=== PATIENT | female | born 1960 | race Caucasian/White ===

== ENCOUNTER → 2016-08-17 | Outpatient (REF) | payer OTHER ==
[~2016-08-17] MED LIST: ALBU17IN INH; ALDA25TA2 PO; ASPI81TA85 PO; BYDU1INJ SC; COZA50TA PO; DRIS50002 PO; FIBE625T PO; FLON1SPR; FLUO10CA8 PO; K-TA1TAB PO; MIRA33504 PO; PRAV40TA2 PO; PRIL20CA9 PO; PROZ10CA7 PO; PROZ20CA11 PO; TRIC145T PO
[2016-08-17 12:21] LABS: ALBUMIN 3.4 GM/DL (3.2-5.2); ALBUMIN/GLOBULIN RATIO 0.89 (1.00-1.93); BILIRUBIN,TOTAL 0.3 MG/DL (0.2-1.0); CALCIUM LEVEL 11.6 MG/DL (8.5-10.1); CREATININE FOR GFR 1.53 MG/DL (0.55-1.02); GLOMERULAR FILTRATION RATE 37.5 (>51); POTASSIUM SERUM 4.6 MEQ/L (3.5-5.1); TOTAL PROTEIN 7.2 GM/DL (6.4-8.2)
== END ==
LOC: M SFHCPLAZ 08:08
PROVIDERS: ATTEND Nurse Practitioner Family
DX: N18.3 Chronic kidney disease, stage 3 (moderate) (principal); E11.21 Type 2 diabetes mellitus with diabetic nephropathy

== ENCOUNTER → 2016-08-20 | Outpatient (REF) | payer OTHER ==
[2016-08-20 14:18] LABS: ALBUMIN 3.4 GM/DL (3.2-5.2); CREATININE FOR GFR 1.55 MG/DL (0.55-1.02); PHOSPHORUS LEVEL 2.9 MG/DL (2.5-4.9); POTASSIUM SERUM 4.6 MEQ/L (3.5-5.1)
== END ==
LOC: M SFHCPLAZ 08:28
PROVIDERS: ATTEND Nurse Practitioner Family
DX: E83.52 Hypercalcemia (principal)

== ENCOUNTER → 2016-09-21 | Outpatient (REF) | payer OTHER ==
[2016-09-21 12:53] LABS: CALCIUM LEVEL 10.3 MG/DL (8.5-10.1); CREATININE FOR GFR 1.48 MG/DL (0.55-1.02); POTASSIUM SERUM 4.4 MEQ/L (3.5-5.1)
== END ==
LOC: M SFHCPLAZ 08:31
PROVIDERS: ATTEND Nurse Practitioner Family
DX: E11.21 Type 2 diabetes mellitus with diabetic nephropathy (principal); E83.52 Hypercalcemia

== ENCOUNTER → 2016-10-24 | Outpatient (REF) | payer OTHER | LOC: M SFHCPLAZ 08:39 | PROVIDERS: ATTEND Nurse Practitioner Family | DX: I65.9 Occlusion and stenosis of unspecified precerebral artery (principal); E11.21 Type 2 diabetes mellitus with diabetic nephropathy ==

== ENCOUNTER → 2017-01-24 | Outpatient (REF) | payer OTHER ==
[~2017-01-24] MED LIST changes: -TRIC145T PO; +TRIC145T22 PO
[2017-01-24 12:51] LABS: ALBUMIN 3.6 GM/DL (3.2-5.2); ALBUMIN/GLOBULIN RATIO 0.86 (1.00-1.93); BILIRUBIN,TOTAL 0.4 MG/DL (0.2-1.0); CALCIUM LEVEL 12.1 MG/DL (8.5-10.1); CREATININE FOR GFR 1.81 MG/DL (0.55-1.02); GLOMERULAR FILTRATION RATE 30.9 (>51); POTASSIUM SERUM 4.6 MEQ/L (3.5-5.1); TOTAL PROTEIN 7.8 GM/DL (6.4-8.2)
== END ==
LOC: M SFHCPLAZ 08:20
PROVIDERS: ATTEND Nurse Practitioner Family
DX: N18.3 Chronic kidney disease, stage 3 (moderate) (principal); E78.2 Mixed hyperlipidemia; E11.65 Type 2 diabetes mellitus with hyperglycemia

== ENCOUNTER → 2017-01-25 | Outpatient (REF) | payer OTHER | LOC: M SFHCPLAZ 12:52 | PROVIDERS: ATTEND Family Medicine | DX: E83.52 Hypercalcemia (principal); Z53.9 Procedure and treatment not carried out, unspecified reason ==

== ENCOUNTER → 2017-01-29 | Outpatient (REF) | payer OTHER ==
[2017-01-29 15:24] LABS: TOTAL PROTEIN 7.6 GM/DL (6.4-8.2)
[2017-01-31 10:40] LABS: ALBUMIN 4.02 GM/DL (3.29-5.55); ALBUMIN % 52.9 % (55.8-66.1)
[2017-01-31 10:41] LABS: GAMMA GLOBULIN % 17.8 % (11.1-18.8)
[2017-01-31 14:13] LABS: FREE KAPPA LIGHT CHAINS SERUM 77.2 mg/L (3.3-19.4); FREE LAMBDA LIGHT CHAINS SERUM 40.3 mg/L (5.7-26.3); KAPPA/LAMBDA RATIO SERUM 1.92 (0.26-1.65)
== END ==
LOC: M LAB REF 13:23
PROVIDERS: ATTEND Internal Medicine Nephrology
DX: R80.9 Proteinuria, unspecified (principal); E83.52 Hypercalcemia

== ENCOUNTER → 2017-01-31 | Outpatient (REF) | payer OTHER | LOC: M LABDRAWP 14:31 | PROVIDERS: ATTEND Family Medicine | DX: E83.52 Hypercalcemia (principal); E78.2 Mixed hyperlipidemia; N18.3 Chronic kidney disease, stage 3 (moderate); E11.65 Type 2 diabetes mellitus with hyperglycemia; R94.6 Abnormal results of thyroid function studies ==

== ENCOUNTER → 2017-01-31 | Outpatient (REF) | payer OTHER ==
[2017-01-31 15:13] LABS: ALBUMIN 3.6 GM/DL (3.2-5.2); ALBUMIN/GLOBULIN RATIO 0.92 (1.00-1.93); ALKALINE PHOSPHATASE 78 U/L (45-117); ALT/SGPT 41 U/L (12-78); ANION GAP 9 MEQ/L (8-16); AST/SGOT 26 U/L (15-37); BILIRUBIN,TOTAL 0.3 MG/DL (0.2-1.0); BLOOD UREA NITROGEN 27 MG/DL (7-18); CALCIUM LEVEL 11.1 MG/DL (8.5-10.1); CARBON DIOXIDE LEVEL 23 MEQ/L (21-32); CHLORIDE LEVEL 106 MEQ/L (98-107); CREATININE FOR GFR 1.44 MG/DL (0.55-1.02); FREE T4 1.12 NG/DL (0.76-1.46); GLOMERULAR FILTRATION RATE 40.2 (>51); GLUCOSE, FASTING 241 MG/DL (70-105); POTASSIUM SERUM 4.6 MEQ/L (3.5-5.1); SODIUM LEVEL 138 MEQ/L (136-145); TOTAL PROTEIN 7.5 GM/DL (6.4-8.2)
[2017-02-01 10:10] LABS: THYROID PEROXIDASE ANTIBODY < 28.0 U/ML (<60.0)
== END ==
LOC: M LAB REF 14:35
PROVIDERS: ATTEND Nurse Practitioner Family
DX: E11.65 Type 2 diabetes mellitus with hyperglycemia (principal); E78.2 Mixed hyperlipidemia; N18.3 Chronic kidney disease, stage 3 (moderate); R94.6 Abnormal results of thyroid function studies

== ENCOUNTER → 2017-03-26 | Outpatient (CLI) | payer OTHER ==
--- NOTE | 2017-03-27 16:07 | REP ---
Thyroid uptake and scan: History: Hyperthyroidism. Technique: 378.5 microcuries of I 123 sodium iodide is ingested and 24 uptake value and functional thyroid images are acquired. Findings: The 24 uptake value is low at 12.08% (25-35%). Functional images show asymmetric thyroid lobes, right larger than left. No cold or warm lesion is identified. Impression: Asymmetric size thyroid lobes, right larger than left. Low thyroid uptake. 12%. No cold or warm lesion seen. Signed by Izaiah Dyer MD 03/27/2017 05:04 P
== END ==
LOC: M RAD 08:09
PROVIDERS: ATTEND Internal Medicine Endocrinology, Diabetes & Metabolism
DX: E05.90 Thyrotoxicosis, unspecified without thyrotoxic crisis or storm (principal)

== ENCOUNTER → 2017-04-04 | Outpatient (REF) | payer OTHER ==
[2017-04-04 10:17] LABS: CALCIUM, URINE 8.4 MG/DL
== END ==
LOC: M LAB REF 09:21
PROVIDERS: ATTEND Internal Medicine Endocrinology, Diabetes & Metabolism
DX: E21.3 Hyperparathyroidism, unspecified (principal)

== ENCOUNTER → 2017-04-05 | Outpatient (CLI) | payer OTHER ==
--- NOTE | 2017-04-08 11:09 | DEXA ---
AP SPINE L1 - L4 1.435 1.9 2.8 LT FEMUR TOTAL 1.192 1.5 2.2 RT FEMUR TOTAL 1.189 1.4 2.1 TOTAL BODY TOTAL OTHER LEFT WRIST 0.927 0.6 1.1 DUAL FEMUR FRAX* ASSESSMENT Risk factors: 10 year probability of fracture Major osteoporotic fracture Hip fracture COMMENTS: Normal bone densitometry of the spine and hips. The density of the spine has decreased 0.5% since 07/2007. The density of the left hip has decreased 11.2% since 07/2007. The density of the right hip has decreased 12.4% since 07/2007. The decreased density of the spine does not represent a significant change. The decreased density of the left hip does represent a significant change. The decreased density of the right hip does represent a significant change. FOLLOW-UP: Recommendation for the next bone density exam: 5 years. SANDY
== END ==
LOC: M WHC 08:13
PROVIDERS: ATTEND Internal Medicine Endocrinology, Diabetes & Metabolism
DX: M81.0 Age-related osteoporosis without current pathological fracture (principal)

== ENCOUNTER → 2017-05-06 | Outpatient (REF) | payer OTHER | LOC: M LAB REF 17:07 | PROVIDERS: ATTEND Internal Medicine Nephrology | DX: N18.3 Chronic kidney disease, stage 3 (moderate) (principal); R80.9 Proteinuria, unspecified ==

== ENCOUNTER → 2017-06-05 | Outpatient (CLI) | payer OTHER | LOC: M PAIN 09:00 | DX: M48.061 Spinal stenosis, lumbar region without neurogenic claudication (principal); M79.1 Myalgia; I12.9 Hypertensive chronic kidney disease with stage 1 through stage 4 chronic kidney disease, or unspecified chronic kidney disease; N18.3 Chronic kidney disease, stage 3 (moderate); E11.22 Type 2 diabetes mellitus with diabetic chronic kidney disease; F32.9 Major depressive disorder, single episode, unspecified; E11.21 Type 2 diabetes mellitus with diabetic nephropathy; E78.00 Pure hypercholesterolemia, unspecified; J45.909 Unspecified asthma, uncomplicated; E21.3 Hyperparathyroidism, unspecified; Z88.5 Allergy status to narcotic agent; Z88.6 Allergy status to analgesic agent; Z88.8 Allergy status to other drugs, medicaments and biological substances; Z79.4 Long term (current) use of insulin; Z79.82 Long term (current) use of aspirin; Z79.899 Other long term (current) drug therapy; Z87.891 Personal history of nicotine dependence | CPT/HCPCS: G0463 ==

== ENCOUNTER → 2017-06-18 | Outpatient (REF) | payer OTHER, MEDICAID ==
[2017-06-18 14:10] LABS: ALBUMIN 3.6 GM/DL (3.2-5.2); ALBUMIN/GLOBULIN RATIO 0.92 (1.00-1.93); ALKALINE PHOSPHATASE 97 U/L (45-117); ALT/SGPT 49 U/L (12-78); ANION GAP 6 MEQ/L (8-16); AST/SGOT 30 U/L (7-37); BILIRUBIN,TOTAL 0.4 MG/DL (0.2-1.0); BLOOD UREA NITROGEN 29 MG/DL (7-18); CALCIUM LEVEL 10.5 MG/DL (8.5-10.1); CARBON DIOXIDE LEVEL 26 MEQ/L (21-32); CHLORIDE LEVEL 101 MEQ/L (98-107); CHOLESTEROL LEVEL 220 MG/DL (<200); CHOLESTEROL RISK RATIO 5.945 (<5); CREATININE FOR GFR 1.53 MG/DL (0.55-1.02); GLOMERULAR FILTRATION RATE 37.4 (>51); GLUCOSE, FASTING 227 MG/DL (70-105); HDL CHOLESTEROL 37 MG/DL (>40); LDL CHOLESTEROL 123.6 MG/DL (<100); NON-HDL-C 183 MG/DL; POTASSIUM SERUM 5.1 MEQ/L (3.5-5.1); SODIUM LEVEL 133 MEQ/L (136-145); TOTAL PROTEIN 7.5 GM/DL (6.4-8.2); TRIGLYCERIDES LEVEL 297 MG/DL (<150)
[2017-06-18 14:21] LABS: ESTIMATED AVERAGE GLUCOSE 237 MG/DL (60-110); HEMOGLOBIN A1c 9.9 %
== END ==
LOC: M SFHCPLAZ 13:09
DX: I10 Essential (primary) hypertension (principal); E11.21 Type 2 diabetes mellitus with diabetic nephropathy; E78.2 Mixed hyperlipidemia

== ENCOUNTER → 2017-06-20 | Outpatient (CLI) | payer OTHER | LOC: M WHC 07:53 | DX: Z12.31 Encounter for screening mammogram for malignant neoplasm of breast (principal) | CPT/HCPCS: 77067 ==

== ENCOUNTER → 2017-06-20 | Outpatient (REF) | payer OTHER | LOC: M SFHCWAGY 08:44 | DX: Z12.72 Encounter for screening for malignant neoplasm of vagina (principal) | CPT/HCPCS: 88142 ==

== ENCOUNTER → 2017-07-03 | Outpatient (CLI) | payer OTHER | LOC: M RAD 10:39 | DX: M51.36 Other intervertebral disc degeneration, lumbar region (principal); M79.1 Myalgia | CPT/HCPCS: 72080 ==

== ENCOUNTER → 2017-07-03 | Outpatient (CLI) | payer OTHER | LOC: M PAIN 09:15 | DX: M79.1 Myalgia (principal); M48.061 Spinal stenosis, lumbar region without neurogenic claudication; E11.21 Type 2 diabetes mellitus with diabetic nephropathy; I12.9 Hypertensive chronic kidney disease with stage 1 through stage 4 chronic kidney disease, or unspecified chronic kidney disease; N18.3 Chronic kidney disease, stage 3 (moderate); E55.9 Vitamin D deficiency, unspecified; F32.9 Major depressive disorder, single episode, unspecified; Z79.4 Long term (current) use of insulin; Z79.82 Long term (current) use of aspirin; Z79.891 Long term (current) use of opiate analgesic; Z79.899 Other long term (current) drug therapy; Z87.891 Personal history of nicotine dependence; Z88.8 Allergy status to other drugs, medicaments and biological substances | CPT/HCPCS: G0463 ==

== ENCOUNTER → 2017-07-19 | Outpatient (CLI) | payer OTHER | LOC: M RAD 10:46 | DX: E21.3 Hyperparathyroidism, unspecified (principal) | CPT/HCPCS: 76536 ==

== ENCOUNTER → 2017-10-21 | Outpatient (REF) | payer OTHER | LOC: M LAB REF 12:59 | DX: N18.3 Chronic kidney disease, stage 3 (moderate) (principal); R80.9 Proteinuria, unspecified ==

== ENCOUNTER → 2017-12-10 | Outpatient (REF) | LOC: M SMT 09:12 | DX: Z02.71 Encounter for disability determination (principal) ==

== ENCOUNTER → 2018-02-06 | Outpatient (REF) | payer OTHER ==
[2018-02-06 12:52] LABS: ALBUMIN 3.5 GM/DL (3.2-5.2); ALBUMIN/GLOBULIN RATIO 0.83 (1.00-1.93); ALKALINE PHOSPHATASE 65 U/L (45-117); ALT/SGPT 41 U/L (12-78); ANION GAP 6 MEQ/L (8-16); AST/SGOT 29 U/L (7-37); BILIRUBIN,TOTAL 0.4 MG/DL (0.2-1.0); BLOOD UREA NITROGEN 27 MG/DL (7-18); CARBON DIOXIDE LEVEL 28 MEQ/L (21-32); CHLORIDE LEVEL 106 MEQ/L (98-107); CREATININE FOR GFR 1.64 MG/DL (0.55-1.30); GLOMERULAR FILTRATION RATE 34.5 (>51); GLUCOSE, FASTING 115 MG/DL (70-100); POTASSIUM SERUM 4.2 MEQ/L (3.5-5.1); SODIUM LEVEL 140 MEQ/L (136-145); TOTAL PROTEIN 7.7 GM/DL (6.4-8.2)
== END ==
LOC: M SFHCPLAZ 10:10
DX: E11.21 Type 2 diabetes mellitus with diabetic nephropathy (principal); N18.3 Chronic kidney disease, stage 3 (moderate)

== ENCOUNTER → 2018-02-08 | Outpatient (CLI) | payer OTHER | LOC: M WUC 12:29 | DX: M25.572 Pain in left ankle and joints of left foot (principal) | CPT/HCPCS: 73610 ==

== ENCOUNTER → 2018-03-27 | Outpatient (REF) | payer OTHER ==
[2018-03-27 14:50] LABS: COMPLEMENT C3 127 MG/DL (90-180)
[2018-04-01 15:09] LABS: ANCA-ATYPICAL <1:20 titer (Neg:<1:20); ANTI DOUBLE STRAND-DNA AB 1 IU/mL (0-9); ANTINUCLEAR ANTIBODIES DIRECT Negative (Negative); CYTOPLASMIC NEUTROP AB ANCA-C <1:20 titer (Neg:<1:20); PERINUCLEAR AB ANCA-P <1:20 titer (Neg:<1:20)
== END ==
LOC: M LAB REF 14:03
DX: N18.3 Chronic kidney disease, stage 3 (moderate) (principal); R80.9 Proteinuria, unspecified
CPT/HCPCS: 86160

== ENCOUNTER → 2018-03-28 | Outpatient (CLI) | payer OTHER | LOC: M RAD 08:47 | DX: Z12.2 Encounter for screening for malignant neoplasm of respiratory organs (principal); R91.1 Solitary pulmonary nodule; F17.200 Nicotine dependence, unspecified, uncomplicated | CPT/HCPCS: G0297 ==

== ENCOUNTER → 2018-04-22 | Outpatient (CLI) | payer OTHER, MEDICAID ==
[2018-04-22 09:53] LABS: FREE T4 1.06 NG/DL (0.76-1.46)
== END ==
LOC: M LAB 08:33
DX: E05.90 Thyrotoxicosis, unspecified without thyrotoxic crisis or storm (principal)
CPT/HCPCS: 84443

== ENCOUNTER → 2018-05-31 | Outpatient (REF) | payer OTHER, MEDICAID ==
[~2018-05-31] MED LIST changes: -DRIS50002 PO; +DRIS50003 PO
[2018-06-02 10:32] LABS: CREATININE 24 HOUR, URINE 1381.6 MG/24HR (600-1800); CREATININE, URINE 45.3 MG/DL
== END ==
LOC: M LAB REF 09:45
PROVIDERS: ATTEND Internal Medicine Nephrology
DX: N18.3 Chronic kidney disease, stage 3 (moderate) (principal); R80.9 Proteinuria, unspecified

== ENCOUNTER → 2018-08-22 | Outpatient (REF) | payer OTHER ==
[2018-08-22 13:01] LABS: ALBUMIN 3.1 GM/DL (3.2-5.2); BILIRUBIN,TOTAL 0.4 MG/DL (0.2-1.0); CALCIUM LEVEL 9.3 MG/DL (8.5-10.1); CHOLESTEROL RISK RATIO 5.611 (<5); CREATININE FOR GFR 1.38 MG/DL (0.55-1.30); POTASSIUM SERUM 4.7 MEQ/L (3.5-5.1); TOTAL PROTEIN 6.8 GM/DL (6.4-8.2)
[2018-08-22 13:05] LABS: HEMOGLOBIN A1c 6.7 %
== END ==
LOC: M SFHCPLAZ 08:25
PROVIDERS: ATTEND Nurse Practitioner Family
DX: E78.2 Mixed hyperlipidemia (principal); I12.9 Hypertensive chronic kidney disease with stage 1 through stage 4 chronic kidney disease, or unspecified chronic kidney disease; K75.81 Nonalcoholic steatohepatitis (NASH); E11.21 Type 2 diabetes mellitus with diabetic nephropathy

== ENCOUNTER → 2018-09-10 | Outpatient (CLI) | payer OTHER ==
--- NOTE | 2018-09-10 10:11 | REPMRS ---
Patient History The patient states she has not had a clinical breast exam in over a year. Family history of prostate cancer at age 50 or over in father, prostate cancer at age 50 or over in maternal uncle. 3D TOMOSYNTHESIS WAS PERFORMED. Digital Woman Screen Mammo: September 10, 2018 - Exam #: [id number] Bilateral CC and MLO view(s) were taken. Technologist: Clari Bernard, Technologist Prior study comparison: June 20, 2017, digital woman screen mammo performed at [facility]. June 12, 2016, digital woman screen mammo performed at [facility]. FINDINGS: There are scattered fibroglandular densities. There has been no change in the appearance of the mammogram from the prior studies. There is a mild amount of residual fibroglandular tissue which is fairly symmetric. There is no interval development of dominant mass, architectural distortion, or clustered microcalcification suggestive of malignancy. Assessment: BI-RADS/ACR category 1 mammogram. Negative Mammogram. Recommendation Routine screening mammogram in 1 year (for women over age 40). This mammogram was interpreted with the aid of an FDA-approved computer-aided dectection system. Electronically Signed By: Laurent Hanson MD 09/10/18 [id number]
== END ==
LOC: M WHC 07:05
PROVIDERS: ATTEND Nurse Practitioner Family
DX: Z12.31 Encounter for screening mammogram for malignant neoplasm of breast (principal)

== ENCOUNTER → 2018-11-24 | Outpatient (REF) | payer OTHER, MEDICAID ==
[2018-11-24 19:57] LABS: INR 0.89; PROTHROMBIN TIME 12.1 SECONDS (12.1-14.4)
== END ==
LOC: M LAB REF 17:04
PROVIDERS: ATTEND Internal Medicine Nephrology
DX: Z01.818 Encounter for other preprocedural examination (principal)

== ENCOUNTER → 2018-11-24 | Outpatient (REF) | payer OTHER, MEDICAID | LOC: M LAB REF 12:47 | PROVIDERS: ATTEND Internal Medicine | DX: E03.9 Hypothyroidism, unspecified (principal) ==

== ENCOUNTER → 2019-07-03 | Outpatient (CLI) | payer OTHER ==
[~2019-07-03] MED LIST changes: +FLUO10CA15 PO; -FLUO10CA8 PO
--- NOTE | 2019-07-03 14:31 | REP ---
CT CHEST WITHOUT CONTRAST: Low-dose screening exam. HISTORY: Heavy smoker. Comparison CT studies of the chest are from March 28, 2018 and May 05 2009. FINDINGS: There are clips in the gallbladder fossa. There are scattered small subcentimeter pulmonary nodules which are unchanged from the 03/28/2018 prior study here. These include a 5 mm nodule in the left upper lobe on page 23 of 100 in series 201. There is a 5 mm lingular nodule on page 46. These two are the two largest pulmonary nodules. There are stable small ground-glass opacities in the right upper lobe on pages 36-38. No pulmonary mass lesion is seen. The study is otherwise unremarkable. These nodules are new when compared to the 2008 prior study but unchanged from March 28, 2018. IMPRESSION: Stable small subcentimeter noncalcified pulmonary nodules measuring up to 5 mm. Lung BIRADS category II findings. Repeat CT study recommended 1 year. Electronically Signed by Izaiah Dyer MD 07/03/2019 08:47 P
== END ==
LOC: M RAD 08:22
PROVIDERS: ATTEND Family Medicine
DX: Z12.2 Encounter for screening for malignant neoplasm of respiratory organs (principal); F17.200 Nicotine dependence, unspecified, uncomplicated; R91.8 Other nonspecific abnormal finding of lung field

== ENCOUNTER → 2020-01-28 | Outpatient (REF) | payer OTHER, MEDICAID ==
[~2020-01-28] MED LIST changes: -ASPI81TA85 PO; +ASPI81TA86 PO; -FLUO10CA15 PO; +FLUO10CA16 PO
[2020-03-25 18:06] LABS: FREE T4 1.19 NG/DL (0.76-1.46); THYROID STIMULATING HORMONE 1.16 uIU/ML (0.358-3.740)
== END ==
LOC: M LAB REF 11:07
PROVIDERS: ATTEND Nurse Practitioner Family
DX: E21.0 Primary hyperparathyroidism (principal)

== ENCOUNTER → 2020-03-30 | Outpatient (REF) | payer OTHER ==
[2020-03-30 13:48] LABS: HEMATOCRIT 45.4 % (36.0-47.0); HEMOGLOBIN 15.1 g/dl (12.0-15.5); MEAN CORPUSCULAR HEMOGLOBIN 29.4 pg (27.0-33.0); MEAN CORPUSCULAR HGB CONC 33.3 g/dl (32.0-36.5); MEAN CORPUSCULAR VOLUME 88.5 fl (80.0-96.0); PLATELET COUNT, AUTOMATED 199 10^3/uL (150-450); RED BLOOD COUNT 5.13 10^6/uL (4.00-5.40); WHITE BLOOD COUNT 8.9 10^3/uL (4.0-10.0)
[2020-03-30 14:27] LABS: FREE T4 1.08 NG/DL (0.76-1.46); THYROID STIMULATING HORMONE 0.737 uIU/ML (0.358-3.740)
[2020-03-30 14:40] LABS: HEMOGLOBIN A1c 6.6 %
== END ==
LOC: M SFHCPLAZ 10:18
PROVIDERS: ATTEND Family Medicine
DX: R53.83 Other fatigue (principal); E11.21 Type 2 diabetes mellitus with diabetic nephropathy

== ENCOUNTER → 2020-06-22 | Outpatient (REF) | payer OTHER ==
[~2020-06-22] MED LIST changes: +ADME100I2; +BACL10TA2 PO; +ECOT81TA5 PO; +GABA-843 PO; +GABA600T4 PO; +LEVO150T7 PO; +MIRA3350 PO; +TOUJ1.2I SC; +TRUL0.5I SC; +VENTAER INH
[2020-06-24 18:11] LABS: TOTAL PROTEIN 6.8 GM/DL (6.4-8.2)
[2020-06-28 10:36] LABS: ALBUMIN 3.64 GM/DL (3.29-5.55); ALBUMIN % 53.6 % (55.8-66.1); ALPHA-1-GLOBULIN % 4.1 % (2.9-4.9); ALPHA-1-GLOBULINS 0.28 GM/DL (0.17-0.41); ALPHA-2-GLOBULINS 0.84 GM/DL (0.42-0.99); ALPHA-2-GLOBULINS % 12.3 % (7.1-11.8); BETA-1-GLOBULINS 0.48 GM/DL (0.28-0.60); BETA-2-GLOBULINS 0.54 GM/DL (0.19-0.55); BETA-2-GLOBULINS % 7.9 % (3.2-6.5); GAMMA GLOBULIN % 15.1 % (11.1-18.8); GAMMA GLOBULINS 1.03 GM/DL (0.65-1.58)
== END ==
LOC: M LAB REF 16:56
PROVIDERS: ATTEND Nurse Practitioner Family
DX: E83.52 Hypercalcemia (principal)

== ENCOUNTER → 2020-07-19 | Outpatient (CLI) | payer OTHER, MEDICAID ==
[~2020-07-19] MED LIST changes: +GABA-282 PO; -GABA-843 PO
--- NOTE | 2020-07-19 14:42 | REPPI ---
INDICATION: G62.9 NEUROPATHY M54.5 LOW BACK PAIN COMPARISON: 12/10/2017 TECHNIQUE: AP, lateral, bilateral oblique, and coned-down views of the lumbar spine. FINDINGS: Alignment and lordosis maintained. No acute fracture/compression injury or subluxation. Moderate/early advanced multilevel degenerative changes are similar to prior examination and include endplate sclerosis, osteophytosis, disc space narrowing and facet arthropathy. No acute spondylolysis or spondylolisthesis. IMPRESSION: Moderate/early advanced multilevel degenerative spondylosis similar to prior examination. <Electronically signed by Gunner Ledezma > 07/19/20 [id number]
--- NOTE | 2020-07-19 14:45 | REPPI ---
INDICATION: G62.9 NEUROPATHY M54.5 LOW BACK PAIN COMPARISON: 06/30/2007 TECHNIQUE: AP, lateral, flexion/extension, bilateral oblique, swimmer's and open-mouth views. FINDINGS: Alignment and lordosis is maintained. There is no evidence for acute fracture / compression injury or subluxation. Mild/early moderate multilevel degenerative changes include elements of endplate sclerosis with disc space narrowing and marginal spurring/early osteophyte formation. Spinous processes are intact. Oblique views suggest relatively normal neural foramen. Open mouth view demonstrates normal C1-C2 articulation and odontoid process. IMPRESSION: Mild/early moderate multilevel degenerative spondylosis similar to prior examination. <Electronically signed by Gunner Ledezma > 07/19/20 [id number]
== END ==
LOC: M PLAIMG 14:06
PROVIDERS: ATTEND Family Medicine
DX: G62.9 Polyneuropathy, unspecified (principal); M54.5 Low back pain

== ENCOUNTER → 2020-07-22 | Outpatient (CLI) | payer OTHER ==
--- NOTE | 2020-07-26 15:02 | SLEEPHOME ---
DATE: 07/22/2020 ORDERED BY: Dr. Correia Diagnostic home sleep testing was performed due to concern for the obstructive sleep apnea syndrome in this patient with a significant past medical history of hypertension, diabetes, and obesity. For testing, a nocturnal T3 respiratory monitoring device was used. Continuous record was made of pulse, oxygen saturation, air flow, chest and abdominal strain, and body position. There was 9 hours and 59 minutes of data reviewed. There was 6 hours and 3 minutes marked as time in bed. During the interval marked time in bed there were 87 respiratory events identified of 10 seconds in duration or greater for a respiratory event index of 14.3. The events were primarily obstructive. Fifteen mixed and central apneas were seen. Pulse rate and saturation measurements were lost early in the study, as the monitor became displaced. Testing was performed in both the supine and nonsupine positions. IMPRESSION: Abnormal home sleep testing with repetitive respiratory events and respiratory event index of 14.3 per hour is consistent with the obstructive sleep apnea syndrome (G47.33). RECOMMENDATION: Referral for formal sleep evaluation and consideration of titration of pressure therapy would be prudent.
== END ==
LOC: M SLEEP HO 09:34
PROVIDERS: ATTEND Student in an Organized Health Care Education/Training Program
DX: G47.33 Obstructive sleep apnea (adult) (pediatric) (principal)

== ENCOUNTER → 2020-07-27 | Outpatient (CLI) | payer OTHER, MEDICAID | LOC: M PLALAB 12:03 | PROVIDERS: ATTEND Internal Medicine | DX: E11.65 Type 2 diabetes mellitus with hyperglycemia (principal); Z79.4 Long term (current) use of insulin; E03.9 Hypothyroidism, unspecified ==

== ENCOUNTER → 2020-08-02 | Outpatient (REF) | payer OTHER ==
[2020-08-02 17:46] LABS: ALBUMIN 3.1 GM/DL (3.2-5.2); CALCIUM LEVEL 9.8 MG/DL (8.5-10.1); CREATININE FOR GFR 1.81 MG/DL (0.55-1.30); GLOMERULAR FILTRATION RATE 30.5 (>51); PHOSPHORUS LEVEL 2.8 MG/DL (2.5-4.9); POTASSIUM SERUM 4.6 MEQ/L (3.5-5.1)
== END ==
LOC: M SFHCPLAZ 13:57
PROVIDERS: ATTEND Family Medicine
DX: N18.9 Chronic kidney disease, unspecified (principal)

== ENCOUNTER → 2020-08-11 | Outpatient (CLI) | payer OTHER ==
[~2020-08-11] MED LIST changes: +CYMB60CA3 PO; +LIPI20TA PO; +TIZA2CAP PO
== END ==
LOC: M LABSMTC 09:42
PROVIDERS: ATTEND Anesthesiology
DX: Z01.812 Encounter for preprocedural laboratory examination (principal); Z20.822 Contact with and (suspected) exposure to COVID-19

== ENCOUNTER → 2020-08-23 | Outpatient (REF) | payer OTHER | LOC: M LAB REF 17:09 | PROVIDERS: ATTEND Nurse Practitioner Family | DX: E83.52 Hypercalcemia (principal) ==

== ENCOUNTER → 2020-08-24 | Outpatient (CLI) | payer OTHER ==
--- NOTE | 2020-08-24 09:12 | REP ---
INDICATION: ENCOUNTER FOR SCREENING FOR LUNG CANCER COMPARISON: 07/03/2019, 03/28/2018 TECHNIQUE: Axial noncontrast images from the thoracic inlet to the upper abdomen using low-dose lung screening technique (LDCT). FINDINGS: Lung serrato are well aerated. The previously identified nodular densities in the lingula and left lower lobe remain essentially stable compared through 2018. There is a subtle new area of ground-glass opacity along the periphery of the right lower lobe likely representing transient dependent atelectatic changes. No new consolidation, suspicious nodule or mass lesion appreciated. No effusion. No pneumothorax. Tracheobronchial tree is patent. IMPRESSION: 1. Lung-RADS category 2 with small stable nodules unchanged through 2018. Management recommendations include annual low-dose CT surveillance. 2. Vague area of ground-glass opacity along the periphery of the right lower lobe likely transient atelectasis. <Electronically signed by Gunner Ledezma > 08/24/20 0908
== END ==
LOC: M RAD 08:40
PROVIDERS: ATTEND Family Medicine
DX: Z12.2 Encounter for screening for malignant neoplasm of respiratory organs (principal)

== ENCOUNTER → 2020-09-11 | Outpatient (CLI) | payer OTHER | LOC: M LABSMTC 08:39 | PROVIDERS: ATTEND Anesthesiology | DX: Z01.812 Encounter for preprocedural laboratory examination (principal); Z20.822 Contact with and (suspected) exposure to COVID-19 ==

== ENCOUNTER 2020-09-16 06:56 | Day surgery (SDC) | payer OTHER ==
[~2020-09-16] VITALS: Ht 172.7 cm; Wt 121.6 kg
[2020-09-16] MEDS ORDERED: NS 1,000 ML IV ONE (07:00)
[2020-09-16] MEDS ORDERED: LIDOCAINE 2% 100MG/5ML SDV (FOR ANES.) As Ordered ONE (07:04)
[2020-09-16] MEDS ORDERED: propofoL 200 MG/20 ML VIAL As Ordered ONE (07:04)
--- NOTE | 2020-09-16 08:40 | ROOR ---
Patient Name: Elsa Chou Procedure Date: 09/16/2020 8:10 AM Date of : 1960 Age: 60 Room: [facility] Gender: Female Note Status: Finalized Procedure: Colonoscopy Indications: High risk colon cancer surveillance: Personal history of colonic polyps, Last colonoscopy: September 2015 Providers: Onofre PAUL MD Referring MD: LESVIA ACUÑA MD Requesting Provider: Medicines: Monitored Anesthesia Care Complications: No immediate complications. Procedure: Pre-Anesthesia Assessment: - The heart rate, respiratory rate, oxygen saturations, blood pressure, adequacy of pulmonary ventilation, and response to care were monitored throughout the procedure. The Colonoscope was introduced through the anus and advanced to the cecum, identified by appendiceal orifice and ileocecal valve. The colonoscopy was performed without difficulty. The patient tolerated the procedure well. The quality of the bowel preparation was good. Findings: The perianal and digital rectal examinations were normal. Three sessile polyps were found in the sigmoid colon and descending colon. The polyps were 4 to 5 mm in size. These polyps were removed with a cold snare. Resection and retrieval were complete. A 6 mm polyp was found in the mid transverse colon. The polyp was sessile. The polyp was removed with a cold snare. Resection and retrieval were complete. Mild sigmoid diverticulosis and small internal hemorrhoids. The exam was otherwise without abnormality on direct and retroflexion views. Impression: - Three 4 to 5 mm polyps in the sigmoid colon and in the descending colon, removed with a cold snare. Resected and retrieved. - One 6 mm polyp in the mid transverse colon, removed with a cold snare. Resected and retrieved. - Mild sigmoid diverticulosis and small internal hemorrhoids. - The examination was otherwise normal on direct and retroflexion views. Recommendation: - Repeat colonoscopy for surveillance based on pathology results. - Repeat colonoscopy in 3 - 5 years for surveillance. - Telephone endoscopist for pathology results in 2 weeks. Procedure Code(s): --- Professional --- 89489, Colonoscopy, flexible; with removal of tumor(s), polyp(s), or other lesion(s) by snare technique Diagnosis Code(s): --- Professional --- Z86.010, Personal history of colonic polyps K63.5, Polyp of colon CPT copyright 2019 [employer]. All rights reserved. The codes documented in this report are preliminary and upon chips screen tender review may be revised to meet current compliance requirements. Onofre Paul MD Onofre PAUL MD 09/16/2020 8:41:11 AM Electronically signed by Onofre PAUL MD Number of Addenda: 0 Note Initiated On: 09/16/2020 8:10 AM Estimated Blood Loss: Estimated blood loss: none.
[2020-09-16 10:42] VITALS: BP 135/82
== END 2020-09-16 09:30 | disposition home or self-care (01) ==
LOC: M OPP 06:56
PROVIDERS: ATTEND Internal Medicine Gastroenterology
DX: Z12.11 Encounter for screening for malignant neoplasm of colon (principal); Z86.010 Personal history of colon polyps; K63.5 Polyp of colon; K57.30 Diverticulosis of large intestine without perforation or abscess without bleeding; K64.8 Other hemorrhoids; E11.9 Type 2 diabetes mellitus without complications; Z79.4 Long term (current) use of insulin; Z79.82 Long term (current) use of aspirin; Z79.899 Other long term (current) drug therapy; Z88.1 Allergy status to other antibiotic agents; Z88.2 Allergy status to sulfonamides; Z88.5 Allergy status to narcotic agent; Z88.8 Allergy status to other drugs, medicaments and biological substances

== ENCOUNTER → 2020-09-21 | Outpatient (CLI) | payer OTHER ==
--- NOTE | 2020-09-21 12:25 | REP ---
INDICATION: LILLIANA SCR MAMMO/Z12.31. COMPARISON: 09/10/2018 as well as other prior exams. TECHNIQUE: MLO and CC views bilateral breasts. Tomosynthesis performed. FINDINGS: Mild fibroglandular tissue scattered bilaterally. There is a new oval nodule inferiorly and laterally in the right breast approximately 8 mm in diameter. I see no other evidence of mass or clustered microcalcifications bilaterally. The Volpara volumetric breast density pattern is A. IMPRESSION: BIRADS/ACR category 0, incomplete. New 8 mm nodule inferolateral right breast. Recommend spot compression views and ultrasound to further evaluate. This patient's Tyrer-Cuzick lifetime breast cancer risk assessment score is 4.6%. This mammogram was interpreted with the aid of an FDA-approved computer-aided detection system. The patient states she had a clinical breast exam in over 1 year ago. The patient letter being requested is M0. RECOMMENDATION: Recommend spot compression views and ultrasound right breast as discussed above. <Electronically signed by Laurent Hanson > 09/21/20 [id number]
== END ==
LOC: M WHC 10:47
PROVIDERS: ATTEND Family Medicine
DX: Z12.31 Encounter for screening mammogram for malignant neoplasm of breast (principal); N63.10 Unspecified lump in the right breast, unspecified quadrant

== ENCOUNTER → 2020-11-03 | Outpatient (CLI) | payer OTHER, MEDICAID ==
--- NOTE | 2020-11-03 12:52 | REP ---
INDICATION: ADD VIEWS RIGHT BREAST; RIGHT BREAST ADD VIEWS. Screening mammography demonstrated an 8 mm nodular density in the right breast inferiorly and laterally. Diagnostic imaging was recommended. COMPARISON: Comparison is made with mammography from a September 21, 2020 as well as September 10, 2018 and and June 20, 2017. TECHNIQUE: Magnified focal spot-compression CC, mL, and MLO views of the right breast are obtained. 3D tomography is deployed in the mediolateral projection and targeted right breast sonography is carried out. This mammogram was interpreted with the aid of an FDA-approved computer-aided detection system. FINDINGS: Magnified focal spot-compression cc view confirms the presence of an ill-defined 7 mm nodule in the lateral aspect of the right breast. This is somewhat less conspicuous but present on true mediolateral and MLO views. It is visible on mL 3D tomography. In this projection it has well-circumscribed margins. Scattered fibroglandular elements are seen. No other suspicious finding is observed. Mammographic images are otherwise unremarkable. The Volpara volumetric breast density pattern is b. Targeted ultrasound: Targeted right breast sonography is performed from 6:00 to 9:00 through the inferolateral quadrant. At 7 o'clock is, 5.5 cm from the nipple, there is a subtly hypoechoic 7.7 x 4.6 x 6.8 mm nodule which is felt to account for the mammographic opacity. It has low shear wave elastography characteristics, 30.1 kill a pass calcis. It is not a simple cyst. Sonography demonstrates a few slightly prominent breast ducts as well. No acoustic shadowing or other soft tissue mass seen. IMPRESSION: BIRADS/ACR category 4 suspicious right breast mammographic and sonographic findings. 7 mm hypoechoic nodule seen on sonography accounting for the nodular density noted mammographically. This patient's Tyrer-zi lifetime breast cancer risk assessment score is 4.6%. RECOMMENDATION: Ultrasound-guided needle biopsy with marker clip placement and post clip placement mammography recommended.. The patient letter being requested is M4. <Electronically signed by Mk Dyer > 11/03/20 [id number]
== END ==
LOC: M WHC 09:30
PROVIDERS: ATTEND Family Medicine
DX: N63.10 Unspecified lump in the right breast, unspecified quadrant (principal)
CPT/HCPCS: 76642; 77065; G0279

== ENCOUNTER 2020-11-11 15:53 | Observation (INO) | payer MEDICAID, OTHER ==
[~2020-11-11] VITALS: Ht 172.7 cm; Wt 126.7 kg
[~2020-11-11 15:53] MED LIST changes: -AMLO1TAB25 PO; -CINA30TA5 PO; -FLUTISP NARES
[2020-11-11] MEDS ORDERED: NS 1,000 ML IV SCH (17:10)
--- NOTE | 2020-11-11 18:44 | REP ---
INDICATION: andrews COMPARISON: 09/20/2011 TECHNIQUE: Real time albrecht scale ultrasound examination using curved array transducer. FINDINGS: Kidneys are normal in contour, size, echogenicity and reniform shape. No hydronephrosis, nephrolithiasis, or renal mass lesion. No perinephric fluid collection. Right kidney measures 10.5 x 5.1 x 5.9 cm. Left kidney measures 10.7 x 5.5 x 4.9 cm and includes 2.6 cm upper pole cyst. Bladder is unremarkable. IMPRESSION: 1. No evidence for hydronephrosis. <Electronically signed by Gunner Ledezma > 11/11/20 [id number]
[2020-11-11 18:55] LABS: BASO % 0.5 % (0.0-1.0); EOS # 0.2 10^3/uL (0.0-0.5); EOS % 2.3 % (0.0-3.0); HEMATOCRIT 44.1 % (36.0-47.0); HEMOGLOBIN 14.4 g/dl (12.0-15.5); LYMPH # 1.6 10^3/uL (1.5-5.0); LYMPH % 22.3 % (24.0-44.0); MEAN CORPUSCULAR HEMOGLOBIN 29.1 pg (27.0-33.0); MEAN CORPUSCULAR HGB CONC 32.7 g/dl (32.0-36.5); MEAN CORPUSCULAR VOLUME 89.1 fl (80.0-96.0); MONO # 0.7 10^3/uL (0.0-0.8); NEUTROPHILS # 4.8 10^3/uL (1.5-8.5); NEUTROPHILS % 65.5 % (36.0-66.0); PLATELET COUNT, AUTOMATED 185 10^3/uL (150-450); RED BLOOD COUNT 4.95 10^6/uL (4.00-5.40); WHITE BLOOD COUNT 7.3 10^3/uL (4.0-10.0)
[2020-11-11] MEDS ORDERED: GLUCOSE 4GM CHEW TABLET PO PRN (19:00)
[2020-11-11] MEDS ORDERED: MAALOX 30 ML SUSP *UDC PO PRN (19:00)
[2020-11-11] MEDS ORDERED: ACETAMINOPHEN TAB 650MG DOSE (2X325MG) PO PRN (19:00)
[2020-11-11] MEDS ORDERED: DEXTROSE 50% 50 ML SYRINGE IV PRN (19:00)
[2020-11-11] MEDS ORDERED: MOM 30ML SUSPENSION UDC PO PRN (19:00)
[2020-11-11] MEDS ORDERED: GLUCAGON INJ 1MG VIAL SC PRN (19:00)
[2020-11-11 19:04] LABS: HEMOGLOBIN A1c 7.6 %
--- NOTE | 2020-11-11 19:07 | HPEPDOC ---
[facility] Medical History & Physical Date of Admission November 11, 2020 Date of Service: November 11, 2020 Attending Physician: MIRANDA MINOR MD History and Physical CHIEF COMPLAINT: [60 y/o female presents with abnormal lab values] HISTORY OF PRESENT ILLNESS: [This is a 60 y/o female with a pmh of IDDM2, htn, hypothyroidism, asthma, gerd, ckd3 who presents to the ED after being found to have an elevated creatinine of 2.3 on routine blood work at her [employer] and [employer]. Patient has a baseline cr of around 1.6-1.8. Patient states that she has had increased fatigue over the past few months. Patient also states that she is getting over a bad upper respiratory infection that she suffered a few weeks ago . Patient states that she feels as though she has been drinking enough and urinating enough, but is not sure. Patient states that she has also been having occasional bouts of RUQ and LUQ abdominal pain that she describes as a squeezing feeling. Patient states that these episodes come and go without obvious trigger. Patient also complains of increase in her chronic back pain. Patient denies fever, chills, chest pains, sob, dysuria, hematuria, n/v/d/c. ] PAST MEDICAL HISTORY: 1. [See HPI PAST SURGICAL HISTORY: 1. [Cholecystectomy]. 2. [Hysterectomy]. 3. [ 4. Thyroidectomy w parathyroidectomy of 2 parathyroid glands]. SOCIAL HISTORY: Tobacco use:[Current smoker] ETOH: [Denies] Illicit drug use: [Denies] FAMILY HISTORY: CAD, DM, HTN ALLERGIES: Please see below. REVIEW OF SYSTEMS: CONSTITUTIONAL: [See HPI]. HEENT: [See HPI]. CARDIOVASCULAR: [See HPI]. RESPIRATORY: [See HPI]. GASTROINTESTINAL: [See HPI]. GENITOURINARY: [See HPI]. SKIN: [Denies rash]. MUSCULOSKELETAL: [See HPI]. NEUROLOGICAL: [Denies paresthesia]. PSYCHIATRIC: [Admits to anxiety]. ENDOCRINE: [Hx of DM]. HEMATOLOGIC/LYMPHATIC: [Denies easy bruising]. HOME MEDICATIONS: Please see below. PHYSICAL EXAMINATION: VITAL SIGNS: Please see below. GENERAL APPEARANCE: [This is a 60 y/o female who appears older than her stated age. Patient is laying in bed in no acute respiratory distress.]. HEENT: [No mass or lesion. EOMI. No scleral icterus. Nares patent. Oral mucosa dry without erythema. Poor dentition.]. CARDIOVASCULAR: [Regular rate, rhythm. No murmurs, rubs, gallops]. LUNGS: [Good air flow b/l. No wheezing, rales, rhonchi.]. ABDOMEN: [Obese, soft, nontender]. MUSCULOSKELETAL: [No joint deformity]. EXTREMITIES: [No peripheral edema noted. No overlying skin changes. Pulses intact.]. NEUROLOGICAL: [Speech clear. A+Ox3. no focal deficits]. PSYCHIATRIC: [Patient tearful at times during exam. Affect appears appropriate.]. LABORATORY DATA: See below. IMAGING: [Renal US: FINDINGS: Kidneys are normal in contour, size, echogenicity and reniform shape. No hydronephrosis, nephrolithiasis, or renal mass lesion. No perinephric fluid collection. Right kidney measures 10.5 x 5.1 x 5.9 cm. Left kidney measures 10.7 x 5.5 x 4.9 cm and includes 2.6 cm upper pole cyst. Bladder is unremarkable. IMPRESSION: 1. No evidence for hydronephrosis.] MICROBIOLOGY: Please see below. ASSESSMENT: [This is a 60 y/o female with a pmh of IDDM2, htn, hypothyroidism, asthma, gerd, ckd3 who presents to the ED after being found to have an elevated creatinine of 2.3 on routine blood work at her [employer]. Patient has a baseline cr of around 1.6-1.8. Patient presents with many vague nonspecific complaints that may be related to dehydration leading to her andrews.]. . PLAN: 1. [ANDREWS on CKD - Patient has baseline cr of around 1.6 according to our records. Labwork done at outpatient office today was 2.3, redraw in the ED was 2.2 - Most likely etiology is dehydration, patient had recent acute illness and did not increase oral intake - Will begin IVF after 1L fluid bolus - UA, Urine electrolytes ordered, renal us unremarkable - Will trend renal function - Admit to med surg under obs for ivf 2. Hypercalcemia - Likely secondary to hyperparathyroidism - Patient is on sensipar three times a week at home, and calcium is 11.3. Potentially acutely elevated secondary to dehydration. Will recheck calcium in the morning and if not improved, patient may need uptitration of her dose 3. DM2 - A1C 7.6. Pt follows endo - Sliding scale insulin - Continue at home basal insulin dosing - Hypoglycemic protocol 4. HTN - Holding losartan and spironolactone for now in the presence of ANDREWS 5. Hypothyroidism - Continue levothyroxine 6. HLD - continue atorvastatin 7. Chronic back pain - Continue gabapentin, baclofen, tizanidine 8. Asthma - Pt does not appear to be in exacerbation - Continue at home rescue inhaler DVT prophylaxis - Teds and SCDs ]. Vital Signs Vital Signs Date Time Temp Pulse Resp B/P (MAP) Pulse Ox O2 Delivery O2 Flow Rate FiO2 11/11/20 15:54 97.4 87 20 147/76 (99) 96 Room Air Laboratory Data Labs 24H Laboratory Tests 2 11/11/20 18:34: Immature Granulocyte % (Auto) 0.4, Neutrophils (%) (Auto) 65.5, Lymphocytes (%) (Auto) 22.3L, Monocytes (%) (Auto) 9.0H, Eosinophils (%) (Auto) 2.3, Basophils (%) (Auto) 0.5, Neutrophils # (Auto) 4.8, Lymphocytes # (Auto) 1.6, Monocytes # (Auto) 0.7, Eosinophils # (Auto) 0.2, Basophils # (Auto) 0.0, Nucleated Red Blood Cells % (auto) 0.0, Estimated Mean Plasma Glucose 171H, Hemoglobin A1c 7.6, Whole Blood Ionized Calcium 5.6H CBC/BMP Laboratory Tests 11/11/20 18:34 Home Medications Scheduled Aspirin (Ecotrin) 81 Mg Tablet.dr, 81 MG PO DAILY Atorvastatin Calcium (Lipitor) 20 Mg Tablet, 40 MG PO DAILY Baclofen (Baclofen) 10 Mg Tablet, 5 MG PO BID Baclofen (Baclofen) 10 Mg Tablet, 10 MG PO QHS Cinacalcet HCl (Cinacalcet HCl) 30 Mg Tablet, 30 MG PO 3XW Dulaglutide (Trulicity) 1.5 Mg/0.5 Ml Pen.injctr, 1.5 MG SC QWEEK Duloxetine Hcl (Cymbalta) 60 Mg Capsule.dr, 60 MG PO QHS Gabapentin (Gabapentin) 300 Mg Capsule, 300 PO BID Gabapentin (Gabapentin) 600 Mg Tablet, 600 MG PO QHS Insulin Glargine,Hum.rec.anlog (Toujeo Solostar) 300 Unit/1 Ml Insuln.pen, 100 UNIT SC QHS Insulin Lispro (Admelog Solostar) 100 Unit/1 Ml Insuln.pen, 1 TID sliding scale Levothyroxine Sodium (Levothyroxine Sodium) 150 Mcg Tablet, 150 MCG PO DAILY Losartan Potassium (Cozaar) 50 Mg Tab, 100 MG PO DAILY Spironolactone (Aldactone) 25 Mg Tab, 25 MG PO DAILY Tizanidine HCl (Tizanidine HCl) 2 Mg Capsule, 2 MG PO QHS Scheduled PRN Albuterol Sulfate (Ventolin Hfa) 18 Gm Hfa.aer.ad, 2 PUFFS INH QID PRN for SOB/WHEEZING Fluticasone Propionate (Fluticasone Propionate) 16 Gm Steele.susp, 1 SPRAY NARES BID PRN for CONGESTION Polyethylene Glycol 3350 (Miralax) 119 Gm Powder, 17 GM PO DAILY PRN for CONSTIPATION dilute in 8 ounces of water or juice Allergies Coded Allergies: cyclobenzaprine (Verified Allergy, Intermediate, hives, 08/09/20) Sulfa (Sulfonamide Antibiotics) (Verified Allergy, Unknown, hives, 08/09/20) amoxicillin (Verified Adverse Reaction, Intermediate, vomiting, 08/09/20) bupropion (Verified Adverse Reaction, Intermediate, vomiting, 08/09/20) carisoprodol (Verified Adverse Reaction, Intermediate, headache, 08/09/20) clavulanic acid (Verified Adverse Reaction, Intermediate, vomiting, 08/09/20) codeine (Verified Adverse Reaction, Intermediate, headache, 08/09/20) insulin glargine (Verified Adverse Reaction, Intermediate, weight gain, 08/09/20) metformin (Verified Adverse Reaction, Intermediate, kidney doctor doesn't want her to use, 08/09/20) ibuprofen (Verified Adverse Reaction, Unknown, due to kidney issues, 08/09/20) propoxyphene (Verified Adverse Reaction, Unknown, addiction, 08/09/20) A-FIB/CHADSVASC A-FIB History Current/History of A-Fib/PAF?: No MEHRDAD GONZÁLES November 11, 2020 19:06
[2020-11-11 19:14] LABS: MAGNESIUM LEVEL 2.1 MG/DL (1.8-2.4); URIC ACID 7.2 MG/DL (2.6-6.0)
[2020-11-11] MEDS ORDERED: NS 1,000 ML IV ONE (19:20)
[2020-11-11 19:31] LABS: ALBUMIN 3.1 GM/DL (3.2-5.2); BILIRUBIN,TOTAL 0.3 MG/DL (0.2-1.0); CALCIUM LEVEL 11.3 MG/DL (8.5-10.1); CREATININE FOR GFR 2.2 MG/DL (0.55-1.30); GLOMERULAR FILTRATION RATE 24.3 (>51); POTASSIUM SERUM 4.8 MEQ/L (3.5-5.1)
[2020-11-11] MEDS ORDERED: FLUTISP NARES (19:36)
[2020-11-11] MEDS ORDERED: CINA30TA5 PO (19:36)
[2020-11-11] MEDS: HumaLOG INSULIN (NovoLOG) PER UNIT SC SCH (19:53)
[2020-11-11] MEDS ORDERED: ALBUTEROL 90 MCG/ACT 8GM HFA INHALER INH PRN (20:05)
[2020-11-11] MEDS ORDERED: FLUTICASONE PROP 0.05% NASAL SPRAY 16 GM (FLONASE) NARES PRN (20:05)
[2020-11-11] MEDS ORDERED: MIRALAX *UNIT DOSE* 17GM PACKET PO PRN (20:05)
[2020-11-11] MEDS ORDERED: PILL CUTTER 1 EACH XX PRN (20:15)
[2020-11-11 20:41] LABS: RSV AMPLIFICATION NEGATIVE (NEGATIVE)
[2020-11-11] MEDS ORDERED: tiZANidine 4 MG TAB PO SCH (21:00)
[2020-11-11] MEDS ORDERED: GABAPENTIN 300 MG CAP PO SCH (21:00)
[2020-11-11] MEDS: DOCUSATE SODIUM 100MG CAPSULE PO SCH (21:00)
[2020-11-11] MEDS ORDERED: DULoxetine 30 MG CAP (CYMBALTA) PO SCH (21:00)
[2020-11-11] MEDS ORDERED: HumaLOG INSULIN (NovoLOG) PER UNIT SC SCH (21:00)
[2020-11-11] MEDS ORDERED: LEVEMIR (INSULIN DETEMIR) 1 UNITS/0.01ML SC SCH (21:00)
[2020-11-11] MEDS ORDERED: BACLOFEN 10 MG TAB PO SCH (21:00)
[2020-11-11 22:45] VITALS: BP 136/66
[2020-11-11 23:22] LABS: APPEARANCE, URINE CLEAR (CLEAR); BACTERIA, URINE AUTO 1+ (NEGATIVE); BILIRUBIN, URINE AUTO NEGATIVE (NEGATIVE); BLOOD, URINE BLOOD NEGATIVE (NEGATIVE); COLOR, URINE STRAW (YELLOW); GLUCOSE, URINE (UA) AUTO 1+ mg/dL (NEGATIVE); KETONE, URINE AUTO NEGATIVE (NEGATIVE); LEUKOCYTE ESTERASE, URINE AUTO NEGATIVE (NEGATIVE); NITRITE, URINE AUTO NEGATIVE (NEGATIVE); PROTEIN, URINE AUTO 3+ mg/dL (NEGATIVE); RBC, URINE AUTO 0 /HPF (0-3); SPECIFIC GRAVITY URINE AUTO 1.005 (1.002-1.035); SQUAMOUS EPITHELIAL CELL UR AU 0 /HPF (0-6); UROBILINOGEN, URINE AUTO 0.2 mg/dL (0.0-2.0); WBC, URINE AUTO 0 /HPF (0-3)
[2020-11-12 02:59] LABS: CREATININE,RANDOM URINE 50.7 MG/DL; POTASSIUM RANDOM URINE 22.1 MEQ/L
[2020-11-12 06:00] VITALS: BP 147/78
[2020-11-12] MEDS ORDERED: LEVOTHYROXINE 150MCG TABLET (0.15MG) PO SCH (06:00)
[2020-11-12 06:40] LABS: HEMATOCRIT 39.7 % (36.0-47.0); HEMOGLOBIN 12.8 g/dl (12.0-15.5); MEAN CORPUSCULAR HEMOGLOBIN 29.2 pg (27.0-33.0); MEAN CORPUSCULAR HGB CONC 32.2 g/dl (32.0-36.5); MEAN CORPUSCULAR VOLUME 90.6 fl (80.0-96.0); PLATELET COUNT, AUTOMATED 156 10^3/uL (150-450); RED BLOOD COUNT 4.38 10^6/uL (4.00-5.40); WHITE BLOOD COUNT 6.4 10^3/uL (4.0-10.0)
[2020-11-12 07:26] LABS: CALCIUM LEVEL 9.7 MG/DL (8.5-10.1); CREATININE FOR GFR 1.97 MG/DL (0.55-1.30); GLOMERULAR FILTRATION RATE 27.6 (>51); MAGNESIUM LEVEL 2.2 MG/DL (1.8-2.4); POTASSIUM SERUM 4.8 MEQ/L (3.5-5.1)
[2020-11-12] MEDS: HumaLOG INSULIN (NovoLOG) PER UNIT SC SCH ×2 (07:40→12:48)
[2020-11-12] MEDS: BACLOFEN 5MG PER 1/2 TABLET PO SCH ×2 (07:41→12:48)
[2020-11-12] MEDS: DOCUSATE SODIUM 100MG CAPSULE PO SCH (07:41)
[2020-11-12] MEDS: GABAPENTIN 300 MG CAP PO SCH ×2 (07:42→12:48)
--- NOTE | 2020-11-12 08:53 | ECGEPIP ---
[facility] - ED Test Date: 2020-11-11 Pat Name: OSBALDO DONOVAN Department: Room: [place] [address] Gender: Female Inspector Scales: TITO : 1960 Requested By: Radha Dave Order Number: [id number] Reading MD: Radha Dave Measurements Intervals [place] Rate: 77 P: 41 HI: 206 QRS: 23 QRSD: 98 T: 69 QT: 392 QTc: 443 Interpretive Statements Normal sinus rhythm prwp NSTTW abnormalities No prior Electronically Signed on 11-12-2020 8:53:54 EDT by Radha Dave
[2020-11-12] MEDS ORDERED: ASPIRIN 81MG ENTERIC TABLET PO SCH (09:00)
[2020-11-12] MEDS ORDERED: ATORVASTATIN 20 MG TAB PO SCH (09:00)
[2020-11-12 14:00] VITALS: BP 149/83
[2020-11-12] MEDS ORDERED: AMLO1TAB25 PO (14:51)
--- NOTE | 2020-11-12 20:33 | CR ---
CONSULTATION DATE: 11/12/2020 REQUESTING PHYSICIAN: Priscila Melissa MD REASON FOR CONSULTATION: Acute kidney injury superimposed on chronic kidney disease. HISTORY OF PRESENT ILLNESS: Miss Chou is a 60-year-old female with multiple chronic medical problems including a history of insulin requiring diabetes, hypertension, hypothyroidism, asthma, gastroesophageal reflux disease and chronic kidney disease, stage 3. She is followed as an outpatient in our clinic by the nurse practitioner. Her baseline creatinine is less than 1.8 mg/dL and she had labs done by her auto mechanics teacher yesterday which showed a creatinine of 2.3 and she was advised to come to emergency room. She did receive about 1-1/2 liters of normal saline since admission and this morning her creatinine is down to 1.9. A nephrology consultation was requested this morning about recommendations for further care and possible discharge and followup. PAST MEDICAL HISTORY: 1. Insulin-requiring diabetes. 2. Hypertension. 3. Hypothyroidism. 4. Asthma. 5. Gastroesophageal reflux disease. 6. History of chronic kidney disease, stage 3. 7. Morbid obesity. PAST SURGICAL HISTORY: 1. Cholecystectomy. 2. Hysterectomy. 3. . 4. Thyroidectomy. 5. Parathyroidectomy. PERSONAL AND SOCIAL HISTORY: Patient is active smoker and denies alcohol or drug use. FAMILY HISTORY: Significant for diabetes, hypertension and coronary artery disease. HOME MEDICATIONS: 1. Aspirin 81 mg daily. 2. Atorvastatin 40 mg daily. 3. Baclofen 5 mg b.i.d. 4. Cinacalcet 30 mg three times a week which she has not started as yet but did receive it from her pharmacy just yesterday. 5. Trulicity 1.5 mg once a week. 6. Cymbalta 60 mg at bedtime. 7. Gabapentin 300 mg b.i.d. and 600 mg at bedtime. 8. Toujeo insulin 100 units daily. 9. Admelog insulin per sliding scale. 10. Levothyroxine 150 mcg daily. 11. Losartan 100 mg daily. 12. Spironolactone 25 mg daily. 13. Tizanidine 2 mg at bedtime. 14. Miralax as needed. 15. Albuterol as needed. ALLERGIES: SHE HAS MULTIPLE ALLERGIES WHICH ARE RECORDED IN HER EMR. REVIEW OF SYSTEMS: Patient denies any diarrhea or vomiting. She has no fever or chills. She denies any dyspnea, chest pain or leg edema. Ears, nose and throat are unremarkable. Cardiovascular system: Negative for dyspnea, chest pain or leg edema. Respiratory system is negative for cough or hemoptysis. GI system negative for vomiting or diarrhea. system is negative for dysuria or hematuria. She denies any history of kidney stones. She has a renal ultrasound which did not show any hydronephrosis. Musculoskeletal system is negative for any significant leg edema. She denies any NSAID use. Endocrine system is significant for hypothyroidism and insulin requiring diabetes. Psychosocial system: Negative for depression or anxiety. Neurological system: Significant for significant peripheral neuropathy. She is on high dose gabapentin. Hematological system is negative for any long-term anticoagulation. PHYSICAL EXAMINATION: Vital signs: Temperature 98 degrees Fahrenheit, heart rate 70 per minute and respiratory rate 20 per minute. Blood pressure 147/78 mmHg and oxygen saturation 95% on room air. Head is atraumatic. Neck: Supple and without any JVD or thyroid enlargement. Heart sounds are regular and lungs sound clear to auscultation. Abdomen: Obese, soft and nontender and bowel sounds are normal. Extremities: Without any cyanosis or clubbing. She has no peripheral edema. Neurologically she is grossly intact without any focal deficit. LABORATORY DATA: Yesterday her labs showed a BUN of 38 and creatinine 2.2. Calcium level is 11.3 and albumin 3.1. Today her BUN is 35, creatinine 1.97 and calcium level down to 9.7. Sodium is 137 and potassium 4.8. Hemoglobin is 12.8 and hematocrit 39.7. Urinalysis did show 3+ protein but no blood. PROBLEMS: 1. Acute kidney injury superimposed on chronic kidney disease. She has a known history of diabetic nephropathy with baseline creatinine about 1.6 to 1.8 mg/dL. She did have hypercalcemia yesterday which is suggestive of possible volume depletion. Her kidney function did improve after she received about 1-1/2 liter of normal saline. She is not on any diuretic other than spironolactone as an outpatient. I advised her to ensure adequate oral fluid intake and hydration. I do not feel that she needs any further IV fluid at this point. A renal ultrasound was reviewed which did not show any hydronephrosis or kidney stones. 2. Hypercalcemia probably related to dehydration. She is not on any calcium supplement or Calcitriol. In fact, she has been prescribed with Sensipar which she has not started as yet. I have advised her to start it as she just received it from the pharmacy yesterday. This will be followed up as an outpatient. 3. Hypertension. Her blood pressure seems reasonable on current medications which she should continue. 4. Disposition: From a renal standpoint, the patient can be discharged to home today and follow up in our dialysis clinic next week. She understands to call the clinic next week and make an appointment for a sooner visit. Thank you for asking me to participate in the care of Miss Chou.
--- NOTE | 2020-11-13 07:57 | IPNPDOC ---
Subjective Date Seen The patient was seen on 11/12/20. Subjective Chief Complaint/HPI No complaints this morning wants to go home. Objective Physical Examination General Exam: Positive: Alert, Cooperative, No Acute Distress Eye Exam: Positive: PERRLA, Conjunctiva & lids normal, EOMI; Negative: Sclera icteric ENT Exam: Positive: Atraumatic, Mucous membr. moist/pink, Pharynx Normal Neck Exam: Positive: Supple; Negative: JVD, thyromegaly Chest Exam: Positive: Clear to auscultation, Normal air movement Heart Exam: Positive: Rate Normal, Regular Rhythm, Normal S1, Normal S2; Negative: Murmurs, Rubs Abdomen Exam: Positive: Normal bowel sounds, Soft; Negative: Tenderness, Hepatospenomegaly Extremity Exam: Negative: Clubbing, Cyanosis, Edema Assessment /Plan Assessment This is a 60 y/o female with a pmh of IDDM2, htn, hypothyroidism, asthma, gerd, ckd3, major depressive disorder, hyperparathyroidism who presents to the ED after being found to have an elevated creatinine of 2.3 on routine blood work. Patient has a baseline cr of around 1.6-1.8. . She was admitted for CONNIE on CKD. CONNIE on CKD Received IV fluid with some improvement of renal function. Patient does have history of diabetic nephropathy and IgA nephropathy. Seen by nephrology . OK to discharge home Hypercalcemia secondary to hyperparathyroidism Sensipar three times a week at home DM2 A1C 7.6. Pt follows endo Continue home meds. HTN Stopped losartan and spironolactone for now in the presence of CONNIE will dc home with amlodipine. follow up with nephrology in 1 week. Hypothyroidism/multinodular goiter Continue levothyroxine HLD continue atorvastatin Chronic back pain Continue gabapentin, tizanidine Asthma Continue home inhaler IgA nephropathy and the diabetic glomerulosclerosis Seen in renal biopsy done for chronic proteinuria Follow up nephrology Chronic low back pain DEGENERATIVE DISC DISEASE AND SPINAL STENOSIS. MODERATE SPINAL STENOSIS L3-4 MRI 2010; GERD PPI Dispo: Home . Follow up nephrology in 1 week. Plan/VTE VTE Prophylaxis Ordered?: No (freely ambulatory) VS, I&O, 24H, Fishbone Vital Signs/I&O Vital Signs Date Time Temp Pulse Resp B/P (MAP) Pulse Ox O2 Delivery O2 Flow Rate FiO2 11/12/20 06:00 98.0 71 20 147/78 (101) 95 Room Air I&O- Last 24 Hours up to 6 AM 11/12/20 06:00 Intake Total 1460 ml Output Total 800 ml Balance 660 ml Laboratory Data 24H LABS Laboratory Tests 2 11/11/20 18:34: Immature Granulocyte % (Auto) 0.4, Neutrophils (%) (Auto) 65.5, Lymphocytes (%) (Auto) 22.3L, Monocytes (%) (Auto) 9.0H, Eosinophils (%) (Auto) 2.3, Basophils (%) (Auto) 0.5, Neutrophils # (Auto) 4.8, Lymphocytes # (Auto) 1.6, Monocytes # (Auto) 0.7, Eosinophils # (Auto) 0.2, Basophils # (Auto) 0.0, Nucleated Red Blood Cells % (auto) 0.0, Anion Gap 4L, Glomerular Filtration Rate 24.3L, Estimated Mean Plasma Glucose 171H, Hemoglobin A1c 7.6, Osmolality 301H, Uric Acid 7.2H, Calcium Level 11.3H, Whole Blood Ionized Calcium 5.6H, Magnesium Level 2.1, Total Bilirubin 0.3, Aspartate Amino Transf (AST/SGOT) 23, Alanine Aminotransferase (ALT/SGPT) 32, Alkaline Phosphatase 93, Total Creatine Kinase 101, Total Protein 7.0, Albumin 3.1L, Albumin/Globulin Ratio 0.8L 11/11/20 19:46: Bedside Glucose (Misc Panel) 160H 11/11/20 19:57: Coronavirus (COVID-19)(PCR) NEGATIVE, Influenza Type A (RT-PCR) NEGATIVE, Influenza Type B (RT-PCR) NEGATIVE, Respiratory Syncytial Virus (PCR) NEGATIVE 11/11/20 22:49: Bedside Glucose (Misc Panel) 236H 11/11/20 23:03: Urine Color STRAW, Urine Appearance CLEAR, Urine pH 6.0, Urine Specific Starlight 1.005, Urine Protein 3+H, Urine Glucose (Auto)(UA) 1+H, Urine Ketones (Auto) NEGATIVE, Urine Blood NEGATIVE, Urine Nitrite NEGATIVE, Urine Bilirubin NEGATIVE, Urine Urobilinogen 0.2, Urine Leukocyte Esterase (Auto) NEGATIVE, Urine WBC (Auto) 0, Urine RBC (Auto) 0, Urine Hyaline Casts (Auto) 0, Urine Bacteria (Auto) 1+H, Urine Squamous Epithelial Cells 0, Urine Sperm (Auto) 5/29/21 02:23: Urine Osmolality 372, Urine Random Creatinine 50.7, Urine Random Sodium 70, Urine Random Potassium 22.1 11/12/20 05:58: Nucleated Red Blood Cells % (auto) 0.0 CBC/BMP Laboratory Tests 11/11/20 18:34 11/12/20 05:58 ANA MAY MD November 12, 2020 07:32
[2020-11-14] MEDS ORDERED: CINACALCET 30 MG TAB (SENSIPAR) PO SCH (09:00)
== END 2020-11-12 16:30 | disposition home or self-care (01) ==
LOC: M ED 15:53 → M ED INP 15:54 → ENRESERV 22:19 → M MSPAV 22:42
PROVIDERS: ADMIT Family Medicine; ATTEND Family Medicine
DX: N17.9 Acute kidney failure, unspecified (principal); N18.30 Chronic kidney disease, stage 3 unspecified; E11.21 Type 2 diabetes mellitus with diabetic nephropathy; E03.9 Hypothyroidism, unspecified; I12.9 Hypertensive chronic kidney disease with stage 1 through stage 4 chronic kidney disease, or unspecified chronic kidney disease; J45.909 Unspecified asthma, uncomplicated; K21.9 Gastro-esophageal reflux disease without esophagitis; F32.9 Major depressive disorder, single episode, unspecified; E21.3 Hyperparathyroidism, unspecified; E83.52 Hypercalcemia; E78.49 Other hyperlipidemia; E04.2 Nontoxic multinodular goiter; F17.218 Nicotine dependence, cigarettes, with other nicotine-induced disorders; Z79.82 Long term (current) use of aspirin; Z79.899 Other long term (current) drug therapy; Z88.0 Allergy status to penicillin; Z88.2 Allergy status to sulfonamides; Z88.8 Allergy status to other drugs, medicaments and biological substances; Z88.5 Allergy status to narcotic agent

== ENCOUNTER → 2020-11-11 | Outpatient (CLI) | payer OTHER, MEDICAID ==
[~2020-11-11] MED LIST changes: +AMLO1TAB25 PO; +CINA30TA5 PO; +FLUTISP NARES
[2020-11-11 13:50] LABS: HEMOGLOBIN A1c 7.4 %
[2020-11-11 14:20] LABS: ALBUMIN 3.1 GM/DL (3.2-5.2); BILIRUBIN,TOTAL 0.3 MG/DL (0.2-1.0); CREATININE FOR GFR 2.24 MG/DL (0.55-1.30); GLOMERULAR FILTRATION RATE 23.8 (>51); POTASSIUM SERUM 4.9 MEQ/L (3.5-5.1); TOTAL 25(OH) VITAMIN D 13.3 NG/ML (30.0-100.0)
== END ==
LOC: M PLALAB 09:35
PROVIDERS: ATTEND Physician Assistant
DX: E11.65 Type 2 diabetes mellitus with hyperglycemia (principal); Z79.4 Long term (current) use of insulin

== ENCOUNTER → 2020-11-17 | Outpatient (REF) | payer OTHER ==
[~2020-11-17] MED LIST changes: +AMLO1TAB25 PO; +CINA30TA5 PO; +FLUTISP NARES
== END ==
LOC: M SFHCPLAZ 13:13
PROVIDERS: ATTEND Family Medicine
DX: C44.02 Squamous cell carcinoma of skin of lip (principal); L57.0 Actinic keratosis

== ENCOUNTER → 2020-11-22 | Outpatient (CLI) | payer OTHER ==
[2020-11-22 10:11] VITALS: BP 164/86
--- NOTE | 2020-11-22 10:24 | REP ---
INDICATION: N63.10 RT BREAST MASS,POST US GUIDED BIOPSY. COMPARISON: 09/21/2020, 11/03/2020. TECHNIQUE: ML and CC views right breast performed following ultrasound-guided biopsy of a nodule in the inferolateral aspect of the right breast. FINDINGS: A biopsy clip is seen along the margin of the nodule. IMPRESSION: Successful ultrasound-guided biopsy of nodule in the inferolateral right breast. RECOMMENDATION: Clinical follow-up. <Electronically signed by Laurent Hanson > 11/22/20 1021
--- NOTE | 2020-11-22 20:16 | REP ---
INDICATION: N63.10 RT BREAST MASS,US GUIDED BIOPSY. COMPARISON: None. TECHNIQUE: The procedure was performed under the general supervision of Dr. Hanson. The patient has a history of a 7 mm hypoechoic nodule in the 7 o'clock position of the right breast seen on a previous ultrasound dated 11/04/1999. The risks and benefits of the procedure were explained to the patient and informed consent was obtained. The right breast nodule was localized using ultrasound guidance. The skin was prepped and draped in a sterile fashion. 1% Xylocaine was used as a local anesthetic. Using ultrasound guidance a 14 gauge coaxial needle biopsy system was inserted and6 core biopsy samples were obtained. A marker clip (HydroMARK shape 3) was placed at the biopsy site The patient tolerated the procedure well and there were no immediate complications. After the appropriate amount of monitored convalescence, the patient was discharged from the department. FINDINGS: None IMPRESSION: Ultrasound-guided right breast biopsy with marker clip placement. (HydroMARK shape 3) <Electronically signed by Sina Younger > 11/22/20 1600 <Electronically signed by Laurent Hanson > 11/22/202011
== END ==
LOC: M WHCPRO 06:38
PROVIDERS: ATTEND Family Medicine
DX: R92.8 Other abnormal and inconclusive findings on diagnostic imaging of breast (principal)

== ENCOUNTER → 2020-11-28 | Outpatient (REF) | payer OTHER ==
[2020-11-28 13:32] LABS: HEMATOCRIT 43.3 % (36.0-47.0); HEMOGLOBIN 14.4 g/dl (12.0-15.5); MEAN CORPUSCULAR HEMOGLOBIN 29.4 pg (27.0-33.0); MEAN CORPUSCULAR HGB CONC 33.3 g/dl (32.0-36.5); MEAN CORPUSCULAR VOLUME 88.5 fl (80.0-96.0); PLATELET COUNT, AUTOMATED 174 10^3/uL (150-450); RED BLOOD COUNT 4.89 10^6/uL (4.00-5.40); WHITE BLOOD COUNT 8.2 10^3/uL (4.0-10.0)
== END ==
LOC: M PLALAB 11:15
PROVIDERS: ATTEND Surgery
DX: R58 Hemorrhage, not elsewhere classified (principal)

== ENCOUNTER → 2020-12-07 | Outpatient (REF) | payer OTHER | LOC: M LAB REF 16:59 | PROVIDERS: ATTEND Nurse Practitioner Family | DX: D47.2 Monoclonal gammopathy (principal); N17.9 Acute kidney failure, unspecified; R80.9 Proteinuria, unspecified ==

== ENCOUNTER → 2020-12-14 | Outpatient (REF) | payer OTHER, MEDICAID | LOC: M LAB REF 18:39 | PROVIDERS: ATTEND Dermatology | DX: D23.111 Other benign neoplasm of skin of right upper eyelid, including canthus (principal) ==

== ENCOUNTER → 2020-12-20 | Outpatient (CLI) | payer OTHER ==
[2020-12-20 13:08] LABS: ALBUMIN 2.6 GM/DL (3.2-5.2); BILIRUBIN,TOTAL 0.3 MG/DL (0.2-1.0); CALCIUM LEVEL 9.7 MG/DL (8.5-10.1); CREATININE FOR GFR 2.24 MG/DL (0.55-1.30); GLOMERULAR FILTRATION RATE 23.8 (>51); POTASSIUM SERUM 4.2 MEQ/L (3.5-5.1); TOTAL PROTEIN 6.6 GM/DL (6.4-8.2)
== END ==
LOC: M LAB 11:46
PROVIDERS: ATTEND Physician Assistant
DX: E83.52 Hypercalcemia (principal)

== ENCOUNTER → 2020-12-22 | Outpatient (CLI) | payer OTHER ==
--- NOTE | 2020-12-22 09:22 | REP ---
INDICATION: OTH ASCITES NOT STONE PROTOCAL COMPARISON: Correlation with renal ultrasound dated 11/11/2020. TECHNIQUE: Axial noncontrast images from the lung bases to the pubic symphysis with coronal and sagittal reformations. This CT examination was performed using the following dose reduction techniques: Automated exposure control, adjustment of mA and/or kv according to the patient's size, and use of iterative reconstruction technique. FINDINGS: Lung bases demonstrates small scattered chronic stable changes as compared to prior chest CT. Visualized heart and pericardium normal. Liver, spleen, pancreas, bilateral adrenal glands are normal. Kidneys demonstrate rounded hypodense and isodense lesions likely representing simple and complex cysts. The enteric system is unremarkable and without obstruction or acute inflammatory process. Normal terminal ileum and cecum identified in the right lower quadrant. Pelvis demonstrates normal bladder and prior hysterectomy. No ascites. No free air. No adenopathy. No focal inflammatory stranding. Abdominal aorta without aneurysm. Musculoskeletal structures demonstrate degenerative changes without acute osseous abnormality. IMPRESSION: 1. No acute abdominopelvic pathology appreciated. 2. No ascites. 3. Renal lesions likely representing simple and complex cysts which are not completely confirmed by recent ultrasound dated 11/11/2020. Pre and postcontrast CT of the abdomen with delayed images should be considered for definitive confirmation. <Electronically signed by Gunner Ledezma > 12/22/20 0918
== END ==
LOC: M RAD 07:39
PROVIDERS: ATTEND Nurse Practitioner Family
DX: N28.1 Cyst of kidney, acquired (principal)

== ENCOUNTER → 2020-12-28 | Outpatient (REF) | payer OTHER ==
[~2020-12-28] MED LIST changes: +AMLO1TAB24 PO; +CETI10CH PO; +FURO20TA2 PO; +HYDR-3713 PO; +METO1TAB32 PO; +MUCI600T31 PO; +POTA20TA6 PO
== END ==
LOC: M LAB REF 17:56
PROVIDERS: ATTEND Internal Medicine Nephrology
DX: E83.42 Hypomagnesemia (principal)

== ENCOUNTER → 2021-01-10 | Outpatient (REF) | payer OTHER | LOC: M SFHCPLAZ 15:16 | PROVIDERS: ATTEND Family Medicine | DX: Z01.818 Encounter for other preprocedural examination (principal) ==

== ENCOUNTER → 2021-01-11 | Outpatient (REF) | payer OTHER | LOC: M LAB REF 17:29 | PROVIDERS: ATTEND Internal Medicine Nephrology | DX: E83.42 Hypomagnesemia (principal) ==

== ENCOUNTER → 2021-01-11 | Outpatient (CLI) | payer OTHER ==
--- NOTE | 2021-01-11 09:38 | REP ---
INDICATION: PREPROCEDURAL EXAMINATION *LABS 1ST, XRY 2ND*. COMPARISON: 04/21/2009 TECHNIQUE: PA and lateral FINDINGS: The superior mediastinal structures are midline. The cardiac silhouette is unremarkable in size, shape, and position. The diaphragmatic surfaces of the lungs are regular, and the costophrenic angles are clear. The pulmonary serrato are clear. The imaged osseous structures are intact. IMPRESSION: There is no acute cardiopulmonary disease. <Electronically signed by Jeremy Lindsay > 01/11/21 0934
[2021-01-11 10:14] LABS: CALCIUM LEVEL 9.5 MG/DL (8.5-10.1); CREATININE FOR GFR 2.53 MG/DL (0.55-1.30); GLOMERULAR FILTRATION RATE 20.7 (>51); POTASSIUM SERUM 4.9 MEQ/L (3.5-5.1)
== END ==
LOC: M LAB 08:51
PROVIDERS: ATTEND Family Medicine
DX: Z01.818 Encounter for other preprocedural examination (principal)

== ENCOUNTER → 2021-01-12 | Outpatient (CLI) | payer OTHER, MEDICAID | LOC: M LABSMTC 12:49 | PROVIDERS: ATTEND Surgery | DX: Z01.818 Encounter for other preprocedural examination (principal); Z20.822 Contact with and (suspected) exposure to COVID-19 ==

== ENCOUNTER → 2021-01-15 | Outpatient (CLI) | payer OTHER ==
--- NOTE | 2021-01-15 14:50 | REPVR ---
PROCEDURE INFORMATION: Exam: MR Lumbar Spine Without Contrast Exam date and time: 01/15/2021 12:52 PM Age: 60 years old Clinical indication: Low back pain; Additional info: Lbp, sciatica TECHNIQUE: Imaging protocol: Multiplanar magnetic resonance images of the lumbar spine without intravenous contrast. COMPARISON: CT Spine, lumbar w/o contrast 08/22/2015 3:00 PM FINDINGS: Vertebrae: No acute fracture in the lumbar spine. Diffuse degenerative facet arthropathy. Spinal cord: The conus medullaris is normal appearance at the L1-L2 level. L1-L2: No significant spinal canal stenosis or neural foraminal narrowing. L2-L3: No significant spinal canal stenosis or neural foraminal narrowing. L3-L4: Diffusely bulging annulus with possible central subligamentous disc herniation with mild spinal canal stenosis but no evidence of neural compromise. L4-L5: Grade 1 anterior spondylolisthesis of L4 on L5 with diffusely bulging annulus and resultant severe spinal canal stenosis and compression of the thecal sac with narrowing of the lateral recesses greater on right than left compressing the exiting L5 nerve roots. The left L4 nerve root does not appear to be compressed in the neural foramen however the right L4 nerve root is compressed and posteriorly displaced in the far lateral position. L5-S1: Diffusely bulging annulus with central annular tear without evidence of compression of the L5 or S1 nerve roots. Soft tissues: Unremarkable. IMPRESSION: Severe spinal canal stenosis at the L4-L5 level due to grade 1 anterior spondylolisthesis associated with subluxed degenerated facet joints. There is compression of the thecal sac and right greater than left L5 nerve roots in the right L4 nerve root in the distal neural foramina far lateral position. Electronically signed by: Linda Alvarado On 01/15/2021 14:50:00 PM
== END ==
LOC: M RAD 11:12
PROVIDERS: ATTEND Nurse Practitioner Family
DX: M48.061 Spinal stenosis, lumbar region without neurogenic claudication (principal); M43.16 Spondylolisthesis, lumbar region; M54.31 Sciatica, right side; M54.5 Low back pain

== ENCOUNTER 2021-01-17 08:13 | Day surgery (SDC) | payer OTHER ==
[~2021-01-17] VITALS: Ht 172.7 cm; Wt 126.1 kg
[~2021-01-17 08:13] MED LIST changes: +CLINDAMYCIN 900 MG in IV 1 EA IV ONE; +HEPARIN SOD (PORCINE) 5000UNITS/ML 1ML VIAL/SYRINGE SQ ONE; +LIDOCAINE 1% MDV 20ML VIAL SQ PRN; +LIDOCAINE 2% 100MG/5ML SDV (FOR ANES.) As Ordered ONE; +LR 1,000 ML IV ONE; +METOCLOPRAMIDE INJ 10MG/2ML VIAL (J2765 PER 1) As Ordered ONE; +MIDAZOLAM INJ 2MG/2ML VIAL (J2250 PER 1MG) As Ordered ONE; +ONDANSETRON 4MG/2ML VIAL As Ordered ONE; +dexameTHASONE 4 MG/ML 1ML VIAL (J1100 PER 1MG) As Ordered ONE; +fentaNYL 100 MCG/2 ML INJECTION (J3010) As Ordered ONE; +propofoL 200 MG/20 ML VIAL As Ordered ONE
[2021-01-17] MEDS ORDERED: propofoL 200 MG/20 ML VIAL As Ordered ONE (10:05)
[2021-01-17] MEDS ORDERED: BUPIVACAINE HCL 0.25% 30ML VIAL As Ordered ONE (10:11)
[2021-01-17] MEDS ORDERED: LIDOCAINE 1% SDV 30ML VIAL As Ordered ONE (10:11)
[2021-01-17] MEDS ORDERED: HEPARIN SOD (PORCINE) 5000UNITS/ML 1ML VIAL/SYRINGE As Ordered ONE (10:40)
[2021-01-17] MEDS ORDERED: KETAMINE HCL 200 MG/20 ML VIAL As Ordered ONE (10:46)
[2021-01-17] MEDS ORDERED: GLYCOPYRROLATE INJ 0.2 MG/ML 2 ML VIAL As Ordered ONE (10:46)
[2021-01-17] MEDS ORDERED: ACETAMINOPHEN 1000MG 100ML IV BTL (OFIRMEV) (J0131 PER 10MG) As Ordered ONE (10:50)
[2021-01-17] MEDS ORDERED: PHENYLephrine 500MCG 5ML (100MCG/ML) SYRINGE As Ordered ONE (11:01)
[2021-01-17] MEDS ORDERED: ePHEDrine SULFATE 25 MG/5 ML(5MG/ML) SYRINGE As Ordered ONE (11:01)
[2021-01-17] MEDS ORDERED: fentaNYL 100 MCG/2 ML INJECTION (J3010) As Ordered ONE (12:13)
[2021-01-17] MEDS ORDERED: ROXI1TAB2 PO (12:50)
[2021-01-17] MEDS ORDERED: fentaNYL 100 MCG/2 ML INJECTION (J3010) IV PRN (13:05)
[2021-01-17] MEDS ORDERED: oxyCODONE 5MG TAB PO PRN (13:05)
[2021-01-17 15:20] VITALS: BP 178/98
--- NOTE | 2021-01-17 20:14 | ROOPDOC ---
[facility] Report Of Operation Report of Operation DATE OF PROCEDURE: 01/17/21 PREPROCEDURE DIAGNOSES: RIGHT BREAST PAPILLARY LESION POSTPROCEDURE DIAGNOSES: SAME PROCEDURE PERFORMED: RIGHT EXCISIONAL BIOPSY WITH INTRAOP WIRE PLACEMENT SURGEON: DR MADISON ALMAGUER ANESTHESIA: GENERAL ESTIMATED BLOOD LOSS: Approximately 50 mL. FINDINGS: clip identified at the anterior edge of dissection, nodule was found close to inferior margin- additional inferior margin taken DESCRIPTION OF PROCEDURE: INDICATIONS: Ms. Chou is a 60-year-old woman who was found to have a suspicious nodule in the right breast on screening mammogram. This was evaluated with US and sonographic correlate was found. US guided biopsy of the right nodule came back as papillary lesion with differential of DCIS. Excisional biopsy of the right breast was offered to the patient. She was medically cleared for surgery by her primary care doctor. Risks and possible complications of surgical procedure including bleeding, infection and injury to surrounding structures were explained to the patient and she wished to proceed. Consent was signed. My initials were placed on the operative site. Subcutaneous injection of 5000 units of heparin was done in Pre op. DETAILS: Patient was taken to the operating room and placed on the operating room table. A sign in was called stating patients name, date of and the procedure to be done. Preoperative antibiotics were infused. Smooth induction of general anes thesia was done. Patients hands were extended on arm rests. Care was taken not to over extend the arms. Pillow was placed under the knees and a foam was placed under the heels. Sequential compression devices were placed and assured to function correctly. Procedure was started with right breast intraop wire localization. Appropriate time out was done and patients name, date of , and the procedure to be done were confirmed. Right breast was cleaned by me. Intraoperative ultrasound was used to confirm location of the Hydromark clip. Location of the clip was marked on the skin as well. 21 G KoApperians Breast Lesion Localization Needle was used to place 25 cm wire. The wire was placed next to the clip and the lesion. The end of the wire was passed slightly distal to the clip. The images were captured confirming adequate placement of the localizing wire. Doula assisted with the wire placement. Next, patients right breast was prepped and draped in the usual fashion. Care was taken not to displace the wire. Appropriate time out was done again prior second part of the procedure. Patients name, date of , and the procedure to be done were confirmed. Next, local anesthetic using 1% lidocaine and 0.25 % Marcaine 50/50 mix was injected at the site of planned inferior periareolar incision. The incision was made with the scalpel. Subcutaneous skin flaps were raised and the guide wire was carefully pulled into the wound. Dissection was carries along the wire until the previously marked on the skin area of target lesion location was encountered. At this point, wider excision of the tissue surrounding the wire was done. The Hydromark clip was identified in the tissue with intraoperative hockey stick ultrasound probe. The end of the wire was identified with palpation. Upon dissection, a hydromark clip was noted at the anterior extent of the specimen. The clip was removed to make sure it is not lost. The double black stitch was placed at the site of the identified clip. The excisional biopsy specimen was carefully removed from the breast keeping its proper orientation and moved to the back table where margins were marked with the surgical inking kit following the standard colors recommendations. The specimen measured 4x3 cm. Specimen was then placed on the grid and placed in [facility]. The Hydromark clip was placed next to the specimen at the anterior edge. The image revealed the wire in the specimen and the clip outside the specimen. The specimen was labeled with patients name and right excisional biopsy and sent to pathology. Upon examining the excisional biopsy margins with intraop ultrasound, it was noted that the suspicious nodule was very close to the inferior margin. Decision was made to take additional inferior margin in case the pathology comes back positive for malignancy. The new margin, most distal from the excisional biopsy site, was marked with the ink and was called a true/ new margin. This was sent as a separate specimen to pathology. Next, the wound was irrigated thoroughly and adequate hemostasis was assured. Additional local anesthetic was injected into surrounding tissues. space was approximated with 2-0 Vicryl. The dermis was closed with 3-0 Vicryl and skin was closed with 4-0 Monocryl. Surgical glue was placed over the incision. Patient emerged from the anesthesia without any problems. Fluffs were placed over the operative site and patients chest was wrapped snuggly in the DYAN wrap. Sponge and instrument counts were done and were correct. Patient tolerated procedure well and was taken to recovery unit in stable condition. MADISON ALMAGUER DO Jan 17, 2021 20:14
== END 2021-01-17 15:24 | disposition home or self-care (01) ==
LOC: M SDC 08:13
PROVIDERS: ATTEND Surgery
DX: D24.1 Benign neoplasm of right breast (principal); E11.22 Type 2 diabetes mellitus with diabetic chronic kidney disease; I10 Essential (primary) hypertension; E78.5 Hyperlipidemia, unspecified; E03.9 Hypothyroidism, unspecified; K21.9 Gastro-esophageal reflux disease without esophagitis; N18.30 Chronic kidney disease, stage 3 unspecified; N25.81 Secondary hyperparathyroidism of renal origin; E83.52 Hypercalcemia; F32.9 Major depressive disorder, single episode, unspecified; F17.218 Nicotine dependence, cigarettes, with other nicotine-induced disorders; Z79.899 Other long term (current) drug therapy; Z79.4 Long term (current) use of insulin; M79.7 Fibromyalgia; J45.909 Unspecified asthma, uncomplicated; Z88.2 Allergy status to sulfonamides; Z88.5 Allergy status to narcotic agent; Z88.0 Allergy status to penicillin; Z88.8 Allergy status to other drugs, medicaments and biological substances
CPT/HCPCS: 19125; 36415; 76942; 86850; 86900; 86901; 88305; 88341; 88342; J0131; J1100; J1644; J2250; J2370; J2405; J2765; J3010

== ENCOUNTER → 2021-02-15 | Outpatient (REF) | payer OTHER ==
[~2021-02-15] MED LIST changes: -CLINDAMYCIN 900 MG in IV 1 EA IV ONE; -HEPARIN SOD (PORCINE) 5000UNITS/ML 1ML VIAL/SYRINGE SQ ONE; -LIDOCAINE 1% MDV 20ML VIAL SQ PRN; -LIDOCAINE 2% 100MG/5ML SDV (FOR ANES.) As Ordered ONE; -LR 1,000 ML IV ONE; -METOCLOPRAMIDE INJ 10MG/2ML VIAL (J2765 PER 1) As Ordered ONE; -MIDAZOLAM INJ 2MG/2ML VIAL (J2250 PER 1MG) As Ordered ONE; -ONDANSETRON 4MG/2ML VIAL As Ordered ONE; +ROXI1TAB2 PO; -dexameTHASONE 4 MG/ML 1ML VIAL (J1100 PER 1MG) As Ordered ONE; -fentaNYL 100 MCG/2 ML INJECTION (J3010) As Ordered ONE; -propofoL 200 MG/20 ML VIAL As Ordered ONE
== END ==
LOC: M LAB REF 12:49
PROVIDERS: ATTEND Internal Medicine Nephrology
DX: N18.4 Chronic kidney disease, stage 4 (severe) (principal); E11.22 Type 2 diabetes mellitus with diabetic chronic kidney disease

== ENCOUNTER → 2021-03-24 | Outpatient (REF) | payer OTHER | LOC: M SFHCPLAZ 14:43 | DX: R05.9 Cough, unspecified (principal) ==

== ENCOUNTER → 2021-03-24 | Outpatient (CLI) | payer OTHER ==
--- NOTE | 2021-03-24 15:14 | REP ---
INDICATION: COUGH, UNSPECIFIED COMPARISON: 01/11/2021 TECHNIQUE: PA and lateral. FINDINGS: The mediastinum and cardiac silhouette are normal. The lung serrato are clear and without acute consolidation, effusion, or pneumothorax. The skeletal structures are intact and normal. IMPRESSION: No acute cardiopulmonary process. <Electronically signed by Gunner Ledezma > 03/24/21 2359
[2021-03-27 14:08] LABS: MYCOPLASMA PNEUMONIAE IgG 644 U/mL (0-99); MYCOPLASMA PNEUMONIAE IgM 927 U/mL (0-769)
== END ==
LOC: M PLAIMG 14:50
PROVIDERS: ATTEND Family Medicine
DX: R05.9 Cough, unspecified (principal)

== ENCOUNTER → 2021-04-07 | Outpatient (REF) | payer OTHER ==
[~2021-04-07] MED LIST changes: -CYMB60CA3 PO; +CYMB60CA4 PO
== END ==
LOC: M SFHCPLAZ 09:09
PROVIDERS: ATTEND Family Medicine
DX: Z53.20 Procedure and treatment not carried out because of patient's decision for unspecified reasons (principal)

== ENCOUNTER → 2021-04-07 | Outpatient (CLI) | payer OTHER ==
[2021-04-07 12:04] LABS: HEMATOCRIT 39.9 % (36.0-47.0); MEAN CORPUSCULAR HEMOGLOBIN 29.1 pg (27.0-33.0); MEAN CORPUSCULAR HGB CONC 32.6 g/dl (32.0-36.5); MEAN CORPUSCULAR VOLUME 89.3 fl (80.0-96.0); PLATELET COUNT, AUTOMATED 211 10^3/uL (150-450); RED BLOOD COUNT 4.47 10^6/uL (4.00-5.40); WHITE BLOOD COUNT 8.9 10^3/uL (4.0-10.0)
[2021-04-07 12:33] LABS: ALBUMIN 2.4 GM/DL (3.2-5.2); ALT/SGPT 24 U/L (12-78); BILIRUBIN,TOTAL 0.3 MG/DL (0.2-1.0); BLOOD UREA NITROGEN 43 MG/DL (7-18); CALCIUM LEVEL 9.1 MG/DL (8.5-10.1); CARBON DIOXIDE LEVEL 27 MEQ/L (21-32); CHLORIDE LEVEL 108 MEQ/L (98-107); CK-MB VALUE MASS 2.4 NG/ML (<3.6); CPK CREATINE PHOSPHOKINASE 98 U/L (26-192); CREATININE FOR GFR 3.04 MG/DL (0.55-1.30); FREE T4 0.98 NG/DL (0.76-1.46); GLOMERULAR FILTRATION RATE 16.7 (>51); GLUCOSE, FASTING 110 MG/DL (70-100); MAGNESIUM LEVEL 2.3 MG/DL (1.8-2.4); MB/CK RELATIVE INDEX 2.45 (< OR =4); PHOSPHORUS LEVEL 3.9 MG/DL (2.5-4.9); POTASSIUM SERUM 4.1 MEQ/L (3.5-5.1); SODIUM LEVEL 140 MEQ/L (136-145); TOTAL PROTEIN 6.6 GM/DL (6.4-8.2); TROPONIN I < 0.02 NG/ML (< 0.10)
== END ==
LOC: M LAB 11:02
PROVIDERS: ATTEND Family Medicine
DX: R55 Syncope and collapse (principal)

== ENCOUNTER → 2021-04-11 | Outpatient (CLI) | payer OTHER ==
--- NOTE | 2021-04-11 09:15 | REP ---
INDICATION: SYNCOPE AND COLLAPSE. COMPARISON: CT head without contrast, 05/13/2015. TECHNIQUE: Contiguous 5 mm thick axial projection images were obtained through the head. 2D coronal reconstructions were performed. FINDINGS: There is mild diffuse cerebral atrophy with concomitant ventriculomegaly. There is no evidence of acute intracranial hemorrhage or infarction. There are no abnormal intracranial masses or mass effects. There is calcific vascular disease of the intracranial portion of both internal carotid arteries and both vertebral arteries. The skull base and calvarium are unremarkable. The visualized extracranial soft tissues are unremarkable. IMPRESSION: 1. No evidence of acute intracranial pathology. 2. Mild cerebral atrophy. 3. Calcific vascular disease of the intracranial portion of both internal carotid arteries and both vertebral arteries. <Electronically signed by Lyle Mcgrath > 04/11/21 1355
== END ==
LOC: M RAD 08:50
PROVIDERS: ATTEND Family Medicine
DX: R55 Syncope and collapse (principal); G31.9 Degenerative disease of nervous system, unspecified; I65.23 Occlusion and stenosis of bilateral carotid arteries; I67.2 Cerebral atherosclerosis

== ENCOUNTER → 2021-04-14 | Outpatient (CLI) | payer OTHER ==
--- NOTE | 2021-04-14 11:36 | REP ---
INDICATION: Assess stenosis TECHNIQUE: Carotid ultrasonography was performed bilaterally FINDINGS: Right: CCA systolic: 83.9 centimeters/second CCA diastolic: 19.3 centimeters/second ICA systolic: 56.4 centimeters/second ICA diastolic: 18.8 centimeters/second ICA CCA ratio: 0.67 Left: CCA systolic: 66.3 centimeters/second CCA diastolic: 14.7 centimeters/second ICA systolic: 61.4 centimeters/second ICA diastolic: 16.7 centimeters/second ICA CCA ratio: 0.92 Vertebral artery: Right: Antegrade flow left: Antegrade flow Small amount of echogenic material is seen along the carotid arterial peacock. IMPRESSION: According to the SRU criteria there is less than 50% stenosis of the internal carotid artery bilaterally. This is secondary to primarily noncalcified plaque formation. <Electronically signed by Jeremy iLndsay > 04/14/21 0305
== END ==
LOC: M RAD 09:14
PROVIDERS: ATTEND Family Medicine
DX: R55 Syncope and collapse (principal); I65.23 Occlusion and stenosis of bilateral carotid arteries

== ENCOUNTER → 2021-05-02 | Outpatient (CLI) | payer OTHER ==
[~2021-05-02] MED LIST changes: +HYDR-3716 PO
--- NOTE | 2021-05-03 09:02 | ECHO ---
ECHOCARDIOGRAM DATE OF PROCEDURE: 05/02/2021 Age: 60 Gender: Female Height: 67 inches Weight: 275 pounds Body Surface Area: 2.32 m2 PATIENT LOCATION: Outpatient. REFERRING PHYSICIAN: Michele Albrecht DO INDICATION: Syncope and collapse. MEASUREMENTS: 2D Measurements: RV 3.7 cm LV 4.3 cm Septum 1.2 cm Posterior wall 1.2 cm Aortic root 3.5 cm Ascending aorta 3.8 cm LA - 4.3 cm LVEF 65% Doppler Measurements: AV - 1.31 m/s LVOT - 0.94 m/s MV-E 51, A 60, E:A ratio 0.9 Early mitral deceleration time 215 msec E Prime Medial 7.4, A Prime Medial 7.7, E Prime Medial 6.4 Average E/E Prime ratio 7.4/PCWP 11 mmHg PV 0.7 m/s Pulmonary artery acceleration time 120 msec PASP - 28 mmHg IVC could not be visualized COMMENTS: Normal sinus rhythm without interventricular conduction disturbance. Technically extremely challenging study in light of the patient's body habitus but some diagnostic useful information is still obtained. M-mode and 2-dimensional echocardiography was performed with pulse, continuous wave, color flow and tissue Doppler studies. Borderline to mild left ventricular hypertrophy with normal wall motion. Mildly dilated left atrium with Grade 1 LV diastolic dysfunction but currently normal estimated mean left atrial pressure. Normal heart chamber sizes and motion with currently normal pulmonary arterial pressure. IVC could not be visualized to estimate her central venous pressure. Normal aortic root diameter with slightly dilated ascending aorta. The details of valvular structures could not be well-visualized but there did not appear to any obvious abnormality. Doppler flow studies of valvular structures was within normal limits. No apparent intracardiac mass or pericardial effusion.
== END ==
LOC: M CARPUL 08:11
PROVIDERS: ATTEND Family Medicine
DX: R55 Syncope and collapse (principal)

== ENCOUNTER → 2021-06-05 | Outpatient (CLI) | payer OTHER ==
[~2021-06-05] MED LIST changes: -FLUO10CA16 PO; +FLUO10CA18 PO; +POTA-151 PO; -POTA20TA6 PO
== END ==
LOC: M RAD 11:02
PROVIDERS: ATTEND Internal Medicine Nephrology
DX: Z01.818 Encounter for other preprocedural examination (principal); N18.4 Chronic kidney disease, stage 4 (severe)

== ENCOUNTER → 2021-07-14 | Outpatient (REF) | payer OTHER, MEDICAID | LOC: M SFHCPLAZ 12:50 | PROVIDERS: ATTEND Family Medicine | DX: R09.89 Other specified symptoms and signs involving the circulatory and respiratory systems (principal) ==

== ENCOUNTER → 2021-07-14 | Outpatient (CLI) | payer OTHER ==
[2021-07-14 16:06] LABS: HEMOGLOBIN A1c 6.8 %
== END ==
LOC: M PLALAB 12:51
PROVIDERS: ATTEND Physician Assistant
DX: E11.65 Type 2 diabetes mellitus with hyperglycemia (principal); Z79.4 Long term (current) use of insulin; E89.0 Postprocedural hypothyroidism

== ENCOUNTER → 2021-08-31 | Outpatient (CLI) | payer OTHER | LOC: M PLAIMG 09:46 → M PLARAD 09:46 | PROVIDERS: ATTEND Family Medicine | DX: M65.322 Trigger finger, left index finger (principal) ==

== ENCOUNTER 2021-11-24 17:33 | Inpatient (IN) | payer OTHER ==
[~2021-11-24] VITALS: Ht 170.2 cm; Wt 112.4 kg
[~2021-11-24 17:33] MED LIST changes: -CETI-24 PO; -DULA4.5P SQ; -LEVO175T2 PO; -LEVO25TA5 PO; -METO1TAB7 PO; -OXYC-517 PO; -SODI325T9 PO
[2021-11-24 20:27] LABS: BASO # 0.1 10^3/uL (0.0-0.2); BASO % 0.5 % (0.0-1.0); EOS # 0.3 10^3/uL (0.0-0.5); EOS % 2.1 % (0.0-3.0); HEMATOCRIT 28.8 % (36.0-47.0); HEMOGLOBIN 9.7 g/dl (12.0-15.5); LYMPH # 1.5 10^3/uL (1.5-5.0); LYMPH % 11.5 % (24.0-44.0); MEAN CORPUSCULAR HEMOGLOBIN 29.9 pg (27.0-33.0); MEAN CORPUSCULAR HGB CONC 33.7 g/dl (32.0-36.5); MEAN CORPUSCULAR VOLUME 88.9 fl (80.0-96.0); MONO # 0.9 10^3/uL (0.0-0.8); NEUTROPHILS # 9.9 10^3/uL (1.5-8.5); NEUTROPHILS % 78.3 % (36.0-66.0); PLATELET COUNT, AUTOMATED 259 10^3/uL (150-450); RED BLOOD COUNT 3.24 10^6/uL (4.00-5.40); WHITE BLOOD COUNT 12.7 10^3/uL (4.0-10.0)
[2021-11-24 20:36] LABS: INR 0.92; PROTHROMBIN TIME 12.8 SECONDS (12.7-14.5)
[2021-11-24 20:37] LABS: PARTIAL THROMBOPLASTIN TIME 32.3 SECONDS (25.9-37.0)
[2021-11-24] MEDS ORDERED: tiZANidine 4 MG TAB PO SCH (21:00)
[2021-11-24] MEDS: INSULIN LISPRO (NovoLOG) PER UNIT SC SCH (21:00)
[2021-11-24 21:06] LABS: ALT/SGPT 22 U/L (12-78); BILIRUBIN,DIRECT < 0.1 MG/DL (0.0-0.2); BILIRUBIN,TOTAL 0.2 MG/DL (0.2-1.0); BLOOD UREA NITROGEN 100 MG/DL (7-18); CALCIUM LEVEL 9.3 MG/DL (8.8-10.2); CARBON DIOXIDE LEVEL 14 MEQ/L (21-32); CHLORIDE LEVEL 107 MEQ/L (98-107); CREATININE FOR GFR 9.06 MG/DL (0.55-1.30); FREE T4 1.09 NG/DL (0.76-1.46); GLOMERULAR FILTRATION RATE 4.7 (>45); GLUCOSE, FASTING 145 MG/DL (70-100); LIPASE 383 U/L (73-393); NT-PRO BNP 1058 PG/ML (<125); SODIUM LEVEL 137 MEQ/L (136-145); TOTAL PROTEIN 7.3 GM/DL (6.4-8.2)
[2021-11-24 21:34] LABS: RSV AMPLIFICATION NEGATIVE (NEGATIVE)
[2021-11-24] MEDS: NS 1,000 ML IV SCH (22:20)
[2021-11-24] MEDS ORDERED: HEPARIN SOD (PORCINE) 5000UNITS/ML 1ML VIAL/SYRINGE SC SCH (23:35)
[2021-11-24] MEDS ORDERED: ALBUTEROL SULFATE 2.5 MG/0.5 ML INH NEB SOLN NEB PRN (23:35)
[2021-11-24] MEDS ORDERED: TRANEXAMIC ACID 100 MG/ML 10ML VIAL NEB ONE (23:50)
[2021-11-24] MEDS ORDERED: METO1TAB7 PO (23:56)
[2021-11-24] MEDS ORDERED: AMLO1TAB25 PO (23:56)
[2021-11-24] MEDS ORDERED: LEVO175T2 PO (23:56)
[2021-11-24] MEDS ORDERED: CETI-24 PO (23:56)
[2021-11-24] MEDS ORDERED: FURO20TA2 PO (23:56)
[2021-11-24] MEDS ORDERED: DULA4.5P SQ (23:56)
[2021-11-25] MEDS ORDERED: HOME MED LIST COMPLETE! XX SCH
[2021-11-25 00:33] VITALS: BP 156/83
[2021-11-25 01:06] LABS: CREATININE,RANDOM URINE 92.8 MG/DL; TOTAL PROTEIN,RANDOM URINE 735.5 MG/DL (0.0-12.0)
[2021-11-25] MEDS ORDERED: DEXTROSE 50% 50 ML SYRINGE IV PRN (01:10)
[2021-11-25] MEDS ORDERED: GLUCAGON INJ 1MG VIAL SC PRN (01:10)
[2021-11-25] MEDS ORDERED: GLUCOSE 4GM CHEW TABLET PO PRN (01:10)
[2021-11-25] MEDS ORDERED: ALBUTEROL 90 MCG/ACT 8GM HFA INHALER INH PRN (01:10)
[2021-11-25] MEDS ORDERED: PILL CUTTER 1 EACH XX PRN (02:10)
[2021-11-25] MEDS ORDERED: ACETAMINOPHEN TAB 650MG DOSE (2X325MG) PO PRN (02:15)
[2021-11-25] MEDS: DULoxetine 30MG CAPSULE (CYMBALTA) PO SCH ×2 (02:24→19:58)
[2021-11-25] MEDS: LEVOTHYROXINE 150MCG TABLET (0.15MG) PO SCH (05:04)
[2021-11-25] MEDS: LEVOTHYROXINE 25MCG TABLET (0.025MG) PO SCH (05:04)
[2021-11-25 06:00] VITALS: BP 153/84
[2021-11-25] MEDS: INSULIN LISPRO (NovoLOG) PER UNIT SC SCH ×4 (07:30→20:00)
[2021-11-25 08:05] LABS: BASO % 0.4 % (0.0-1.0); EOS # 0.2 10^3/uL (0.0-0.5); EOS % 1.7 % (0.0-3.0); HEMOGLOBIN 7.8 g/dl (12.0-15.5); LYMPH # 1.1 10^3/uL (1.5-5.0); LYMPH % 11.8 % (24.0-44.0); MEAN CORPUSCULAR HEMOGLOBIN 30.5 pg (27.0-33.0); MEAN CORPUSCULAR HGB CONC 33.9 g/dl (32.0-36.5); MEAN CORPUSCULAR VOLUME 89.8 fl (80.0-96.0); MONO # 0.7 10^3/uL (0.0-0.8); MONO % 7.8 % (2.0-8.0); NEUTROPHILS # 7.4 10^3/uL (1.5-8.5); NEUTROPHILS % 77.9 % (36.0-66.0); PLATELET COUNT, AUTOMATED 191 10^3/uL (150-450); RED BLOOD COUNT 2.56 10^6/uL (4.00-5.40); WHITE BLOOD COUNT 9.5 10^3/uL (4.0-10.0)
[2021-11-25 08:23] LABS: ALBUMIN 2.4 GM/DL (3.2-5.2); ALT/SGPT 16 U/L (12-78); BILIRUBIN,TOTAL 0.2 MG/DL (0.2-1.0); BLOOD UREA NITROGEN 96 MG/DL (7-18); CALCIUM LEVEL 8.8 MG/DL (8.8-10.2); CARBON DIOXIDE LEVEL 17 MEQ/L (21-32); CHLORIDE LEVEL 112 MEQ/L (98-107); CREATININE FOR GFR 8.91 MG/DL (0.55-1.30); GLOMERULAR FILTRATION RATE 4.8 (>45); GLUCOSE, FASTING 116 MG/DL (70-100); POTASSIUM SERUM 4.5 MEQ/L (3.5-5.1); SODIUM LEVEL 142 MEQ/L (136-145); TOTAL PROTEIN 6.2 GM/DL (6.4-8.2)
[2021-11-25] MEDS ORDERED: oxyCODONE 5MG TAB PO ONE (08:40)
[2021-11-25] MEDS: CINACALCET 30 MG TAB (SENSIPAR) PO SCH (08:54)
[2021-11-25] MEDS ORDERED: CETIRIZINE (ZyrTEC) 10 MG TAB PO SCH (09:00)
[2021-11-25] MEDS ORDERED: ASPIRIN 81MG ENTERIC TABLET PO SCH (09:00)
[2021-11-25] MEDS: NS 1,000 ML IV SCH (09:51)
[2021-11-25 10:23] LABS: APPEARANCE, URINE HAZY (CLEAR); BACTERIA, URINE AUTO 1+ (NEGATIVE); BILIRUBIN, URINE AUTO NEGATIVE (NEGATIVE); BLOOD, URINE BLOOD 1+ (NEGATIVE); COLOR, URINE STRAW (YELLOW); GLUCOSE, URINE (UA) AUTO 2+ mg/dL (NEGATIVE); GRANULAR CAST, URINE AUTO 1 /LPF; KETONE, URINE AUTO NEGATIVE (NEGATIVE); LEUKOCYTE ESTERASE, URINE AUTO NEGATIVE (NEGATIVE); NITRITE, URINE AUTO NEGATIVE (NEGATIVE); PROTEIN, URINE AUTO 3+ mg/dL (NEGATIVE); RBC, URINE AUTO 0 /HPF (0-3); SPECIFIC GRAVITY URINE AUTO 1.011 (1.002-1.035); SQUAMOUS EPITHELIAL CELL UR AU 1 /HPF (0-6); UROBILINOGEN, URINE AUTO 0.2 mg/dL (0.0-2.0); WBC, URINE AUTO 2 /HPF (0-3)
[2021-11-25 11:26] LABS: CREATININE, URINE 56.6 MG/DL; CREATININE,RANDOM URINE 56.6 MG/DL; MAU/CREAT RATIO 5335.6 MCG/MG (0.0-30.0)
[2021-11-25 11:27] LABS: TOTAL PROTEIN,RANDOM URINE 464.4 MG/DL (0.0-12.0)
[2021-11-25 12:21] LABS: HEMATOCRIT 25.6 % (36.0-47.0); HEMOGLOBIN 8.6 g/dl (12.0-15.5)
[2021-11-25] MEDS: SODIUM BICARBONATE 325 MG TAB PO SCH ×2 (12:40→19:58)
[2021-11-25 14:00] VITALS: BP 136/84
[2021-11-25] MEDS: tiZANidine 4 MG TAB PO SCH (19:57)
[2021-11-25] MEDS: METOPROLOL SUCC (TopROL XL) 50MG **XL** TAB PO SCH (20:00)
[2021-11-25] MEDS: oxyCODONE 5MG TAB PO PRN (20:00)
[2021-11-25] MEDS: LEVEMIR (INSULIN DETEMIR) 1 UNITS/0.01ML SC SCH (20:02)
[2021-11-25 21:30] VITALS: BP 138/82
[2021-11-26] MEDS: LEVOTHYROXINE 25MCG TABLET (0.025MG) PO SCH (05:05)
[2021-11-26] MEDS: LEVOTHYROXINE 150MCG TABLET (0.15MG) PO SCH (05:05)
[2021-11-26 05:56] VITALS: BP 126/72
[2021-11-26 06:24] LABS: HEMOGLOBIN 7.7 g/dl (12.0-15.5); MEAN CORPUSCULAR HEMOGLOBIN 30.3 pg (27.0-33.0); MEAN CORPUSCULAR HGB CONC 33.5 g/dl (32.0-36.5); MEAN CORPUSCULAR VOLUME 90.6 fl (80.0-96.0); PLATELET COUNT, AUTOMATED 170 10^3/uL (150-450); RED BLOOD COUNT 2.54 10^6/uL (4.00-5.40); WHITE BLOOD COUNT 8.4 10^3/uL (4.0-10.0)
[2021-11-26 07:13] LABS: CALCIUM LEVEL 8.2 MG/DL (8.8-10.2); CREATININE FOR GFR 8.87 MG/DL (0.55-1.30); GLOMERULAR FILTRATION RATE 4.9 (>45); PERCENT SATURATION 20.6 % (13.2-45.0); PHOSPHORUS LEVEL 8.7 MG/DL (2.5-4.9); POTASSIUM SERUM 4.3 MEQ/L (3.5-5.1)
[2021-11-26] MEDS: INSULIN LISPRO (NovoLOG) PER UNIT SC SCH ×3 (07:30→17:11)
[2021-11-26] MEDS: SODIUM BICARBONATE 325 MG TAB PO SCH ×2 (08:02→20:47)
[2021-11-26] MEDS: CINACALCET 30 MG TAB (SENSIPAR) PO SCH (08:02)
[2021-11-26] MEDS ORDERED: DARBEPOETIN 100 MCG/0.5 ML *DIALYSIS* SYRINGE (J0882) IV SCH (12:05)
[2021-11-26 14:00] VITALS: BP 146/76
[2021-11-26] MEDS: oxyCODONE 5MG TAB PO PRN ×2 (16:21→23:13)
[2021-11-26 20:40] VITALS: BP 149/73
[2021-11-26] MEDS: tiZANidine 4 MG TAB PO SCH (20:47)
[2021-11-26] MEDS: DULoxetine 30MG CAPSULE (CYMBALTA) PO SCH (20:47)
[2021-11-26] MEDS: LEVEMIR (INSULIN DETEMIR) 1 UNITS/0.01ML SC SCH (20:48)
[2021-11-26] MEDS: METOPROLOL SUCC (TopROL XL) 50MG **XL** TAB PO SCH (20:48)
[2021-11-27 04:45] VITALS: BP 148/63
[2021-11-27] MEDS: LEVOTHYROXINE 150MCG TABLET (0.15MG) PO SCH (05:07)
[2021-11-27] MEDS: LEVOTHYROXINE 25MCG TABLET (0.025MG) PO SCH (05:07)
[2021-11-27] MEDS ORDERED: SODIUM CHLORIDE 0.9% 1000ML IV PRN (06:00)
[2021-11-27 06:29] LABS: HEMOGLOBIN 7.8 g/dl (12.0-15.5); MEAN CORPUSCULAR HEMOGLOBIN 29.2 pg (27.0-33.0); MEAN CORPUSCULAR HGB CONC 32.5 g/dl (32.0-36.5); MEAN CORPUSCULAR VOLUME 89.9 fl (80.0-96.0); PLATELET COUNT, AUTOMATED 182 10^3/uL (150-450); RED BLOOD COUNT 2.67 10^6/uL (4.00-5.40); WHITE BLOOD COUNT 8.4 10^3/uL (4.0-10.0)
[2021-11-27 06:47] LABS: TOTAL 25(OH) VITAMIN D 17.9 NG/ML (30.0-100.0)
[2021-11-27 06:48] LABS: PTH INTACT 499.4 PG/ML (18.5-88.0)
[2021-11-27 06:54] LABS: CALCIUM LEVEL 7.3 MG/DL (8.8-10.2); CREATININE FOR GFR 8.95 MG/DL (0.55-1.30); GLOMERULAR FILTRATION RATE 4.8 (>45); POTASSIUM SERUM 4.1 MEQ/L (3.5-5.1)
[2021-11-27 07:07] LABS: HEPATITIS B SURFACE ANTIGEN NEGATIVE (NEGATIVE)
[2021-11-27 07:18] LABS: HEPATITIS B CORE ANTIBODY IGM NEGATIVE (NEGATIVE); HEPATITIS B SURFACE ANTIBODY NEGATIVE (POSITIVE); HEPATITIS B SURFACE ANTIGEN NEGATIVE (NEGATIVE); HEPATITIS C VIRUS ABY INDEX 0.1 INDEX (<0.8)
[2021-11-27] MEDS: INSULIN LISPRO (NovoLOG) PER UNIT SC SCH ×3 (07:30→17:22)
[2021-11-27 07:34] LABS: HEPATITIS B CORE ANTIBODY IGM NEGATIVE (NEGATIVE); HEPATITIS C VIRUS ABY INDEX 0.1 INDEX (<0.8)
[2021-11-27] MEDS: CINACALCET 30 MG TAB (SENSIPAR) PO SCH (09:30)
[2021-11-27] MEDS: SODIUM BICARBONATE 325 MG TAB PO SCH ×2 (09:31→20:56)
[2021-11-27 11:26] VITALS: BP 152/80
[2021-11-27] MEDS: VITAMIN D 1,000 INTERNATIONAL UNITS TABLET PO SCH (11:37)
[2021-11-27 11:44] VITALS: BP 154/80
[2021-11-27 13:00] VITALS: BP 156/81
[2021-11-27] MEDS ORDERED: OXYC-517 PO (13:42)
[2021-11-27] MEDS ORDERED: SODI325T9 PO (13:42)
[2021-11-27] MEDS ORDERED: LEVO25TA5 PO ×2 (13:42→14:50)
[2021-11-27] MEDS ORDERED: AMLO1TAB25 PO (14:05)
[2021-11-27 14:11] LABS: ANTI DOUBLE STRAND-DNA AB 1 IU/mL (0-9); ANTINUCLEAR ANTIBODIES DIRECT Positive (Negative); RNP ANTIBODIES 0.6 AI (0.0-0.9); SJOGREN'S ANTI SS-A <0.2 AI (0.0-0.9); SJOGREN'S ANTI SS-B <0.2 AI (0.0-0.9); SMITH ANTIBODIES <0.2 AI (0.0-0.9)
[2021-11-27 14:34] VITALS: BP 154/78
[2021-11-27] MEDS ORDERED: LEVO150T7 PO (14:50)
[2021-11-27] MEDS: tiZANidine 4 MG TAB PO SCH (20:56)
[2021-11-27] MEDS: DULoxetine 30MG CAPSULE (CYMBALTA) PO SCH (20:57)
[2021-11-27] MEDS: METOPROLOL SUCC (TopROL XL) 50MG **XL** TAB PO SCH (20:57)
[2021-11-27] MEDS: LEVEMIR (INSULIN DETEMIR) 1 UNITS/0.01ML SC SCH (20:58)
[2021-11-27] MEDS: oxyCODONE 5MG TAB PO PRN (20:58)
[2021-11-27 21:24] VITALS: BP 166/93
[2021-11-28 06:00] VITALS: BP 160/87
[2021-11-28] MEDS: CINACALCET 30 MG TAB (SENSIPAR) PO SCH (06:04)
[2021-11-28] MEDS: VITAMIN D 1,000 INTERNATIONAL UNITS TABLET PO SCH (06:04)
[2021-11-28] MEDS: LEVOTHYROXINE 25MCG TABLET (0.025MG) PO SCH (06:04)
[2021-11-28] MEDS: LEVOTHYROXINE 150MCG TABLET (0.15MG) PO SCH (06:04)
[2021-11-28] MEDS: SODIUM BICARBONATE 325 MG TAB PO SCH ×2 (06:04→21:24)
[2021-11-28] MEDS: INSULIN LISPRO (NovoLOG) PER UNIT SC SCH ×3 (06:08→17:30)
[2021-11-28 06:30] LABS: HEMATOCRIT 25.9 % (36.0-47.0); HEMOGLOBIN 8.5 g/dl (12.0-15.5); MEAN CORPUSCULAR HEMOGLOBIN 29.4 pg (27.0-33.0); MEAN CORPUSCULAR HGB CONC 32.8 g/dl (32.0-36.5); MEAN CORPUSCULAR VOLUME 89.6 fl (80.0-96.0); PLATELET COUNT, AUTOMATED 191 10^3/uL (150-450); RED BLOOD COUNT 2.89 10^6/uL (4.00-5.40); WHITE BLOOD COUNT 8.3 10^3/uL (4.0-10.0)
[2021-11-28] MEDS: oxyCODONE 5MG TAB PO PRN ×2 (06:40→21:29)
[2021-11-28] MEDS ORDERED: DEXTROSE 50% 50 ML SYRINGE IV STA (06:45)
[2021-11-28 06:55] LABS: BLOOD UREA NITROGEN 79 MG/DL (7-18); CALCIUM LEVEL 8.2 MG/DL (8.8-10.2); CARBON DIOXIDE LEVEL 20 MEQ/L (21-32); CHLORIDE LEVEL 112 MEQ/L (98-107); CREATININE FOR GFR 8.58 MG/DL (0.55-1.30); GLUCOSE, FASTING 62 MG/DL (70-100); POTASSIUM SERUM 4.2 MEQ/L (3.5-5.1); SODIUM LEVEL 143 MEQ/L (136-145)
[2021-11-28 11:29] LABS: ALBUMIN 3.01 GM/DL (3.29-5.55); ALBUMIN % 48.5 % (55.8-66.1); ALPHA-1-GLOBULIN % 6.1 % (2.9-4.9); ALPHA-1-GLOBULINS 0.38 GM/DL (0.17-0.41); ALPHA-2-GLOBULINS 1.01 GM/DL (0.42-0.99); ALPHA-2-GLOBULINS % 16.3 % (7.1-11.8); BETA-1-GLOBULINS 0.42 GM/DL (0.28-0.60); BETA-1-GLOBULINS % 6.7 % (4.7-7.2); BETA-2-GLOBULINS 0.53 GM/DL (0.19-0.55); BETA-2-GLOBULINS % 8.5 % (3.2-6.5); GAMMA GLOBULIN % 13.9 % (11.1-18.8); GAMMA GLOBULINS 0.86 GM/DL (0.65-1.58)
[2021-11-28 11:51] LABS: HEPATITIS B SURFACE ANTIBODY NEGATIVE (POSITIVE)
[2021-11-28 12:01] LABS: HEPATITIS B SURFACE ANTIGEN NEGATIVE (NEGATIVE)
[2021-11-28 12:29] LABS: HEPATITIS C VIRUS ABY INDEX 0.1 INDEX (<0.8)
[2021-11-28 12:30] LABS: HEPATITIS B CORE ANTIBODY IGM NEGATIVE (NEGATIVE)
[2021-11-28] MEDS: tiZANidine 4 MG TAB PO SCH (21:24)
[2021-11-28] MEDS: DULoxetine 30MG CAPSULE (CYMBALTA) PO SCH (21:25)
[2021-11-28] MEDS: METOPROLOL SUCC (TopROL XL) 50MG **XL** TAB PO SCH (21:28)
[2021-11-28] MEDS: LEVEMIR (INSULIN DETEMIR) 1 UNITS/0.01ML SC SCH (21:37)
[2021-11-28 22:00] VITALS: BP 168/91
[2021-11-29] MEDS: VITAMIN D 1,000 INTERNATIONAL UNITS TABLET PO SCH (05:49)
[2021-11-29] MEDS: SODIUM BICARBONATE 325 MG TAB PO SCH ×2 (05:49→20:44)
[2021-11-29] MEDS: LEVOTHYROXINE 25MCG TABLET (0.025MG) PO SCH (05:50)
[2021-11-29] MEDS: CINACALCET 30 MG TAB (SENSIPAR) PO SCH (05:50)
[2021-11-29] MEDS: LEVOTHYROXINE 150MCG TABLET (0.15MG) PO SCH (05:50)
[2021-11-29] MEDS: oxyCODONE 5MG TAB PO PRN ×3 (05:51→22:32)
[2021-11-29 06:00] VITALS: BP 154/86
[2021-11-29] MEDS ORDERED: SODIUM CHLORIDE 0.9% 1000ML IV PRN (06:00)
[2021-11-29 06:32] LABS: HEMATOCRIT 25.8 % (36.0-47.0); HEMOGLOBIN 8.6 g/dl (12.0-15.5); MEAN CORPUSCULAR HEMOGLOBIN 29.8 pg (27.0-33.0); MEAN CORPUSCULAR HGB CONC 33.3 g/dl (32.0-36.5); MEAN CORPUSCULAR VOLUME 89.3 fl (80.0-96.0); PLATELET COUNT, AUTOMATED 194 10^3/uL (150-450); RED BLOOD COUNT 2.89 10^6/uL (4.00-5.40); WHITE BLOOD COUNT 9.3 10^3/uL (4.0-10.0)
[2021-11-29 07:27] LABS: CALCIUM LEVEL 7.5 MG/DL (8.8-10.2); CREATININE FOR GFR 8.85 MG/DL (0.55-1.30); GLOMERULAR FILTRATION RATE 4.9 (>45); POTASSIUM SERUM 4.1 MEQ/L (3.5-5.1)
[2021-11-29] MEDS: INSULIN LISPRO (NovoLOG) PER UNIT SC SCH ×3 (07:30→16:46)
[2021-11-29] MEDS: IRON SUCROSE 100MG 5ML VIAL (J1756 PER 1MG) IV SCH (09:30)
[2021-11-29 14:00] VITALS: BP 146/80
[2021-11-29 19:46] VITALS: BP 146/81
[2021-11-29] MEDS: LEVEMIR (INSULIN DETEMIR) 1 UNITS/0.01ML SC SCH (20:44)
[2021-11-29] MEDS: tiZANidine 4 MG TAB PO SCH (20:45)
[2021-11-29] MEDS: DULoxetine 30MG CAPSULE (CYMBALTA) PO SCH (20:45)
[2021-11-29] MEDS: METOPROLOL SUCC (TopROL XL) 50MG **XL** TAB PO SCH (20:46)
[2021-11-30 05:46] VITALS: BP 153/50
[2021-11-30] MEDS ORDERED: SODIUM CHLORIDE 0.9% 1000ML IV PRN (06:00)
[2021-11-30 06:02] LABS: HEMATOCRIT 25.3 % (36.0-47.0); HEMOGLOBIN 8.3 g/dl (12.0-15.5); MEAN CORPUSCULAR HEMOGLOBIN 29.4 pg (27.0-33.0); MEAN CORPUSCULAR HGB CONC 32.8 g/dl (32.0-36.5); MEAN CORPUSCULAR VOLUME 89.7 fl (80.0-96.0); PLATELET COUNT, AUTOMATED 183 10^3/uL (150-450); RED BLOOD COUNT 2.82 10^6/uL (4.00-5.40); WHITE BLOOD COUNT 8.1 10^3/uL (4.0-10.0)
[2021-11-30] MEDS: VITAMIN D 1,000 INTERNATIONAL UNITS TABLET PO SCH (06:08)
[2021-11-30] MEDS: LEVOTHYROXINE 150MCG TABLET (0.15MG) PO SCH (06:08)
[2021-11-30] MEDS: CINACALCET 30 MG TAB (SENSIPAR) PO SCH (06:08)
[2021-11-30] MEDS: LEVOTHYROXINE 25MCG TABLET (0.025MG) PO SCH (06:08)
[2021-11-30 06:27] LABS: CALCIUM LEVEL 8.2 MG/DL (8.8-10.2); CREATININE FOR GFR 6.72 MG/DL (0.55-1.30); GLOMERULAR FILTRATION RATE 6.7 (>45); POTASSIUM SERUM 3.6 MEQ/L (3.5-5.1)
[2021-11-30] MEDS: SODIUM BICARBONATE 325 MG TAB PO SCH ×2 (06:48→20:43)
[2021-11-30] MEDS: INSULIN LISPRO (NovoLOG) PER UNIT SC SCH ×3 (07:30→17:41)
[2021-11-30] MEDS: IRON SUCROSE 100MG 5ML VIAL (J1756 PER 1MG) IV SCH (11:11)
[2021-11-30 14:00] VITALS: BP 167/84
[2021-11-30] MEDS: METOPROLOL SUCC (TopROL XL) 50MG **XL** TAB PO SCH (20:44)
[2021-11-30] MEDS: DULoxetine 30MG CAPSULE (CYMBALTA) PO SCH (20:44)
[2021-11-30] MEDS: tiZANidine 4 MG TAB PO SCH (20:44)
[2021-11-30] MEDS: LEVEMIR (INSULIN DETEMIR) 1 UNITS/0.01ML SC SCH (21:00)
[2021-11-30 21:32] VITALS: BP 171/63
[2021-12-01 01:58] VITALS: BP 156/83
[2021-12-01 05:11] VITALS: BP 160/90
[2021-12-01] MEDS: VITAMIN D 1,000 INTERNATIONAL UNITS TABLET PO SCH (05:17)
[2021-12-01] MEDS: LEVOTHYROXINE 150MCG TABLET (0.15MG) PO SCH (05:17)
[2021-12-01] MEDS: CINACALCET 30 MG TAB (SENSIPAR) PO SCH (05:17)
[2021-12-01] MEDS: LEVOTHYROXINE 25MCG TABLET (0.025MG) PO SCH (05:17)
[2021-12-01] MEDS: SODIUM BICARBONATE 325 MG TAB PO SCH (05:18)
[2021-12-01] MEDS ORDERED: SODIUM CHLORIDE 0.9% 1000ML IV PRN (06:00)
[2021-12-01 06:05] LABS: HEMATOCRIT 25.4 % (36.0-47.0); HEMOGLOBIN 8.5 g/dl (12.0-15.5); MEAN CORPUSCULAR HEMOGLOBIN 30.4 pg (27.0-33.0); MEAN CORPUSCULAR HGB CONC 33.5 g/dl (32.0-36.5); MEAN CORPUSCULAR VOLUME 90.7 fl (80.0-96.0); PLATELET COUNT, AUTOMATED 177 10^3/uL (150-450); WHITE BLOOD COUNT 8.1 10^3/uL (4.0-10.0)
[2021-12-01 06:38] LABS: CREATININE FOR GFR 5.45 MG/DL (0.55-1.30); GLOMERULAR FILTRATION RATE 8.5 (>45); POTASSIUM SERUM 3.6 MEQ/L (3.5-5.1)
[2021-12-01] MEDS: INSULIN LISPRO (NovoLOG) PER UNIT SC SCH ×2 (08:48→11:24)
[2021-12-01] MEDS ORDERED: LOSARTAN 25 MG TAB PO SCH (09:00)
[2021-12-01] MEDS ORDERED: VITAD1000T PO (09:47)
[2021-12-01] MEDS ORDERED: LOSA50TA28 PO (10:02)
[2021-12-01 10:08] VITALS: BP 181/86
[2021-12-01] MEDS: IRON SUCROSE 100MG 5ML VIAL (J1756 PER 1MG) IV SCH (11:17)
[2021-12-01] MEDS ORDERED: OXYC-517 PO (13:41)
[2021-12-02] MEDS ORDERED: METO1TAB7 PO (12:12)
== END 2021-12-01 15:28 | disposition home or self-care (01) | DRG 470 ==
LOC: M ED 17:33 → M ED INP 23:35 → M MSPAV 11-25 00:42
PROVIDERS: ADMIT Internal Medicine; ATTEND Internal Medicine Nephrology
PROC: 30233N1 Transfusion of Nonautologous Red Blood Cells into Peripheral Vein, Percutaneous Approach (ICD-10-PCS; principal; 2021-11-27)
PROC: 5A1D70Z Performance of Urinary Filtration, Intermittent, Less than 6 Hours Per Day (ICD-10-PCS; 2021-12-01)
DX: N18.6 End stage renal disease (principal); I12.0 Hypertensive chronic kidney disease with stage 5 chronic kidney disease or end stage renal disease; E87.2 Acidosis; E11.22 Type 2 diabetes mellitus with diabetic chronic kidney disease; I27.81 Cor pulmonale (chronic); R04.2 Hemoptysis; N25.81 Secondary hyperparathyroidism of renal origin; E83.39 Other disorders of phosphorus metabolism; E66.01 Morbid (severe) obesity due to excess calories; E87.5 Hyperkalemia; Z68.41 Body mass index [BMI] 40.0-44.9, adult; Z79.82 Long term (current) use of aspirin; Z79.4 Long term (current) use of insulin; Z79.899 Other long term (current) drug therapy; Z88.1 Allergy status to other antibiotic agents; Z88.2 Allergy status to sulfonamides; Z88.5 Allergy status to narcotic agent; Z88.8 Allergy status to other drugs, medicaments and biological substances; F17.200 Nicotine dependence, unspecified, uncomplicated; Z90.49 Acquired absence of other specified parts of digestive tract; Z90.79 Acquired absence of other genital organ(s); Z20.822 Contact with and (suspected) exposure to COVID-19; R91.8 Other nonspecific abnormal finding of lung field; R80.9 Proteinuria, unspecified; D63.1 Anemia in chronic kidney disease; R07.89 Other chest pain; F32.A Depression, unspecified; E03.9 Hypothyroidism, unspecified; J45.909 Unspecified asthma, uncomplicated; I25.10 Atherosclerotic heart disease of native coronary artery without angina pectoris; I35.9 Nonrheumatic aortic valve disorder, unspecified; Z99.2 Dependence on renal dialysis; N17.9 Acute kidney failure, unspecified

== ENCOUNTER → 2021-11-24 | Outpatient (CLI) | payer OTHER ==
[~2021-11-24] MED LIST changes: +CETI-24 PO; +DULA4.5P SQ; +LEVO175T2 PO; +LEVO25TA5 PO; +METO1TAB7 PO; +OXYC-517 PO; +SODI325T9 PO
[2021-11-24 15:29] LABS: BASO % 0.3 % (0.0-1.0); EOS # 0.2 10^3/uL (0.0-0.5); EOS % 1.9 % (0.0-3.0); HEMATOCRIT 30.2 % (36.0-47.0); LYMPH # 1.2 10^3/uL (1.5-5.0); LYMPH % 10.7 % (24.0-44.0); MEAN CORPUSCULAR HGB CONC 33.1 g/dl (32.0-36.5); MEAN CORPUSCULAR VOLUME 90.7 fl (80.0-96.0); MONO # 0.9 10^3/uL (0.0-0.8); NEUTROPHILS % 78.3 % (36.0-66.0); PLATELET COUNT, AUTOMATED 245 10^3/uL (150-450); RED BLOOD COUNT 3.33 10^6/uL (4.00-5.40); WHITE BLOOD COUNT 11.5 10^3/uL (4.0-10.0)
[2021-11-24 15:46] LABS: CALCIUM LEVEL 9.8 MG/DL (8.8-10.2); CREATININE FOR GFR 8.97 MG/DL (0.55-1.30); GLOMERULAR FILTRATION RATE 4.8 (>45); POTASSIUM SERUM 5.1 MEQ/L (3.5-5.1)
[2021-11-24 16:07] LABS: HEMOGLOBIN A1c 5.4 %
== END ==
LOC: M PLALAB 12:06
PROVIDERS: ATTEND Student in an Organized Health Care Education/Training Program
DX: R04.2 Hemoptysis (principal); E11.21 Type 2 diabetes mellitus with diabetic nephropathy

== ENCOUNTER → 2021-11-24 | Outpatient (CLI) | payer OTHER | LOC: M PLALAB 12:08 | PROVIDERS: ATTEND Physician Assistant | DX: E89.0 Postprocedural hypothyroidism (principal) ==

== ENCOUNTER → 2021-12-15 | Outpatient (CLI) | payer OTHER ==
[~2021-12-15] MED LIST changes: +CETI-24 PO; +DULA4.5P SQ; +LEVO175T2 PO; +LEVO25TA5 PO; +LOSA50TA28 PO; +METO1TAB7 PO; +OXYC-517 PO; +SODI325T9 PO; +VITAD1000T PO
[2021-12-15 13:42] LABS: HEMOGLOBIN A1c 5.2 %
[2021-12-15 13:56] LABS: CHOLESTEROL LEVEL 291 MG/DL (<200); CHOLESTEROL RISK RATIO 7.657 (<5); HDL CHOLESTEROL 38 MG/DL (>40); NON-HDL-C 253 MG/DL; TRIGLYCERIDES LEVEL 519 MG/DL (<150)
== END ==
LOC: M PLALAB 11:46
PROVIDERS: ATTEND Student in an Organized Health Care Education/Training Program
DX: K75.81 Nonalcoholic steatohepatitis (NASH) (principal); E11.29 Type 2 diabetes mellitus with other diabetic kidney complication

== ENCOUNTER → 2022-01-02 | Outpatient (CLI) | payer OTHER ==
[2022-01-02 17:13] LABS: HEMATOCRIT 31.2 % (36.0-47.0); HEMOGLOBIN 10.7 g/dl (12.0-15.5); MEAN CORPUSCULAR HEMOGLOBIN 30.9 pg (27.0-33.0); MEAN CORPUSCULAR HGB CONC 34.3 g/dl (32.0-36.5); MEAN CORPUSCULAR VOLUME 90.2 fl (80.0-96.0); PLATELET COUNT, AUTOMATED 214 10^3/uL (150-450); RED BLOOD COUNT 3.46 10^6/uL (4.00-5.40); WHITE BLOOD COUNT 8.3 10^3/uL (4.0-10.0)
[2022-01-02 17:36] LABS: INR 0.81; PROTHROMBIN TIME 11.6 SECONDS (12.7-14.5)
[2022-01-02 17:37] LABS: PARTIAL THROMBOPLASTIN TIME 40.1 SECONDS (25.9-37.0)
[2022-01-02 18:03] LABS: CALCIUM LEVEL 9.2 MG/DL (8.8-10.2); CREATININE FOR GFR 4.84 MG/DL (0.55-1.30); GLOMERULAR FILTRATION RATE 9.8 (>45); POTASSIUM SERUM 3.2 MEQ/L (3.5-5.1)
== END ==
LOC: M PLALAB 15:05
PROVIDERS: ATTEND Student in an Organized Health Care Education/Training Program
DX: Z01.818 Encounter for other preprocedural examination (principal)

== ENCOUNTER → 2022-03-23 | Outpatient (CLI) | payer OTHER | LOC: M PLAIMG 10:51 | PROVIDERS: ATTEND Nurse Practitioner Family | DX: R06.00 Dyspnea, unspecified (principal); Z95.828 Presence of other vascular implants and grafts ==

== ENCOUNTER 2022-04-09 12:03 | Emergency (ER) | payer OTHER ==
[~2022-04-09] VITALS: Ht 172.7 cm; Wt 106.4 kg
[2022-04-09 17:07] LABS: BASO # 0.1 10^3/uL (0.0-0.2); BASO % 0.5 % (0.0-1.0); EOS # 0.2 10^3/uL (0.0-0.5); EOS % 1.7 % (0.0-3.0); HEMATOCRIT 27.7 % (36.0-47.0); HEMOGLOBIN 8.8 g/dl (12.0-15.5); LYMPH # 0.9 10^3/uL (1.5-5.0); LYMPH % 9.9 % (24.0-44.0); MEAN CORPUSCULAR HEMOGLOBIN 29.3 pg (27.0-33.0); MEAN CORPUSCULAR HGB CONC 31.8 g/dl (32.0-36.5); MEAN CORPUSCULAR VOLUME 92.3 fl (80.0-96.0); MONO # 0.7 10^3/uL (0.0-0.8); NEUTROPHILS # 7.3 10^3/uL (1.5-8.5); NEUTROPHILS % 79.5 % (36.0-66.0); PLATELET COUNT, AUTOMATED 188 10^3/uL (150-450); WHITE BLOOD COUNT 9.3 10^3/uL (4.0-10.0)
[2022-04-09] MEDS ORDERED: methylPREDNISolone 125MG 2ML VIAL IV ONE (17:20)
[2022-04-09] MEDS: COMBIVENT RESPIMAT 100-20MCG INHALER 4GM INH SCH ×3 (17:46→18:52)
[2022-04-09 17:50] LABS: INR 0.91; PROTHROMBIN TIME 12.4 SECONDS (12.5-14.5)
[2022-04-09 18:01] LABS: ALBUMIN 3.1 GM/DL (3.2-5.2); BILIRUBIN,DIRECT 0.1 MG/DL (0.0-0.2); BILIRUBIN,TOTAL 0.5 MG/DL (0.2-1.0); CALCIUM LEVEL 11.1 MG/DL (8.8-10.2); CREATININE FOR GFR 8.05 MG/DL (0.55-1.30); GLOMERULAR FILTRATION RATE 5.4 (>45); POTASSIUM SERUM 5.4 MEQ/L (3.5-5.1); THYROID STIMULATING HORMONE 0.306 uIU/ML (0.358-3.740); THYROXINE (T4) 12.6 UG/DL (4.5-12.0); TOTAL PROTEIN 7.8 GM/DL (6.4-8.2)
[2022-04-09] MEDS ORDERED: ISOVUE-370 76% 100ML VIAL As Ordered ONE (18:13)
[2022-04-09 18:17] LABS: CK-MB VALUE MASS 1.5 NG/ML (<3.6); MB/CK RELATIVE INDEX 3.49 (< OR =4)
[2022-04-09 21:01] LABS: CK-MB VALUE MASS 1.6 NG/ML (<3.6); MB/CK RELATIVE INDEX 5.16 (< OR =4)
[2022-04-09 21:49] VITALS: BP 198/92
== END 2022-04-09 21:50 | disposition home or self-care (01) ==
LOC: M ED 12:03
DX: R06.02 Shortness of breath (principal); R91.8 Other nonspecific abnormal finding of lung field; E11.9 Type 2 diabetes mellitus without complications; I10 Essential (primary) hypertension; J45.909 Unspecified asthma, uncomplicated; E78.5 Hyperlipidemia, unspecified; N18.6 End stage renal disease; Z90.5 Acquired absence of kidney; Z99.2 Dependence on renal dialysis; Z90.49 Acquired absence of other specified parts of digestive tract; Z90.710 Acquired absence of both cervix and uterus; Z88.1 Allergy status to other antibiotic agents; Z88.2 Allergy status to sulfonamides; Z88.5 Allergy status to narcotic agent; Z88.6 Allergy status to analgesic agent; Z88.8 Allergy status to other drugs, medicaments and biological substances; Z79.51 Long term (current) use of inhaled steroids; Z79.4 Long term (current) use of insulin; Z79.890 Hormone replacement therapy; Z79.899 Other long term (current) drug therapy
CPT/HCPCS: 36415; 71045; 71275; 80048; 80076; 82550; 82553; 82803; 83880; 84436; 84443; 85025; 85610; 87486; 87581; 87633; 87798; 93005; 94640; 99284; J2930; Q9967

== ENCOUNTER → 2022-07-09 | Outpatient (CLI) | payer OTHER | LOC: M RAD 07:11 | PROVIDERS: ATTEND Nurse Practitioner Family | DX: R06.00 Dyspnea, unspecified (principal) ==

== ENCOUNTER 2022-07-30 00:21 | Inpatient (IN) | payer OTHER ==
[~2022-07-30 00:21] MED LIST changes: -ADME100I2; +ADME100I2 INJ
[2022-07-30] MEDS ORDERED: IPRATROPIUM 0.5MG/ALBUTEROL 2.5MG INH SOL UD 3ML (DUONEB) NEB PRN (01:10)
[2022-07-30 01:41] LABS: BASO # 0.1 10^3/uL (0.0-0.2); BASO % 0.6 % (0.0-1.0); EOS # 0.2 10^3/uL (0.0-0.5); HEMATOCRIT 32.8 % (36.0-47.0); HEMOGLOBIN 10.2 g/dl (12.0-15.5); LYMPH # 1.5 10^3/uL (1.5-5.0); LYMPH % 14.3 % (24.0-44.0); MEAN CORPUSCULAR HEMOGLOBIN 28.7 pg (27.0-33.0); MEAN CORPUSCULAR HGB CONC 31.1 g/dl (32.0-36.5); MEAN CORPUSCULAR VOLUME 92.1 fl (80.0-96.0); MONO # 0.9 10^3/uL (0.0-0.8); MONO % 8.3 % (2.0-8.0); NEUTROPHILS # 7.9 10^3/uL (1.5-8.5); NEUTROPHILS % 74.3 % (36.0-66.0); PLATELET COUNT, AUTOMATED 198 10^3/uL (150-450); RED BLOOD COUNT 3.56 10^6/uL (4.00-5.40); WHITE BLOOD COUNT 10.6 10^3/uL (4.0-10.0)
[2022-07-30 02:11] LABS: CPK CREATINE PHOSPHOKINASE 39 U/L (34-145)
[2022-07-30 02:14] LABS: ALBUMIN 2.9 G/DL (3.2-5.2); ALKALINE PHOSPHATASE 117 U/L (46-116); ALT/SGPT 20 U/L (7.0-40); AST/SGOT 20 U/L (<34); BILIRUBIN,DIRECT < 0.1 MG/DL (<0.4); BILIRUBIN,TOTAL 0.3 MG/DL (0.3-1.2); BLOOD UREA NITROGEN 56 MG/DL (9-23); CALCIUM LEVEL 9.3 MG/DL (8.3-10.6); CARBON DIOXIDE LEVEL 28 MMOL/L (20-31); CHLORIDE LEVEL 95 MMOL/L (98-107); CK-MB VALUE MASS 2.2 NG/ML (<3.6); CREATININE FOR GFR 7.88 MG/DL (0.55-1.30); GLOMERULAR FILTRATION RATE 5.5 (>45); GLUCOSE, FASTING 94 MG/DL (74-106); MB/CK RELATIVE INDEX 5.64 (< OR =4); POTASSIUM SERUM 5.2 MMOL/L (3.5-5.1); SODIUM LEVEL 135 MMOL/L (136-145); TOTAL PROTEIN 6.5 G/DL (5.7-8.2)
[2022-07-30 02:42] LABS: ABG BASE EXCESS 0.4 (-2.0-2.0); ABG HCO3 24.4 MEQ/L (22.0-26.0); ABG O2 SATURATION 92.8 % (95.0-99.0); ABG PARTIAL PRESSURE CO2 36.9 mmHg (35.0-45.0); ABG PARTIAL PRESSURE O2 70.9 mmHg (75.0-100.0); ABG STANDARD HCO3 24.8 MEQ/L (22.0-26.0); ABG TOTAL CO2 25.5 MEQ/L (23.0-31.0); ABG pH (ARTERIAL) 7.438 UNITS (7.350-7.450)
[2022-07-30 03:00] LABS: CK-MB VALUE MASS 2.2 NG/ML (<3.6)
[2022-07-30 03:06] LABS: MB/CK RELATIVE INDEX 5.78 (< OR =4)
[2022-07-30] MEDS ORDERED: LABETALOL 100MG/20ML VIAL IV STA (04:22)
[2022-07-30] MEDS ORDERED: cefTRIAXone SOD 2 GM in D5W MINI-BAG PLUS 50 ML IV ONE (04:30)
[2022-07-30] MEDS ORDERED: ACETAMINOPHEN TAB 650MG DOSE (2X325MG) PO PRN (04:45)
[2022-07-30] MEDS ORDERED: FLUTICASONE PROP 0.05% NASAL SPRAY 16 GM (FLONASE) NARES PRN (04:45)
[2022-07-30] MEDS ORDERED: GLUCAGON INJ 1MG VIAL SC PRN (05:10)
[2022-07-30] MEDS ORDERED: GLUCOSE 4GM CHEW TABLET PO PRN (05:10)
[2022-07-30] MEDS ORDERED: DEXTROSE 50% 50ML SYRINGE IV PRN (05:10)
[2022-07-30] MEDS ORDERED: ATOR1TAB19 PO (05:42)
[2022-07-30] MEDS ORDERED: LEVO175T2 PO (05:42)
[2022-07-30] MEDS ORDERED: METO1TAB7 PO (05:42)
[2022-07-30] MEDS ORDERED: AMLO1TAB25 PO (05:42)
[2022-07-30] MEDS ORDERED: AMLO1TAB24 PO (05:42)
[2022-07-30] MEDS ORDERED: LOSA50TA28 PO (05:42)
[2022-07-30] MEDS ORDERED: TRAM50TA2 PO (05:42)
[2022-07-30] MEDS ORDERED: HOME MED LIST COMPLETE! XX SCH (05:45)
[2022-07-30] MEDS ORDERED: HEPARIN 1,000UNITS/ML 10ML VIAL (FOR RADIOLOGY & DIALYSIS ONLY) IV PRN (05:55)
[2022-07-30] MEDS ORDERED: HEPARIN 1,000UNITS/ML 10ML VIAL (FOR RADIOLOGY & DIALYSIS ONLY) XX SCH (05:55)
[2022-07-30] MEDS ORDERED: LIDOCAINE 1% SDV 5ML VIAL SC PRN (05:55)
[2022-07-30] MEDS ORDERED: ALBUTEROL 90 MCG/ACT 8GM HFA INHALER INH PRN (05:55)
[2022-07-30] MEDS ORDERED: SODIUM CHLORIDE 0.9% 1000ML IV PRN (05:55)
[2022-07-30] MEDS ORDERED: cloNIDine 0.2 MG TAB PO ONE (06:00)
[2022-07-30] MEDS ORDERED: DOXYCYCLINE HYCLATE 100MG TABLET PO SCH (06:00)
[2022-07-30 06:54] LABS: BASO % 0.2 % (0.0-1.0); EOS # 0.1 10^3/uL (0.0-0.5); EOS % 0.5 % (0.0-3.0); HEMATOCRIT 35.4 % (36.0-47.0); HEMOGLOBIN 11.1 g/dl (12.0-15.5); LYMPH # 0.4 10^3/uL (1.5-5.0); LYMPH % 4.1 % (24.0-44.0); MEAN CORPUSCULAR HEMOGLOBIN 28.8 pg (27.0-33.0); MEAN CORPUSCULAR HGB CONC 31.4 g/dl (32.0-36.5); MEAN CORPUSCULAR VOLUME 91.7 fl (80.0-96.0); MONO # 0.2 10^3/uL (0.0-0.8); MONO % 1.9 % (2.0-8.0); NEUTROPHILS # 9.7 10^3/uL (1.5-8.5); NEUTROPHILS % 92.7 % (36.0-66.0); PLATELET COUNT, AUTOMATED 206 10^3/uL (150-450); RED BLOOD COUNT 3.86 10^6/uL (4.00-5.40); WHITE BLOOD COUNT 10.5 10^3/uL (4.0-10.0)
[2022-07-30 07:33] LABS: CALCIUM LEVEL 9.3 MG/DL (8.3-10.6); CREATININE FOR GFR 8.21 MG/DL (0.55-1.30); GLOMERULAR FILTRATION RATE 5.3 (>45); POTASSIUM SERUM 6.6 MMOL/L (3.5-5.1)
[2022-07-30] MEDS ORDERED: amLODIPine 5 MG TAB PO SCH (09:00)
[2022-07-30] MEDS: INSULIN LISPRO (NovoLOG) PER UNIT SC SCH ×4 (10:26→20:32)
[2022-07-30 11:25] VITALS: BP 159/74
[2022-07-30] MEDS: LEVOTHYROXINE 25MCG TABLET (0.025MG) PO SCH (12:09)
[2022-07-30] MEDS: ATORVASTATIN 10 MG TAB PO SCH (12:09)
[2022-07-30] MEDS: CINACALCET 30 MG TAB (SENSIPAR) PO SCH (12:09)
[2022-07-30] MEDS: CETIRIZINE (ZyrTEC) 10 MG TAB PO SCH (12:10)
[2022-07-30] MEDS: LOSARTAN 50MG TABLET PO SCH (12:10)
[2022-07-30] MEDS: LEVOTHYROXINE 150MCG TABLET (0.15MG) PO SCH (12:10)
[2022-07-30] MEDS: traMADol 50 MG TAB PO PRN (12:11)
[2022-07-30] MEDS: HEPARIN SOD (PORCINE) 5000UNITS/ML 1ML VIAL/SYRINGE SC SCH ×2 (14:06→21:04)
[2022-07-30 16:24] VITALS: BP 145/76
[2022-07-30 19:27] VITALS: BP 162/75
[2022-07-30 20:00] VITALS: BP 162/75
[2022-07-30] MEDS: DULoxetine 30MG CAPSULE (CYMBALTA) PO SCH (20:31)
[2022-07-30] MEDS: METOPROLOL SUCC (TopROL XL) 50MG **XL** TAB PO SCH (20:31)
[2022-07-30] MEDS: LEVEMIR (INSULIN DETEMIR) 1 UNITS/0.01ML SC SCH (20:32)
[2022-07-31] VITALS (7 sets, daily range): BP systolic 133–174; BP diastolic 63–82
[2022-07-31] MEDS ORDERED: cefTRIAXone SOD 1 GM in D5W MINI-BAG PLUS 50 ML IV SCH (06:00)
[2022-07-31] MEDS: HEPARIN SOD (PORCINE) 5000UNITS/ML 1ML VIAL/SYRINGE SC SCH ×3 (06:29→21:10)
[2022-07-31] MEDS: LEVOTHYROXINE 25MCG TABLET (0.025MG) PO SCH (06:29)
[2022-07-31] MEDS: LEVOTHYROXINE 150MCG TABLET (0.15MG) PO SCH (06:29)
[2022-07-31] MEDS: CETIRIZINE (ZyrTEC) 10 MG TAB PO SCH (06:39)
[2022-07-31] MEDS: CINACALCET 30 MG TAB (SENSIPAR) PO SCH (06:39)
[2022-07-31] MEDS: ATORVASTATIN 10 MG TAB PO SCH (06:39)
[2022-07-31] MEDS ORDERED: HEPARIN 1,000UNITS/ML 10ML VIAL (FOR RADIOLOGY & DIALYSIS ONLY) XX SCH (06:50)
[2022-07-31] MEDS ORDERED: LIDOCAINE 1% SDV 5ML VIAL SC PRN (06:50)
[2022-07-31] MEDS ORDERED: SODIUM CHLORIDE 0.9% 1000ML IV PRN (06:50)
[2022-07-31] MEDS ORDERED: HEPARIN 1,000UNITS/ML 10ML VIAL (FOR RADIOLOGY & DIALYSIS ONLY) IV PRN (06:50)
[2022-07-31] MEDS: INSULIN LISPRO (NovoLOG) PER UNIT SC SCH ×4 (07:30→20:40)
[2022-07-31 07:41] LABS: HEMOGLOBIN 10.3 g/dl (12.0-15.5); MEAN CORPUSCULAR HEMOGLOBIN 28.3 pg (27.0-33.0); MEAN CORPUSCULAR HGB CONC 30.3 g/dl (32.0-36.5); MEAN CORPUSCULAR VOLUME 93.4 fl (80.0-96.0); PLATELET COUNT, AUTOMATED 248 10^3/uL (150-450); RED BLOOD COUNT 3.64 10^6/uL (4.00-5.40)
[2022-07-31 08:14] LABS: CALCIUM LEVEL 9.8 MG/DL (8.3-10.6); CREATININE FOR GFR 6.33 MG/DL (0.55-1.30); GLOMERULAR FILTRATION RATE 7.1 (>45); POTASSIUM SERUM 4.7 MMOL/L (3.5-5.1)
[2022-07-31] MEDS: LOSARTAN 50MG TABLET PO SCH (13:05)
[2022-07-31] MEDS: traMADol 50 MG TAB PO PRN (18:29)
[2022-07-31] MEDS: DULoxetine 30MG CAPSULE (CYMBALTA) PO SCH (20:27)
[2022-07-31] MEDS: METOPROLOL SUCC (TopROL XL) 50MG **XL** TAB PO SCH (20:30)
[2022-07-31] MEDS: LEVEMIR (INSULIN DETEMIR) 1 UNITS/0.01ML SC SCH (20:30)
[2022-08-01] MEDS: traMADol 50 MG TAB PO PRN (04:26)
[2022-08-01 04:34] VITALS: O2SAT 97
[2022-08-01 06:00] VITALS: BP 124/65
[2022-08-01] MEDS: LEVOTHYROXINE 150MCG TABLET (0.15MG) PO SCH (06:12)
[2022-08-01] MEDS: HEPARIN SOD (PORCINE) 5000UNITS/ML 1ML VIAL/SYRINGE SC SCH (06:12)
[2022-08-01] MEDS: LEVOTHYROXINE 25MCG TABLET (0.025MG) PO SCH (06:12)
[2022-08-01 06:21] LABS: HEMATOCRIT 31.9 % (36.0-47.0); HEMOGLOBIN 10.4 g/dl (12.0-15.5); MEAN CORPUSCULAR HEMOGLOBIN 29.1 pg (27.0-33.0); MEAN CORPUSCULAR HGB CONC 32.6 g/dl (32.0-36.5); MEAN CORPUSCULAR VOLUME 89.1 fl (80.0-96.0); PLATELET COUNT, AUTOMATED 205 10^3/uL (150-450); RED BLOOD COUNT 3.58 10^6/uL (4.00-5.40); WHITE BLOOD COUNT 10.2 10^3/uL (4.0-10.0)
[2022-08-01 06:49] LABS: CREATININE FOR GFR 5.6 MG/DL (0.55-1.30); GLOMERULAR FILTRATION RATE 8.2 (>45); POTASSIUM SERUM 4.9 MMOL/L (3.5-5.1)
[2022-08-01] MEDS: INSULIN LISPRO (NovoLOG) PER UNIT SC SCH (07:30)
[2022-08-01] MEDS: CINACALCET 30 MG TAB (SENSIPAR) PO SCH (08:15)
[2022-08-01 08:16] VITALS: BP 124/65
[2022-08-01] MEDS: ATORVASTATIN 10 MG TAB PO SCH (08:16)
[2022-08-01] MEDS: CETIRIZINE (ZyrTEC) 10 MG TAB PO SCH (08:16)
[2022-08-01] MEDS: LOSARTAN 50MG TABLET PO SCH (08:16)
== END 2022-08-01 10:54 | disposition home or self-care (01) | DRG 194 ==
LOC: EDBD 00:21 → M ED 00:21 → M ED INP 04:42 → M PCU 11:16 → M MSPAV 07-31 22:59
PROVIDERS: ADMIT Internal Medicine; ATTEND Internal Medicine
PROC: 5A1D70Z Performance of Urinary Filtration, Intermittent, Less than 6 Hours Per Day (ICD-10-PCS; principal; 2022-07-30)
DX: I13.2 Hypertensive heart and chronic kidney disease with heart failure and with stage 5 chronic kidney disease, or end stage renal disease (principal); J96.01 Acute respiratory failure with hypoxia; N25.81 Secondary hyperparathyroidism of renal origin; N18.6 End stage renal disease; E11.22 Type 2 diabetes mellitus with diabetic chronic kidney disease; E87.5 Hyperkalemia; D63.1 Anemia in chronic kidney disease; Z99.2 Dependence on renal dialysis; K21.9 Gastro-esophageal reflux disease without esophagitis; M19.90 Unspecified osteoarthritis, unspecified site; E78.5 Hyperlipidemia, unspecified; Z90.49 Acquired absence of other specified parts of digestive tract; Z90.79 Acquired absence of other genital organ(s); F17.210 Nicotine dependence, cigarettes, uncomplicated; I16.0 Hypertensive urgency; E66.9 Obesity, unspecified; Z79.4 Long term (current) use of insulin; Z79.890 Hormone replacement therapy; Z79.899 Other long term (current) drug therapy; Z88.1 Allergy status to other antibiotic agents; Z88.2 Allergy status to sulfonamides; Z88.5 Allergy status to narcotic agent; Z88.6 Allergy status to analgesic agent; Z88.8 Allergy status to other drugs, medicaments and biological substances; Z20.822 Contact with and (suspected) exposure to COVID-19; I50.33 Acute on chronic diastolic (congestive) heart failure

== ENCOUNTER 2022-08-13 09:22 | Inpatient (IN) | payer MEDICAID, OTHER ==
[~2022-08-13 09:22] MED LIST changes: -ADME100I2 INJ; +ADME100I2 SC; +ATOR1TAB19 PO; +TRAM50TA2 PO
[2022-08-13 10:58] LABS: CK-MB VALUE MASS 2.1 NG/ML (<3.6)
[2022-08-13 11:00] LABS: CPK CREATINE PHOSPHOKINASE 40 U/L (34-145); MB/CK RELATIVE INDEX 5.25 (< OR =4)
[2022-08-13 11:11] LABS: ALBUMIN 2.9 G/DL (3.2-5.2); ALKALINE PHOSPHATASE 122 U/L (46-116); ALT/SGPT 18 U/L (7.0-40); AST/SGOT 17 U/L (<34); BILIRUBIN,DIRECT < 0.1 MG/DL (<0.4); BILIRUBIN,TOTAL 0.2 MG/DL (0.3-1.2); BLOOD UREA NITROGEN 67 MG/DL (9-23); CALCIUM LEVEL 8.6 MG/DL (8.3-10.6); CARBON DIOXIDE LEVEL 22 MMOL/L (20-31); CHLORIDE LEVEL 100 MMOL/L (98-107); CREATININE FOR GFR 11.17 MG/DL (0.55-1.30); GLOMERULAR FILTRATION RATE 3.7 (>45); GLUCOSE, FASTING 169 MG/DL (74-106); POTASSIUM SERUM 6.3 MMOL/L (3.5-5.1); SODIUM LEVEL 134 MMOL/L (136-145); TOTAL PROTEIN 6.6 G/DL (5.7-8.2)
[2022-08-13] MEDS ORDERED: CALCIUM CHLORIDE 10% 1 GM in D5W 100 ML IV ONE (11:50)
[2022-08-13] MEDS ORDERED: PATIROMER SORBITEX CALCIUM 8.4 GM POWDER PACKET (VELTASSA) PO ONE (12:40)
[2022-08-13] MEDS ORDERED: HEPARIN 1,000UNITS/ML 10ML VIAL (FOR RADIOLOGY & DIALYSIS ONLY) XX SCH (12:45)
[2022-08-13] MEDS ORDERED: HEPARIN 1,000UNITS/ML 10ML VIAL (FOR RADIOLOGY & DIALYSIS ONLY) IV PRN (12:45)
[2022-08-13] MEDS ORDERED: LIDOCAINE 1% SDV 5ML VIAL SC PRN (12:45)
[2022-08-13] MEDS ORDERED: SODIUM CHLORIDE 0.9% 1000ML IV PRN (12:45)
[2022-08-13] MEDS ORDERED: ATOR40TA75 PO (14:13)
[2022-08-13] MEDS ORDERED: ATOR1TAB19 (14:13)
[2022-08-13 14:17] LABS: BASO # 0.1 10^3/uL (0.0-0.2); BASO % 0.4 % (0.0-1.0); EOS # 0.2 10^3/uL (0.0-0.5); EOS % 1.6 % (0.0-3.0); HEMATOCRIT 30.9 % (36.0-47.0); HEMOGLOBIN 9.8 g/dl (12.0-15.5); LYMPH # 1.2 10^3/uL (1.5-5.0); MEAN CORPUSCULAR HGB CONC 31.7 g/dl (32.0-36.5); MEAN CORPUSCULAR VOLUME 91.4 fl (80.0-96.0); MONO # 0.8 10^3/uL (0.0-0.8); MONO % 6.3 % (2.0-8.0); NEUTROPHILS % 81.9 % (36.0-66.0); PLATELET COUNT, AUTOMATED 190 10^3/uL (150-450); RED BLOOD COUNT 3.38 10^6/uL (4.00-5.40); WHITE BLOOD COUNT 13.4 10^3/uL (4.0-10.0)
[2022-08-13] MEDS ORDERED: CROM5SOL OU (14:24)
[2022-08-13] MEDS ORDERED: FLON1SPR NARES (14:24)
[2022-08-13] MEDS ORDERED: LANT1000 PO (14:24)
[2022-08-13] MEDS ORDERED: DULO1CAP6 PO (14:24)
[2022-08-13] MEDS ORDERED: NYST1POW9 TOP (14:24)
[2022-08-13] MEDS ORDERED: ACET-683 PO (14:24)
[2022-08-13] MEDS ORDERED: HOME MED LIST COMPLETE! XX SCH (14:40)
[2022-08-13 16:20] VITALS: BP 192/92
[2022-08-13] MEDS ORDERED: GLUCOSE 4GM CHEW TABLET PO PRN (16:20)
[2022-08-13] MEDS ORDERED: GLUCAGON INJ 1MG VIAL SC PRN (16:20)
[2022-08-13] MEDS ORDERED: DEXTROSE 50% 50ML SYRINGE IV PRN (16:20)
[2022-08-13] MEDS ORDERED: PILL CUTTER 1 EACH XX PRN (16:30)
[2022-08-13] MEDS: INSULIN LISPRO (NovoLOG) PER UNIT SC SCH ×2 (17:30→21:00)
[2022-08-13 21:08] VITALS: BP 159/74
[2022-08-13] MEDS: LEVEMIR (INSULIN DETEMIR) 1 UNITS/0.01ML SC SCH (21:23)
[2022-08-13] MEDS: METOPROLOL SUCC (TopROL XL) 50MG **XL** TAB PO SCH (21:23)
[2022-08-13] MEDS: tiZANidine 4 MG TAB PO SCH (21:23)
[2022-08-13] MEDS: DULoxetine 30MG CAPSULE (CYMBALTA) PO SCH (21:23)
[2022-08-14] VITALS (7 sets, daily range): BP systolic 140–164; BP diastolic 66–78
[2022-08-14] MEDS: traMADol 50 MG TAB PO PRN ×3 (01:57→22:24)
[2022-08-14] MEDS: LEVOTHYROXINE 150MCG TABLET (0.15MG) PO SCH (06:18)
[2022-08-14] MEDS: LEVOTHYROXINE 25MCG TABLET (0.025MG) PO SCH (06:18)
[2022-08-14 06:32] LABS: HEMATOCRIT 25.5 % (36.0-47.0); HEMOGLOBIN 8.1 g/dl (12.0-15.5); MEAN CORPUSCULAR HEMOGLOBIN 28.9 pg (27.0-33.0); MEAN CORPUSCULAR HGB CONC 31.8 g/dl (32.0-36.5); MEAN CORPUSCULAR VOLUME 91.1 fl (80.0-96.0); PLATELET COUNT, AUTOMATED 154 10^3/uL (150-450); WHITE BLOOD COUNT 9.1 10^3/uL (4.0-10.0)
[2022-08-14 07:16] LABS: ALBUMIN 2.7 G/DL (3.2-5.2); BILIRUBIN,TOTAL 0.4 MG/DL (0.3-1.2); CALCIUM LEVEL 8.7 MG/DL (8.3-10.6); CREATININE FOR GFR 7.37 MG/DL (0.55-1.30); POTASSIUM SERUM 5.1 MMOL/L (3.5-5.1); TOTAL PROTEIN 6.3 G/DL (5.7-8.2)
[2022-08-14] MEDS: INSULIN LISPRO (NovoLOG) PER UNIT SC SCH ×4 (07:30→20:12)
[2022-08-14] MEDS ORDERED: HEPARIN 1,000UNITS/ML 10ML VIAL (FOR RADIOLOGY & DIALYSIS ONLY) XX SCH (08:05)
[2022-08-14] MEDS ORDERED: HEPARIN 1,000UNITS/ML 10ML VIAL (FOR RADIOLOGY & DIALYSIS ONLY) IV PRN (08:05)
[2022-08-14] MEDS ORDERED: SODIUM CHLORIDE 0.9% 1000ML IV PRN (08:05)
[2022-08-14] MEDS ORDERED: LIDOCAINE 1% SDV 5ML VIAL SC PRN (08:05)
[2022-08-14] MEDS: CINACALCET 30 MG TAB (SENSIPAR) PO SCH (08:15)
[2022-08-14] MEDS: ATORVASTATIN 10 MG TAB PO SCH (08:15)
[2022-08-14] MEDS: CETIRIZINE (ZyrTEC) 10 MG TAB PO SCH (08:15)
[2022-08-14] MEDS: ATORVASTATIN 20 MG TAB PO SCH (08:15)
[2022-08-14] MEDS ORDERED: EMLA CREAM 5GM TUBE (LIDOCAINE/PRILOCAINE) TOP ONE (09:00)
[2022-08-14] MEDS: FLUTICASONE PROP 0.05% NASAL SPRAY 16 GM (FLONASE) NARES SCH (09:00)
[2022-08-14] MEDS: amLODIPine 5 MG TAB PO SCH (13:15)
[2022-08-14] MEDS ORDERED: LOSARTAN 50MG TABLET PO ONE (15:00)
[2022-08-14] MEDS: DULoxetine 30MG CAPSULE (CYMBALTA) PO SCH (20:45)
[2022-08-14] MEDS: tiZANidine 4 MG TAB PO SCH (20:45)
[2022-08-14] MEDS: METOPROLOL SUCC (TopROL XL) 50MG **XL** TAB PO SCH (20:46)
[2022-08-14] MEDS: LEVEMIR (INSULIN DETEMIR) 1 UNITS/0.01ML SC SCH (20:47)
[2022-08-14 22:14] LABS: HEPATITIS B SURFACE ANTIGEN NEGATIVE (NEGATIVE)
[2022-08-14 22:27] LABS: HIV SCREEN CENTAUR SOURCE NEGATIVE (NEGATIVE)
[2022-08-15] MEDS: LEVOTHYROXINE 25MCG TABLET (0.025MG) PO SCH (05:44)
[2022-08-15] MEDS: LEVOTHYROXINE 150MCG TABLET (0.15MG) PO SCH (05:44)
[2022-08-15 06:00] VITALS: BP 138/74
[2022-08-15] MEDS: INSULIN LISPRO (NovoLOG) PER UNIT SC SCH (07:24)
[2022-08-15] MEDS: ATORVASTATIN 20 MG TAB PO SCH (08:00)
[2022-08-15] MEDS: CINACALCET 30 MG TAB (SENSIPAR) PO SCH (08:00)
[2022-08-15] MEDS: CETIRIZINE (ZyrTEC) 10 MG TAB PO SCH (08:03)
[2022-08-15] MEDS: ATORVASTATIN 10 MG TAB PO SCH (08:03)
[2022-08-15 08:04] VITALS: BP 163/65
[2022-08-15] MEDS: amLODIPine 5 MG TAB PO SCH (08:04)
[2022-08-15] MEDS: FLUTICASONE PROP 0.05% NASAL SPRAY 16 GM (FLONASE) NARES SCH (08:06)
[2022-08-15] MEDS ORDERED: LOSARTAN 50MG TABLET PO SCH (09:00)
== END 2022-08-15 09:58 | disposition home or self-care (01) | DRG 194 ==
LOC: M ED 09:22 → M ED INP 13:39 → ENRESERV 15:29 → M PCU 16:11 → M MSPAV 08-14 16:52
PROVIDERS: ADMIT Internal Medicine Nephrology; ATTEND General Practice
PROC: 5A1D70Z Performance of Urinary Filtration, Intermittent, Less than 6 Hours Per Day (ICD-10-PCS; principal; 2022-08-14)
DX: I13.2 Hypertensive heart and chronic kidney disease with heart failure and with stage 5 chronic kidney disease, or end stage renal disease (principal); N18.6 End stage renal disease; E11.22 Type 2 diabetes mellitus with diabetic chronic kidney disease; N25.81 Secondary hyperparathyroidism of renal origin; E66.01 Morbid (severe) obesity due to excess calories; E87.5 Hyperkalemia; J43.9 Emphysema, unspecified; K76.0 Fatty (change of) liver, not elsewhere classified; Z99.2 Dependence on renal dialysis; G47.33 Obstructive sleep apnea (adult) (pediatric); I16.0 Hypertensive urgency; D63.1 Anemia in chronic kidney disease; I25.10 Atherosclerotic heart disease of native coronary artery without angina pectoris; F17.200 Nicotine dependence, unspecified, uncomplicated; F32.A Depression, unspecified; I08.0 Rheumatic disorders of both mitral and aortic valves; M51.36 Other intervertebral disc degeneration, lumbar region; E55.9 Vitamin D deficiency, unspecified; K21.9 Gastro-esophageal reflux disease without esophagitis; R91.8 Other nonspecific abnormal finding of lung field; E03.9 Hypothyroidism, unspecified; Z90.79 Acquired absence of other genital organ(s); Z90.49 Acquired absence of other specified parts of digestive tract; Z79.4 Long term (current) use of insulin; Z79.890 Hormone replacement therapy; Z79.899 Other long term (current) drug therapy; Z88.1 Allergy status to other antibiotic agents; Z88.2 Allergy status to sulfonamides; Z88.5 Allergy status to narcotic agent; Z88.6 Allergy status to analgesic agent; Z88.8 Allergy status to other drugs, medicaments and biological substances; Z20.822 Contact with and (suspected) exposure to COVID-19; I50.23 Acute on chronic systolic (congestive) heart failure

== ENCOUNTER 2022-08-20 21:40 | Emergency (ER) | payer OTHER ==
[~2022-08-20] VITALS: Ht 170.2 cm; Wt 106.8 kg
[~2022-08-20 21:40] MED LIST changes: +ACET-683 PO; +ATOR1TAB19; +ATOR40TA75 PO; +CROM5SOL OU; +DULO1CAP6 PO; +FLON1SPR NARES; +LANT1000 PO; +NYST1POW9 TOP
[2022-08-20 23:04] LABS: BASO % 0.2 % (0.0-1.0); EOS # 0.2 10^3/uL (0.0-0.5); EOS % 1.4 % (0.0-3.0); HEMOGLOBIN 8.1 g/dl (12.0-15.5); LYMPH # 0.9 10^3/uL (1.5-5.0); LYMPH % 7.2 % (24.0-44.0); MEAN CORPUSCULAR HEMOGLOBIN 29.3 pg (27.0-33.0); MEAN CORPUSCULAR HGB CONC 32.4 g/dl (32.0-36.5); MEAN CORPUSCULAR VOLUME 90.6 fl (80.0-96.0); MONO # 0.8 10^3/uL (0.0-0.8); MONO % 6.3 % (2.0-8.0); NEUTROPHILS # 10.1 10^3/uL (1.5-8.5); NEUTROPHILS % 84.1 % (36.0-66.0); PLATELET COUNT, AUTOMATED 179 10^3/uL (150-450); RED BLOOD COUNT 2.76 10^6/uL (4.00-5.40)
[2022-08-20 23:41] LABS: BILIRUBIN,TOTAL 0.4 MG/DL (0.3-1.2); CK-MB VALUE MASS 2.2 NG/ML (<3.6); CREATININE FOR GFR 8.94 MG/DL (0.55-1.30); GLOMERULAR FILTRATION RATE 4.8 (>45); MAGNESIUM LEVEL 2.2 MG/DL (1.8-2.4); MB/CK RELATIVE INDEX 5.36 (< OR =4); POTASSIUM SERUM 5.1 MMOL/L (3.5-5.1); TOTAL PROTEIN 6.6 G/DL (5.7-8.2)
[2022-08-21 00:01] VITALS: BP 155/72
[2022-08-21] MEDS ORDERED: IPRATROPIUM 0.5MG/ALBUTEROL 2.5MG INH SOL UD 3ML (DUONEB) NEB ONE (00:10)
== END 2022-08-21 01:15 | disposition home or self-care (01) ==
LOC: EDBD 21:40 → M ED 21:40
DX: R06.00 Dyspnea, unspecified (principal); E11.9 Type 2 diabetes mellitus without complications; I10 Essential (primary) hypertension; E78.5 Hyperlipidemia, unspecified; J44.9 Chronic obstructive pulmonary disease, unspecified; N18.6 End stage renal disease; Z99.2 Dependence on renal dialysis; Z79.4 Long term (current) use of insulin; Z79.899 Other long term (current) drug therapy; Z88.2 Allergy status to sulfonamides; Z88.8 Allergy status to other drugs, medicaments and biological substances; Z88.5 Allergy status to narcotic agent; Z88.6 Allergy status to analgesic agent

== ENCOUNTER 2022-08-21 09:44 | Emergency (ER) | payer OTHER ==
[~2022-08-21] VITALS: Ht 170.2 cm; Wt 106.8 kg
[2022-08-21 11:02] LABS: BASO % 0.2 % (0.0-1.0); EOS # 0.1 10^3/uL (0.0-0.5); EOS % 1.6 % (0.0-3.0); HEMATOCRIT 26.3 % (36.0-47.0); HEMOGLOBIN 8.3 g/dl (12.0-15.5); LYMPH # 0.6 10^3/uL (1.5-5.0); LYMPH % 7.7 % (24.0-44.0); MEAN CORPUSCULAR HEMOGLOBIN 28.7 pg (27.0-33.0); MEAN CORPUSCULAR HGB CONC 31.6 g/dl (32.0-36.5); MONO # 0.6 10^3/uL (0.0-0.8); MONO % 7.4 % (2.0-8.0); NEUTROPHILS # 6.9 10^3/uL (1.5-8.5); NEUTROPHILS % 82.4 % (36.0-66.0); PLATELET COUNT, AUTOMATED 172 10^3/uL (150-450); RED BLOOD COUNT 2.89 10^6/uL (4.00-5.40); WHITE BLOOD COUNT 8.4 10^3/uL (4.0-10.0)
[2022-08-21 12:00] LABS: CALCIUM LEVEL 8.9 MG/DL (8.3-10.6); CREATININE FOR GFR 4.94 MG/DL (0.55-1.30); GLOMERULAR FILTRATION RATE 9.5 (>45); POTASSIUM SERUM 3.8 MMOL/L (3.5-5.1)
[2022-08-21 13:00] VITALS: BP 134/72
[2022-08-21 13:33] LABS: MB/CK RELATIVE INDEX 2.63 (< OR =4)
[2022-08-21 13:34] LABS: CK-MB VALUE MASS 1.5 NG/ML (<3.6)
[2022-08-21 13:35] LABS: MB/CK RELATIVE INDEX 4.16 (< OR =4)
== END 2022-08-21 13:05 | disposition home or self-care (01) ==
LOC: EDBD 09:44 → M ED 09:44
DX: R07.89 Other chest pain (principal); I50.9 Heart failure, unspecified; E11.9 Type 2 diabetes mellitus without complications; I10 Essential (primary) hypertension; E78.5 Hyperlipidemia, unspecified; E66.01 Morbid (severe) obesity due to excess calories; F17.200 Nicotine dependence, unspecified, uncomplicated; Z82.49 Family history of ischemic heart disease and other diseases of the circulatory system; Z79.4 Long term (current) use of insulin; Z79.890 Hormone replacement therapy; Z79.899 Other long term (current) drug therapy; Z88.2 Allergy status to sulfonamides; Z88.5 Allergy status to narcotic agent; Z88.6 Allergy status to analgesic agent; Z88.8 Allergy status to other drugs, medicaments and biological substances

== ENCOUNTER 2022-08-28 03:17 | Inpatient (IN) | payer OTHER ==
[2022-08-28 03:56] LABS: BASO % 0.2 % (0.0-1.0); EOS # 0.2 10^3/uL (0.0-0.5); EOS % 2.6 % (0.0-3.0); HEMATOCRIT 25.1 % (36.0-47.0); LYMPH # 0.9 10^3/uL (1.5-5.0); LYMPH % 10.7 % (24.0-44.0); MEAN CORPUSCULAR HEMOGLOBIN 30.1 pg (27.0-33.0); MEAN CORPUSCULAR HGB CONC 31.9 g/dl (32.0-36.5); MEAN CORPUSCULAR VOLUME 94.4 fl (80.0-96.0); MONO # 0.6 10^3/uL (0.0-0.8); MONO % 7.4 % (2.0-8.0); NEUTROPHILS # 6.7 10^3/uL (1.5-8.5); NEUTROPHILS % 78.6 % (36.0-66.0); PLATELET COUNT, AUTOMATED 166 10^3/uL (150-450); RED BLOOD COUNT 2.66 10^6/uL (4.00-5.40); WHITE BLOOD COUNT 8.5 10^3/uL (4.0-10.0)
[2022-08-28 05:31] LABS: ALBUMIN 3.1 G/DL (3.2-5.2); BILIRUBIN,DIRECT 0.1 MG/DL (<0.4); BILIRUBIN,TOTAL 0.5 MG/DL (0.3-1.2); CALCIUM LEVEL 8.8 MG/DL (8.3-10.6); CK-MB VALUE MASS 1.2 NG/ML (<3.6); CREATININE FOR GFR 9.42 MG/DL (0.55-1.30); GLOMERULAR FILTRATION RATE 4.5 (>45); MB/CK RELATIVE INDEX 2.79 (< OR =4); POTASSIUM SERUM 5.7 MMOL/L (3.5-5.1); TOTAL PROTEIN 6.8 G/DL (5.7-8.2)
[2022-08-28 06:33] LABS: CK-MB VALUE MASS 1.1 NG/ML (<3.6)
[2022-08-28 06:34] LABS: MB/CK RELATIVE INDEX 2.97 (< OR =4)
[2022-08-28] MEDS ORDERED: FUROSEMIDE 40MG/4ML VIAL IV ONE (06:50)
[2022-08-28] MEDS ORDERED: DEXTROSE 50% 50ML SYRINGE IV PRN (07:10)
[2022-08-28] MEDS ORDERED: GLUCOSE 4GM CHEW TABLET PO PRN (07:10)
[2022-08-28] MEDS ORDERED: GLUCAGON INJ 1MG VIAL SC PRN (07:10)
[2022-08-28] MEDS: INSULIN LISPRO (NovoLOG) PER UNIT SC SCH ×3 (07:30→17:38)
[2022-08-28] MEDS ORDERED: LOSARTAN 50MG TABLET PO ONE (07:45)
[2022-08-28] MEDS ORDERED: PATIROMER SORBITEX CALCIUM 8.4 GM POWDER PACKET (VELTASSA) PO ONE (08:00)
[2022-08-28] MEDS ORDERED: CALCIUM GLUCONATE 1,000 MG in D5W MINI-BAG PLUS 100 ML IV ONE (08:00)
[2022-08-28] MEDS ORDERED: FURO40TA2 PO (08:21)
[2022-08-28] MEDS ORDERED: LIDO1CRE42 TOP (08:21)
[2022-08-28] MEDS ORDERED: HOME MED LIST COMPLETE! XX SCH (08:25)
[2022-08-28] MEDS ORDERED: LIDOCAINE 1% SDV 5ML VIAL SC PRN (08:30)
[2022-08-28] MEDS ORDERED: HEPARIN 1,000UNITS/ML 10ML VIAL (FOR RADIOLOGY & DIALYSIS ONLY) XX SCH (08:30)
[2022-08-28] MEDS ORDERED: HEPARIN 1,000UNITS/ML 10ML VIAL (FOR RADIOLOGY & DIALYSIS ONLY) IV PRN (08:30)
[2022-08-28] MEDS ORDERED: SODIUM CHLORIDE 0.9% 1000ML IV PRN (08:30)
[2022-08-28] MEDS ORDERED: amLODIPine 5 MG TAB PO SCH (09:00)
[2022-08-28] MEDS ORDERED: ENTER DRUG NAME HERE (PATIENT'S OWN MED) SQ SCH (09:00)
[2022-08-28] MEDS ORDERED: PERCOCET 5MG/325MG TAB PO ONE (13:00)
[2022-08-28 13:55] VITALS: BP 137/63
[2022-08-28] MEDS: HEPARIN SOD (PORCINE) 5000UNITS/ML 1ML VIAL/SYRINGE SQ SCH ×2 (14:00→21:03)
[2022-08-28] MEDS ORDERED: PERCOCET 5MG/325MG TAB PO PRN (14:15)
[2022-08-28] MEDS ORDERED: traMADol 50 MG TAB PO ONE (14:15)
[2022-08-28] MEDS: LEVOTHYROXINE 150MCG TABLET (0.15MG) PO SCH (14:27)
[2022-08-28] MEDS: LEVOTHYROXINE 25MCG TABLET (0.025MG) PO SCH (14:27)
[2022-08-28] MEDS ORDERED: LIDOCAINE 5% (LIDODERM) PATCH TD SCH ×2 (14:30)
[2022-08-28 20:16] VITALS: BP 136/64
[2022-08-28 20:27] VITALS: BP 136/64
[2022-08-28] MEDS ORDERED: DULoxetine 30MG CAPSULE (CYMBALTA) PO SCH (21:00)
[2022-08-28] MEDS ORDERED: LEVEMIR (INSULIN DETEMIR) 1 UNITS/0.01ML SC SCH (21:00)
[2022-08-28] MEDS ORDERED: METOPROLOL TART 50 MG TAB PO SCH (21:00)
[2022-08-28] MEDS ORDERED: ATORVASTATIN 20 MG TAB PO SCH (21:00)
[2022-08-28] MEDS ORDERED: INSULIN LISPRO (NovoLOG) PER UNIT SC SCH (21:00)
[2022-08-28] MEDS: traMADol 50 MG TAB PO PRN (23:58)
[2022-08-29 04:27] VITALS: BP 144/80
[2022-08-29] MEDS: traMADol 50 MG TAB PO PRN (05:04)
[2022-08-29 05:20] LABS: HEMATOCRIT 24.1 % (36.0-47.0); HEMOGLOBIN 7.7 g/dl (12.0-15.5); MEAN CORPUSCULAR HEMOGLOBIN 29.8 pg (27.0-33.0); MEAN CORPUSCULAR VOLUME 93.4 fl (80.0-96.0); PLATELET COUNT, AUTOMATED 167 10^3/uL (150-450); RED BLOOD COUNT 2.58 10^6/uL (4.00-5.40); WHITE BLOOD COUNT 8.7 10^3/uL (4.0-10.0)
[2022-08-29 05:58] LABS: CALCIUM LEVEL 9.5 MG/DL (8.3-10.6); CREATININE FOR GFR 6.38 MG/DL (0.55-1.30); GLOMERULAR FILTRATION RATE 7.1 (>45); POTASSIUM SERUM 5.3 MMOL/L (3.5-5.1)
[2022-08-29] MEDS ORDERED: SODIUM CHLORIDE 0.9% 1000ML IV PRN (06:00)
[2022-08-29] MEDS ORDERED: HEPARIN 1,000UNITS/ML 10ML VIAL (FOR RADIOLOGY & DIALYSIS ONLY) XX SCH (06:00)
[2022-08-29] MEDS ORDERED: HEPARIN 1,000UNITS/ML 10ML VIAL (FOR RADIOLOGY & DIALYSIS ONLY) IV PRN (06:00)
[2022-08-29] MEDS: HEPARIN SOD (PORCINE) 5000UNITS/ML 1ML VIAL/SYRINGE SQ SCH (06:22)
[2022-08-29] MEDS: LEVOTHYROXINE 150MCG TABLET (0.15MG) PO SCH (06:22)
[2022-08-29] MEDS: LEVOTHYROXINE 25MCG TABLET (0.025MG) PO SCH (06:22)
[2022-08-29] MEDS: INSULIN LISPRO (NovoLOG) PER UNIT SC SCH (06:23)
[2022-08-29] MEDS ORDERED: ASPIRIN 81MG ENTERIC TABLET PO SCH (09:00)
[2022-08-29] MEDS ORDERED: LOSARTAN 50MG TABLET PO SCH (09:00)
[2022-08-30] MEDS ORDERED: DULAGLUTIDE SQ SCH (09:00)
== END 2022-08-29 08:50 | disposition short-term general hospital (02) | DRG 194 ==
LOC: M ED 03:17 → EDBD 03:17 → M ED INP 07:08 → ENRESERV 08:52 → M PCU 09:14
PROVIDERS: ADMIT General Practice; ATTEND General Practice
DX: I13.2 Hypertensive heart and chronic kidney disease with heart failure and with stage 5 chronic kidney disease, or end stage renal disease (principal); N18.6 End stage renal disease; E11.21 Type 2 diabetes mellitus with diabetic nephropathy; E11.22 Type 2 diabetes mellitus with diabetic chronic kidney disease; N25.81 Secondary hyperparathyroidism of renal origin; E66.01 Morbid (severe) obesity due to excess calories; J43.9 Emphysema, unspecified; E87.5 Hyperkalemia; E87.1 Hypo-osmolality and hyponatremia; K76.0 Fatty (change of) liver, not elsewhere classified; E78.00 Pure hypercholesterolemia, unspecified; I08.0 Rheumatic disorders of both mitral and aortic valves; Z99.2 Dependence on renal dialysis; I16.1 Hypertensive emergency; D63.8 Anemia in other chronic diseases classified elsewhere; E03.9 Hypothyroidism, unspecified; G47.33 Obstructive sleep apnea (adult) (pediatric); F17.200 Nicotine dependence, unspecified, uncomplicated; I25.10 Atherosclerotic heart disease of native coronary artery without angina pectoris; R91.8 Other nonspecific abnormal finding of lung field; F32.A Depression, unspecified; M48.061 Spinal stenosis, lumbar region without neurogenic claudication; E55.9 Vitamin D deficiency, unspecified; K21.9 Gastro-esophageal reflux disease without esophagitis; Z90.79 Acquired absence of other genital organ(s); Z90.49 Acquired absence of other specified parts of digestive tract; Z91.118 Patient's noncompliance with dietary regimen for other reason; Z79.4 Long term (current) use of insulin; Z79.890 Hormone replacement therapy; Z79.899 Other long term (current) drug therapy; Z88.2 Allergy status to sulfonamides; Z88.5 Allergy status to narcotic agent; Z88.8 Allergy status to other drugs, medicaments and biological substances; I50.43 Acute on chronic combined systolic (congestive) and diastolic (congestive) heart failure

== ENCOUNTER 2022-09-26 08:08 | Observation (INO) | payer OTHER ==
[~2022-09-26] VITALS: Ht 170.2 cm; Wt 117.0 kg
[~2022-09-26 08:08] MED LIST changes: +CROM4SOL4 OU; -CROM5SOL OU; +FLUT50SP17 NARES; -FLUTISP NARES; +FURO40TA2 PO; +LIDO1CRE42 TOP
[2022-09-26 08:45] LABS: VENOUS BASE EXCESS -4.4 (-2.0-2.0); VENOUS O2 SATURATION 80.3 % (60.0-80.0); VENOUS PARTIAL PRESSURE CO2 46.3 mmHg (38.0-50.0); VENOUS PARTIAL PRESSURE O2 52.5 mmHg (30.0-50.0); VENOUS PH 7.294 UNITS (7.330-7.430); VENOUS STANDARD HCO3 20.5 MEQ/L; VENOUS TOTAL CO2 23.4 MEQ/L (24.0-28.0)
[2022-09-26 08:46] LABS: BASO % 0.5 % (0.0-1.0); EOS # 0.2 10^3/uL (0.0-0.5); HEMATOCRIT 27.1 % (36.0-47.0); HEMOGLOBIN 8.4 g/dl (12.0-15.5); LYMPH # 0.6 10^3/uL (1.5-5.0); MEAN CORPUSCULAR HEMOGLOBIN 30.1 pg (27.0-33.0); MEAN CORPUSCULAR VOLUME 97.1 fl (80.0-96.0); MONO # 0.5 10^3/uL (0.0-0.8); MONO % 6.5 % (2.0-8.0); NEUTROPHILS # 6.7 10^3/uL (1.5-8.5); NEUTROPHILS % 83.5 % (36.0-66.0); PLATELET COUNT, AUTOMATED 174 10^3/uL (150-450); RED BLOOD COUNT 2.79 10^6/uL (4.00-5.40)
[2022-09-26] MEDS ORDERED: ALPRAZolam 0.25 MG TAB PO ONE (09:00)
[2022-09-26 09:13] LABS: THYROID STIMULATING HORMONE 2.048 uIU/ML (0.55-4.78)
[2022-09-26 09:21] LABS: RSV AMPLIFICATION NEGATIVE (NEGATIVE)
[2022-09-26 09:29] LABS: ALBUMIN 3.2 G/DL (3.2-5.2); BILIRUBIN,DIRECT 0.1 MG/DL (<0.4); BILIRUBIN,TOTAL 0.3 MG/DL (0.3-1.2); CALCIUM LEVEL 9.1 MG/DL (8.3-10.6); CREATININE FOR GFR 12.27 MG/DL (0.55-1.30); GLOMERULAR FILTRATION RATE 3.3 (>45); POTASSIUM SERUM 6.5 MMOL/L (3.5-5.1); TOTAL PROTEIN 6.8 G/DL (5.7-8.2)
[2022-09-26] MEDS ORDERED: ONDANSETRON 4MG 2ML VIAL IV ONE (09:45)
[2022-09-26] MEDS ORDERED: SODIUM BICARBONATE 8.4% INJ 50ML SYRINGE IV ONE (09:45)
[2022-09-26] MEDS ORDERED: PATIROMER SORBITEX CALCIUM 8.4 GM POWDER PACKET (VELTASSA) PO ONE (09:45)
[2022-09-26] MEDS ORDERED: CALCIUM CHLORIDE 10% 1 GM/10 ML SYR IV ONE (09:45)
[2022-09-26] MEDS ORDERED: DEXTROSE 50% 50ML SYRINGE IV ONE (09:45)
[2022-09-26] MEDS ORDERED: HumuLIN R (REGULAR) INSULIN (NovoLIN R) **100U/ML** PER UNIT IV ONE (09:45)
[2022-09-26] MEDS ORDERED: SODIUM CHLORIDE 0.9% 1000ML IV PRN (10:35)
[2022-09-26] MEDS ORDERED: LIDOCAINE 1% SDV 5ML VIAL SC PRN (10:35)
[2022-09-26] MEDS ORDERED: HEPARIN 1,000UNITS/ML 10ML VIAL (FOR RADIOLOGY & DIALYSIS ONLY) IV PRN (10:35)
[2022-09-26] MEDS ORDERED: HEPARIN 1,000UNITS/ML 10ML VIAL (FOR RADIOLOGY & DIALYSIS ONLY) XX SCH (10:35)
[2022-09-26] MEDS ORDERED: METO5TA PO (11:04)
[2022-09-26] MEDS ORDERED: HOME MED LIST COMPLETE! XX SCH (11:15)
[2022-09-26] MEDS ORDERED: DEXTROSE 50% 50ML SYRINGE IV PRN (11:20)
[2022-09-26] MEDS ORDERED: GLUCOSE 4GM CHEW TABLET PO PRN (11:20)
[2022-09-26] MEDS ORDERED: FLUTICASONE PROP 0.05% NASAL SPRAY 16 GM (FLONASE) NARES PRN (11:20)
[2022-09-26] MEDS ORDERED: GLUCAGON INJ 1MG VIAL SC PRN (11:20)
[2022-09-26] MEDS ORDERED: ALBUTEROL 90 MCG/ACT 8GM HFA INHALER INH PRN (11:20)
[2022-09-26] MEDS ORDERED: hydrALAZINE 20MG/ML 1ML VIAL IV STA (11:35)
[2022-09-26] MEDS: INSULIN LISPRO (NovoLOG) PER UNIT SC SCH ×2 (12:00→18:19)
[2022-09-26] MEDS: EMLA CREAM 5GM TUBE (LIDOCAINE/PRILOCAINE) TOP SCH (12:24)
[2022-09-26 18:00] VITALS: BP 152/70
[2022-09-26] MEDS: ACETAMINOPHEN TAB 650MG DOSE (2X325MG) PO PRN (18:18)
[2022-09-26 20:00] VITALS: BP 146/72
[2022-09-26] MEDS ORDERED: METOPROLOL SUCC (TopROL XL) 50MG **XL** TAB PO SCH (21:00)
[2022-09-26] MEDS ORDERED: INSULIN LISPRO (NovoLOG) PER UNIT SC SCH (21:00)
[2022-09-26] MEDS ORDERED: DULoxetine 30MG CAPSULE (CYMBALTA) PO SCH (21:00)
[2022-09-26 21:31] VITALS: BP 148/88
[2022-09-26] MEDS: traMADol 50 MG TAB PO SCH (21:31)
[2022-09-26] MEDS: FUROSEMIDE 40 MG TAB PO SCH (21:32)
[2022-09-26] MEDS ORDERED: ANALGESIC BALM CRM 3OZ TOP PRN (23:00)
[2022-09-27] MEDS ORDERED: SODIUM CHLORIDE 0.9% 1000ML IV PRN (00:15)
[2022-09-27] MEDS ORDERED: HEPARIN 1,000UNITS/ML 10ML VIAL (FOR RADIOLOGY & DIALYSIS ONLY) XX SCH (00:15)
[2022-09-27] MEDS ORDERED: LIDOCAINE 1% SDV 5ML VIAL SC PRN (00:15)
[2022-09-27] MEDS ORDERED: HEPARIN 1,000UNITS/ML 10ML VIAL (FOR RADIOLOGY & DIALYSIS ONLY) IV PRN (00:15)
[2022-09-27 06:00] VITALS: BP 130/65
[2022-09-27] MEDS ORDERED: LEVOTHYROXINE 150MCG TABLET (0.15MG) PO SCH (06:00)
[2022-09-27] MEDS ORDERED: LEVOTHYROXINE 25MCG TABLET (0.025MG) PO SCH (06:00)
[2022-09-27 06:08] LABS: HEMATOCRIT 28.7 % (36.0-47.0); HEMOGLOBIN 8.8 g/dl (12.0-15.5); MEAN CORPUSCULAR HEMOGLOBIN 29.6 pg (27.0-33.0); MEAN CORPUSCULAR HGB CONC 30.7 g/dl (32.0-36.5); MEAN CORPUSCULAR VOLUME 96.6 fl (80.0-96.0); PLATELET COUNT, AUTOMATED 172 10^3/uL (150-450); RED BLOOD COUNT 2.97 10^6/uL (4.00-5.40); WHITE BLOOD COUNT 7.2 10^3/uL (4.0-10.0)
[2022-09-27 07:04] LABS: ALBUMIN 3.1 G/DL (3.2-5.2); BILIRUBIN,TOTAL 0.4 MG/DL (0.3-1.2); CALCIUM LEVEL 9.6 MG/DL (8.3-10.6); CREATININE FOR GFR 7.42 MG/DL (0.55-1.30); GLOMERULAR FILTRATION RATE 5.9 (>45); MAGNESIUM LEVEL 1.9 MG/DL (1.8-2.4); POTASSIUM SERUM 5.3 MMOL/L (3.5-5.1); TOTAL PROTEIN 6.8 G/DL (5.7-8.2)
[2022-09-27] MEDS: INSULIN LISPRO (NovoLOG) PER UNIT SC SCH ×2 (07:30→12:18)
[2022-09-27] MEDS ORDERED: CETIRIZINE (ZyrTEC) 10 MG TAB PO SCH (09:00)
[2022-09-27] MEDS ORDERED: metOLazone 5 MG TAB PO SCH (09:00)
[2022-09-27] MEDS ORDERED: ATORVASTATIN 20 MG TAB PO SCH (09:00)
[2022-09-27] MEDS ORDERED: CINACALCET 30 MG TAB (SENSIPAR) PO SCH (09:00)
[2022-09-27] MEDS: traMADol 50 MG TAB PO SCH (09:57)
[2022-09-27] MEDS: FUROSEMIDE 40 MG TAB PO SCH (09:58)
[2022-09-27] MEDS ORDERED: ATOR40TA75 PO (10:43)
[2022-09-27] MEDS ORDERED: AMLO1TAB25 PO (10:43)
[2022-09-27] MEDS: EMLA CREAM 5GM TUBE (LIDOCAINE/PRILOCAINE) TOP SCH (12:17)
[2022-09-27] MEDS: ACETAMINOPHEN TAB 650MG DOSE (2X325MG) PO PRN (16:02)
[2022-09-27 17:38] VITALS: BP 150/71
== END 2022-09-27 18:07 | disposition home or self-care (01) ==
LOC: M ED 08:08 → M ED INP 08:09 → M MSPAV 16:57
PROVIDERS: ADMIT Family Medicine; ATTEND Family Medicine
DX: E87.70 Fluid overload, unspecified (principal); N18.6 End stage renal disease; E87.5 Hyperkalemia; Z91.158 Patient's noncompliance with renal dialysis for other reason; E87.8 Other disorders of electrolyte and fluid balance, not elsewhere classified; I12.0 Hypertensive chronic kidney disease with stage 5 chronic kidney disease or end stage renal disease; E11.9 Type 2 diabetes mellitus without complications; I50.32 Chronic diastolic (congestive) heart failure; Z88.2 Allergy status to sulfonamides; Z88.5 Allergy status to narcotic agent; Z79.899 Other long term (current) drug therapy; Z79.4 Long term (current) use of insulin; Z88.8 Allergy status to other drugs, medicaments and biological substances
CPT/HCPCS: 36415; 71045; 80048; 80053; 80076; 82803; 83735; 83880; 84443; 85025; 85027; 87631; 93005; 93041; 94760; 96374; 96375; 99285; J0360; J1815; J2405

== ENCOUNTER 2022-10-02 04:32 | Inpatient (IN) | payer OTHER ==
[~2022-10-02] VITALS: Ht 170.2 cm; Wt 113.7 kg
[~2022-10-02 04:32] MED LIST changes: +METO5TA PO
[2022-10-02 05:27] LABS: VENOUS BASE EXCESS -2.7 (-2.0-2.0); VENOUS HCO3 22.7 MEQ/L (23.0-27.0); VENOUS O2 SATURATION 94.5 % (60.0-80.0); VENOUS PARTIAL PRESSURE CO2 41.9 mmHg (38.0-50.0); VENOUS PARTIAL PRESSURE O2 84.7 mmHg (30.0-50.0); VENOUS PH 7.352 UNITS (7.330-7.430); VENOUS STANDARD HCO3 22.2 MEQ/L
[2022-10-02 05:35] LABS: BASO # 0.1 10^3/uL (0.0-0.2); BASO % 0.5 % (0.0-1.0); EOS # 0.2 10^3/uL (0.0-0.5); EOS % 2.2 % (0.0-3.0); HEMATOCRIT 30.4 % (36.0-47.0); HEMOGLOBIN 9.4 g/dl (12.0-15.5); LYMPH # 0.6 10^3/uL (1.5-5.0); LYMPH % 6.5 % (24.0-44.0); MEAN CORPUSCULAR HEMOGLOBIN 29.7 pg (27.0-33.0); MEAN CORPUSCULAR HGB CONC 30.9 g/dl (32.0-36.5); MEAN CORPUSCULAR VOLUME 96.2 fl (80.0-96.0); MONO # 0.7 10^3/uL (0.0-0.8); MONO % 6.7 % (2.0-8.0); NEUTROPHILS # 8.2 10^3/uL (1.5-8.5); NEUTROPHILS % 83.3 % (36.0-66.0); PLATELET COUNT, AUTOMATED 188 10^3/uL (150-450); RED BLOOD COUNT 3.16 10^6/uL (4.00-5.40); WHITE BLOOD COUNT 9.8 10^3/uL (4.0-10.0)
[2022-10-02 05:57] LABS: CPK CREATINE PHOSPHOKINASE 85 U/L (34-145)
[2022-10-02 06:06] LABS: RSV AMPLIFICATION NEGATIVE (NEGATIVE)
[2022-10-02 06:10] LABS: ALBUMIN 3.1 G/DL (3.2-5.2); ALKALINE PHOSPHATASE 94 U/L (46-116); ALT/SGPT 14 U/L (7.0-40); AST/SGOT 14 U/L (<34); BILIRUBIN,DIRECT < 0.1 MG/DL (<0.4); BILIRUBIN,TOTAL 0.3 MG/DL (0.3-1.2); BLOOD UREA NITROGEN 60 MG/DL (9-23); CALCIUM LEVEL 8.9 MG/DL (8.3-10.6); CARBON DIOXIDE LEVEL 21 MMOL/L (20-31); CHLORIDE LEVEL 97 MMOL/L (98-107); CK-MB VALUE MASS 1.8 NG/ML (<3.6); CREATININE FOR GFR 9.32 MG/DL (0.55-1.30); GLOMERULAR FILTRATION RATE 4.6 (>45); GLUCOSE, FASTING 139 MG/DL (74-106); MB/CK RELATIVE INDEX 2.11 (< OR =4); POTASSIUM SERUM 5.4 MMOL/L (3.5-5.1); SODIUM LEVEL 134 MMOL/L (136-145); TOTAL PROTEIN 6.9 G/DL (5.7-8.2)
[2022-10-02 07:24] LABS: CK-MB VALUE MASS 1.8 NG/ML (<3.6)
[2022-10-02 07:25] LABS: MB/CK RELATIVE INDEX 2.3 (< OR =4)
[2022-10-02] MEDS ORDERED: traMADol 50 MG TAB PO SCH (09:00)
[2022-10-02] MEDS ORDERED: methylPREDNISolone 125MG 2ML VIAL IV ONE (09:40)
[2022-10-02] MEDS ORDERED: AZITHROMYCIN 250MG TABLET PO ONE (09:40)
[2022-10-02] MEDS ORDERED: IPRATROPIUM 0.5MG/ALBUTEROL 2.5MG INH SOL UD 3ML (DUONEB) NEB ONE (09:40)
[2022-10-02] MEDS ORDERED: cefTRIAXone SOD 1 GM in D5W MINI-BAG PLUS 50 ML IV ONE (09:40)
[2022-10-02 10:11] VITALS: O2SAT 100
[2022-10-02] MEDS ORDERED: ATOR1TAB19 PO (10:56)
[2022-10-02] MEDS ORDERED: AMLO1TAB24 PO (10:56)
[2022-10-02] MEDS ORDERED: AMLO1TAB25 PO (10:56)
[2022-10-02] MEDS ORDERED: ATOR40TA75 PO (10:56)
[2022-10-02] MEDS ORDERED: HOME MED LIST COMPLETE! XX SCH (11:05)
[2022-10-02] MEDS ORDERED: HEPARIN 1,000UNITS/ML 10ML VIAL (FOR RADIOLOGY & DIALYSIS ONLY) XX SCH (12:00)
[2022-10-02] MEDS ORDERED: SODIUM CHLORIDE 0.9% 1000ML IV PRN (12:00)
[2022-10-02] MEDS ORDERED: LIDOCAINE 1% SDV 5ML VIAL SC PRN (12:00)
[2022-10-02] MEDS ORDERED: HEPARIN 1,000UNITS/ML 10ML VIAL (FOR RADIOLOGY & DIALYSIS ONLY) IV PRN (12:00)
[2022-10-02] MEDS ORDERED: GLUCAGON INJ 1MG VIAL SC PRN (12:40)
[2022-10-02] MEDS ORDERED: DEXTROSE 50% 50ML SYRINGE IV PRN (12:40)
[2022-10-02] MEDS ORDERED: LIDOCAINE 5% (LIDODERM) PATCH TD ONE (12:40)
[2022-10-02] MEDS ORDERED: GLUCOSE 4GM CHEW TABLET PO PRN (12:40)
[2022-10-02] MEDS ORDERED: traMADol 50 MG TAB PO ONE (15:20)
[2022-10-02 17:15] VITALS: BP 169/82
[2022-10-02] MEDS: FUROSEMIDE 40 MG TAB PO SCH (17:25)
[2022-10-02] MEDS: INSULIN LISPRO (NovoLOG) PER UNIT SC SCH ×2 (18:20→21:26)
[2022-10-02 20:00] VITALS: BP 138/68
[2022-10-02] MEDS: DULoxetine 30MG CAPSULE (CYMBALTA) PO SCH (21:25)
[2022-10-02] MEDS: LEVEMIR (INSULIN DETEMIR) 1 UNITS/0.01ML SC SCH (21:26)
[2022-10-02] MEDS: METOPROLOL SUCC (TopROL XL) 50MG **XL** TAB PO SCH (21:26)
[2022-10-03] MEDS: traMADol 50 MG TAB PO SCH ×3 (00:53→20:29)
[2022-10-03 06:00] VITALS: BP 158/60
[2022-10-03] MEDS: LEVOTHYROXINE 100MCG TABLET (0.1MG) PO SCH (06:20)
[2022-10-03] MEDS: LEVOTHYROXINE 75MCG TABLET (0.075MG) PO SCH (06:20)
[2022-10-03 06:37] LABS: HEMATOCRIT 28.5 % (36.0-47.0); HEMOGLOBIN 8.9 g/dl (12.0-15.5); MEAN CORPUSCULAR HEMOGLOBIN 30.1 pg (27.0-33.0); MEAN CORPUSCULAR HGB CONC 31.2 g/dl (32.0-36.5); MEAN CORPUSCULAR VOLUME 96.3 fl (80.0-96.0); PLATELET COUNT, AUTOMATED 232 10^3/uL (150-450); RED BLOOD COUNT 2.96 10^6/uL (4.00-5.40); WHITE BLOOD COUNT 13.6 10^3/uL (4.0-10.0)
[2022-10-03 06:59] LABS: CALCIUM LEVEL 9.7 MG/DL (8.3-10.6); CREATININE FOR GFR 6.23 MG/DL (0.55-1.30); GLOMERULAR FILTRATION RATE 7.3 (>45); POTASSIUM SERUM 4.7 MMOL/L (3.5-5.1)
[2022-10-03] MEDS: HEPARIN SOD (PORCINE) 5000UNITS/ML 1ML VIAL/SYRINGE SQ SCH ×2 (08:14→20:28)
[2022-10-03] MEDS: CINACALCET 30 MG TAB (SENSIPAR) PO SCH (08:15)
[2022-10-03] MEDS: ATORVASTATIN 20 MG TAB PO SCH (08:15)
[2022-10-03] MEDS: INSULIN LISPRO (NovoLOG) PER UNIT SC SCH ×4 (08:15→20:28)
[2022-10-03] MEDS: ATORVASTATIN 10 MG TAB PO SCH (08:16)
[2022-10-03] MEDS: CETIRIZINE (ZyrTEC) 10 MG TAB PO SCH (08:17)
[2022-10-03] MEDS: amLODIPine 5 MG TAB PO SCH (08:18)
[2022-10-03] MEDS: FUROSEMIDE 40 MG TAB PO SCH ×2 (08:18→17:38)
[2022-10-03 14:00] VITALS: BP 170/77
[2022-10-03 19:58] VITALS: BP 118/70
[2022-10-03] MEDS: DULoxetine 30MG CAPSULE (CYMBALTA) PO SCH (20:27)
[2022-10-03] MEDS: METOPROLOL SUCC (TopROL XL) 50MG **XL** TAB PO SCH (20:27)
[2022-10-03] MEDS: LEVEMIR (INSULIN DETEMIR) 1 UNITS/0.01ML SC SCH (20:28)
[2022-10-03] MEDS ORDERED: LIDOCAINE 5% (LIDODERM) PATCH TD SCH (21:00)
[2022-10-04 05:18] VITALS: BP 158/60
[2022-10-04] MEDS ORDERED: SODIUM CHLORIDE 0.9% 1000ML IV PRN (06:00)
[2022-10-04] MEDS ORDERED: DARBEPOETIN 100MCG/0.5ML *DIALYSIS* SYRINGE IV SCH (06:00)
[2022-10-04] MEDS ORDERED: EMLA CREAM 5GM TUBE (LIDOCAINE/PRILOCAINE) TOP SCH (06:00)
[2022-10-04] MEDS ORDERED: HEPARIN 1,000UNITS/ML 10ML VIAL (FOR RADIOLOGY & DIALYSIS ONLY) IV PRN (06:00)
[2022-10-04] MEDS ORDERED: HEPARIN 1,000UNITS/ML 10ML VIAL (FOR RADIOLOGY & DIALYSIS ONLY) XX SCH (06:00)
[2022-10-04] MEDS: LEVOTHYROXINE 75MCG TABLET (0.075MG) PO SCH (06:40)
[2022-10-04] MEDS: FUROSEMIDE 40 MG TAB PO SCH (06:41)
[2022-10-04] MEDS: LEVOTHYROXINE 100MCG TABLET (0.1MG) PO SCH (06:41)
[2022-10-04] MEDS: ATORVASTATIN 10 MG TAB PO SCH (06:41)
[2022-10-04] MEDS: ATORVASTATIN 20 MG TAB PO SCH (06:41)
[2022-10-04 06:42] VITALS: BP 158/60
[2022-10-04] MEDS: amLODIPine 5 MG TAB PO SCH (06:42)
[2022-10-04] MEDS: CETIRIZINE (ZyrTEC) 10 MG TAB PO SCH (06:42)
[2022-10-04] MEDS: CINACALCET 30 MG TAB (SENSIPAR) PO SCH (06:42)
[2022-10-04] MEDS: HEPARIN SOD (PORCINE) 5000UNITS/ML 1ML VIAL/SYRINGE SQ SCH (06:43)
[2022-10-04] MEDS: traMADol 50 MG TAB PO SCH (06:44)
[2022-10-04] MEDS: INSULIN LISPRO (NovoLOG) PER UNIT SC SCH ×2 (07:30→13:13)
[2022-10-04] MEDS ORDERED: LIDOCAINE 5% (LIDODERM) PATCH TD SCH (09:00)
[2022-10-04 10:19] LABS: BASO # 0.1 10^3/uL (0.0-0.2); BASO % 0.5 % (0.0-1.0); EOS # 0.2 10^3/uL (0.0-0.5); EOS % 1.6 % (0.0-3.0); HEMATOCRIT 27.7 % (36.0-47.0); HEMOGLOBIN 8.7 g/dl (12.0-15.5); LYMPH # 1.3 10^3/uL (1.5-5.0); LYMPH % 12.2 % (24.0-44.0); MEAN CORPUSCULAR HGB CONC 31.4 g/dl (32.0-36.5); MEAN CORPUSCULAR VOLUME 95.5 fl (80.0-96.0); MONO # 0.9 10^3/uL (0.0-0.8); NEUTROPHILS # 8.2 10^3/uL (1.5-8.5); NEUTROPHILS % 76.4 % (36.0-66.0); PLATELET COUNT, AUTOMATED 206 10^3/uL (150-450); WHITE BLOOD COUNT 10.7 10^3/uL (4.0-10.0)
[2022-10-04 11:57] LABS: CALCIUM LEVEL 8.5 MG/DL (8.3-10.6); CREATININE FOR GFR 4.45 MG/DL (0.55-1.30); GLOMERULAR FILTRATION RATE 10.7 (>45); POTASSIUM SERUM 3.5 MMOL/L (3.5-5.1)
[2022-10-04] MEDS ORDERED: TOUJ1.2I SC (12:55)
[2022-10-04] MEDS ORDERED: LEVEMIR (INSULIN DETEMIR) 1 UNITS/0.01ML SC SCH (21:00)
== END 2022-10-04 14:16 | disposition home or self-care (01) | DRG 194 ==
LOC: M ED 04:32 → M ED INP 11:15 → ENRESERV 11:34 → M MSPAV 17:01
PROVIDERS: ADMIT Internal Medicine Nephrology; ATTEND Internal Medicine Nephrology
PROC: 5A1D70Z Performance of Urinary Filtration, Intermittent, Less than 6 Hours Per Day (ICD-10-PCS; principal; 2022-10-04)
DX: I13.2 Hypertensive heart and chronic kidney disease with heart failure and with stage 5 chronic kidney disease, or end stage renal disease (principal); N18.6 End stage renal disease; J96.10 Chronic respiratory failure, unspecified whether with hypoxia or hypercapnia; N25.81 Secondary hyperparathyroidism of renal origin; E11.22 Type 2 diabetes mellitus with diabetic chronic kidney disease; I27.21 Secondary pulmonary arterial hypertension; J43.9 Emphysema, unspecified; J81.1 Chronic pulmonary edema; Z99.81 Dependence on supplemental oxygen; E66.01 Morbid (severe) obesity due to excess calories; E87.5 Hyperkalemia; K76.0 Fatty (change of) liver, not elsewhere classified; I08.0 Rheumatic disorders of both mitral and aortic valves; F17.200 Nicotine dependence, unspecified, uncomplicated; E78.5 Hyperlipidemia, unspecified; E03.9 Hypothyroidism, unspecified; F32.A Depression, unspecified; I25.10 Atherosclerotic heart disease of native coronary artery without angina pectoris; E55.9 Vitamin D deficiency, unspecified; G47.33 Obstructive sleep apnea (adult) (pediatric); M51.36 Other intervertebral disc degeneration, lumbar region; G89.29 Other chronic pain; K21.9 Gastro-esophageal reflux disease without esophagitis; Z90.79 Acquired absence of other genital organ(s); Z90.49 Acquired absence of other specified parts of digestive tract; Z20.822 Contact with and (suspected) exposure to COVID-19; Z79.4 Long term (current) use of insulin; Z79.890 Hormone replacement therapy; Z79.899 Other long term (current) drug therapy; Z88.2 Allergy status to sulfonamides; Z88.5 Allergy status to narcotic agent; Z88.8 Allergy status to other drugs, medicaments and biological substances; Z88.6 Allergy status to analgesic agent; Z99.2 Dependence on renal dialysis; I50.23 Acute on chronic systolic (congestive) heart failure

== ENCOUNTER 2022-12-10 16:11 | Inpatient (IN) | payer OTHER ==
[~2022-12-10] VITALS: Ht 170.2 cm; Wt 107.7 kg
[~2022-12-10 16:11] MED LIST changes: -COZA50TA PO; +LOSA-528 PO
[2022-12-10] MEDS ORDERED: IPRATROPIUM 0.5MG/ALBUTEROL 2.5MG INH SOL UD 3ML (DUONEB) NEB ONE (17:05)
[2022-12-10] MEDS ORDERED: methylPREDNISolone 125MG 2ML VIAL IV ONE (17:05)
[2022-12-10] MEDS ORDERED: ALBUTEROL SULFATE 2.5MG/0.5ML INH NEB SOLN INH ONE (17:05)
[2022-12-10 17:20] LABS: BASO % 0.4 % (0.0-1.0); EOS # 0.1 10^3/uL (0.0-0.5); EOS % 1.3 % (0.0-3.0); HEMATOCRIT 27.6 % (36.0-47.0); HEMOGLOBIN 8.4 g/dl (12.0-15.5); LYMPH # 0.6 10^3/uL (1.5-5.0); LYMPH % 5.8 % (24.0-44.0); MEAN CORPUSCULAR HEMOGLOBIN 27.9 pg (27.0-33.0); MEAN CORPUSCULAR HGB CONC 30.4 g/dl (32.0-36.5); MEAN CORPUSCULAR VOLUME 91.7 fl (80.0-96.0); MONO # 0.5 10^3/uL (0.0-0.8); MONO % 5.5 % (2.0-8.0); NEUTROPHILS # 8.5 10^3/uL (1.5-8.5); NEUTROPHILS % 86.4 % (36.0-66.0); PLATELET COUNT, AUTOMATED 197 10^3/uL (150-450); RED BLOOD COUNT 3.01 10^6/uL (4.00-5.40); WHITE BLOOD COUNT 9.8 10^3/uL (4.0-10.0)
[2022-12-10 18:04] LABS: PROCALCITONIN 1.08 ng/ml
[2022-12-10 18:10] LABS: ALBUMIN 2.9 G/DL (3.2-5.2); ALKALINE PHOSPHATASE 100 U/L (46-116); ALT/SGPT < 9 U/L (7.0-40); AST/SGOT 10 U/L (<34); BILIRUBIN,DIRECT 0.1 MG/DL (<0.4); BILIRUBIN,TOTAL 0.5 MG/DL (0.3-1.2); BLOOD UREA NITROGEN 62 MG/DL (9-23); CALCIUM LEVEL 8.8 MG/DL (8.3-10.6); CARBON DIOXIDE LEVEL 24 MMOL/L (20-31); CHLORIDE LEVEL 96 MMOL/L (98-107); CK-MB VALUE MASS 1.8 NG/ML (<3.6); CPK CREATINE PHOSPHOKINASE 41 U/L (34-145); CREATININE FOR GFR 9.77 MG/DL (0.55-1.30); GLOMERULAR FILTRATION RATE 4.3 (>45); GLUCOSE, FASTING 115 MG/DL (74-106); MB/CK RELATIVE INDEX 4.39 (< OR =4); POTASSIUM SERUM 5.7 MMOL/L (3.5-5.1); SODIUM LEVEL 132 MMOL/L (136-145); THYROID STIMULATING HORMONE 2.649 uIU/ML (0.55-4.78); THYROXINE (T4) 10.8 UG/DL (4.5-10.9); TOTAL PROTEIN 6.6 G/DL (5.7-8.2)
[2022-12-10] MEDS ORDERED: FUROSEMIDE 100MG/10ML VIAL IV ONE (18:10)
[2022-12-10] MEDS ORDERED: MED REC IN PROGRESS XX SCH (19:15)
[2022-12-10] MEDS ORDERED: NITROGLYCERIN 2% OINT 1 GM *U/D* PKT TOP ONE (20:20)
[2022-12-10] MEDS: INSULIN LISPRO (NovoLOG) PER UNIT SC SCH (21:00)
[2022-12-10] MEDS ORDERED: LEVEMIR (INSULIN DETEMIR) 1 UNITS/0.01ML SC SCH (21:00)
[2022-12-10] MEDS ORDERED: ALBUTEROL SULFATE 2.5MG/0.5ML INH NEB SOLN NEB PRN (21:30)
[2022-12-10] MEDS ORDERED: DEXTROSE 50% 50ML SYRINGE IV PRN (21:40)
[2022-12-10] MEDS ORDERED: GLUCAGON INJ 1MG VIAL SC PRN (21:40)
[2022-12-10] MEDS ORDERED: GLUCOSE 4GM CHEW TABLET PO PRN (21:40)
[2022-12-10] MEDS ORDERED: LIDO5TD TOP (21:45)
[2022-12-10] MEDS ORDERED: HYDR-3363 PO (21:45)
[2022-12-10] MEDS ORDERED: RENV2.4P PO (21:45)
[2022-12-10] MEDS ORDERED: VENL75CA47 PO (21:45)
[2022-12-10] MEDS ORDERED: HOME MED LIST COMPLETE! XX SCH (21:45)
[2022-12-10] MEDS ORDERED: TOUJ1.2I SC (21:45)
[2022-12-10] MEDS ORDERED: CLOB-25 TOP (21:45)
[2022-12-10] MEDS ORDERED: TRAM1CAP15 PO (21:45)
[2022-12-10] MEDS ORDERED: HYDR10TAB PO (21:45)
[2022-12-10 21:59] VITALS: BP 181/79; TEMP 97.6; O2SAT 92
[2022-12-10] MEDS ORDERED: FLUTICASONE PROP 0.05% NASAL SPRAY 16 GM (FLONASE) NARES PRN (22:25)
[2022-12-10] MEDS ORDERED: NYSTATIN 100,000 UNITS/GM TOPICAL PWD 15GM TOP PRN (22:25)
[2022-12-10] MEDS ORDERED: PATIROMER SORBITEX CALCIUM 8.4 GM POWDER PACKET (VELTASSA) PO ONE (22:35)
[2022-12-10] MEDS ORDERED: PILL CUTTER 1 EACH XX PRN (22:50)
[2022-12-10] MEDS: tiZANidine 4 MG TAB PO SCH (23:04)
[2022-12-10] MEDS: METOPROLOL SUCC (TopROL XL) 50MG **XL** TAB PO SCH (23:04)
[2022-12-10] MEDS: **hydrALAZINE** 10 MG TAB PO SCH (23:05)
[2022-12-10] MEDS: traMADol ER 100MG TABLET (ULTRAM ER) PO SCH (23:18)
[2022-12-11] VITALS (12 sets, daily range): BP systolic 153–183; BP diastolic 71–86; TEMP 96.6–97.7; O2SAT 89–95
[2022-12-11] MEDS: CLOBETASOL PROP 0.05% OINT 30 GM TOP PRN (01:12)
[2022-12-11 01:22] LABS: ABG BASE EXCESS -0.3 (-2.0-2.0); ABG HCO3 23.9 MMOL/L (22.0-26.0); ABG O2 SATURATION 92.7 % (95.0-99.0); ABG PARTIAL PRESSURE CO2 37.1 mmHg (35.0-45.0); ABG PARTIAL PRESSURE O2 71.5 mmHg (75.0-100.0); ABG STANDARD HCO3 24.2 MMOL/L. (22.0-26.0); ABG pH (ARTERIAL) 7.427 UNITS (7.350-7.450)
[2022-12-11] MEDS: IPRATROPIUM 0.5MG/ALBUTEROL 2.5MG INH SOL UD 3ML (DUONEB) NEB SCH ×7 (01:27→23:08)
[2022-12-11] MEDS ORDERED: ACETAMINOPHEN TAB 650MG DOSE (2X325MG) PO ONE (03:00)
[2022-12-11 05:40] LABS: HEMATOCRIT 28.2 % (36.0-47.0); HEMOGLOBIN 8.7 g/dl (12.0-15.5)
[2022-12-11 06:13] LABS: CALCIUM LEVEL 9.4 MG/DL (8.3-10.6); CREATININE FOR GFR 10.6 MG/DL (0.55-1.30); FERRITIN 767.2 NG/ML (7.3-270.7); GLOMERULAR FILTRATION RATE 3.9 (>45); MAGNESIUM LEVEL 2.2 MG/DL (1.8-2.4); PHOSPHORUS LEVEL 10.1 MG/DL (2.4-5.1); POTASSIUM SERUM 6.1 MMOL/L (3.5-5.1)
[2022-12-11] MEDS: LEVOTHYROXINE 125MCG TABLET (0.125MG) PO SCH (06:34)
[2022-12-11] MEDS: LEVOTHYROXINE 50MCG TABLET (0.05MG) PO SCH (06:34)
[2022-12-11] MEDS: HEPARIN SOD (PORCINE) 5000UNITS/ML 1ML VIAL/SYRINGE SC SCH ×3 (06:34→20:56)
[2022-12-11] MEDS: EMLA CREAM 5GM TUBE (LIDOCAINE/PRILOCAINE) TOP SCH (08:10)
[2022-12-11] MEDS: LIDOCAINE 5% (LIDODERM) PATCH TOP SCH (08:10)
[2022-12-11] MEDS: ATORVASTATIN 20 MG TAB PO SCH (08:11)
[2022-12-11] MEDS: INSULIN LISPRO (NovoLOG) PER UNIT SC SCH ×4 (08:11→20:43)
[2022-12-11] MEDS: **hydrALAZINE** 10 MG TAB PO SCH ×2 (08:12→20:55)
[2022-12-11] MEDS: FUROSEMIDE 40MG/4ML VIAL IV SCH (08:12)
[2022-12-11] MEDS: CETIRIZINE (ZyrTEC) 10 MG TAB PO SCH (08:12)
[2022-12-11] MEDS: VENLAFAXINE **XR** 75MG CAPSULE PO SCH (08:12)
[2022-12-11] MEDS ORDERED: HEPARIN 1,000UNITS/ML 10ML VIAL (FOR RADIOLOGY & DIALYSIS ONLY) XX SCH (08:30)
[2022-12-11] MEDS ORDERED: HEPARIN 1,000UNITS/ML 10ML VIAL (FOR RADIOLOGY & DIALYSIS ONLY) IV PRN (08:30)
[2022-12-11] MEDS ORDERED: SODIUM CHLORIDE 0.9% 1000ML IV PRN (08:30)
[2022-12-11] MEDS ORDERED: LIDOCAINE 1% SDV 5ML VIAL SC PRN (08:30)
[2022-12-11] MEDS: CINACALCET 30 MG TAB (SENSIPAR) PO SCH (13:17)
[2022-12-11] MEDS: ACETAMINOPHEN TAB 650MG DOSE (2X325MG) PO PRN (17:09)
[2022-12-11] MEDS ORDERED: hydrALAZINE 20MG/ML 1ML VIAL IV PRN (17:55)
[2022-12-11 20:32] LABS: ALBUMIN 3.2 G/DL (3.2-5.2); BILIRUBIN,TOTAL 0.4 MG/DL (0.3-1.2); CALCIUM LEVEL 10.1 MG/DL (8.3-10.6); CREATININE FOR GFR 6.54 MG/DL (0.55-1.30); GLOMERULAR FILTRATION RATE 6.9 (>45); POTASSIUM SERUM 4.7 MMOL/L (3.5-5.1); TOTAL PROTEIN 7.2 G/DL (5.7-8.2)
[2022-12-11] MEDS: LEVEMIR (INSULIN DETEMIR) 1 UNITS/0.01ML SC SCH (20:54)
[2022-12-11] MEDS: traMADol ER 100MG TABLET (ULTRAM ER) PO SCH (20:54)
[2022-12-11] MEDS: METOPROLOL SUCC (TopROL XL) 50MG **XL** TAB PO SCH (20:55)
[2022-12-11] MEDS: tiZANidine 4 MG TAB PO SCH (20:56)
[2022-12-12 00:22] VITALS: BP 143/71; TEMP 97.3; O2SAT 92
[2022-12-12] MEDS: ACETAMINOPHEN TAB 650MG DOSE (2X325MG) PO PRN (01:26)
[2022-12-12] MEDS: IPRATROPIUM 0.5MG/ALBUTEROL 2.5MG INH SOL UD 3ML (DUONEB) NEB SCH ×6 (03:05→23:05)
[2022-12-12 04:22] VITALS: BP 168/79; TEMP 98.3; O2SAT 96
[2022-12-12] MEDS: LEVOTHYROXINE 50MCG TABLET (0.05MG) PO SCH (05:22)
[2022-12-12] MEDS: HEPARIN SOD (PORCINE) 5000UNITS/ML 1ML VIAL/SYRINGE SC SCH ×3 (05:22→21:42)
[2022-12-12] MEDS: LEVOTHYROXINE 125MCG TABLET (0.125MG) PO SCH (05:22)
[2022-12-12] MEDS ORDERED: LIDOCAINE 1% SDV 5ML VIAL SC PRN (06:00)
[2022-12-12] MEDS ORDERED: HEPARIN 1,000UNITS/ML 10ML VIAL (FOR RADIOLOGY & DIALYSIS ONLY) XX SCH (06:00)
[2022-12-12] MEDS ORDERED: HEPARIN 1,000UNITS/ML 10ML VIAL (FOR RADIOLOGY & DIALYSIS ONLY) IV PRN (06:00)
[2022-12-12] MEDS ORDERED: SODIUM CHLORIDE 0.9% 1000ML IV PRN (06:00)
[2022-12-12 06:13] LABS: HEMATOCRIT 26.8 % (36.0-47.0); MEAN CORPUSCULAR HEMOGLOBIN 27.7 pg (27.0-33.0); MEAN CORPUSCULAR HGB CONC 29.9 g/dl (32.0-36.5); MEAN CORPUSCULAR VOLUME 92.7 fl (80.0-96.0); PLATELET COUNT, AUTOMATED 208 10^3/uL (150-450); RED BLOOD COUNT 2.89 10^6/uL (4.00-5.40)
[2022-12-12 06:34] LABS: ALBUMIN 2.8 G/DL (3.2-5.2); ALKALINE PHOSPHATASE 113 U/L (46-116); ALT/SGPT < 9 U/L (7.0-40); AST/SGOT < 8 U/L (<34); BILIRUBIN,TOTAL 0.4 MG/DL (0.3-1.2); BLOOD UREA NITROGEN 46 MG/DL (9-23); CALCIUM LEVEL 9.7 MG/DL (8.3-10.6); CARBON DIOXIDE LEVEL 28 MMOL/L (20-31); CHLORIDE LEVEL 100 MMOL/L (98-107); CREATININE FOR GFR 7.65 MG/DL (0.55-1.30); GLOMERULAR FILTRATION RATE 5.7 (>45); GLUCOSE, FASTING 113 MG/DL (74-106); POTASSIUM SERUM 4.6 MMOL/L (3.5-5.1); SODIUM LEVEL 135 MMOL/L (136-145); TOTAL PROTEIN 6.4 G/DL (5.7-8.2)
[2022-12-12] MEDS: INSULIN LISPRO (NovoLOG) PER UNIT SC SCH ×4 (07:30→21:00)
[2022-12-12] MEDS: **hydrALAZINE** 10 MG TAB PO SCH ×3 (09:00→21:40)
[2022-12-12 12:03] VITALS: BP 156/78; TEMP 96.8; O2SAT 99
[2022-12-12] MEDS: VENLAFAXINE **XR** 75MG CAPSULE PO SCH (12:27)
[2022-12-12] MEDS: CETIRIZINE (ZyrTEC) 10 MG TAB PO SCH (12:28)
[2022-12-12] MEDS: metOLazone 5 MG TAB PO SCH (12:28)
[2022-12-12] MEDS: CINACALCET 30 MG TAB (SENSIPAR) PO SCH (12:28)
[2022-12-12] MEDS: ATORVASTATIN 20 MG TAB PO SCH (12:28)
[2022-12-12] MEDS: FUROSEMIDE 40MG/4ML VIAL IV SCH (12:29)
[2022-12-12] MEDS: LIDOCAINE 5% (LIDODERM) PATCH TOP SCH (12:29)
[2022-12-12 17:11] VITALS: BP 220/90
[2022-12-12 17:21] VITALS: BP 160/78; TEMP 97.8; O2SAT 93
[2022-12-12 19:54] VITALS: BP 134/62; TEMP 98.2; O2SAT 92
[2022-12-12] MEDS: traMADol ER 100MG TABLET (ULTRAM ER) PO SCH (21:39)
[2022-12-12] MEDS: METOPROLOL SUCC (TopROL XL) 50MG **XL** TAB PO SCH (21:39)
[2022-12-12] MEDS: tiZANidine 4 MG TAB PO SCH (21:40)
[2022-12-12] MEDS: LEVEMIR (INSULIN DETEMIR) 1 UNITS/0.01ML SC SCH (21:42)
[2022-12-12] MEDS: CLOBETASOL PROP 0.05% OINT 30 GM TOP PRN (21:43)
[2022-12-13] MEDS: IPRATROPIUM 0.5MG/ALBUTEROL 2.5MG INH SOL UD 3ML (DUONEB) NEB SCH ×5 (03:06→19:39)
[2022-12-13 03:34] VITALS: BP 162/74; TEMP 97.8; O2SAT 92
[2022-12-13] MEDS: LEVOTHYROXINE 125MCG TABLET (0.125MG) PO SCH (04:59)
[2022-12-13] MEDS: LEVOTHYROXINE 50MCG TABLET (0.05MG) PO SCH (04:59)
[2022-12-13] MEDS: HEPARIN SOD (PORCINE) 5000UNITS/ML 1ML VIAL/SYRINGE SC SCH ×3 (05:00→21:33)
[2022-12-13] MEDS ORDERED: HEPARIN 1,000UNITS/ML 10ML VIAL (FOR RADIOLOGY & DIALYSIS ONLY) XX SCH (06:00)
[2022-12-13] MEDS ORDERED: HEPARIN 1,000UNITS/ML 10ML VIAL (FOR RADIOLOGY & DIALYSIS ONLY) IV PRN (06:00)
[2022-12-13] MEDS ORDERED: SODIUM CHLORIDE 0.9% 1000ML IV PRN (06:00)
[2022-12-13 06:29] LABS: HEMATOCRIT 29.2 % (36.0-47.0); HEMOGLOBIN 8.8 g/dl (12.0-15.5); MEAN CORPUSCULAR HEMOGLOBIN 27.9 pg (27.0-33.0); MEAN CORPUSCULAR HGB CONC 30.1 g/dl (32.0-36.5); MEAN CORPUSCULAR VOLUME 92.7 fl (80.0-96.0); PLATELET COUNT, AUTOMATED 231 10^3/uL (150-450); RED BLOOD COUNT 3.15 10^6/uL (4.00-5.40); WHITE BLOOD COUNT 9.6 10^3/uL (4.0-10.0)
[2022-12-13 06:53] LABS: ALBUMIN 2.9 G/DL (3.2-5.2); ALKALINE PHOSPHATASE 124 U/L (46-116); ALT/SGPT < 9 U/L (7.0-40); AST/SGOT 9 U/L (<34); BILIRUBIN,TOTAL 0.3 MG/DL (0.3-1.2); BLOOD UREA NITROGEN 34 MG/DL (9-23); CALCIUM LEVEL 10.1 MG/DL (8.3-10.6); CARBON DIOXIDE LEVEL 29 MMOL/L (20-31); CHLORIDE LEVEL 99 MMOL/L (98-107); CREATININE FOR GFR 5.79 MG/DL (0.55-1.30); GLOMERULAR FILTRATION RATE 7.9 (>45); GLUCOSE, FASTING 134 MG/DL (74-106); POTASSIUM SERUM 4.4 MMOL/L (3.5-5.1); SODIUM LEVEL 135 MMOL/L (136-145); TOTAL PROTEIN 6.7 G/DL (5.7-8.2)
[2022-12-13] MEDS: INSULIN LISPRO (NovoLOG) PER UNIT SC SCH ×4 (07:29→21:00)
[2022-12-13] MEDS: **hydrALAZINE** 10 MG TAB PO SCH ×3 (09:00→21:34)
[2022-12-13] MEDS: ACETAMINOPHEN TAB 650MG DOSE (2X325MG) PO PRN (11:06)
[2022-12-13] MEDS: FUROSEMIDE 40MG/4ML VIAL IV SCH (12:09)
[2022-12-13] MEDS: CETIRIZINE (ZyrTEC) 10 MG TAB PO SCH (12:10)
[2022-12-13] MEDS: LIDOCAINE 5% (LIDODERM) PATCH TOP SCH (12:12)
[2022-12-13 12:15] VITALS: BP 157/85; TEMP 97.2; O2SAT 97
[2022-12-13] MEDS: VENLAFAXINE **XR** 75MG CAPSULE PO SCH (12:17)
[2022-12-13] MEDS: CINACALCET 30 MG TAB (SENSIPAR) PO SCH (12:19)
[2022-12-13] MEDS: ATORVASTATIN 20 MG TAB PO SCH (12:19)
[2022-12-13] MEDS: (RENVELA) SEVELAMER **CARBONate** 800 MG TAB PO SCH ×2 (12:20→18:00)
[2022-12-13 14:00] VITALS: BP 157/83; TEMP 97.7; O2SAT 94
[2022-12-13] MEDS ORDERED: TRAM1CAP15 PO ×2 (16:06→17:15)
[2022-12-13] MEDS ORDERED: traMADol ER 100MG TABLET (ULTRAM ER) PO PRN (17:05)
[2022-12-13] MEDS ORDERED: TRAM50TA2 PO (17:14)
[2022-12-13] MEDS: traMADol 50 MG TAB PO PRN (18:39)
[2022-12-13 20:13] VITALS: BP 145/67; TEMP 97.9; O2SAT 97
[2022-12-13] MEDS: LEVEMIR (INSULIN DETEMIR) 1 UNITS/0.01ML SC SCH (21:32)
[2022-12-13] MEDS: RAMELTEON 8 MG TAB (ROZEREM) PO SCH (21:33)
[2022-12-13] MEDS: METOPROLOL SUCC (TopROL XL) 50MG **XL** TAB PO SCH (21:33)
[2022-12-13] MEDS: tiZANidine 4 MG TAB PO SCH (21:35)
[2022-12-13] MEDS: traMADol ER 100MG TABLET (ULTRAM ER) PO SCH (22:43)
[2022-12-14] MEDS: IPRATROPIUM 0.5MG/ALBUTEROL 2.5MG INH SOL UD 3ML (DUONEB) NEB SCH ×7 (00:09→23:17)
[2022-12-14 05:38] VITALS: BP 152/70; TEMP 97.9; O2SAT 93
[2022-12-14] MEDS ORDERED: SODIUM CHLORIDE 0.9% 1000ML IV PRN (06:00)
[2022-12-14] MEDS ORDERED: HEPARIN 1,000UNITS/ML 10ML VIAL (FOR RADIOLOGY & DIALYSIS ONLY) XX SCH (06:00)
[2022-12-14 06:07] LABS: HEMATOCRIT 29.6 % (36.0-47.0); MEAN CORPUSCULAR HEMOGLOBIN 27.9 pg (27.0-33.0); MEAN CORPUSCULAR HGB CONC 30.4 g/dl (32.0-36.5); MEAN CORPUSCULAR VOLUME 91.6 fl (80.0-96.0); PLATELET COUNT, AUTOMATED 224 10^3/uL (150-450); RED BLOOD COUNT 3.23 10^6/uL (4.00-5.40); WHITE BLOOD COUNT 10.4 10^3/uL (4.0-10.0)
[2022-12-14 06:22] LABS: ALBUMIN 3.1 G/DL (3.2-5.2); ALKALINE PHOSPHATASE 139 U/L (46-116); ALT/SGPT 11 U/L (7.0-40); AST/SGOT < 8 U/L (<34); BILIRUBIN,TOTAL 0.2 MG/DL (0.3-1.2); BLOOD UREA NITROGEN 29 MG/DL (9-23); CALCIUM LEVEL 9.4 MG/DL (8.3-10.6); CARBON DIOXIDE LEVEL 29 MMOL/L (20-31); CHLORIDE LEVEL 99 MMOL/L (98-107); GLOMERULAR FILTRATION RATE 9.4 (>45); GLUCOSE, FASTING 133 MG/DL (74-106); POTASSIUM SERUM 4.1 MMOL/L (3.5-5.1); SODIUM LEVEL 135 MMOL/L (136-145); TOTAL PROTEIN 6.7 G/DL (5.7-8.2)
[2022-12-14] MEDS: LEVOTHYROXINE 125MCG TABLET (0.125MG) PO SCH (06:43)
[2022-12-14] MEDS: traMADol 50 MG TAB PO PRN ×2 (06:43→17:07)
[2022-12-14] MEDS: LEVOTHYROXINE 50MCG TABLET (0.05MG) PO SCH (06:43)
[2022-12-14] MEDS: HEPARIN SOD (PORCINE) 5000UNITS/ML 1ML VIAL/SYRINGE SC SCH ×3 (06:44→21:40)
[2022-12-14] MEDS: LIDOCAINE 5% (LIDODERM) PATCH TOP SCH (07:13)
[2022-12-14] MEDS: INSULIN LISPRO (NovoLOG) PER UNIT SC SCH ×4 (07:23→21:00)
[2022-12-14] MEDS: FUROSEMIDE 40MG/4ML VIAL IV SCH (07:24)
[2022-12-14] MEDS: VENLAFAXINE **XR** 75MG CAPSULE PO SCH (07:24)
[2022-12-14] MEDS: ATORVASTATIN 20 MG TAB PO SCH (07:25)
[2022-12-14] MEDS: **hydrALAZINE** 10 MG TAB PO SCH ×3 (07:25→21:37)
[2022-12-14] MEDS: metOLazone 5 MG TAB PO SCH (07:25)
[2022-12-14] MEDS: CETIRIZINE (ZyrTEC) 10 MG TAB PO SCH (07:25)
[2022-12-14] MEDS: CINACALCET 30 MG TAB (SENSIPAR) PO SCH (07:26)
[2022-12-14] MEDS: ACETAMINOPHEN TAB 650MG DOSE (2X325MG) PO PRN (07:26)
[2022-12-14] MEDS: (RENVELA) SEVELAMER **CARBONate** 800 MG TAB PO SCH ×3 (08:00→18:00)
[2022-12-14] MEDS ORDERED: ONDANSETRON 4MG 2ML VIAL IV PRN (13:50)
[2022-12-14 14:30] VITALS: BP 159/83; TEMP 97.1; O2SAT 92
[2022-12-14 20:00] VITALS: BP 127/57; TEMP 97.5; O2SAT 93
[2022-12-14 21:28] VITALS: BP 152/70
[2022-12-14] MEDS: tiZANidine 4 MG TAB PO SCH (21:36)
[2022-12-14] MEDS: RAMELTEON 8 MG TAB (ROZEREM) PO SCH (21:37)
[2022-12-14] MEDS: METOPROLOL SUCC (TopROL XL) 50MG **XL** TAB PO SCH (21:38)
[2022-12-14] MEDS: LEVEMIR (INSULIN DETEMIR) 1 UNITS/0.01ML SC SCH (21:38)
[2022-12-14] MEDS: traMADol ER 100MG TABLET (ULTRAM ER) PO SCH (21:40)
[2022-12-14] MEDS: CLOBETASOL PROP 0.05% OINT 30 GM TOP PRN (21:44)
[2022-12-15] MEDS: IPRATROPIUM 0.5MG/ALBUTEROL 2.5MG INH SOL UD 3ML (DUONEB) NEB SCH ×6 (03:09→23:26)
[2022-12-15 06:00] VITALS: BP 123/58; TEMP 97.7; O2SAT 95
[2022-12-15 06:09] LABS: HEMATOCRIT 30.8 % (36.0-47.0); HEMOGLOBIN 9.2 g/dl (12.0-15.5); MEAN CORPUSCULAR HEMOGLOBIN 27.9 pg (27.0-33.0); MEAN CORPUSCULAR HGB CONC 29.9 g/dl (32.0-36.5); MEAN CORPUSCULAR VOLUME 93.3 fl (80.0-96.0); PLATELET COUNT, AUTOMATED 190 10^3/uL (150-450); WHITE BLOOD COUNT 11.1 10^3/uL (4.0-10.0)
[2022-12-15] MEDS: (RENVELA) SEVELAMER **CARBONate** 800 MG TAB PO SCH ×3 (06:14→17:40)
[2022-12-15] MEDS: LEVOTHYROXINE 125MCG TABLET (0.125MG) PO SCH (06:14)
[2022-12-15] MEDS: ATORVASTATIN 20 MG TAB PO SCH (06:14)
[2022-12-15] MEDS: LEVOTHYROXINE 50MCG TABLET (0.05MG) PO SCH (06:14)
[2022-12-15] MEDS: CINACALCET 30 MG TAB (SENSIPAR) PO SCH (06:14)
[2022-12-15] MEDS: **hydrALAZINE** 10 MG TAB PO SCH ×4 (06:17→21:00)
[2022-12-15] MEDS: HEPARIN SOD (PORCINE) 5000UNITS/ML 1ML VIAL/SYRINGE SC SCH ×3 (06:17→21:17)
[2022-12-15] MEDS: VENLAFAXINE **XR** 75MG CAPSULE PO SCH (06:23)
[2022-12-15] MEDS: FUROSEMIDE 40MG/4ML VIAL IV SCH (06:23)
[2022-12-15] MEDS: LIDOCAINE 5% (LIDODERM) PATCH TOP SCH (06:23)
[2022-12-15] MEDS: CETIRIZINE (ZyrTEC) 10 MG TAB PO SCH (06:23)
[2022-12-15] MEDS: CLOBETASOL PROP 0.05% OINT 30 GM TOP PRN ×2 (06:25→14:42)
[2022-12-15 06:26] LABS: BILIRUBIN,TOTAL 0.2 MG/DL (0.3-1.2); CALCIUM LEVEL 10.3 MG/DL (8.3-10.6); CREATININE FOR GFR 4.99 MG/DL (0.55-1.30); GLOMERULAR FILTRATION RATE 9.4 (>45); PHOSPHORUS LEVEL 6.6 MG/DL (2.4-5.1); TOTAL PROTEIN 6.8 G/DL (5.7-8.2)
[2022-12-15] MEDS: EMLA CREAM 5GM TUBE (LIDOCAINE/PRILOCAINE) TOP SCH (06:26)
[2022-12-15] MEDS: INSULIN LISPRO (NovoLOG) PER UNIT SC SCH ×4 (07:30→21:00)
[2022-12-15] MEDS ORDERED: SODIUM CHLORIDE 0.9% 1000ML IV PRN (08:00)
[2022-12-15] MEDS ORDERED: HEPARIN 1,000UNITS/ML 10ML VIAL (FOR RADIOLOGY & DIALYSIS ONLY) IV PRN (08:00)
[2022-12-15] MEDS ORDERED: HEPARIN 1,000UNITS/ML 10ML VIAL (FOR RADIOLOGY & DIALYSIS ONLY) XX SCH (08:00)
[2022-12-15] MEDS ORDERED: LIDOCAINE 1% SDV 5ML VIAL SC PRN (08:00)
[2022-12-15] MEDS ORDERED: POTASSIUM CHLORIDE 10MEQ SR TABLET PO ONE (08:05)
[2022-12-15 12:00] VITALS: BP 129/63; TEMP 97.2; O2SAT 95
[2022-12-15] MEDS: traMADol 50 MG TAB PO PRN (13:00)
[2022-12-15 17:42] VITALS: BP 112/50
[2022-12-15 20:54] VITALS: BP 129/69
[2022-12-15] MEDS: LEVEMIR (INSULIN DETEMIR) 1 UNITS/0.01ML SC SCH (21:17)
[2022-12-15] MEDS: tiZANidine 4 MG TAB PO SCH (21:18)
[2022-12-15] MEDS: RAMELTEON 8 MG TAB (ROZEREM) PO SCH (21:18)
[2022-12-15] MEDS: METOPROLOL SUCC (TopROL XL) 50MG **XL** TAB PO SCH (21:19)
[2022-12-15] MEDS: traMADol ER 100MG TABLET (ULTRAM ER) PO SCH (21:21)
[2022-12-15 22:00] VITALS: BP 133/75; TEMP 97.5; O2SAT 90
[2022-12-16] MEDS: IPRATROPIUM 0.5MG/ALBUTEROL 2.5MG INH SOL UD 3ML (DUONEB) NEB SCH ×3 (04:00→12:53)
[2022-12-16 05:59] LABS: HEMOGLOBIN 9.1 g/dl (12.0-15.5); MEAN CORPUSCULAR HGB CONC 30.3 g/dl (32.0-36.5); MEAN CORPUSCULAR VOLUME 92.3 fl (80.0-96.0); PLATELET COUNT, AUTOMATED 187 10^3/uL (150-450); RED BLOOD COUNT 3.25 10^6/uL (4.00-5.40); WHITE BLOOD COUNT 10.8 10^3/uL (4.0-10.0)
[2022-12-16 06:00] VITALS: BP 152/72; TEMP 98.1; O2SAT 94
[2022-12-16 06:11] LABS: ALKALINE PHOSPHATASE 155 U/L (46-116); ALT/SGPT 11 U/L (7.0-40); AST/SGOT < 8 U/L (<34); BILIRUBIN,TOTAL 0.2 MG/DL (0.3-1.2); BLOOD UREA NITROGEN 29 MG/DL (9-23); CALCIUM LEVEL 10.2 MG/DL (8.3-10.6); CARBON DIOXIDE LEVEL 27 MMOL/L (20-31); CHLORIDE LEVEL 99 MMOL/L (98-107); CREATININE FOR GFR 4.97 MG/DL (0.55-1.30); GLOMERULAR FILTRATION RATE 9.4 (>45); GLUCOSE, FASTING 119 MG/DL (74-106); POTASSIUM SERUM 4.4 MMOL/L (3.5-5.1); SODIUM LEVEL 136 MMOL/L (136-145); TOTAL PROTEIN 6.8 G/DL (5.7-8.2)
[2022-12-16] MEDS: LEVOTHYROXINE 125MCG TABLET (0.125MG) PO SCH (06:15)
[2022-12-16] MEDS: LEVOTHYROXINE 50MCG TABLET (0.05MG) PO SCH (06:15)
[2022-12-16] MEDS: HEPARIN SOD (PORCINE) 5000UNITS/ML 1ML VIAL/SYRINGE SC SCH ×2 (06:15→14:00)
[2022-12-16] MEDS: traMADol 50 MG TAB PO PRN (06:47)
[2022-12-16] MEDS: LIDOCAINE 5% (LIDODERM) PATCH TOP SCH (08:28)
[2022-12-16] MEDS: CINACALCET 30 MG TAB (SENSIPAR) PO SCH (08:28)
[2022-12-16] MEDS: CETIRIZINE (ZyrTEC) 10 MG TAB PO SCH (08:28)
[2022-12-16] MEDS: ATORVASTATIN 20 MG TAB PO SCH (08:28)
[2022-12-16] MEDS: INSULIN LISPRO (NovoLOG) PER UNIT SC SCH ×2 (08:28→12:00)
[2022-12-16] MEDS: VENLAFAXINE **XR** 75MG CAPSULE PO SCH (08:28)
[2022-12-16] MEDS: (RENVELA) SEVELAMER **CARBONate** 800 MG TAB PO SCH ×2 (08:29→12:30)
[2022-12-16 08:32] VITALS: BP 130/54
[2022-12-16] MEDS: **hydrALAZINE** 10 MG TAB PO SCH (08:32)
[2022-12-16] MEDS ORDERED: HYDR10TAB PO (13:14)
[2022-12-16 14:00] VITALS: BP 140/75; TEMP 97.9; O2SAT 95
== END 2022-12-16 16:16 | disposition home health service (06) | DRG 194 ==
LOC: M ED 16:11 → M ED INP 19:44 → M PCU 22:00 → M MSPAV 12-13 08:15
PROVIDERS: ADMIT Internal Medicine; ATTEND Internal Medicine
PROC: 5A1D70Z Performance of Urinary Filtration, Intermittent, Less than 6 Hours Per Day (ICD-10-PCS; principal; 2022-12-12)
DX: I13.2 Hypertensive heart and chronic kidney disease with heart failure and with stage 5 chronic kidney disease, or end stage renal disease (principal); J81.0 Acute pulmonary edema; N18.6 End stage renal disease; E11.22 Type 2 diabetes mellitus with diabetic chronic kidney disease; I27.20 Pulmonary hypertension, unspecified; Z99.81 Dependence on supplemental oxygen; E87.5 Hyperkalemia; D63.1 Anemia in chronic kidney disease; H11.30 Conjunctival hemorrhage, unspecified eye; E03.9 Hypothyroidism, unspecified; J45.909 Unspecified asthma, uncomplicated; I35.8 Other nonrheumatic aortic valve disorders; E21.1 Secondary hyperparathyroidism, not elsewhere classified; E78.5 Hyperlipidemia, unspecified; M54.9 Dorsalgia, unspecified; R26.89 Other abnormalities of gait and mobility; F41.9 Anxiety disorder, unspecified; F32.A Depression, unspecified; L29.9 Pruritus, unspecified; Z79.4 Long term (current) use of insulin; Z79.890 Hormone replacement therapy; Z79.899 Other long term (current) drug therapy; Z88.1 Allergy status to other antibiotic agents; Z88.2 Allergy status to sulfonamides; Z90.79 Acquired absence of other genital organ(s); Z88.6 Allergy status to analgesic agent; Z88.5 Allergy status to narcotic agent; Z99.2 Dependence on renal dialysis; Z88.8 Allergy status to other drugs, medicaments and biological substances; Z87.891 Personal history of nicotine dependence; I50.23 Acute on chronic systolic (congestive) heart failure

== ENCOUNTER → 2023-01-02 | Outpatient (CLI) | payer OTHER ==
[~2023-01-02] MED LIST changes: +ALBU2.5V10 INH; +BUDE0.5S6 INH; +CLOB-25 TOP; +HYDR-3363 PO; +HYDR10TAB PO; -LIDO1CRE42 TOP; +LIDO30CR18 TOP; +LIDO5TD TOP; +RENV2.4P PO; +TRAM1CAP15 PO; +VENL75CA47 PO; -VENTAER INH; +VENTAER PO
== END ==
LOC: M RAD 09:02
PROVIDERS: ATTEND Student in an Organized Health Care Education/Training Program
DX: S09.90XA Unspecified injury of head, initial encounter (principal); W19.XXXA Unspecified fall, initial encounter; Y92.9 Unspecified place or not applicable; Y93.9 Activity, unspecified; Y99.9 Unspecified external cause status; I67.2 Cerebral atherosclerosis

== ENCOUNTER 2023-01-09 11:10 | Emergency (ER) | payer OTHER ==
[~2023-01-09] VITALS: Ht 170.2 cm; Wt 111.4 kg
[2023-01-09 12:55] LABS: BASO % 0.4 % (0.0-1.0); EOS # 0.1 10^3/uL (0.0-0.5); EOS % 1.3 % (0.0-3.0); HEMATOCRIT 26.5 % (36.0-47.0); HEMOGLOBIN 8.1 g/dl (12.0-15.5); LYMPH # 0.8 10^3/uL (1.5-5.0); LYMPH % 7.8 % (24.0-44.0); MEAN CORPUSCULAR HEMOGLOBIN 26.9 pg (27.0-33.0); MEAN CORPUSCULAR HGB CONC 30.6 g/dl (32.0-36.5); MONO # 0.6 10^3/uL (0.0-0.8); MONO % 5.9 % (2.0-8.0); NEUTROPHILS # 8.4 10^3/uL (1.5-8.5); NEUTROPHILS % 84.1 % (36.0-66.0); PLATELET COUNT, AUTOMATED 225 10^3/uL (150-450); RED BLOOD COUNT 3.01 10^6/uL (4.00-5.40)
[2023-01-09 13:50] LABS: CALCIUM LEVEL 9.5 MG/DL (8.3-10.6); CK-MB VALUE MASS 1.8 NG/ML (<3.6); CREATININE FOR GFR 10.25 MG/DL (0.55-1.30); GLOMERULAR FILTRATION RATE 4.1 (>45); MB/CK RELATIVE INDEX 4.09 (< OR =4)
[2023-01-09 15:12] LABS: RSV AMPLIFICATION NEGATIVE (NEGATIVE)
[2023-01-09 15:22] VITALS: O2SAT 89
[2023-01-09 16:58] LABS: CK-MB VALUE MASS 2.3 NG/ML (<3.6)
[2023-01-09 17:00] LABS: MB/CK RELATIVE INDEX 5.47 (< OR =4)
[2023-01-09 17:30] VITALS: BP 148/74; TEMP 98.7; O2SAT 96
== END 2023-01-09 17:59 | disposition home or self-care (01) ==
LOC: M ED 11:10
DX: R06.02 Shortness of breath (principal); D63.1 Anemia in chronic kidney disease; N18.6 End stage renal disease; I12.0 Hypertensive chronic kidney disease with stage 5 chronic kidney disease or end stage renal disease; E11.9 Type 2 diabetes mellitus without complications; J45.909 Unspecified asthma, uncomplicated; J43.9 Emphysema, unspecified; Z99.81 Dependence on supplemental oxygen; M54.9 Dorsalgia, unspecified; F41.9 Anxiety disorder, unspecified; F32.A Depression, unspecified; Z87.891 Personal history of nicotine dependence; Z99.2 Dependence on renal dialysis; Z79.4 Long term (current) use of insulin; Z79.899 Other long term (current) drug therapy; Z88.2 Allergy status to sulfonamides; Z88.5 Allergy status to narcotic agent; Z88.6 Allergy status to analgesic agent; Z88.8 Allergy status to other drugs, medicaments and biological substances

== ENCOUNTER 2023-01-12 04:00 | Inpatient (IN) | payer OTHER ==
[~2023-01-12] VITALS: Ht 170.2 cm; Wt 109.6 kg
[2023-01-12 05:05] LABS: BASO # 0.1 10^3/uL (0.0-0.2); BASO % 0.6 % (0.0-1.0); EOS # 0.1 10^3/uL (0.0-0.5); EOS % 1.1 % (0.0-3.0); HEMATOCRIT 24.8 % (36.0-47.0); HEMOGLOBIN 7.7 g/dl (12.0-15.5); LYMPH # 0.6 10^3/uL (1.5-5.0); LYMPH % 6.1 % (24.0-44.0); MEAN CORPUSCULAR HEMOGLOBIN 27.1 pg (27.0-33.0); MEAN CORPUSCULAR VOLUME 87.3 fl (80.0-96.0); MONO # 0.7 10^3/uL (0.0-0.8); MONO % 7.1 % (2.0-8.0); NEUTROPHILS % 83.8 % (36.0-66.0); PLATELET COUNT, AUTOMATED 177 10^3/uL (150-450); RED BLOOD COUNT 2.84 10^6/uL (4.00-5.40); WHITE BLOOD COUNT 9.6 10^3/uL (4.0-10.0)
[2023-01-12 05:05] LABS: RSV AMPLIFICATION NEGATIVE (NEGATIVE)
[2023-01-12 05:46] LABS: ALBUMIN 2.9 G/DL (3.2-5.2); ALKALINE PHOSPHATASE 95 U/L (46-116); ALT/SGPT < 9 U/L (7.0-40); AST/SGOT 11 U/L (<34); BILIRUBIN,DIRECT 0.1 MG/DL (<0.4); BILIRUBIN,TOTAL 0.4 MG/DL (0.3-1.2); BLOOD UREA NITROGEN 51 MG/DL (9-23); CALCIUM LEVEL 9.5 MG/DL (8.3-10.6); CARBON DIOXIDE LEVEL 28 MMOL/L (20-31); CHLORIDE LEVEL 97 MMOL/L (98-107); CPK CREATINE PHOSPHOKINASE 34 U/L (34-145); CREATININE FOR GFR 8.02 MG/DL (0.55-1.30); GLOMERULAR FILTRATION RATE 5.4 (>45); GLUCOSE, FASTING 109 MG/DL (74-106); MB/CK RELATIVE INDEX 2.94 (< OR =4); POTASSIUM SERUM 4.6 MMOL/L (3.5-5.1); SODIUM LEVEL 136 MMOL/L (136-145); THYROID STIMULATING HORMONE 1.879 uIU/ML (0.55-4.78); TOTAL PROTEIN 6.7 G/DL (5.7-8.2)
[2023-01-12] MEDS ORDERED: IPRATROPIUM 0.5MG/ALBUTEROL 2.5MG INH SOL UD 3ML (DUONEB) NEB ONE (05:50)
[2023-01-12 08:07] VITALS: O2SAT 82
[2023-01-12] MEDS ORDERED: **hydrALAZINE** 10 MG TAB PO ONE (08:15)
[2023-01-12] MEDS ORDERED: LEVOTHYROXINE 75MCG TABLET (0.075MG) PO ONE (08:15)
[2023-01-12] MEDS ORDERED: LEVOTHYROXINE 100MCG TABLET (0.1MG) PO SCH (08:15)
[2023-01-12] MEDS ORDERED: LEVOTHYROXINE 100MCG TABLET (0.1MG) PO ONE (08:15)
[2023-01-12 08:26] LABS: CK-MB VALUE MASS 1.3 NG/ML (<3.6)
[2023-01-12 08:28] LABS: MB/CK RELATIVE INDEX 3.71 (< OR =4)
[2023-01-12] MEDS ORDERED: cefTRIAXone SOD 1 GM in D5W MINI-BAG PLUS 50 ML IV ONE (08:40)
[2023-01-12] MEDS ORDERED: DOXYCYCLINE HYCLATE 100MG TABLET PO ONE (08:40)
[2023-01-12] MEDS: LIDOCAINE 5% (LIDODERM) PATCH TOP SCH (09:00)
[2023-01-12] MEDS ORDERED: **hydrALAZINE** 10 MG TAB PO PRN (09:20)
[2023-01-12] MEDS ORDERED: LIDOCAINE 1% SDV 5ML VIAL SC PRN (09:25)
[2023-01-12] MEDS ORDERED: HEPARIN 1,000UNITS/ML 10ML VIAL (FOR RADIOLOGY & DIALYSIS ONLY) XX SCH (09:25)
[2023-01-12] MEDS ORDERED: SODIUM CHLORIDE 0.9% 1000ML IV PRN (09:25)
[2023-01-12] MEDS ORDERED: HEPARIN 1,000UNITS/ML 10ML VIAL (FOR RADIOLOGY & DIALYSIS ONLY) IV PRN (09:25)
[2023-01-12] MEDS ORDERED: MED REC CURRENTLY UNOBTAINABLE XX SCH (10:00)
[2023-01-12] MEDS ORDERED: GLUCAGON INJ 1MG VIAL SC PRN (10:00)
[2023-01-12] MEDS ORDERED: DEXTROSE 50% 50ML SYRINGE IV PRN (10:00)
[2023-01-12] MEDS ORDERED: GLUCOSE 4GM CHEW TABLET PO PRN (10:00)
[2023-01-12 10:26] LABS: PROTHROMBIN TIME 13.4 SECONDS (12.5-14.5)
[2023-01-12 10:27] LABS: PARTIAL THROMBOPLASTIN TIME 38.1 SECONDS (24.8-34.2)
[2023-01-12] MEDS: IPRATROPIUM 0.5MG/ALBUTEROL 2.5MG INH SOL UD 3ML (DUONEB) NEB SCH ×3 (11:13→19:37)
[2023-01-12] MEDS ORDERED: HOME MED LIST COMPLETE! XX SCH (12:20)
[2023-01-12] MEDS ORDERED: NYSTATIN 100,000 UNITS/GM TOPICAL PWD 15GM TOP PRN (12:30)
[2023-01-12] MEDS ORDERED: FLUTICASONE PROP 0.05% NASAL SPRAY 16 GM (FLONASE) NARES PRN (12:30)
[2023-01-12] MEDS ORDERED: CLOBETASOL PROPIONATE EMOLLIENT 0.05% CR 60 GM TOP PRN (12:30)
[2023-01-12] MEDS ORDERED: EMLA CREAM 5GM TUBE (LIDOCAINE/PRILOCAINE) TOP SCH (12:30)
[2023-01-12] MEDS: (RENVELA) SEVELAMER **CARBONate** 800 MG TAB PO SCH ×2 (12:30→18:00)
[2023-01-12] MEDS: ACETAMINOPHEN TAB 650MG DOSE (2X325MG) PO PRN ×2 (12:32→18:39)
[2023-01-12] MEDS: INSULIN LISPRO (NovoLOG) PER UNIT SC SCH ×3 (12:33→20:22)
[2023-01-12 18:06] VITALS: BP 106/78; TEMP 97.7; O2SAT 99
[2023-01-12] MEDS: ATORVASTATIN 20 MG TAB PO SCH (18:27)
[2023-01-12] MEDS: HEPARIN SOD (PORCINE) 5000UNITS/ML 1ML VIAL/SYRINGE SQ SCH ×2 (18:28→21:14)
[2023-01-12] MEDS: VENLAFAXINE **XR** 75MG CAPSULE PO SCH (18:28)
[2023-01-12] MEDS: CINACALCET 30 MG TAB (SENSIPAR) PO SCH (18:31)
[2023-01-12] MEDS: **hydrALAZINE** 10 MG TAB PO SCH ×2 (18:32→20:34)
[2023-01-12] MEDS: BUDESONIDE 0.5 MG/2 ML INHALATION SUSPENSION INH SCH (19:37)
[2023-01-12 20:00] VITALS: BP 124/73; TEMP 97.7; O2SAT 94
[2023-01-12] MEDS: traMADol ER 100MG TABLET (ULTRAM ER) PO SCH (20:34)
[2023-01-12] MEDS: METOPROLOL SUCC (TopROL XL) 50MG **XL** TAB PO SCH (20:34)
[2023-01-12] MEDS: DOXYCYCLINE HYCLATE 100MG TABLET PO SCH (20:34)
[2023-01-12] MEDS: tiZANidine 4 MG TAB PO SCH (20:34)
[2023-01-12] MEDS ORDERED: LEVEMIR (INSULIN DETEMIR) 1 UNITS/0.01ML SC SCH (21:00)
[2023-01-13] MEDS: ACETAMINOPHEN TAB 650MG DOSE (2X325MG) PO PRN ×2 (02:50→15:15)
[2023-01-13] MEDS: ALBUTEROL SULFATE 2.5MG/0.5ML INH NEB SOLN NEB PRN ×2 (03:08→05:54)
[2023-01-13] MEDS: LEVOTHYROXINE 75MCG TABLET (0.075MG) PO SCH (05:51)
[2023-01-13] MEDS: LEVOTHYROXINE 100MCG TABLET (0.1MG) PO SCH (05:51)
[2023-01-13] MEDS: HEPARIN SOD (PORCINE) 5000UNITS/ML 1ML VIAL/SYRINGE SQ SCH ×3 (05:52→21:14)
[2023-01-13 06:00] VITALS: BP 141/66; TEMP 98.1; O2SAT 99
[2023-01-13 06:30] LABS: HEMATOCRIT 24.7 % (36.0-47.0); HEMOGLOBIN 7.5 g/dl (12.0-15.5); MEAN CORPUSCULAR HEMOGLOBIN 27.1 pg (27.0-33.0); MEAN CORPUSCULAR HGB CONC 30.4 g/dl (32.0-36.5); MEAN CORPUSCULAR VOLUME 89.2 fl (80.0-96.0); PLATELET COUNT, AUTOMATED 212 10^3/uL (150-450); RED BLOOD COUNT 2.77 10^6/uL (4.00-5.40); WHITE BLOOD COUNT 8.7 10^3/uL (4.0-10.0)
[2023-01-13 06:58] LABS: ALBUMIN 2.8 G/DL (3.2-5.2); ALKALINE PHOSPHATASE 98 U/L (46-116); ALT/SGPT < 9 U/L (7.0-40); AST/SGOT 9 U/L (<34); BILIRUBIN,TOTAL 0.4 MG/DL (0.3-1.2); BLOOD UREA NITROGEN 33 MG/DL (9-23); CALCIUM LEVEL 10.5 MG/DL (8.3-10.6); CARBON DIOXIDE LEVEL 28 MMOL/L (20-31); CHLORIDE LEVEL 99 MMOL/L (98-107); CREATININE FOR GFR 5.58 MG/DL (0.55-1.30); GLOMERULAR FILTRATION RATE 8.3 (>45); GLUCOSE, FASTING 137 MG/DL (74-106); POTASSIUM SERUM 4.5 MMOL/L (3.5-5.1); SODIUM LEVEL 136 MMOL/L (136-145); TOTAL PROTEIN 6.8 G/DL (5.7-8.2)
[2023-01-13] MEDS: BUDESONIDE 0.5 MG/2 ML INHALATION SUSPENSION INH SCH ×2 (07:12→19:05)
[2023-01-13] MEDS: IPRATROPIUM 0.5MG/ALBUTEROL 2.5MG INH SOL UD 3ML (DUONEB) NEB SCH ×4 (07:12→19:05)
[2023-01-13] MEDS: (RENVELA) SEVELAMER **CARBONate** 800 MG TAB PO SCH ×3 (08:00→17:12)
[2023-01-13] MEDS: ATORVASTATIN 20 MG TAB PO SCH (08:27)
[2023-01-13] MEDS: INSULIN LISPRO (NovoLOG) PER UNIT SC SCH ×4 (08:27→21:00)
[2023-01-13] MEDS: DOXYCYCLINE HYCLATE 100MG TABLET PO SCH ×2 (08:27→21:16)
[2023-01-13] MEDS: VENLAFAXINE **XR** 75MG CAPSULE PO SCH (08:27)
[2023-01-13] MEDS: cefTRIAXone SOD 1 GM in D5W MINI-BAG PLUS 50 ML IV SCH ×3 (08:28→11:06)
[2023-01-13] MEDS: **hydrALAZINE** 10 MG TAB PO SCH ×3 (08:29→21:15)
[2023-01-13] MEDS: CINACALCET 30 MG TAB (SENSIPAR) PO SCH (08:37)
[2023-01-13] MEDS: LIDOCAINE 5% (LIDODERM) PATCH TOP SCH (08:37)
[2023-01-13 14:00] VITALS: BP 143/64; TEMP 98.1; O2SAT 97
[2023-01-13 21:00] VITALS: BP 153/65; TEMP 97.7; O2SAT 97
[2023-01-13] MEDS: tiZANidine 4 MG TAB PO SCH (21:14)
[2023-01-13] MEDS: traMADol ER 100MG TABLET (ULTRAM ER) PO SCH (21:15)
[2023-01-13] MEDS: METOPROLOL SUCC (TopROL XL) 50MG **XL** TAB PO SCH (21:16)
[2023-01-13] MEDS: LEVEMIR (INSULIN DETEMIR) 1 UNITS/0.01ML SC SCH (21:17)
[2023-01-14] VITALS (11 sets, daily range): BP systolic 136–166; BP diastolic 54–83; TEMP 98–98.4; O2SAT 96–99
[2023-01-14] MEDS: ALBUTEROL SULFATE 2.5MG/0.5ML INH NEB SOLN NEB PRN (01:15)
[2023-01-14] MEDS: ACETAMINOPHEN TAB 650MG DOSE (2X325MG) PO PRN ×4 (02:38→22:47)
[2023-01-14] MEDS: HEPARIN SOD (PORCINE) 5000UNITS/ML 1ML VIAL/SYRINGE SQ SCH ×3 (05:29→21:32)
[2023-01-14] MEDS: LEVOTHYROXINE 100MCG TABLET (0.1MG) PO SCH (05:29)
[2023-01-14] MEDS: LEVOTHYROXINE 75MCG TABLET (0.075MG) PO SCH (05:29)
[2023-01-14 05:45] LABS: HEMATOCRIT 23.3 % (36.0-47.0); MEAN CORPUSCULAR HEMOGLOBIN 27.1 pg (27.0-33.0); MEAN CORPUSCULAR VOLUME 90.3 fl (80.0-96.0); PLATELET COUNT, AUTOMATED 186 10^3/uL (150-450); RED BLOOD COUNT 2.58 10^6/uL (4.00-5.40); WHITE BLOOD COUNT 9.1 10^3/uL (4.0-10.0)
[2023-01-14 06:10] LABS: ALBUMIN 2.8 G/DL (3.2-5.2); ALKALINE PHOSPHATASE 105 U/L (46-116); ALT/SGPT < 9 U/L (7.0-40); AST/SGOT < 8 U/L (<34); BILIRUBIN,TOTAL 0.2 MG/DL (0.3-1.2); BLOOD UREA NITROGEN 54 MG/DL (9-23); CARBON DIOXIDE LEVEL 25 MMOL/L (20-31); CHLORIDE LEVEL 97 MMOL/L (98-107); CREATININE FOR GFR 7.56 MG/DL (0.55-1.30); GLOMERULAR FILTRATION RATE 5.8 (>45); GLUCOSE, FASTING 105 MG/DL (74-106); POTASSIUM SERUM 4.3 MMOL/L (3.5-5.1); SODIUM LEVEL 134 MMOL/L (136-145); TOTAL PROTEIN 6.5 G/DL (5.7-8.2)
[2023-01-14] MEDS: IPRATROPIUM 0.5MG/ALBUTEROL 2.5MG INH SOL UD 3ML (DUONEB) NEB SCH ×4 (07:16→18:57)
[2023-01-14] MEDS: BUDESONIDE 0.5 MG/2 ML INHALATION SUSPENSION INH SCH ×2 (07:16→18:57)
[2023-01-14] MEDS ORDERED: LIDOCAINE 1% SDV 5ML VIAL SC PRN (07:30)
[2023-01-14] MEDS ORDERED: HEPARIN 1,000UNITS/ML 10ML VIAL (FOR RADIOLOGY & DIALYSIS ONLY) IV PRN (07:30)
[2023-01-14] MEDS: INSULIN LISPRO (NovoLOG) PER UNIT SC SCH ×4 (07:30→21:00)
[2023-01-14] MEDS ORDERED: HEPARIN 1,000UNITS/ML 10ML VIAL (FOR RADIOLOGY & DIALYSIS ONLY) XX SCH (07:30)
[2023-01-14] MEDS ORDERED: SODIUM CHLORIDE 0.9% 1000ML IV PRN (07:30)
[2023-01-14] MEDS: (RENVELA) SEVELAMER **CARBONate** 800 MG TAB PO SCH ×3 (07:46→17:33)
[2023-01-14] MEDS: LIDOCAINE 5% (LIDODERM) PATCH TOP SCH (07:49)
[2023-01-14] MEDS: cefTRIAXone SOD 1 GM in D5W MINI-BAG PLUS 50 ML IV SCH (07:50)
[2023-01-14] MEDS: DOXYCYCLINE HYCLATE 100MG TABLET PO SCH ×2 (07:51→21:31)
[2023-01-14] MEDS: ATORVASTATIN 20 MG TAB PO SCH (07:51)
[2023-01-14] MEDS: VENLAFAXINE **XR** 75MG CAPSULE PO SCH (07:51)
[2023-01-14] MEDS: CINACALCET 30 MG TAB (SENSIPAR) PO SCH (08:08)
[2023-01-14] MEDS: **hydrALAZINE** 10 MG TAB PO SCH ×3 (08:08→21:33)
[2023-01-14] MEDS ORDERED: INSULIN LISPRO (NovoLOG) PER UNIT SC SCH ×2 (17:30→21:00)
[2023-01-14] MEDS: tiZANidine 4 MG TAB PO SCH (21:31)
[2023-01-14] MEDS: traMADol ER 100MG TABLET (ULTRAM ER) PO SCH (21:31)
[2023-01-14] MEDS: METOPROLOL SUCC (TopROL XL) 50MG **XL** TAB PO SCH (21:32)
[2023-01-14] MEDS: LEVEMIR (INSULIN DETEMIR) 1 UNITS/0.01ML SC SCH (21:34)
[2023-01-15] MEDS ORDERED: HEPARIN 1,000UNITS/ML 10ML VIAL (FOR RADIOLOGY & DIALYSIS ONLY) IV PRN (00:40)
[2023-01-15] MEDS ORDERED: HEPARIN 1,000UNITS/ML 10ML VIAL (FOR RADIOLOGY & DIALYSIS ONLY) XX SCH (00:40)
[2023-01-15] MEDS ORDERED: SODIUM CHLORIDE 0.9% 1000ML IV PRN (00:40)
[2023-01-15] MEDS ORDERED: LIDOCAINE 1% SDV 5ML VIAL SC PRN (00:40)
[2023-01-15] MEDS: ALBUTEROL SULFATE 2.5MG/0.5ML INH NEB SOLN NEB PRN ×2 (01:59→05:33)
[2023-01-15] MEDS: (RENVELA) SEVELAMER **CARBONate** 800 MG TAB PO SCH ×2 (06:01→12:26)
[2023-01-15 06:12] VITALS: BP 155/75; TEMP 98.2; O2SAT 98
[2023-01-15 06:17] LABS: HEMATOCRIT 28.4 % (36.0-47.0); MEAN CORPUSCULAR HEMOGLOBIN 28.2 pg (27.0-33.0); MEAN CORPUSCULAR HGB CONC 31.7 g/dl (32.0-36.5); PLATELET COUNT, AUTOMATED 182 10^3/uL (150-450); RED BLOOD COUNT 3.19 10^6/uL (4.00-5.40); WHITE BLOOD COUNT 9.1 10^3/uL (4.0-10.0)
[2023-01-15] MEDS: LEVOTHYROXINE 100MCG TABLET (0.1MG) PO SCH (06:17)
[2023-01-15] MEDS: DOXYCYCLINE HYCLATE 100MG TABLET PO SCH (06:17)
[2023-01-15] MEDS: LEVOTHYROXINE 75MCG TABLET (0.075MG) PO SCH (06:17)
[2023-01-15 06:18] VITALS: BP 155/75
[2023-01-15] MEDS: **hydrALAZINE** 10 MG TAB PO SCH (06:18)
[2023-01-15] MEDS: ATORVASTATIN 20 MG TAB PO SCH (06:18)
[2023-01-15] MEDS: VENLAFAXINE **XR** 75MG CAPSULE PO SCH (06:18)
[2023-01-15] MEDS: HEPARIN SOD (PORCINE) 5000UNITS/ML 1ML VIAL/SYRINGE SQ SCH ×2 (06:19→14:00)
[2023-01-15] MEDS: CINACALCET 30 MG TAB (SENSIPAR) PO SCH (06:23)
[2023-01-15 06:42] LABS: ALBUMIN 2.8 G/DL (3.2-5.2); ALKALINE PHOSPHATASE 103 U/L (46-116); ALT/SGPT < 9 U/L (7.0-40); AST/SGOT 13 U/L (<34); BILIRUBIN,TOTAL 0.3 MG/DL (0.3-1.2); BLOOD UREA NITROGEN 34 MG/DL (9-23); CALCIUM LEVEL 10.2 MG/DL (8.3-10.6); CARBON DIOXIDE LEVEL 25 MMOL/L (20-31); CHLORIDE LEVEL 101 MMOL/L (98-107); CREATININE FOR GFR 5.39 MG/DL (0.55-1.30); GLOMERULAR FILTRATION RATE 8.6 (>45); GLUCOSE, FASTING 148 MG/DL (74-106); POTASSIUM SERUM 4.8 MMOL/L (3.5-5.1); SODIUM LEVEL 137 MMOL/L (136-145); TOTAL PROTEIN 6.7 G/DL (5.7-8.2)
[2023-01-15] MEDS: BUDESONIDE 0.5 MG/2 ML INHALATION SUSPENSION INH SCH (07:28)
[2023-01-15] MEDS: IPRATROPIUM 0.5MG/ALBUTEROL 2.5MG INH SOL UD 3ML (DUONEB) NEB SCH ×2 (07:28→12:00)
[2023-01-15] MEDS: INSULIN LISPRO (NovoLOG) PER UNIT SC SCH ×2 (07:54→12:00)
[2023-01-15] MEDS: LIDOCAINE 5% (LIDODERM) PATCH TOP SCH (07:57)
[2023-01-15] MEDS: cefTRIAXone SOD 1 GM in D5W MINI-BAG PLUS 50 ML IV SCH (12:25)
[2023-01-15] MEDS ORDERED: LEVO1TAB39 PO (12:45)
[2023-01-15] MEDS ORDERED: LevoFLOXacin 750 MG TABLET PO ONE (15:00)
[2023-01-17] MEDS ORDERED: LevoFLOXacin 500 MG TABLET PO SCH (18:00)
== END 2023-01-15 15:49 | disposition home or self-care (01) | DRG 194 ==
LOC: M ED 04:00 → M ED INP 09:18 → M MSPAV 10:53 → M ED INP 10:53 → UNDODISIN 01-15 13:41 → M MSPAV 01-15 14:07
PROVIDERS: ADMIT Internal Medicine; ATTEND Internal Medicine
PROC: 30233N1 Transfusion of Nonautologous Red Blood Cells into Peripheral Vein, Percutaneous Approach (ICD-10-PCS; principal; 2023-01-14)
PROC: 5A1D70Z Performance of Urinary Filtration, Intermittent, Less than 6 Hours Per Day (ICD-10-PCS; 2023-01-15)
DX: I13.2 Hypertensive heart and chronic kidney disease with heart failure and with stage 5 chronic kidney disease, or end stage renal disease (principal); J96.21 Acute and chronic respiratory failure with hypoxia; J18.9 Pneumonia, unspecified organism; N18.6 End stage renal disease; I27.20 Pulmonary hypertension, unspecified; J44.0 Chronic obstructive pulmonary disease with (acute) lower respiratory infection; E11.22 Type 2 diabetes mellitus with diabetic chronic kidney disease; I71.21 Aneurysm of the ascending aorta, without rupture; Z99.81 Dependence on supplemental oxygen; E87.1 Hypo-osmolality and hyponatremia; E87.5 Hyperkalemia; E03.9 Hypothyroidism, unspecified; R26.89 Other abnormalities of gait and mobility; J45.909 Unspecified asthma, uncomplicated; M54.9 Dorsalgia, unspecified; D50.9 Iron deficiency anemia, unspecified; G89.29 Other chronic pain; D63.1 Anemia in chronic kidney disease; F41.9 Anxiety disorder, unspecified; F32.A Depression, unspecified; Z92.3 Personal history of irradiation; Z90.49 Acquired absence of other specified parts of digestive tract; Z90.79 Acquired absence of other genital organ(s); Z79.891 Long term (current) use of opiate analgesic; Z79.4 Long term (current) use of insulin; Z79.890 Hormone replacement therapy; Z79.899 Other long term (current) drug therapy; Z88.2 Allergy status to sulfonamides; Z88.8 Allergy status to other drugs, medicaments and biological substances; Z88.5 Allergy status to narcotic agent; Z20.822 Contact with and (suspected) exposure to COVID-19; I50.23 Acute on chronic systolic (congestive) heart failure

== ENCOUNTER 2023-01-24 17:48 | Inpatient (IN) | payer OTHER ==
[~2023-01-24] VITALS: Ht 170.2 cm; Wt 115.7 kg
[~2023-01-24 17:48] MED LIST changes: -TIZA1TAB12 PO; -TREL1AER INH
[2023-01-24 18:37] LABS: BASO % 0.5 % (0.0-1.0); EOS # 0.2 10^3/uL (0.0-0.5); EOS % 2.1 % (0.0-3.0); HEMATOCRIT 29.1 % (36.0-47.0); HEMOGLOBIN 8.8 g/dl (12.0-15.5); LYMPH # 0.7 10^3/uL (1.5-5.0); LYMPH % 9.5 % (24.0-44.0); MEAN CORPUSCULAR HEMOGLOBIN 27.8 pg (27.0-33.0); MEAN CORPUSCULAR HGB CONC 30.2 g/dl (32.0-36.5); MEAN CORPUSCULAR VOLUME 91.8 fl (80.0-96.0); MONO # 0.5 10^3/uL (0.0-0.8); MONO % 6.8 % (2.0-8.0); NEUTROPHILS % 80.4 % (36.0-66.0); PLATELET COUNT, AUTOMATED 165 10^3/uL (150-450); RED BLOOD COUNT 3.17 10^6/uL (4.00-5.40); WHITE BLOOD COUNT 7.5 10^3/uL (4.0-10.0)
[2023-01-24 18:58] LABS: CK-MB VALUE MASS 2.2 NG/ML (<3.6); INR 1.09; PROTHROMBIN TIME 13.8 SECONDS (12.5-14.5)
[2023-01-24 18:59] LABS: PARTIAL THROMBOPLASTIN TIME 37.5 SECONDS (24.8-34.2)
[2023-01-24 19:03] LABS: THYROID STIMULATING HORMONE 2.536 uIU/ML (0.55-4.78)
[2023-01-24 19:09] LABS: ALBUMIN 2.9 G/DL (3.2-5.2); ALKALINE PHOSPHATASE 77 U/L (46-116); ALT/SGPT < 9 U/L (7.0-40); AST/SGOT 15 U/L (<34); BILIRUBIN,DIRECT 0.2 MG/DL (<0.4); BILIRUBIN,TOTAL 0.5 MG/DL (0.3-1.2); BLOOD UREA NITROGEN 48 MG/DL (9-23); CALCIUM LEVEL 10.1 MG/DL (8.3-10.6); CARBON DIOXIDE LEVEL 28 MMOL/L (20-31); CHLORIDE LEVEL 97 MMOL/L (98-107); CPK CREATINE PHOSPHOKINASE 52 U/L (34-145); GLOMERULAR FILTRATION RATE 4.9 (>45); GLUCOSE, FASTING 130 MG/DL (74-106); MB/CK RELATIVE INDEX 4.23 (< OR =4); POTASSIUM SERUM 4.2 MMOL/L (3.5-5.1); SODIUM LEVEL 136 MMOL/L (136-145); TOTAL PROTEIN 6.7 G/DL (5.7-8.2)
[2023-01-24] MEDS ORDERED: hydrALAZINE 20MG/ML 1ML VIAL IV STA ×3 (20:16→23:19)
[2023-01-24 20:19] LABS: CK-MB VALUE MASS < 1.0 NG/ML (<3.6); CPK CREATINE PHOSPHOKINASE 37 U/L (34-145)
[2023-01-24] MEDS ORDERED: **hydrALAZINE** 10 MG TAB PO ONE (20:20)
[2023-01-24] MEDS ORDERED: METOPROLOL SUCC (TopROL XL) 50MG **XL** TAB PO ONE (20:20)
[2023-01-24] MEDS ORDERED: ISOVUE-370 76% 100ML VIAL As Ordered ONE (20:59)
[2023-01-24] MEDS ORDERED: MOM 30ML SUSPENSION UDC PO PRN (23:15)
[2023-01-24] MEDS ORDERED: ACETAMINOPHEN TAB 650MG DOSE (2X325MG) PO PRN (23:15)
[2023-01-24] MEDS ORDERED: MAALOX 30 ML SUSP *UDC PO PRN (23:15)
[2023-01-24] MEDS ORDERED: GLUCAGON INJ 1MG VIAL SC PRN (23:20)
[2023-01-24] MEDS ORDERED: DEXTROSE 50% 50ML SYRINGE IV PRN (23:20)
[2023-01-24] MEDS ORDERED: GLUCOSE 4GM CHEW TABLET PO PRN (23:20)
[2023-01-24] MEDS ORDERED: TIZA1TAB12 PO ×2 (23:26)
[2023-01-24] MEDS ORDERED: LEVO1TAB39 PO (23:26)
[2023-01-24] MEDS ORDERED: TREL1AER INH (23:27)
[2023-01-24] MEDS ORDERED: NITROGLYCERIN 0.4MG SUBL TABLET SL PRN (23:30)
[2023-01-24] MEDS ORDERED: HOME MED LIST COMPLETE! XX SCH (23:30)
[2023-01-24] MEDS ORDERED: FUROSEMIDE 40 MG TAB PO SCH (23:30)
[2023-01-24] MEDS ORDERED: ALBUTEROL SULFATE 2.5MG/0.5ML INH NEB SOLN NEB PRN (23:30)
[2023-01-24] MEDS ORDERED: EMLA CREAM 5GM TUBE (LIDOCAINE/PRILOCAINE) TOP PRN (23:30)
[2023-01-25] MEDS: IPRATROPIUM 0.5MG/ALBUTEROL 2.5MG INH SOL UD 3ML (DUONEB) NEB SCH ×4 (02:01→19:02)
[2023-01-25] MEDS ORDERED: methylPREDNISolone 125MG 2ML VIAL IV ONE (02:30)
[2023-01-25] MEDS ORDERED: hydrALAZINE 20MG/ML 1ML VIAL IV STA ×2 (02:46→03:33)
[2023-01-25] MEDS ORDERED: LABETALOL 100MG/20ML VIAL IV STA (04:40)
[2023-01-25] MEDS: LEVOTHYROXINE 25MCG TABLET (0.025MG) PO SCH (06:11)
[2023-01-25] MEDS: LEVOTHYROXINE 150MCG TABLET (0.15MG) PO SCH (06:11)
[2023-01-25] MEDS: HEPARIN SOD (PORCINE) 5000UNITS/ML 1ML VIAL/SYRINGE SC SCH ×3 (06:16→21:31)
[2023-01-25] MEDS ORDERED: hydrALAZINE 20MG/ML 1ML VIAL IV PRN (06:40)
[2023-01-25 07:10] LABS: HEMOGLOBIN 8.8 g/dl (12.0-15.5); MEAN CORPUSCULAR HEMOGLOBIN 27.9 pg (27.0-33.0); MEAN CORPUSCULAR HGB CONC 30.3 g/dl (32.0-36.5); MEAN CORPUSCULAR VOLUME 92.1 fl (80.0-96.0); PLATELET COUNT, AUTOMATED 152 10^3/uL (150-450); RED BLOOD COUNT 3.15 10^6/uL (4.00-5.40); WHITE BLOOD COUNT 10.1 10^3/uL (4.0-10.0)
[2023-01-25 07:42] LABS: CALCIUM LEVEL 10.7 MG/DL (8.3-10.6); CREATININE FOR GFR 9.58 MG/DL (0.55-1.30); GLOMERULAR FILTRATION RATE 4.4 (>45); MAGNESIUM LEVEL 2.5 MG/DL (1.8-2.4); POTASSIUM SERUM 4.2 MMOL/L (3.5-5.1)
[2023-01-25] MEDS: INSULIN LISPRO (NovoLOG) PER UNIT SC SCH ×4 (08:31→21:32)
[2023-01-25 08:38] VITALS: O2SAT 99
[2023-01-25] MEDS: BUDESONIDE 0.5 MG/2 ML INHALATION SUSPENSION INH SCH ×2 (08:39→19:02)
[2023-01-25] MEDS ORDERED: EMLA CREAM 5GM TUBE (LIDOCAINE/PRILOCAINE) TOP SCH (09:00)
[2023-01-25] MEDS: CINACALCET 30 MG TAB (SENSIPAR) PO SCH (09:00)
[2023-01-25] MEDS ORDERED: metOLazone 5 MG TAB PO SCH (09:00)
[2023-01-25] MEDS: LIDOCAINE 5% (LIDODERM) PATCH TOP SCH (09:00)
[2023-01-25] MEDS ORDERED: FLUoxetine 20MG CAP PO SCH (09:00)
[2023-01-25] MEDS: LOSARTAN 50MG TABLET PO SCH (09:05)
[2023-01-25] MEDS: CETIRIZINE (ZyrTEC) 10 MG TAB PO SCH (09:06)
[2023-01-25] MEDS: VENLAFAXINE **XR** 75MG CAPSULE PO SCH (09:06)
[2023-01-25] MEDS: ATORVASTATIN 20 MG TAB PO SCH (09:06)
[2023-01-25] MEDS: DOCUSATE SODIUM 100MG CAPSULE PO PRN (09:07)
[2023-01-25] MEDS ORDERED: LIDOCAINE 1% SDV 5ML VIAL SC PRN (09:15)
[2023-01-25] MEDS ORDERED: HEPARIN 1,000UNITS/ML 10ML VIAL (FOR RADIOLOGY & DIALYSIS ONLY) IV PRN (09:15)
[2023-01-25] MEDS ORDERED: HEPARIN 1,000UNITS/ML 10ML VIAL (FOR RADIOLOGY & DIALYSIS ONLY) XX SCH (09:15)
[2023-01-25] MEDS ORDERED: SODIUM CHLORIDE 0.9% 1000ML IV PRN (09:15)
[2023-01-25] MEDS ORDERED: CLOBETASOL PROP 0.05% OINT 30 GM TOP PRN (15:15)
[2023-01-25] MEDS ORDERED: FLUTICASONE PROP 0.05% NASAL SPRAY 16 GM (FLONASE) NARES PRN (15:15)
[2023-01-25] MEDS ORDERED: tiZANidine 4 MG TAB PO PRN (15:15)
[2023-01-25] MEDS ORDERED: NYSTATIN 100,000 UNITS/GM TOPICAL PWD 15GM TOP PRN (15:15)
[2023-01-25] MEDS ORDERED: PILL CUTTER 1 EACH XX PRN (17:10)
[2023-01-25 17:40] VITALS: BP 135/77; TEMP 97.1; O2SAT 99
[2023-01-25] MEDS ORDERED: LIDOCAINE 4% CREAM 5GM (LMX4) TOP PRN ×2 (17:47)
[2023-01-25] MEDS ORDERED: (RENVELA) SEVELAMER **CARBONate** 800 MG TAB PO SCH (18:00)
[2023-01-25 18:42] VITALS: BP 138/86; TEMP 96.7; O2SAT 100
[2023-01-25] MEDS: SYMBICORT 160/4.5MCG INHALER 6GM INH SCH (19:02)
[2023-01-25] MEDS: SEVELAMER CARBONATE PO SCH (20:02)
[2023-01-25 20:28] VITALS: BP 135/59; TEMP 97.6; O2SAT 96
[2023-01-25] MEDS ORDERED: LEVEMIR (INSULIN DETEMIR) 1 UNITS/0.01ML SC SCH (21:00)
[2023-01-25] MEDS ORDERED: traMADol ER 100MG TABLET (ULTRAM ER) PO SCH (21:00)
[2023-01-25] MEDS: traMADol ER 100MG TABLET (ULTRAM ER) PO SCH (21:32)
[2023-01-25] MEDS: LEVEMIR (INSULIN DETEMIR) 1 UNITS/0.01ML SC SCH (21:32)
[2023-01-25] MEDS: METOPROLOL SUCC (TopROL XL) 50MG **XL** TAB PO SCH (21:34)
[2023-01-25] MEDS: tiZANidine 4 MG TAB PO SCH (21:34)
[2023-01-26 00:23] VITALS: BP 147/65; TEMP 98; O2SAT 95
[2023-01-26] MEDS: IPRATROPIUM 0.5MG/ALBUTEROL 2.5MG INH SOL UD 3ML (DUONEB) NEB SCH ×4 (01:56→19:13)
[2023-01-26 04:21] VITALS: BP 147/67; TEMP 98.9; O2SAT 92
[2023-01-26] MEDS: HEPARIN SOD (PORCINE) 5000UNITS/ML 1ML VIAL/SYRINGE SC SCH ×3 (05:51→22:37)
[2023-01-26] MEDS: LEVOTHYROXINE 150MCG TABLET (0.15MG) PO SCH (05:51)
[2023-01-26] MEDS: LEVOTHYROXINE 25MCG TABLET (0.025MG) PO SCH (05:51)
[2023-01-26 05:57] LABS: HEMATOCRIT 29.4 % (36.0-47.0); HEMOGLOBIN 8.9 g/dl (12.0-15.5); MEAN CORPUSCULAR HEMOGLOBIN 28.1 pg (27.0-33.0); MEAN CORPUSCULAR HGB CONC 30.3 g/dl (32.0-36.5); MEAN CORPUSCULAR VOLUME 92.7 fl (80.0-96.0); PLATELET COUNT, AUTOMATED 183 10^3/uL (150-450); RED BLOOD COUNT 3.17 10^6/uL (4.00-5.40); WHITE BLOOD COUNT 10.3 10^3/uL (4.0-10.0)
[2023-01-26] MEDS ORDERED: LEVOTHYROXINE 75MCG TABLET (0.075MG) PO SCH (06:00)
[2023-01-26] MEDS ORDERED: LEVOTHYROXINE 100MCG TABLET (0.1MG) PO SCH (06:00)
[2023-01-26 06:30] LABS: ALBUMIN 2.8 G/DL (3.2-5.2); ALKALINE PHOSPHATASE 83 U/L (46-116); ALT/SGPT < 9 U/L (7.0-40); AST/SGOT < 8 U/L (<34); BILIRUBIN,TOTAL 0.3 MG/DL (0.3-1.2); BLOOD UREA NITROGEN 39 MG/DL (9-23); CALCIUM LEVEL 10.6 MG/DL (8.3-10.6); CARBON DIOXIDE LEVEL 31 MMOL/L (20-31); CHLORIDE LEVEL 99 MMOL/L (98-107); CREATININE FOR GFR 6.33 MG/DL (0.55-1.30); GLOMERULAR FILTRATION RATE 7.1 (>45); GLUCOSE, FASTING 114 MG/DL (74-106); POTASSIUM SERUM 3.8 MMOL/L (3.5-5.1); SODIUM LEVEL 140 MMOL/L (136-145); TOTAL PROTEIN 6.3 G/DL (5.7-8.2)
[2023-01-26 07:37] VITALS: BP 163/59; TEMP 97.7; O2SAT 95
[2023-01-26] MEDS ORDERED: HEPARIN 1,000UNITS/ML 10ML VIAL (FOR RADIOLOGY & DIALYSIS ONLY) IV PRN (07:40)
[2023-01-26] MEDS ORDERED: SODIUM CHLORIDE 0.9% 1000ML IV PRN (07:40)
[2023-01-26] MEDS ORDERED: HEPARIN 1,000UNITS/ML 10ML VIAL (FOR RADIOLOGY & DIALYSIS ONLY) XX SCH (07:40)
[2023-01-26] MEDS ORDERED: LIDOCAINE 1% SDV 5ML VIAL SC PRN (07:40)
[2023-01-26] MEDS: TIOTROPIUM INHALER/CAPSULE (SPIRIVA) INH SCH (07:54)
[2023-01-26] MEDS: BUDESONIDE 0.5 MG/2 ML INHALATION SUSPENSION INH SCH ×2 (07:54→19:13)
[2023-01-26] MEDS: SYMBICORT 160/4.5MCG INHALER 6GM INH SCH ×2 (07:55→19:13)
[2023-01-26] MEDS: SEVELAMER CARBONATE PO SCH ×3 (08:00→17:39)
[2023-01-26] MEDS: CETIRIZINE (ZyrTEC) 10 MG TAB PO SCH (08:03)
[2023-01-26] MEDS: LIDOCAINE 5% (LIDODERM) PATCH TOP SCH (08:03)
[2023-01-26] MEDS: ATORVASTATIN 20 MG TAB PO SCH (08:03)
[2023-01-26] MEDS: CINACALCET 30 MG TAB (SENSIPAR) PO SCH (08:03)
[2023-01-26] MEDS: VENLAFAXINE **XR** 75MG CAPSULE PO SCH (08:03)
[2023-01-26] MEDS: INSULIN LISPRO (NovoLOG) PER UNIT SC SCH ×4 (08:04→20:16)
[2023-01-26] MEDS: LOSARTAN 50MG TABLET PO SCH (12:18)
[2023-01-26 12:45] VITALS: BP 141/73; TEMP 97.3; O2SAT 95
[2023-01-26] MEDS: DOCUSATE SODIUM 100MG CAPSULE PO PRN (14:50)
[2023-01-26] MEDS ORDERED: ONDANSETRON 4MG 2ML VIAL IV PRN (14:55)
[2023-01-26] MEDS ORDERED: ONDANSETRON 4MG 2ML VIAL As Ordered ONE (14:58)
[2023-01-26 15:51] VITALS: BP 137/61; TEMP 97.2; O2SAT 94
[2023-01-26 20:00] VITALS: BP 145/66; TEMP 97.3; O2SAT 93
[2023-01-26] MEDS: traMADol ER 100MG TABLET (ULTRAM ER) PO SCH (20:15)
[2023-01-26] MEDS: LEVEMIR (INSULIN DETEMIR) 1 UNITS/0.01ML SC SCH (20:15)
[2023-01-26] MEDS: tiZANidine 4 MG TAB PO SCH (20:16)
[2023-01-26] MEDS: METOPROLOL SUCC (TopROL XL) 50MG **XL** TAB PO SCH (20:16)
[2023-01-27] VITALS: BP 114/51; TEMP 96.3; O2SAT 95
[2023-01-27 00:01] VITALS: TEMP 97.6
[2023-01-27] MEDS: IPRATROPIUM 0.5MG/ALBUTEROL 2.5MG INH SOL UD 3ML (DUONEB) NEB SCH ×2 (00:58→08:28)
[2023-01-27 04:00] VITALS: BP 145/71; TEMP 96.4; O2SAT 97
[2023-01-27 04:05] VITALS: TEMP 97.7
[2023-01-27] MEDS: LEVOTHYROXINE 25MCG TABLET (0.025MG) PO SCH (05:12)
[2023-01-27] MEDS: LEVOTHYROXINE 150MCG TABLET (0.15MG) PO SCH (05:12)
[2023-01-27] MEDS: HEPARIN SOD (PORCINE) 5000UNITS/ML 1ML VIAL/SYRINGE SC SCH (05:12)
[2023-01-27 06:47] LABS: HEMATOCRIT 29.8 % (36.0-47.0); HEMOGLOBIN 8.7 g/dl (12.0-15.5); MEAN CORPUSCULAR HEMOGLOBIN 27.4 pg (27.0-33.0); MEAN CORPUSCULAR HGB CONC 29.2 g/dl (32.0-36.5); MEAN CORPUSCULAR VOLUME 93.7 fl (80.0-96.0); PLATELET COUNT, AUTOMATED 178 10^3/uL (150-450); RED BLOOD COUNT 3.18 10^6/uL (4.00-5.40); WHITE BLOOD COUNT 7.5 10^3/uL (4.0-10.0)
[2023-01-27 07:19] LABS: ALBUMIN 2.8 G/DL (3.2-5.2); ALKALINE PHOSPHATASE 80 U/L (46-116); ALT/SGPT < 9 U/L (7.0-40); AST/SGOT < 8 U/L (<34); BILIRUBIN,TOTAL 0.3 MG/DL (0.3-1.2); BLOOD UREA NITROGEN 30 MG/DL (9-23); CARBON DIOXIDE LEVEL 28 MMOL/L (20-31); CHLORIDE LEVEL 102 MMOL/L (98-107); CREATININE FOR GFR 5.36 MG/DL (0.55-1.30); GLOMERULAR FILTRATION RATE 8.6 (>45); GLUCOSE, FASTING 117 MG/DL (74-106); POTASSIUM SERUM 4.4 MMOL/L (3.5-5.1); SODIUM LEVEL 140 MMOL/L (136-145); TOTAL PROTEIN 6.3 G/DL (5.7-8.2)
[2023-01-27] MEDS: INSULIN LISPRO (NovoLOG) PER UNIT SC SCH (07:30)
[2023-01-27] MEDS: LIDOCAINE 5% (LIDODERM) PATCH TOP SCH (08:03)
[2023-01-27 08:04] VITALS: BP 156/70
[2023-01-27] MEDS: LOSARTAN 50MG TABLET PO SCH (08:04)
[2023-01-27] MEDS: CETIRIZINE (ZyrTEC) 10 MG TAB PO SCH (08:04)
[2023-01-27] MEDS: SEVELAMER CARBONATE PO SCH (08:04)
[2023-01-27] MEDS: VENLAFAXINE **XR** 75MG CAPSULE PO SCH (08:04)
[2023-01-27] MEDS: CINACALCET 30 MG TAB (SENSIPAR) PO SCH (08:04)
[2023-01-27] MEDS: ATORVASTATIN 20 MG TAB PO SCH (08:04)
[2023-01-27 08:06] VITALS: BP 156/70; TEMP 97; O2SAT 95
[2023-01-27] MEDS: SYMBICORT 160/4.5MCG INHALER 6GM INH SCH (08:28)
[2023-01-27] MEDS: BUDESONIDE 0.5 MG/2 ML INHALATION SUSPENSION INH SCH (08:28)
[2023-01-27] MEDS: TIOTROPIUM INHALER/CAPSULE (SPIRIVA) INH SCH (08:28)
== END 2023-01-27 11:25 | disposition home health service (06) | DRG 203 ==
LOC: M ED 17:48 → M ED INP 23:14 → ENRESERV 01-25 10:58 → M PCU 01-25 12:52
PROVIDERS: ADMIT Internal Medicine; ATTEND Internal Medicine
PROC: 5A1D70Z Performance of Urinary Filtration, Intermittent, Less than 6 Hours Per Day (ICD-10-PCS; principal; 2023-01-26)
DX: M94.0 Chondrocostal junction syndrome [Tietze] (principal); I13.2 Hypertensive heart and chronic kidney disease with heart failure and with stage 5 chronic kidney disease, or end stage renal disease; J96.11 Chronic respiratory failure with hypoxia; N25.81 Secondary hyperparathyroidism of renal origin; I27.20 Pulmonary hypertension, unspecified; N18.6 End stage renal disease; E11.22 Type 2 diabetes mellitus with diabetic chronic kidney disease; I71.21 Aneurysm of the ascending aorta, without rupture; I50.22 Chronic systolic (congestive) heart failure; Z99.81 Dependence on supplemental oxygen; E87.70 Fluid overload, unspecified; D50.9 Iron deficiency anemia, unspecified; E03.9 Hypothyroidism, unspecified; I35.0 Nonrheumatic aortic (valve) stenosis; J44.9 Chronic obstructive pulmonary disease, unspecified; I16.1 Hypertensive emergency; J45.909 Unspecified asthma, uncomplicated; F41.9 Anxiety disorder, unspecified; D63.1 Anemia in chronic kidney disease; R26.81 Unsteadiness on feet; M54.9 Dorsalgia, unspecified; G89.29 Other chronic pain; F32.A Depression, unspecified; G47.33 Obstructive sleep apnea (adult) (pediatric); Z87.891 Personal history of nicotine dependence; Z99.2 Dependence on renal dialysis; Z91.158 Patient's noncompliance with renal dialysis for other reason; Z91.119 Patient's noncompliance with dietary regimen due to unspecified reason

== ENCOUNTER → 2023-01-24 | Outpatient (CLI) | payer OTHER ==
[~2023-01-24] MED LIST changes: +LEVO1TAB39 PO; +TIZA1TAB12 PO; +TREL1AER INH
== END ==
LOC: M PLAIMG 09:13
PROVIDERS: ATTEND Internal Medicine Critical Care Medicine
DX: R91.8 Other nonspecific abnormal finding of lung field (principal)

== ENCOUNTER 2023-01-29 05:17 | Emergency (ER) | payer OTHER ==
[~2023-01-29] VITALS: Ht 170.2 cm; Wt 108.6 kg
[~2023-01-29 05:17] MED LIST changes: +TIZA1TAB12 PO; +TREL1AER INH
[2023-01-29 06:07] LABS: BASO % 0.4 % (0.0-1.0); EOS # 0.2 10^3/uL (0.0-0.5); EOS % 1.8 % (0.0-3.0); HEMATOCRIT 30.7 % (36.0-47.0); HEMOGLOBIN 9.2 g/dl (12.0-15.5); LYMPH # 0.5 10^3/uL (1.5-5.0); LYMPH % 5.1 % (24.0-44.0); MEAN CORPUSCULAR HEMOGLOBIN 27.7 pg (27.0-33.0); MEAN CORPUSCULAR VOLUME 92.5 fl (80.0-96.0); MONO # 0.6 10^3/uL (0.0-0.8); MONO % 6.2 % (2.0-8.0); NEUTROPHILS # 7.9 10^3/uL (1.5-8.5); NEUTROPHILS % 85.2 % (36.0-66.0); PLATELET COUNT, AUTOMATED 169 10^3/uL (150-450); RED BLOOD COUNT 3.32 10^6/uL (4.00-5.40); WHITE BLOOD COUNT 9.2 10^3/uL (4.0-10.0)
[2023-01-29 06:45] LABS: CK-MB VALUE MASS 1.8 NG/ML (<3.6); CREATININE FOR GFR 8.9 MG/DL (0.55-1.30); GLOMERULAR FILTRATION RATE 4.8 (>45); MB/CK RELATIVE INDEX 4.09 (< OR =4)
[2023-01-29 09:59] LABS: CK-MB VALUE MASS 1.4 NG/ML (<3.6)
[2023-01-29 10:09] LABS: MB/CK RELATIVE INDEX 3.25 (< OR =4)
[2023-01-29 11:26] VITALS: BP 147/69; TEMP 96.9; O2SAT 97
[2023-01-29 12:19] LABS: RSV AMPLIFICATION NEGATIVE (NEGATIVE)
== END 2023-01-29 12:44 | disposition home or self-care (01) ==
LOC: M ED 05:17
DX: N18.6 End stage renal disease (principal); Z99.2 Dependence on renal dialysis; E87.70 Fluid overload, unspecified; R07.89 Other chest pain

== ENCOUNTER 2023-01-30 02:17 | Observation (INO) | payer OTHER ==
[~2023-01-30] VITALS: Ht 170.2 cm; Wt 110.0 kg
[2023-01-30 02:54] LABS: BASO # 0.1 10^3/uL (0.0-0.2); BASO % 0.5 % (0.0-1.0); EOS # 0.2 10^3/uL (0.0-0.5); EOS % 2.3 % (0.0-3.0); HEMATOCRIT 30.4 % (36.0-47.0); HEMOGLOBIN 9.3 g/dl (12.0-15.5); LYMPH # 0.8 10^3/uL (1.5-5.0); LYMPH % 8.1 % (24.0-44.0); MEAN CORPUSCULAR HEMOGLOBIN 28.2 pg (27.0-33.0); MEAN CORPUSCULAR HGB CONC 30.6 g/dl (32.0-36.5); MEAN CORPUSCULAR VOLUME 92.1 fl (80.0-96.0); MONO # 0.7 10^3/uL (0.0-0.8); MONO % 7.3 % (2.0-8.0); NEUTROPHILS # 7.5 10^3/uL (1.5-8.5); NEUTROPHILS % 80.7 % (36.0-66.0); PLATELET COUNT, AUTOMATED 217 10^3/uL (150-450); WHITE BLOOD COUNT 9.3 10^3/uL (4.0-10.0)
[2023-01-30 03:01] LABS: VENOUS BASE EXCESS -6.4 (-2.0-2.0); VENOUS HCO3 20.6 MMOL/L (23.0-27.0); VENOUS O2 SATURATION 98.5 % (60.0-80.0); VENOUS PARTIAL PRESSURE CO2 47.3 mmHg (38.0-50.0); VENOUS PARTIAL PRESSURE O2 152.6 mmHg (30.0-50.0); VENOUS PH 7.256 UNITS (7.330-7.430); VENOUS STANDARD HCO3 19.2 MMOL/L
[2023-01-30] MEDS ORDERED: IPRATROPIUM 0.5MG/ALBUTEROL 2.5MG INH SOL UD 3ML (DUONEB) NEB ONE ×2 (03:05)
[2023-01-30 03:08] LABS: ABG BASE EXCESS -6.5 (-2.0-2.0); ABG HCO3 19.7 MMOL/L (22.0-26.0); ABG O2 SATURATION 99.9 % (95.0-99.0); ABG PARTIAL PRESSURE CO2 42.2 mmHg (35.0-45.0); ABG STANDARD HCO3 19.1 MMOL/L. (22.0-26.0); ABG pH (ARTERIAL) 7.287 UNITS (7.350-7.450)
[2023-01-30 03:30] LABS: BILIRUBIN,DIRECT 0.1 MG/DL (<0.4); BILIRUBIN,TOTAL 0.3 MG/DL (0.3-1.2); CALCIUM LEVEL 10.3 MG/DL (8.3-10.6); CREATININE FOR GFR 9.91 MG/DL (0.55-1.30); GLOMERULAR FILTRATION RATE 4.3 (>45); POTASSIUM SERUM 5.6 MMOL/L (3.5-5.1); RSV AMPLIFICATION NEGATIVE (NEGATIVE); TOTAL PROTEIN 6.6 G/DL (5.7-8.2)
[2023-01-30 03:37] LABS: CK-MB VALUE MASS 2.1 NG/ML (<3.6)
[2023-01-30 03:47] LABS: MB/CK RELATIVE INDEX 4.46 (< OR =4)
[2023-01-30] MEDS ORDERED: **hydrALAZINE** 10 MG TAB PO ONE (04:50)
[2023-01-30 05:13] LABS: CK-MB VALUE MASS 2.3 NG/ML (<3.6)
[2023-01-30 05:19] LABS: MB/CK RELATIVE INDEX 4.5 (< OR =4)
[2023-01-30] MEDS ORDERED: MED REC IN PROGRESS XX SCH (07:10)
[2023-01-30] MEDS ORDERED: FLUTICASONE PROP 0.05% NASAL SPRAY 16 GM (FLONASE) NARES PRN (07:40)
[2023-01-30] MEDS ORDERED: ALBUTEROL SULFATE 2.5MG/0.5ML INH NEB SOLN INH PRN (07:40)
[2023-01-30] MEDS ORDERED: HOME MED LIST COMPLETE! XX SCH (07:40)
[2023-01-30] MEDS ORDERED: ALBUTEROL 90 MCG/ACT 8GM HFA INHALER INH PRN (07:40)
[2023-01-30] MEDS ORDERED: (RENVELA) SEVELAMER **CARBONate** 800 MG TAB PO SCH (08:00)
[2023-01-30] MEDS: VENLAFAXINE **XR** 75MG CAPSULE PO SCH (08:20)
[2023-01-30] MEDS: CETIRIZINE (ZyrTEC) 10 MG TAB PO SCH (08:20)
[2023-01-30] MEDS: ATORVASTATIN 20 MG TAB PO SCH (08:21)
[2023-01-30] MEDS: **hydrALAZINE** 10 MG TAB PO SCH ×3 (08:21→22:04)
[2023-01-30] MEDS: PERCOCET 5MG/325MG TAB PO PRN ×2 (08:22→18:16)
[2023-01-30] MEDS ORDERED: SODIUM CHLORIDE 0.9% 1000ML IV PRN (08:40)
[2023-01-30] MEDS ORDERED: HEPARIN 1,000UNITS/ML 10ML VIAL (FOR RADIOLOGY & DIALYSIS ONLY) IV PRN (08:40)
[2023-01-30] MEDS ORDERED: HEPARIN 1,000UNITS/ML 10ML VIAL (FOR RADIOLOGY & DIALYSIS ONLY) XX SCH (08:40)
[2023-01-30] MEDS ORDERED: GLUCAGON INJ 1MG VIAL SC PRN (08:40)
[2023-01-30] MEDS ORDERED: DEXTROSE 50% 50ML SYRINGE IV PRN (08:40)
[2023-01-30] MEDS ORDERED: LIDOCAINE 1% SDV 5ML VIAL SC PRN (08:40)
[2023-01-30] MEDS ORDERED: GLUCOSE 4GM CHEW TABLET PO PRN (08:40)
[2023-01-30] MEDS: INSULIN LISPRO (NovoLOG) PER UNIT SC SCH ×4 (08:53→22:05)
[2023-01-30] MEDS: LEVOTHYROXINE 100MCG TABLET (0.1MG) PO SCH (08:53)
[2023-01-30] MEDS: LEVOTHYROXINE 75MCG TABLET (0.075MG) PO SCH (08:53)
[2023-01-30] MEDS: BUDESONIDE 0.5 MG/2 ML INHALATION SUSPENSION INH SCH ×2 (08:54→19:38)
[2023-01-30] MEDS: TIOTROPIUM INHALER/CAPSULE (SPIRIVA) INH SCH (08:55)
[2023-01-30] MEDS: ADVAIR HFA 115/21MCG INHALER INH SCH ×2 (08:56→19:38)
[2023-01-30] MEDS ORDERED: PILL CUTTER 1 EACH XX PRN (09:50)
[2023-01-30] MEDS ORDERED: ISOVUE-370 76% 100ML VIAL As Ordered ONE ×2 (10:14→10:39)
[2023-01-30] MEDS ORDERED: methylPREDNISolone 40MG 1ML VIAL IV SCH (11:00)
[2023-01-30] MEDS: CINACALCET 30 MG TAB (SENSIPAR) PO SCH (12:02)
[2023-01-30] MEDS: HEPARIN SOD (PORCINE) 5000UNITS/ML 1ML VIAL/SYRINGE SQ SCH ×2 (14:00→22:04)
[2023-01-30 17:55] VITALS: BP 194/86; TEMP 97.4; O2SAT 94
[2023-01-30 18:34] LABS: PROCALCITONIN 0.32 ng/ml
[2023-01-30] MEDS: IPRATROPIUM 0.5MG/ALBUTEROL 2.5MG INH SOL UD 3ML (DUONEB) NEB SCH (19:37)
[2023-01-30 20:16] VITALS: BP 177/79; TEMP 98.6; O2SAT 96
[2023-01-30] MEDS: METOPROLOL SUCC (TopROL XL) 50MG **XL** TAB PO SCH (22:04)
[2023-01-30] MEDS: traMADol ER 100MG TABLET (ULTRAM ER) PO SCH (22:04)
[2023-01-30] MEDS: tiZANidine 4 MG TAB PO SCH (22:05)
[2023-01-30] MEDS: LEVEMIR (INSULIN DETEMIR) 1 UNITS/0.01ML SC SCH (22:06)
[2023-01-31] VITALS (7 sets, daily range): BP systolic 134–150; BP diastolic 61–72; TEMP 97.5–98.3; O2SAT 96–100
[2023-01-31] MEDS: IPRATROPIUM 0.5MG/ALBUTEROL 2.5MG INH SOL UD 3ML (DUONEB) NEB SCH ×4 (02:31→19:59)
[2023-01-31 05:29] LABS: HEMATOCRIT 27.2 % (36.0-47.0); HEMOGLOBIN 8.3 g/dl (12.0-15.5); MEAN CORPUSCULAR HGB CONC 30.5 g/dl (32.0-36.5); MEAN CORPUSCULAR VOLUME 91.9 fl (80.0-96.0); PLATELET COUNT, AUTOMATED 180 10^3/uL (150-450); RED BLOOD COUNT 2.96 10^6/uL (4.00-5.40); WHITE BLOOD COUNT 8.6 10^3/uL (4.0-10.0)
[2023-01-31 05:52] LABS: CALCIUM LEVEL 9.6 MG/DL (8.3-10.6); CREATININE FOR GFR 6.78 MG/DL (0.55-1.30); GLOMERULAR FILTRATION RATE 6.6 (>45); MAGNESIUM LEVEL 2.6 MG/DL (1.8-2.4)
[2023-01-31] MEDS ORDERED: LEVOTHYROXINE 75MCG TABLET (0.075MG) PO SCH (06:00)
[2023-01-31] MEDS: LEVOTHYROXINE 75MCG TABLET (0.075MG) PO SCH (06:37)
[2023-01-31] MEDS: LEVOTHYROXINE 100MCG TABLET (0.1MG) PO SCH (06:37)
[2023-01-31] MEDS: HEPARIN SOD (PORCINE) 5000UNITS/ML 1ML VIAL/SYRINGE SQ SCH ×3 (06:38→20:40)
[2023-01-31] MEDS: tiZANidine 4 MG TAB PO PRN (06:39)
[2023-01-31] MEDS ORDERED: SODIUM CHLORIDE 0.9% 1000ML IV PRN (06:55)
[2023-01-31] MEDS ORDERED: HEPARIN 1,000UNITS/ML 10ML VIAL (FOR RADIOLOGY & DIALYSIS ONLY) IV PRN (06:55)
[2023-01-31] MEDS ORDERED: LIDOCAINE 1% SDV 5ML VIAL SC PRN (06:55)
[2023-01-31] MEDS ORDERED: HEPARIN 1,000UNITS/ML 10ML VIAL (FOR RADIOLOGY & DIALYSIS ONLY) XX SCH (06:55)
[2023-01-31] MEDS ORDERED: DARBEPOETIN 100MCG/0.5ML *DIALYSIS* SYRINGE IV SCH (06:55)
[2023-01-31] MEDS: ADVAIR HFA 115/21MCG INHALER INH SCH ×2 (07:30→19:58)
[2023-01-31] MEDS: TIOTROPIUM INHALER/CAPSULE (SPIRIVA) INH SCH (07:30)
[2023-01-31] MEDS: BUDESONIDE 0.5 MG/2 ML INHALATION SUSPENSION INH SCH ×2 (07:31→20:04)
[2023-01-31] MEDS: CINACALCET 30 MG TAB (SENSIPAR) PO SCH (08:35)
[2023-01-31] MEDS: INSULIN LISPRO (NovoLOG) PER UNIT SC SCH ×4 (08:35→20:38)
[2023-01-31] MEDS: ATORVASTATIN 20 MG TAB PO SCH (08:35)
[2023-01-31] MEDS: CETIRIZINE (ZyrTEC) 10 MG TAB PO SCH (08:36)
[2023-01-31] MEDS: VENLAFAXINE **XR** 75MG CAPSULE PO SCH (08:36)
[2023-01-31] MEDS: **hydrALAZINE** 10 MG TAB PO SCH ×3 (08:36→20:39)
[2023-01-31] MEDS: PERCOCET 5MG/325MG TAB PO PRN (08:50)
[2023-01-31] MEDS: predniSONE 20 MG TAB PO SCH (13:30)
[2023-01-31] MEDS: SEVELAMER PO SCH ×2 (13:31→17:26)
[2023-01-31] MEDS: LEVEMIR (INSULIN DETEMIR) 1 UNITS/0.01ML SC SCH (20:38)
[2023-01-31] MEDS: traMADol ER 100MG TABLET (ULTRAM ER) PO SCH (20:39)
[2023-01-31] MEDS: tiZANidine 4 MG TAB PO SCH (20:40)
[2023-01-31] MEDS: METOPROLOL SUCC (TopROL XL) 50MG **XL** TAB PO SCH (20:40)
[2023-02-01] MEDS: IPRATROPIUM 0.5MG/ALBUTEROL 2.5MG INH SOL UD 3ML (DUONEB) NEB SCH ×4 (02:47→20:14)
[2023-02-01] MEDS: tiZANidine 4 MG TAB PO PRN (03:34)
[2023-02-01 04:00] VITALS: BP 168/80; TEMP 96.9; O2SAT 97
[2023-02-01 04:53] VITALS: BP 150/72
[2023-02-01] MEDS ORDERED: MIRALAX *UNIT DOSE* 17GM PACKET PO PRN (05:05)
[2023-02-01] MEDS ORDERED: MOM 30ML SUSPENSION UDC PO PRN (05:05)
[2023-02-01] MEDS: SENOKOT S TAB PO SCH ×3 (05:11→21:29)
[2023-02-01 05:30] LABS: HEMATOCRIT 28.9 % (36.0-47.0); HEMOGLOBIN 8.8 g/dl (12.0-15.5); MEAN CORPUSCULAR HEMOGLOBIN 27.8 pg (27.0-33.0); MEAN CORPUSCULAR HGB CONC 30.4 g/dl (32.0-36.5); MEAN CORPUSCULAR VOLUME 91.2 fl (80.0-96.0); PLATELET COUNT, AUTOMATED 186 10^3/uL (150-450); RED BLOOD COUNT 3.17 10^6/uL (4.00-5.40)
[2023-02-01 05:52] LABS: CALCIUM LEVEL 9.7 MG/DL (8.3-10.6); CREATININE FOR GFR 5.21 MG/DL (0.55-1.30); GLOMERULAR FILTRATION RATE 8.9 (>45); MAGNESIUM LEVEL 2.3 MG/DL (1.8-2.4); PHOSPHORUS LEVEL 5.9 MG/DL (2.4-5.1); POTASSIUM SERUM 4.7 MMOL/L (3.5-5.1)
[2023-02-01] MEDS: LEVOTHYROXINE 75MCG TABLET (0.075MG) PO SCH (06:07)
[2023-02-01] MEDS: LEVOTHYROXINE 100MCG TABLET (0.1MG) PO SCH (06:07)
[2023-02-01] MEDS: HEPARIN SOD (PORCINE) 5000UNITS/ML 1ML VIAL/SYRINGE SQ SCH ×3 (06:10→21:31)
[2023-02-01] MEDS: TIOTROPIUM INHALER/CAPSULE (SPIRIVA) INH SCH (07:14)
[2023-02-01] MEDS: ADVAIR HFA 115/21MCG INHALER INH SCH ×2 (07:16→20:14)
[2023-02-01] MEDS: BUDESONIDE 0.5 MG/2 ML INHALATION SUSPENSION INH SCH ×2 (07:21→20:14)
[2023-02-01] MEDS: INSULIN LISPRO (NovoLOG) PER UNIT SC SCH ×4 (07:30→21:36)
[2023-02-01] MEDS: SEVELAMER PO SCH ×3 (08:00→17:39)
[2023-02-01 08:08] VITALS: BP 144/64; TEMP 97.6; O2SAT 100
[2023-02-01] MEDS: CINACALCET 30 MG TAB (SENSIPAR) PO SCH (08:29)
[2023-02-01] MEDS: ATORVASTATIN 20 MG TAB PO SCH (08:30)
[2023-02-01] MEDS: **hydrALAZINE** 10 MG TAB PO SCH ×3 (08:30→21:30)
[2023-02-01] MEDS: VENLAFAXINE **XR** 75MG CAPSULE PO SCH (08:30)
[2023-02-01] MEDS: predniSONE 20 MG TAB PO SCH (08:31)
[2023-02-01] MEDS: CETIRIZINE (ZyrTEC) 10 MG TAB PO SCH (08:31)
[2023-02-01 12:18] VITALS: BP 158/67; TEMP 98.1; O2SAT 99
[2023-02-01] MEDS: PERCOCET 5MG/325MG TAB PO PRN (13:12)
[2023-02-01 17:42] VITALS: BP 154/68; TEMP 98.2; O2SAT 97
[2023-02-01 19:50] VITALS: BP 124/58; TEMP 97; O2SAT 96
[2023-02-01] MEDS: traMADol ER 100MG TABLET (ULTRAM ER) PO SCH (21:29)
[2023-02-01] MEDS: tiZANidine 4 MG TAB PO SCH (21:30)
[2023-02-01] MEDS: METOPROLOL SUCC (TopROL XL) 50MG **XL** TAB PO SCH (21:31)
[2023-02-01] MEDS: LEVEMIR (INSULIN DETEMIR) 1 UNITS/0.01ML SC SCH (21:36)
[2023-02-02] VITALS (8 sets, daily range): BP systolic 130–169; BP diastolic 62–75; TEMP 97.6–97.9; O2SAT 97–99
[2023-02-02] MEDS: IPRATROPIUM 0.5MG/ALBUTEROL 2.5MG INH SOL UD 3ML (DUONEB) NEB SCH ×2 (01:06→07:37)
[2023-02-02 05:44] LABS: HEMATOCRIT 29.1 % (36.0-47.0); HEMOGLOBIN 8.7 g/dl (12.0-15.5); MEAN CORPUSCULAR HEMOGLOBIN 27.4 pg (27.0-33.0); MEAN CORPUSCULAR HGB CONC 29.9 g/dl (32.0-36.5); MEAN CORPUSCULAR VOLUME 91.8 fl (80.0-96.0); PLATELET COUNT, AUTOMATED 195 10^3/uL (150-450); RED BLOOD COUNT 3.17 10^6/uL (4.00-5.40); WHITE BLOOD COUNT 9.4 10^3/uL (4.0-10.0)
[2023-02-02] MEDS: HEPARIN SOD (PORCINE) 5000UNITS/ML 1ML VIAL/SYRINGE SQ SCH ×2 (05:59→14:19)
[2023-02-02] MEDS: CINACALCET 30 MG TAB (SENSIPAR) PO SCH (05:59)
[2023-02-02] MEDS: VENLAFAXINE **XR** 75MG CAPSULE PO SCH (06:00)
[2023-02-02] MEDS: ATORVASTATIN 20 MG TAB PO SCH (06:00)
[2023-02-02] MEDS: SENOKOT S TAB PO SCH (06:00)
[2023-02-02] MEDS: LEVOTHYROXINE 75MCG TABLET (0.075MG) PO SCH (06:00)
[2023-02-02] MEDS: LEVOTHYROXINE 100MCG TABLET (0.1MG) PO SCH (06:01)
[2023-02-02] MEDS: predniSONE 20 MG TAB PO SCH (06:02)
[2023-02-02] MEDS: SEVELAMER PO SCH ×2 (06:02→14:16)
[2023-02-02] MEDS: CETIRIZINE (ZyrTEC) 10 MG TAB PO SCH (06:02)
[2023-02-02] MEDS: **hydrALAZINE** 10 MG TAB PO SCH ×2 (06:03→16:27)
[2023-02-02 06:15] LABS: CALCIUM LEVEL 9.6 MG/DL (8.3-10.6); CREATININE FOR GFR 7.12 MG/DL (0.55-1.30); GLOMERULAR FILTRATION RATE 6.2 (>45); MAGNESIUM LEVEL 2.5 MG/DL (1.8-2.4); PHOSPHORUS LEVEL 7.6 MG/DL (2.4-5.1); POTASSIUM SERUM 4.7 MMOL/L (3.5-5.1)
[2023-02-02] MEDS: ADVAIR HFA 115/21MCG INHALER INH SCH (07:37)
[2023-02-02] MEDS: BUDESONIDE 0.5 MG/2 ML INHALATION SUSPENSION INH SCH (07:37)
[2023-02-02] MEDS: TIOTROPIUM INHALER/CAPSULE (SPIRIVA) INH SCH (07:37)
[2023-02-02] MEDS: INSULIN LISPRO (NovoLOG) PER UNIT SC SCH ×2 (07:57→14:19)
[2023-02-02] MEDS: tiZANidine 4 MG TAB PO PRN (08:07)
[2023-02-02] MEDS ORDERED: SODIUM CHLORIDE 0.9% 1000ML IV PRN (08:10)
[2023-02-02] MEDS ORDERED: HEPARIN 1,000UNITS/ML 10ML VIAL (FOR RADIOLOGY & DIALYSIS ONLY) XX SCH (08:10)
[2023-02-02] MEDS ORDERED: HEPARIN 1,000UNITS/ML 10ML VIAL (FOR RADIOLOGY & DIALYSIS ONLY) IV PRN (08:10)
[2023-02-02] MEDS ORDERED: ALBU8.5H INH (09:33)
[2023-02-02] MEDS ORDERED: DOXY-444 PO (09:33)
[2023-02-02] MEDS ORDERED: PRED20TA PO (09:33)
[2023-02-02] MEDS ORDERED: METO25TA PO (09:33)
[2023-02-02] MEDS ORDERED: PRED10TA2 PO (09:37)
[2023-02-02] MEDS ORDERED: TRAM100T21 PO (10:47)
[2023-02-02] MEDS ORDERED: SENN-52 PO (10:53)
[2023-02-02] MEDS ORDERED: PERCOCET PO (10:53)
[2023-02-02] MEDS ORDERED: cloNIDine 0.2 MG TAB PO ONE (14:30)
[2023-02-02] MEDS ORDERED: **hydrALAZINE** 10 MG TAB PO ONE (14:30)
[2023-02-02] MEDS: PERCOCET 5MG/325MG TAB PO PRN (15:28)
[2023-02-02] MEDS ORDERED: DOXYCYCLINE HYCLATE 100MG TABLET PO ONE (17:00)
== END 2023-02-02 17:13 | disposition home health service (06) ==
LOC: M ED 02:17 → M ED INP 02:18 → M PCU 17:51
PROVIDERS: ADMIT Internal Medicine; ATTEND Internal Medicine
DX: J96.21 Acute and chronic respiratory failure with hypoxia (principal); I11.0 Hypertensive heart disease with heart failure; I50.20 Unspecified systolic (congestive) heart failure; Z91.158 Patient's noncompliance with renal dialysis for other reason; I27.20 Pulmonary hypertension, unspecified; J44.1 Chronic obstructive pulmonary disease with (acute) exacerbation; R07.89 Other chest pain; R59.0 Localized enlarged lymph nodes; N18.6 End stage renal disease; D50.9 Iron deficiency anemia, unspecified; Z99.2 Dependence on renal dialysis; E11.22 Type 2 diabetes mellitus with diabetic chronic kidney disease; E03.9 Hypothyroidism, unspecified; M54.9 Dorsalgia, unspecified; G89.29 Other chronic pain; I71.21 Aneurysm of the ascending aorta, without rupture; I35.0 Nonrheumatic aortic (valve) stenosis; R45.850 Homicidal ideations; G47.33 Obstructive sleep apnea (adult) (pediatric); E66.01 Morbid (severe) obesity due to excess calories; Z99.81 Dependence on supplemental oxygen; E87.5 Hyperkalemia; F33.9 Major depressive disorder, recurrent, unspecified; F60.9 Personality disorder, unspecified; Z81.8 Family history of other mental and behavioral disorders; Z88.2 Allergy status to sulfonamides; Z88.8 Allergy status to other drugs, medicaments and biological substances; Z88.5 Allergy status to narcotic agent; Z79.899 Other long term (current) drug therapy; Z79.51 Long term (current) use of inhaled steroids; Z79.84 Long term (current) use of oral hypoglycemic drugs; Z79.2 Long term (current) use of antibiotics; Z79.890 Hormone replacement therapy; Z79.52 Long term (current) use of systemic steroids; Z79.891 Long term (current) use of opiate analgesic; Z87.891 Personal history of nicotine dependence
CPT/HCPCS: 36415; 71045; 71275; 80048; 80076; 82550; 82553; 82803; 83605; 83735; 83880; 84100; 84145; 85025; 85027; 87040; 87631; 93005; 93041; 94640; 94760; 96372; 96374; 96375; 97161; 99285; J0882; J1815; J2920; J7512; Q9967

== ENCOUNTER 2023-02-16 04:52 | Inpatient (IN) | payer OTHER ==
[~2023-02-16] VITALS: Ht 167.6 cm; Wt 117.3 kg
[~2023-02-16 04:52] MED LIST changes: +ALBU8.5H INH; +DOXY-444 PO; +METO25TA PO; +PERCOCET PO; +PRED10TA2 PO; +PRED20TA PO; +SENN-52 PO; +TRAM100T21 PO
[2023-02-16] MEDS ORDERED: FURO20TA2 PO (05:03)
[2023-02-16 05:53] LABS: BASO % 0.3 % (0.0-1.0); EOS # 0.1 10^3/uL (0.0-0.5); EOS % 1.2 % (0.0-3.0); HEMATOCRIT 27.9 % (36.0-47.0); HEMOGLOBIN 8.1 g/dl (12.0-15.5); LYMPH # 0.8 10^3/uL (1.5-5.0); LYMPH % 8.1 % (24.0-44.0); MEAN CORPUSCULAR HEMOGLOBIN 28.3 pg (27.0-33.0); MEAN CORPUSCULAR VOLUME 97.6 fl (80.0-96.0); MONO # 0.6 10^3/uL (0.0-0.8); MONO % 5.8 % (2.0-8.0); NEUTROPHILS # 8.4 10^3/uL (1.5-8.5); NEUTROPHILS % 83.7 % (36.0-66.0); PLATELET COUNT, AUTOMATED 130 10^3/uL (150-450); RED BLOOD COUNT 2.86 10^6/uL (4.00-5.40); WHITE BLOOD COUNT 10.1 10^3/uL (4.0-10.0)
[2023-02-16 06:16] LABS: ALBUMIN 2.9 G/DL (3.2-5.2); BILIRUBIN,DIRECT 0.1 MG/DL (<0.4); BILIRUBIN,TOTAL 0.3 MG/DL (0.3-1.2); CALCIUM LEVEL 9.1 MG/DL (8.3-10.6); CK-MB VALUE MASS 2.7 NG/ML (<3.6); CREATININE FOR GFR 7.25 MG/DL (0.55-1.30); GLOMERULAR FILTRATION RATE 6.1 (>45); POTASSIUM SERUM 4.6 MMOL/L (3.5-5.1); TOTAL PROTEIN 6.1 G/DL (5.7-8.2)
[2023-02-16 06:18] LABS: THYROID STIMULATING HORMONE 9.131 uIU/ML (0.55-4.78); THYROXINE (T4) 8.1 UG/DL (4.5-10.9)
[2023-02-16 06:25] LABS: RSV AMPLIFICATION NEGATIVE (NEGATIVE)
[2023-02-16 07:30] LABS: CK-MB VALUE MASS 3.1 NG/ML (<3.6)
[2023-02-16 07:32] LABS: MB/CK RELATIVE INDEX 7.38 (< OR =4)
[2023-02-16] MEDS ORDERED: FUROSEMIDE 100MG/10ML VIAL IV ONE (07:50)
[2023-02-16] MEDS ORDERED: IPRATROPIUM 0.5MG/ALBUTEROL 2.5MG INH SOL UD 3ML (DUONEB) NEB ONE (07:55)
[2023-02-16] MEDS ORDERED: MED REC IN PROGRESS XX SCH (08:55)
[2023-02-16] MEDS ORDERED: MED REC CURRENTLY UNOBTAINABLE XX SCH (09:35)
[2023-02-16 10:45] VITALS: BP 179/80; TEMP 97.1; O2SAT 94
[2023-02-16 12:06] VITALS: BP 182/78; TEMP 96.8; O2SAT 98
[2023-02-16] MEDS ORDERED: LIDOCAINE 1% SDV 5ML VIAL SC PRN (12:30)
[2023-02-16] MEDS ORDERED: HEPARIN 1,000UNITS/ML 10ML VIAL (FOR RADIOLOGY & DIALYSIS ONLY) IV PRN (12:30)
[2023-02-16] MEDS ORDERED: HEPARIN 1,000UNITS/ML 10ML VIAL (FOR RADIOLOGY & DIALYSIS ONLY) XX SCH (12:30)
[2023-02-16] MEDS ORDERED: SODIUM CHLORIDE 0.9% 1000ML IV PRN (12:30)
[2023-02-16] MEDS ORDERED: DEXTROSE 50% 50ML SYRINGE IV PRN (16:55)
[2023-02-16] MEDS: HEPARIN SOD (PORCINE) 5000UNITS/ML 1ML VIAL/SYRINGE SC SCH ×3 (16:55→18:20)
[2023-02-16] MEDS ORDERED: GLUCAGON INJ 1MG VIAL SC PRN (16:55)
[2023-02-16] MEDS ORDERED: GLUCOSE 4GM CHEW TABLET PO PRN (16:55)
[2023-02-16 17:54] VITALS: BP 188/84; TEMP 96.7; O2SAT 93
[2023-02-16] MEDS: INSULIN LISPRO (NovoLOG) PER UNIT SC SCH ×2 (18:18→21:04)
[2023-02-16] MEDS ORDERED: PRED10TA2 PO (18:33)
[2023-02-16] MEDS ORDERED: SENN-121 PO (18:33)
[2023-02-16] MEDS ORDERED: OXYC-517 PO (18:33)
[2023-02-16] MEDS ORDERED: METO5TA PO (18:33)
[2023-02-16] MEDS ORDERED: DULO1CAP6 PO (18:33)
[2023-02-16] MEDS ORDERED: LOSA50TA28 PO (18:33)
[2023-02-16] MEDS ORDERED: HOME MED LIST COMPLETE! XX SCH (18:35)
[2023-02-16] MEDS ORDERED: FLUTICASONE PROP 0.05% NASAL SPRAY 16 GM (FLONASE) NARES PRN (18:55)
[2023-02-16] MEDS ORDERED: ALBUTEROL 90 MCG/ACT 8GM HFA INHALER INH PRN (18:55)
[2023-02-16] MEDS ORDERED: predniSONE 10MG TAB PO SCH (18:55)
[2023-02-16] MEDS ORDERED: PILL CUTTER 1 EACH XX PRN (19:25)
[2023-02-16 20:00] VITALS: BP 178/74; TEMP 97.2; O2SAT 94
[2023-02-16] MEDS ORDERED: SYMBICORT 160/4.5MCG INHALER 6GM INH SCH (20:00)
[2023-02-16] MEDS: ALBUTEROL SULFATE 2.5MG/0.5ML INH NEB SOLN INH PRN (20:49)
[2023-02-16] MEDS: METOPROLOL SUCC (TopROL XL) 50MG **XL** TAB PO SCH (21:03)
[2023-02-16] MEDS: oxyCODONE 5MG TAB PO PRN (21:04)
[2023-02-16] MEDS: **hydrALAZINE** 10 MG TAB PO SCH (21:04)
[2023-02-16] MEDS: SENOKOT S TAB PO SCH (21:04)
[2023-02-16] MEDS: DULoxetine 30MG CAPSULE (CYMBALTA) PO SCH (21:05)
[2023-02-16] MEDS ORDERED: traMADol 50 MG TAB PO ONE (21:15)
[2023-02-17] MEDS ORDERED: UNRESOLVED PATIENT OWN MED ORDER XX SCH (00:01)
[2023-02-17 00:03] VITALS: BP 174/80; TEMP 98.1; O2SAT 98
[2023-02-17] MEDS: HEPARIN SOD (PORCINE) 5000UNITS/ML 1ML VIAL/SYRINGE SC SCH ×3 (00:55→17:28)
[2023-02-17] MEDS: tiZANidine 4 MG TAB PO PRN (01:51)
[2023-02-17] MEDS: ALBUTEROL SULFATE 2.5MG/0.5ML INH NEB SOLN INH PRN ×3 (03:01→21:27)
[2023-02-17 04:54] VITALS: BP 144/76; TEMP 98; O2SAT 96
[2023-02-17] MEDS: LEVOTHYROXINE 75MCG TABLET (0.075MG) PO SCH (06:33)
[2023-02-17] MEDS: LEVOTHYROXINE 100MCG TABLET (0.1MG) PO SCH (06:33)
[2023-02-17] MEDS: oxyCODONE 5MG TAB PO PRN (06:34)
[2023-02-17] MEDS: ADVAIR HFA 115/21MCG INHALER INH SCH ×2 (06:54→19:36)
[2023-02-17] MEDS: TIOTROPIUM INHALER/CAPSULE (SPIRIVA) INH SCH (06:54)
[2023-02-17 07:06] LABS: HEMATOCRIT 30.2 % (36.0-47.0); MEAN CORPUSCULAR HEMOGLOBIN 28.7 pg (27.0-33.0); MEAN CORPUSCULAR HGB CONC 29.8 g/dl (32.0-36.5); MEAN CORPUSCULAR VOLUME 96.2 fl (80.0-96.0); PLATELET COUNT, AUTOMATED 158 10^3/uL (150-450); RED BLOOD COUNT 3.14 10^6/uL (4.00-5.40); WHITE BLOOD COUNT 11.5 10^3/uL (4.0-10.0)
[2023-02-17 07:20] LABS: CALCIUM LEVEL 10.2 MG/DL (8.3-10.6); CREATININE FOR GFR 4.82 MG/DL (0.55-1.30); GLOMERULAR FILTRATION RATE 9.8 (>45); POTASSIUM SERUM 4.3 MMOL/L (3.5-5.1)
[2023-02-17 07:39] VITALS: BP 149/70; TEMP 96.5; O2SAT 96
[2023-02-17] MEDS: INSULIN LISPRO (NovoLOG) PER UNIT SC SCH ×4 (07:46→21:00)
[2023-02-17] MEDS ORDERED: (RENVELA) SEVELAMER **CARBONate** 800 MG TAB PO SCH (08:00)
[2023-02-17] MEDS ORDERED: BUDESONIDE 0.5 MG/2 ML INHALATION SUSPENSION INH SCH (08:00)
[2023-02-17] MEDS: LIDOCAINE 5% (LIDODERM) PATCH TOP SCH (08:24)
[2023-02-17] MEDS: FUROSEMIDE 20 MG TAB PO SCH (08:25)
[2023-02-17] MEDS: metOLazone 5 MG TAB PO SCH (08:25)
[2023-02-17] MEDS: **hydrALAZINE** 10 MG TAB PO SCH ×2 (08:26→22:02)
[2023-02-17] MEDS: LOSARTAN 50MG TABLET PO SCH (08:26)
[2023-02-17] MEDS: DULoxetine 30MG CAPSULE (CYMBALTA) PO SCH ×2 (08:27→22:01)
[2023-02-17] MEDS: ATORVASTATIN 20 MG TAB PO SCH (08:27)
[2023-02-17] MEDS: VENLAFAXINE **XR** 75MG CAPSULE PO SCH (08:28)
[2023-02-17] MEDS: SENOKOT S TAB PO SCH ×2 (08:28→22:02)
[2023-02-17] MEDS: CINACALCET 30 MG TAB (SENSIPAR) PO SCH (08:43)
[2023-02-17] MEDS ORDERED: CETIRIZINE (ZyrTEC) 10 MG TAB PO SCH (09:00)
[2023-02-17 11:36] VITALS: BP 164/70; TEMP 97.2; O2SAT 95
[2023-02-17] MEDS: SEVELAMER CARBONATE 2.4 GM PO SCH ×3 (12:07→22:28)
[2023-02-17] MEDS ORDERED: BUDESONIDE 0.5 MG/2 ML INHALATION SUSPENSION INH ONE (13:00)
[2023-02-17] MEDS: BUDESONIDE 0.5 MG/2 ML INHALATION SUSPENSION INH SCH (19:36)
[2023-02-17 19:47] VITALS: BP 170/72; TEMP 97.6; O2SAT 94
[2023-02-17] MEDS: METOPROLOL SUCC (TopROL XL) 50MG **XL** TAB PO SCH (22:02)
[2023-02-17] MEDS: traMADol ER 100MG TABLET (ULTRAM ER) PO SCH (22:28)
[2023-02-18] MEDS: HEPARIN SOD (PORCINE) 5000UNITS/ML 1ML VIAL/SYRINGE SC SCH ×3 (00:55→16:55)
[2023-02-18] MEDS: oxyCODONE 5MG TAB PO PRN ×3 (02:42→17:59)
[2023-02-18] MEDS: ALBUTEROL SULFATE 2.5MG/0.5ML INH NEB SOLN INH PRN ×3 (02:44→19:15)
[2023-02-18 06:00] VITALS: BP 164/70; TEMP 97; O2SAT 96
[2023-02-18] MEDS ORDERED: HEPARIN 1,000UNITS/ML 10ML VIAL (FOR RADIOLOGY & DIALYSIS ONLY) XX SCH (06:00)
[2023-02-18] MEDS ORDERED: HEPARIN 1,000UNITS/ML 10ML VIAL (FOR RADIOLOGY & DIALYSIS ONLY) IV PRN (06:00)
[2023-02-18] MEDS ORDERED: SODIUM CHLORIDE 0.9% 1000ML IV PRN (06:00)
[2023-02-18] MEDS: LEVOTHYROXINE 100MCG TABLET (0.1MG) PO SCH (06:41)
[2023-02-18] MEDS: LEVOTHYROXINE 75MCG TABLET (0.075MG) PO SCH (06:41)
[2023-02-18] MEDS: ADVAIR HFA 115/21MCG INHALER INH SCH ×2 (07:26→19:15)
[2023-02-18] MEDS: TIOTROPIUM INHALER/CAPSULE (SPIRIVA) INH SCH (07:26)
[2023-02-18] MEDS: BUDESONIDE 0.5 MG/2 ML INHALATION SUSPENSION INH SCH ×2 (07:27→19:14)
[2023-02-18] MEDS: INSULIN LISPRO (NovoLOG) PER UNIT SC SCH ×4 (07:30→21:00)
[2023-02-18 07:33] VITALS: BP 160/78; TEMP 97.1; O2SAT 97
[2023-02-18] MEDS: SEVELAMER CARBONATE 2.4 GM PO SCH ×4 (09:00→21:00)
[2023-02-18] MEDS: DULoxetine 30MG CAPSULE (CYMBALTA) PO SCH ×2 (09:24→22:01)
[2023-02-18] MEDS: LIDOCAINE 5% (LIDODERM) PATCH TOP SCH (09:24)
[2023-02-18] MEDS: VENLAFAXINE **XR** 75MG CAPSULE PO SCH (09:25)
[2023-02-18] MEDS: ATORVASTATIN 20 MG TAB PO SCH (09:25)
[2023-02-18] MEDS: CINACALCET 30 MG TAB (SENSIPAR) PO SCH (09:26)
[2023-02-18] MEDS: metOLazone 5 MG TAB PO SCH (09:26)
[2023-02-18] MEDS: SENOKOT S TAB PO SCH ×2 (09:27→22:01)
[2023-02-18] MEDS: **hydrALAZINE** 10 MG TAB PO SCH ×2 (09:27→22:02)
[2023-02-18] MEDS: CETIRIZINE (ZyrTEC) 10 MG TAB PO SCH (09:27)
[2023-02-18] MEDS: tiZANidine 4 MG TAB PO PRN (09:27)
[2023-02-18] MEDS: LOSARTAN 50MG TABLET PO SCH (09:28)
[2023-02-18] MEDS: FUROSEMIDE 20 MG TAB PO SCH (09:28)
[2023-02-18 16:59] VITALS: BP 150/67; TEMP 97.1; O2SAT 95
[2023-02-18 19:36] VITALS: BP 137/60; TEMP 97; O2SAT 93
[2023-02-18 20:00] VITALS: TEMP 97.1
[2023-02-18] MEDS: traMADol ER 100MG TABLET (ULTRAM ER) PO SCH (22:02)
[2023-02-18] MEDS: METOPROLOL SUCC (TopROL XL) 50MG **XL** TAB PO SCH (22:02)
[2023-02-19] VITALS: TEMP 98
[2023-02-19] MEDS: HEPARIN SOD (PORCINE) 5000UNITS/ML 1ML VIAL/SYRINGE SC SCH ×3 (00:55→16:42)
[2023-02-19] MEDS: ALBUTEROL SULFATE 2.5MG/0.5ML INH NEB SOLN INH PRN ×3 (00:56→19:32)
[2023-02-19] MEDS: tiZANidine 4 MG TAB PO PRN ×2 (01:07→22:39)
[2023-02-19 04:07] VITALS: BP 141/66; TEMP 97.6; O2SAT 97
[2023-02-19] MEDS: LEVOTHYROXINE 100MCG TABLET (0.1MG) PO SCH (06:23)
[2023-02-19] MEDS: LEVOTHYROXINE 75MCG TABLET (0.075MG) PO SCH (06:23)
[2023-02-19 07:32] LABS: BASO % 0.2 % (0.0-1.0); EOS # 0.2 10^3/uL (0.0-0.5); EOS % 1.6 % (0.0-3.0); HEMATOCRIT 30.1 % (36.0-47.0); LYMPH # 0.6 10^3/uL (1.5-5.0); LYMPH % 5.9 % (24.0-44.0); MEAN CORPUSCULAR HEMOGLOBIN 28.8 pg (27.0-33.0); MEAN CORPUSCULAR HGB CONC 29.9 g/dl (32.0-36.5); MEAN CORPUSCULAR VOLUME 96.5 fl (80.0-96.0); MONO # 0.4 10^3/uL (0.0-0.8); MONO % 4.5 % (2.0-8.0); NEUTROPHILS # 8.3 10^3/uL (1.5-8.5); NEUTROPHILS % 87.3 % (36.0-66.0); PLATELET COUNT, AUTOMATED 118 10^3/uL (150-450); RED BLOOD COUNT 3.12 10^6/uL (4.00-5.40); WHITE BLOOD COUNT 9.5 10^3/uL (4.0-10.0)
[2023-02-19 07:59] LABS: CALCIUM LEVEL 8.9 MG/DL (8.3-10.6); CREATININE FOR GFR 7.99 MG/DL (0.55-1.30); GLOMERULAR FILTRATION RATE 5.5 (>45); MAGNESIUM LEVEL 2.4 MG/DL (1.8-2.4); POTASSIUM SERUM 4.2 MMOL/L (3.5-5.1)
[2023-02-19 08:00] VITALS: BP 148/72; TEMP 97.4; O2SAT 96
[2023-02-19] MEDS ORDERED: HEPARIN 1,000UNITS/ML 10ML VIAL (FOR RADIOLOGY & DIALYSIS ONLY) XX SCH (08:45)
[2023-02-19] MEDS ORDERED: SODIUM CHLORIDE 0.9% 1000ML IV PRN (08:45)
[2023-02-19] MEDS ORDERED: LIDOCAINE 1% SDV 5ML VIAL SC PRN (08:45)
[2023-02-19] MEDS ORDERED: HEPARIN 1,000UNITS/ML 10ML VIAL (FOR RADIOLOGY & DIALYSIS ONLY) IV PRN (08:45)
[2023-02-19] MEDS: oxyCODONE 5MG TAB PO PRN ×2 (08:52→16:42)
[2023-02-19] MEDS: CETIRIZINE (ZyrTEC) 10 MG TAB PO SCH (08:53)
[2023-02-19] MEDS: INSULIN LISPRO (NovoLOG) PER UNIT SC SCH ×4 (08:53→20:27)
[2023-02-19] MEDS: ATORVASTATIN 20 MG TAB PO SCH (08:53)
[2023-02-19] MEDS: FUROSEMIDE 20 MG TAB PO SCH (08:54)
[2023-02-19] MEDS: DULoxetine 30MG CAPSULE (CYMBALTA) PO SCH ×2 (08:54→20:28)
[2023-02-19] MEDS: SENOKOT S TAB PO SCH ×2 (08:54→20:28)
[2023-02-19] MEDS: VENLAFAXINE **XR** 75MG CAPSULE PO SCH (08:54)
[2023-02-19] MEDS: metOLazone 5 MG TAB PO SCH (08:54)
[2023-02-19] MEDS: BUDESONIDE 0.5 MG/2 ML INHALATION SUSPENSION INH SCH ×2 (08:58→19:32)
[2023-02-19] MEDS: LOSARTAN 50MG TABLET PO SCH (08:58)
[2023-02-19] MEDS: ADVAIR HFA 115/21MCG INHALER INH SCH ×2 (08:58→19:32)
[2023-02-19] MEDS: TIOTROPIUM INHALER/CAPSULE (SPIRIVA) INH SCH (08:59)
[2023-02-19] MEDS: SEVELAMER CARBONATE 2.4 GM PO SCH ×3 (08:59→16:41)
[2023-02-19] MEDS: **hydrALAZINE** 10 MG TAB PO SCH ×2 (08:59→20:28)
[2023-02-19] MEDS ORDERED: EMLA CREAM 5GM TUBE (LIDOCAINE/PRILOCAINE) TOP SCH (09:00)
[2023-02-19] MEDS: LIDOCAINE 5% (LIDODERM) PATCH TOP SCH (09:04)
[2023-02-19] MEDS: CINACALCET 30 MG TAB (SENSIPAR) PO SCH (09:09)
[2023-02-19] MEDS: DARBEPOETIN 200MCG/0.4ML *DIALYSIS* SYRINGE IV SCH (12:24)
[2023-02-19 20:20] VITALS: BP 149/69; TEMP 97.8; O2SAT 96
[2023-02-19] MEDS: traMADol ER 100MG TABLET (ULTRAM ER) PO SCH (20:27)
[2023-02-19] MEDS: METOPROLOL SUCC (TopROL XL) 50MG **XL** TAB PO SCH (20:28)
[2023-02-20] VITALS (7 sets, daily range): BP systolic 142–165; BP diastolic 62–76; TEMP 96.7–98; O2SAT 97–100
[2023-02-20] MEDS: HEPARIN SOD (PORCINE) 5000UNITS/ML 1ML VIAL/SYRINGE SC SCH ×3 (00:54→17:37)
[2023-02-20] MEDS: oxyCODONE 5MG TAB PO PRN ×3 (01:52→14:02)
[2023-02-20] MEDS ORDERED: SODIUM CHLORIDE 0.9% 1000ML IV PRN (06:00)
[2023-02-20] MEDS ORDERED: HEPARIN 1,000UNITS/ML 10ML VIAL (FOR RADIOLOGY & DIALYSIS ONLY) XX SCH (06:00)
[2023-02-20] MEDS ORDERED: HEPARIN 1,000UNITS/ML 10ML VIAL (FOR RADIOLOGY & DIALYSIS ONLY) IV PRN (06:00)
[2023-02-20] MEDS: LEVOTHYROXINE 100MCG TABLET (0.1MG) PO SCH (06:09)
[2023-02-20] MEDS: LEVOTHYROXINE 75MCG TABLET (0.075MG) PO SCH (06:09)
[2023-02-20 06:10] LABS: BASO % 0.3 % (0.0-1.0); EOS # 0.2 10^3/uL (0.0-0.5); EOS % 1.6 % (0.0-3.0); HEMATOCRIT 29.8 % (36.0-47.0); LYMPH # 0.8 10^3/uL (1.5-5.0); LYMPH % 8.7 % (24.0-44.0); MEAN CORPUSCULAR HEMOGLOBIN 28.8 pg (27.0-33.0); MEAN CORPUSCULAR HGB CONC 30.2 g/dl (32.0-36.5); MEAN CORPUSCULAR VOLUME 95.2 fl (80.0-96.0); MONO # 0.6 10^3/uL (0.0-0.8); MONO % 6.3 % (2.0-8.0); NEUTROPHILS # 7.5 10^3/uL (1.5-8.5); NEUTROPHILS % 81.9 % (36.0-66.0); PLATELET COUNT, AUTOMATED 118 10^3/uL (150-450); RED BLOOD COUNT 3.13 10^6/uL (4.00-5.40); WHITE BLOOD COUNT 9.2 10^3/uL (4.0-10.0)
[2023-02-20] MEDS: ADVAIR HFA 115/21MCG INHALER INH SCH ×2 (06:23→19:25)
[2023-02-20] MEDS: BUDESONIDE 0.5 MG/2 ML INHALATION SUSPENSION INH SCH ×2 (06:23→20:00)
[2023-02-20] MEDS: TIOTROPIUM INHALER/CAPSULE (SPIRIVA) INH SCH (06:26)
[2023-02-20 06:29] LABS: CALCIUM LEVEL 9.2 MG/DL (8.3-10.6); CREATININE FOR GFR 5.39 MG/DL (0.55-1.30); GLOMERULAR FILTRATION RATE 8.6 (>45); MAGNESIUM LEVEL 2.2 MG/DL (1.8-2.4); POTASSIUM SERUM 3.7 MMOL/L (3.5-5.1)
[2023-02-20] MEDS: SEVELAMER CARBONATE 2.4 GM PO SCH ×3 (06:39→17:38)
[2023-02-20] MEDS: DULoxetine 30MG CAPSULE (CYMBALTA) PO SCH ×2 (07:34→20:55)
[2023-02-20] MEDS: metOLazone 5 MG TAB PO SCH (07:34)
[2023-02-20] MEDS: LIDOCAINE 5% (LIDODERM) PATCH TOP SCH (07:34)
[2023-02-20] MEDS: INSULIN LISPRO (NovoLOG) PER UNIT SC SCH ×4 (07:34→20:46)
[2023-02-20] MEDS: ATORVASTATIN 20 MG TAB PO SCH (07:35)
[2023-02-20] MEDS: VENLAFAXINE **XR** 75MG CAPSULE PO SCH (07:35)
[2023-02-20] MEDS: SENOKOT S TAB PO SCH ×2 (07:35→20:55)
[2023-02-20] MEDS: **hydrALAZINE** 10 MG TAB PO SCH ×2 (07:36→20:56)
[2023-02-20] MEDS: FUROSEMIDE 20 MG TAB PO SCH (07:36)
[2023-02-20] MEDS: LOSARTAN 50MG TABLET PO SCH (07:37)
[2023-02-20] MEDS: CETIRIZINE (ZyrTEC) 10 MG TAB PO SCH (07:38)
[2023-02-20] MEDS: CINACALCET 30 MG TAB (SENSIPAR) PO SCH (07:44)
[2023-02-20] MEDS: ALBUTEROL SULFATE 2.5MG/0.5ML INH NEB SOLN INH PRN (19:27)
[2023-02-20] MEDS: METOPROLOL SUCC (TopROL XL) 50MG **XL** TAB PO SCH (20:55)
[2023-02-20] MEDS: traMADol ER 100MG TABLET (ULTRAM ER) PO SCH (20:55)
[2023-02-21] MEDS: HEPARIN SOD (PORCINE) 5000UNITS/ML 1ML VIAL/SYRINGE SC SCH ×3 (00:55→16:15)
[2023-02-21] MEDS: ALBUTEROL SULFATE 2.5MG/0.5ML INH NEB SOLN INH PRN ×4 (02:34→19:24)
[2023-02-21] MEDS ORDERED: SODIUM CHLORIDE 0.9% 1000ML IV PRN (06:00)
[2023-02-21] MEDS ORDERED: HEPARIN 1,000UNITS/ML 10ML VIAL (FOR RADIOLOGY & DIALYSIS ONLY) IV PRN (06:00)
[2023-02-21] MEDS ORDERED: HEPARIN 1,000UNITS/ML 10ML VIAL (FOR RADIOLOGY & DIALYSIS ONLY) XX SCH (06:00)
[2023-02-21] MEDS: LEVOTHYROXINE 75MCG TABLET (0.075MG) PO SCH (06:32)
[2023-02-21] MEDS: LEVOTHYROXINE 100MCG TABLET (0.1MG) PO SCH (06:32)
[2023-02-21] MEDS: metOLazone 5 MG TAB PO SCH (06:35)
[2023-02-21] MEDS: CINACALCET 30 MG TAB (SENSIPAR) PO SCH (06:35)
[2023-02-21] MEDS: SEVELAMER CARBONATE 2.4 GM PO SCH ×3 (06:36→17:50)
[2023-02-21] MEDS: **hydrALAZINE** 10 MG TAB PO SCH (06:37)
[2023-02-21] MEDS: ATORVASTATIN 20 MG TAB PO SCH (06:37)
[2023-02-21] MEDS: CETIRIZINE (ZyrTEC) 10 MG TAB PO SCH (06:38)
[2023-02-21] MEDS: DULoxetine 30MG CAPSULE (CYMBALTA) PO SCH ×2 (06:38→21:17)
[2023-02-21] MEDS: VENLAFAXINE **XR** 75MG CAPSULE PO SCH (06:38)
[2023-02-21] MEDS: LIDOCAINE 5% (LIDODERM) PATCH TOP SCH (06:39)
[2023-02-21] MEDS: SENOKOT S TAB PO SCH ×2 (06:39→21:18)
[2023-02-21] MEDS: FUROSEMIDE 20 MG TAB PO SCH (06:43)
[2023-02-21] MEDS: LOSARTAN 50MG TABLET PO SCH (06:45)
[2023-02-21 06:51] VITALS: BP 183/77; TEMP 97.1; O2SAT 94
[2023-02-21 06:59] LABS: BASO % 0.2 % (0.0-1.0); EOS # 0.1 10^3/uL (0.0-0.5); EOS % 1.3 % (0.0-3.0); HEMATOCRIT 30.8 % (36.0-47.0); HEMOGLOBIN 9.5 g/dl (12.0-15.5); LYMPH # 0.5 10^3/uL (1.5-5.0); LYMPH % 5.7 % (24.0-44.0); MEAN CORPUSCULAR HEMOGLOBIN 28.7 pg (27.0-33.0); MEAN CORPUSCULAR HGB CONC 30.8 g/dl (32.0-36.5); MEAN CORPUSCULAR VOLUME 93.1 fl (80.0-96.0); MONO # 0.6 10^3/uL (0.0-0.8); NEUTROPHILS # 8.2 10^3/uL (1.5-8.5); NEUTROPHILS % 85.9 % (36.0-66.0); PLATELET COUNT, AUTOMATED 128 10^3/uL (150-450); RED BLOOD COUNT 3.31 10^6/uL (4.00-5.40); WHITE BLOOD COUNT 9.5 10^3/uL (4.0-10.0)
[2023-02-21] MEDS: ADVAIR HFA 115/21MCG INHALER INH SCH ×2 (07:07→19:24)
[2023-02-21] MEDS: BUDESONIDE 0.5 MG/2 ML INHALATION SUSPENSION INH SCH ×2 (07:07→19:24)
[2023-02-21] MEDS: TIOTROPIUM INHALER/CAPSULE (SPIRIVA) INH SCH (07:07)
[2023-02-21 07:30] LABS: CALCIUM LEVEL 9.5 MG/DL (8.3-10.6); CREATININE FOR GFR 7.26 MG/DL (0.55-1.30); GLOMERULAR FILTRATION RATE 6.1 (>45); MAGNESIUM LEVEL 2.3 MG/DL (1.8-2.4); POTASSIUM SERUM 4.1 MMOL/L (3.5-5.1)
[2023-02-21] MEDS: INSULIN LISPRO (NovoLOG) PER UNIT SC SCH ×5 (07:49→21:18)
[2023-02-21] MEDS: oxyCODONE 5MG TAB PO PRN ×2 (12:53→18:53)
[2023-02-21] MEDS: **hydrALAZINE HCL** 25 MG TAB PO SCH ×2 (13:05→21:17)
[2023-02-21 14:00] VITALS: BP 128/55; TEMP 97.9; O2SAT 100
[2023-02-21] MEDS: tiZANidine 4 MG TAB PO PRN (16:15)
[2023-02-21 20:00] VITALS: BP 134/62; TEMP 98; O2SAT 99
[2023-02-21] MEDS: traMADol ER 100MG TABLET (ULTRAM ER) PO SCH (21:16)
[2023-02-21] MEDS: METOPROLOL SUCC (TopROL XL) 50MG **XL** TAB PO SCH (21:17)
[2023-02-22] MEDS: HEPARIN SOD (PORCINE) 5000UNITS/ML 1ML VIAL/SYRINGE SC SCH ×3 (00:55→17:13)
[2023-02-22] MEDS: ALBUTEROL SULFATE 2.5MG/0.5ML INH NEB SOLN INH PRN ×3 (03:08→19:02)
[2023-02-22 05:55] VITALS: BP 144/66; TEMP 97.1; O2SAT 94
[2023-02-22] MEDS: SEVELAMER CARBONATE 2.4 GM PO SCH ×3 (05:55→17:13)
[2023-02-22] MEDS: LIDOCAINE 5% (LIDODERM) PATCH TOP SCH (05:56)
[2023-02-22] MEDS: LEVOTHYROXINE 100MCG TABLET (0.1MG) PO SCH (05:57)
[2023-02-22] MEDS: SENOKOT S TAB PO SCH ×2 (05:57→20:43)
[2023-02-22] MEDS: CINACALCET 30 MG TAB (SENSIPAR) PO SCH (05:57)
[2023-02-22] MEDS: ATORVASTATIN 20 MG TAB PO SCH (05:57)
[2023-02-22] MEDS: CETIRIZINE (ZyrTEC) 10 MG TAB PO SCH (05:57)
[2023-02-22] MEDS: DULoxetine 30MG CAPSULE (CYMBALTA) PO SCH ×2 (05:58→20:43)
[2023-02-22] MEDS: metOLazone 5 MG TAB PO SCH (05:58)
[2023-02-22] MEDS: VENLAFAXINE **XR** 75MG CAPSULE PO SCH (05:59)
[2023-02-22] MEDS: **hydrALAZINE HCL** 25 MG TAB PO SCH ×3 (05:59→20:43)
[2023-02-22] MEDS: FUROSEMIDE 20 MG TAB PO SCH (05:59)
[2023-02-22] MEDS: LEVOTHYROXINE 75MCG TABLET (0.075MG) PO SCH (05:59)
[2023-02-22] MEDS ORDERED: HEPARIN 1,000UNITS/ML 10ML VIAL (FOR RADIOLOGY & DIALYSIS ONLY) XX SCH (06:00)
[2023-02-22] MEDS ORDERED: SODIUM CHLORIDE 0.9% 1000ML IV PRN (06:00)
[2023-02-22] MEDS ORDERED: HEPARIN 1,000UNITS/ML 10ML VIAL (FOR RADIOLOGY & DIALYSIS ONLY) IV PRN (06:00)
[2023-02-22] MEDS: tiZANidine 4 MG TAB PO PRN ×2 (06:10→18:55)
[2023-02-22] MEDS: LOSARTAN 50MG TABLET PO SCH (06:29)
[2023-02-22 06:50] LABS: BASO % 0.3 % (0.0-1.0); EOS # 0.1 10^3/uL (0.0-0.5); EOS % 1.4 % (0.0-3.0); HEMATOCRIT 29.7 % (36.0-47.0); HEMOGLOBIN 9.3 g/dl (12.0-15.5); LYMPH # 0.7 10^3/uL (1.5-5.0); LYMPH % 7.3 % (24.0-44.0); MEAN CORPUSCULAR HEMOGLOBIN 28.5 pg (27.0-33.0); MEAN CORPUSCULAR HGB CONC 31.3 g/dl (32.0-36.5); MEAN CORPUSCULAR VOLUME 91.1 fl (80.0-96.0); MONO # 0.8 10^3/uL (0.0-0.8); MONO % 8.6 % (2.0-8.0); NEUTROPHILS # 7.4 10^3/uL (1.5-8.5); NEUTROPHILS % 81.5 % (36.0-66.0); PLATELET COUNT, AUTOMATED 158 10^3/uL (150-450); RED BLOOD COUNT 3.26 10^6/uL (4.00-5.40); WHITE BLOOD COUNT 9.1 10^3/uL (4.0-10.0)
[2023-02-22] MEDS: INSULIN LISPRO (NovoLOG) PER UNIT SC SCH ×4 (06:53→20:00)
[2023-02-22] MEDS: ADVAIR HFA 115/21MCG INHALER INH SCH ×2 (07:19→19:02)
[2023-02-22] MEDS: TIOTROPIUM INHALER/CAPSULE (SPIRIVA) INH SCH (07:19)
[2023-02-22] MEDS: BUDESONIDE 0.5 MG/2 ML INHALATION SUSPENSION INH SCH ×2 (07:19→19:02)
[2023-02-22 07:23] LABS: CALCIUM LEVEL 9.7 MG/DL (8.3-10.6); CREATININE FOR GFR 5.79 MG/DL (0.55-1.30); GLOMERULAR FILTRATION RATE 7.9 (>45); MAGNESIUM LEVEL 2.2 MG/DL (1.8-2.4)
[2023-02-22] MEDS: oxyCODONE 5MG TAB PO PRN ×2 (12:22→18:55)
[2023-02-22 14:12] VITALS: BP 114/76; TEMP 96.8; O2SAT 100
[2023-02-22] MEDS ORDERED: ONDANSETRON 4MG ORAL DISINTEGRATING TAB PO PRN (19:45)
[2023-02-22 20:00] VITALS: BP 166/74; TEMP 98.6; O2SAT 99
[2023-02-22] MEDS: METOPROLOL SUCC (TopROL XL) 50MG **XL** TAB PO SCH (20:43)
[2023-02-22] MEDS: traMADol ER 100MG TABLET (ULTRAM ER) PO SCH (20:43)
[2023-02-23] MEDS: HEPARIN SOD (PORCINE) 5000UNITS/ML 1ML VIAL/SYRINGE SC SCH ×4 (00:19→23:59)
[2023-02-23] MEDS: ALBUTEROL SULFATE 2.5MG/0.5ML INH NEB SOLN INH PRN ×2 (00:46→10:50)
[2023-02-23] MEDS: metOLazone 5 MG TAB PO SCH (05:56)
[2023-02-23] MEDS: CINACALCET 30 MG TAB (SENSIPAR) PO SCH (05:57)
[2023-02-23] MEDS: ATORVASTATIN 20 MG TAB PO SCH (05:57)
[2023-02-23] MEDS: DULoxetine 30MG CAPSULE (CYMBALTA) PO SCH ×2 (05:57→20:28)
[2023-02-23] MEDS: **hydrALAZINE HCL** 25 MG TAB PO SCH ×3 (05:58→22:00)
[2023-02-23] MEDS: LEVOTHYROXINE 100MCG TABLET (0.1MG) PO SCH (05:58)
[2023-02-23] MEDS: LOSARTAN 50MG TABLET PO SCH (05:58)
[2023-02-23] MEDS: SENOKOT S TAB PO SCH ×2 (05:58→20:30)
[2023-02-23] MEDS: FUROSEMIDE 20 MG TAB PO SCH (05:59)
[2023-02-23] MEDS: VENLAFAXINE **XR** 75MG CAPSULE PO SCH (05:59)
[2023-02-23] MEDS: CETIRIZINE (ZyrTEC) 10 MG TAB PO SCH (05:59)
[2023-02-23] MEDS: SEVELAMER CARBONATE 2.4 GM PO SCH ×3 (05:59→18:00)
[2023-02-23] MEDS: LEVOTHYROXINE 75MCG TABLET (0.075MG) PO SCH (05:59)
[2023-02-23 06:00] VITALS: BP 132/62; TEMP 97.8; O2SAT 100
[2023-02-23] MEDS: LIDOCAINE 5% (LIDODERM) PATCH TOP SCH (06:00)
[2023-02-23] MEDS ORDERED: HEPARIN 1,000UNITS/ML 10ML VIAL (FOR RADIOLOGY & DIALYSIS ONLY) IV PRN (06:50)
[2023-02-23] MEDS ORDERED: LIDOCAINE 1% SDV 5ML VIAL SC PRN (06:50)
[2023-02-23] MEDS ORDERED: HEPARIN 1,000UNITS/ML 10ML VIAL (FOR RADIOLOGY & DIALYSIS ONLY) XX SCH (06:50)
[2023-02-23] MEDS ORDERED: SODIUM CHLORIDE 0.9% 1000ML IV PRN (06:50)
[2023-02-23 07:06] LABS: BASO % 0.3 % (0.0-1.0); EOS # 0.2 10^3/uL (0.0-0.5); EOS % 1.4 % (0.0-3.0); HEMATOCRIT 32.7 % (36.0-47.0); HEMOGLOBIN 10.2 g/dl (12.0-15.5); LYMPH # 0.7 10^3/uL (1.5-5.0); LYMPH % 6.6 % (24.0-44.0); MEAN CORPUSCULAR HEMOGLOBIN 28.6 pg (27.0-33.0); MEAN CORPUSCULAR HGB CONC 31.2 g/dl (32.0-36.5); MEAN CORPUSCULAR VOLUME 91.6 fl (80.0-96.0); MONO # 0.8 10^3/uL (0.0-0.8); MONO % 7.8 % (2.0-8.0); NEUTROPHILS # 8.6 10^3/uL (1.5-8.5); PLATELET COUNT, AUTOMATED 182 10^3/uL (150-450); RED BLOOD COUNT 3.57 10^6/uL (4.00-5.40); WHITE BLOOD COUNT 10.4 10^3/uL (4.0-10.0)
[2023-02-23 07:39] LABS: CALCIUM LEVEL 9.6 MG/DL (8.3-10.6); CREATININE FOR GFR 7.81 MG/DL (0.55-1.30); GLOMERULAR FILTRATION RATE 5.6 (>45); MAGNESIUM LEVEL 2.5 MG/DL (1.8-2.4); POTASSIUM SERUM 4.3 MMOL/L (3.5-5.1)
[2023-02-23] MEDS: INSULIN LISPRO (NovoLOG) PER UNIT SC SCH ×4 (07:55→20:31)
[2023-02-23] MEDS: ADVAIR HFA 115/21MCG INHALER INH SCH ×2 (08:00→19:33)
[2023-02-23] MEDS: TIOTROPIUM INHALER/CAPSULE (SPIRIVA) INH SCH (08:00)
[2023-02-23] MEDS: BUDESONIDE 0.5 MG/2 ML INHALATION SUSPENSION INH SCH ×3 (08:00→19:33)
[2023-02-23] MEDS: tiZANidine 4 MG TAB PO PRN ×2 (08:55→20:29)
[2023-02-23 14:00] VITALS: BP 104/55; TEMP 97.7; O2SAT 97
[2023-02-23] MEDS: oxyCODONE 5MG TAB PO PRN (18:11)
[2023-02-23 19:30] VITALS: BP 109/50; TEMP 97.7; O2SAT 96
[2023-02-23 20:22] VITALS: BP 122/60
[2023-02-23] MEDS: METOPROLOL SUCC (TopROL XL) 50MG **XL** TAB PO SCH (20:31)
[2023-02-23] MEDS: traMADol ER 100MG TABLET (ULTRAM ER) PO SCH (20:49)
[2023-02-24] MEDS: ALBUTEROL SULFATE 2.5MG/0.5ML INH NEB SOLN INH PRN ×4 (00:06→19:04)
[2023-02-24] MEDS: oxyCODONE 5MG TAB PO PRN ×2 (03:34→12:36)
[2023-02-24 06:00] VITALS: BP 130/64; TEMP 97.3; O2SAT 95
[2023-02-24] MEDS: LEVOTHYROXINE 75MCG TABLET (0.075MG) PO SCH (06:23)
[2023-02-24] MEDS: LEVOTHYROXINE 100MCG TABLET (0.1MG) PO SCH (06:23)
[2023-02-24] MEDS: **hydrALAZINE HCL** 25 MG TAB PO SCH ×3 (06:35→22:30)
[2023-02-24] MEDS: INSULIN LISPRO (NovoLOG) PER UNIT SC SCH ×4 (07:30→21:00)
[2023-02-24] MEDS: ADVAIR HFA 115/21MCG INHALER INH SCH ×2 (07:42→19:05)
[2023-02-24] MEDS: TIOTROPIUM INHALER/CAPSULE (SPIRIVA) INH SCH (07:42)
[2023-02-24] MEDS: BUDESONIDE 0.5 MG/2 ML INHALATION SUSPENSION INH SCH ×2 (07:42→19:04)
[2023-02-24] MEDS: SEVELAMER CARBONATE 2.4 GM PO SCH ×3 (08:00→17:37)
[2023-02-24 08:07] LABS: BASO # 0.1 10^3/uL (0.0-0.2); BASO % 0.5 % (0.0-1.0); EOS # 0.2 10^3/uL (0.0-0.5); EOS % 1.5 % (0.0-3.0); HEMATOCRIT 34.9 % (36.0-47.0); HEMOGLOBIN 10.7 g/dl (12.0-15.5); LYMPH # 0.8 10^3/uL (1.5-5.0); LYMPH % 7.9 % (24.0-44.0); MEAN CORPUSCULAR HEMOGLOBIN 28.7 pg (27.0-33.0); MEAN CORPUSCULAR HGB CONC 30.7 g/dl (32.0-36.5); MEAN CORPUSCULAR VOLUME 93.6 fl (80.0-96.0); MONO # 1.2 10^3/uL (0.0-0.8); MONO % 11.6 % (2.0-8.0); NEUTROPHILS # 8.2 10^3/uL (1.5-8.5); PLATELET COUNT, AUTOMATED 186 10^3/uL (150-450); RED BLOOD COUNT 3.73 10^6/uL (4.00-5.40); WHITE BLOOD COUNT 10.6 10^3/uL (4.0-10.0)
[2023-02-24] MEDS: HEPARIN SOD (PORCINE) 5000UNITS/ML 1ML VIAL/SYRINGE SC SCH ×2 (08:48→17:37)
[2023-02-24] MEDS: LOSARTAN 50MG TABLET PO SCH (08:50)
[2023-02-24] MEDS: DULoxetine 30MG CAPSULE (CYMBALTA) PO SCH ×2 (08:50→20:08)
[2023-02-24] MEDS: VENLAFAXINE **XR** 75MG CAPSULE PO SCH (08:50)
[2023-02-24] MEDS: FUROSEMIDE 20 MG TAB PO SCH (08:51)
[2023-02-24] MEDS: SENOKOT S TAB PO SCH ×2 (08:51→20:08)
[2023-02-24] MEDS: ATORVASTATIN 20 MG TAB PO SCH (08:51)
[2023-02-24] MEDS: CINACALCET 30 MG TAB (SENSIPAR) PO SCH (08:52)
[2023-02-24] MEDS: metOLazone 5 MG TAB PO SCH (08:52)
[2023-02-24] MEDS: CETIRIZINE (ZyrTEC) 10 MG TAB PO SCH (08:52)
[2023-02-24] MEDS: LIDOCAINE 5% (LIDODERM) PATCH TOP SCH ×2 (08:53→21:13)
[2023-02-24] MEDS ORDERED: ISOVUE-370 76% 100ML VIAL As Ordered ONE (09:24)
[2023-02-24] MEDS ORDERED: LACTULOSE 20GM/30ML SYRUP UDC PO PRN (10:40)
[2023-02-24] MEDS ORDERED: MIRALAX *UNIT DOSE* 17GM PACKET PO PRN (10:40)
[2023-02-24 13:41] VITALS: BP 118/54; TEMP 97.7; O2SAT 100
[2023-02-24 19:11] VITALS: O2SAT 98
[2023-02-24] MEDS: METOPROLOL SUCC (TopROL XL) 50MG **XL** TAB PO SCH (20:08)
[2023-02-24] MEDS: traMADol ER 100MG TABLET (ULTRAM ER) PO SCH (20:08)
[2023-02-24 22:00] VITALS: BP 129/59; TEMP 97.5; O2SAT 98
[2023-02-25] MEDS: ALBUTEROL SULFATE 2.5MG/0.5ML INH NEB SOLN INH PRN ×4 (00:35→20:38)
[2023-02-25] MEDS: oxyCODONE 5MG TAB PO PRN ×3 (01:17→22:49)
[2023-02-25 02:55] VITALS: BP 124/54; TEMP 97.5; O2SAT 95
[2023-02-25] MEDS ORDERED: NITROGLYCERIN 0.4MG SUBL TABLET SL PRN (03:15)
[2023-02-25] MEDS: LEVOTHYROXINE 75MCG TABLET (0.075MG) PO SCH (05:22)
[2023-02-25] MEDS: LEVOTHYROXINE 100MCG TABLET (0.1MG) PO SCH (05:22)
[2023-02-25] MEDS: HEPARIN SOD (PORCINE) 5000UNITS/ML 1ML VIAL/SYRINGE SC SCH ×3 (05:22→22:46)
[2023-02-25] MEDS: **hydrALAZINE HCL** 25 MG TAB PO SCH ×3 (05:22→22:45)
[2023-02-25 06:00] VITALS: BP 136/62; TEMP 97.2; O2SAT 95
[2023-02-25] MEDS ORDERED: LIDOCAINE 1% SDV 5ML VIAL SC PRN (06:50)
[2023-02-25] MEDS ORDERED: SODIUM CHLORIDE 0.9% 1000ML IV PRN (06:50)
[2023-02-25] MEDS ORDERED: HEPARIN 1,000UNITS/ML 10ML VIAL (FOR RADIOLOGY & DIALYSIS ONLY) XX SCH (06:50)
[2023-02-25] MEDS ORDERED: HEPARIN 1,000UNITS/ML 10ML VIAL (FOR RADIOLOGY & DIALYSIS ONLY) IV PRN (06:50)
[2023-02-25 06:53] LABS: BASO % 0.4 % (0.0-1.0); EOS # 0.2 10^3/uL (0.0-0.5); EOS % 1.4 % (0.0-3.0); HEMATOCRIT 31.7 % (36.0-47.0); HEMOGLOBIN 9.8 g/dl (12.0-15.5); LYMPH # 0.7 10^3/uL (1.5-5.0); LYMPH % 6.6 % (24.0-44.0); MEAN CORPUSCULAR HEMOGLOBIN 28.4 pg (27.0-33.0); MEAN CORPUSCULAR HGB CONC 30.9 g/dl (32.0-36.5); MEAN CORPUSCULAR VOLUME 91.9 fl (80.0-96.0); NEUTROPHILS # 8.9 10^3/uL (1.5-8.5); NEUTROPHILS % 81.2 % (36.0-66.0); PLATELET COUNT, AUTOMATED 183 10^3/uL (150-450); RED BLOOD COUNT 3.45 10^6/uL (4.00-5.40); WHITE BLOOD COUNT 10.9 10^3/uL (4.0-10.0)
[2023-02-25] MEDS: ADVAIR HFA 115/21MCG INHALER INH SCH ×2 (07:26→20:38)
[2023-02-25] MEDS: TIOTROPIUM INHALER/CAPSULE (SPIRIVA) INH SCH (07:26)
[2023-02-25] MEDS: BUDESONIDE 0.5 MG/2 ML INHALATION SUSPENSION INH SCH ×2 (07:26→20:38)
[2023-02-25 07:29] LABS: CALCIUM LEVEL 9.4 MG/DL (8.3-10.6); CREATININE FOR GFR 8.43 MG/DL (0.55-1.30); GLOMERULAR FILTRATION RATE 5.1 (>45); MB/CK RELATIVE INDEX 11.11 (< OR =4); POTASSIUM SERUM 5.1 MMOL/L (3.5-5.1)
[2023-02-25] MEDS: VENLAFAXINE **XR** 75MG CAPSULE PO SCH (07:36)
[2023-02-25] MEDS: CETIRIZINE (ZyrTEC) 10 MG TAB PO SCH (07:36)
[2023-02-25] MEDS: metOLazone 5 MG TAB PO SCH (07:36)
[2023-02-25] MEDS: ATORVASTATIN 20 MG TAB PO SCH (07:37)
[2023-02-25] MEDS: CINACALCET 30 MG TAB (SENSIPAR) PO SCH (07:37)
[2023-02-25] MEDS: SENOKOT S TAB PO SCH ×2 (07:37→20:21)
[2023-02-25] MEDS: DULoxetine 30MG CAPSULE (CYMBALTA) PO SCH ×2 (07:37→20:21)
[2023-02-25] MEDS: LOSARTAN 50MG TABLET PO SCH (07:38)
[2023-02-25] MEDS: SEVELAMER CARBONATE 2.4 GM PO SCH ×3 (07:39→17:08)
[2023-02-25] MEDS: FUROSEMIDE 20 MG TAB PO SCH (07:39)
[2023-02-25] MEDS: INSULIN LISPRO (NovoLOG) PER UNIT SC SCH ×4 (07:41→20:22)
[2023-02-25] MEDS: DARBEPOETIN 200MCG/0.4ML *DIALYSIS* SYRINGE IV SCH (09:43)
[2023-02-25] MEDS: cefTRIAXone SOD 1 GM in D5W MINI-BAG PLUS 50 ML IV SCH (12:00)
[2023-02-25 14:00] VITALS: BP 131/67; TEMP 97.6; O2SAT 96
[2023-02-25 19:27] VITALS: BP 129/64; TEMP 98.2; O2SAT 91
[2023-02-25] MEDS: METOPROLOL SUCC (TopROL XL) 50MG **XL** TAB PO SCH (20:21)
[2023-02-25] MEDS: traMADol ER 100MG TABLET (ULTRAM ER) PO SCH (20:21)
[2023-02-25] MEDS: tiZANidine 4 MG TAB PO PRN (22:49)
[2023-02-26] MEDS: ALBUTEROL SULFATE 2.5MG/0.5ML INH NEB SOLN INH PRN ×3 (02:21→19:31)
[2023-02-26] MEDS: HEPARIN SOD (PORCINE) 5000UNITS/ML 1ML VIAL/SYRINGE SC SCH ×3 (06:09→20:11)
[2023-02-26] MEDS: LEVOTHYROXINE 100MCG TABLET (0.1MG) PO SCH (06:09)
[2023-02-26] MEDS: LEVOTHYROXINE 75MCG TABLET (0.075MG) PO SCH (06:09)
[2023-02-26] MEDS: **hydrALAZINE HCL** 25 MG TAB PO SCH ×3 (06:10→21:34)
[2023-02-26 06:43] VITALS: BP 132/68; TEMP 98.1; O2SAT 96
[2023-02-26] MEDS: BUDESONIDE 0.5 MG/2 ML INHALATION SUSPENSION INH SCH ×2 (07:23→19:31)
[2023-02-26] MEDS: ADVAIR HFA 115/21MCG INHALER INH SCH ×2 (07:23→19:32)
[2023-02-26] MEDS: TIOTROPIUM INHALER/CAPSULE (SPIRIVA) INH SCH (07:23)
[2023-02-26] MEDS: SEVELAMER CARBONATE 2.4 GM PO SCH ×3 (08:00→17:01)
[2023-02-26] MEDS: FUROSEMIDE 20 MG TAB PO SCH (08:15)
[2023-02-26] MEDS: metOLazone 5 MG TAB PO SCH (08:15)
[2023-02-26] MEDS: VENLAFAXINE **XR** 75MG CAPSULE PO SCH (08:15)
[2023-02-26] MEDS: CINACALCET 30 MG TAB (SENSIPAR) PO SCH (08:15)
[2023-02-26] MEDS: LOSARTAN 50MG TABLET PO SCH (08:16)
[2023-02-26] MEDS: DULoxetine 30MG CAPSULE (CYMBALTA) PO SCH ×2 (08:16→20:04)
[2023-02-26] MEDS: SENOKOT S TAB PO SCH ×2 (08:16→20:04)
[2023-02-26] MEDS: ATORVASTATIN 20 MG TAB PO SCH (08:16)
[2023-02-26] MEDS: INSULIN LISPRO (NovoLOG) PER UNIT SC SCH ×4 (08:17→20:10)
[2023-02-26] MEDS: CETIRIZINE (ZyrTEC) 10 MG TAB PO SCH (08:17)
[2023-02-26] MEDS: cefTRIAXone SOD 1 GM in D5W MINI-BAG PLUS 50 ML IV SCH (08:17)
[2023-02-26] MEDS: LIDOCAINE 5% (LIDODERM) PATCH TOP SCH (08:23)
[2023-02-26 08:46] LABS: BASO % 0.3 % (0.0-1.0); EOS # 0.2 10^3/uL (0.0-0.5); EOS % 1.8 % (0.0-3.0); HEMOGLOBIN 9.5 g/dl (12.0-15.5); LYMPH # 0.9 10^3/uL (1.5-5.0); LYMPH % 9.2 % (24.0-44.0); MEAN CORPUSCULAR HEMOGLOBIN 28.9 pg (27.0-33.0); MEAN CORPUSCULAR HGB CONC 31.7 g/dl (32.0-36.5); MEAN CORPUSCULAR VOLUME 91.2 fl (80.0-96.0); MONO # 0.8 10^3/uL (0.0-0.8); NEUTROPHILS # 7.3 10^3/uL (1.5-8.5); NEUTROPHILS % 77.4 % (36.0-66.0); PLATELET COUNT, AUTOMATED 186 10^3/uL (150-450); RED BLOOD COUNT 3.29 10^6/uL (4.00-5.40); WHITE BLOOD COUNT 9.4 10^3/uL (4.0-10.0)
[2023-02-26 09:11] LABS: CALCIUM LEVEL 9.7 MG/DL (8.3-10.6); CREATININE FOR GFR 6.56 MG/DL (0.55-1.30); GLOMERULAR FILTRATION RATE 6.8 (>45); POTASSIUM SERUM 4.8 MMOL/L (3.5-5.1)
[2023-02-26] MEDS ORDERED: HEPARIN 1,000UNITS/ML 10ML VIAL (FOR RADIOLOGY & DIALYSIS ONLY) XX SCH (09:35)
[2023-02-26] MEDS ORDERED: HEPARIN 1,000UNITS/ML 10ML VIAL (FOR RADIOLOGY & DIALYSIS ONLY) IV PRN (09:35)
[2023-02-26] MEDS ORDERED: SODIUM CHLORIDE 0.9% 1000ML IV PRN (09:35)
[2023-02-26] MEDS ORDERED: LIDOCAINE 1% SDV 5ML VIAL SC PRN (09:35)
[2023-02-26] MEDS ORDERED: CEFDINIR 300 MG CAP (OMNICEF) PO SCH (16:00)
[2023-02-26] MEDS: oxyCODONE 5MG TAB PO PRN (17:07)
[2023-02-26 19:42] VITALS: BP 121/59; TEMP 98.2; O2SAT 99
[2023-02-26] MEDS: METOPROLOL SUCC (TopROL XL) 50MG **XL** TAB PO SCH (20:04)
[2023-02-26] MEDS: traMADol ER 100MG TABLET (ULTRAM ER) PO SCH (20:04)
[2023-02-26] MEDS ORDERED: LEVEMIR (INSULIN DETEMIR) 1 UNITS/0.01ML SC SCH (21:00)
[2023-02-27] MEDS: ALBUTEROL SULFATE 2.5MG/0.5ML INH NEB SOLN INH PRN ×2 (00:55→05:59)
[2023-02-27] MEDS: **hydrALAZINE HCL** 25 MG TAB PO SCH (05:14)
[2023-02-27] MEDS: HEPARIN SOD (PORCINE) 5000UNITS/ML 1ML VIAL/SYRINGE SC SCH (05:14)
[2023-02-27] MEDS: LEVOTHYROXINE 75MCG TABLET (0.075MG) PO SCH (05:17)
[2023-02-27] MEDS: LEVOTHYROXINE 100MCG TABLET (0.1MG) PO SCH (05:17)
[2023-02-27 05:32] VITALS: BP 166/93; TEMP 98.2; O2SAT 100
[2023-02-27] MEDS: oxyCODONE 5MG TAB PO PRN (06:13)
[2023-02-27] MEDS: SEVELAMER CARBONATE 2.4 GM PO SCH ×2 (07:24→12:14)
[2023-02-27] MEDS: SENOKOT S TAB PO SCH (07:24)
[2023-02-27] MEDS: INSULIN LISPRO (NovoLOG) PER UNIT SC SCH ×2 (07:24→12:13)
[2023-02-27] MEDS: CETIRIZINE (ZyrTEC) 10 MG TAB PO SCH (07:25)
[2023-02-27] MEDS: DULoxetine 30MG CAPSULE (CYMBALTA) PO SCH (07:25)
[2023-02-27] MEDS: VENLAFAXINE **XR** 75MG CAPSULE PO SCH (07:25)
[2023-02-27 07:26] VITALS: BP 166/93
[2023-02-27] MEDS: CINACALCET 30 MG TAB (SENSIPAR) PO SCH (07:26)
[2023-02-27] MEDS: LOSARTAN 50MG TABLET PO SCH (07:26)
[2023-02-27] MEDS: metOLazone 5 MG TAB PO SCH (07:26)
[2023-02-27] MEDS: FUROSEMIDE 20 MG TAB PO SCH (07:26)
[2023-02-27] MEDS: LIDOCAINE 5% (LIDODERM) PATCH TOP SCH (07:27)
[2023-02-27] MEDS: ATORVASTATIN 20 MG TAB PO SCH (07:27)
[2023-02-27 08:00] VITALS: BP 138/69
[2023-02-27] MEDS: ADVAIR HFA 115/21MCG INHALER INH SCH (08:22)
[2023-02-27] MEDS: BUDESONIDE 0.5 MG/2 ML INHALATION SUSPENSION INH SCH (08:22)
[2023-02-27] MEDS: TIOTROPIUM INHALER/CAPSULE (SPIRIVA) INH SCH (08:22)
[2023-02-27] MEDS ORDERED: TOUJ1.2I SC (11:21)
[2023-02-27] MEDS ORDERED: MIRA3350 PO (11:21)
[2023-02-27] MEDS ORDERED: HYDR-3910 PO (11:21)
[2023-02-27] MEDS ORDERED: CEFD300CAP PO (11:21)
== END 2023-02-27 14:00 | disposition home or self-care (01) | DRG 194 ==
LOC: EDBD 04:52 → M ED 04:52 → M ED INP 08:52 → ENRESERV 09:13 → M PCU 10:47 → OBSVTOIN 02-18 14:11 → M MS4PR 02-20 21:36 → M MS5PR 02-23 16:00
PROVIDERS: ADMIT Internal Medicine; ATTEND Internal Medicine
PROC: 5A1D70Z Performance of Urinary Filtration, Intermittent, Less than 6 Hours Per Day (ICD-10-PCS; principal; 2023-02-22)
DX: I13.2 Hypertensive heart and chronic kidney disease with heart failure and with stage 5 chronic kidney disease, or end stage renal disease (principal); I71.11 Aneurysm of the ascending aorta, ruptured; J96.21 Acute and chronic respiratory failure with hypoxia; N18.6 End stage renal disease; E11.22 Type 2 diabetes mellitus with diabetic chronic kidney disease; I27.20 Pulmonary hypertension, unspecified; Z99.81 Dependence on supplemental oxygen; I42.9 Cardiomyopathy, unspecified; J44.9 Chronic obstructive pulmonary disease, unspecified; N39.0 Urinary tract infection, site not specified; E03.9 Hypothyroidism, unspecified; M54.50 Low back pain, unspecified; D63.1 Anemia in chronic kidney disease; E78.5 Hyperlipidemia, unspecified; Z79.4 Long term (current) use of insulin; F41.9 Anxiety disorder, unspecified; F32.A Depression, unspecified; Z79.899 Other long term (current) drug therapy; Z88.2 Allergy status to sulfonamides; Z88.8 Allergy status to other drugs, medicaments and biological substances; Z88.6 Allergy status to analgesic agent; Z88.5 Allergy status to narcotic agent; I50.23 Acute on chronic systolic (congestive) heart failure

== ENCOUNTER 2023-03-29 21:15 | Emergency (ER) | payer OTHER, MEDICAID ==
[~2023-03-29 21:15] MED LIST changes: +CEFD300CAP PO; +HYDR-3910 PO; +SENN-121 PO
[2023-03-29 21:55] LABS: VENOUS BASE EXCESS 0.8 (-2.0-2.0); VENOUS HCO3 26.1 MMOL/L (23.0-27.0); VENOUS O2 SATURATION 67.2 % (60.0-80.0); VENOUS PARTIAL PRESSURE CO2 44.8 mmHg (38.0-50.0); VENOUS PARTIAL PRESSURE O2 39.3 mmHg (30.0-50.0); VENOUS PH 7.383 UNITS (7.330-7.430); VENOUS STANDARD HCO3 24.6 MMOL/L; VENOUS TOTAL CO2 27.5 MMOL/L (24.0-28.0)
[2023-03-29 21:58] LABS: BASO % 0.5 % (0.0-1.0); EOS # 0.1 10^3/uL (0.0-0.5); EOS % 1.1 % (0.0-3.0); HEMATOCRIT 29.5 % (36.0-47.0); HEMOGLOBIN 9.2 g/dl (12.0-15.5); LYMPH # 0.5 10^3/uL (1.5-5.0); LYMPH % 6.1 % (24.0-44.0); MEAN CORPUSCULAR HEMOGLOBIN 28.2 pg (27.0-33.0); MEAN CORPUSCULAR HGB CONC 31.2 g/dl (32.0-36.5); MEAN CORPUSCULAR VOLUME 90.5 fl (80.0-96.0); MONO # 0.5 10^3/uL (0.0-0.8); MONO % 6.4 % (2.0-8.0); NEUTROPHILS # 6.8 10^3/uL (1.5-8.5); NEUTROPHILS % 85.5 % (36.0-66.0); PLATELET COUNT, AUTOMATED 179 10^3/uL (150-450); RED BLOOD COUNT 3.26 10^6/uL (4.00-5.40)
[2023-03-29 22:25] VITALS: TEMP 98.5
[2023-03-29] MEDS ORDERED: IPRATROPIUM 0.5MG/ALBUTEROL 2.5MG INH SOL UD 3ML (DUONEB) NEB ONE (22:25)
[2023-03-29] MEDS ORDERED: methylPREDNISolone 125MG 2ML VIAL IV ONE (22:25)
[2023-03-29 22:36] LABS: ALBUMIN 3.2 G/DL (3.2-5.2); ALKALINE PHOSPHATASE 92 U/L (46-116); ALT/SGPT < 9 U/L (7.0-40); AST/SGOT 11 U/L (<34); BILIRUBIN,DIRECT 0.2 MG/DL (<0.4); BILIRUBIN,TOTAL 0.4 MG/DL (0.3-1.2); BLOOD UREA NITROGEN 38 MG/DL (9-23); CALCIUM LEVEL 10.1 MG/DL (8.3-10.6); CARBON DIOXIDE LEVEL 31 MMOL/L (20-31); CHLORIDE LEVEL 98 MMOL/L (98-107); CK-MB VALUE MASS < 1.0 NG/ML (<3.6); CPK CREATINE PHOSPHOKINASE 37 U/L (34-145); CREATININE FOR GFR 7.38 MG/DL (0.55-1.30); GLUCOSE, FASTING 68 MG/DL (74-106); SODIUM LEVEL 138 MMOL/L (136-145); TOTAL PROTEIN 7.1 G/DL (5.7-8.2)
[2023-03-29 23:23] LABS: CK-MB VALUE MASS < 1.0 NG/ML (<3.6)
[2023-03-29 23:31] LABS: CPK CREATINE PHOSPHOKINASE 42 U/L (34-145); MB/CK RELATIVE INDEX 2.38 (< OR =4)
[2023-03-30 00:45] VITALS: BP 164/75; O2SAT 90
== END 2023-03-30 01:12 | disposition home or self-care (01) ==
LOC: M ED 21:15
DX: R06.00 Dyspnea, unspecified (principal); S92.351A Displaced fracture of fifth metatarsal bone, right foot, initial encounter for closed fracture; X58.XXXA Exposure to other specified factors, initial encounter; Y92.89 Other specified places as the place of occurrence of the external cause; Y93.89 Activity, other specified; Y99.8 Other external cause status; I10 Essential (primary) hypertension; E11.9 Type 2 diabetes mellitus without complications; I50.20 Unspecified systolic (congestive) heart failure; K21.9 Gastro-esophageal reflux disease without esophagitis; Z99.2 Dependence on renal dialysis; E55.9 Vitamin D deficiency, unspecified; Z87.891 Personal history of nicotine dependence; Z79.899 Other long term (current) drug therapy; Z88.5 Allergy status to narcotic agent; Z88.2 Allergy status to sulfonamides; Z88.8 Allergy status to other drugs, medicaments and biological substances; Z79.4 Long term (current) use of insulin; Z79.51 Long term (current) use of inhaled steroids
CPT/HCPCS: 71045; 73660; 80048; 80076; 82550; 82553; 82803; 83605; 83880; 85025; 87040; 87486; 87581; 87633; 87798; 93005; 93041; 94640; 94760; 96374; 99285; J2930

== ENCOUNTER 2023-04-02 00:38 | Inpatient (IN) | payer OTHER, MEDICAID ==
[2023-04-02] VITALS (26 sets, daily range): BP systolic 101–167; BP diastolic 53–76; TEMP 96.9–98; O2SAT 91–98
[~2023-04-02] VITALS: Ht 195.6 cm; Wt 106.5 kg
[2023-04-02] MEDS: propofoL 1,000 MG in IV 1 EA IV SCH ×10 (01:07→22:40)
[2023-04-02] MEDS ORDERED: ISOVUE-370 76% 100ML VIAL As Ordered ONE (01:13)
[2023-04-02 01:22] LABS: ABG BASE EXCESS -3.3 (-2.0-2.0); ABG HCO3 24.3 MMOL/L (22.0-26.0); ABG O2 SATURATION 97.2 % (95.0-99.0); ABG PARTIAL PRESSURE CO2 57.8 mmHg (35.0-45.0); ABG PARTIAL PRESSURE O2 119.9 mmHg (75.0-100.0); ABG STANDARD HCO3 21.7 MMOL/L. (22.0-26.0); ABG TOTAL CO2 26.1 MMOL/L (23.0-31.0)
[2023-04-02 01:26] LABS: ABG pH (ARTERIAL) 7.242 UNITS (7.350-7.450)
[2023-04-02 01:45] LABS: BASO # 0.1 10^3/uL (0.0-0.2); BASO % 0.6 % (0.0-1.0); EOS # 0.2 10^3/uL (0.0-0.5); EOS % 1.1 % (0.0-3.0); HEMOGLOBIN 9.3 g/dl (12.0-15.5); LYMPH # 1.7 10^3/uL (1.5-5.0); LYMPH % 9.9 % (24.0-44.0); MEAN CORPUSCULAR HEMOGLOBIN 27.9 pg (27.0-33.0); MEAN CORPUSCULAR HGB CONC 29.1 g/dl (32.0-36.5); MEAN CORPUSCULAR VOLUME 96.1 fl (80.0-96.0); MONO # 1.3 10^3/uL (0.0-0.8); MONO % 7.4 % (2.0-8.0); NEUTROPHILS # 13.6 10^3/uL (1.5-8.5); NEUTROPHILS % 79.4 % (36.0-66.0); PLATELET COUNT, AUTOMATED 349 10^3/uL (150-450); RED BLOOD COUNT 3.33 10^6/uL (4.00-5.40); WHITE BLOOD COUNT 17.1 10^3/uL (4.0-10.0)
[2023-04-02] MEDS ORDERED: PIPERACILLIN/TAZOBACTAM SOD 3.375 GM in D5W MINI-BAG PLUS 50 ML IV ONE (01:55)
[2023-04-02] MEDS ORDERED: VANCOMYCIN HCL 1,000 MG in IV FLUID PLACE HOLDER 1 EA IV ONE (01:55)
[2023-04-02 02:22] LABS: ALBUMIN 3.1 G/DL (3.2-5.2); BILIRUBIN,DIRECT 0.2 MG/DL (<0.4); BILIRUBIN,TOTAL 0.5 MG/DL (0.3-1.2); CALCIUM LEVEL 10.7 MG/DL (8.3-10.6); CK-MB VALUE MASS 1.4 NG/ML (<3.6); CREATININE FOR GFR 9.37 MG/DL (0.55-1.30); GLOMERULAR FILTRATION RATE 4.5 (>45); MB/CK RELATIVE INDEX 3.88 (< OR =4); POTASSIUM SERUM 4.4 MMOL/L (3.5-5.1); THYROID STIMULATING HORMONE 12.998 uIU/ML (0.55-4.78); TOTAL PROTEIN 7.1 G/DL (5.7-8.2)
[2023-04-02] MEDS ORDERED: MIDAZOLAM INJ 2MG/2ML VIAL IV ONE (02:55)
[2023-04-02] MEDS ORDERED: VANCOMYCIN HCL 1,000 MG, VIAL MATE ADAPTER 1 EACH in D5W 250 ML IV ONE (03:00)
[2023-04-02 03:20] LABS: CK-MB VALUE MASS < 1.0 NG/ML (<3.6)
[2023-04-02 03:23] LABS: CPK CREATINE PHOSPHOKINASE 51 U/L (34-145); MB/CK RELATIVE INDEX 1.96 (< OR =4)
[2023-04-02] MEDS ORDERED: HYDR-3363 PO (04:53)
[2023-04-02] MEDS ORDERED: TRAM100T21 PO (04:53)
[2023-04-02] MEDS ORDERED: IPRA0.00 INH (04:53)
[2023-04-02] MEDS ORDERED: MIRA1POW3 PO (04:53)
[2023-04-02] MEDS ORDERED: FLUT1BLS8 INH (04:53)
[2023-04-02] MEDS ORDERED: BUDE0.5S6 INH (04:53)
[2023-04-02] MEDS ORDERED: HYDR-3910 PO (04:53)
[2023-04-02] MEDS ORDERED: ATOR1TAB19 PO (04:53)
[2023-04-02] MEDS ORDERED: HOME MED LIST COMPLETE! XX SCH (04:55)
[2023-04-02] MEDS ORDERED: GLUCOSE 4GM CHEW TABLET PO PRN (05:25)
[2023-04-02] MEDS ORDERED: PIPERACILLIN/TAZOBACTAM SOD 2.25 GM in D5W MINI-BAG PLUS 50 ML IV SCH (05:25)
[2023-04-02] MEDS ORDERED: hydrALAZINE 20MG/ML 1ML VIAL IV PRN (05:25)
[2023-04-02] MEDS ORDERED: GLUCAGON INJ 1MG VIAL SC PRN (05:25)
[2023-04-02] MEDS ORDERED: DEXTROSE 50% 50ML SYRINGE IV PRN (05:25)
[2023-04-02] MEDS: METOPROLOL 5 MG/5 ML VIAL IV SCH ×4 (06:00→23:49)
[2023-04-02] MEDS: INSULIN LISPRO (NovoLOG) PER UNIT SC SCH ×4 (06:00→23:49)
[2023-04-02 06:29] LABS: ABG BASE EXCESS 3.2 (-2.0-2.0); ABG HCO3 27.5 MMOL/L (22.0-26.0); ABG O2 SATURATION 97.9 % (95.0-99.0); ABG PARTIAL PRESSURE CO2 41.1 mmHg (35.0-45.0); ABG PARTIAL PRESSURE O2 110.7 mmHg (75.0-100.0); ABG STANDARD HCO3 27.3 MMOL/L. (22.0-26.0); ABG TOTAL CO2 28.8 MMOL/L (23.0-31.0); ABG pH (ARTERIAL) 7.444 UNITS (7.350-7.450)
[2023-04-02 07:26] LABS: HEMATOCRIT 23.1 % (36.0-47.0); MEAN CORPUSCULAR HEMOGLOBIN 28.7 pg (27.0-33.0); MEAN CORPUSCULAR HGB CONC 31.6 g/dl (32.0-36.5); MEAN CORPUSCULAR VOLUME 90.9 fl (80.0-96.0); RED BLOOD COUNT 2.54 10^6/uL (4.00-5.40); WHITE BLOOD COUNT 10.4 10^3/uL (4.0-10.0)
[2023-04-02 07:39] LABS: HEMOGLOBIN 7.3 g/dl (12.0-15.5); PLATELET COUNT, AUTOMATED 176 10^3/uL (150-450)
[2023-04-02 08:05] LABS: FREE T4 1.23 NG/DL (0.89-1.76)
[2023-04-02 08:08] LABS: CREATININE FOR GFR 9.52 MG/DL (0.55-1.30); GLOMERULAR FILTRATION RATE 4.5 (>45); POTASSIUM SERUM 4.2 MMOL/L (3.5-5.1)
[2023-04-02] MEDS ORDERED: dexmedeTOMIDine (4MCG/ML)200MCG/50ML BTL (PRECEDEX) As Ordered ONE (08:23)
[2023-04-02] MEDS: PANTOPRAZOLE 40MG VIAL IV SCH (08:27)
[2023-04-02] MEDS: AZITHROMYCIN INJ 500 MG, VIAL MATE ADAPTER 1 EACH in D5W 250 ML IV SCH (08:27)
[2023-04-02] MEDS: dexmedeTOMidine 200 MCG in IV 1 EA IV SCH ×6 (08:44→22:02)
[2023-04-02] MEDS: CHLORHEXIDINE GLUCONATE 0.12 % 15ML UDC (PERIDEX ORAL RINSE) MT SCH ×2 (08:44→22:01)
[2023-04-02] MEDS ORDERED: SODIUM CHLORIDE 0.9% 1000ML IV PRN (10:15)
[2023-04-02] MEDS ORDERED: HEPARIN 1,000UNITS/ML 10ML VIAL (FOR RADIOLOGY & DIALYSIS ONLY) XX SCH (10:15)
[2023-04-02] MEDS ORDERED: ETOMIDATE INJ 20MG/10ML VIAL ONE (10:23)
[2023-04-02] MEDS ORDERED: ROCURONIUM BROMIDE 50MG/5ML VIAL ONE (10:23)
[2023-04-02] MEDS: PIPERACILLIN/TAZOBACTAM SOD 2.25 GM in D5W MINI-BAG PLUS 50 ML IV SCH ×2 (11:03→18:43)
[2023-04-02] MEDS: HEPARIN SOD (PORCINE) 5000UNITS/ML 1ML VIAL/SYRINGE SC SCH ×2 (13:50→22:01)
[2023-04-02] MEDS ORDERED: VANCOMYCIN HCL 1,000 MG, VIAL MATE ADAPTER 1 EACH in D5W 250 ML IV SCH (15:00)
[2023-04-02] MEDS ORDERED: LORazepam 2 MG/ML 1ML VIAL IV STA (16:03)
[2023-04-02] MEDS: methylPREDNISolone 40MG 1ML VIAL IV SCH (17:33)
[2023-04-03] VITALS (64 sets, daily range): BP systolic 82–162; BP diastolic 49–77; TEMP 97.3–100.3; O2SAT 92–99
[2023-04-03] MEDS: dexmedeTOMidine 200 MCG in IV 1 EA IV SCH ×12 (00:21→21:58)
[2023-04-03] MEDS: PIPERACILLIN/TAZOBACTAM SOD 2.25 GM in D5W MINI-BAG PLUS 50 ML IV SCH ×3 (02:22→18:02)
[2023-04-03] MEDS: propofoL 1,000 MG in IV 1 EA IV SCH ×8 (02:24→22:52)
[2023-04-03 04:56] LABS: BASO % 0.3 % (0.0-1.0); EOS % 0.1 % (0.0-3.0); HEMATOCRIT 25.7 % (36.0-47.0); LYMPH # 0.3 10^3/uL (1.5-5.0); LYMPH % 2.2 % (24.0-44.0); MEAN CORPUSCULAR HEMOGLOBIN 28.8 pg (27.0-33.0); MEAN CORPUSCULAR HGB CONC 31.1 g/dl (32.0-36.5); MEAN CORPUSCULAR VOLUME 92.4 fl (80.0-96.0); MONO # 0.4 10^3/uL (0.0-0.8); MONO % 3.7 % (2.0-8.0); NEUTROPHILS # 10.6 10^3/uL (1.5-8.5); PLATELET COUNT, AUTOMATED 212 10^3/uL (150-450); RED BLOOD COUNT 2.78 10^6/uL (4.00-5.40); WHITE BLOOD COUNT 11.4 10^3/uL (4.0-10.0)
[2023-04-03 05:32] LABS: CPK CREATINE PHOSPHOKINASE 85 U/L (34-145)
[2023-04-03 05:34] LABS: ALBUMIN 2.7 G/DL (3.2-5.2); ALKALINE PHOSPHATASE 81 U/L (46-116); ALT/SGPT 12 U/L (7.0-40); AST/SGOT 13 U/L (<34); BILIRUBIN,TOTAL 0.3 MG/DL (0.3-1.2); BLOOD UREA NITROGEN 38 MG/DL (9-23); CALCIUM LEVEL 9.9 MG/DL (8.3-10.6); CARBON DIOXIDE LEVEL 27 MMOL/L (20-31); CHLORIDE LEVEL 96 MMOL/L (98-107); CK-MB VALUE MASS < 1.0 NG/ML (<3.6); CREATININE FOR GFR 6.22 MG/DL (0.55-1.30); GLOMERULAR FILTRATION RATE 7.3 (>45); GLUCOSE, FASTING 200 MG/DL (74-106); MAGNESIUM LEVEL 2.1 MG/DL (1.8-2.4); MB/CK RELATIVE INDEX 1.17 (< OR =4); POTASSIUM SERUM 5.2 MMOL/L (3.5-5.1); SODIUM LEVEL 134 MMOL/L (136-145); TOTAL PROTEIN 6.5 G/DL (5.7-8.2)
[2023-04-03 05:38] LABS: ABG BASE EXCESS 1.6 (-2.0-2.0); ABG HCO3 25.4 MMOL/L (22.0-26.0); ABG O2 SATURATION 94.7 % (95.0-99.0); ABG PARTIAL PRESSURE CO2 36.5 mmHg (35.0-45.0); ABG PARTIAL PRESSURE O2 80.3 mmHg (75.0-100.0); ABG STANDARD HCO3 25.8 MMOL/L. (22.0-26.0); ABG TOTAL CO2 26.5 MMOL/L (23.0-31.0)
[2023-04-03] MEDS ORDERED: HEPARIN 1,000UNITS/ML 10ML VIAL (FOR RADIOLOGY & DIALYSIS ONLY) XX SCH (06:00)
[2023-04-03] MEDS: METOPROLOL 5 MG/5 ML VIAL IV SCH ×2 (06:07→12:15)
[2023-04-03] MEDS: HEPARIN SOD (PORCINE) 5000UNITS/ML 1ML VIAL/SYRINGE SC SCH ×3 (06:07→21:52)
[2023-04-03] MEDS: AZITHROMYCIN INJ 500 MG, VIAL MATE ADAPTER 1 EACH in D5W 250 ML IV SCH (06:07)
[2023-04-03] MEDS: INSULIN LISPRO (NovoLOG) PER UNIT SC SCH ×3 (06:08→17:29)
[2023-04-03] MEDS: CHLORHEXIDINE GLUCONATE 0.12 % 15ML UDC (PERIDEX ORAL RINSE) MT SCH ×2 (10:14→20:10)
[2023-04-03] MEDS: PANTOPRAZOLE 40MG VIAL IV SCH (10:14)
[2023-04-03] MEDS ORDERED: SODIUM CHLORIDE 0.9% 1000ML IV PRN (10:55)
[2023-04-03] MEDS: NOREPINEPHRINE 4MG IN D5 250ML 4 MG in IV 1 EA IV SCH ×6 (14:51→23:16)
[2023-04-03] MEDS: methylPREDNISolone 40MG 1ML VIAL IV SCH (16:06)
[2023-04-04] VITALS (23 sets, daily range): BP systolic 78–146; BP diastolic 49–69; TEMP 100–101.4; O2SAT 91–100
[2023-04-04] MEDS: dexmedeTOMidine 200 MCG in IV 1 EA IV SCH ×9 (00:01→17:14)
[2023-04-04] MEDS: INSULIN LISPRO (NovoLOG) PER UNIT SC SCH ×3 (00:01→12:19)
[2023-04-04] MEDS ORDERED: ACETAMINOPHEN TAB 650MG DOSE (2X325MG) PO ONE (01:00)
[2023-04-04] MEDS: propofoL 1,000 MG in IV 1 EA IV SCH ×7 (01:55→17:14)
[2023-04-04] MEDS: PIPERACILLIN/TAZOBACTAM SOD 2.25 GM in D5W MINI-BAG PLUS 50 ML IV SCH (03:03)
[2023-04-04 04:57] LABS: BASO % 0.3 % (0.0-1.0); HEMATOCRIT 26.5 % (36.0-47.0); HEMOGLOBIN 8.1 g/dl (12.0-15.5); LYMPH # 0.7 10^3/uL (1.5-5.0); LYMPH % 6.3 % (24.0-44.0); MEAN CORPUSCULAR HEMOGLOBIN 27.5 pg (27.0-33.0); MEAN CORPUSCULAR HGB CONC 30.6 g/dl (32.0-36.5); MEAN CORPUSCULAR VOLUME 89.8 fl (80.0-96.0); MONO % 9.4 % (2.0-8.0); NEUTROPHILS # 8.7 10^3/uL (1.5-8.5); NEUTROPHILS % 82.9 % (36.0-66.0); PLATELET COUNT, AUTOMATED 260 10^3/uL (150-450); RED BLOOD COUNT 2.95 10^6/uL (4.00-5.40); WHITE BLOOD COUNT 10.5 10^3/uL (4.0-10.0)
[2023-04-04] MEDS ORDERED: ACETAMINOPHEN *IV* 1,000 MG in IV 1 EA IV ONE (05:00)
[2023-04-04 05:32] LABS: ALBUMIN 2.8 G/DL (3.2-5.2); BILIRUBIN,TOTAL 0.2 MG/DL (0.3-1.2); CALCIUM LEVEL 9.3 MG/DL (8.3-10.6); CREATININE FOR GFR 7.71 MG/DL (0.55-1.30); GLOMERULAR FILTRATION RATE 5.7 (>45); POTASSIUM SERUM 5.6 MMOL/L (3.5-5.1)
[2023-04-04 05:38] LABS: ABG HCO3 23.2 MMOL/L (22.0-26.0); ABG PARTIAL PRESSURE CO2 36.8 mmHg (35.0-45.0); ABG PARTIAL PRESSURE O2 90.2 mmHg (75.0-100.0); ABG STANDARD HCO3 23.6 MMOL/L. (22.0-26.0); ABG TOTAL CO2 24.4 MMOL/L (23.0-31.0); ABG pH (ARTERIAL) 7.418 UNITS (7.350-7.450)
[2023-04-04] MEDS: AZITHROMYCIN INJ 500 MG, VIAL MATE ADAPTER 1 EACH in D5W 250 ML IV SCH (05:53)
[2023-04-04] MEDS: HEPARIN SOD (PORCINE) 5000UNITS/ML 1ML VIAL/SYRINGE SC SCH ×2 (05:54→15:26)
[2023-04-04] MEDS ORDERED: HEPARIN 1,000UNITS/ML 10ML VIAL (FOR RADIOLOGY & DIALYSIS ONLY) IV PRN ×2 (06:00→12:35)
[2023-04-04] MEDS ORDERED: SODIUM CHLORIDE 0.9% 1000ML IV PRN (06:00)
[2023-04-04] MEDS: NOREPINEPHRINE 4MG IN D5 250ML 4 MG in IV 1 EA IV SCH ×4 (06:00→12:40)
[2023-04-04] MEDS ORDERED: HEPARIN 1,000UNITS/ML 10ML VIAL (FOR RADIOLOGY & DIALYSIS ONLY) XX SCH (06:00)
[2023-04-04] MEDS: CHLORHEXIDINE GLUCONATE 0.12 % 15ML UDC (PERIDEX ORAL RINSE) MT SCH (08:15)
[2023-04-04] MEDS: PANTOPRAZOLE 40MG VIAL IV SCH (08:15)
[2023-04-04] MEDS ORDERED: PIPERACILLIN/TAZOBACTAM SOD 4.5 GM in D5W MINI-BAG PLUS 50 ML IV SCH (11:00)
[2023-04-04] MEDS ORDERED: SODIUM CHLORIDE 0.9% INJ 10 ML SYR IV PRN (12:35)
[2023-04-04] MEDS ORDERED: ACETAMINOPHEN 325MG/10.15ML UDC GT PRN (13:00)
[2023-04-04] MEDS ORDERED: HEPARIN 100 UNIT/ML *20ML* SYRINGE CRRT INFUSION CRRT SCH (14:00)
[2023-04-04] MEDS ORDERED: methylPREDNISolone 40MG 1ML VIAL IV SCH (17:00)
== END 2023-04-04 17:50 | disposition short-term general hospital (02) | DRG 470 ==
LOC: M ED 00:38 → EDBD 00:38 → M ICU 05:21
PROVIDERS: ADMIT Internal Medicine Critical Care Medicine; ATTEND Internal Medicine Critical Care Medicine
PROC: 0BH17EZ Insertion of Endotracheal Airway into Trachea, Via Natural or Artificial Opening (ICD-10-PCS; principal; 2023-04-02)
PROC: 5A1D70Z Performance of Urinary Filtration, Intermittent, Less than 6 Hours Per Day (ICD-10-PCS; 2023-04-02)
PROC: 5A1945Z Respiratory Ventilation, 24-96 Consecutive Hours (ICD-10-PCS; 2023-04-02)
PROC: 02HV33Z Insertion of Infusion Device into Superior Vena Cava, Percutaneous Approach (ICD-10-PCS; 2023-04-03)
DX: I12.0 Hypertensive chronic kidney disease with stage 5 chronic kidney disease or end stage renal disease (principal); N18.6 End stage renal disease; J96.21 Acute and chronic respiratory failure with hypoxia; J18.9 Pneumonia, unspecified organism; J91.8 Pleural effusion in other conditions classified elsewhere; E11.22 Type 2 diabetes mellitus with diabetic chronic kidney disease; I27.20 Pulmonary hypertension, unspecified; J44.0 Chronic obstructive pulmonary disease with (acute) lower respiratory infection; J96.02 Acute respiratory failure with hypercapnia; J43.9 Emphysema, unspecified; K74.60 Unspecified cirrhosis of liver; Z99.2 Dependence on renal dialysis; D63.8 Anemia in other chronic diseases classified elsewhere; E87.29 Other acidosis; E03.9 Hypothyroidism, unspecified; G93.41 Metabolic encephalopathy; R74.01 Elevation of levels of liver transaminase levels; Z87.891 Personal history of nicotine dependence; Z66 Do not resuscitate; Z20.822 Contact with and (suspected) exposure to COVID-19; Z79.4 Long term (current) use of insulin; Z79.890 Hormone replacement therapy; Z79.899 Other long term (current) drug therapy; Z99.81 Dependence on supplemental oxygen; Z88.2 Allergy status to sulfonamides; Z88.5 Allergy status to narcotic agent; Z88.8 Allergy status to other drugs, medicaments and biological substances; E78.5 Hyperlipidemia, unspecified; I08.0 Rheumatic disorders of both mitral and aortic valves; Z90.79 Acquired absence of other genital organ(s); Z90.49 Acquired absence of other specified parts of digestive tract

== ENCOUNTER 2023-04-30 14:18 | Inpatient (IN) | payer MEDICAID, OTHER ==
[~2023-04-30] VITALS: Ht 170.2 cm; Wt 102.2 kg
[~2023-04-30 14:18] MED LIST changes: +FLUT1BLS8 INH; +IPRA0.00 INH; +MIRA1POW3 PO
[2023-04-30] MEDS ORDERED: ACETAMINOPHEN TAB 650MG DOSE (2X325MG) PO ONE (15:20)
[2023-04-30 17:45] LABS: BASO % 0.3 % (0.0-1.0); HEMATOCRIT 27.7 % (36.0-47.0); HEMOGLOBIN 8.8 g/dl (12.0-15.5); LYMPH # 0.4 10^3/uL (1.5-5.0); LYMPH % 6.2 % (24.0-44.0); MEAN CORPUSCULAR HEMOGLOBIN 28.9 pg (27.0-33.0); MEAN CORPUSCULAR HGB CONC 31.8 g/dl (32.0-36.5); MEAN CORPUSCULAR VOLUME 90.8 fl (80.0-96.0); MONO # 0.6 10^3/uL (0.0-0.8); MONO % 9.8 % (2.0-8.0); NEUTROPHILS % 82.5 % (36.0-66.0); PLATELET COUNT, AUTOMATED 233 10^3/uL (150-450); RED BLOOD COUNT 3.05 10^6/uL (4.00-5.40)
[2023-04-30 17:59] LABS: INR 1.1; PARTIAL THROMBOPLASTIN TIME 42.1 SECONDS (24.8-34.2); PROTHROMBIN TIME 13.9 SECONDS (12.5-14.5)
[2023-04-30 18:07] LABS: LIPASE 59 U/L (12-53)
[2023-04-30 18:09] LABS: CPK CREATINE PHOSPHOKINASE 48 U/L (34-145)
[2023-04-30 18:17] LABS: ALBUMIN 2.6 G/DL (3.2-5.2); ALKALINE PHOSPHATASE 79 U/L (46-116); ALT/SGPT < 9 U/L (7.0-40); AST/SGOT 19 U/L (<34); BILIRUBIN,DIRECT 0.2 MG/DL (<0.4); BILIRUBIN,TOTAL 0.3 MG/DL (0.3-1.2); BLOOD UREA NITROGEN 21 MG/DL (9-23); CARBON DIOXIDE LEVEL 30 MMOL/L (20-31); CHLORIDE LEVEL 96 MMOL/L (98-107); CK-MB VALUE MASS < 1.0 NG/ML (<3.6); CREATININE FOR GFR 5.98 MG/DL (0.55-1.30); FREE T4 1.36 NG/DL (0.89-1.76); GLOMERULAR FILTRATION RATE 7.6 (>45); GLUCOSE, FASTING 32 MG/DL (74-106); MB/CK RELATIVE INDEX 2.08 (< OR =4); POTASSIUM SERUM 4.1 MMOL/L (3.5-5.1); SODIUM LEVEL 134 MMOL/L (136-145); THYROID STIMULATING HORMONE 5.512 uIU/ML (0.55-4.78); THYROXINE (T4) 12.1 UG/DL (4.5-10.9); TOTAL PROTEIN 6.4 G/DL (5.7-8.2)
[2023-04-30 19:38] LABS: RSV AMPLIFICATION NEGATIVE (NEGATIVE)
[2023-04-30] MEDS ORDERED: D5W/0.45% SODIUM CHLORIDE 1,000 ML IV SCH (19:55)
[2023-04-30] MEDS ORDERED: DEXTROSE 50% 50ML SYRINGE IV STA (20:30)
[2023-04-30] MEDS ORDERED: ALBUTEROL SULFATE 2.5MG/0.5ML INH NEB SOLN NEB PRN (21:40)
[2023-04-30] MEDS: HEPARIN SOD (PORCINE) 5000UNITS/ML 1ML VIAL/SYRINGE SQ SCH (22:00)
[2023-04-30] MEDS ORDERED: TRAZ1TAB10 PO (23:34)
[2023-04-30] MEDS ORDERED: TOUJ300I2 SC (23:34)
[2023-04-30] MEDS ORDERED: TRAZ-257 PO (23:34)
[2023-04-30] MEDS ORDERED: BUSP5TA PO (23:34)
[2023-04-30] MEDS ORDERED: LOSA25TA13 PO (23:34)
[2023-04-30] MEDS ORDERED: ACET1TAB55 PO (23:34)
[2023-04-30] MEDS ORDERED: HOME MED LIST COMPLETE! XX SCH (23:45)
[2023-05-01] VITALS (7 sets, daily range): BP systolic 136–183; BP diastolic 70–87; TEMP 97–98.5; O2SAT 91–99
[2023-05-01] MEDS ORDERED: DEXTROSE 50% 50ML SYRINGE IV STA (00:47)
[2023-05-01] MEDS ORDERED: IPRATROPIUM 0.5MG/ALBUTEROL 2.5MG INH SOL UD 3ML (DUONEB) NEB SCH (02:00)
[2023-05-01] MEDS ORDERED: traZODone 50 MG TAB PO ONE (05:00)
[2023-05-01] MEDS: HEPARIN SOD (PORCINE) 5000UNITS/ML 1ML VIAL/SYRINGE SQ SCH ×3 (05:14→21:12)
[2023-05-01] MEDS ORDERED: GLUCOSE 4GM CHEW TABLET PO PRN (05:30)
[2023-05-01] MEDS ORDERED: DEXTROSE 50% 50ML SYRINGE IV PRN (05:30)
[2023-05-01] MEDS ORDERED: GLUCAGON INJ 1MG VIAL SC PRN (05:30)
[2023-05-01 05:56] LABS: BLOOD UREA NITROGEN 26 MG/DL (9-23); CALCIUM LEVEL 8.5 MG/DL (8.3-10.6); CARBON DIOXIDE LEVEL 28 MMOL/L (20-31); CHLORIDE LEVEL 96 MMOL/L (98-107); CREATININE FOR GFR 6.67 MG/DL (0.55-1.30); GLOMERULAR FILTRATION RATE 6.7 (>45); GLUCOSE, FASTING 72 MG/DL (74-106); POTASSIUM SERUM 4.5 MMOL/L (3.5-5.1); SODIUM LEVEL 134 MMOL/L (136-145)
[2023-05-01] MEDS ORDERED: MIRALAX *UNIT DOSE* 17GM PACKET PO PRN (07:25)
[2023-05-01] MEDS ORDERED: SENOKOT S TAB PO PRN (07:25)
[2023-05-01] MEDS ORDERED: FLUTICASONE PROP 0.05% NASAL SPRAY 16 GM (FLONASE) NARES PRN (07:25)
[2023-05-01] MEDS ORDERED: traZODone 50 MG TAB PO PRN (07:25)
[2023-05-01] MEDS ORDERED: tiZANidine 4 MG TAB PO PRN (07:25)
[2023-05-01 07:48] LABS: PROCALCITONIN 1.43 ng/ml
[2023-05-01 07:52] LABS: BASO % 0.4 % (0.0-1.0); EOS % 0.2 % (0.0-3.0); HEMATOCRIT 27.7 % (36.0-47.0); HEMOGLOBIN 8.7 g/dl (12.0-15.5); LYMPH # 0.4 10^3/uL (1.5-5.0); MEAN CORPUSCULAR HEMOGLOBIN 28.8 pg (27.0-33.0); MEAN CORPUSCULAR HGB CONC 31.4 g/dl (32.0-36.5); MEAN CORPUSCULAR VOLUME 91.7 fl (80.0-96.0); MONO # 0.6 10^3/uL (0.0-0.8); MONO % 11.2 % (2.0-8.0); PLATELET COUNT, AUTOMATED 214 10^3/uL (150-450); RED BLOOD COUNT 3.02 10^6/uL (4.00-5.40)
[2023-05-01] MEDS: (RENVELA) SEVELAMER **CARBONate** 800 MG TAB PO SCH ×3 (08:00→16:05)
[2023-05-01] MEDS ORDERED: DOXYCYCLINE HYCLATE 100MG TABLET PO SCH (08:25)
[2023-05-01] MEDS ORDERED: cefTRIAXone SOD 1 GM in D5W MINI-BAG PLUS 50 ML IV SCH (09:00)
[2023-05-01] MEDS ORDERED: BUDESONIDE 0.5 MG/2 ML INHALATION SUSPENSION INH SCH (09:00)
[2023-05-01] MEDS: LIDOCAINE 5% (LIDODERM) PATCH TOP SCH ×2 (09:00→10:19)
[2023-05-01] MEDS: TIOTROPIUM INHALER/CAPSULE (SPIRIVA) INH SCH (09:29)
[2023-05-01] MEDS: SYMBICORT 160/4.5MCG INHALER 6GM INH SCH ×2 (09:29→21:47)
[2023-05-01] MEDS ORDERED: HEPARIN 1,000UNITS/ML 10ML VIAL (FOR RADIOLOGY & DIALYSIS ONLY) XX SCH (09:50)
[2023-05-01] MEDS ORDERED: LIDOCAINE 1% SDV 5ML VIAL SC PRN (09:50)
[2023-05-01] MEDS ORDERED: SODIUM CHLORIDE 0.9% 1000ML IV PRN (09:50)
[2023-05-01] MEDS: LEVOTHYROXINE 75MCG TABLET (0.075MG) PO SCH (10:15)
[2023-05-01] MEDS: LOSARTAN 25 MG TAB PO SCH (10:16)
[2023-05-01] MEDS: LEVOTHYROXINE 100MCG TABLET (0.1MG) PO SCH (10:16)
[2023-05-01] MEDS: **hydrALAZINE HCL** 25 MG TAB PO SCH ×3 (10:17→21:12)
[2023-05-01] MEDS: busPIRone 5 MG TAB PO SCH ×2 (10:18→21:11)
[2023-05-01] MEDS: VENLAFAXINE **XR** 75MG CAPSULE PO SCH (10:18)
[2023-05-01] MEDS: CINACALCET 30 MG TAB (SENSIPAR) PO SCH (10:18)
[2023-05-01] MEDS: DOXYCYCLINE HYCLATE 100MG TABLET PO SCH ×2 (10:21→21:11)
[2023-05-01] MEDS ORDERED: ALBUTEROL 90 MCG/ACT 8GM HFA INHALER INH PRN ×2 (10:40→11:35)
[2023-05-01] MEDS ORDERED: cefTRIAXone SOD 1 GM in D5W MINI-BAG PLUS 50 ML IV ONE (11:00)
[2023-05-01] MEDS: LACTOBACILLUS ACIDOPHILUS CAP (BACID) PO SCH ×2 (12:10→17:06)
[2023-05-01] MEDS: ACETAMINOPHEN TAB 650MG DOSE (2X325MG) PO PRN (12:11)
[2023-05-01] MEDS ORDERED: PILL CUTTER 1 EACH XX ONE (12:17)
[2023-05-01] MEDS ORDERED: ATORVASTATIN 10 MG TAB PO SCH (21:00)
[2023-05-01] MEDS ORDERED: traZODone 100 MG TAB PO SCH (21:00)
[2023-05-01] MEDS ORDERED: METOPROLOL SUCC (TopROL XL) 50MG **XL** TAB PO SCH (21:00)
[2023-05-01] MEDS ORDERED: traMADol ER 100MG TABLET (ULTRAM ER) PO SCH (21:00)
[2023-05-02] VITALS: BP 147/72; TEMP 97.2; O2SAT 98
[2023-05-02] MEDS ORDERED: PILL CUTTER 1 EACH XX ONE (00:11)
[2023-05-02 04:54] LABS: BASO % 0.3 % (0.0-1.0); EOS % 0.3 % (0.0-3.0); HEMATOCRIT 25.9 % (36.0-47.0); HEMOGLOBIN 8.4 g/dl (12.0-15.5); LYMPH # 0.3 10^3/uL (1.5-5.0); MEAN CORPUSCULAR HEMOGLOBIN 29.3 pg (27.0-33.0); MEAN CORPUSCULAR HGB CONC 32.4 g/dl (32.0-36.5); MEAN CORPUSCULAR VOLUME 90.2 fl (80.0-96.0); MONO # 0.7 10^3/uL (0.0-0.8); MONO % 18.3 % (2.0-8.0); NEUTROPHILS # 2.9 10^3/uL (1.5-8.5); NEUTROPHILS % 72.6 % (36.0-66.0); PLATELET COUNT, AUTOMATED 186 10^3/uL (150-450); RED BLOOD COUNT 2.87 10^6/uL (4.00-5.40)
[2023-05-02 05:00] VITALS: BP 144/68; TEMP 97.7; O2SAT 97
[2023-05-02 05:11] LABS: ALBUMIN 2.4 G/DL (3.2-5.2); CALCIUM LEVEL 8.1 MG/DL (8.3-10.6); CREATININE FOR GFR 9.15 MG/DL (0.55-1.30); GLOMERULAR FILTRATION RATE 4.7 (>45); PHOSPHORUS LEVEL 5.8 MG/DL (2.4-5.1); POTASSIUM SERUM 4.6 MMOL/L (3.5-5.1)
[2023-05-02] MEDS: LEVOTHYROXINE 75MCG TABLET (0.075MG) PO SCH (05:15)
[2023-05-02] MEDS: LEVOTHYROXINE 100MCG TABLET (0.1MG) PO SCH (05:15)
[2023-05-02] MEDS: HEPARIN SOD (PORCINE) 5000UNITS/ML 1ML VIAL/SYRINGE SQ SCH ×2 (05:15→13:42)
[2023-05-02] MEDS ORDERED: HEPARIN 1,000UNITS/ML 10ML VIAL (FOR RADIOLOGY & DIALYSIS ONLY) XX SCH (06:00)
[2023-05-02] MEDS ORDERED: SODIUM CHLORIDE 0.9% 1000ML IV PRN (06:00)
[2023-05-02 07:19] VITALS: BP 139/67; TEMP 98; O2SAT 94
[2023-05-02] MEDS: TIOTROPIUM INHALER/CAPSULE (SPIRIVA) INH SCH (08:15)
[2023-05-02] MEDS: SYMBICORT 160/4.5MCG INHALER 6GM INH SCH (08:15)
[2023-05-02] MEDS: LIDOCAINE 5% (LIDODERM) PATCH TOP SCH (09:07)
[2023-05-02] MEDS: LOSARTAN 25 MG TAB PO SCH (09:08)
[2023-05-02] MEDS: VENLAFAXINE **XR** 75MG CAPSULE PO SCH (09:08)
[2023-05-02] MEDS: DOXYCYCLINE HYCLATE 100MG TABLET PO SCH (09:08)
[2023-05-02] MEDS: ACETAMINOPHEN TAB 650MG DOSE (2X325MG) PO PRN (09:08)
[2023-05-02] MEDS: **hydrALAZINE HCL** 25 MG TAB PO SCH ×2 (09:08→15:27)
[2023-05-02] MEDS: busPIRone 5 MG TAB PO SCH (09:08)
[2023-05-02] MEDS: LACTOBACILLUS ACIDOPHILUS CAP (BACID) PO SCH ×2 (09:09→13:41)
[2023-05-02] MEDS: (RENVELA) SEVELAMER **CARBONate** 800 MG TAB PO SCH ×2 (09:09→13:41)
[2023-05-02] MEDS ORDERED: DARBEPOETIN 300MCG/0.6ML *DIALYSIS* SYRINGE IV SCH (09:25)
[2023-05-02 09:35] LABS: CK-MB VALUE MASS < 1.0 NG/ML (<3.6)
[2023-05-02 09:36] LABS: CPK CREATINE PHOSPHOKINASE 39 U/L (34-145); MB/CK RELATIVE INDEX 2.56 (< OR =4)
[2023-05-02] MEDS: CINACALCET 30 MG TAB (SENSIPAR) PO SCH (09:38)
[2023-05-02] MEDS ORDERED: CEFDINIR 300 MG CAP (OMNICEF) PO ONE (10:00)
[2023-05-02] MEDS ORDERED: DARBEPOETIN 100MCG/0.5ML *DIALYSIS* SYRINGE IV SCH (10:40)
[2023-05-02] MEDS ORDERED: DARBEPOETIN 200MCG/0.4ML *DIALYSIS* SYRINGE IV SCH (10:40)
[2023-05-02 11:47] LABS: CK-MB VALUE MASS < 1.0 NG/ML (<3.6); CPK CREATINE PHOSPHOKINASE 36 U/L (34-145); MB/CK RELATIVE INDEX 2.77 (< OR =4)
[2023-05-02 12:04] LABS: HEPATITIS B CORE ANTIBODY IGM NEGATIVE (NEGATIVE); HEPATITIS C VIRUS ABY INDEX 0.04 INDEX (<0.8)
[2023-05-02 12:09] LABS: HEPATITIS B SURFACE ANTIBODY POSITIVE (POSITIVE)
[2023-05-02] MEDS ORDERED: ISOVUE-370 76% 100ML VIAL As Ordered ONE (14:11)
[2023-05-02 15:27] VITALS: BP 141/62
[2023-05-02] MEDS ORDERED: RISATAB3 PO (15:36)
[2023-05-02] MEDS ORDERED: CEFD300CAP PO (15:36)
[2023-05-02] MEDS ORDERED: DOXY100T PO (15:36)
[2023-05-02] MEDS ORDERED: cefTRIAXone SOD 1 GM in D5W MINI-BAG PLUS 50 ML IV SCH (16:00)
[2023-05-02] MEDS ORDERED: CEFDINIR 300 MG CAP (OMNICEF) PO SCH (21:00)
[2023-05-03] MEDS ORDERED: CEFDINIR 300 MG CAP (OMNICEF) PO SCH (09:00)
== END 2023-05-02 17:47 | disposition home or self-care (01) | DRG 194 ==
LOC: M ED 14:18 → M ED INP 14:19 → OBSVTOIN 21:58 → ENRESERV 22:57 → M PCU 05-01 00:15
PROVIDERS: ADMIT Internal Medicine; ATTEND Internal Medicine
DX: J81.1 Chronic pulmonary edema (principal); U07.1 COVID-19; J96.21 Acute and chronic respiratory failure with hypoxia; J15.9 Unspecified bacterial pneumonia; I13.2 Hypertensive heart and chronic kidney disease with heart failure and with stage 5 chronic kidney disease, or end stage renal disease; J12.9 Viral pneumonia, unspecified; N18.6 End stage renal disease; E11.22 Type 2 diabetes mellitus with diabetic chronic kidney disease; I27.20 Pulmonary hypertension, unspecified; E11.649 Type 2 diabetes mellitus with hypoglycemia without coma; E11.42 Type 2 diabetes mellitus with diabetic polyneuropathy; Z99.81 Dependence on supplemental oxygen; J43.9 Emphysema, unspecified; J44.0 Chronic obstructive pulmonary disease with (acute) lower respiratory infection; D63.1 Anemia in chronic kidney disease; E03.9 Hypothyroidism, unspecified; F32.A Depression, unspecified; E21.1 Secondary hyperparathyroidism, not elsewhere classified; E78.00 Pure hypercholesterolemia, unspecified; G89.29 Other chronic pain; Z79.4 Long term (current) use of insulin; Z79.890 Hormone replacement therapy; Z79.899 Other long term (current) drug therapy; Z88.1 Allergy status to other antibiotic agents; Z88.2 Allergy status to sulfonamides; Z99.2 Dependence on renal dialysis; Z88.8 Allergy status to other drugs, medicaments and biological substances; Z90.49 Acquired absence of other specified parts of digestive tract; Z87.891 Personal history of nicotine dependence; I50.22 Chronic systolic (congestive) heart failure

== ENCOUNTER 2023-05-03 17:42 | Inpatient (IN) | payer OTHER ==
[~2023-05-03] VITALS: Ht 170.2 cm; Wt 99.2 kg
[~2023-05-03 17:42] MED LIST changes: +ACET1TAB55 PO; +BUSP5TA PO; +DOXY100T PO; +LOSA25TA13 PO; +RISATAB3 PO; +TOUJ300I2 SC; +TRAZ-257 PO; +TRAZ1TAB10 PO
[2023-05-03] MEDS ORDERED: traZODone 100 MG TAB PO SCH (21:00)
[2023-05-03] MEDS ORDERED: LORazepam 2 MG/ML 1ML VIAL IM STA (21:12)
[2023-05-03 21:32] LABS: VENOUS BASE EXCESS 2.6 (-2.0-2.0); VENOUS HCO3 27.3 MMOL/L (23.0-27.0); VENOUS PARTIAL PRESSURE CO2 42.8 mmHg (38.0-50.0); VENOUS PARTIAL PRESSURE O2 38.3 mmHg (30.0-50.0); VENOUS PH 7.423 UNITS (7.330-7.430); VENOUS STANDARD HCO3 26.3 MMOL/L; VENOUS TOTAL CO2 28.6 MMOL/L (24.0-28.0)
[2023-05-03 21:37] LABS: BASO % 0.2 % (0.0-1.0); EOS % 0.3 % (0.0-3.0); HEMATOCRIT 30.8 % (36.0-47.0); HEMOGLOBIN 9.8 g/dl (12.0-15.5); LYMPH # 0.4 10^3/uL (1.5-5.0); LYMPH % 6.6 % (24.0-44.0); MEAN CORPUSCULAR HEMOGLOBIN 28.5 pg (27.0-33.0); MEAN CORPUSCULAR HGB CONC 31.8 g/dl (32.0-36.5); MEAN CORPUSCULAR VOLUME 89.5 fl (80.0-96.0); MONO # 0.6 10^3/uL (0.0-0.8); MONO % 8.9 % (2.0-8.0); NEUTROPHILS # 5.1 10^3/uL (1.5-8.5); NEUTROPHILS % 83.4 % (36.0-66.0); PLATELET COUNT, AUTOMATED 187 10^3/uL (150-450); RED BLOOD COUNT 3.44 10^6/uL (4.00-5.40); WHITE BLOOD COUNT 6.2 10^3/uL (4.0-10.0)
[2023-05-03 21:48] LABS: INR 1.03; PROTHROMBIN TIME 13.2 SECONDS (12.5-14.5)
[2023-05-03 21:49] LABS: PARTIAL THROMBOPLASTIN TIME 41.3 SECONDS (24.8-34.2)
[2023-05-03 22:01] LABS: CK-MB VALUE MASS < 1.0 NG/ML (<3.6); LIPASE 74 U/L (12-53)
[2023-05-03 22:03] LABS: ALBUMIN 2.8 G/DL (3.2-5.2); ALKALINE PHOSPHATASE 84 U/L (46-116); ALT/SGPT 17 U/L (7.0-40); AST/SGOT 25 U/L (<34); BILIRUBIN,DIRECT 0.1 MG/DL (<0.4); BILIRUBIN,TOTAL 0.2 MG/DL (0.3-1.2); BLOOD UREA NITROGEN 23 MG/DL (9-23); CALCIUM LEVEL 8.9 MG/DL (8.3-10.6); CARBON DIOXIDE LEVEL 26 MMOL/L (20-31); CHLORIDE LEVEL 94 MMOL/L (98-107); CPK CREATINE PHOSPHOKINASE 36 U/L (34-145); CREATININE FOR GFR 6.51 MG/DL (0.55-1.30); GLOMERULAR FILTRATION RATE 6.9 (>45); GLUCOSE, FASTING 97 MG/DL (74-106); MB/CK RELATIVE INDEX 2.77 (< OR =4); POTASSIUM SERUM 4.3 MMOL/L (3.5-5.1); SODIUM LEVEL 132 MMOL/L (136-145)
[2023-05-03 22:05] LABS: FREE T4 1.29 NG/DL (0.89-1.76)
[2023-05-03] MEDS ORDERED: LORazepam 2 MG/ML 1ML VIAL IV STA (22:33)
[2023-05-03 23:45] LABS: CK-MB VALUE MASS < 1.0 NG/ML (<3.6)
[2023-05-03 23:46] LABS: CPK CREATINE PHOSPHOKINASE 39 U/L (34-145); MB/CK RELATIVE INDEX 2.56 (< OR =4)
[2023-05-04] MEDS ORDERED: ACETAMINOPHEN *IV* 1,000 MG in IV 1 EA IV ONE (00:10)
[2023-05-04] MEDS ORDERED: HOME MED LIST COMPLETE! XX SCH (01:30)
[2023-05-04] MEDS ORDERED: MIRALAX *UNIT DOSE* 17GM PACKET PO PRN (01:40)
[2023-05-04] MEDS ORDERED: FLUTICASONE PROP 0.05% NASAL SPRAY 16 GM (FLONASE) NARES PRN (01:40)
[2023-05-04] MEDS ORDERED: ACETAMINOPHEN TAB 650MG DOSE (2X325MG) PO PRN (01:40)
[2023-05-04] MEDS ORDERED: SENOKOT S TAB PO PRN (01:40)
[2023-05-04] MEDS ORDERED: ALBUTEROL 90 MCG/ACT 8GM HFA INHALER INH PRN (01:40)
[2023-05-04] MEDS ORDERED: FUROSEMIDE 40MG/4ML VIAL IV ONE (02:00)
[2023-05-04] MEDS ORDERED: DEXTROSE 50% 50ML SYRINGE IV PRN (02:10)
[2023-05-04] MEDS ORDERED: GLUCOSE 4GM CHEW TABLET PO PRN (02:10)
[2023-05-04] MEDS ORDERED: GLUCAGON INJ 1MG VIAL SC PRN (02:10)
[2023-05-04 02:58] LABS: INR 1.07; PROTHROMBIN TIME 13.6 SECONDS (12.5-14.5)
[2023-05-04 02:59] LABS: PARTIAL THROMBOPLASTIN TIME 33.9 SECONDS (24.8-34.2)
[2023-05-04] MEDS ORDERED: CEFDINIR 300 MG CAP (OMNICEF) PO SCH (03:00)
[2023-05-04 03:06] LABS: C REACTIVE PROTEIN QUANTITATIV 4.4 MG/DL (<1.0)
[2023-05-04 03:08] LABS: D-DIMER QUANT 3.3 ug/mL (<0.5)
[2023-05-04 03:11] LABS: FERRITIN 1021.6 NG/ML (7.3-270.7)
[2023-05-04 03:22] LABS: PROCALCITONIN 1.03 ng/ml
[2023-05-04 04:10] VITALS: BP 150/74; TEMP 97.6; O2SAT 94
[2023-05-04 04:24] VITALS: O2SAT 95
[2023-05-04] MEDS: LEVOTHYROXINE 150MCG TABLET (0.15MG) PO SCH ×2 (06:00→06:43)
[2023-05-04] MEDS: LEVOTHYROXINE 25MCG TABLET (0.025MG) PO SCH ×2 (06:00→06:43)
[2023-05-04] MEDS: HEPARIN SOD (PORCINE) 5000UNITS/ML 1ML VIAL/SYRINGE SQ SCH ×3 (06:26→21:40)
[2023-05-04] MEDS: DOXYCYCLINE HYCLATE 100MG TABLET PO SCH ×2 (06:42→18:35)
[2023-05-04] MEDS: INSULIN LISPRO (NovoLOG) PER UNIT SC SCH ×3 (07:30→18:37)
[2023-05-04 07:48] LABS: BASO % 0.2 % (0.0-1.0); EOS % 0.3 % (0.0-3.0); HEMOGLOBIN 8.9 g/dl (12.0-15.5); LYMPH # 0.4 10^3/uL (1.5-5.0); LYMPH % 7.7 % (24.0-44.0); MEAN CORPUSCULAR HEMOGLOBIN 28.8 pg (27.0-33.0); MEAN CORPUSCULAR HGB CONC 31.8 g/dl (32.0-36.5); MEAN CORPUSCULAR VOLUME 90.6 fl (80.0-96.0); MONO # 0.7 10^3/uL (0.0-0.8); MONO % 11.5 % (2.0-8.0); NEUTROPHILS # 4.6 10^3/uL (1.5-8.5); NEUTROPHILS % 79.6 % (36.0-66.0); PLATELET COUNT, AUTOMATED 155 10^3/uL (150-450); RED BLOOD COUNT 3.09 10^6/uL (4.00-5.40); WHITE BLOOD COUNT 5.7 10^3/uL (4.0-10.0)
[2023-05-04 08:00] VITALS: BP 134/72; TEMP 98.6; O2SAT 95
[2023-05-04] MEDS ORDERED: BUDESONIDE 0.5 MG/2 ML INHALATION SUSPENSION INH SCH (08:00)
[2023-05-04] MEDS: BUDESONIDE 180MCG INHALER (PULMICORT FLEXHALER) INH SCH ×2 (08:00→20:00)
[2023-05-04] MEDS ORDERED: IPRATROPIUM 0.5MG/ALBUTEROL 2.5MG INH SOL UD 3ML (DUONEB) NEB SCH (08:00)
[2023-05-04] MEDS ORDERED: ISOVUE-370 76% 100ML VIAL As Ordered ONE (08:20)
[2023-05-04] MEDS ORDERED: BARICITINIB 2MG TABLET (OLUMIANT) FOR EUA PO SCH (09:00)
[2023-05-04 09:20] LABS: ALBUMIN 2.4 G/DL (3.2-5.2); ALKALINE PHOSPHATASE 76 U/L (46-116); ALT/SGPT < 9 U/L (7.0-40); AST/SGOT 26 U/L (<34); BILIRUBIN,TOTAL < 0.2 MG/DL (0.3-1.2); BLOOD UREA NITROGEN 24 MG/DL (9-23); CALCIUM LEVEL 8.7 MG/DL (8.3-10.6); CARBON DIOXIDE LEVEL 22 MMOL/L (20-31); CHLORIDE LEVEL 96 MMOL/L (98-107); CREATININE FOR GFR 7.01 MG/DL (0.55-1.30); GLOMERULAR FILTRATION RATE 6.3 (>45); GLUCOSE, FASTING 77 MG/DL (74-106); MAGNESIUM LEVEL 1.9 MG/DL (1.8-2.4); POTASSIUM SERUM 4.2 MMOL/L (3.5-5.1); SODIUM LEVEL 130 MMOL/L (136-145); TOTAL PROTEIN 6.1 G/DL (5.7-8.2)
[2023-05-04] MEDS: CINACALCET 30 MG TAB (SENSIPAR) PO SCH (10:35)
[2023-05-04] MEDS: (RENVELA) SEVELAMER **CARBONate** 800 MG TAB PO SCH ×3 (10:35→18:35)
[2023-05-04] MEDS: LACTOBACILLUS ACIDOPHILUS CAP (BACID) PO SCH ×3 (10:35→18:35)
[2023-05-04] MEDS: LOSARTAN 25 MG TAB PO SCH (10:36)
[2023-05-04] MEDS: VENLAFAXINE **XR** 75MG CAPSULE PO SCH (10:36)
[2023-05-04] MEDS: **hydrALAZINE HCL** 25 MG TAB PO SCH ×3 (10:36→21:41)
[2023-05-04] MEDS: busPIRone 5 MG TAB PO SCH ×2 (10:37→21:41)
[2023-05-04] MEDS ORDERED: SODIUM CHLORIDE 0.9% 1000ML IV PRN (11:15)
[2023-05-04] MEDS ORDERED: HEPARIN 1,000UNITS/ML 10ML VIAL (FOR RADIOLOGY & DIALYSIS ONLY) IV PRN (11:15)
[2023-05-04] MEDS ORDERED: LIDOCAINE 1% SDV 5ML VIAL SC PRN (11:15)
[2023-05-04] MEDS: COMBIVENT RESPIMAT 100-20MCG INHALER 4GM INH SCH ×4 (11:59→23:36)
[2023-05-04] MEDS ORDERED: HEPARIN 1,000UNITS/ML 10ML VIAL (FOR RADIOLOGY & DIALYSIS ONLY) XX SCH (12:00)
[2023-05-04] MEDS ORDERED: cefTRIAXone SOD 1 GM in D5W MINI-BAG PLUS 50 ML IV ONE (13:00)
[2023-05-04] MEDS ORDERED: cefTRIAXone SOD 1 GM in D5W MINI-BAG PLUS 50 ML IV SCH (13:00)
[2023-05-04 16:00] VITALS: BP 151/73; TEMP 97.5; O2SAT 95; O2SAT 96
[2023-05-04 19:30] VITALS: BP 142/78; TEMP 97.1; O2SAT 92
[2023-05-04 20:00] VITALS: O2SAT 92
[2023-05-04] MEDS ORDERED: METOPROLOL SUCC (TopROL XL) 50MG **XL** TAB PO SCH (21:00)
[2023-05-04] MEDS ORDERED: ATORVASTATIN 10 MG TAB PO SCH (21:00)
[2023-05-04] MEDS ORDERED: INSULIN LISPRO (NovoLOG) PER UNIT SC SCH (21:00)
[2023-05-05] VITALS (7 sets, daily range): BP systolic 137–164; BP diastolic 72–90; TEMP 97.1–98.2; O2SAT 93–96
[2023-05-05] MEDS ORDERED: traMADol 50 MG TAB PO ONE ×2 (01:00→03:00)
[2023-05-05] MEDS: COMBIVENT RESPIMAT 100-20MCG INHALER 4GM INH SCH ×2 (02:46→08:17)
[2023-05-05] MEDS ORDERED: LIDOCAINE 5% (LIDODERM) PATCH TD ONE (03:00)
[2023-05-05 05:24] LABS: HEMATOCRIT 28.3 % (36.0-47.0); HEMOGLOBIN 8.9 g/dl (12.0-15.5); MEAN CORPUSCULAR HEMOGLOBIN 28.1 pg (27.0-33.0); MEAN CORPUSCULAR HGB CONC 31.4 g/dl (32.0-36.5); MEAN CORPUSCULAR VOLUME 89.3 fl (80.0-96.0); PLATELET COUNT, AUTOMATED 169 10^3/uL (150-450); RED BLOOD COUNT 3.17 10^6/uL (4.00-5.40); WHITE BLOOD COUNT 4.1 10^3/uL (4.0-10.0)
[2023-05-05 05:49] LABS: CALCIUM LEVEL 8.7 MG/DL (8.3-10.6); CREATININE FOR GFR 5.04 MG/DL (0.55-1.30); GLOMERULAR FILTRATION RATE 9.3 (>45); MAGNESIUM LEVEL 1.9 MG/DL (1.8-2.4); POTASSIUM SERUM 4.2 MMOL/L (3.5-5.1)
[2023-05-05 06:29] LABS: ANISOCYTOSIS 1+; ATYPICAL LYMPH 2 % (0-5); LYMPHOCYTES 8 % (16-44); MONOCYTES 5 % (0-5); NEUTROPHILS 85 % (28-66); PLATELET ESTIMATE DECREASED (NORMAL)
[2023-05-05 06:30] LABS: HYPOCHROMASIA 1+; MICROCYTOSIS 1+
[2023-05-05] MEDS: LEVOTHYROXINE 25MCG TABLET (0.025MG) PO SCH (06:30)
[2023-05-05] MEDS: LEVOTHYROXINE 150MCG TABLET (0.15MG) PO SCH (06:30)
[2023-05-05] MEDS: HEPARIN SOD (PORCINE) 5000UNITS/ML 1ML VIAL/SYRINGE SQ SCH (06:30)
[2023-05-05] MEDS: DOXYCYCLINE HYCLATE 100MG TABLET PO SCH (06:30)
[2023-05-05] MEDS: BUDESONIDE 180MCG INHALER (PULMICORT FLEXHALER) INH SCH (08:00)
[2023-05-05] MEDS: LACTOBACILLUS ACIDOPHILUS CAP (BACID) PO SCH (08:26)
[2023-05-05] MEDS: busPIRone 5 MG TAB PO SCH (08:26)
[2023-05-05] MEDS: (RENVELA) SEVELAMER **CARBONate** 800 MG TAB PO SCH (08:26)
[2023-05-05] MEDS: VENLAFAXINE **XR** 75MG CAPSULE PO SCH (08:26)
[2023-05-05] MEDS: INSULIN LISPRO (NovoLOG) PER UNIT SC SCH (08:26)
[2023-05-05] MEDS: LOSARTAN 25 MG TAB PO SCH (08:27)
[2023-05-05] MEDS: **hydrALAZINE HCL** 25 MG TAB PO SCH (08:27)
[2023-05-05] MEDS: CINACALCET 30 MG TAB (SENSIPAR) PO SCH (08:38)
[2023-05-05] MEDS ORDERED: CEFDINIR 300 MG CAP (OMNICEF) PO ONE (09:00)
[2023-05-05] MEDS ORDERED: FLUT1BLS8 INH (12:11)
[2023-05-05] MEDS ORDERED: BUDE0.5S6 INH (12:11)
[2023-05-05] MEDS ORDERED: VENTAER PO (12:11)
== END 2023-05-05 13:00 | disposition home health service (06) | DRG 137 ==
LOC: M ED 17:42 → M ED INP 05-04 01:31 → ENRESERV 05-04 02:26 → M PCU 05-04 04:09
PROVIDERS: ADMIT Internal Medicine; ATTEND Internal Medicine
PROC: 3E0333Z Introduction of Anti-inflammatory into Peripheral Vein, Percutaneous Approach (ICD-10-PCS; principal; 2023-05-04)
PROC: 5A1D70Z Performance of Urinary Filtration, Intermittent, Less than 6 Hours Per Day (ICD-10-PCS; 2023-05-04)
DX: U07.1 COVID-19 (principal); J96.21 Acute and chronic respiratory failure with hypoxia; I50.43 Acute on chronic combined systolic (congestive) and diastolic (congestive) heart failure; G93.41 Metabolic encephalopathy; J15.9 Unspecified bacterial pneumonia; N25.81 Secondary hyperparathyroidism of renal origin; E11.22 Type 2 diabetes mellitus with diabetic chronic kidney disease; N18.6 End stage renal disease; E11.42 Type 2 diabetes mellitus with diabetic polyneuropathy; I13.2 Hypertensive heart and chronic kidney disease with heart failure and with stage 5 chronic kidney disease, or end stage renal disease; Z99.81 Dependence on supplemental oxygen; E87.1 Hypo-osmolality and hyponatremia; E03.9 Hypothyroidism, unspecified; J44.0 Chronic obstructive pulmonary disease with (acute) lower respiratory infection; I35.0 Nonrheumatic aortic (valve) stenosis; D63.1 Anemia in chronic kidney disease; F41.9 Anxiety disorder, unspecified; Z79.2 Long term (current) use of antibiotics; Z79.4 Long term (current) use of insulin; Z79.890 Hormone replacement therapy; Z79.899 Other long term (current) drug therapy; Z88.2 Allergy status to sulfonamides; Z88.5 Allergy status to narcotic agent; Z88.8 Allergy status to other drugs, medicaments and biological substances; Z99.2 Dependence on renal dialysis; Z90.49 Acquired absence of other specified parts of digestive tract; Z87.891 Personal history of nicotine dependence; G89.29 Other chronic pain; M54.9 Dorsalgia, unspecified; G47.00 Insomnia, unspecified; F32.A Depression, unspecified

== ENCOUNTER 2023-05-05 16:10 | Emergency (ER) | payer OTHER ==
[2023-05-05 18:00] VITALS: BP 171/82; O2SAT 96
== END 2023-05-05 18:55 | disposition left against medical advice (07) ==
LOC: M ED 16:10
DX: R07.9 Chest pain, unspecified (principal); R06.02 Shortness of breath; I50.20 Unspecified systolic (congestive) heart failure; J45.909 Unspecified asthma, uncomplicated; J44.9 Chronic obstructive pulmonary disease, unspecified; I12.9 Hypertensive chronic kidney disease with stage 1 through stage 4 chronic kidney disease, or unspecified chronic kidney disease; N18.9 Chronic kidney disease, unspecified; K21.9 Gastro-esophageal reflux disease without esophagitis; E03.9 Hypothyroidism, unspecified; Z88.2 Allergy status to sulfonamides; Z88.8 Allergy status to other drugs, medicaments and biological substances; Z79.899 Other long term (current) drug therapy; Z79.51 Long term (current) use of inhaled steroids

== ENCOUNTER 2023-05-05 23:58 | Inpatient (IN) | payer OTHER ==
[~2023-05-05] VITALS: Ht 165.1 cm; Wt 98.5 kg
[2023-05-06 00:59] LABS: BASO % 0.1 % (0.0-1.0); HEMATOCRIT 29.6 % (36.0-47.0); HEMOGLOBIN 9.5 g/dl (12.0-15.5); LYMPH # 0.3 10^3/uL (1.5-5.0); LYMPH % 4.2 % (24.0-44.0); MEAN CORPUSCULAR HEMOGLOBIN 28.2 pg (27.0-33.0); MEAN CORPUSCULAR HGB CONC 32.1 g/dl (32.0-36.5); MEAN CORPUSCULAR VOLUME 87.8 fl (80.0-96.0); MONO # 0.6 10^3/uL (0.0-0.8); MONO % 7.5 % (2.0-8.0); NEUTROPHILS # 6.4 10^3/uL (1.5-8.5); NEUTROPHILS % 87.4 % (36.0-66.0); PLATELET COUNT, AUTOMATED 202 10^3/uL (150-450); RED BLOOD COUNT 3.37 10^6/uL (4.00-5.40); WHITE BLOOD COUNT 7.3 10^3/uL (4.0-10.0)
[2023-05-06 01:20] LABS: CK-MB VALUE MASS < 1.0 NG/ML (<3.6)
[2023-05-06 01:21] LABS: ETHYL ALCOHOL (ETHANOL) < 0.003 % (0.000-0.010)
[2023-05-06 01:23] LABS: CPK CREATINE PHOSPHOKINASE 33 U/L (34-145); MB/CK RELATIVE INDEX 3.03 (< OR =4)
[2023-05-06 01:25] LABS: THYROID STIMULATING HORMONE 6.688 uIU/ML (0.55-4.78)
[2023-05-06 01:26] LABS: ALBUMIN 2.8 G/DL (3.2-5.2); ALKALINE PHOSPHATASE 78 U/L (46-116); ALT/SGPT 10 U/L (7.0-40); AST/SGOT 24 U/L (<34); BILIRUBIN,DIRECT 0.1 MG/DL (<0.4); BILIRUBIN,TOTAL 0.3 MG/DL (0.3-1.2); BLOOD UREA NITROGEN 28 MG/DL (9-23); CALCIUM LEVEL 8.3 MG/DL (8.3-10.6); CARBON DIOXIDE LEVEL 21 MMOL/L (20-31); CHLORIDE LEVEL 93 MMOL/L (98-107); GLOMERULAR FILTRATION RATE 7.2 (>45); GLUCOSE, FASTING 143 MG/DL (74-106); POTASSIUM SERUM 4.4 MMOL/L (3.5-5.1); SODIUM LEVEL 127 MMOL/L (136-145); TOTAL PROTEIN 6.8 G/DL (5.7-8.2)
[2023-05-06 02:00] LABS: RSV AMPLIFICATION NEGATIVE (NEGATIVE)
[2023-05-06] MEDS ORDERED: HOME MED LIST COMPLETE! XX SCH (03:25)
[2023-05-06] MEDS ORDERED: GLUCAGON INJ 1MG VIAL SC PRN (04:20)
[2023-05-06] MEDS ORDERED: ALBUTEROL SULFATE 2.5MG/0.5ML INH NEB SOLN NEB PRN (04:20)
[2023-05-06] MEDS ORDERED: DEXTROSE 50% 50ML SYRINGE IV PRN (04:20)
[2023-05-06] MEDS ORDERED: GLUCOSE 4GM CHEW TABLET PO PRN (04:20)
[2023-05-06] MEDS ORDERED: OLANZapine ORAL DISINTEGRATING TAB 5MG PO ONE (05:00)
[2023-05-06] MEDS: METOPROLOL SUCC (TopROL XL) 50MG **XL** TAB PO SCH ×2 (05:01→20:43)
[2023-05-06] MEDS: LEVOTHYROXINE 150MCG TABLET (0.15MG) PO SCH (06:00)
[2023-05-06] MEDS: HEPARIN SOD (PORCINE) 5000UNITS/ML 1ML VIAL/SYRINGE SQ SCH ×3 (06:00→22:32)
[2023-05-06] MEDS: LEVOTHYROXINE 25MCG TABLET (0.025MG) PO SCH (06:00)
[2023-05-06] MEDS ORDERED: ALBUTEROL 90 MCG/ACT 8GM HFA INHALER INH PRN (06:55)
[2023-05-06 07:30] VITALS: BP 142/72; TEMP 98.6; O2SAT 96
[2023-05-06] MEDS: IPRATROPIUM 0.5MG/ALBUTEROL 2.5MG INH SOL UD 3ML (DUONEB) NEB SCH ×2 (07:54→13:38)
[2023-05-06] MEDS ORDERED: IPRATROPIUM 0.5MG/ALBUTEROL 2.5MG INH SOL UD 3ML (DUONEB) NEB SCH (08:00)
[2023-05-06] MEDS ORDERED: BUDESONIDE 0.5 MG/2 ML INHALATION SUSPENSION INH SCH (08:00)
[2023-05-06] MEDS: busPIRone 5 MG TAB PO SCH ×2 (08:30→20:43)
[2023-05-06] MEDS: LOSARTAN 25 MG TAB PO SCH (08:30)
[2023-05-06] MEDS: **hydrALAZINE HCL** 25 MG TAB PO SCH ×3 (08:30→20:43)
[2023-05-06] MEDS: CINACALCET 30 MG TAB (SENSIPAR) PO SCH (08:30)
[2023-05-06] MEDS: VENLAFAXINE **XR** 75MG CAPSULE PO SCH (08:31)
[2023-05-06] MEDS: INSULIN LISPRO (NovoLOG) PER UNIT SC SCH ×4 (08:31→20:44)
[2023-05-06] MEDS: (RENVELA) SEVELAMER **CARBONate** 800 MG TAB PO SCH ×4 (08:31→16:56)
[2023-05-06] MEDS ORDERED: DARBEPOETIN 100MCG/0.5ML *DIALYSIS* SYRINGE IV SCH (09:00)
[2023-05-06] MEDS ORDERED: ENOXAPARIN 40MG/0.4ML SYRINGE (J1650 PER 10MG) SC SCH (09:00)
[2023-05-06] MEDS ORDERED: SODIUM CHLORIDE 0.9% 1000ML IV PRN (09:20)
[2023-05-06] MEDS ORDERED: LIDOCAINE 1% SDV 5ML VIAL SC PRN (09:20)
[2023-05-06] MEDS ORDERED: HEPARIN 1,000UNITS/ML 10ML VIAL (FOR RADIOLOGY & DIALYSIS ONLY) XX SCH (09:20)
[2023-05-06] MEDS ORDERED: HEPARIN 1,000UNITS/ML 10ML VIAL (FOR RADIOLOGY & DIALYSIS ONLY) IV PRN (09:20)
[2023-05-06 11:25] VITALS: BP 104/56; TEMP 98.7; O2SAT 100
[2023-05-06] MEDS: LACTOBACILLUS ACIDOPHILUS CAP (BACID) PO SCH ×3 (13:09→20:42)
[2023-05-06 13:35] VITALS: BP 133/66; TEMP 96.6; O2SAT 97
[2023-05-06] MEDS ORDERED: ONDANSETRON 4MG 2ML VIAL IV ONE (14:00)
[2023-05-06] MEDS ORDERED: LOPERAMIDE 2 MG CAPLET PO PRN (15:55)
[2023-05-06 16:43] VITALS: BP 125/62; TEMP 97.4; O2SAT 91
[2023-05-06 19:19] VITALS: BP 119/59; TEMP 97.5; O2SAT 90
[2023-05-06] MEDS: BUDESONIDE 180MCG INHALER (PULMICORT FLEXHALER) INH SCH (20:00)
[2023-05-06] MEDS: COMBIVENT RESPIMAT 100-20MCG INHALER 4GM INH SCH (20:10)
[2023-05-06] MEDS: ADVAIR HFA 230/21MCG INHALER INH SCH (20:10)
[2023-05-06] MEDS: QUEtiapine FUMARATE 25 MG TAB PO SCH (20:43)
[2023-05-06] MEDS: ATORVASTATIN 10 MG TAB PO SCH (20:43)
[2023-05-06] MEDS ORDERED: OLANZapine ORAL DISINTEGRATING TAB 5MG PO SCH (21:00)
[2023-05-07] VITALS (7 sets, daily range): BP systolic 113–149; BP diastolic 52–70; TEMP 98.2–101.7; O2SAT 85–98
[2023-05-07] MEDS: COMBIVENT RESPIMAT 100-20MCG INHALER 4GM INH SCH ×4 (02:52→19:32)
[2023-05-07] MEDS: ACETAMINOPHEN TAB 650MG DOSE (2X325MG) PO PRN ×2 (03:21→18:00)
[2023-05-07 04:58] LABS: BASO % 0.2 % (0.0-1.0); EOS % 0.2 % (0.0-3.0); HEMATOCRIT 27.1 % (36.0-47.0); HEMOGLOBIN 8.8 g/dl (12.0-15.5); LYMPH # 0.3 10^3/uL (1.5-5.0); LYMPH % 6.9 % (24.0-44.0); MEAN CORPUSCULAR HEMOGLOBIN 28.1 pg (27.0-33.0); MEAN CORPUSCULAR HGB CONC 32.5 g/dl (32.0-36.5); MEAN CORPUSCULAR VOLUME 86.6 fl (80.0-96.0); MONO # 0.4 10^3/uL (0.0-0.8); MONO % 8.3 % (2.0-8.0); NEUTROPHILS # 4.1 10^3/uL (1.5-8.5); NEUTROPHILS % 83.8 % (36.0-66.0); PLATELET COUNT, AUTOMATED 198 10^3/uL (150-450); RED BLOOD COUNT 3.13 10^6/uL (4.00-5.40); WHITE BLOOD COUNT 4.9 10^3/uL (4.0-10.0)
[2023-05-07 05:27] LABS: ALBUMIN 2.4 G/DL (3.2-5.2); BILIRUBIN,TOTAL 0.3 MG/DL (0.3-1.2); CALCIUM LEVEL 7.8 MG/DL (8.3-10.6); CREATININE FOR GFR 8.41 MG/DL (0.55-1.30); GLOMERULAR FILTRATION RATE 5.1 (>45); MAGNESIUM LEVEL 1.9 MG/DL (1.8-2.4); POTASSIUM SERUM 4.5 MMOL/L (3.5-5.1); TOTAL PROTEIN 6.2 G/DL (5.7-8.2)
[2023-05-07] MEDS: LEVOTHYROXINE 150MCG TABLET (0.15MG) PO SCH (06:23)
[2023-05-07] MEDS: LEVOTHYROXINE 25MCG TABLET (0.025MG) PO SCH (06:23)
[2023-05-07] MEDS: HEPARIN SOD (PORCINE) 5000UNITS/ML 1ML VIAL/SYRINGE SQ SCH ×3 (06:23→21:46)
[2023-05-07] MEDS ORDERED: HEPARIN 1,000UNITS/ML 10ML VIAL (FOR RADIOLOGY & DIALYSIS ONLY) IV PRN (06:35)
[2023-05-07] MEDS ORDERED: SODIUM CHLORIDE 0.9% 1000ML IV PRN (06:35)
[2023-05-07] MEDS ORDERED: LIDOCAINE 1% SDV 5ML VIAL SC PRN (06:35)
[2023-05-07] MEDS ORDERED: HEPARIN 1,000UNITS/ML 10ML VIAL (FOR RADIOLOGY & DIALYSIS ONLY) XX SCH (06:35)
[2023-05-07] MEDS: INSULIN LISPRO (NovoLOG) PER UNIT SC SCH ×4 (07:30→21:00)
[2023-05-07] MEDS: BUDESONIDE 180MCG INHALER (PULMICORT FLEXHALER) INH SCH ×2 (08:28→19:32)
[2023-05-07] MEDS: ADVAIR HFA 230/21MCG INHALER INH SCH ×2 (08:28→19:32)
[2023-05-07] MEDS: **hydrALAZINE HCL** 25 MG TAB PO SCH ×3 (08:52→20:31)
[2023-05-07] MEDS: LACTOBACILLUS ACIDOPHILUS CAP (BACID) PO SCH ×4 (08:52→20:31)
[2023-05-07] MEDS: busPIRone 5 MG TAB PO SCH ×2 (08:52→20:31)
[2023-05-07] MEDS: VENLAFAXINE **XR** 75MG CAPSULE PO SCH (08:52)
[2023-05-07] MEDS: CINACALCET 30 MG TAB (SENSIPAR) PO SCH (08:53)
[2023-05-07] MEDS: LOSARTAN 25 MG TAB PO SCH (08:53)
[2023-05-07] MEDS: (RENVELA) SEVELAMER **CARBONate** 800 MG TAB PO SCH ×3 (08:53→16:53)
[2023-05-07] MEDS ORDERED: ONDANSETRON 4MG 2ML VIAL IV PRN (11:00)
[2023-05-07] MEDS: ATORVASTATIN 10 MG TAB PO SCH (20:31)
[2023-05-07] MEDS: QUEtiapine FUMARATE 25 MG TAB PO SCH (20:31)
[2023-05-07] MEDS: METOPROLOL SUCC (TopROL XL) 50MG **XL** TAB PO SCH (20:32)
[2023-05-07] MEDS ORDERED: LevoFLOXacin 750 MG TABLET PO ONE (21:00)
[2023-05-07 22:07] LABS: PROCALCITONIN 3.53 ng/ml
[2023-05-08 00:15] VITALS: BP 117/55; TEMP 98.7; O2SAT 98
[2023-05-08] MEDS: COMBIVENT RESPIMAT 100-20MCG INHALER 4GM INH SCH ×3 (01:47→14:00)
[2023-05-08 03:57] VITALS: BP 108/53; TEMP 100; O2SAT 98
[2023-05-08] MEDS ORDERED: LevoFLOXacin 750 MG TABLET PO SCH (06:00)
[2023-05-08] MEDS: HEPARIN SOD (PORCINE) 5000UNITS/ML 1ML VIAL/SYRINGE SQ SCH (06:38)
[2023-05-08] MEDS: LEVOTHYROXINE 150MCG TABLET (0.15MG) PO SCH (06:38)
[2023-05-08] MEDS: LEVOTHYROXINE 25MCG TABLET (0.025MG) PO SCH (06:38)
[2023-05-08] MEDS ORDERED: HEPARIN 1,000UNITS/ML 10ML VIAL (FOR RADIOLOGY & DIALYSIS ONLY) XX SCH (06:45)
[2023-05-08] MEDS ORDERED: LIDOCAINE 1% SDV 5ML VIAL SC PRN (06:45)
[2023-05-08] MEDS ORDERED: SODIUM CHLORIDE 0.9% 1000ML IV PRN (06:45)
[2023-05-08] MEDS ORDERED: HEPARIN 1,000UNITS/ML 10ML VIAL (FOR RADIOLOGY & DIALYSIS ONLY) IV PRN (06:45)
[2023-05-08 07:16] LABS: HEMATOCRIT 27.9 % (36.0-47.0); MEAN CORPUSCULAR HEMOGLOBIN 28.2 pg (27.0-33.0); MEAN CORPUSCULAR HGB CONC 32.3 g/dl (32.0-36.5); MEAN CORPUSCULAR VOLUME 87.5 fl (80.0-96.0); PLATELET COUNT, AUTOMATED 223 10^3/uL (150-450); RED BLOOD COUNT 3.19 10^6/uL (4.00-5.40); WHITE BLOOD COUNT 3.3 10^3/uL (4.0-10.0)
[2023-05-08] MEDS: INSULIN LISPRO (NovoLOG) PER UNIT SC SCH (07:30)
[2023-05-08 07:35] VITALS: BP 102/53; TEMP 98.6; O2SAT 95
[2023-05-08 07:41] LABS: ATYPICAL LYMPH 4 % (0-5); LYMPHOCYTES 11 % (16-44); MONOCYTES 9 % (0-5); NEUTROPHILS 76 % (28-66)
[2023-05-08] MEDS: LACTOBACILLUS ACIDOPHILUS CAP (BACID) PO SCH (07:41)
[2023-05-08] MEDS: (RENVELA) SEVELAMER **CARBONate** 800 MG TAB PO SCH (07:41)
[2023-05-08 07:42] LABS: ANISOCYTOSIS 2+; CK-MB VALUE MASS < 1.0 NG/ML (<3.6); HYPOCHROMASIA 1+; PLATELET ESTIMATE NORMAL (NORMAL); POLYCHROMASIA 1+
[2023-05-08 07:43] LABS: TEAR DROP CELLS 1+
[2023-05-08 07:44] LABS: ALBUMIN 2.4 G/DL (3.2-5.2); BILIRUBIN,TOTAL 0.3 MG/DL (0.3-1.2); CALCIUM LEVEL 8.1 MG/DL (8.3-10.6); CPK CREATINE PHOSPHOKINASE 35 U/L (34-145); CREATININE FOR GFR 5.91 MG/DL (0.55-1.30); GLOMERULAR FILTRATION RATE 7.7 (>45); MAGNESIUM LEVEL 1.9 MG/DL (1.8-2.4); MB/CK RELATIVE INDEX 2.85 (< OR =4); POTASSIUM SERUM 4.3 MMOL/L (3.5-5.1); TOTAL PROTEIN 6.5 G/DL (5.7-8.2)
[2023-05-08 07:45] VITALS: BP 102/53
[2023-05-08] MEDS: **hydrALAZINE HCL** 25 MG TAB PO SCH (07:45)
[2023-05-08] MEDS: LOSARTAN 25 MG TAB PO SCH (07:46)
[2023-05-08] MEDS: CINACALCET 30 MG TAB (SENSIPAR) PO SCH (07:54)
[2023-05-08] MEDS: busPIRone 5 MG TAB PO SCH (07:54)
[2023-05-08] MEDS: VENLAFAXINE **XR** 75MG CAPSULE PO SCH (07:54)
[2023-05-08] MEDS: BUDESONIDE 180MCG INHALER (PULMICORT FLEXHALER) INH SCH (08:05)
[2023-05-08] MEDS: ADVAIR HFA 230/21MCG INHALER INH SCH (08:05)
[2023-05-08] MEDS: ACETAMINOPHEN TAB 650MG DOSE (2X325MG) PO PRN (09:19)
[2023-05-08] MEDS ORDERED: LOPE2CA PO (11:55)
[2023-05-08] MEDS ORDERED: LEVO1TAB39 PO (11:55)
[2023-05-08] MEDS ORDERED: QUET1TAB17 PO (11:55)
[2023-05-08] MEDS ORDERED: RISATAB3 PO (11:55)
[2023-05-08 12:00] VITALS: BP 110/52; TEMP 98.6; O2SAT 95
[2023-05-09] MEDS ORDERED: LevoFLOXacin 500 MG TABLET PO SCH (18:00)
== END 2023-05-08 14:44 | disposition left against medical advice (07) | DRG 52 ==
LOC: M ED 23:58 → M ED INP 05-06 04:16 → ENRESERV 05-06 04:59 → M PCU 05-06 06:45
PROVIDERS: ADMIT Internal Medicine; ATTEND Internal Medicine
PROC: 5A1D70Z Performance of Urinary Filtration, Intermittent, Less than 6 Hours Per Day (ICD-10-PCS; principal; 2023-05-08)
DX: G93.41 Metabolic encephalopathy (principal); N18.6 End stage renal disease; I27.20 Pulmonary hypertension, unspecified; J44.9 Chronic obstructive pulmonary disease, unspecified; D63.1 Anemia in chronic kidney disease; E11.22 Type 2 diabetes mellitus with diabetic chronic kidney disease; I13.2 Hypertensive heart and chronic kidney disease with heart failure and with stage 5 chronic kidney disease, or end stage renal disease; E03.9 Hypothyroidism, unspecified; E87.1 Hypo-osmolality and hyponatremia; I50.33 Acute on chronic diastolic (congestive) heart failure; M54.9 Dorsalgia, unspecified; G89.29 Other chronic pain; F41.9 Anxiety disorder, unspecified; E83.39 Other disorders of phosphorus metabolism; N25.81 Secondary hyperparathyroidism of renal origin; E11.42 Type 2 diabetes mellitus with diabetic polyneuropathy; G47.00 Insomnia, unspecified; F17.200 Nicotine dependence, unspecified, uncomplicated; F32.A Depression, unspecified; J96.11 Chronic respiratory failure with hypoxia; U07.1 COVID-19; Z79.2 Long term (current) use of antibiotics; Z79.4 Long term (current) use of insulin; Z79.890 Hormone replacement therapy; Z79.899 Other long term (current) drug therapy; Z88.2 Allergy status to sulfonamides; Z88.6 Allergy status to analgesic agent; Z88.5 Allergy status to narcotic agent; Z88.8 Allergy status to other drugs, medicaments and biological substances; Z99.81 Dependence on supplemental oxygen; Z99.2 Dependence on renal dialysis

== ENCOUNTER 2023-05-08 17:25 | Emergency (ER) | payer OTHER ==
[~2023-05-08] VITALS: Ht 170.2 cm; Wt 98.5 kg
[~2023-05-08 17:25] MED LIST changes: +LOPE2CA PO; +QUET1TAB17 PO
[2023-05-08] MEDS ORDERED: ASPIRIN 81MG CHEW TABLET PO ONE (17:40)
[2023-05-08] MEDS ORDERED: NITROGLYCERIN 0.4MG SUBL TABLET SL PRN (18:15)
[2023-05-08] MEDS ORDERED: MORPHINE 4 MG/ML 1ML VIAL IV PRN (18:20)
[2023-05-08 18:23] VITALS: BP 129/97
[2023-05-08 18:26] LABS: HEMATOCRIT 29.3 % (36.0-47.0); HEMOGLOBIN 9.2 g/dl (12.0-15.5); MEAN CORPUSCULAR HEMOGLOBIN 27.5 pg (27.0-33.0); MEAN CORPUSCULAR HGB CONC 31.4 g/dl (32.0-36.5); MEAN CORPUSCULAR VOLUME 87.7 fl (80.0-96.0); PLATELET COUNT, AUTOMATED 223 10^3/uL (150-450); RED BLOOD COUNT 3.34 10^6/uL (4.00-5.40); WHITE BLOOD COUNT 3.5 10^3/uL (4.0-10.0)
[2023-05-08 18:38] LABS: INR 1.12
[2023-05-08 18:48] LABS: CK-MB VALUE MASS < 1.0 NG/ML (<3.6)
[2023-05-08 18:49] LABS: LIPASE 62 U/L (12-53)
[2023-05-08 18:51] LABS: CPK CREATINE PHOSPHOKINASE 30 U/L (34-145); MB/CK RELATIVE INDEX 3.33 (< OR =4)
[2023-05-08 18:52] LABS: FREE T4 1.49 NG/DL (0.89-1.76); THYROID STIMULATING HORMONE 4.909 uIU/ML (0.55-4.78)
[2023-05-08 18:56] LABS: ANISOCYTOSIS 2+; ATYPICAL LYMPH 1 % (0-5); LYMPHOCYTES 14 % (16-44); MONOCYTES 8 % (0-5); NEUTROPHILS 76 % (28-66); PLATELET ESTIMATE NORMAL (NORMAL)
[2023-05-08 18:58] LABS: ALBUMIN 2.6 G/DL (3.2-5.2); ALKALINE PHOSPHATASE 69 U/L (46-116); ALT/SGPT 11 U/L (7.0-40); AST/SGOT 27 U/L (<34); BILIRUBIN,DIRECT 0.2 MG/DL (<0.4); BILIRUBIN,TOTAL 0.3 MG/DL (0.3-1.2); BLOOD UREA NITROGEN 12 MG/DL (9-23); CALCIUM LEVEL 8.6 MG/DL (8.3-10.6); CARBON DIOXIDE LEVEL 24 MMOL/L (20-31); CHLORIDE LEVEL 101 MMOL/L (98-107); CREATININE FOR GFR 3.67 MG/DL (0.55-1.30); GLOMERULAR FILTRATION RATE 13.4 (>45); GLUCOSE, FASTING 105 MG/DL (74-106); POTASSIUM SERUM 4.4 MMOL/L (3.5-5.1); SODIUM LEVEL 135 MMOL/L (136-145); TOTAL PROTEIN 6.9 G/DL (5.7-8.2)
[2023-05-08 20:16] LABS: CK-MB VALUE MASS < 1.0 NG/ML (<3.6)
[2023-05-08 20:19] LABS: CPK CREATINE PHOSPHOKINASE 29 U/L (34-145); MB/CK RELATIVE INDEX 3.44 (< OR =4)
[2023-05-08 20:25] VITALS: BP 115/85; TEMP 99; O2SAT 100
== END 2023-05-08 21:55 | disposition home or self-care (01) ==
LOC: EDBD 17:25 → M ED 17:25
DX: U07.1 COVID-19 (principal); I13.2 Hypertensive heart and chronic kidney disease with heart failure and with stage 5 chronic kidney disease, or end stage renal disease; I50.9 Heart failure, unspecified; Z99.2 Dependence on renal dialysis; E11.9 Type 2 diabetes mellitus without complications; J44.9 Chronic obstructive pulmonary disease, unspecified; Z99.81 Dependence on supplemental oxygen; E03.9 Hypothyroidism, unspecified; D64.9 Anemia, unspecified; Z88.2 Allergy status to sulfonamides; Z88.5 Allergy status to narcotic agent; Z88.6 Allergy status to analgesic agent; Z88.8 Allergy status to other drugs, medicaments and biological substances; Z79.890 Hormone replacement therapy; Z79.899 Other long term (current) drug therapy; Z79.51 Long term (current) use of inhaled steroids; Z11.52 Encounter for screening for COVID-19

== ENCOUNTER 2023-05-09 02:30 | Emergency (ER) | payer OTHER ==
[~2023-05-09] VITALS: Ht 170.2 cm; Wt 111.8 kg
[2023-05-09 03:09] LABS: VENOUS BASE EXCESS -3.6 (-2.0-2.0); VENOUS HCO3 20.5 MMOL/L (23.0-27.0); VENOUS O2 SATURATION 83.2 % (60.0-80.0); VENOUS PARTIAL PRESSURE CO2 33.9 mmHg (38.0-50.0); VENOUS PARTIAL PRESSURE O2 49.6 mmHg (30.0-50.0); VENOUS STANDARD HCO3 21.2 MMOL/L; VENOUS TOTAL CO2 21.6 MMOL/L (24.0-28.0)
[2023-05-09 07:27] VITALS: BP 126/73; TEMP 96.9; O2SAT 100
== END 2023-05-09 07:40 | disposition home or self-care (01) ==
LOC: M ED 02:30
DX: R06.00 Dyspnea, unspecified (principal); U07.1 COVID-19; I44.0 Atrioventricular block, first degree; I42.2 Other hypertrophic cardiomyopathy; I45.81 Long QT syndrome; J45.909 Unspecified asthma, uncomplicated; J44.9 Chronic obstructive pulmonary disease, unspecified; N18.9 Chronic kidney disease, unspecified; Z88.2 Allergy status to sulfonamides; Z88.5 Allergy status to narcotic agent; Z88.8 Allergy status to other drugs, medicaments and biological substances; Z79.02 Long term (current) use of antithrombotics/antiplatelets; Z79.52 Long term (current) use of systemic steroids; Z79.811 Long term (current) use of aromatase inhibitors; Z79.4 Long term (current) use of insulin; Z79.899 Other long term (current) drug therapy

== ENCOUNTER 2023-05-09 12:37 | Emergency (ER) | payer OTHER | END 2023-05-09 12:50 | disposition left against medical advice (07) | LOC: EDBD 12:37 → M ED 12:37 | DX: Z53.21 Procedure and treatment not carried out due to patient leaving prior to being seen by health care provider (principal) ==

== ENCOUNTER 2023-05-20 03:54 | Inpatient (IN) | payer OTHER ==
[~2023-05-20] VITALS: Ht 172.7 cm; Wt 118.0 kg
[~2023-05-20 03:54] MED LIST changes: -FLUT50SP17 NARES; +FLUTISP NARES
[2023-05-20 05:11] LABS: VENOUS BASE EXCESS -0.4 (-2.0-2.0); VENOUS O2 SATURATION 93.4 % (60.0-80.0); VENOUS PARTIAL PRESSURE CO2 38.2 mmHg (38.0-50.0); VENOUS PARTIAL PRESSURE O2 74.6 mmHg (30.0-50.0); VENOUS PH 7.416 UNITS (7.330-7.430); VENOUS STANDARD HCO3 24.1 MMOL/L; VENOUS TOTAL CO2 25.2 MMOL/L (24.0-28.0)
[2023-05-20 05:15] LABS: BASO # 0.1 10^3/uL (0.0-0.2); BASO % 0.7 % (0.0-1.0); EOS % 0.1 % (0.0-3.0); HEMATOCRIT 29.1 % (36.0-47.0); LYMPH # 0.4 10^3/uL (1.5-5.0); LYMPH % 5.6 % (24.0-44.0); MEAN CORPUSCULAR HEMOGLOBIN 28.9 pg (27.0-33.0); MEAN CORPUSCULAR HGB CONC 30.9 g/dl (32.0-36.5); MEAN CORPUSCULAR VOLUME 93.6 fl (80.0-96.0); MONO # 0.7 10^3/uL (0.0-0.8); MONO % 8.7 % (2.0-8.0); NEUTROPHILS # 6.3 10^3/uL (1.5-8.5); NEUTROPHILS % 84.5 % (36.0-66.0); PLATELET COUNT, AUTOMATED 173 10^3/uL (150-450); RED BLOOD COUNT 3.11 10^6/uL (4.00-5.40); WHITE BLOOD COUNT 7.4 10^3/uL (4.0-10.0)
[2023-05-20 05:38] LABS: CK-MB VALUE MASS 1.9 NG/ML (<3.6)
[2023-05-20 05:40] LABS: MB/CK RELATIVE INDEX 6.33 (< OR =4)
[2023-05-20 05:57] LABS: ALBUMIN 2.7 G/DL (3.2-5.2); BILIRUBIN,DIRECT 0.2 MG/DL (<0.4); BILIRUBIN,TOTAL 0.4 MG/DL (0.3-1.2); CALCIUM LEVEL 9.6 MG/DL (8.3-10.6); CREATININE FOR GFR 8.38 MG/DL (0.55-1.30); GLOMERULAR FILTRATION RATE 5.2 (>45); POTASSIUM SERUM 6.7 MMOL/L (3.5-5.1); THYROID STIMULATING HORMONE 7.914 uIU/ML (0.55-4.78); TOTAL PROTEIN 6.4 G/DL (5.7-8.2)
[2023-05-20] MEDS ORDERED: DEXTROSE 50% 50ML SYRINGE IV ONE (06:10)
[2023-05-20] MEDS ORDERED: CALCIUM GLUCONATE 1,000MG/10ML VIAL (100MG/ML) IV ONE (06:10)
[2023-05-20] MEDS ORDERED: PATIROMER SORBITEX CALCIUM 8.4 GM POWDER PACKET (VELTASSA) PO ONE (06:10)
[2023-05-20] MEDS ORDERED: HumuLIN R (REGULAR) INSULIN (NovoLIN R) **100U/ML** PER UNIT IV ONE (06:10)
[2023-05-20] MEDS ORDERED: SODIUM BICARBONATE 8.4% INJ 50ML SYRINGE IV ONE (06:10)
[2023-05-20] MEDS ORDERED: ACETAMINOPHEN 500 MG TAB PO ONE (09:50)
[2023-05-20 10:17] LABS: CPK CREATINE PHOSPHOKINASE 29 U/L (34-145)
[2023-05-20 10:26] LABS: BLOOD UREA NITROGEN 63 MG/DL (9-23); CALCIUM LEVEL 10.1 MG/DL (8.3-10.6); CARBON DIOXIDE LEVEL 26 MMOL/L (20-31); CHLORIDE LEVEL 94 MMOL/L (98-107); CK-MB VALUE MASS 2.4 NG/ML (<3.6); CREATININE FOR GFR 8.42 MG/DL (0.55-1.30); GLOMERULAR FILTRATION RATE 5.1 (>45); GLUCOSE, FASTING 262 MG/DL (74-106); MB/CK RELATIVE INDEX 8.27 (< OR =4); POTASSIUM SERUM 6.5 MMOL/L (3.5-5.1); SODIUM LEVEL 129 MMOL/L (136-145)
[2023-05-20] MEDS ORDERED: SODIUM CHLORIDE 0.9% 1000ML IV PRN (10:45)
[2023-05-20] MEDS ORDERED: HEPARIN 1,000UNITS/ML 10ML VIAL (FOR RADIOLOGY & DIALYSIS ONLY) IV PRN (10:45)
[2023-05-20] MEDS ORDERED: LIDOCAINE 1% SDV 5ML VIAL SC PRN (10:45)
[2023-05-20] MEDS ORDERED: HEPARIN 1,000UNITS/ML 10ML VIAL (FOR RADIOLOGY & DIALYSIS ONLY) XX SCH (10:45)
[2023-05-20] MEDS ORDERED: MED REC IN PROGRESS XX SCH (10:50)
[2023-05-20] MEDS ORDERED: GLUCOSE 4GM CHEW TABLET PO PRN (11:45)
[2023-05-20] MEDS ORDERED: DEXTROSE 50% 50ML SYRINGE IV PRN (11:45)
[2023-05-20] MEDS ORDERED: GLUCAGON INJ 1MG VIAL SC PRN (11:45)
[2023-05-20] MEDS: INSULIN LISPRO (NovoLOG) PER UNIT SC SCH ×2 (14:12→18:04)
[2023-05-20 15:53] VITALS: BP 150/71; TEMP 98.7; O2SAT 90
[2023-05-20 17:46] LABS: HEPATITIS B SURFACE ANTIBODY NEGATIVE (POSITIVE)
[2023-05-20 18:18] LABS: HEPATITIS B CORE ANTIBODY IGM NEGATIVE (NEGATIVE); HEPATITIS C VIRUS ABY INDEX 0.06 INDEX (<0.8)
[2023-05-20] MEDS ORDERED: hydrALAZINE 20MG/ML 1ML VIAL IV PRN (19:25)
[2023-05-20] MEDS ORDERED: RAMELTEON 8 MG TAB (ROZEREM) PO PRN (19:55)
[2023-05-20 20:00] VITALS: BP 131/78; TEMP 97.7; O2SAT 93
[2023-05-20] MEDS ORDERED: CETI-24 PO (20:07)
[2023-05-20] MEDS ORDERED: HYDR-3363 PO (20:07)
[2023-05-20] MEDS ORDERED: DULO1CAP6 PO (20:07)
[2023-05-20] MEDS ORDERED: IPRA0.00 INH (20:07)
[2023-05-20] MEDS ORDERED: LOSA50TA28 PO (20:09)
[2023-05-20] MEDS ORDERED: HOME MED LIST COMPLETE! XX SCH (20:10)
[2023-05-20] MEDS ORDERED: MED REC COMMENT (20:11)
[2023-05-20] MEDS ORDERED: diphenhydrAMINE 25MG CAP PO ONE (20:15)
[2023-05-20] MEDS ORDERED: LOPERAMIDE 2 MG CAPLET PO PRN (20:15)
[2023-05-20] MEDS ORDERED: ALBUTEROL 90 MCG/ACT 8GM HFA INHALER INH PRN (20:15)
[2023-05-20] MEDS ORDERED: SENOKOT S TAB PO PRN (20:15)
[2023-05-20] MEDS ORDERED: FLUTICASONE PROP 0.05% NASAL SPRAY 16 GM (FLONASE) NARES PRN (20:15)
[2023-05-20] MEDS ORDERED: MIRALAX *UNIT DOSE* 17GM PACKET PO PRN (20:15)
[2023-05-20] MEDS ORDERED: QUEtiapine FUMARATE 25 MG TAB PO SCH (21:00)
[2023-05-20] MEDS ORDERED: METOPROLOL SUCC (TopROL XL) 50MG **XL** TAB PO SCH (21:00)
[2023-05-20] MEDS ORDERED: INSULIN LISPRO (NovoLOG) PER UNIT SC SCH (21:00)
[2023-05-20] MEDS ORDERED: traMADol ER 100MG TABLET (ULTRAM ER) PO SCH (21:00)
[2023-05-20] MEDS ORDERED: ATORVASTATIN 10 MG TAB PO SCH (21:00)
[2023-05-20] MEDS ORDERED: BUDESONIDE 0.5 MG/2 ML INHALATION SUSPENSION INH SCH (21:00)
[2023-05-20] MEDS: DULoxetine 30MG CAPSULE (CYMBALTA) PO SCH (21:02)
[2023-05-20] MEDS: **hydrALAZINE HCL** 25 MG TAB PO SCH (21:03)
[2023-05-20] MEDS: busPIRone 5 MG TAB PO SCH (21:12)
[2023-05-20] MEDS: SYMBICORT 160/4.5MCG INHALER 6GM INH SCH (22:05)
[2023-05-21 04:00] VITALS: BP 163/79; TEMP 98; O2SAT 90
[2023-05-21] MEDS: busPIRone 5 MG TAB PO SCH ×2 (05:42→11:55)
[2023-05-21] MEDS ORDERED: LEVOTHYROXINE 100MCG TABLET (0.1MG) PO SCH (06:00)
[2023-05-21] MEDS ORDERED: LIDOCAINE 1% SDV 5ML VIAL SC PRN (06:00)
[2023-05-21] MEDS ORDERED: HEPARIN SOD (PORCINE) 5000UNITS/ML 1ML VIAL/SYRINGE SC SCH (06:00)
[2023-05-21] MEDS ORDERED: HEPARIN 1,000UNITS/ML 10ML VIAL (FOR RADIOLOGY & DIALYSIS ONLY) XX SCH (06:00)
[2023-05-21] MEDS ORDERED: SODIUM CHLORIDE 0.9% 1000ML IV PRN (06:00)
[2023-05-21] MEDS ORDERED: LEVOTHYROXINE 75MCG TABLET (0.075MG) PO SCH (06:00)
[2023-05-21] MEDS: INSULIN LISPRO (NovoLOG) PER UNIT SC SCH ×2 (06:49→12:00)
[2023-05-21] MEDS: SYMBICORT 160/4.5MCG INHALER 6GM INH SCH (07:44)
[2023-05-21] MEDS: LACTOBACILLUS ACIDOPHILUS CAP (BACID) PO SCH ×2 (08:00→12:00)
[2023-05-21] MEDS: (RENVELA) SEVELAMER **CARBONate** 800 MG TAB PO SCH ×2 (08:00→12:00)
[2023-05-21] MEDS ORDERED: TIOTROPIUM INHALER/CAPSULE (SPIRIVA) INH SCH (08:00)
[2023-05-21 08:25] LABS: BASO % 0.4 % (0.0-1.0); HEMATOCRIT 28.5 % (36.0-47.0); HEMOGLOBIN 8.8 g/dl (12.0-15.5); LYMPH # 0.6 10^3/uL (1.5-5.0); LYMPH % 12.2 % (24.0-44.0); MEAN CORPUSCULAR HEMOGLOBIN 29.2 pg (27.0-33.0); MEAN CORPUSCULAR HGB CONC 30.9 g/dl (32.0-36.5); MEAN CORPUSCULAR VOLUME 94.7 fl (80.0-96.0); MONO # 0.3 10^3/uL (0.0-0.8); MONO % 4.8 % (2.0-8.0); NEUTROPHILS # 4.2 10^3/uL (1.5-8.5); PLATELET COUNT, AUTOMATED 161 10^3/uL (150-450); RED BLOOD COUNT 3.01 10^6/uL (4.00-5.40); WHITE BLOOD COUNT 5.2 10^3/uL (4.0-10.0)
[2023-05-21 08:47] LABS: ALBUMIN 2.5 G/DL (3.2-5.2); CALCIUM LEVEL 9.6 MG/DL (8.3-10.6); CREATININE FOR GFR 5.13 MG/DL (0.55-1.30); GLOMERULAR FILTRATION RATE 9.1 (>45); PHOSPHORUS LEVEL 7.1 MG/DL (2.4-5.1); POTASSIUM SERUM 4.2 MMOL/L (3.5-5.1)
[2023-05-21] MEDS ORDERED: CINACALCET 30 MG TAB (SENSIPAR) PO SCH (09:00)
[2023-05-21] MEDS ORDERED: CETIRIZINE (ZyrTEC) 10 MG TAB PO SCH (09:00)
[2023-05-21] MEDS ORDERED: LIDOCAINE 5% (LIDODERM) PATCH TOP SCH (09:00)
[2023-05-21] MEDS ORDERED: LOSARTAN 50MG TABLET PO SCH (09:00)
[2023-05-21] MEDS ORDERED: VENLAFAXINE **XR** 75MG CAPSULE PO SCH (09:00)
[2023-05-21 10:07] LABS: CALCIUM LEVEL 9.3 MG/DL (8.3-10.6); CREATININE FOR GFR 5.11 MG/DL (0.55-1.30); GLOMERULAR FILTRATION RATE 9.1 (>45); POTASSIUM SERUM 4.4 MMOL/L (3.5-5.1)
[2023-05-21] MEDS: **hydrALAZINE HCL** 25 MG TAB PO SCH (11:55)
[2023-05-21] MEDS: DULoxetine 30MG CAPSULE (CYMBALTA) PO SCH (11:55)
[2023-05-21 11:58] VITALS: BP 163/79
[2023-05-21] MEDS ORDERED: TRAM100T21 PO (12:21)
[2023-05-21] MEDS ORDERED: BUSP5TA PO (12:21)
== END 2023-05-21 12:50 | disposition home or self-care (01) | DRG 425 ==
LOC: M ED 03:54 → M ED INP 11:45 → M PCU 14:40
PROVIDERS: ADMIT Internal Medicine; ATTEND Internal Medicine
PROC: 5A1D70Z Performance of Urinary Filtration, Intermittent, Less than 6 Hours Per Day (ICD-10-PCS; principal; 2023-05-20)
DX: E87.70 Fluid overload, unspecified (principal); I13.2 Hypertensive heart and chronic kidney disease with heart failure and with stage 5 chronic kidney disease, or end stage renal disease; J96.11 Chronic respiratory failure with hypoxia; N18.6 End stage renal disease; I24.89 Other forms of acute ischemic heart disease; I50.32 Chronic diastolic (congestive) heart failure; K76.0 Fatty (change of) liver, not elsewhere classified; E21.1 Secondary hyperparathyroidism, not elsewhere classified; E87.1 Hypo-osmolality and hyponatremia; I25.10 Atherosclerotic heart disease of native coronary artery without angina pectoris; K21.9 Gastro-esophageal reflux disease without esophagitis; Z91.158 Patient's noncompliance with renal dialysis for other reason; E87.5 Hyperkalemia; M19.90 Unspecified osteoarthritis, unspecified site; F41.9 Anxiety disorder, unspecified; F32.A Depression, unspecified; E89.0 Postprocedural hypothyroidism; G89.29 Other chronic pain; D63.8 Anemia in other chronic diseases classified elsewhere; Z95.2 Presence of prosthetic heart valve; Z91.119 Patient's noncompliance with dietary regimen due to unspecified reason; Z88.2 Allergy status to sulfonamides; Z88.8 Allergy status to other drugs, medicaments and biological substances; Z88.6 Allergy status to analgesic agent; Z79.899 Other long term (current) drug therapy; G47.33 Obstructive sleep apnea (adult) (pediatric); E55.9 Vitamin D deficiency, unspecified; E11.9 Type 2 diabetes mellitus without complications; I08.0 Rheumatic disorders of both mitral and aortic valves; Z87.891 Personal history of nicotine dependence; Z79.4 Long term (current) use of insulin

== ENCOUNTER 2023-05-25 04:19 | Emergency (ER) | payer OTHER ==
[~2023-05-25 04:19] MED LIST changes: +MED REC COMMENT
[2023-05-25 05:59] LABS: RSV AMPLIFICATION NEGATIVE (NEGATIVE)
[2023-05-25 07:42] VITALS: BP 178/82; TEMP 97.5; O2SAT 94
== END 2023-05-25 07:45 | disposition home or self-care (01) ==
LOC: M ED 04:19
DX: J44.1 Chronic obstructive pulmonary disease with (acute) exacerbation (principal); I10 Essential (primary) hypertension; E11.9 Type 2 diabetes mellitus without complications; J45.909 Unspecified asthma, uncomplicated; E78.5 Hyperlipidemia, unspecified; N18.6 End stage renal disease; Z86.79 Personal history of other diseases of the circulatory system; Z87.891 Personal history of nicotine dependence; Z88.2 Allergy status to sulfonamides; Z88.5 Allergy status to narcotic agent; Z88.6 Allergy status to analgesic agent; Z88.8 Allergy status to other drugs, medicaments and biological substances; Z79.52 Long term (current) use of systemic steroids; Z79.4 Long term (current) use of insulin; Z79.811 Long term (current) use of aromatase inhibitors; Z79.899 Other long term (current) drug therapy

== ENCOUNTER 2023-05-25 16:55 | Emergency (ER) | payer OTHER ==
[2023-05-25] MEDS ORDERED: IPRATROPIUM 0.5MG/ALBUTEROL 2.5MG INH SOL UD 3ML (DUONEB) NEB ONE (20:25)
[2023-05-25 20:54] LABS: BASO % 0.3 % (0.0-1.0); EOS % 0.5 % (0.0-3.0); HEMATOCRIT 30.5 % (36.0-47.0); HEMOGLOBIN 9.4 g/dl (12.0-15.5); LYMPH # 0.4 10^3/uL (1.5-5.0); MEAN CORPUSCULAR HEMOGLOBIN 28.4 pg (27.0-33.0); MEAN CORPUSCULAR HGB CONC 30.8 g/dl (32.0-36.5); MEAN CORPUSCULAR VOLUME 92.1 fl (80.0-96.0); MONO # 0.4 10^3/uL (0.0-0.8); MONO % 6.9 % (2.0-8.0); NEUTROPHILS # 5.1 10^3/uL (1.5-8.5); PLATELET COUNT, AUTOMATED 138 10^3/uL (150-450); RED BLOOD COUNT 3.31 10^6/uL (4.00-5.40)
[2023-05-25 21:23] LABS: BILIRUBIN,DIRECT 0.2 MG/DL (<0.4); BILIRUBIN,TOTAL 0.5 MG/DL (0.3-1.2); CALCIUM LEVEL 10.1 MG/DL (8.3-10.6); CREATININE FOR GFR 6.95 MG/DL (0.55-1.30); GLOMERULAR FILTRATION RATE 6.4 (>45); POTASSIUM SERUM 4.9 MMOL/L (3.5-5.1); TOTAL PROTEIN 6.7 G/DL (5.7-8.2)
[2023-05-25 21:24] LABS: RSV AMPLIFICATION NEGATIVE (NEGATIVE)
[2023-05-25 23:15] VITALS: BP 174/89; TEMP 97.4; O2SAT 100
== END 2023-05-25 23:17 | disposition home or self-care (01) ==
LOC: M ED 16:55
DX: N18.6 End stage renal disease (principal); J44.9 Chronic obstructive pulmonary disease, unspecified; I10 Essential (primary) hypertension; E11.9 Type 2 diabetes mellitus without complications; Z79.52 Long term (current) use of systemic steroids; Z79.4 Long term (current) use of insulin; Z79.811 Long term (current) use of aromatase inhibitors; Z79.899 Other long term (current) drug therapy; Z88.2 Allergy status to sulfonamides; Z88.5 Allergy status to narcotic agent; Z88.6 Allergy status to analgesic agent; Z88.8 Allergy status to other drugs, medicaments and biological substances

== ENCOUNTER 2023-05-26 11:15 | Inpatient (IN) | payer OTHER ==
[~2023-05-26] VITALS: Ht 170.2 cm; Wt 99.9 kg
[2023-05-26] MEDS: SYMBICORT 160/4.5MCG INHALER 6GM INH SCH ×2 (08:00→20:45)
[2023-05-26] MEDS ORDERED: hydrALAZINE 20MG/ML 1ML VIAL IV PRN (17:15)
[2023-05-26] MEDS ORDERED: FUROSEMIDE 100MG/10ML VIAL IV ONE (17:30)
[2023-05-26] MEDS ORDERED: DEXTROSE 50% 50ML SYRINGE IV PRN (17:35)
[2023-05-26] MEDS ORDERED: GLUCOSE 4GM CHEW TABLET PO PRN (17:35)
[2023-05-26] MEDS ORDERED: GLUCAGON INJ 1MG VIAL SC PRN (17:35)
[2023-05-26] MEDS: IPRATROPIUM 0.5MG/ALBUTEROL 2.5MG INH SOL UD 3ML (DUONEB) NEB PRN (19:34)
[2023-05-26] MEDS ORDERED: HOME MED LIST COMPLETE! XX SCH (19:35)
[2023-05-26] MEDS ORDERED: traMADol 50 MG TAB PO ONE (20:00)
[2023-05-26] MEDS ORDERED: ALBUTEROL SULFATE 2.5MG/0.5ML INH NEB SOLN As Ordered ONE (20:09)
[2023-05-26] MEDS ORDERED: ALBUTEROL SULFATE 2.5MG/0.5ML INH NEB SOLN NEB ONE (20:20)
[2023-05-26 20:45] VITALS: BP 202/96; TEMP 96.7; O2SAT 93; O2SAT 94
[2023-05-26] MEDS: INSULIN LISPRO (NovoLOG) PER UNIT SC SCH (20:56)
[2023-05-26] MEDS ORDERED: **hydrALAZINE** 50 MG TAB PO SCH (21:00)
[2023-05-26 22:00] VITALS: BP 140/80; O2SAT 93
[2023-05-27] VITALS (8 sets, daily range): BP systolic 111–189; BP diastolic 62–90; TEMP 96.6–98.1; O2SAT 92–99
[2023-05-27] MEDS: IPRATROPIUM 0.5MG/ALBUTEROL 2.5MG INH SOL UD 3ML (DUONEB) NEB PRN (01:52)
[2023-05-27] MEDS: HEPARIN SOD (PORCINE) 5000UNITS/ML 1ML VIAL/SYRINGE SC SCH ×3 (06:00→21:39)
[2023-05-27] MEDS: INSULIN LISPRO (NovoLOG) PER UNIT SC SCH ×4 (06:24→20:35)
[2023-05-27] MEDS ORDERED: HEPARIN 1,000UNITS/ML 10ML VIAL (FOR RADIOLOGY & DIALYSIS ONLY) XX SCH (06:45)
[2023-05-27] MEDS ORDERED: SODIUM CHLORIDE 0.9% 1000ML IV PRN (06:45)
[2023-05-27] MEDS ORDERED: HEPARIN 1,000UNITS/ML 10ML VIAL (FOR RADIOLOGY & DIALYSIS ONLY) IV PRN (06:45)
[2023-05-27] MEDS ORDERED: LIDOCAINE 1% SDV 5ML VIAL SC PRN (06:45)
[2023-05-27 07:02] LABS: MEAN CORPUSCULAR HEMOGLOBIN 29.8 pg (27.0-33.0); MEAN CORPUSCULAR HGB CONC 32.1 g/dl (32.0-36.5); MEAN CORPUSCULAR VOLUME 92.7 fl (80.0-96.0); PLATELET COUNT, AUTOMATED 143 10^3/uL (150-450); RED BLOOD COUNT 3.02 10^6/uL (4.00-5.40); WHITE BLOOD COUNT 5.8 10^3/uL (4.0-10.0)
[2023-05-27 07:49] LABS: CALCIUM LEVEL 9.4 MG/DL (8.3-10.6); PHOSPHORUS LEVEL 12.2 MG/DL (2.4-5.1); POTASSIUM SERUM 5.6 MMOL/L (3.5-5.1)
[2023-05-27 07:50] LABS: CREATININE FOR GFR 8.92 MG/DL (0.55-1.30); GLOMERULAR FILTRATION RATE 4.8 (>45)
[2023-05-27] MEDS: TIOTROPIUM INHALER/CAPSULE (SPIRIVA) INH SCH (08:00)
[2023-05-27] MEDS: ALBUTEROL SULFATE 2.5MG/0.5ML INH NEB SOLN NEB PRN ×3 (09:47→20:02)
[2023-05-27] MEDS: CETIRIZINE (ZyrTEC) 10 MG TAB PO SCH (13:43)
[2023-05-27] MEDS: busPIRone 5 MG TAB PO SCH ×2 (13:43→21:40)
[2023-05-27] MEDS: CINACALCET 30 MG TAB (SENSIPAR) PO SCH (13:44)
[2023-05-27] MEDS: DULoxetine 30MG CAPSULE (CYMBALTA) PO SCH ×2 (13:44→21:40)
[2023-05-27] MEDS ORDERED: ACETAMINOPHEN TAB 650MG DOSE (2X325MG) PO ONE (16:15)
[2023-05-27] MEDS: LEVOTHYROXINE 100MCG TABLET (0.1MG) PO SCH (16:20)
[2023-05-27] MEDS: LEVOTHYROXINE 75MCG TABLET (0.075MG) PO SCH (16:20)
[2023-05-27] MEDS: (RENVELA) SEVELAMER **CARBONate** 800 MG TAB PO SCH (18:40)
[2023-05-27] MEDS: SYMBICORT 160/4.5MCG INHALER 6GM INH SCH (19:59)
[2023-05-27] MEDS ORDERED: QUEtiapine FUMARATE 25 MG TAB PO SCH (21:00)
[2023-05-27] MEDS ORDERED: traMADol ER 100MG TABLET (ULTRAM ER) PO SCH (21:00)
[2023-05-27] MEDS ORDERED: METOPROLOL SUCC (TopROL XL) 50MG **XL** TAB PO SCH (21:00)
[2023-05-27] MEDS ORDERED: ATORVASTATIN 10 MG TAB PO SCH (21:00)
[2023-05-28 04:52] VITALS: O2SAT 96
[2023-05-28] MEDS: ALBUTEROL SULFATE 2.5MG/0.5ML INH NEB SOLN NEB PRN ×2 (04:58→11:16)
[2023-05-28 06:00] VITALS: BP 116/61; TEMP 97.7; O2SAT 94
[2023-05-28] MEDS: CINACALCET 30 MG TAB (SENSIPAR) PO SCH (06:04)
[2023-05-28] MEDS: LEVOTHYROXINE 75MCG TABLET (0.075MG) PO SCH (06:05)
[2023-05-28] MEDS: (RENVELA) SEVELAMER **CARBONate** 800 MG TAB PO SCH ×2 (06:05→13:12)
[2023-05-28] MEDS: busPIRone 5 MG TAB PO SCH (06:05)
[2023-05-28] MEDS: DULoxetine 30MG CAPSULE (CYMBALTA) PO SCH (06:05)
[2023-05-28] MEDS: CETIRIZINE (ZyrTEC) 10 MG TAB PO SCH (06:05)
[2023-05-28] MEDS: LEVOTHYROXINE 100MCG TABLET (0.1MG) PO SCH (06:05)
[2023-05-28 06:06] VITALS: BP 116/61
[2023-05-28] MEDS: HEPARIN SOD (PORCINE) 5000UNITS/ML 1ML VIAL/SYRINGE SC SCH ×2 (06:06→13:30)
[2023-05-28 06:17] LABS: BASO % 0.3 % (0.0-1.0); EOS # 0.1 10^3/uL (0.0-0.5); EOS % 1.5 % (0.0-3.0); HEMATOCRIT 27.6 % (36.0-47.0); HEMOGLOBIN 8.6 g/dl (12.0-15.5); LYMPH # 0.4 10^3/uL (1.5-5.0); LYMPH % 10.4 % (24.0-44.0); MEAN CORPUSCULAR HEMOGLOBIN 29.3 pg (27.0-33.0); MEAN CORPUSCULAR HGB CONC 31.2 g/dl (32.0-36.5); MEAN CORPUSCULAR VOLUME 93.9 fl (80.0-96.0); MONO # 0.4 10^3/uL (0.0-0.8); MONO % 11.9 % (2.0-8.0); NEUTROPHILS # 2.5 10^3/uL (1.5-8.5); NEUTROPHILS % 75.3 % (36.0-66.0); PLATELET COUNT, AUTOMATED 132 10^3/uL (150-450); RED BLOOD COUNT 2.94 10^6/uL (4.00-5.40); WHITE BLOOD COUNT 3.4 10^3/uL (4.0-10.0)
[2023-05-28 06:40] LABS: CALCIUM LEVEL 9.5 MG/DL (8.3-10.6); CREATININE FOR GFR 5.59 MG/DL (0.55-1.30); GLOMERULAR FILTRATION RATE 8.2 (>45); POTASSIUM SERUM 4.8 MMOL/L (3.5-5.1)
[2023-05-28] MEDS ORDERED: HEPARIN 1,000UNITS/ML 10ML VIAL (FOR RADIOLOGY & DIALYSIS ONLY) XX SCH (06:50)
[2023-05-28] MEDS ORDERED: SODIUM CHLORIDE 0.9% 1000ML IV PRN (06:50)
[2023-05-28] MEDS ORDERED: LIDOCAINE 1% SDV 5ML VIAL SC PRN (06:50)
[2023-05-28] MEDS ORDERED: DARBEPOETIN 100MCG/0.5ML *DIALYSIS* SYRINGE IV SCH (06:50)
[2023-05-28] MEDS ORDERED: HEPARIN 1,000UNITS/ML 10ML VIAL (FOR RADIOLOGY & DIALYSIS ONLY) IV PRN (06:50)
[2023-05-28] MEDS: SYMBICORT 160/4.5MCG INHALER 6GM INH SCH (07:23)
[2023-05-28] MEDS: TIOTROPIUM INHALER/CAPSULE (SPIRIVA) INH SCH (07:23)
[2023-05-28] MEDS: INSULIN LISPRO (NovoLOG) PER UNIT SC SCH ×2 (07:30→13:14)
[2023-05-28] MEDS ORDERED: HYDR-3910 PO (09:56)
[2023-05-28 16:00] VITALS: BP 115/71; TEMP 97.1; O2SAT 98
== END 2023-05-28 18:25 | disposition home health service (06) | DRG 194 ==
LOC: EDBD 11:15 → M ED 11:15 → M ED INP 17:35 → OBSVTOIN 19:39 → M PCU 20:29 → M MS5PR 05-27 23:39
PROVIDERS: ADMIT Internal Medicine; ATTEND Internal Medicine
PROC: 5A1D70Z Performance of Urinary Filtration, Intermittent, Less than 6 Hours Per Day (ICD-10-PCS; principal; 2023-05-27)
DX: I13.2 Hypertensive heart and chronic kidney disease with heart failure and with stage 5 chronic kidney disease, or end stage renal disease (principal); Z91.158 Patient's noncompliance with renal dialysis for other reason; J44.9 Chronic obstructive pulmonary disease, unspecified; I50.32 Chronic diastolic (congestive) heart failure; I27.20 Pulmonary hypertension, unspecified; I25.10 Atherosclerotic heart disease of native coronary artery without angina pectoris; E78.5 Hyperlipidemia, unspecified; N18.6 End stage renal disease; J96.11 Chronic respiratory failure with hypoxia; Z99.81 Dependence on supplemental oxygen; E11.9 Type 2 diabetes mellitus without complications; K21.9 Gastro-esophageal reflux disease without esophagitis; G47.33 Obstructive sleep apnea (adult) (pediatric); F41.9 Anxiety disorder, unspecified; F32.A Depression, unspecified; D63.1 Anemia in chronic kidney disease; N25.81 Secondary hyperparathyroidism of renal origin; E83.39 Other disorders of phosphorus metabolism; Z91.148 Patient's other noncompliance with medication regimen for other reason; Z88.2 Allergy status to sulfonamides; Z88.6 Allergy status to analgesic agent; Z88.8 Allergy status to other drugs, medicaments and biological substances; Z88.5 Allergy status to narcotic agent; Z79.899 Other long term (current) drug therapy; E89.0 Postprocedural hypothyroidism; E87.1 Hypo-osmolality and hyponatremia; E87.5 Hyperkalemia; I16.0 Hypertensive urgency; G89.29 Other chronic pain

== ENCOUNTER 2023-06-02 06:48 | Inpatient (IN) | payer OTHER ==
[~2023-06-02] VITALS: Ht 170.2 cm; Wt 104.0 kg
[2023-06-02 07:27] LABS: BASO % 0.5 % (0.0-1.0); EOS # 0.2 10^3/uL (0.0-0.5); EOS % 1.9 % (0.0-3.0); HEMATOCRIT 30.2 % (36.0-47.0); HEMOGLOBIN 9.2 g/dl (12.0-15.5); LYMPH # 0.5 10^3/uL (1.5-5.0); MEAN CORPUSCULAR HEMOGLOBIN 29.2 pg (27.0-33.0); MEAN CORPUSCULAR HGB CONC 30.5 g/dl (32.0-36.5); MEAN CORPUSCULAR VOLUME 95.9 fl (80.0-96.0); MONO # 0.4 10^3/uL (0.0-0.8); MONO % 5.5 % (2.0-8.0); NEUTROPHILS # 6.8 10^3/uL (1.5-8.5); NEUTROPHILS % 84.2 % (36.0-66.0); PLATELET COUNT, AUTOMATED 207 10^3/uL (150-450); RED BLOOD COUNT 3.15 10^6/uL (4.00-5.40)
[2023-06-02] MEDS ORDERED: FUROSEMIDE 100MG/10ML VIAL IV ONE (07:30)
[2023-06-02 07:53] VITALS: O2SAT 90
[2023-06-02 07:55] LABS: INR 1.02; PROTHROMBIN TIME 13.1 SECONDS (12.5-14.5)
[2023-06-02 08:01] LABS: CPK CREATINE PHOSPHOKINASE 29 U/L (34-145)
[2023-06-02 08:01] LABS: ABG BASE EXCESS 3.6 (-2.0-2.0); ABG HCO3 28.2 MMOL/L (22.0-26.0); ABG O2 SATURATION 87.7 % (95.0-99.0); ABG PARTIAL PRESSURE CO2 42.5 mmHg (35.0-45.0); ABG PARTIAL PRESSURE O2 55.4 mmHg (75.0-100.0); ABG STANDARD HCO3 27.5 MMOL/L. (22.0-26.0); ABG TOTAL CO2 29.5 MMOL/L (23.0-31.0); ABG pH (ARTERIAL) 7.439 UNITS (7.350-7.450)
[2023-06-02 08:24] LABS: ALKALINE PHOSPHATASE 127 U/L (46-116); ALT/SGPT 15 U/L (7.0-40); AST/SGOT 16 U/L (<34); BILIRUBIN,DIRECT 0.1 MG/DL (<0.4); BILIRUBIN,TOTAL 0.4 MG/DL (0.3-1.2); BLOOD UREA NITROGEN 32 MG/DL (9-23); CALCIUM LEVEL 9.7 MG/DL (8.3-10.6); CARBON DIOXIDE LEVEL 28 MMOL/L (20-31); CHLORIDE LEVEL 98 MMOL/L (98-107); CK-MB VALUE MASS < 1.0 NG/ML (<3.6); CREATININE FOR GFR 4.68 MG/DL (0.55-1.30); GLOMERULAR FILTRATION RATE 10.1 (>45); GLUCOSE, FASTING 182 MG/DL (74-106); MB/CK RELATIVE INDEX 3.44 (< OR =4); POTASSIUM SERUM 4.7 MMOL/L (3.5-5.1); SODIUM LEVEL 135 MMOL/L (136-145); THYROXINE (T4) 9.1 UG/DL (4.5-10.9); TOTAL PROTEIN 6.8 G/DL (5.7-8.2)
[2023-06-02 08:35] LABS: CK-MB VALUE MASS < 1.0 NG/ML (<3.6)
[2023-06-02 08:37] LABS: CPK CREATINE PHOSPHOKINASE 23 U/L (34-145); MB/CK RELATIVE INDEX 4.34 (< OR =4)
[2023-06-02] MEDS: METOPROLOL SUCC (TopROL XL) 50MG **XL** TAB PO SCH (09:00)
[2023-06-02] MEDS ORDERED: MED REC IN PROGRESS XX SCH (09:40)
[2023-06-02] MEDS ORDERED: LIDOCAINE 1% SDV 5ML VIAL SC PRN (10:15)
[2023-06-02] MEDS ORDERED: SODIUM CHLORIDE 0.9% 1000ML IV PRN (10:15)
[2023-06-02] MEDS ORDERED: HEPARIN 1,000UNITS/ML 10ML VIAL (FOR RADIOLOGY & DIALYSIS ONLY) XX SCH (10:15)
[2023-06-02] MEDS ORDERED: HEPARIN 1,000UNITS/ML 10ML VIAL (FOR RADIOLOGY & DIALYSIS ONLY) IV PRN (10:15)
[2023-06-02] MEDS ORDERED: FURO20TA2 PO (11:09)
[2023-06-02] MEDS ORDERED: LIDO30CR18 TOP (11:09)
[2023-06-02] MEDS ORDERED: TIZA2TA PO (11:09)
[2023-06-02] MEDS ORDERED: RISATAB3 PO (11:09)
[2023-06-02] MEDS ORDERED: VENL75CA47 PO (11:09)
[2023-06-02] MEDS ORDERED: QUET1TAB17 PO (11:09)
[2023-06-02] MEDS ORDERED: HYDR-3910 PO (11:09)
[2023-06-02] MEDS ORDERED: VENTAER INH (11:09)
[2023-06-02] MEDS ORDERED: BUDE0.5S6 INH (11:09)
[2023-06-02] MEDS ORDERED: BUSP5TA PO (11:09)
[2023-06-02] MEDS ORDERED: TRAM1CAP15 PO (11:09)
[2023-06-02] MEDS ORDERED: LOPE1CAP5 PO (11:09)
[2023-06-02] MEDS ORDERED: TREL1AER PO (11:09)
[2023-06-02] MEDS ORDERED: HOME MED LIST COMPLETE! XX SCH (11:20)
[2023-06-02 15:34] VITALS: BP 171/77; TEMP 97.9; O2SAT 93
[2023-06-02 16:00] VITALS: O2SAT 92
[2023-06-02 19:18] VITALS: BP 136/63; TEMP 97.7; O2SAT 86
[2023-06-02 19:47] VITALS: O2SAT 91
[2023-06-02] MEDS: SYMBICORT 160/4.5MCG INHALER 6GM INH SCH (20:02)
[2023-06-02] MEDS: ALBUTEROL SULFATE 2.5MG/0.5ML INH NEB SOLN NEB PRN (20:02)
[2023-06-02] MEDS: SENOKOT S TAB PO SCH (20:45)
[2023-06-02] MEDS: DULoxetine 30MG CAPSULE (CYMBALTA) PO SCH (20:45)
[2023-06-02] MEDS: **hydrALAZINE HCL** 25 MG TAB PO SCH (20:46)
[2023-06-02] MEDS: busPIRone 5 MG TAB PO SCH (20:46)
[2023-06-02] MEDS ORDERED: ATORVASTATIN 10 MG TAB PO SCH (21:00)
[2023-06-02] MEDS ORDERED: QUEtiapine FUMARATE 25 MG TAB PO SCH (21:00)
[2023-06-02] MEDS ORDERED: BUDESONIDE 0.25 MG/2 ML INHALATION SUSPENSION INH SCH (21:00)
[2023-06-02] MEDS: traMADol ER 100MG TABLET (ULTRAM ER) PO SCH (21:09)
[2023-06-03] VITALS: BP 158/74; TEMP 98.4; O2SAT 99
[2023-06-03] MEDS: ALBUTEROL SULFATE 2.5MG/0.5ML INH NEB SOLN NEB PRN ×3 (00:56→16:12)
[2023-06-03 03:52] VITALS: BP 158/89; TEMP 98.4; O2SAT 99
[2023-06-03] MEDS ORDERED: LEVOTHYROXINE 100MCG TABLET (0.1MG) PO SCH (06:00)
[2023-06-03] MEDS ORDERED: LEVOTHYROXINE 75MCG TABLET (0.075MG) PO SCH (06:00)
[2023-06-03 07:51] VITALS: BP 161/74; TEMP 97.4; O2SAT 91
[2023-06-03] MEDS: SYMBICORT 160/4.5MCG INHALER 6GM INH SCH (07:59)
[2023-06-03] MEDS ORDERED: TIOTROPIUM INHALER/CAPSULE (SPIRIVA) INH SCH (08:00)
[2023-06-03] MEDS: busPIRone 5 MG TAB PO SCH ×2 (08:49→16:19)
[2023-06-03] MEDS: DULoxetine 30MG CAPSULE (CYMBALTA) PO SCH (08:49)
[2023-06-03] MEDS: SENOKOT S TAB PO SCH (08:49)
[2023-06-03] MEDS: **hydrALAZINE HCL** 25 MG TAB PO SCH ×2 (08:50→16:19)
[2023-06-03] MEDS: METOPROLOL SUCC (TopROL XL) 50MG **XL** TAB PO SCH (08:50)
[2023-06-03] MEDS ORDERED: CETIRIZINE (ZyrTEC) 10 MG TAB PO SCH (09:00)
[2023-06-03] MEDS ORDERED: VENLAFAXINE **XR** 75MG CAPSULE PO SCH (09:00)
[2023-06-03] MEDS ORDERED: LIDOCAINE 1% SDV 5ML VIAL SC PRN (10:10)
[2023-06-03] MEDS ORDERED: HEPARIN 1,000UNITS/ML 10ML VIAL (FOR RADIOLOGY & DIALYSIS ONLY) XX SCH (10:10)
[2023-06-03] MEDS ORDERED: HEPARIN 1,000UNITS/ML 10ML VIAL (FOR RADIOLOGY & DIALYSIS ONLY) IV PRN (10:10)
[2023-06-03] MEDS ORDERED: SODIUM CHLORIDE 0.9% 1000ML IV PRN (10:10)
[2023-06-03] MEDS ORDERED: HYDR-3910 PO (11:04)
[2023-06-03] MEDS ORDERED: BUDE0.5S6 INH (11:04)
[2023-06-03] MEDS ORDERED: LEVO175T2 PO (11:04)
[2023-06-03] MEDS ORDERED: VENTAER INH (11:04)
[2023-06-03] MEDS ORDERED: METO1TAB7 PO (11:04)
[2023-06-03] MEDS ORDERED: TREL1AER PO (11:04)
[2023-06-03] MEDS ORDERED: TORS20TA2 PO (11:06)
[2023-06-03 11:34] VITALS: BP 158/64; TEMP 96.7; O2SAT 95
[2023-06-03] MEDS ORDERED: FLUT1BLS8 INH ×8 (14:46→15:16)
[2023-06-03] MEDS ORDERED: FLUT1BLS8 IH (15:45)
[2023-06-03 16:19] VITALS: BP 160/78
[2023-06-03] MEDS: traMADol ER 100MG TABLET (ULTRAM ER) PO SCH (16:19)
[2023-06-03] MEDS ORDERED: TRAM1CAP15 PO (17:13)
== END 2023-06-03 17:46 | disposition home or self-care (01) | DRG 194 ==
LOC: EDBD 06:48 → M ED 06:48 → M ED INP 10:44 → M PCU 15:19
PROVIDERS: ADMIT Internal Medicine Nephrology; ATTEND Internal Medicine Nephrology
PROC: 5A1D70Z Performance of Urinary Filtration, Intermittent, Less than 6 Hours Per Day (ICD-10-PCS; principal; 2023-06-03)
DX: I13.2 Hypertensive heart and chronic kidney disease with heart failure and with stage 5 chronic kidney disease, or end stage renal disease (principal); J96.21 Acute and chronic respiratory failure with hypoxia; N18.6 End stage renal disease; E11.22 Type 2 diabetes mellitus with diabetic chronic kidney disease; I27.20 Pulmonary hypertension, unspecified; N25.81 Secondary hyperparathyroidism of renal origin; Z99.81 Dependence on supplemental oxygen; E66.01 Morbid (severe) obesity due to excess calories; K76.0 Fatty (change of) liver, not elsewhere classified; E55.9 Vitamin D deficiency, unspecified; D63.1 Anemia in chronic kidney disease; F41.9 Anxiety disorder, unspecified; E03.9 Hypothyroidism, unspecified; Z99.2 Dependence on renal dialysis; J44.9 Chronic obstructive pulmonary disease, unspecified; I25.10 Atherosclerotic heart disease of native coronary artery without angina pectoris; I08.0 Rheumatic disorders of both mitral and aortic valves; E78.5 Hyperlipidemia, unspecified; G47.33 Obstructive sleep apnea (adult) (pediatric); M48.061 Spinal stenosis, lumbar region without neurogenic claudication; R91.8 Other nonspecific abnormal finding of lung field; F32.A Depression, unspecified; K21.9 Gastro-esophageal reflux disease without esophagitis; Z90.49 Acquired absence of other specified parts of digestive tract; Z79.890 Hormone replacement therapy; Z79.899 Other long term (current) drug therapy; Z88.2 Allergy status to sulfonamides; Z88.5 Allergy status to narcotic agent; Z88.8 Allergy status to other drugs, medicaments and biological substances; Z20.822 Contact with and (suspected) exposure to COVID-19; Z90.79 Acquired absence of other genital organ(s); I50.33 Acute on chronic diastolic (congestive) heart failure

== ENCOUNTER 2023-06-10 01:05 | Emergency (ER) | payer OTHER ==
[~2023-06-10] VITALS: Ht 152.4 cm; Wt 103.1 kg
[~2023-06-10 01:05] MED LIST changes: +FLUT1BLS8 IH; +LOPE1CAP5 PO; +TIZA2TA PO; +TORS20TA2 PO; +TREL1AER PO; +VENTAER INH
[2023-06-10] MEDS: IPRATROPIUM 0.5MG/ALBUTEROL 2.5MG INH SOL UD 3ML (DUONEB) NEB PRN ×3 (01:25→01:28)
[2023-06-10 01:32] VITALS: TEMP 97.3
[2023-06-10 02:20] LABS: VENOUS BASE EXCESS -0.5 (-2.0-2.0); VENOUS HCO3 24.9 MMOL/L (23.0-27.0); VENOUS PARTIAL PRESSURE CO2 43.6 mmHg (38.0-50.0); VENOUS PH 7.375 UNITS (7.330-7.430); VENOUS TOTAL CO2 26.3 MMOL/L (24.0-28.0)
[2023-06-10 02:24] LABS: BASO % 0.3 % (0.0-1.0); EOS # 0.1 10^3/uL (0.0-0.5); EOS % 0.6 % (0.0-3.0); HEMATOCRIT 32.6 % (36.0-47.0); HEMOGLOBIN 10.3 g/dl (12.0-15.5); LYMPH # 0.4 10^3/uL (1.5-5.0); LYMPH % 3.8 % (24.0-44.0); MEAN CORPUSCULAR HEMOGLOBIN 29.4 pg (27.0-33.0); MEAN CORPUSCULAR HGB CONC 31.6 g/dl (32.0-36.5); MEAN CORPUSCULAR VOLUME 93.1 fl (80.0-96.0); MONO # 0.7 10^3/uL (0.0-0.8); MONO % 6.4 % (2.0-8.0); NEUTROPHILS # 10.1 10^3/uL (1.5-8.5); NEUTROPHILS % 88.2 % (36.0-66.0); PLATELET COUNT, AUTOMATED 151 10^3/uL (150-450); WHITE BLOOD COUNT 11.5 10^3/uL (4.0-10.0)
[2023-06-10 02:42] LABS: VENOUS O2 SATURATION 98.3 % (60.0-80.0)
[2023-06-10 02:50] LABS: ALKALINE PHOSPHATASE 107 U/L (46-116); ALT/SGPT 11 U/L (7.0-40); AST/SGOT 15 U/L (<34); BILIRUBIN,DIRECT 0.2 MG/DL (<0.4); BILIRUBIN,TOTAL 0.6 MG/DL (0.3-1.2); BLOOD UREA NITROGEN 46 MG/DL (9-23); CALCIUM LEVEL 10.1 MG/DL (8.3-10.6); CARBON DIOXIDE LEVEL 24 MMOL/L (20-31); CHLORIDE LEVEL 95 MMOL/L (98-107); CK-MB VALUE MASS < 1.0 NG/ML (<3.6); CREATININE FOR GFR 5.61 MG/DL (0.55-1.30); GLOMERULAR FILTRATION RATE 8.2 (>45); GLUCOSE, FASTING 228 MG/DL (74-106); POTASSIUM SERUM 4.9 MMOL/L (3.5-5.1); SODIUM LEVEL 131 MMOL/L (136-145); TOTAL PROTEIN 6.9 G/DL (5.7-8.2)
[2023-06-10 02:52] LABS: THYROID STIMULATING HORMONE 9.346 uIU/ML (0.55-4.78)
[2023-06-10 02:53] LABS: CPK CREATINE PHOSPHOKINASE 34 U/L (34-145); MB/CK RELATIVE INDEX 2.94 (< OR =4)
[2023-06-10 03:57] LABS: CK-MB VALUE MASS < 1.0 NG/ML (<3.6)
[2023-06-10 03:59] LABS: CPK CREATINE PHOSPHOKINASE 27 U/L (34-145)
[2023-06-10] MEDS ORDERED: IPRATROPIUM 0.5MG/ALBUTEROL 2.5MG INH SOL UD 3ML (DUONEB) NEB ONE (04:40)
[2023-06-10] MEDS ORDERED: BLOO-85 XX (05:03)
[2023-06-10 05:31] VITALS: BP 186/92
[2023-06-10 05:35] VITALS: O2SAT 97
== END 2023-06-10 06:35 | disposition home or self-care (01) ==
LOC: M ED 01:05 → EDBD 01:05 → M ED 06:35
DX: R06.00 Dyspnea, unspecified (principal); R00.0 Tachycardia, unspecified; I44.4 Left anterior fascicular block; I45.81 Long QT syndrome; N18.6 End stage renal disease; E78.5 Hyperlipidemia, unspecified; K21.9 Gastro-esophageal reflux disease without esophagitis; J44.9 Chronic obstructive pulmonary disease, unspecified; I10 Essential (primary) hypertension; Z88.2 Allergy status to sulfonamides; Z88.5 Allergy status to narcotic agent; Z88.6 Allergy status to analgesic agent; Z88.8 Allergy status to other drugs, medicaments and biological substances; Z79.52 Long term (current) use of systemic steroids; Z79.02 Long term (current) use of antithrombotics/antiplatelets; Z79.899 Other long term (current) drug therapy

== ENCOUNTER 2023-06-10 23:58 | Emergency (ER) | payer OTHER ==
[~2023-06-10] VITALS: Ht 171.4 cm; Wt 98.2 kg
[~2023-06-10 23:58] MED LIST changes: +BLOO-85 XX
[2023-06-11 00:28] VITALS: TEMP 98.1
[2023-06-11 00:30] VITALS: BP 172/81
[2023-06-11 01:03] LABS: BASO % 0.2 % (0.0-1.0); EOS % 0.1 % (0.0-3.0); HEMATOCRIT 28.5 % (36.0-47.0); HEMOGLOBIN 9.1 g/dl (12.0-15.5); LYMPH # 0.6 10^3/uL (1.5-5.0); LYMPH % 5.2 % (24.0-44.0); MEAN CORPUSCULAR HEMOGLOBIN 29.3 pg (27.0-33.0); MEAN CORPUSCULAR HGB CONC 31.9 g/dl (32.0-36.5); MEAN CORPUSCULAR VOLUME 91.6 fl (80.0-96.0); MONO # 0.8 10^3/uL (0.0-0.8); NEUTROPHILS # 9.7 10^3/uL (1.5-8.5); NEUTROPHILS % 86.2 % (36.0-66.0); PLATELET COUNT, AUTOMATED 166 10^3/uL (150-450); RED BLOOD COUNT 3.11 10^6/uL (4.00-5.40); WHITE BLOOD COUNT 11.2 10^3/uL (4.0-10.0)
[2023-06-11 01:28] LABS: CALCIUM LEVEL 9.7 MG/DL (8.3-10.6); CK-MB VALUE MASS 1.1 NG/ML (<3.6); CREATININE FOR GFR 7.1 MG/DL (0.55-1.30); GLOMERULAR FILTRATION RATE 6.2 (>45); MB/CK RELATIVE INDEX 3.14 (< OR =4); POTASSIUM SERUM 5.1 MMOL/L (3.5-5.1)
[2023-06-11] MEDS ORDERED: traMADol 50 MG TAB PO ONE (01:35)
[2023-06-11 01:38] VITALS: O2SAT 94
[2023-06-11] MEDS ORDERED: ALPRAZolam 0.5 MG TAB PO ONE (02:10)
== END 2023-06-11 02:51 | disposition home or self-care (01) ==
LOC: EDBD 23:58 → M ED 23:58
DX: R06.02 Shortness of breath (principal); F41.9 Anxiety disorder, unspecified; I45.10 Unspecified right bundle-branch block; I45.81 Long QT syndrome; I10 Essential (primary) hypertension; E78.5 Hyperlipidemia, unspecified; E03.9 Hypothyroidism, unspecified; J44.9 Chronic obstructive pulmonary disease, unspecified; Z86.79 Personal history of other diseases of the circulatory system; Z88.2 Allergy status to sulfonamides; Z88.5 Allergy status to narcotic agent; Z88.6 Allergy status to analgesic agent; Z88.8 Allergy status to other drugs, medicaments and biological substances; Z79.52 Long term (current) use of systemic steroids; Z79.02 Long term (current) use of antithrombotics/antiplatelets; Z79.899 Other long term (current) drug therapy

== ENCOUNTER 2023-06-13 04:00 | Emergency (ER) | payer OTHER ==
[2023-06-13] MEDS ORDERED: IPRATROPIUM 0.5MG/ALBUTEROL 2.5MG INH SOL UD 3ML (DUONEB) NEB ONE ×2 (04:25→06:35)
[2023-06-13 05:04] LABS: BASO % 0.5 % (0.0-1.0); EOS # 0.1 10^3/uL (0.0-0.5); HEMATOCRIT 31.8 % (36.0-47.0); HEMOGLOBIN 9.8 g/dl (12.0-15.5); LYMPH # 0.6 10^3/uL (1.5-5.0); LYMPH % 7.3 % (24.0-44.0); MEAN CORPUSCULAR HEMOGLOBIN 29.4 pg (27.0-33.0); MEAN CORPUSCULAR HGB CONC 30.8 g/dl (32.0-36.5); MEAN CORPUSCULAR VOLUME 95.5 fl (80.0-96.0); MONO # 0.6 10^3/uL (0.0-0.8); MONO % 7.2 % (2.0-8.0); NEUTROPHILS # 7.2 10^3/uL (1.5-8.5); NEUTROPHILS % 83.5 % (36.0-66.0); PLATELET COUNT, AUTOMATED 202 10^3/uL (150-450); RED BLOOD COUNT 3.33 10^6/uL (4.00-5.40); WHITE BLOOD COUNT 8.6 10^3/uL (4.0-10.0)
[2023-06-13 05:25] LABS: ALBUMIN 2.9 G/DL (3.2-5.2); BILIRUBIN,DIRECT 0.2 MG/DL (<0.4); BILIRUBIN,TOTAL 0.5 MG/DL (0.3-1.2); CALCIUM LEVEL 9.9 MG/DL (8.3-10.6); CREATININE FOR GFR 6.47 MG/DL (0.55-1.30); GLOMERULAR FILTRATION RATE 6.9 (>45); MB/CK RELATIVE INDEX 4.34 (< OR =4); POTASSIUM SERUM 5.2 MMOL/L (3.5-5.1); TOTAL PROTEIN 6.5 G/DL (5.7-8.2)
[2023-06-13] MEDS ORDERED: FUROSEMIDE 100MG/10ML VIAL IV ONE (06:35)
[2023-06-13 07:17] VITALS: BP 182/81
[2023-06-13 07:21] LABS: CK-MB VALUE MASS < 1.0 NG/ML (<3.6)
[2023-06-13 07:22] LABS: CPK CREATINE PHOSPHOKINASE 17 U/L (34-145); MB/CK RELATIVE INDEX 5.88 (< OR =4)
[2023-06-13 07:39] VITALS: TEMP 96.8
[2023-06-13 08:17] VITALS: O2SAT 89
== END 2023-06-13 08:32 | disposition home or self-care (01) ==
LOC: M ED 04:00 → EDBD 04:00 → M ED 08:32
DX: I50.22 Chronic systolic (congestive) heart failure (principal); N18.6 End stage renal disease; J81.1 Chronic pulmonary edema; J96.11 Chronic respiratory failure with hypoxia; E11.9 Type 2 diabetes mellitus without complications; J44.9 Chronic obstructive pulmonary disease, unspecified; Z88.2 Allergy status to sulfonamides; Z88.5 Allergy status to narcotic agent; Z88.6 Allergy status to analgesic agent; Z88.8 Allergy status to other drugs, medicaments and biological substances; Z79.52 Long term (current) use of systemic steroids; Z79.02 Long term (current) use of antithrombotics/antiplatelets; Z79.891 Long term (current) use of opiate analgesic; Z79.899 Other long term (current) drug therapy
CPT/HCPCS: 71045; 80048; 80076; 82550; 82553; 83880; 85025; 87486; 87581; 87633; 87798; 93005; 93041; 94640; 94760; 96374; 99285; J1940

== ENCOUNTER 2023-06-17 22:53 | Emergency (ER) | payer OTHER ==
[~2023-06-17] VITALS: Ht 171.4 cm; Wt 98.2 kg
[2023-06-18] MEDS ORDERED: IPRATROPIUM 0.5MG/ALBUTEROL 2.5MG INH SOL UD 3ML (DUONEB) NEB ONE (02:05)
[2023-06-18] MEDS ORDERED: ALPRAZolam 0.25 MG TAB PO ONE (02:15)
[2023-06-18] MEDS ORDERED: XANA0.25 PO (02:16)
[2023-06-18] MEDS ORDERED: IPRA0.00 INH (02:36)
[2023-06-18 03:08] VITALS: BP 181/77; TEMP 97.1; O2SAT 97
== END 2023-06-18 03:06 | disposition home or self-care (01) ==
LOC: M ED 22:53 → EDBD 22:53 → M ED 06-18 03:06
DX: R06.00 Dyspnea, unspecified (principal); F41.1 Generalized anxiety disorder; J44.9 Chronic obstructive pulmonary disease, unspecified; N18.6 End stage renal disease; K76.0 Fatty (change of) liver, not elsewhere classified; Z88.2 Allergy status to sulfonamides; Z88.1 Allergy status to other antibiotic agents; Z88.5 Allergy status to narcotic agent; Z88.9 Allergy status to unspecified drugs, medicaments and biological substances; Z79.52 Long term (current) use of systemic steroids; Z79.02 Long term (current) use of antithrombotics/antiplatelets; Z79.899 Other long term (current) drug therapy; Z79.891 Long term (current) use of opiate analgesic

== ENCOUNTER 2023-06-21 00:35 | Inpatient (IN) | payer OTHER ==
[~2023-06-21] VITALS: Ht 170.2 cm; Wt 100.8 kg
[~2023-06-21 00:35] MED LIST changes: +XANA0.25 PO
[2023-06-21 02:14] LABS: VENOUS BASE EXCESS -3.3 (-2.0-2.0); VENOUS HCO3 22.2 MMOL/L (23.0-27.0); VENOUS O2 SATURATION 66.4 % (60.0-80.0); VENOUS PARTIAL PRESSURE CO2 41.7 mmHg (38.0-50.0); VENOUS PARTIAL PRESSURE O2 40.1 mmHg (30.0-50.0); VENOUS PH 7.344 UNITS (7.330-7.430); VENOUS STANDARD HCO3 21.1 MMOL/L; VENOUS TOTAL CO2 23.5 MMOL/L (24.0-28.0)
[2023-06-21 02:23] LABS: BASO # 0.1 10^3/uL (0.0-0.2); BASO % 0.6 % (0.0-1.0); EOS # 0.1 10^3/uL (0.0-0.5); EOS % 1.1 % (0.0-3.0); HEMATOCRIT 31.4 % (36.0-47.0); HEMOGLOBIN 9.7 g/dl (12.0-15.5); LYMPH # 0.6 10^3/uL (1.5-5.0); LYMPH % 7.2 % (24.0-44.0); MEAN CORPUSCULAR HGB CONC 30.9 g/dl (32.0-36.5); MEAN CORPUSCULAR VOLUME 93.7 fl (80.0-96.0); MONO # 0.5 10^3/uL (0.0-0.8); MONO % 6.3 % (2.0-8.0); NEUTROPHILS # 6.9 10^3/uL (1.5-8.5); NEUTROPHILS % 84.4 % (36.0-66.0); PLATELET COUNT, AUTOMATED 199 10^3/uL (150-450); RED BLOOD COUNT 3.35 10^6/uL (4.00-5.40); WHITE BLOOD COUNT 8.2 10^3/uL (4.0-10.0)
[2023-06-21 02:55] LABS: ALBUMIN 3.4 G/DL (3.2-5.2); BILIRUBIN,DIRECT 0.1 MG/DL (<0.4); BILIRUBIN,TOTAL 0.5 MG/DL (0.3-1.2); CALCIUM LEVEL 10.6 MG/DL (8.3-10.6); CK-MB VALUE MASS 1.3 NG/ML (<3.6); CREATININE FOR GFR 8.66 MG/DL (0.55-1.30); MB/CK RELATIVE INDEX 4.33 (< OR =4); POTASSIUM SERUM 6.7 MMOL/L (3.5-5.1); THYROID STIMULATING HORMONE 9.869 uIU/ML (0.55-4.78); TOTAL PROTEIN 7.4 G/DL (5.7-8.2)
[2023-06-21] MEDS ORDERED: PATIROMER SORBITEX CALCIUM 8.4 GM POWDER PACKET (VELTASSA) PO ONE (03:20)
[2023-06-21] MEDS ORDERED: HumuLIN R (REGULAR) INSULIN (NovoLIN R) **100U/ML** PER UNIT IV ONE (03:20)
[2023-06-21] MEDS ORDERED: DEXTROSE 50% 50ML SYRINGE IV ONE (03:20)
[2023-06-21] MEDS ORDERED: CALCIUM GLUCONATE 1,000MG/10ML VIAL (100MG/ML) IV ONE (03:20)
[2023-06-21] MEDS ORDERED: SODIUM BICARBONATE 8.4% INJ 50ML SYRINGE IV ONE (03:20)
[2023-06-21] MEDS: IPRATROPIUM 0.5MG/ALBUTEROL 2.5MG INH SOL UD 3ML (DUONEB) NEB PRN ×3 (04:09→04:14)
[2023-06-21] MEDS ORDERED: IPRATROPIUM 0.5MG/ALBUTEROL 2.5MG INH SOL UD 3ML (DUONEB) NEB PRN ×2 (05:00→09:55)
[2023-06-21] MEDS ORDERED: SODIUM CHLORIDE 0.9% 1000ML IV PRN (06:30)
[2023-06-21] MEDS ORDERED: HEPARIN 1,000UNITS/ML 10ML VIAL (FOR RADIOLOGY & DIALYSIS ONLY) XX SCH (06:30)
[2023-06-21] MEDS ORDERED: HEPARIN 1,000UNITS/ML 10ML VIAL (FOR RADIOLOGY & DIALYSIS ONLY) IV PRN (06:30)
[2023-06-21] MEDS ORDERED: LIDOCAINE 1% SDV 5ML VIAL SC PRN (06:30)
[2023-06-21] MEDS ORDERED: RENV2.4P PO (06:31)
[2023-06-21] MEDS ORDERED: METO1TAB7 PO (06:31)
[2023-06-21] MEDS ORDERED: HYDR-3910 PO (06:31)
[2023-06-21] MEDS ORDERED: LIDO5TD TOP (06:31)
[2023-06-21] MEDS ORDERED: IPRA0.00 INH (06:31)
[2023-06-21] MEDS ORDERED: INSU100V6 SC (06:31)
[2023-06-21] MEDS ORDERED: TORS20TA2 PO (06:31)
[2023-06-21] MEDS ORDERED: LIDO30CR18 TOP (06:31)
[2023-06-21] MEDS ORDERED: ALPR0.25 PO (06:31)
[2023-06-21] MEDS ORDERED: BUDE0.5S6 INH (06:31)
[2023-06-21] MEDS ORDERED: SYNT175T2 PO (06:31)
[2023-06-21] MEDS ORDERED: ALBU8.5H INH (06:31)
[2023-06-21] MEDS ORDERED: FLUT1BLS8 INH (06:31)
[2023-06-21] MEDS ORDERED: TRAM100T21 PO (06:31)
[2023-06-21] MEDS: HEPARIN SOD (PORCINE) 5000UNITS/ML 1ML VIAL/SYRINGE SC SCH ×3 (06:33→21:43)
[2023-06-21] MEDS ORDERED: HOME MED LIST COMPLETE! XX SCH (06:35)
[2023-06-21 08:00] VITALS: O2SAT 98
[2023-06-21] MEDS ORDERED: ALPRAZolam 0.25 MG TAB PO PRN (09:55)
[2023-06-21] MEDS ORDERED: LIDOCAINE 5% (LIDODERM) PATCH TOP PRN (09:55)
[2023-06-21] MEDS ORDERED: DEXTROSE 50% 50ML SYRINGE IV PRN (09:55)
[2023-06-21] MEDS ORDERED: GLUCAGON INJ 1MG VIAL SC PRN (09:55)
[2023-06-21] MEDS ORDERED: GLUCOSE 4GM CHEW TABLET PO PRN (09:55)
[2023-06-21] MEDS: INSULIN LISPRO (NovoLOG) PER UNIT SC SCH ×2 (12:00→18:32)
[2023-06-21] MEDS: (RENVELA) SEVELAMER **CARBONate** 800 MG TAB PO SCH ×2 (12:30→18:32)
[2023-06-21 13:46] LABS: BASO # 0.1 10^3/uL (0.0-0.2); BASO % 0.9 % (0.0-1.0); EOS # 0.1 10^3/uL (0.0-0.5); EOS % 1.7 % (0.0-3.0); HEMATOCRIT 30.9 % (36.0-47.0); HEMOGLOBIN 9.6 g/dl (12.0-15.5); LYMPH # 0.5 10^3/uL (1.5-5.0); LYMPH % 9.3 % (24.0-44.0); MEAN CORPUSCULAR HEMOGLOBIN 28.4 pg (27.0-33.0); MEAN CORPUSCULAR HGB CONC 31.1 g/dl (32.0-36.5); MEAN CORPUSCULAR VOLUME 91.4 fl (80.0-96.0); MONO # 0.4 10^3/uL (0.0-0.8); MONO % 7.4 % (2.0-8.0); NEUTROPHILS # 4.3 10^3/uL (1.5-8.5); NEUTROPHILS % 80.3 % (36.0-66.0); PLATELET COUNT, AUTOMATED 198 10^3/uL (150-450); RED BLOOD COUNT 3.38 10^6/uL (4.00-5.40); WHITE BLOOD COUNT 5.4 10^3/uL (4.0-10.0)
[2023-06-21 14:15] LABS: ALBUMIN 3.4 G/DL (3.2-5.2); CALCIUM LEVEL 10.6 MG/DL (8.3-10.6); CREATININE FOR GFR 4.08 MG/DL (0.55-1.30); FREE T4 1.53 NG/DL (0.89-1.76); GLOMERULAR FILTRATION RATE 11.8 (>45); PHOSPHORUS LEVEL 6.2 MG/DL (2.4-5.1); POTASSIUM SERUM 4.1 MMOL/L (3.5-5.1)
[2023-06-21 14:42] VITALS: BP 158/72; TEMP 97.1; O2SAT 98
[2023-06-21] MEDS: **hydrALAZINE HCL** 25 MG TAB PO SCH ×2 (14:57→21:43)
[2023-06-21 16:27] VITALS: BP 158/72; TEMP 97.2; O2SAT 93
[2023-06-21] MEDS ORDERED: PILL CUTTER 1 EACH XX ONE (18:33)
[2023-06-21] MEDS: SYMBICORT 160/4.5MCG INHALER 6GM INH SCH (19:16)
[2023-06-21] MEDS ORDERED: INSULIN LISPRO (NovoLOG) PER UNIT SC SCH (21:00)
[2023-06-21] MEDS ORDERED: traMADol ER 100MG TABLET (ULTRAM ER) PO SCH (21:00)
[2023-06-21] MEDS ORDERED: ATORVASTATIN 10 MG TAB PO SCH (21:00)
[2023-06-21 21:38] VITALS: BP 140/77; TEMP 96.7; O2SAT 97
[2023-06-21] MEDS: DULoxetine 30MG CAPSULE (CYMBALTA) PO SCH (21:42)
[2023-06-21] MEDS: LACTOBACILLUS ACIDOPHILUS CAP (BACID) PO SCH (21:42)
[2023-06-21] MEDS: busPIRone 5 MG TAB PO SCH (22:05)
[2023-06-21 23:41] VITALS: BP 176/72; TEMP 97.4; O2SAT 98
[2023-06-22] VITALS: BP 160/68
[2023-06-22 04:00] VITALS: BP 156/80; TEMP 96.6; O2SAT 99
[2023-06-22] MEDS ORDERED: LIDOCAINE 1% SDV 5ML VIAL SC PRN (06:00)
[2023-06-22] MEDS ORDERED: SODIUM CHLORIDE 0.9% 1000ML IV PRN (06:00)
[2023-06-22] MEDS ORDERED: LEVOTHYROXINE 150MCG TABLET (0.15MG) PO SCH (06:00)
[2023-06-22] MEDS ORDERED: HEPARIN 1,000UNITS/ML 10ML VIAL (FOR RADIOLOGY & DIALYSIS ONLY) XX SCH (06:00)
[2023-06-22] MEDS ORDERED: LEVOTHYROXINE 25MCG TABLET (0.025MG) PO SCH (06:00)
[2023-06-22] MEDS: HEPARIN SOD (PORCINE) 5000UNITS/ML 1ML VIAL/SYRINGE SC SCH (06:08)
[2023-06-22 07:05] LABS: ALBUMIN 3.1 G/DL (3.2-5.2); BILIRUBIN,TOTAL 0.5 MG/DL (0.3-1.2); CALCIUM LEVEL 9.9 MG/DL (8.3-10.6); GLOMERULAR FILTRATION RATE 7.6 (>45); POTASSIUM SERUM 5.2 MMOL/L (3.5-5.1); TOTAL PROTEIN 6.8 G/DL (5.7-8.2)
[2023-06-22] MEDS: INSULIN LISPRO (NovoLOG) PER UNIT SC SCH ×2 (07:30→12:04)
[2023-06-22 07:33] VITALS: BP 154/72; TEMP 97.6; O2SAT 97
[2023-06-22] MEDS: SYMBICORT 160/4.5MCG INHALER 6GM INH SCH (07:36)
[2023-06-22] MEDS: (RENVELA) SEVELAMER **CARBONate** 800 MG TAB PO SCH ×2 (07:51→12:05)
[2023-06-22] MEDS ORDERED: TIOTROPIUM INHALER/CAPSULE (SPIRIVA) INH SCH (08:00)
[2023-06-22] MEDS: **hydrALAZINE HCL** 25 MG TAB PO SCH (09:00)
[2023-06-22] MEDS ORDERED: TORSEMIDE 20 MG TAB PO SCH (09:00)
[2023-06-22] MEDS ORDERED: CETIRIZINE (ZyrTEC) 10 MG TAB PO SCH (09:00)
[2023-06-22] MEDS ORDERED: METOPROLOL SUCC (TopROL XL) 50MG **XL** TAB PO SCH (09:00)
[2023-06-22] MEDS: DULoxetine 30MG CAPSULE (CYMBALTA) PO SCH (10:53)
[2023-06-22 10:54] VITALS: BP 156/80
[2023-06-22] MEDS: LACTOBACILLUS ACIDOPHILUS CAP (BACID) PO SCH (10:54)
[2023-06-22] MEDS: busPIRone 5 MG TAB PO SCH (10:54)
[2023-06-22] MEDS ORDERED: ATOR1TAB19 PO (11:57)
[2023-06-22 12:00] VITALS: BP 152/62; TEMP 98; O2SAT 98
== END 2023-06-22 13:30 | disposition home or self-care (01) | DRG 194 ==
LOC: M ED 00:35 → EDBD 00:35 → M ED INP 05:34 → M PCU 16:21
PROVIDERS: ADMIT Family Medicine; ATTEND Family Medicine
PROC: 5A1D70Z Performance of Urinary Filtration, Intermittent, Less than 6 Hours Per Day (ICD-10-PCS; principal; 2023-06-21)
DX: I13.2 Hypertensive heart and chronic kidney disease with heart failure and with stage 5 chronic kidney disease, or end stage renal disease (principal); J96.21 Acute and chronic respiratory failure with hypoxia; N18.6 End stage renal disease; I27.20 Pulmonary hypertension, unspecified; E11.22 Type 2 diabetes mellitus with diabetic chronic kidney disease; Z99.81 Dependence on supplemental oxygen; E87.5 Hyperkalemia; D63.1 Anemia in chronic kidney disease; E78.5 Hyperlipidemia, unspecified; J44.9 Chronic obstructive pulmonary disease, unspecified; E03.9 Hypothyroidism, unspecified; K21.9 Gastro-esophageal reflux disease without esophagitis; G47.33 Obstructive sleep apnea (adult) (pediatric); F32.A Depression, unspecified; G89.29 Other chronic pain; R74.01 Elevation of levels of liver transaminase levels; F41.9 Anxiety disorder, unspecified; I16.0 Hypertensive urgency; I35.0 Nonrheumatic aortic (valve) stenosis; Z99.2 Dependence on renal dialysis; Z90.79 Acquired absence of other genital organ(s); Z90.49 Acquired absence of other specified parts of digestive tract; Z87.891 Personal history of nicotine dependence; Z79.4 Long term (current) use of insulin; Z79.890 Hormone replacement therapy; Z79.899 Other long term (current) drug therapy; Z88.2 Allergy status to sulfonamides; Z88.5 Allergy status to narcotic agent; Z88.6 Allergy status to analgesic agent; Z88.8 Allergy status to other drugs, medicaments and biological substances; Z20.822 Contact with and (suspected) exposure to COVID-19; I50.33 Acute on chronic diastolic (congestive) heart failure

== ENCOUNTER 2023-06-26 08:04 | Emergency (ER) | payer OTHER ==
[~2023-06-26] VITALS: Ht 170.2 cm; Wt 98.9 kg
[~2023-06-26 08:04] MED LIST changes: +ALPR0.25 PO; +INSU100V6 SC; +SYNT175T2 PO
[2023-06-26] MEDS ORDERED: ALPRAZolam 0.25 MG TAB PO ONE (08:45)
[2023-06-26 09:37] LABS: VENOUS BASE EXCESS 5.8 (-2.0-2.0); VENOUS HCO3 30.6 MMOL/L (23.0-27.0); VENOUS O2 SATURATION 78.6 % (60.0-80.0); VENOUS PARTIAL PRESSURE CO2 45.6 mmHg (38.0-50.0); VENOUS PARTIAL PRESSURE O2 44.8 mmHg (30.0-50.0); VENOUS PH 7.444 UNITS (7.330-7.430); VENOUS STANDARD HCO3 29.4 MMOL/L
[2023-06-26 09:40] LABS: BASO % 0.4 % (0.0-1.0); EOS % 0.3 % (0.0-3.0); HEMATOCRIT 27.5 % (36.0-47.0); HEMOGLOBIN 8.6 g/dl (12.0-15.5); LYMPH # 0.5 10^3/uL (1.5-5.0); LYMPH % 6.6 % (24.0-44.0); MEAN CORPUSCULAR HEMOGLOBIN 28.7 pg (27.0-33.0); MEAN CORPUSCULAR HGB CONC 31.3 g/dl (32.0-36.5); MEAN CORPUSCULAR VOLUME 91.7 fl (80.0-96.0); MONO # 0.4 10^3/uL (0.0-0.8); MONO % 4.8 % (2.0-8.0); NEUTROPHILS # 6.6 10^3/uL (1.5-8.5); NEUTROPHILS % 87.4 % (36.0-66.0); PLATELET COUNT, AUTOMATED 180 10^3/uL (150-450); WHITE BLOOD COUNT 7.6 10^3/uL (4.0-10.0)
[2023-06-26 09:54] LABS: INR 1.06; PROTHROMBIN TIME 13.5 SECONDS (12.5-14.5)
[2023-06-26 10:07] LABS: FREE T4 1.27 NG/DL (0.89-1.76)
[2023-06-26 10:12] LABS: MB/CK RELATIVE INDEX 3.44 (< OR =4)
[2023-06-26 10:13] LABS: ALBUMIN 3.1 G/DL (3.2-5.2); BILIRUBIN,DIRECT 0.1 MG/DL (<0.4); BILIRUBIN,TOTAL 0.4 MG/DL (0.3-1.2); CALCIUM LEVEL 9.4 MG/DL (8.3-10.6); CREATININE FOR GFR 4.49 MG/DL (0.55-1.30); GLOMERULAR FILTRATION RATE 10.6 (>45); POTASSIUM SERUM 3.7 MMOL/L (3.5-5.1); TOTAL PROTEIN 6.7 G/DL (5.7-8.2)
[2023-06-26 10:15] LABS: THYROID STIMULATING HORMONE 3.497 uIU/ML (0.55-4.78)
[2023-06-26 11:18] LABS: CK-MB VALUE MASS < 1.0 NG/ML (<3.6)
[2023-06-26 11:25] LABS: CPK CREATINE PHOSPHOKINASE 26 U/L (34-145); MB/CK RELATIVE INDEX 3.84 (< OR =4)
[2023-06-26 13:05] LABS: CK-MB VALUE MASS < 1.0 NG/ML (<3.6)
[2023-06-26 13:07] LABS: CPK CREATINE PHOSPHOKINASE 20 U/L (34-145)
[2023-06-26] MEDS ORDERED: IPRATROPIUM 0.5MG/ALBUTEROL 2.5MG INH SOL UD 3ML (DUONEB) NEB ONE (13:50)
[2023-06-26 15:00] VITALS: BP 162/74
[2023-06-26 15:04] VITALS: TEMP 98.6; O2SAT 94
== END 2023-06-26 16:09 | disposition left against medical advice (07) ==
LOC: EDBD 08:04 → M ED 08:04
DX: I50.22 Chronic systolic (congestive) heart failure (principal); I51.7 Cardiomegaly; I45.81 Long QT syndrome; E11.9 Type 2 diabetes mellitus without complications; I10 Essential (primary) hypertension; E78.5 Hyperlipidemia, unspecified; N18.6 End stage renal disease; E03.9 Hypothyroidism, unspecified; Z86.79 Personal history of other diseases of the circulatory system; Z87.891 Personal history of nicotine dependence; Z88.2 Allergy status to sulfonamides; Z88.5 Allergy status to narcotic agent; Z88.6 Allergy status to analgesic agent; Z88.8 Allergy status to other drugs, medicaments and biological substances; Z79.52 Long term (current) use of systemic steroids; Z79.02 Long term (current) use of antithrombotics/antiplatelets; Z79.899 Other long term (current) drug therapy

== ENCOUNTER 2023-06-28 02:26 | Emergency (ER) | payer OTHER ==
[~2023-06-28] VITALS: Ht 171.4 cm; Wt 90.9 kg
[2023-06-28 04:32] VITALS: BP 158/73; TEMP 97.5; O2SAT 100
[2023-06-28] MEDS: ALPRAZolam 0.25 MG TAB PO ONE (06:21)
== END 2023-06-28 06:35 | disposition home or self-care (01) ==
LOC: M ED 02:26
DX: F41.0 Panic disorder [episodic paroxysmal anxiety] (principal); I25.10 Atherosclerotic heart disease of native coronary artery without angina pectoris; J44.9 Chronic obstructive pulmonary disease, unspecified; N18.6 End stage renal disease; F41.1 Generalized anxiety disorder; Z88.2 Allergy status to sulfonamides; Z88.5 Allergy status to narcotic agent; Z88.8 Allergy status to other drugs, medicaments and biological substances; Z79.899 Other long term (current) drug therapy; Z79.51 Long term (current) use of inhaled steroids

== ENCOUNTER 2023-06-30 22:38 | Emergency (ER) | payer OTHER ==
[~2023-06-30] VITALS: Ht 170.2 cm; Wt 90.9 kg
[2023-06-30 22:53] VITALS: TEMP 98.3
[2023-07-01 01:19] LABS: BASO % 0.4 % (0.0-1.0); EOS # 0.1 10^3/uL (0.0-0.5); EOS % 1.3 % (0.0-3.0); HEMATOCRIT 25.5 % (36.0-47.0); LYMPH # 0.8 10^3/uL (1.5-5.0); LYMPH % 10.5 % (24.0-44.0); MEAN CORPUSCULAR HEMOGLOBIN 28.6 pg (27.0-33.0); MEAN CORPUSCULAR HGB CONC 31.4 g/dl (32.0-36.5); MEAN CORPUSCULAR VOLUME 91.1 fl (80.0-96.0); MONO # 0.5 10^3/uL (0.0-0.8); MONO % 6.7 % (2.0-8.0); NEUTROPHILS # 5.8 10^3/uL (1.5-8.5); NEUTROPHILS % 80.8 % (36.0-66.0); PLATELET COUNT, AUTOMATED 192 10^3/uL (150-450); WHITE BLOOD COUNT 7.2 10^3/uL (4.0-10.0)
[2023-07-01] MEDS ORDERED: ACETAMINOPHEN TAB 650MG DOSE (2X325MG) PO ONE (01:40)
[2023-07-01 01:58] LABS: BILIRUBIN,TOTAL 0.2 MG/DL (0.3-1.2); CALCIUM LEVEL 9.9 MG/DL (8.3-10.6); CREATININE FOR GFR 7.31 MG/DL (0.55-1.30); MAGNESIUM LEVEL 2.4 MG/DL (1.8-2.4); POTASSIUM SERUM 5.1 MMOL/L (3.5-5.1)
[2023-07-01 03:00] VITALS: BP 161/74; O2SAT 97
[2023-07-01] MEDS ORDERED: ATOR1TAB19 PO (23:29)
[2023-07-01] MEDS ORDERED: AMLO1TAB25 PO (23:29)
[2023-07-01] MEDS ORDERED: CINA30TA4 PO (23:29)
== END 2023-07-01 03:09 | disposition home or self-care (01) ==
LOC: M ED 22:38
DX: R07.9 Chest pain, unspecified (principal); R06.00 Dyspnea, unspecified; I10 Essential (primary) hypertension; E11.9 Type 2 diabetes mellitus without complications; J44.9 Chronic obstructive pulmonary disease, unspecified; E03.9 Hypothyroidism, unspecified; F32.A Depression, unspecified; E78.5 Hyperlipidemia, unspecified; N18.9 Chronic kidney disease, unspecified; Z88.2 Allergy status to sulfonamides; Z88.5 Allergy status to narcotic agent; Z88.6 Allergy status to analgesic agent; Z88.8 Allergy status to other drugs, medicaments and biological substances; Z79.52 Long term (current) use of systemic steroids; Z79.899 Other long term (current) drug therapy; Z79.4 Long term (current) use of insulin

== ENCOUNTER 2023-07-01 14:52 | Observation (INO) | payer OTHER ==
[~2023-07-01] VITALS: Ht 170.2 cm; Wt 99.3 kg
[~2023-07-01 14:52] MED LIST changes: +HYDR-161 PO; -HYDR10TAB PO
[2023-07-01 20:00] LABS: BASO % 0.6 % (0.0-1.0); EOS # 0.1 10^3/uL (0.0-0.5); EOS % 0.7 % (0.0-3.0); HEMATOCRIT 25.1 % (36.0-47.0); LYMPH # 0.7 10^3/uL (1.5-5.0); LYMPH % 9.7 % (24.0-44.0); MEAN CORPUSCULAR HEMOGLOBIN 28.9 pg (27.0-33.0); MEAN CORPUSCULAR HGB CONC 31.9 g/dl (32.0-36.5); MEAN CORPUSCULAR VOLUME 90.6 fl (80.0-96.0); MONO # 0.6 10^3/uL (0.0-0.8); MONO % 7.7 % (2.0-8.0); NEUTROPHILS # 5.8 10^3/uL (1.5-8.5); NEUTROPHILS % 80.9 % (36.0-66.0); PLATELET COUNT, AUTOMATED 201 10^3/uL (150-450); RED BLOOD COUNT 2.77 10^6/uL (4.00-5.40); WHITE BLOOD COUNT 7.1 10^3/uL (4.0-10.0)
[2023-07-01] MEDS ORDERED: IPRATROPIUM 0.5MG/ALBUTEROL 2.5MG INH SOL UD 3ML (DUONEB) NEB ONE (20:05)
[2023-07-01 20:32] LABS: CK-MB VALUE MASS 1.2 NG/ML (<3.6)
[2023-07-01 20:34] LABS: MB/CK RELATIVE INDEX 2.4 (< OR =4)
[2023-07-01 20:37] LABS: CALCIUM LEVEL 9.4 MG/DL (8.3-10.6); CREATININE FOR GFR 8.26 MG/DL (0.55-1.30); GLOMERULAR FILTRATION RATE 5.2 (>45); POTASSIUM SERUM 5.9 MMOL/L (3.5-5.1)
[2023-07-01] MEDS: SOD POLYSTYRENE SULFONATE SUSP 15GM 60ML UD PO ONE ×2 (21:00→21:46)
[2023-07-01] MEDS: INSULIN LISPRO (NovoLOG) PER UNIT SC SCH (21:00)
[2023-07-01] MEDS ORDERED: CALCIUM GLUCONATE 1,000 MG in D5W MINI-BAG PLUS 100 ML IV ONE (21:00)
[2023-07-01] MEDS ORDERED: GLUCOSE 4GM CHEW TABLET PO PRN (21:30)
[2023-07-01] MEDS ORDERED: MOM 30ML SUSPENSION UDC PO PRN (21:30)
[2023-07-01] MEDS ORDERED: DEXTROSE 50% 50ML SYRINGE IV PRN (21:30)
[2023-07-01] MEDS ORDERED: ACETAMINOPHEN TAB 650MG DOSE (2X325MG) PO PRN (21:30)
[2023-07-01] MEDS ORDERED: GLUCAGON INJ 1MG VIAL SC PRN (21:30)
[2023-07-01 22:10] LABS: PHOSPHORUS LEVEL 12.7 MG/DL (2.4-5.1)
[2023-07-01] MEDS ORDERED: oxyCODONE 5MG TAB PO PRN ×2 (22:35)
[2023-07-01] MEDS ORDERED: TORSEMIDE 20 MG TAB PO SCH (22:35)
[2023-07-01] MEDS ORDERED: ISOVUE-370 76% 100ML VIAL As Ordered ONE (22:36)
[2023-07-01 22:44] LABS: INR 1.26; PROTHROMBIN TIME 15.4 SECONDS (12.5-14.5)
[2023-07-01] MEDS ORDERED: TORSEMIDE 20 MG TAB PO ONE (22:50)
[2023-07-01] MEDS ORDERED: CINA30TA4 PO (23:29)
[2023-07-01] MEDS ORDERED: AMLO1TAB25 PO (23:29)
[2023-07-01] MEDS ORDERED: ATOR1TAB19 PO (23:29)
[2023-07-01] MEDS ORDERED: HOME MED LIST COMPLETE! XX SCH (23:30)
[2023-07-02] MEDS ORDERED: ALPRAZolam 0.25 MG TAB PO PRN (00:05)
[2023-07-02] MEDS ORDERED: LIDOCAINE 5% (LIDODERM) PATCH TOP PRN (00:15)
[2023-07-02] MEDS ORDERED: TORSEMIDE 20 MG TAB PO ONE (00:20)
[2023-07-02] MEDS: ONDANSETRON 4MG ORAL DISINTEGRATING TAB SL PRN ×2 (00:57→17:22)
[2023-07-02] MEDS: SOD POLYSTYRENE SULFONATE SUSP 15GM 60ML UD PO ONE (00:58)
[2023-07-02] MEDS: ACETAMINOPHEN 500 MG TAB PO SCH ×4 (00:59→17:15)
[2023-07-02] MEDS: METOPROLOL SUCC (TopROL XL) 50MG **XL** TAB PO SCH ×2 (01:00→21:46)
[2023-07-02] MEDS: **hydrALAZINE HCL** 25 MG TAB PO SCH ×4 (01:00→21:46)
[2023-07-02] MEDS: LEVOTHYROXINE 75MCG TABLET (0.075MG) PO SCH (05:56)
[2023-07-02] MEDS: LEVOTHYROXINE 100MCG TABLET (0.1MG) PO SCH (05:56)
[2023-07-02] MEDS: HEPARIN SOD (PORCINE) 5000UNITS/ML 1ML VIAL/SYRINGE SC SCH ×3 (05:58→21:45)
[2023-07-02] MEDS ORDERED: SODIUM CHLORIDE 0.9% 1000ML IV PRN (07:00)
[2023-07-02] MEDS ORDERED: LIDOCAINE 1% SDV 5ML VIAL SC PRN (07:00)
[2023-07-02] MEDS ORDERED: HEPARIN 1,000UNITS/ML 10ML VIAL (FOR RADIOLOGY & DIALYSIS ONLY) IV PRN (07:00)
[2023-07-02] MEDS ORDERED: HEPARIN 1,000UNITS/ML 10ML VIAL (FOR RADIOLOGY & DIALYSIS ONLY) XX SCH (07:00)
[2023-07-02] MEDS: INSULIN LISPRO (NovoLOG) PER UNIT SC SCH ×4 (07:50→21:00)
[2023-07-02] MEDS: BUDESONIDE 0.25 MG/2 ML INHALATION SUSPENSION INH SCH ×2 (08:00→20:40)
[2023-07-02] MEDS: ADVAIR HFA 115/21MCG INHALER INH SCH ×3 (08:00→20:39)
[2023-07-02] MEDS: IPRATROPIUM 0.5MG/ALBUTEROL 2.5MG INH SOL UD 3ML (DUONEB) NEB SCH ×5 (08:00→20:39)
[2023-07-02] MEDS: (RENVELA) SEVELAMER **CARBONate** 800 MG TAB PO SCH ×4 (08:00→17:15)
[2023-07-02 08:48] LABS: HEMATOCRIT 25.3 % (36.0-47.0); MEAN CORPUSCULAR HEMOGLOBIN 28.4 pg (27.0-33.0); MEAN CORPUSCULAR HGB CONC 31.6 g/dl (32.0-36.5); MEAN CORPUSCULAR VOLUME 89.7 fl (80.0-96.0); PLATELET COUNT, AUTOMATED 206 10^3/uL (150-450); RED BLOOD COUNT 2.82 10^6/uL (4.00-5.40); WHITE BLOOD COUNT 13.5 10^3/uL (4.0-10.0)
[2023-07-02] MEDS: LIDOCAINE 5% (LIDODERM) PATCH TD SCH (09:00)
[2023-07-02] MEDS ORDERED: TORSEMIDE 20 MG TAB PO SCH (09:00)
[2023-07-02] MEDS ORDERED: **hydrALAZINE HCL** 25 MG TAB PO SCH (09:00)
[2023-07-02] MEDS ORDERED: METOPROLOL SUCC (TopROL XL) 50MG **XL** TAB PO SCH (09:00)
[2023-07-02] MEDS: TORSEMIDE 20 MG TAB PO SCH ×2 (09:00→17:16)
[2023-07-02 09:32] LABS: ALBUMIN 2.9 G/DL (3.2-5.2); CREATININE FOR GFR 9.35 MG/DL (0.55-1.30); GLOMERULAR FILTRATION RATE 4.5 (>45); MAGNESIUM LEVEL 2.6 MG/DL (1.8-2.4); POTASSIUM SERUM 7.3 MMOL/L (3.5-5.1)
[2023-07-02] MEDS: LACTOBACILLUS ACIDOPHILUS CAP (BACID) PO SCH ×2 (13:08→21:46)
[2023-07-02] MEDS: DULoxetine 30MG CAPSULE (CYMBALTA) PO SCH ×2 (13:08→21:45)
[2023-07-02] MEDS: CETIRIZINE (ZyrTEC) 10 MG TAB PO SCH (13:09)
[2023-07-02] MEDS: busPIRone 5 MG TAB PO SCH ×2 (13:10→21:45)
[2023-07-02] MEDS: CINACALCET 30 MG TAB (SENSIPAR) PO SCH (13:10)
[2023-07-02 15:00] VITALS: BP 128/62; TEMP 97.7; O2SAT 92
[2023-07-02 20:14] VITALS: BP 142/66; TEMP 97.5; O2SAT 99
[2023-07-02] MEDS: ATORVASTATIN 10 MG TAB PO SCH (21:46)
[2023-07-03] MEDS: ACETAMINOPHEN 500 MG TAB PO SCH
[2023-07-03 05:34] VITALS: BP 151/68; TEMP 98.1; O2SAT 92
[2023-07-03] MEDS: LACTOBACILLUS ACIDOPHILUS CAP (BACID) PO SCH ×2 (06:11→20:46)
[2023-07-03] MEDS: HEPARIN SOD (PORCINE) 5000UNITS/ML 1ML VIAL/SYRINGE SC SCH ×3 (06:11→20:50)
[2023-07-03] MEDS: LEVOTHYROXINE 75MCG TABLET (0.075MG) PO SCH (06:11)
[2023-07-03] MEDS: CINACALCET 30 MG TAB (SENSIPAR) PO SCH (06:11)
[2023-07-03] MEDS: LEVOTHYROXINE 100MCG TABLET (0.1MG) PO SCH (06:11)
[2023-07-03] MEDS: CETIRIZINE (ZyrTEC) 10 MG TAB PO SCH (06:12)
[2023-07-03] MEDS: **hydrALAZINE HCL** 25 MG TAB PO SCH ×3 (06:12→20:49)
[2023-07-03] MEDS: busPIRone 5 MG TAB PO SCH ×2 (06:12→20:49)
[2023-07-03] MEDS: DULoxetine 30MG CAPSULE (CYMBALTA) PO SCH ×2 (06:12→20:49)
[2023-07-03] MEDS: (RENVELA) SEVELAMER **CARBONate** 800 MG TAB PO SCH ×3 (06:13→18:00)
[2023-07-03] MEDS: TORSEMIDE 20 MG TAB PO SCH ×2 (06:13→17:18)
[2023-07-03] MEDS ORDERED: HEPARIN 1,000UNITS/ML 10ML VIAL (FOR RADIOLOGY & DIALYSIS ONLY) IV PRN (07:00)
[2023-07-03] MEDS ORDERED: LIDOCAINE 1% SDV 5ML VIAL SC PRN (07:00)
[2023-07-03] MEDS ORDERED: HEPARIN 1,000UNITS/ML 10ML VIAL (FOR RADIOLOGY & DIALYSIS ONLY) XX SCH (07:00)
[2023-07-03] MEDS ORDERED: SODIUM CHLORIDE 0.9% 1000ML IV PRN (07:00)
[2023-07-03] MEDS: INSULIN LISPRO (NovoLOG) PER UNIT SC SCH ×4 (07:30→21:00)
[2023-07-03] MEDS: ONDANSETRON 4MG ORAL DISINTEGRATING TAB SL PRN ×2 (07:54→12:52)
[2023-07-03] MEDS: IPRATROPIUM 0.5MG/ALBUTEROL 2.5MG INH SOL UD 3ML (DUONEB) NEB SCH ×5 (08:00→20:18)
[2023-07-03] MEDS: BUDESONIDE 0.25 MG/2 ML INHALATION SUSPENSION INH SCH ×3 (08:00→20:18)
[2023-07-03] MEDS: ADVAIR HFA 115/21MCG INHALER INH SCH ×3 (08:00→20:18)
[2023-07-03] MEDS: LIDOCAINE 5% (LIDODERM) PATCH TD SCH (08:13)
[2023-07-03 08:55] LABS: HEMOGLOBIN 7.9 g/dl (12.0-15.5); MEAN CORPUSCULAR HEMOGLOBIN 28.4 pg (27.0-33.0); MEAN CORPUSCULAR HGB CONC 31.6 g/dl (32.0-36.5); MEAN CORPUSCULAR VOLUME 89.9 fl (80.0-96.0); PLATELET COUNT, AUTOMATED 153 10^3/uL (150-450); RED BLOOD COUNT 2.78 10^6/uL (4.00-5.40); WHITE BLOOD COUNT 7.7 10^3/uL (4.0-10.0)
[2023-07-03] MEDS ORDERED: DARBEPOETIN 100MCG/0.5ML *DIALYSIS* SYRINGE IV SCH (09:00)
[2023-07-03 09:23] LABS: ALBUMIN 2.8 G/DL (3.2-5.2); CALCIUM LEVEL 9.5 MG/DL (8.3-10.6); CREATININE FOR GFR 6.17 MG/DL (0.55-1.30); GLOMERULAR FILTRATION RATE 7.3 (>45); POTASSIUM SERUM 4.2 MMOL/L (3.5-5.1)
[2023-07-03] MEDS ORDERED: PILL CUTTER 1 EACH XX ONE (10:10)
[2023-07-03 14:00] VITALS: BP 143/65; TEMP 96.5; O2SAT 93
[2023-07-03 18:54] VITALS: BP 145/69; TEMP 97.1; O2SAT 95
[2023-07-03] MEDS: METOPROLOL SUCC (TopROL XL) 50MG **XL** TAB PO SCH (20:48)
[2023-07-03] MEDS: ATORVASTATIN 10 MG TAB PO SCH (20:49)
[2023-07-04] MEDS: LEVOTHYROXINE 100MCG TABLET (0.1MG) PO SCH (05:47)
[2023-07-04] MEDS: LEVOTHYROXINE 75MCG TABLET (0.075MG) PO SCH (05:47)
[2023-07-04] MEDS: HEPARIN SOD (PORCINE) 5000UNITS/ML 1ML VIAL/SYRINGE SC SCH ×2 (05:47→13:17)
[2023-07-04 06:23] LABS: HEMATOCRIT 28.3 % (36.0-47.0); HEMOGLOBIN 8.9 g/dl (12.0-15.5); MEAN CORPUSCULAR HEMOGLOBIN 28.4 pg (27.0-33.0); MEAN CORPUSCULAR HGB CONC 31.4 g/dl (32.0-36.5); MEAN CORPUSCULAR VOLUME 90.4 fl (80.0-96.0); PLATELET COUNT, AUTOMATED 188 10^3/uL (150-450); RED BLOOD COUNT 3.13 10^6/uL (4.00-5.40); WHITE BLOOD COUNT 7.1 10^3/uL (4.0-10.0)
[2023-07-04 06:45] LABS: ALBUMIN 2.8 G/DL (3.2-5.2); CREATININE FOR GFR 4.74 MG/DL (0.55-1.30); GLOMERULAR FILTRATION RATE 9.9 (>45); PHOSPHORUS LEVEL 5.7 MG/DL (2.4-5.1); POTASSIUM SERUM 3.6 MMOL/L (3.5-5.1)
[2023-07-04] MEDS: DULoxetine 30MG CAPSULE (CYMBALTA) PO SCH (08:22)
[2023-07-04] MEDS: INSULIN LISPRO (NovoLOG) PER UNIT SC SCH ×2 (08:22→13:30)
[2023-07-04] MEDS: (RENVELA) SEVELAMER **CARBONate** 800 MG TAB PO SCH ×3 (08:23→13:30)
[2023-07-04] MEDS: busPIRone 5 MG TAB PO SCH (08:23)
[2023-07-04] MEDS: LACTOBACILLUS ACIDOPHILUS CAP (BACID) PO SCH (08:23)
[2023-07-04] MEDS: CETIRIZINE (ZyrTEC) 10 MG TAB PO SCH (08:23)
[2023-07-04] MEDS: ONDANSETRON 4MG ORAL DISINTEGRATING TAB SL PRN (08:23)
[2023-07-04] MEDS: CINACALCET 30 MG TAB (SENSIPAR) PO SCH (08:23)
[2023-07-04] MEDS: LIDOCAINE 5% (LIDODERM) PATCH TD SCH (08:23)
[2023-07-04] MEDS: TORSEMIDE 20 MG TAB PO SCH ×2 (08:23→15:54)
[2023-07-04] MEDS: **hydrALAZINE HCL** 25 MG TAB PO SCH ×2 (08:25→15:55)
[2023-07-04] MEDS: IPRATROPIUM 0.5MG/ALBUTEROL 2.5MG INH SOL UD 3ML (DUONEB) NEB SCH ×3 (08:48→15:38)
[2023-07-04] MEDS: ADVAIR HFA 115/21MCG INHALER INH SCH (08:48)
[2023-07-04] MEDS: BUDESONIDE 0.25 MG/2 ML INHALATION SUSPENSION INH SCH (09:18)
[2023-07-04] MEDS ORDERED: ARTIDRO OP (11:12)
[2023-07-04 14:00] VITALS: BP 143/65; TEMP 98.2; O2SAT 100
[2023-07-04 15:55] VITALS: BP 143/65
[2023-07-04] MEDS ORDERED: ARTIFICIAL TEARS DROPS 15ML BTL (VISINE DRY RELIEF) OD SCH (16:00)
== END 2023-07-04 16:02 | disposition home or self-care (01) ==
LOC: M ED 14:52 → M ED INP 14:53 → INTOOBSV 21:27 → UNDOADMOB 21:27 → ENRESERV 07-02 13:52 → M ED INP 07-02 15:10 → M MSPAV 07-02 15:10
PROVIDERS: ADMIT Student in an Organized Health Care Education/Training Program; ATTEND Internal Medicine
DX: J96.21 Acute and chronic respiratory failure with hypoxia (principal); Z91.158 Patient's noncompliance with renal dialysis for other reason; Z91.148 Patient's other noncompliance with medication regimen for other reason; E87.79 Other fluid overload; N18.6 End stage renal disease; Z79.899 Other long term (current) drug therapy; Z88.2 Allergy status to sulfonamides; Z88.8 Allergy status to other drugs, medicaments and biological substances; Z88.5 Allergy status to narcotic agent; Z79.4 Long term (current) use of insulin
CPT/HCPCS: 36415; 71045; 71250; 74176; 80048; 80053; 80069; 82550; 82553; 83735; 83880; 84100; 85025; 85027; 85610; 87486; 87581; 87633; 87635; 87798; 93005; 93041; 94640; 94760; 96361; 96374; 99285; J0612; J0882; J1815

== ENCOUNTER 2023-07-14 21:21 | Emergency (ER) | payer OTHER ==
[~2023-07-14] VITALS: Ht 162.6 cm; Wt 100.0 kg
[~2023-07-14 21:21] MED LIST changes: +ARTIDRO OP; +CINA30TA4 PO
[2023-07-14 21:36] VITALS: TEMP 97.1
[2023-07-14 22:24] LABS: VENOUS BASE EXCESS 2.8 (-2.0-2.0); VENOUS HCO3 27.5 MMOL/L (23.0-27.0); VENOUS O2 SATURATION 84.2 % (60.0-80.0); VENOUS PARTIAL PRESSURE CO2 42.9 mmHg (38.0-50.0); VENOUS PARTIAL PRESSURE O2 51.5 mmHg (30.0-50.0); VENOUS PH 7.425 UNITS (7.330-7.430); VENOUS STANDARD HCO3 26.8 MMOL/L; VENOUS TOTAL CO2 28.8 MMOL/L (24.0-28.0)
[2023-07-14 22:27] LABS: BASO % 0.3 % (0.0-1.0); EOS # 0.1 10^3/uL (0.0-0.5); EOS % 1.1 % (0.0-3.0); HEMATOCRIT 26.1 % (36.0-47.0); HEMOGLOBIN 8.6 g/dl (12.0-15.5); LYMPH # 0.5 10^3/uL (1.5-5.0); LYMPH % 7.3 % (24.0-44.0); MEAN CORPUSCULAR HEMOGLOBIN 32.1 pg (27.0-33.0); MEAN CORPUSCULAR VOLUME 97.4 fl (80.0-96.0); MONO # 0.6 10^3/uL (0.0-0.8); MONO % 9.7 % (2.0-8.0); NEUTROPHILS # 5.4 10^3/uL (1.5-8.5); NEUTROPHILS % 81.3 % (36.0-66.0); RED BLOOD COUNT 2.68 10^6/uL (4.00-5.40); WHITE BLOOD COUNT 6.6 10^3/uL (4.0-10.0)
[2023-07-14 22:52] LABS: BILIRUBIN,DIRECT 0.2 MG/DL (<0.4); BILIRUBIN,TOTAL 0.5 MG/DL (0.3-1.2); CALCIUM LEVEL 8.2 MG/DL (8.3-10.6); CREATININE FOR GFR 6.85 MG/DL (0.55-1.30); GLOMERULAR FILTRATION RATE 6.5 (>45); POTASSIUM SERUM 4.3 MMOL/L (3.5-5.1); TOTAL PROTEIN 7.2 G/DL (5.7-8.2)
[2023-07-14 22:58] LABS: MB/CK RELATIVE INDEX 2.77 (< OR =4)
[2023-07-15 00:39] LABS: MB/CK RELATIVE INDEX 2.7 (< OR =4)
[2023-07-15 00:45] VITALS: BP 149/67; O2SAT 95
== END 2023-07-15 01:18 | disposition home or self-care (01) ==
LOC: M ED 21:21
DX: R06.00 Dyspnea, unspecified (principal); N18.6 End stage renal disease; J44.9 Chronic obstructive pulmonary disease, unspecified; Z88.2 Allergy status to sulfonamides; Z88.6 Allergy status to analgesic agent; Z88.8 Allergy status to other drugs, medicaments and biological substances; Z79.52 Long term (current) use of systemic steroids; Z79.4 Long term (current) use of insulin; Z79.899 Other long term (current) drug therapy; Z79.02 Long term (current) use of antithrombotics/antiplatelets

== ENCOUNTER 2023-07-18 21:42 | Observation (INO) | payer OTHER ==
[~2023-07-18] VITALS: Ht 165.1 cm; Wt 101.6 kg
[~2023-07-18 21:42] MED LIST changes: -HYDR-3910 PO; +HYDR25TA87 PO; -MIRA1POW3 PO; +MIRA33506 PO
[2023-07-18] MEDS: ASPIRIN 81MG CHEW TABLET PO ONE (22:40)
[2023-07-18 23:33] LABS: CK-MB VALUE MASS 1.4 NG/ML (<3.6)
[2023-07-18 23:40] LABS: ALBUMIN 3.2 G/DL (3.2-5.2); BILIRUBIN,DIRECT 0.3 MG/DL (<0.4); BILIRUBIN,TOTAL 0.6 MG/DL (0.3-1.2); CALCIUM LEVEL 7.9 MG/DL (8.3-10.6); CREATININE FOR GFR 8.69 MG/DL (0.55-1.30); GLOMERULAR FILTRATION RATE 4.9 (>45); MAGNESIUM LEVEL 2.6 MG/DL (1.8-2.4); MB/CK RELATIVE INDEX 2.8 (< OR =4); POTASSIUM SERUM 6.4 MMOL/L (3.5-5.1); TOTAL PROTEIN 7.7 G/DL (5.7-8.2)
[2023-07-19 00:47] LABS: CK-MB VALUE MASS 1.2 NG/ML (<3.6)
[2023-07-19 00:49] LABS: MB/CK RELATIVE INDEX 2.18 (< OR =4)
[2023-07-19] MEDS: DEXTROSE 50% 50ML SYRINGE IV ONE (01:33)
[2023-07-19] MEDS: CALCIUM CHLORIDE 10% 1 GM/10 ML SYR IV ONE (01:33)
[2023-07-19] MEDS: PATIROMER SORBITEX CALCIUM 8.4 GM POWDER PACKET (VELTASSA) PO ONE (01:33)
[2023-07-19] MEDS: HumuLIN R (REGULAR) INSULIN (NovoLIN R) **100U/ML** PER UNIT IV ONE (01:34)
[2023-07-19] MEDS ORDERED: GLUCOSE 4GM CHEW TABLET PO PRN (01:50)
[2023-07-19] MEDS ORDERED: GLUCAGON INJ 1MG VIAL SC PRN (01:50)
[2023-07-19] MEDS ORDERED: DEXTROSE 50% 50ML SYRINGE IV PRN (01:50)
[2023-07-19] MEDS ORDERED: ARTIDRO OD (02:37)
[2023-07-19] MEDS ORDERED: HOME MED LIST COMPLETE! XX SCH (02:40)
[2023-07-19] MEDS ORDERED: ALBUTEROL 90 MCG/ACT 8GM HFA INHALER INH PRN (02:55)
[2023-07-19] MEDS ORDERED: IPRATROPIUM 0.5MG/ALBUTEROL 2.5MG INH SOL UD 3ML (DUONEB) INH PRN (02:55)
[2023-07-19] MEDS ORDERED: SENOKOT S TAB PO PRN (02:55)
[2023-07-19] MEDS ORDERED: MIRALAX *UNIT DOSE* 17GM PACKET PO PRN (02:55)
[2023-07-19] MEDS ORDERED: traMADol ER 100MG TABLET (ULTRAM ER) PO SCH (02:55)
[2023-07-19] MEDS ORDERED: HEPARIN 1,000UNITS/ML 10ML VIAL (FOR RADIOLOGY & DIALYSIS ONLY) IV PRN (06:35)
[2023-07-19] MEDS ORDERED: LIDOCAINE 1% SDV 5ML VIAL SC PRN (06:35)
[2023-07-19] MEDS ORDERED: HEPARIN 1,000UNITS/ML 10ML VIAL (FOR RADIOLOGY & DIALYSIS ONLY) XX SCH (06:35)
[2023-07-19] MEDS ORDERED: SODIUM CHLORIDE 0.9% 1000ML IV PRN (06:35)
[2023-07-19] MEDS: LEVOTHYROXINE 100MCG TABLET (0.1MG) PO SCH (06:45)
[2023-07-19] MEDS: LEVOTHYROXINE 75MCG TABLET (0.075MG) PO SCH (06:46)
[2023-07-19] MEDS: HEPARIN SOD (PORCINE) 5000UNITS/ML 1ML VIAL/SYRINGE SC SCH (06:46)
[2023-07-19 06:55] LABS: HEMATOCRIT 31.7 % (36.0-47.0); HEMOGLOBIN 9.9 g/dl (12.0-15.5); MEAN CORPUSCULAR HEMOGLOBIN 29.3 pg (27.0-33.0); MEAN CORPUSCULAR HGB CONC 31.2 g/dl (32.0-36.5); MEAN CORPUSCULAR VOLUME 93.8 fl (80.0-96.0); PLATELET COUNT, AUTOMATED 189 10^3/uL (150-450); RED BLOOD COUNT 3.38 10^6/uL (4.00-5.40); WHITE BLOOD COUNT 12.1 10^3/uL (4.0-10.0)
[2023-07-19 07:12] LABS: INR 1.51; PROTHROMBIN TIME 17.7 SECONDS (12.5-14.5)
[2023-07-19 07:58] LABS: HEPATITIS B CORE ANTIBODY IGM NEGATIVE (NEGATIVE); HEPATITIS C VIRUS ABY INDEX 0.12 INDEX (<0.8)
[2023-07-19 08:07] LABS: ALKALINE PHOSPHATASE 162 U/L (46-116); ALT/SGPT 442 U/L (7.0-40); AST/SGOT 636 U/L (<34); BILIRUBIN,TOTAL 0.6 MG/DL (0.3-1.2); BLOOD UREA NITROGEN 82 MG/DL (9-23); CALCIUM LEVEL 8.2 MG/DL (8.3-10.6); CARBON DIOXIDE LEVEL 22 MMOL/L (20-31); CHLORIDE LEVEL 95 MMOL/L (98-107); GLOMERULAR FILTRATION RATE 4.7 (>45); GLUCOSE, FASTING 101 MG/DL (74-106); MAGNESIUM LEVEL 2.5 MG/DL (1.8-2.4); PHOSPHORUS LEVEL 11.9 MG/DL (2.4-5.1); POTASSIUM SERUM 6.2 MMOL/L (3.5-5.1); SODIUM LEVEL 133 MMOL/L (136-145); TOTAL PROTEIN 7.3 G/DL (5.7-8.2)
[2023-07-19] MEDS: BUDESONIDE 0.5 MG/2 ML INHALATION SUSPENSION INH SCH (08:14)
[2023-07-19] MEDS: INSULIN LISPRO (NovoLOG) PER UNIT SC SCH ×2 (08:20→20:51)
[2023-07-19] MEDS: CETIRIZINE (ZyrTEC) 10 MG TAB PO SCH (08:53)
[2023-07-19] MEDS: predniSONE 20 MG TAB PO SCH (08:53)
[2023-07-19] MEDS: LACTOBACILLUS ACIDOPHILUS CAP (BACID) PO SCH (08:53)
[2023-07-19] MEDS: DULoxetine 30MG CAPSULE (CYMBALTA) PO SCH (08:54)
[2023-07-19 13:45] VITALS: BP 171/80; TEMP 96.3; O2SAT 97
[2023-07-19] MEDS: **hydrALAZINE HCL** 25 MG TAB PO SCH (14:33)
[2023-07-19] MEDS: (RENVELA) SEVELAMER **CARBONate** 800 MG TAB PO SCH (14:35)
[2023-07-19] MEDS: CINACALCET 30 MG TAB (SENSIPAR) PO SCH (14:53)
[2023-07-19] MEDS: TORSEMIDE 20 MG TAB PO SCH (14:54)
[2023-07-19] MEDS: METOPROLOL SUCC (TopROL XL) 50MG **XL** TAB PO SCH (14:55)
[2023-07-19 16:00] VITALS: BP 164/76; TEMP 97.4; O2SAT 96
[2023-07-19] MEDS: NICOTINE 21MG/24HR 1 EA TRANSDERMAL TD SCH (16:10)
[2023-07-19 19:27] VITALS: BP 136/63; TEMP 97.2; O2SAT 98
[2023-07-19 19:36] VITALS: O2SAT 96
[2023-07-19 20:10] LABS: ALBUMIN 2.6 G/DL (3.2-5.2); BILIRUBIN,TOTAL 0.5 MG/DL (0.3-1.2); CREATININE FOR GFR 6.02 MG/DL (0.55-1.30); GLOMERULAR FILTRATION RATE 7.5 (>45); POTASSIUM SERUM 4.5 MMOL/L (3.5-5.1)
[2023-07-19] MEDS: LIDOCAINE 5% (LIDODERM) PATCH TOP PRN (21:02)
[2023-07-19] MEDS: PROMETHAZINE 25MG/ML 1ML VIAL IM ONE (21:09)
[2023-07-19] MEDS: ATORVASTATIN 10 MG TAB PO SCH (21:11)
[2023-07-19 23:43] VITALS: TEMP 97.6; O2SAT 91
[2023-07-20 04:24] VITALS: BP 171/78; TEMP 97.9; O2SAT 93
[2023-07-20 04:55] VITALS: BP 144/80
[2023-07-20 05:45] LABS: BASO # 0.1 10^3/uL (0.0-0.2); BASO % 0.6 % (0.0-1.0); EOS % 0.1 % (0.0-3.0); HEMATOCRIT 32.5 % (36.0-47.0); HEMOGLOBIN 10.4 g/dl (12.0-15.5); LYMPH # 0.8 10^3/uL (1.5-5.0); LYMPH % 8.1 % (24.0-44.0); MEAN CORPUSCULAR HEMOGLOBIN 29.2 pg (27.0-33.0); MEAN CORPUSCULAR VOLUME 91.3 fl (80.0-96.0); MONO # 1.2 10^3/uL (0.0-0.8); MONO % 12.8 % (2.0-8.0); NEUTROPHILS # 7.5 10^3/uL (1.5-8.5); PLATELET COUNT, AUTOMATED 237 10^3/uL (150-450); RED BLOOD COUNT 3.56 10^6/uL (4.00-5.40); WHITE BLOOD COUNT 9.7 10^3/uL (4.0-10.0)
[2023-07-20] MEDS ORDERED: HEPARIN 1,000UNITS/ML 10ML VIAL (FOR RADIOLOGY & DIALYSIS ONLY) XX SCH (06:00)
[2023-07-20] MEDS ORDERED: LIDOCAINE 1% SDV 5ML VIAL SC PRN (06:00)
[2023-07-20] MEDS ORDERED: SODIUM CHLORIDE 0.9% 1000ML IV PRN (06:00)
[2023-07-20 06:15] LABS: ALBUMIN 2.6 G/DL (3.2-5.2); BILIRUBIN,DIRECT 0.2 MG/DL (<0.4); BILIRUBIN,TOTAL 0.4 MG/DL (0.3-1.2); CALCIUM LEVEL 7.6 MG/DL (8.3-10.6); CREATININE FOR GFR 6.77 MG/DL (0.55-1.30); GLOMERULAR FILTRATION RATE 6.6 (>45); MAGNESIUM LEVEL 2.2 MG/DL (1.8-2.4); PHOSPHORUS LEVEL 8.6 MG/DL (2.4-5.1); POTASSIUM SERUM 4.4 MMOL/L (3.5-5.1); TOTAL PROTEIN 6.4 G/DL (5.7-8.2)
[2023-07-20 07:34] VITALS: BP 130/76; TEMP 96.7; O2SAT 95
[2023-07-20 12:31] VITALS: BP 151/66; TEMP 97; O2SAT 98
[2023-07-20 13:00] VITALS: BP 151/66
== END 2023-07-20 14:21 | disposition home or self-care (01) ==
LOC: M ED 21:42 → M ED INP 21:43 → UNDOADMOB 07-19 02:34 → INTOOBSV 07-19 02:34 → M ED INP 07-19 02:34 → M PCU 07-19 13:34 → M ED INP 07-19 13:34 → UNDODISOB 07-20 14:21
PROVIDERS: ADMIT Family Medicine; ATTEND Family Medicine
DX: J96.21 Acute and chronic respiratory failure with hypoxia (principal); N18.6 End stage renal disease; E87.5 Hyperkalemia; Z91.158 Patient's noncompliance with renal dialysis for other reason; E87.70 Fluid overload, unspecified; R07.89 Other chest pain; R74.01 Elevation of levels of liver transaminase levels; I35.0 Nonrheumatic aortic (valve) stenosis; J44.9 Chronic obstructive pulmonary disease, unspecified; E11.9 Type 2 diabetes mellitus without complications; Z99.81 Dependence on supplemental oxygen; I25.10 Atherosclerotic heart disease of native coronary artery without angina pectoris; Z79.899 Other long term (current) drug therapy; Z79.4 Long term (current) use of insulin; Z88.2 Allergy status to sulfonamides; Z88.8 Allergy status to other drugs, medicaments and biological substances; G47.33 Obstructive sleep apnea (adult) (pediatric); E03.9 Hypothyroidism, unspecified; K76.0 Fatty (change of) liver, not elsewhere classified; I27.20 Pulmonary hypertension, unspecified; K21.9 Gastro-esophageal reflux disease without esophagitis; E78.5 Hyperlipidemia, unspecified; I11.9 Hypertensive heart disease without heart failure; D64.9 Anemia, unspecified; E55.9 Vitamin D deficiency, unspecified; R39.81 Functional urinary incontinence; I50.30 Unspecified diastolic (congestive) heart failure; Z87.891 Personal history of nicotine dependence
CPT/HCPCS: 71250; 80048; 80053; 80069; 80074; 80076; 82550; 82553; 83735; 84100; 85025; 85027; 85610; 86140; 87486; 87581; 87633; 87798; 93005; 93041; 94640; 94760; 96372; 96374; 96375; 97161; 97530; 99285; J1815; J2550; J7512

== ENCOUNTER 2023-07-24 02:10 | Emergency (ER) | payer OTHER ==
[~2023-07-24] VITALS: Ht 170.2 cm; Wt 90.9 kg
[~2023-07-24 02:10] MED LIST changes: +ARTIDRO OD; +HYDR-3910 PO; -HYDR25TA87 PO; +MIRA1POW3 PO; -MIRA33506 PO
[2023-07-24 09:06] VITALS: O2SAT 100
[2023-07-24 09:18] VITALS: BP 189/94; TEMP 96.5
== END 2023-07-24 09:45 | disposition home or self-care (01) ==
LOC: M ED 02:10
DX: S60.211A Contusion of right wrist, initial encounter (principal); N18.6 End stage renal disease; Z83.79 Family history of other diseases of the digestive system; E11.9 Type 2 diabetes mellitus without complications; I25.2 Old myocardial infarction; J44.9 Chronic obstructive pulmonary disease, unspecified; I10 Essential (primary) hypertension; E78.5 Hyperlipidemia, unspecified; Z86.79 Personal history of other diseases of the circulatory system; Z87.891 Personal history of nicotine dependence; Z88.2 Allergy status to sulfonamides; Z88.5 Allergy status to narcotic agent; Z88.8 Allergy status to other drugs, medicaments and biological substances; Z79.52 Long term (current) use of systemic steroids; Z79.899 Other long term (current) drug therapy; Z79.891 Long term (current) use of opiate analgesic; Z79.4 Long term (current) use of insulin

== ENCOUNTER 2023-07-25 22:41 | Inpatient (IN) | payer OTHER ==
[~2023-07-25] VITALS: Ht 170.2 cm; Wt 102.5 kg
[~2023-07-25 22:41] MED LIST changes: -HYDR-3910 PO; +HYDR25TA87 PO; -MIRA1POW3 PO; +MIRA33506 PO
[2023-07-26 03:14] LABS: BASO # 0.1 10^3/uL (0.0-0.2); BASO % 0.4 % (0.0-1.0); EOS % 0.2 % (0.0-3.0); HEMATOCRIT 34.9 % (36.0-47.0); HEMOGLOBIN 11.4 g/dl (12.0-15.5); LYMPH # 0.8 10^3/uL (1.5-5.0); LYMPH % 4.7 % (24.0-44.0); MEAN CORPUSCULAR HEMOGLOBIN 29.9 pg (27.0-33.0); MEAN CORPUSCULAR HGB CONC 32.7 g/dl (32.0-36.5); MEAN CORPUSCULAR VOLUME 91.6 fl (80.0-96.0); MONO # 1.7 10^3/uL (0.0-0.8); NEUTROPHILS # 14.3 10^3/uL (1.5-8.5); PLATELET COUNT, AUTOMATED 191 10^3/uL (150-450); RED BLOOD COUNT 3.81 10^6/uL (4.00-5.40)
[2023-07-26 03:46] LABS: BLOOD UREA NITROGEN 75 MG/DL (9-23); CALCIUM LEVEL 9.3 MG/DL (8.3-10.6); CARBON DIOXIDE LEVEL 18 MMOL/L (20-31); CHLORIDE LEVEL 91 MMOL/L (98-107); CREATININE FOR GFR 8.44 MG/DL (0.55-1.30); GLOMERULAR FILTRATION RATE 5.1 (>45); GLUCOSE, FASTING 122 MG/DL (74-106); POTASSIUM SERUM 6.1 MMOL/L (3.5-5.1); SODIUM LEVEL 128 MMOL/L (136-145)
[2023-07-26] MEDS: PATIROMER SORBITEX CALCIUM 8.4 GM POWDER PACKET (VELTASSA) PO ONE (06:14)
[2023-07-26] MEDS: INSULIN LISPRO (NovoLOG) PER UNIT SC SCH ×2 (07:30→22:21)
[2023-07-26] MEDS: IPRATROPIUM 0.5MG/ALBUTEROL 2.5MG INH SOL UD 3ML (DUONEB) NEB ONE (07:54)
[2023-07-26] MEDS: PIPERACILLIN/TAZOBACTAM SOD 4.5 GM in D5W MINI-BAG PLUS 50 ML IV ONE (07:59)
[2023-07-26] MEDS ORDERED: HEPARIN 1,000UNITS/ML 10ML VIAL (FOR RADIOLOGY & DIALYSIS ONLY) XX SCH (08:00)
[2023-07-26] MEDS ORDERED: HEPARIN 1,000UNITS/ML 10ML VIAL (FOR RADIOLOGY & DIALYSIS ONLY) IV PRN (08:00)
[2023-07-26] MEDS ORDERED: LIDOCAINE 1% SDV 5ML VIAL SC PRN (08:00)
[2023-07-26] MEDS ORDERED: DEXTROSE 50% 50ML SYRINGE IV PRN (08:30)
[2023-07-26] MEDS ORDERED: GLUCOSE 4GM CHEW TABLET PO PRN (08:30)
[2023-07-26] MEDS ORDERED: GLUCAGON INJ 1MG VIAL SC PRN (08:30)
[2023-07-26] MEDS ORDERED: HOME MED LIST COMPLETE! XX SCH (08:35)
[2023-07-26] MEDS: ACETAMINOPHEN TAB 650MG DOSE (2X325MG) PO PRN (09:42)
[2023-07-26] MEDS: IPRATROPIUM 0.5MG/ALBUTEROL 2.5MG INH SOL UD 3ML (DUONEB) NEB PRN (10:13)
[2023-07-26 14:32] LABS: HEPATITIS B SURFACE ANTIBODY NEGATIVE (POSITIVE)
[2023-07-26 15:05] LABS: HEPATITIS B CORE ANTIBODY IGM NEGATIVE (NEGATIVE); HEPATITIS C VIRUS ABY INDEX < 0.02 INDEX (<0.8)
[2023-07-26 15:14] LABS: HEPATITIS B SURFACE ANTIBODY NEGATIVE (POSITIVE)
[2023-07-26 15:35] LABS: ERYTHROCYTE SEDIMENTATION RATE 58 mm/hr (0-30)
[2023-07-26 15:46] LABS: HEPATITIS C VIRUS ABY INDEX 0.06 INDEX (<0.8)
[2023-07-26 15:47] LABS: HEPATITIS B CORE ANTIBODY IGM NEGATIVE (NEGATIVE)
[2023-07-26 16:00] VITALS: BP 171/94; TEMP 97.7; O2SAT 93
[2023-07-26] MEDS ORDERED: EMLA CREAM 5GM TUBE (LIDOCAINE/PRILOCAINE) TOP SCH (16:15)
[2023-07-26] MEDS ORDERED: SENOKOT S TAB PO PRN (16:15)
[2023-07-26] MEDS ORDERED: MIRALAX *UNIT DOSE* 17GM PACKET PO PRN (16:15)
[2023-07-26] MEDS ORDERED: LIDOCAINE 5% (LIDODERM) PATCH TOP PRN (16:15)
[2023-07-26] MEDS: **hydrALAZINE HCL** 25 MG TAB PO SCH (17:10)
[2023-07-26] MEDS: METOPROLOL SUCC (TopROL XL) 50MG **XL** TAB PO SCH (17:10)
[2023-07-26] MEDS: HEPARIN SOD (PORCINE) 5000UNITS/ML 1ML VIAL/SYRINGE SC SCH (17:11)
[2023-07-26 18:28] LABS: CALCIUM LEVEL 8.6 MG/DL (8.3-10.6); CREATININE FOR GFR 4.66 MG/DL (0.55-1.30); GLOMERULAR FILTRATION RATE 10.1 (>45); POTASSIUM SERUM 3.9 MMOL/L (3.5-5.1)
[2023-07-26 18:30] VITALS: BP 107/61; TEMP 98.1; O2SAT 90
[2023-07-26] MEDS: BUDESONIDE 0.5 MG/2 ML INHALATION SUSPENSION INH SCH (18:49)
[2023-07-26] MEDS: SYMBICORT 160/4.5MCG INHALER 6GM INH SCH (18:58)
[2023-07-26] MEDS: ALBUTEROL 90 MCG/ACT 8GM HFA INHALER INH PRN (21:08)
[2023-07-26 21:12] VITALS: BP 121/64; TEMP 98.4; O2SAT 92
[2023-07-26 22:10] LABS: ALBUMIN 2.7 G/DL (3.2-5.2); BILIRUBIN,DIRECT 0.4 MG/DL (<0.4); BILIRUBIN,TOTAL 0.8 MG/DL (0.3-1.2); TOTAL PROTEIN 6.5 G/DL (5.7-8.2)
[2023-07-26] MEDS: DOXYCYCLINE HYCLATE 100MG TABLET PO SCH (22:20)
[2023-07-26] MEDS: DULoxetine 30MG CAPSULE (CYMBALTA) PO SCH (22:20)
[2023-07-26] MEDS: CLOTRIMAZOLE 1% TOPICAL CREAM 30GM TOP SCH (22:21)
[2023-07-26] MEDS: traMADol ER 100MG TABLET (ULTRAM ER) PO SCH (22:46)
[2023-07-27 01:45] LABS: HEMATOCRIT 31.2 % (36.0-47.0); HEMOGLOBIN 10.1 g/dl (12.0-15.5); MEAN CORPUSCULAR HEMOGLOBIN 29.2 pg (27.0-33.0); MEAN CORPUSCULAR HGB CONC 32.4 g/dl (32.0-36.5); MEAN CORPUSCULAR VOLUME 90.2 fl (80.0-96.0); PLATELET COUNT, AUTOMATED 150 10^3/uL (150-450); RED BLOOD COUNT 3.46 10^6/uL (4.00-5.40); WHITE BLOOD COUNT 9.5 10^3/uL (4.0-10.0)
[2023-07-27 02:03] LABS: INR 1.43
[2023-07-27 02:41] LABS: ALBUMIN 2.9 G/DL (3.2-5.2); BILIRUBIN,TOTAL 0.6 MG/DL (0.3-1.2); CALCIUM LEVEL 8.9 MG/DL (8.3-10.6); CK-MB VALUE MASS 4.7 NG/ML (<3.6); CREATININE FOR GFR 5.32 MG/DL (0.55-1.30); GLOMERULAR FILTRATION RATE 8.7 (>45); MAGNESIUM LEVEL 2.3 MG/DL (1.8-2.4); MB/CK RELATIVE INDEX 8.1 (< OR =4); POTASSIUM SERUM 3.8 MMOL/L (3.5-5.1); TOTAL PROTEIN 6.9 G/DL (5.7-8.2)
[2023-07-27 06:00] VITALS: BP 136/63; TEMP 98.4; O2SAT 92
[2023-07-27] MEDS: LEVOTHYROXINE 150MCG TABLET (0.15MG) PO SCH (06:31)
[2023-07-27] MEDS: LEVOTHYROXINE 25MCG TABLET (0.025MG) PO SCH (06:31)
[2023-07-27] MEDS ORDERED: HEPARIN 1,000UNITS/ML 10ML VIAL (FOR RADIOLOGY & DIALYSIS ONLY) IV PRN (07:05)
[2023-07-27] MEDS ORDERED: SODIUM CHLORIDE 0.9% 1000ML IV PRN (07:05)
[2023-07-27] MEDS ORDERED: LIDOCAINE 1% SDV 5ML VIAL SC PRN (07:05)
[2023-07-27] MEDS ORDERED: HEPARIN 1,000UNITS/ML 10ML VIAL (FOR RADIOLOGY & DIALYSIS ONLY) XX SCH (07:05)
[2023-07-27] MEDS ORDERED: PIPERACILLIN/TAZOBACTAM SOD 2.25 GM in D5W MINI-BAG PLUS 50 ML IV SCH (07:20)
[2023-07-27 07:21] VITALS: O2SAT 92
[2023-07-27] MEDS: TIOTROPIUM INHALER/CAPSULE (SPIRIVA) INH SCH (07:22)
[2023-07-27] MEDS: TORSEMIDE 20 MG TAB PO SCH (07:48)
[2023-07-27] MEDS: CINACALCET 30 MG TAB (SENSIPAR) PO SCH (07:48)
[2023-07-27] MEDS: CETIRIZINE (ZyrTEC) 10 MG TAB PO SCH (07:49)
[2023-07-27] MEDS: ASPIRIN 81MG ENTERIC TABLET PO SCH (12:22)
[2023-07-27] MEDS: PIPERACILLIN/TAZOBACTAM SOD 4.5 GM in D5W MINI-BAG PLUS 50 ML IV SCH (12:23)
[2023-07-27 14:00] VITALS: BP 135/64; TEMP 97.9; O2SAT 93
[2023-07-27 22:00] VITALS: BP 133/65; TEMP 97.9; O2SAT 94
[2023-07-28] VITALS (8 sets, daily range): BP systolic 125–147; BP diastolic 63–79; TEMP 97.7–98.6; O2SAT 92–97
[2023-07-28 06:03] LABS: HEMATOCRIT 32.3 % (36.0-47.0); MEAN CORPUSCULAR HEMOGLOBIN 28.7 pg (27.0-33.0); MEAN CORPUSCULAR VOLUME 92.8 fl (80.0-96.0); PLATELET COUNT, AUTOMATED 148 10^3/uL (150-450); RED BLOOD COUNT 3.48 10^6/uL (4.00-5.40); WHITE BLOOD COUNT 6.3 10^3/uL (4.0-10.0)
[2023-07-28 06:42] LABS: CALCIUM LEVEL 8.8 MG/DL (8.3-10.6); CREATININE FOR GFR 4.59 MG/DL (0.55-1.30); GLOMERULAR FILTRATION RATE 10.3 (>45); MAGNESIUM LEVEL 2.2 MG/DL (1.8-2.4); POTASSIUM SERUM 3.8 MMOL/L (3.5-5.1)
[2023-07-28 08:15] LABS: ALBUMIN 2.7 G/DL (3.2-5.2); BILIRUBIN,DIRECT 0.3 MG/DL (<0.4); BILIRUBIN,TOTAL 0.5 MG/DL (0.3-1.2); TOTAL PROTEIN 6.5 G/DL (5.7-8.2)
[2023-07-29 00:56] VITALS: O2SAT 98
[2023-07-29 06:33] LABS: HEMATOCRIT 32.5 % (36.0-47.0); HEMOGLOBIN 9.9 g/dl (12.0-15.5); MEAN CORPUSCULAR HGB CONC 30.5 g/dl (32.0-36.5); MEAN CORPUSCULAR VOLUME 95.3 fl (80.0-96.0); PLATELET COUNT, AUTOMATED 146 10^3/uL (150-450); RED BLOOD COUNT 3.41 10^6/uL (4.00-5.40); WHITE BLOOD COUNT 6.3 10^3/uL (4.0-10.0)
[2023-07-29 06:38] VITALS: BP 163/85; TEMP 97.3; O2SAT 99
[2023-07-29] MEDS ORDERED: HEPARIN 1,000UNITS/ML 10ML VIAL (FOR RADIOLOGY & DIALYSIS ONLY) IV PRN (06:45)
[2023-07-29] MEDS ORDERED: SODIUM CHLORIDE 0.9% 1000ML IV PRN (06:45)
[2023-07-29] MEDS ORDERED: HEPARIN 1,000UNITS/ML 10ML VIAL (FOR RADIOLOGY & DIALYSIS ONLY) XX SCH (06:45)
[2023-07-29] MEDS ORDERED: LIDOCAINE 1% SDV 5ML VIAL SC PRN (06:45)
[2023-07-29 07:07] LABS: ALBUMIN 2.7 G/DL (3.2-5.2); BILIRUBIN,TOTAL 0.5 MG/DL (0.3-1.2); CALCIUM LEVEL 8.2 MG/DL (8.3-10.6); CREATININE FOR GFR 6.1 MG/DL (0.55-1.30); GLOMERULAR FILTRATION RATE 7.4 (>45); MAGNESIUM LEVEL 2.2 MG/DL (1.8-2.4); TOTAL PROTEIN 6.5 G/DL (5.7-8.2)
[2023-07-29] MEDS: DARBEPOETIN 100MCG/0.5ML *DIALYSIS* SYRINGE IV SCH (09:40)
[2023-07-29 14:00] VITALS: BP 153/67; TEMP 98.1; O2SAT 96
[2023-07-29 20:00] VITALS: BP 138/63; TEMP 97.9; O2SAT 95
[2023-07-30 05:26] VITALS: BP 164/76; TEMP 97; O2SAT 95
[2023-07-30 07:41] LABS: HEMATOCRIT 33.2 % (36.0-47.0); HEMOGLOBIN 9.9 g/dl (12.0-15.5); MEAN CORPUSCULAR HEMOGLOBIN 28.7 pg (27.0-33.0); MEAN CORPUSCULAR HGB CONC 29.8 g/dl (32.0-36.5); MEAN CORPUSCULAR VOLUME 96.2 fl (80.0-96.0); PLATELET COUNT, AUTOMATED 152 10^3/uL (150-450); RED BLOOD COUNT 3.45 10^6/uL (4.00-5.40); WHITE BLOOD COUNT 6.9 10^3/uL (4.0-10.0)
[2023-07-30 08:20] LABS: ALBUMIN 2.9 G/DL (3.2-5.2); BILIRUBIN,TOTAL 0.5 MG/DL (0.3-1.2); CREATININE FOR GFR 4.68 MG/DL (0.55-1.30); GLOMERULAR FILTRATION RATE 10.1 (>45); MAGNESIUM LEVEL 2.1 MG/DL (1.8-2.4); POTASSIUM SERUM 3.8 MMOL/L (3.5-5.1)
[2023-07-30 08:22] VITALS: BP 162/82; TEMP 97.7; O2SAT 96
[2023-07-30 10:09] VITALS: BP 162/82
[2023-07-30] MEDS ORDERED: GLUC1TES2 XX (10:30)
[2023-07-30] MEDS ORDERED: ASPI81CH33 PO ×2 (10:30→11:19)
[2023-07-30] MEDS ORDERED: DOXY-444 PO (10:31)
[2023-07-30] MEDS ORDERED: DOXY100C3 PO (11:31)
[2023-07-30 13:04] VITALS: BP 137/52; TEMP 97; O2SAT 96
== END 2023-07-30 13:35 | disposition home or self-care (01) | DRG 720 ==
LOC: M ED 22:41 → EDBD 22:41 → M ED INP 07-26 07:33 → M MSPAV 07-26 15:56 → OBSVTOIN 07-27 02:28
PROVIDERS: ADMIT Internal Medicine; ATTEND Internal Medicine
PROC: 5A1D70Z Performance of Urinary Filtration, Intermittent, Less than 6 Hours Per Day (ICD-10-PCS; principal; 2023-07-29)
DX: A41.9 Sepsis, unspecified organism (principal); J96.21 Acute and chronic respiratory failure with hypoxia; I13.2 Hypertensive heart and chronic kidney disease with heart failure and with stage 5 chronic kidney disease, or end stage renal disease; E87.20 Acidosis, unspecified; I24.89 Other forms of acute ischemic heart disease; N18.6 End stage renal disease; I50.32 Chronic diastolic (congestive) heart failure; E11.22 Type 2 diabetes mellitus with diabetic chronic kidney disease; I27.20 Pulmonary hypertension, unspecified; E87.1 Hypo-osmolality and hyponatremia; E87.5 Hyperkalemia; E87.70 Fluid overload, unspecified; M87.80 Other osteonecrosis, unspecified bone; I80.01 Phlebitis and thrombophlebitis of superficial vessels of right lower extremity; K76.0 Fatty (change of) liver, not elsewhere classified; E21.1 Secondary hyperparathyroidism, not elsewhere classified; K21.9 Gastro-esophageal reflux disease without esophagitis; E03.9 Hypothyroidism, unspecified; F41.9 Anxiety disorder, unspecified; J44.9 Chronic obstructive pulmonary disease, unspecified; Z99.2 Dependence on renal dialysis; G47.33 Obstructive sleep apnea (adult) (pediatric); Z91.119 Patient's noncompliance with dietary regimen due to unspecified reason; I25.10 Atherosclerotic heart disease of native coronary artery without angina pectoris; F32.A Depression, unspecified; M19.90 Unspecified osteoarthritis, unspecified site; Z79.4 Long term (current) use of insulin; Z88.6 Allergy status to analgesic agent; Z88.5 Allergy status to narcotic agent; Z88.8 Allergy status to other drugs, medicaments and biological substances; Z79.899 Other long term (current) drug therapy; Z79.82 Long term (current) use of aspirin; Z87.891 Personal history of nicotine dependence; R19.7 Diarrhea, unspecified; I35.0 Nonrheumatic aortic (valve) stenosis; B35.3 Tinea pedis; Z91.158 Patient's noncompliance with renal dialysis for other reason

== ENCOUNTER 2023-08-02 12:26 | Emergency (ER) | payer OTHER ==
[~2023-08-02] VITALS: Ht 170.2 cm; Wt 90.9 kg
[~2023-08-02 12:26] MED LIST changes: +ASPI81CH33 PO; +DOXY100C3 PO; +GLUC1TES2 XX
[2023-08-02 15:35] LABS: BASO % 0.4 % (0.0-1.0); EOS # 0.1 10^3/uL (0.0-0.5); EOS % 1.1 % (0.0-3.0); HEMATOCRIT 29.9 % (36.0-47.0); HEMOGLOBIN 9.3 g/dl (12.0-15.5); LYMPH # 0.8 10^3/uL (1.5-5.0); LYMPH % 9.8 % (24.0-44.0); MEAN CORPUSCULAR HEMOGLOBIN 29.1 pg (27.0-33.0); MEAN CORPUSCULAR HGB CONC 31.1 g/dl (32.0-36.5); MEAN CORPUSCULAR VOLUME 93.4 fl (80.0-96.0); MONO # 0.7 10^3/uL (0.0-0.8); MONO % 8.8 % (2.0-8.0); NEUTROPHILS # 6.5 10^3/uL (1.5-8.5); NEUTROPHILS % 79.4 % (36.0-66.0); PLATELET COUNT, AUTOMATED 111 10^3/uL (150-450); WHITE BLOOD COUNT 8.1 10^3/uL (4.0-10.0)
[2023-08-02 15:49] LABS: INR 1.15; PROTHROMBIN TIME 14.4 SECONDS (12.5-14.5)
[2023-08-02 15:58] LABS: ERYTHROCYTE SEDIMENTATION RATE 61 mm/hr (0-30)
[2023-08-02 16:04] LABS: C REACTIVE PROTEIN QUANTITATIV 2.5 MG/DL (<1.0)
[2023-08-02] MEDS: IPRATROPIUM 0.5MG/ALBUTEROL 2.5MG INH SOL UD 3ML (DUONEB) NEB ONE (16:35)
[2023-08-02 17:09] LABS: CALCIUM LEVEL 7.2 MG/DL (8.3-10.6); CREATININE FOR GFR 6.86 MG/DL (0.55-1.30); GLOMERULAR FILTRATION RATE 6.5 (>45); POTASSIUM SERUM 4.1 MMOL/L (3.5-5.1)
[2023-08-02 19:25] VITALS: BP 164/89; TEMP 97.8; O2SAT 96
== END 2023-08-02 19:26 | disposition home or self-care (01) ==
LOC: M ED 12:26 → EDBD 12:26 → M ED 19:26
DX: M25.552 Pain in left hip (principal); R07.82 Intercostal pain; W19.XXXA Unspecified fall, initial encounter; I45.81 Long QT syndrome; E11.9 Type 2 diabetes mellitus without complications; F41.9 Anxiety disorder, unspecified; F32.A Depression, unspecified; I10 Essential (primary) hypertension; J45.909 Unspecified asthma, uncomplicated; J44.9 Chronic obstructive pulmonary disease, unspecified; G47.33 Obstructive sleep apnea (adult) (pediatric); K21.9 Gastro-esophageal reflux disease without esophagitis; N18.6 End stage renal disease; M54.50 Low back pain, unspecified; E03.9 Hypothyroidism, unspecified; Z88.2 Allergy status to sulfonamides; Z88.5 Allergy status to narcotic agent; Z88.6 Allergy status to analgesic agent; Z88.8 Allergy status to other drugs, medicaments and biological substances; Z86.718 Personal history of other venous thrombosis and embolism

== ENCOUNTER 2023-08-07 12:18 | Observation (INO) | payer OTHER ==
[~2023-08-07] VITALS: Ht 170.2 cm; Wt 106.1 kg
[2023-08-07] MEDS ORDERED: GLUCAGON INJ 1MG VIAL SC PRN (14:15)
[2023-08-07] MEDS ORDERED: HEPARIN 1,000UNITS/ML 10ML VIAL (FOR RADIOLOGY & DIALYSIS ONLY) XX SCH (14:15)
[2023-08-07] MEDS ORDERED: MOM 30ML SUSPENSION UDC PO PRN (14:15)
[2023-08-07] MEDS ORDERED: DEXTROSE 50% 50ML SYRINGE IV PRN (14:15)
[2023-08-07] MEDS ORDERED: HEPARIN 1,000UNITS/ML 10ML VIAL (FOR RADIOLOGY & DIALYSIS ONLY) IV PRN (14:15)
[2023-08-07] MEDS ORDERED: SODIUM CHLORIDE 0.9% 1000ML IV PRN (14:15)
[2023-08-07] MEDS ORDERED: LIDOCAINE 1% SDV 5ML VIAL SC PRN (14:15)
[2023-08-07] MEDS ORDERED: GLUCOSE 4GM CHEW TABLET PO PRN (14:15)
[2023-08-07] MEDS: PATIROMER SORBITEX CALCIUM 8.4 GM POWDER PACKET (VELTASSA) PO ONE (14:20)
[2023-08-07 14:24] LABS: HEMOGLOBIN 10.9 g/dl (12.0-15.5); MEAN CORPUSCULAR HEMOGLOBIN 30.8 pg (27.0-33.0); MEAN CORPUSCULAR VOLUME 93.2 fl (80.0-96.0); PLATELET COUNT, AUTOMATED 195 10^3/uL (150-450); RED BLOOD COUNT 3.54 10^6/uL (4.00-5.40); WHITE BLOOD COUNT 9.3 10^3/uL (4.0-10.0)
[2023-08-07 15:55] LABS: ALBUMIN 2.8 G/DL (3.2-5.2); BILIRUBIN,TOTAL 0.5 MG/DL (0.3-1.2); CALCIUM LEVEL 7.6 MG/DL (8.3-10.6); CREATININE FOR GFR 8.73 MG/DL (0.55-1.30); GLOMERULAR FILTRATION RATE 4.9 (>45); POTASSIUM SERUM 6.7 MMOL/L (3.5-5.1); TOTAL PROTEIN 6.8 G/DL (5.7-8.2)
[2023-08-07] MEDS: ACETAMINOPHEN TAB 650MG DOSE (2X325MG) PO PRN (18:39)
[2023-08-07] MEDS: INSULIN LISPRO (NovoLOG) PER UNIT SC SCH ×2 (19:30→20:13)
[2023-08-07 20:00] VITALS: BP 202/80; TEMP 96.7; O2SAT 98
[2023-08-07] MEDS ORDERED: ASPI81CH48 PO (20:38)
[2023-08-07] MEDS ORDERED: HOME MED LIST COMPLETE! XX SCH (20:45)
[2023-08-07] MEDS: HEPARIN SOD (PORCINE) 5000UNITS/ML 1ML VIAL/SYRINGE SC SCH (21:14)
[2023-08-07] MEDS ORDERED: LIDOCAINE 5% (LIDODERM) PATCH TOP PRN (21:20)
[2023-08-07] MEDS ORDERED: EMLA CREAM 5GM TUBE (LIDOCAINE/PRILOCAINE) TOP SCH (21:20)
[2023-08-07] MEDS: **hydrALAZINE HCL** 25 MG TAB PO SCH (21:38)
[2023-08-07] MEDS: ALBUTEROL 90 MCG/ACT 8GM HFA INHALER INH PRN (21:59)
[2023-08-07] MEDS: BUDESONIDE 0.5 MG/2 ML INHALATION SUSPENSION INH SCH (21:59)
[2023-08-07] MEDS: traMADol ER 100MG TABLET (ULTRAM ER) PO SCH (22:23)
[2023-08-07 22:26] VITALS: BP 142/70
[2023-08-07] MEDS: LOPERAMIDE 2 MG CAPLET PO ONE (23:11)
[2023-08-08 00:30] VITALS: BP 122/64; TEMP 97.9; O2SAT 96
[2023-08-08 04:12] VITALS: BP 146/86; TEMP 97.6; O2SAT 95
[2023-08-08] MEDS: LEVOTHYROXINE 150MCG TABLET (0.15MG) PO SCH (05:02)
[2023-08-08] MEDS: LEVOTHYROXINE 25MCG TABLET (0.025MG) PO SCH (05:02)
[2023-08-08 06:18] LABS: CALCIUM LEVEL 7.1 MG/DL (8.3-10.6); CREATININE FOR GFR 5.35 MG/DL (0.55-1.30); GLOMERULAR FILTRATION RATE 8.6 (>45); POTASSIUM SERUM 4.6 MMOL/L (3.5-5.1)
[2023-08-08] MEDS: BUDESONIDE 0.5 MG/2 ML INHALATION SUSPENSION INH SCH (07:31)
[2023-08-08 08:00] VITALS: BP 147/77; TEMP 96.4; O2SAT 98
[2023-08-08] MEDS: ASPIRIN 81MG CHEW TABLET PO SCH (08:08)
[2023-08-08 08:09] VITALS: BP 147/77
[2023-08-08] MEDS: TORSEMIDE 20 MG TAB PO SCH (08:09)
[2023-08-08] MEDS: METOPROLOL SUCC (TopROL XL) 50MG **XL** TAB PO SCH (08:09)
[2023-08-08] MEDS: LOSARTAN 50MG TABLET PO SCH (08:09)
[2023-08-08] MEDS ORDERED: LIDO5TD TOP (09:35)
[2023-08-08 12:00] VITALS: BP 142/72; TEMP 97.4; O2SAT 97
== END 2023-08-08 16:07 | disposition home or self-care (01) ==
LOC: EDBD 12:18 → M ED 12:18 → M ED INP 12:19 → ENRESERV 14:32 → M PCU 17:57
PROVIDERS: ADMIT Student in an Organized Health Care Education/Training Program; ATTEND Student in an Organized Health Care Education/Training Program
DX: E87.5 Hyperkalemia (principal); E87.79 Other fluid overload; R11.0 Nausea; N18.6 End stage renal disease; I82.611 Acute embolism and thrombosis of superficial veins of right upper extremity; R53.1 Weakness; Z91.158 Patient's noncompliance with renal dialysis for other reason; Z91.148 Patient's other noncompliance with medication regimen for other reason; R26.2 Difficulty in walking, not elsewhere classified; E11.22 Type 2 diabetes mellitus with diabetic chronic kidney disease; J96.11 Chronic respiratory failure with hypoxia; Z99.81 Dependence on supplemental oxygen; I25.10 Atherosclerotic heart disease of native coronary artery without angina pectoris; G47.33 Obstructive sleep apnea (adult) (pediatric); F32.A Depression, unspecified; F41.9 Anxiety disorder, unspecified; I27.20 Pulmonary hypertension, unspecified; F17.200 Nicotine dependence, unspecified, uncomplicated; I12.0 Hypertensive chronic kidney disease with stage 5 chronic kidney disease or end stage renal disease; E78.5 Hyperlipidemia, unspecified; E03.9 Hypothyroidism, unspecified; N25.81 Secondary hyperparathyroidism of renal origin; I35.2 Nonrheumatic aortic (valve) stenosis with insufficiency; J44.9 Chronic obstructive pulmonary disease, unspecified; K21.9 Gastro-esophageal reflux disease without esophagitis; D63.1 Anemia in chronic kidney disease; Z87.891 Personal history of nicotine dependence; Z88.2 Allergy status to sulfonamides; Z88.8 Allergy status to other drugs, medicaments and biological substances; Z88.5 Allergy status to narcotic agent; Z79.899 Other long term (current) drug therapy; Z79.82 Long term (current) use of aspirin; Z79.890 Hormone replacement therapy
CPT/HCPCS: 71045; 80047; 80048; 80053; 85027; 87635; 93005; 94640; 96372; 99284; J1815

== ENCOUNTER 2023-08-12 08:17 | Observation (INO) | payer OTHER ==
[~2023-08-12] VITALS: Ht 170.2 cm; Wt 111.5 kg
[~2023-08-12 08:17] MED LIST changes: +ASPI81CH48 PO
[2023-08-12 09:05] LABS: BASO % 0.4 % (0.0-1.0); EOS # 0.1 10^3/uL (0.0-0.5); EOS % 1.7 % (0.0-3.0); HEMATOCRIT 33.1 % (36.0-47.0); HEMOGLOBIN 10.4 g/dl (12.0-15.5); LYMPH # 0.7 10^3/uL (1.5-5.0); LYMPH % 9.4 % (24.0-44.0); MEAN CORPUSCULAR HEMOGLOBIN 29.8 pg (27.0-33.0); MEAN CORPUSCULAR HGB CONC 31.4 g/dl (32.0-36.5); MEAN CORPUSCULAR VOLUME 94.8 fl (80.0-96.0); MONO # 0.7 10^3/uL (0.0-0.8); MONO % 9.8 % (2.0-8.0); NEUTROPHILS # 5.6 10^3/uL (1.5-8.5); NEUTROPHILS % 78.3 % (36.0-66.0); PLATELET COUNT, AUTOMATED 139 10^3/uL (150-450); RED BLOOD COUNT 3.49 10^6/uL (4.00-5.40); WHITE BLOOD COUNT 7.2 10^3/uL (4.0-10.0)
[2023-08-12 09:18] LABS: INR 1.13; PARTIAL THROMBOPLASTIN TIME 35.3 SECONDS (24.8-34.2); PROTHROMBIN TIME 14.2 SECONDS (12.5-14.5)
[2023-08-12 09:27] LABS: CK-MB VALUE MASS 3.6 NG/ML (<3.6)
[2023-08-12 09:30] LABS: ALBUMIN 2.9 G/DL (3.2-5.2); BILIRUBIN,DIRECT 0.2 MG/DL (<0.4); BILIRUBIN,TOTAL 0.4 MG/DL (0.3-1.2); CALCIUM LEVEL 7.8 MG/DL (8.3-10.6); CREATININE FOR GFR 5.18 MG/DL (0.55-1.30); POTASSIUM SERUM 4.9 MMOL/L (3.5-5.1)
[2023-08-12 09:35] LABS: PROCALCITONIN 0.64 ng/ml
[2023-08-12 09:39] LABS: MB/CK RELATIVE INDEX 5.45 (< OR =4)
[2023-08-12 10:44] LABS: CK-MB VALUE MASS 3.9 NG/ML (<3.6)
[2023-08-12 10:46] LABS: MB/CK RELATIVE INDEX 7.8 (< OR =4)
[2023-08-12] MEDS ORDERED: HOME MED LIST COMPLETE! XX SCH (12:20)
[2023-08-12 12:25] LABS: CK-MB VALUE MASS 3.9 NG/ML (<3.6)
[2023-08-12 12:32] LABS: MB/CK RELATIVE INDEX 7.95 (< OR =4)
[2023-08-12] MEDS ORDERED: SENOKOT S TAB PO PRN (14:00)
[2023-08-12] MEDS: BUDESONIDE 0.5 MG/2 ML INHALATION SUSPENSION INH SCH (16:21)
[2023-08-12] MEDS: **hydrALAZINE HCL** 25 MG TAB PO SCH (16:53)
[2023-08-12 20:40] VITALS: BP 125/77; TEMP 97.6; O2SAT 95
[2023-08-12] MEDS: traMADol ER 100MG TABLET (ULTRAM ER) PO SCH (20:58)
[2023-08-12] MEDS: LIDOCAINE 5% (LIDODERM) PATCH TOP PRN (20:58)
[2023-08-12] MEDS: HEPARIN SOD (PORCINE) 5000UNITS/ML 1ML VIAL/SYRINGE SC SCH (20:58)
[2023-08-12 23:50] VITALS: BP 123/64; TEMP 97.6; O2SAT 97
[2023-08-13 04:11] VITALS: BP 186/84; TEMP 97.6; O2SAT 92
[2023-08-13 04:34] LABS: HEMATOCRIT 32.3 % (36.0-47.0); HEMOGLOBIN 10.1 g/dl (12.0-15.5); MEAN CORPUSCULAR HEMOGLOBIN 29.8 pg (27.0-33.0); MEAN CORPUSCULAR HGB CONC 31.3 g/dl (32.0-36.5); MEAN CORPUSCULAR VOLUME 95.3 fl (80.0-96.0); PLATELET COUNT, AUTOMATED 132 10^3/uL (150-450); RED BLOOD COUNT 3.39 10^6/uL (4.00-5.40); WHITE BLOOD COUNT 7.1 10^3/uL (4.0-10.0)
[2023-08-13] MEDS: LEVOTHYROXINE 50MCG TABLET (0.05MG) PO SCH (04:40)
[2023-08-13] MEDS: LEVOTHYROXINE 125MCG TABLET (0.125MG) PO SCH (04:41)
[2023-08-13 04:57] LABS: CALCIUM LEVEL 7.1 MG/DL (8.3-10.6); CREATININE FOR GFR 6.44 MG/DL (0.55-1.30); POTASSIUM SERUM 4.9 MMOL/L (3.5-5.1)
[2023-08-13] MEDS ORDERED: SODIUM CHLORIDE 0.9% 1000ML IV PRN (06:00)
[2023-08-13] MEDS ORDERED: HEPARIN 1,000UNITS/ML 10ML VIAL (FOR RADIOLOGY & DIALYSIS ONLY) XX SCH (06:00)
[2023-08-13] MEDS ORDERED: LIDOCAINE 1% SDV 5ML VIAL SC PRN (06:00)
[2023-08-13] MEDS ORDERED: HEPARIN 1,000UNITS/ML 10ML VIAL (FOR RADIOLOGY & DIALYSIS ONLY) IV PRN (06:00)
[2023-08-13] MEDS: IPRATROPIUM 0.5MG/ALBUTEROL 2.5MG INH SOL UD 3ML (DUONEB) INH PRN (07:15)
[2023-08-13 08:00] VITALS: BP 149/80; TEMP 97; O2SAT 97
[2023-08-13 12:00] VITALS: BP 133/87; TEMP 97; O2SAT 97
[2023-08-13] MEDS: CINACALCET 30 MG TAB (SENSIPAR) PO SCH (13:27)
[2023-08-13] MEDS: CETIRIZINE (ZyrTEC) 10 MG TAB PO SCH (13:27)
[2023-08-13] MEDS: TORSEMIDE 20 MG TAB PO SCH (13:28)
[2023-08-13] MEDS: LOSARTAN 50MG TABLET PO SCH (13:29)
[2023-08-13] MEDS: METOPROLOL SUCC (TopROL XL) 50MG **XL** TAB PO SCH (13:29)
[2023-08-13] MEDS ORDERED: ISOVUE-370 76% 100ML VIAL As Ordered ONE (15:43)
[2023-08-13 20:25] VITALS: BP 126/76; TEMP 98.1; O2SAT 94
[2023-08-14] MEDS: ALBUTEROL 90 MCG/ACT 8GM HFA INHALER INH PRN (02:40)
[2023-08-14 05:46] VITALS: BP 108/57; TEMP 98.1; O2SAT 98
[2023-08-14] MEDS ORDERED: LIDOCAINE 1% SDV 5ML VIAL SC PRN (06:00)
[2023-08-14] MEDS ORDERED: SODIUM CHLORIDE 0.9% 1000ML IV PRN (06:00)
[2023-08-14] MEDS ORDERED: HEPARIN 1,000UNITS/ML 10ML VIAL (FOR RADIOLOGY & DIALYSIS ONLY) XX SCH (06:00)
[2023-08-14] MEDS ORDERED: HEPARIN 1,000UNITS/ML 10ML VIAL (FOR RADIOLOGY & DIALYSIS ONLY) IV PRN (06:00)
[2023-08-14] MEDS ORDERED: DEXTROSE 50% 50ML SYRINGE IV PRN (06:20)
[2023-08-14] MEDS ORDERED: GLUCOSE 4GM CHEW TABLET PO PRN (06:20)
[2023-08-14] MEDS ORDERED: GLUCAGON INJ 1MG VIAL SC PRN (06:20)
[2023-08-14] MEDS: INSULIN LISPRO (NovoLOG) PER UNIT SC SCH (06:48)
[2023-08-14] MEDS ORDERED: ACETAMINOPHEN TAB 650MG DOSE (2X325MG) PO PRN (08:30)
[2023-08-14 09:05] LABS: BASO % 0.6 % (0.0-1.0); EOS # 0.1 10^3/uL (0.0-0.5); EOS % 1.5 % (0.0-3.0); HEMOGLOBIN 9.2 g/dl (12.0-15.5); LYMPH # 0.5 10^3/uL (1.5-5.0); LYMPH % 8.7 % (24.0-44.0); MEAN CORPUSCULAR HEMOGLOBIN 29.3 pg (27.0-33.0); MEAN CORPUSCULAR HGB CONC 30.7 g/dl (32.0-36.5); MEAN CORPUSCULAR VOLUME 95.5 fl (80.0-96.0); MONO # 0.6 10^3/uL (0.0-0.8); NEUTROPHILS % 76.6 % (36.0-66.0); PLATELET COUNT, AUTOMATED 109 10^3/uL (150-450); RED BLOOD COUNT 3.14 10^6/uL (4.00-5.40); WHITE BLOOD COUNT 5.3 10^3/uL (4.0-10.0)
[2023-08-14 10:19] LABS: CALCIUM LEVEL 7.6 MG/DL (8.3-10.6); CREATININE FOR GFR 5.39 MG/DL (0.55-1.30); GLOMERULAR FILTRATION RATE 8.6 (>45); MAGNESIUM LEVEL 2.4 MG/DL (1.8-2.4); POTASSIUM SERUM 4.3 MMOL/L (3.5-5.1)
[2023-08-14 12:50] VITALS: BP 165/106
[2023-08-14 14:00] VITALS: BP 131/61; TEMP 97.7; O2SAT 99
[2023-08-14] MEDS ORDERED: INSULIN LISPRO (NovoLOG) PER UNIT SC SCH (21:00)
[2023-08-15] MEDS ORDERED: SODIUM CHLORIDE 0.9% 1000ML IV PRN (06:00)
[2023-08-15] MEDS ORDERED: LIDOCAINE 1% SDV 5ML VIAL SC PRN (06:00)
[2023-08-15] MEDS ORDERED: HEPARIN 1,000UNITS/ML 10ML VIAL (FOR RADIOLOGY & DIALYSIS ONLY) XX SCH (06:00)
== END 2023-08-14 16:50 | disposition home or self-care (01) ==
LOC: M ED 08:17 → M ED INP 08:18 → M PCU 20:45 → M MSPAV 08-13 20:19
PROVIDERS: ADMIT Internal Medicine; ATTEND Student in an Organized Health Care Education/Training Program
DX: R07.89 Other chest pain (principal); N18.6 End stage renal disease; I12.0 Hypertensive chronic kidney disease with stage 5 chronic kidney disease or end stage renal disease; D63.1 Anemia in chronic kidney disease; Z91.158 Patient's noncompliance with renal dialysis for other reason; J44.9 Chronic obstructive pulmonary disease, unspecified; Z99.81 Dependence on supplemental oxygen; F41.9 Anxiety disorder, unspecified; F32.A Depression, unspecified; F17.218 Nicotine dependence, cigarettes, with other nicotine-induced disorders; R60.0 Localized edema; I25.10 Atherosclerotic heart disease of native coronary artery without angina pectoris; G89.29 Other chronic pain; J96.11 Chronic respiratory failure with hypoxia; E78.5 Hyperlipidemia, unspecified; E11.9 Type 2 diabetes mellitus without complications; G47.33 Obstructive sleep apnea (adult) (pediatric); E03.9 Hypothyroidism, unspecified; K21.9 Gastro-esophageal reflux disease without esophagitis; Z79.4 Long term (current) use of insulin; Z79.899 Other long term (current) drug therapy; Z88.2 Allergy status to sulfonamides; Z88.1 Allergy status to other antibiotic agents; Z88.8 Allergy status to other drugs, medicaments and biological substances; Z88.5 Allergy status to narcotic agent
CPT/HCPCS: 71045; 80048; 80076; 82550; 82553; 83690; 83735; 83880; 84145; 85025; 85027; 85610; 85730; 87040; 87486; 87581; 87633; 87798; 93005; 93041; 94640; 94760; 99285; J1815

== ENCOUNTER 2023-08-18 11:26 | Emergency (ER) | payer OTHER ==
[~2023-08-18] VITALS: Ht 170.2 cm; Wt 90.9 kg
[2023-08-18 16:01] VITALS: BP 179/81; TEMP 98.4; O2SAT 100
== END 2023-08-18 16:15 | disposition home or self-care (01) ==
LOC: M ED 11:26 → EDBD 11:26 → M ED 16:15
DX: R06.02 Shortness of breath (principal); E11.9 Type 2 diabetes mellitus without complications; I11.0 Hypertensive heart disease with heart failure; N18.6 End stage renal disease; Z99.2 Dependence on renal dialysis; Z87.891 Personal history of nicotine dependence; Z79.4 Long term (current) use of insulin; Z79.899 Other long term (current) drug therapy; Z88.2 Allergy status to sulfonamides; Z88.5 Allergy status to narcotic agent; Z88.6 Allergy status to analgesic agent; Z88.8 Allergy status to other drugs, medicaments and biological substances

== ENCOUNTER 2023-08-21 03:15 | Inpatient (IN) | payer OTHER ==
[~2023-08-21] VITALS: Ht 170.2 cm; Wt 90.7 kg
[2023-08-21 04:04] LABS: BASO % 0.3 % (0.0-1.0); HEMATOCRIT 40.8 % (36.0-47.0); HEMOGLOBIN 13.1 g/dl (12.0-15.5); LYMPH # 0.3 10^3/uL (1.5-5.0); LYMPH % 4.4 % (24.0-44.0); MEAN CORPUSCULAR HEMOGLOBIN 29.2 pg (27.0-33.0); MEAN CORPUSCULAR HGB CONC 32.1 g/dl (32.0-36.5); MEAN CORPUSCULAR VOLUME 91.1 fl (80.0-96.0); MONO # 0.4 10^3/uL (0.0-0.8); MONO % 5.5 % (2.0-8.0); NEUTROPHILS # 6.3 10^3/uL (1.5-8.5); NEUTROPHILS % 89.2 % (36.0-66.0); PLATELET COUNT, AUTOMATED 201 10^3/uL (150-450); RED BLOOD COUNT 4.48 10^6/uL (4.00-5.40); WHITE BLOOD COUNT 7.1 10^3/uL (4.0-10.0)
[2023-08-21] MEDS: ONDANSETRON 4MG 2ML VIAL IV ONE (04:06)
[2023-08-21 04:35] LABS: PROCALCITONIN 1.17 ng/ml
[2023-08-21 04:56] LABS: ALBUMIN 2.6 G/DL (3.2-5.2); BILIRUBIN,TOTAL 0.5 MG/DL (0.3-1.2); CALCIUM LEVEL 7.1 MG/DL (8.3-10.6); CREATININE FOR GFR 8.78 MG/DL (0.55-1.30); GLOMERULAR FILTRATION RATE 4.9 (>45); POTASSIUM SERUM 6.8 MMOL/L (3.5-5.1); TOTAL PROTEIN 6.6 G/DL (5.7-8.2)
[2023-08-21] MEDS: SODIUM BICARBONATE 8.4% INJ 50ML SYRINGE IV STA (05:13)
[2023-08-21] MEDS: CALCIUM GLUCONATE 1,000MG/10ML VIAL (100MG/ML) IV ONE (05:15)
[2023-08-21] MEDS: PATIROMER SORBITEX CALCIUM 8.4 GM POWDER PACKET (VELTASSA) PO ONE (05:37)
[2023-08-21] MEDS ORDERED: MOM 30ML SUSPENSION UDC PO PRN (05:45)
[2023-08-21] MEDS ORDERED: MAG SULF 1GM/100ML (MAG RUN) 1 GM in IV 1 EA IV ONE (05:50)
[2023-08-21] MEDS: LEVOTHYROXINE 75MCG TABLET (0.075MG) PO SCH (06:00)
[2023-08-21] MEDS: LEVOTHYROXINE 100MCG TABLET (0.1MG) PO SCH (06:00)
[2023-08-21] MEDS: DEXTROSE 50% 50ML SYRINGE IV STA (06:29)
[2023-08-21] MEDS: HumuLIN R (REGULAR) INSULIN (NovoLIN R) **100U/ML** PER UNIT IV STA (06:30)
[2023-08-21] MEDS: cefTRIAXone SOD 1 GM in D5W MINI-BAG PLUS 50 ML IV SCH (06:31)
[2023-08-21] MEDS ORDERED: ASPI-615 PO (06:46)
[2023-08-21] MEDS ORDERED: HOME MED LIST COMPLETE! XX SCH (06:50)
[2023-08-21 07:10] LABS: CREATININE FOR GFR 8.82 MG/DL (0.55-1.30); GLOMERULAR FILTRATION RATE 4.8 (>45)
[2023-08-21] MEDS ORDERED: SODIUM CHLORIDE 0.9% 1000ML IV PRN (08:20)
[2023-08-21] MEDS ORDERED: HEPARIN 1,000UNITS/ML 10ML VIAL (FOR RADIOLOGY & DIALYSIS ONLY) XX SCH (08:20)
[2023-08-21] MEDS ORDERED: LIDOCAINE 1% SDV 5ML VIAL SC PRN (08:20)
[2023-08-21] MEDS: **hydrALAZINE HCL** 25 MG TAB PO SCH (09:00)
[2023-08-21] MEDS: HEPARIN SOD (PORCINE) 5000UNITS/ML 1ML VIAL/SYRINGE SC SCH (09:00)
[2023-08-21] MEDS: DOXYCYCLINE HYCLATE 100MG TABLET PO SCH (09:00)
[2023-08-21] MEDS ORDERED: MIRALAX *UNIT DOSE* 17GM PACKET PO PRN (10:40)
[2023-08-21] MEDS ORDERED: SENOKOT S TAB PO PRN (10:40)
[2023-08-21] MEDS ORDERED: LIDOCAINE 5% (LIDODERM) PATCH TOP PRN (10:40)
[2023-08-21] MEDS ORDERED: GLUCOSE 4GM CHEW TABLET PO PRN (10:45)
[2023-08-21] MEDS ORDERED: GLUCAGON INJ 1MG VIAL SC PRN (10:45)
[2023-08-21] MEDS ORDERED: DEXTROSE 50% 50ML SYRINGE IV PRN (10:45)
[2023-08-21] MEDS: INSULIN LISPRO (NovoLOG) PER UNIT SC SCH ×2 (12:00→21:57)
[2023-08-21] MEDS: (RENVELA) SEVELAMER **CARBONate** 800 MG TAB PO SCH (12:30)
[2023-08-21 13:31] VITALS: BP 133/57; TEMP 97.8; O2SAT 98
[2023-08-21] MEDS: BUDESONIDE 0.5 MG/2 ML INHALATION SUSPENSION INH SCH (13:47)
[2023-08-21] MEDS: ADVAIR HFA 230/21MCG INHALER INH SCH (13:51)
[2023-08-21] MEDS: ALBUTEROL 90 MCG/ACT 8GM HFA INHALER INH PRN (13:51)
[2023-08-21] MEDS: CINACALCET 30 MG TAB (SENSIPAR) PO SCH (15:20)
[2023-08-21] MEDS: METOPROLOL SUCC (TopROL XL) 50MG **XL** TAB PO SCH (15:20)
[2023-08-21] MEDS: CETIRIZINE (ZyrTEC) 10 MG TAB PO SCH (15:21)
[2023-08-21] MEDS: TORSEMIDE 20 MG TAB PO SCH (15:21)
[2023-08-21] MEDS: AZITHROMYCIN INJ 500 MG, VIAL MATE ADAPTER 1 EACH in NS 250 ML IV ONE (15:22)
[2023-08-21 16:00] VITALS: BP 113/53; TEMP 98; O2SAT 96
[2023-08-21] MEDS: PROCHLORPERAZINE 10MG 2ML VIAL IV PRN (17:02)
[2023-08-21 18:58] LABS: ALBUMIN 2.3 G/DL (3.2-5.2); CALCIUM LEVEL 6.9 MG/DL (8.3-10.6); CREATININE FOR GFR 5.71 MG/DL (0.55-1.30); PHOSPHORUS LEVEL 10.5 MG/DL (2.4-5.1); POTASSIUM SERUM 4.6 MMOL/L (3.5-5.1)
[2023-08-21 19:43] VITALS: BP 126/66; TEMP 98.2; O2SAT 97
[2023-08-21] MEDS: traMADol ER 100MG TABLET (ULTRAM ER) PO SCH (21:55)
[2023-08-21] MEDS: ASPIRIN 81MG ENTERIC TABLET PO SCH (21:55)
[2023-08-21] MEDS: CEFDINIR 300 MG CAP (OMNICEF) PO SCH (23:25)
[2023-08-22 00:08] VITALS: BP 102/51; TEMP 98.5; O2SAT 96
[2023-08-22] MEDS: RAMELTEON 8 MG TAB (ROZEREM) PO PRN (02:27)
[2023-08-22 03:21] VITALS: BP 114/57; TEMP 98; O2SAT 97
[2023-08-22 05:30] LABS: HEMATOCRIT 31.8 % (36.0-47.0); MEAN CORPUSCULAR HEMOGLOBIN 29.4 pg (27.0-33.0); MEAN CORPUSCULAR HGB CONC 32.1 g/dl (32.0-36.5); MEAN CORPUSCULAR VOLUME 91.6 fl (80.0-96.0); PLATELET COUNT, AUTOMATED 190 10^3/uL (150-450); RED BLOOD COUNT 3.47 10^6/uL (4.00-5.40); WHITE BLOOD COUNT 8.1 10^3/uL (4.0-10.0)
[2023-08-22 05:34] LABS: HEMOGLOBIN 10.2 g/dl (12.0-15.5)
[2023-08-22 05:59] LABS: ALBUMIN 2.7 G/DL (3.2-5.2); BILIRUBIN,TOTAL 0.3 MG/DL (0.3-1.2); CALCIUM LEVEL 6.7 MG/DL (8.3-10.6); CREATININE FOR GFR 6.35 MG/DL (0.55-1.30); GLOMERULAR FILTRATION RATE 7.1 (>45); MAGNESIUM LEVEL 2.6 MG/DL (1.8-2.4); POTASSIUM SERUM 4.7 MMOL/L (3.5-5.1); TOTAL PROTEIN 6.2 G/DL (5.7-8.2)
[2023-08-22] MEDS ORDERED: LIDOCAINE 1% SDV 5ML VIAL SC PRN (06:00)
[2023-08-22] MEDS ORDERED: cefTRIAXone SOD 1 GM in D5W MINI-BAG PLUS 50 ML IV SCH (06:00)
[2023-08-22] MEDS ORDERED: HEPARIN 1,000UNITS/ML 10ML VIAL (FOR RADIOLOGY & DIALYSIS ONLY) XX SCH (06:00)
[2023-08-22] MEDS ORDERED: SODIUM CHLORIDE 0.9% 1000ML IV PRN (06:00)
[2023-08-22] MEDS ORDERED: HEPARIN 1,000UNITS/ML 10ML VIAL (FOR RADIOLOGY & DIALYSIS ONLY) IV PRN (06:00)
[2023-08-22 08:00] VITALS: BP 122/65; TEMP 97.6; O2SAT 98
[2023-08-22] MEDS ORDERED: LOSARTAN 50MG TABLET PO SCH (09:00)
[2023-08-22] MEDS ORDERED: AZITHROMYCIN 250MG TABLET PO SCH (09:00)
[2023-08-22] MEDS: ACETAMINOPHEN TAB 650MG DOSE (2X325MG) PO PRN (11:09)
[2023-08-22] MEDS ORDERED: CEFD300CAP PO (11:35)
[2023-08-22] MEDS ORDERED: DOXY100T PO (11:35)
[2023-08-22 13:27] VITALS: BP 112/59
[2023-08-22] MEDS: CEFDINIR 300 MG CAP (OMNICEF) PO SCH (15:56)
== END 2023-08-22 16:10 | disposition home or self-care (01) | DRG 425 ==
LOC: M ED 03:15 → M ED INP 05:41 → M PCU 12:35
PROVIDERS: ADMIT Internal Medicine; ATTEND Internal Medicine
DX: E87.5 Hyperkalemia (principal); I13.2 Hypertensive heart and chronic kidney disease with heart failure and with stage 5 chronic kidney disease, or end stage renal disease; J18.9 Pneumonia, unspecified organism; N18.6 End stage renal disease; E11.22 Type 2 diabetes mellitus with diabetic chronic kidney disease; E87.20 Acidosis, unspecified; I50.9 Heart failure, unspecified; J44.0 Chronic obstructive pulmonary disease with (acute) lower respiratory infection; N25.81 Secondary hyperparathyroidism of renal origin; F41.9 Anxiety disorder, unspecified; I35.0 Nonrheumatic aortic (valve) stenosis; D63.1 Anemia in chronic kidney disease; E78.5 Hyperlipidemia, unspecified; I25.10 Atherosclerotic heart disease of native coronary artery without angina pectoris; I27.20 Pulmonary hypertension, unspecified; G47.33 Obstructive sleep apnea (adult) (pediatric); M54.9 Dorsalgia, unspecified; G89.29 Other chronic pain; Z90.79 Acquired absence of other genital organ(s); Z90.49 Acquired absence of other specified parts of digestive tract; Z87.891 Personal history of nicotine dependence; Z79.82 Long term (current) use of aspirin; Z79.2 Long term (current) use of antibiotics; Z79.4 Long term (current) use of insulin; Z79.890 Hormone replacement therapy; Z79.899 Other long term (current) drug therapy; Z99.2 Dependence on renal dialysis; Z88.2 Allergy status to sulfonamides; Z88.5 Allergy status to narcotic agent; Z88.6 Allergy status to analgesic agent; Z88.8 Allergy status to other drugs, medicaments and biological substances; Z95.5 Presence of coronary angioplasty implant and graft; K21.9 Gastro-esophageal reflux disease without esophagitis

== ENCOUNTER 2023-08-29 21:08 | Inpatient (IN) | payer MEDICAID, OTHER ==
[~2023-08-29] VITALS: Ht 170.2 cm; Wt 115.6 kg
[~2023-08-29 21:08] MED LIST changes: +ASPI-615 PO
[2023-08-29] MEDS: IPRATROPIUM 0.5MG/ALBUTEROL 2.5MG INH SOL UD 3ML (DUONEB) NEB PRN (21:59)
[2023-08-29 23:27] LABS: VENOUS BASE EXCESS -4.8 (-2.0-2.0); VENOUS HCO3 22.1 MMOL/L (23.0-27.0); VENOUS O2 SATURATION 80.1 % (60.0-80.0); VENOUS PARTIAL PRESSURE CO2 48.7 mmHg (38.0-50.0); VENOUS PARTIAL PRESSURE O2 53.7 mmHg (30.0-50.0); VENOUS PH 7.275 UNITS (7.330-7.430); VENOUS STANDARD HCO3 20.2 MMOL/L; VENOUS TOTAL CO2 23.6 MMOL/L (24.0-28.0)
[2023-08-29 23:37] LABS: BASO # 0.1 10^3/uL (0.0-0.2); EOS # 0.1 10^3/uL (0.0-0.5); EOS % 1.5 % (0.0-3.0); HEMATOCRIT 32.1 % (36.0-47.0); HEMOGLOBIN 10.2 g/dl (12.0-15.5); LYMPH # 0.7 10^3/uL (1.5-5.0); LYMPH % 10.6 % (24.0-44.0); MEAN CORPUSCULAR HEMOGLOBIN 29.5 pg (27.0-33.0); MEAN CORPUSCULAR HGB CONC 31.8 g/dl (32.0-36.5); MEAN CORPUSCULAR VOLUME 92.8 fl (80.0-96.0); MONO # 0.7 10^3/uL (0.0-0.8); NEUTROPHILS # 5.2 10^3/uL (1.5-8.5); NEUTROPHILS % 76.6 % (36.0-66.0); PLATELET COUNT, AUTOMATED 146 10^3/uL (150-450); RED BLOOD COUNT 3.46 10^6/uL (4.00-5.40); WHITE BLOOD COUNT 6.7 10^3/uL (4.0-10.0)
[2023-08-29 23:56] LABS: CK-MB VALUE MASS 5.2 NG/ML (<3.6)
[2023-08-29 23:57] LABS: MB/CK RELATIVE INDEX 4.16 (< OR =4)
[2023-08-30] VITALS (8 sets, daily range): BP systolic 114–149; BP diastolic 58–75; TEMP 96.4–98.1; O2SAT 94–99
[2023-08-30 00:01] LABS: THYROID STIMULATING HORMONE 36.257 uIU/ML (0.55-4.78)
[2023-08-30 00:07] LABS: ALBUMIN 2.9 G/DL (3.2-5.2); BILIRUBIN,DIRECT 0.2 MG/DL (<0.4); BILIRUBIN,TOTAL 0.3 MG/DL (0.3-1.2); CREATININE FOR GFR 9.08 MG/DL (0.55-1.30); GLOMERULAR FILTRATION RATE 4.7 (>45); POTASSIUM SERUM 6.7 MMOL/L (3.5-5.1); TOTAL PROTEIN 6.6 G/DL (5.7-8.2)
[2023-08-30] MEDS: DEXTROSE 50% 50ML SYRINGE IV ONE (00:30)
[2023-08-30] MEDS: HumuLIN R (REGULAR) INSULIN (NovoLIN R) **100U/ML** PER UNIT IV ONE (00:30)
[2023-08-30] MEDS: SODIUM BICARBONATE 8.4% INJ 50ML SYRINGE IV ONE (00:30)
[2023-08-30] MEDS ORDERED: NYSTATIN 100,000 UNITS/GM TOPICAL PWD 15GM TOP SCH (01:08)
[2023-08-30] MEDS: SOD POLYSTYRENE SULFONATE SUSP 15GM 60ML UD PO ONE (01:11)
[2023-08-30] MEDS: CALCIUM GLUCONATE 1,000MG/10ML VIAL (100MG/ML) IV ONE (01:12)
[2023-08-30] MEDS: PATIROMER SORBITEX CALCIUM 8.4 GM POWDER PACKET (VELTASSA) PO ONE (01:17)
[2023-08-30] MEDS: FUROSEMIDE 40 MG TAB PO ONE (01:17)
[2023-08-30] MEDS ORDERED: MOM 30ML SUSPENSION UDC PO PRN (02:45)
[2023-08-30] MEDS ORDERED: MAALOX 30 ML SUSP *UDC PO PRN (02:45)
[2023-08-30] MEDS ORDERED: CEFD300CAP PO (04:55)
[2023-08-30] MEDS ORDERED: DOXY100T2 PO (04:55)
[2023-08-30] MEDS ORDERED: HOME MED LIST COMPLETE! XX SCH (05:00)
[2023-08-30] MEDS: HEPARIN SOD (PORCINE) 5000UNITS/ML 1ML VIAL/SYRINGE SC SCH (05:34)
[2023-08-30 06:10] LABS: CREATININE FOR GFR 9.29 MG/DL (0.55-1.30); GLOMERULAR FILTRATION RATE 4.6 (>45); POTASSIUM SERUM 6.3 MMOL/L (3.5-5.1)
[2023-08-30] MEDS ORDERED: LIDOCAINE 1% SDV 5ML VIAL SC PRN (06:10)
[2023-08-30] MEDS ORDERED: HEPARIN 1,000UNITS/ML 10ML VIAL (FOR RADIOLOGY & DIALYSIS ONLY) IV PRN (06:10)
[2023-08-30] MEDS ORDERED: SODIUM CHLORIDE 0.9% 1000ML IV PRN (06:10)
[2023-08-30] MEDS ORDERED: HEPARIN 1,000UNITS/ML 10ML VIAL (FOR RADIOLOGY & DIALYSIS ONLY) XX SCH (06:10)
[2023-08-30] MEDS: ACETAMINOPHEN TAB 650MG DOSE (2X325MG) PO PRN (07:52)
[2023-08-30 12:36] LABS: PHOSPHORUS LEVEL 15.2 MG/DL (2.4-5.1)
[2023-08-30] MEDS: (RENVELA) SEVELAMER **CARBONate** 800 MG TAB PO SCH (13:21)
[2023-08-30] MEDS ORDERED: SENOKOT S TAB PO PRN (14:15)
[2023-08-30] MEDS: LEVOTHYROXINE 25MCG TABLET (0.025MG) PO SCH (14:59)
[2023-08-30] MEDS: LEVOTHYROXINE 150MCG TABLET (0.15MG) PO SCH (14:59)
[2023-08-30] MEDS: diphenhydrAMINE 25MG CAP PO PRN (15:20)
[2023-08-30] MEDS: METOPROLOL SUCC (TopROL XL) 50MG **XL** TAB PO SCH (15:20)
[2023-08-30] MEDS: CETIRIZINE (ZyrTEC) 10 MG TAB PO SCH (15:21)
[2023-08-30] MEDS: TORSEMIDE 20 MG TAB PO SCH (15:21)
[2023-08-30] MEDS: CINACALCET 30 MG TAB (SENSIPAR) PO SCH (15:21)
[2023-08-30] MEDS: TIOTROPIUM INHALER/CAPSULE (SPIRIVA) INH SCH (15:32)
[2023-08-30] MEDS: BUDESONIDE 0.5 MG/2 ML INHALATION SUSPENSION INH SCH (16:17)
[2023-08-30] MEDS: ALBUTEROL SULFATE 2.5MG/0.5ML INH NEB SOLN NEB PRN (16:17)
[2023-08-30] MEDS: ADVAIR HFA 230/21MCG INHALER INH SCH (19:19)
[2023-08-30] MEDS ORDERED: SYMBICORT 160/4.5MCG INHALER 6GM INH SCH (20:00)
[2023-08-30] MEDS: ASPIRIN 81MG ENTERIC TABLET PO SCH (20:26)
[2023-08-31 01:05] VITALS: BP 85/58; TEMP 97.7; O2SAT 99
[2023-08-31 04:32] VITALS: BP 126/85; TEMP 97.5; O2SAT 96
[2023-08-31] MEDS ORDERED: LIDOCAINE 1% SDV 5ML VIAL SC PRN (06:00)
[2023-08-31] MEDS ORDERED: SODIUM CHLORIDE 0.9% 1000ML IV PRN (06:00)
[2023-08-31] MEDS ORDERED: HEPARIN 1,000UNITS/ML 10ML VIAL (FOR RADIOLOGY & DIALYSIS ONLY) XX SCH (06:00)
[2023-08-31 06:52] LABS: HEMATOCRIT 29.4 % (36.0-47.0); HEMOGLOBIN 9.3 g/dl (12.0-15.5); MEAN CORPUSCULAR HGB CONC 31.6 g/dl (32.0-36.5); MEAN CORPUSCULAR VOLUME 94.8 fl (80.0-96.0); PLATELET COUNT, AUTOMATED 122 10^3/uL (150-450); WHITE BLOOD COUNT 5.7 10^3/uL (4.0-10.0)
[2023-08-31 07:17] LABS: ALBUMIN 2.9 G/DL (3.2-5.2); BILIRUBIN,TOTAL 0.3 MG/DL (0.3-1.2); CALCIUM LEVEL 7.7 MG/DL (8.3-10.6); CREATININE FOR GFR 6.73 MG/DL (0.55-1.30); GLOMERULAR FILTRATION RATE 6.6 (>45); POTASSIUM SERUM 4.6 MMOL/L (3.5-5.1); TOTAL PROTEIN 6.5 G/DL (5.7-8.2)
[2023-08-31] MEDS: HEPARIN SOD (PORCINE) 5000UNITS/ML 1ML VIAL/SYRINGE SQ SCH (09:00)
[2023-08-31] MEDS ORDERED: PILL CUTTER 1 EACH XX ONE (11:51)
[2023-08-31] MEDS: MORPHINE 30 MG TAB **MSIR PO ONE (11:54)
[2023-08-31 20:02] VITALS: BP 162/92; TEMP 97.9; O2SAT 95
[2023-08-31] MEDS: traMADol ER 100MG TABLET (ULTRAM ER) PO SCH (20:58)
[2023-09-01 05:12] VITALS: BP 123/76; TEMP 97.5; O2SAT 99
[2023-09-01 05:12] LABS: BASO # 0.1 10^3/uL (0.0-0.2); EOS # 0.1 10^3/uL (0.0-0.5); HEMATOCRIT 30.6 % (36.0-47.0); HEMOGLOBIN 9.5 g/dl (12.0-15.5); LYMPH # 0.6 10^3/uL (1.5-5.0); LYMPH % 9.2 % (24.0-44.0); MEAN CORPUSCULAR HEMOGLOBIN 29.5 pg (27.0-33.0); MONO # 0.9 10^3/uL (0.0-0.8); MONO % 14.8 % (2.0-8.0); NEUTROPHILS # 4.4 10^3/uL (1.5-8.5); NEUTROPHILS % 72.7 % (36.0-66.0); PLATELET COUNT, AUTOMATED 131 10^3/uL (150-450); RED BLOOD COUNT 3.22 10^6/uL (4.00-5.40); WHITE BLOOD COUNT 6.1 10^3/uL (4.0-10.0)
[2023-09-01 05:23] LABS: INR 1.11; PARTIAL THROMBOPLASTIN TIME 35.5 SECONDS (24.8-34.2)
[2023-09-01 05:38] LABS: BILIRUBIN,TOTAL 0.5 MG/DL (0.3-1.2); CALCIUM LEVEL 7.9 MG/DL (8.3-10.6); CREATININE FOR GFR 4.62 MG/DL (0.55-1.30); GLOMERULAR FILTRATION RATE 10.2 (>45); MAGNESIUM LEVEL 2.4 MG/DL (1.8-2.4); PHOSPHORUS LEVEL 7.2 MG/DL (2.4-5.1); TOTAL PROTEIN 7.1 G/DL (5.7-8.2)
[2023-09-01] MEDS ORDERED: ALPRAZolam 0.25 MG TAB PO PRN (12:40)
[2023-09-01] MEDS: FLUCONAZOLE 50MG TABLET PO SCH (13:49)
[2023-09-01] MEDS: ALPRAZolam 0.25 MG TAB PO PRN (13:50)
[2023-09-01 14:00] VITALS: BP 167/55; TEMP 97.5; O2SAT 99
[2023-09-01 22:10] VITALS: BP 134/80; TEMP 97.3; O2SAT 99
[2023-09-02] MEDS ORDERED: SODIUM CHLORIDE 0.9% 1000ML IV PRN (06:00)
[2023-09-02] MEDS ORDERED: HEPARIN 1,000UNITS/ML 10ML VIAL (FOR RADIOLOGY & DIALYSIS ONLY) XX SCH (06:00)
[2023-09-02] MEDS ORDERED: LIDOCAINE 1% SDV 5ML VIAL SC PRN (06:00)
[2023-09-02 06:20] VITALS: BP 141/79; TEMP 97; O2SAT 98
[2023-09-02] MEDS: NYSTATIN 100,000 UNITS/GM TOPICAL PWD 15GM TOP SCH (11:05)
[2023-09-02 18:45] VITALS: BP 122/74; TEMP 97.5; O2SAT 99
[2023-09-02] MEDS ORDERED: ANALGESIC BALM CRM 3OZ TOP PRN (21:05)
[2023-09-02 22:11] VITALS: BP 163/80; TEMP 97.2; O2SAT 97
[2023-09-03 04:40] VITALS: BP 167/81; TEMP 97.7; O2SAT 99
[2023-09-03] MEDS ORDERED: LIDOCAINE 1% SDV 5ML VIAL SC PRN (06:00)
[2023-09-03] MEDS ORDERED: HEPARIN 1,000UNITS/ML 10ML VIAL (FOR RADIOLOGY & DIALYSIS ONLY) IV PRN (06:00)
[2023-09-03] MEDS ORDERED: SODIUM CHLORIDE 0.9% 1000ML IV PRN (06:00)
[2023-09-03] MEDS ORDERED: HEPARIN 1,000UNITS/ML 10ML VIAL (FOR RADIOLOGY & DIALYSIS ONLY) XX SCH (06:00)
[2023-09-03 14:00] VITALS: BP 159/82; TEMP 97.5; O2SAT 100
[2023-09-03 22:00] VITALS: BP 155/82; TEMP 97.9; O2SAT 98
[2023-09-04] MEDS: SODIUM CHLORIDE 0.9% NASAL GEL 15GM (AYR) PRN (01:41)
[2023-09-04 04:20] VITALS: BP 156/78; TEMP 97.7; O2SAT 98
[2023-09-04] MEDS ORDERED: HEPARIN 1,000UNITS/ML 10ML VIAL (FOR RADIOLOGY & DIALYSIS ONLY) XX SCH (06:00)
[2023-09-04] MEDS ORDERED: LIDOCAINE 1% SDV 5ML VIAL SC PRN (06:00)
[2023-09-04] MEDS ORDERED: SODIUM CHLORIDE 0.9% 1000ML IV PRN (06:00)
[2023-09-04 12:40] LABS: BASO # 0.1 10^3/uL (0.0-0.2); BASO % 0.7 % (0.0-1.0); EOS # 0.1 10^3/uL (0.0-0.5); EOS % 1.4 % (0.0-3.0); HEMATOCRIT 30.6 % (36.0-47.0); HEMOGLOBIN 9.5 g/dl (12.0-15.5); LYMPH # 0.5 10^3/uL (1.5-5.0); LYMPH % 6.9 % (24.0-44.0); MEAN CORPUSCULAR HEMOGLOBIN 29.1 pg (27.0-33.0); MEAN CORPUSCULAR VOLUME 93.9 fl (80.0-96.0); MONO # 0.8 10^3/uL (0.0-0.8); MONO % 11.2 % (2.0-8.0); NEUTROPHILS # 5.7 10^3/uL (1.5-8.5); NEUTROPHILS % 79.4 % (36.0-66.0); PLATELET COUNT, AUTOMATED 107 10^3/uL (150-450); RED BLOOD COUNT 3.26 10^6/uL (4.00-5.40); WHITE BLOOD COUNT 7.2 10^3/uL (4.0-10.0)
[2023-09-04 13:15] LABS: CALCIUM LEVEL 7.9 MG/DL (8.3-10.6); CREATININE FOR GFR 2.14 MG/DL (0.55-1.30); GLOMERULAR FILTRATION RATE 24.9 (>45)
[2023-09-04 14:00] VITALS: BP 155/69; TEMP 97.2; O2SAT 98
[2023-09-04 22:00] VITALS: BP 152/69; TEMP 98.6; O2SAT 96
[2023-09-05 06:00] VITALS: BP 161/91; TEMP 97.3; O2SAT 99
[2023-09-05 06:30] VITALS: BP 130/90
[2023-09-05 14:00] VITALS: BP 142/66; TEMP 98; O2SAT 92
[2023-09-05 22:00] VITALS: BP 147/65; TEMP 97.8; O2SAT 98
[2023-09-06 05:53] VITALS: BP 151/73; TEMP 97.3; O2SAT 99
[2023-09-06] MEDS ORDERED: HEPARIN 1,000UNITS/ML 10ML VIAL (FOR RADIOLOGY & DIALYSIS ONLY) IV PRN (06:00)
[2023-09-06] MEDS ORDERED: LIDOCAINE 1% SDV 5ML VIAL SC PRN (06:00)
[2023-09-06] MEDS ORDERED: HEPARIN 1,000UNITS/ML 10ML VIAL (FOR RADIOLOGY & DIALYSIS ONLY) XX SCH (06:00)
[2023-09-06] MEDS ORDERED: SODIUM CHLORIDE 0.9% 1000ML IV PRN (06:00)
[2023-09-06] MEDS: MORPHINE 30 MG TAB **MSIR PO ONE (11:01)
[2023-09-06 14:15] VITALS: BP 143/86; TEMP 97; O2SAT 96
[2023-09-06 20:00] VITALS: BP 138/86; TEMP 97.5; O2SAT 93
[2023-09-07] MEDS ORDERED: DEXTROSE 50% 50ML SYRINGE IV PRN (00:10)
[2023-09-07] MEDS ORDERED: GLUCAGON INJ 1MG VIAL SC PRN (00:10)
[2023-09-07] MEDS ORDERED: GLUCOSE 4GM CHEW TABLET PO PRN (00:10)
[2023-09-07 06:00] VITALS: BP 131/58; TEMP 97.7; O2SAT 96
[2023-09-07 06:14] LABS: HEMATOCRIT 30.6 % (36.0-47.0); HEMOGLOBIN 9.7 g/dl (12.0-15.5); MEAN CORPUSCULAR HEMOGLOBIN 29.7 pg (27.0-33.0); MEAN CORPUSCULAR HGB CONC 31.7 g/dl (32.0-36.5); MEAN CORPUSCULAR VOLUME 93.6 fl (80.0-96.0); PLATELET COUNT, AUTOMATED 109 10^3/uL (150-450); RED BLOOD COUNT 3.27 10^6/uL (4.00-5.40); WHITE BLOOD COUNT 7.2 10^3/uL (4.0-10.0)
[2023-09-07 06:41] LABS: CALCIUM LEVEL 8.1 MG/DL (8.3-10.6); CREATININE FOR GFR 4.16 MG/DL (0.55-1.30); GLOMERULAR FILTRATION RATE 11.5 (>45); POTASSIUM SERUM 3.8 MMOL/L (3.5-5.1)
[2023-09-07] MEDS ORDERED: HEPARIN 1,000UNITS/ML 10ML VIAL (FOR RADIOLOGY & DIALYSIS ONLY) XX SCH (07:10)
[2023-09-07] MEDS ORDERED: SODIUM CHLORIDE 0.9% 1000ML IV PRN (07:10)
[2023-09-07] MEDS ORDERED: LIDOCAINE 1% SDV 5ML VIAL SC PRN (07:10)
[2023-09-07] MEDS ORDERED: HEPARIN 1,000UNITS/ML 10ML VIAL (FOR RADIOLOGY & DIALYSIS ONLY) IV PRN (07:10)
[2023-09-07] MEDS: INSULIN LISPRO (NovoLOG) PER UNIT SC SCH ×2 (07:30→21:00)
[2023-09-07 14:00] VITALS: BP 141/72; TEMP 97.2; O2SAT 99
[2023-09-07 21:13] VITALS: BP 124/55; TEMP 97.5; O2SAT 96
[2023-09-08 06:00] VITALS: BP 150/90; TEMP 97.5; O2SAT 93
[2023-09-08] MEDS ORDERED: TRAM100T21 PO (10:27)
[2023-09-08] MEDS ORDERED: NYST10006 TOP (10:30)
[2023-09-08 10:53] VITALS: BP 153/89
== END 2023-09-08 13:53 | disposition home or self-care (01) | DRG 194 ==
LOC: M ED 21:08 → M ED INP 08-30 02:55 → ENRESERV 08-30 03:26 → M PCU 08-30 04:54 → M MSPAV 08-31 01:04
PROVIDERS: ADMIT Family Medicine; ATTEND Internal Medicine Nephrology
PROC: 5A1D70Z Performance of Urinary Filtration, Intermittent, Less than 6 Hours Per Day (ICD-10-PCS; principal; 2023-08-30)
DX: I13.2 Hypertensive heart and chronic kidney disease with heart failure and with stage 5 chronic kidney disease, or end stage renal disease (principal); I50.33 Acute on chronic diastolic (congestive) heart failure; J96.11 Chronic respiratory failure with hypoxia; E87.5 Hyperkalemia; N25.81 Secondary hyperparathyroidism of renal origin; I27.20 Pulmonary hypertension, unspecified; N18.6 End stage renal disease; E11.22 Type 2 diabetes mellitus with diabetic chronic kidney disease; Z99.81 Dependence on supplemental oxygen; E83.39 Other disorders of phosphorus metabolism; E66.01 Morbid (severe) obesity due to excess calories; K76.0 Fatty (change of) liver, not elsewhere classified; J44.9 Chronic obstructive pulmonary disease, unspecified; D63.8 Anemia in other chronic diseases classified elsewhere; F41.9 Anxiety disorder, unspecified; M54.9 Dorsalgia, unspecified; G89.29 Other chronic pain; K21.9 Gastro-esophageal reflux disease without esophagitis; E87.1 Hypo-osmolality and hyponatremia; I08.0 Rheumatic disorders of both mitral and aortic valves; M48.061 Spinal stenosis, lumbar region without neurogenic claudication; G47.33 Obstructive sleep apnea (adult) (pediatric); Z90.79 Acquired absence of other genital organ(s); Z90.49 Acquired absence of other specified parts of digestive tract; Z87.891 Personal history of nicotine dependence; Z79.4 Long term (current) use of insulin; Z79.890 Hormone replacement therapy; Z79.82 Long term (current) use of aspirin; Z79.899 Other long term (current) drug therapy; Z88.2 Allergy status to sulfonamides; Z88.5 Allergy status to narcotic agent; Z88.8 Allergy status to other drugs, medicaments and biological substances; Z11.52 Encounter for screening for COVID-19; Z99.2 Dependence on renal dialysis; S20.229A Contusion of unspecified back wall of thorax, initial encounter; W01.0XXA Fall on same level from slipping, tripping and stumbling without subsequent striking against object, initial encounter; Y92.009 Unspecified place in unspecified non-institutional (private) residence as the place of occurrence of the external cause

== ENCOUNTER 2023-09-11 15:51 | Emergency (ER) | payer OTHER ==
[~2023-09-11] VITALS: Ht 170.2 cm; Wt 90.9 kg
[~2023-09-11 15:51] MED LIST changes: +DOXY100T2 PO; +NYST10006 TOP
[2023-09-11 16:04] VITALS: TEMP 98.3
[2023-09-11] MEDS: LORazepam 2 MG/ML 1ML VIAL IV STA (16:56)
[2023-09-11 17:00] LABS: VENOUS BASE EXCESS 5.4 (-2.0-2.0); VENOUS HCO3 31.3 MMOL/L (23.0-27.0); VENOUS O2 SATURATION 46.3 % (60.0-80.0); VENOUS PARTIAL PRESSURE CO2 52.3 mmHg (38.0-50.0); VENOUS PARTIAL PRESSURE O2 27.2 mmHg (30.0-50.0); VENOUS PH 7.395 UNITS (7.330-7.430); VENOUS STANDARD HCO3 28.3 MMOL/L; VENOUS TOTAL CO2 32.9 MMOL/L (24.0-28.0)
[2023-09-11 17:10] LABS: BASO # 0.1 10^3/uL (0.0-0.2); EOS # 0.1 10^3/uL (0.0-0.5); EOS % 1.2 % (0.0-3.0); HEMATOCRIT 30.1 % (36.0-47.0); HEMOGLOBIN 9.5 g/dl (12.0-15.5); LYMPH # 0.6 10^3/uL (1.5-5.0); LYMPH % 7.5 % (24.0-44.0); MEAN CORPUSCULAR HEMOGLOBIN 29.3 pg (27.0-33.0); MEAN CORPUSCULAR HGB CONC 31.6 g/dl (32.0-36.5); MEAN CORPUSCULAR VOLUME 92.9 fl (80.0-96.0); MONO # 0.7 10^3/uL (0.0-0.8); MONO % 9.6 % (2.0-8.0); NEUTROPHILS # 5.8 10^3/uL (1.5-8.5); PLATELET COUNT, AUTOMATED 136 10^3/uL (150-450); RED BLOOD COUNT 3.24 10^6/uL (4.00-5.40); WHITE BLOOD COUNT 7.3 10^3/uL (4.0-10.0)
[2023-09-11 17:29] LABS: BILIRUBIN,DIRECT 0.3 MG/DL (<0.4); BILIRUBIN,TOTAL 0.8 MG/DL (0.3-1.2); CK-MB VALUE MASS 2.4 NG/ML (<3.6); CREATININE FOR GFR 3.63 MG/DL (0.55-1.30); GLOMERULAR FILTRATION RATE 13.5 (>45); MB/CK RELATIVE INDEX 3.11 (< OR =4); POTASSIUM SERUM 4.1 MMOL/L (3.5-5.1); TOTAL PROTEIN 7.3 G/DL (5.7-8.2)
[2023-09-11 17:31] LABS: THYROID STIMULATING HORMONE 49.129 uIU/ML (0.55-4.78)
[2023-09-11 18:29] LABS: CK-MB VALUE MASS 2.6 NG/ML (<3.6)
[2023-09-11 18:31] LABS: MB/CK RELATIVE INDEX 4.33 (< OR =4)
[2023-09-11 20:29] VITALS: BP 143/69; O2SAT 95
[2023-09-11 21:07] LABS: FREE T4 0.95 NG/DL (0.89-1.76)
== END 2023-09-11 22:17 | disposition home or self-care (01) ==
LOC: M ED 15:51
DX: R07.9 Chest pain, unspecified (principal); E11.9 Type 2 diabetes mellitus without complications; J44.9 Chronic obstructive pulmonary disease, unspecified; I12.0 Hypertensive chronic kidney disease with stage 5 chronic kidney disease or end stage renal disease; Z99.2 Dependence on renal dialysis; Z87.891 Personal history of nicotine dependence; Z79.4 Long term (current) use of insulin; Z79.899 Other long term (current) drug therapy; Z79.82 Long term (current) use of aspirin; Z88.2 Allergy status to sulfonamides; Z88.6 Allergy status to analgesic agent; Z88.8 Allergy status to other drugs, medicaments and biological substances
CPT/HCPCS: 71045; 71250; 80048; 80076; 82550; 82553; 82803; 83690; 84439; 84443; 85025; 87486; 87581; 87633; 87798; 93005; 93041; 94760; 96374; 99285; J2060

== ENCOUNTER 2023-09-13 10:56 | Emergency (ER) | payer OTHER ==
[~2023-09-13] VITALS: Ht 172.7 cm; Wt 111.8 kg
[2023-09-13 12:48] LABS: BASO # 0.1 10^3/uL (0.0-0.2); BASO % 0.9 % (0.0-1.0); EOS # 0.1 10^3/uL (0.0-0.5); EOS % 0.9 % (0.0-3.0); HEMATOCRIT 33.5 % (36.0-47.0); HEMOGLOBIN 10.6 g/dl (12.0-15.5); LYMPH # 0.7 10^3/uL (1.5-5.0); LYMPH % 10.8 % (24.0-44.0); MEAN CORPUSCULAR HEMOGLOBIN 29.3 pg (27.0-33.0); MEAN CORPUSCULAR HGB CONC 31.6 g/dl (32.0-36.5); MEAN CORPUSCULAR VOLUME 92.5 fl (80.0-96.0); MONO # 0.6 10^3/uL (0.0-0.8); MONO % 9.5 % (2.0-8.0); NEUTROPHILS # 5.1 10^3/uL (1.5-8.5); NEUTROPHILS % 76.5 % (36.0-66.0); PLATELET COUNT, AUTOMATED 159 10^3/uL (150-450); RED BLOOD COUNT 3.62 10^6/uL (4.00-5.40); WHITE BLOOD COUNT 6.6 10^3/uL (4.0-10.0)
[2023-09-13 13:22] LABS: ALBUMIN 3.2 G/DL (3.2-5.2); BILIRUBIN,DIRECT 0.4 MG/DL (<0.4); CALCIUM LEVEL 8.7 MG/DL (8.3-10.6); CK-MB VALUE MASS 2.6 NG/ML (<3.6); CREATININE FOR GFR 3.11 MG/DL (0.55-1.30); GLOMERULAR FILTRATION RATE 16.1 (>45); POTASSIUM SERUM 4.5 MMOL/L (3.5-5.1); TOTAL PROTEIN 7.6 G/DL (5.7-8.2)
[2023-09-13 13:25] LABS: MB/CK RELATIVE INDEX 3.61 (< OR =4)
[2023-09-13 13:44] LABS: CK-MB VALUE MASS 2.3 NG/ML (<3.6)
[2023-09-13 13:45] LABS: MB/CK RELATIVE INDEX 3.59 (< OR =4)
[2023-09-13] MEDS ORDERED: HOME MED LIST COMPLETE! XX SCH (14:05)
[2023-09-13 16:00] VITALS: BP 162/70; TEMP 98; O2SAT 94
== END 2023-09-13 16:05 | disposition home or self-care (01) ==
LOC: M ED 10:56 → EDBD 10:56 → M ED 16:05
DX: R07.9 Chest pain, unspecified (principal); R06.00 Dyspnea, unspecified; I50.9 Heart failure, unspecified; E11.9 Type 2 diabetes mellitus without complications; I10 Essential (primary) hypertension; N18.6 End stage renal disease; F41.9 Anxiety disorder, unspecified; F32.A Depression, unspecified; Z87.891 Personal history of nicotine dependence; Z79.82 Long term (current) use of aspirin; Z79.4 Long term (current) use of insulin; Z79.899 Other long term (current) drug therapy; Z88.2 Allergy status to sulfonamides; Z88.5 Allergy status to narcotic agent; Z88.6 Allergy status to analgesic agent; Z88.8 Allergy status to other drugs, medicaments and biological substances

== ENCOUNTER 2023-09-27 11:17 | Emergency (ER) | payer OTHER ==
[~2023-09-27] VITALS: Ht 170.2 cm; Wt 104.5 kg
[2023-09-27] MEDS: traMADol 50 MG TAB PO ONE (14:58)
[2023-09-27 15:13] LABS: BASO # 0.1 10^3/uL (0.0-0.2); BASO % 1.5 % (0.0-1.0); EOS # 0.1 10^3/uL (0.0-0.5); EOS % 1.5 % (0.0-3.0); HEMATOCRIT 32.9 % (36.0-47.0); HEMOGLOBIN 10.4 g/dl (12.0-15.5); LYMPH # 0.6 10^3/uL (1.5-5.0); LYMPH % 9.4 % (24.0-44.0); MEAN CORPUSCULAR HEMOGLOBIN 30.5 pg (27.0-33.0); MEAN CORPUSCULAR HGB CONC 31.6 g/dl (32.0-36.5); MEAN CORPUSCULAR VOLUME 96.5 fl (80.0-96.0); MONO # 0.8 10^3/uL (0.0-0.8); MONO % 12.5 % (2.0-8.0); NEUTROPHILS # 4.5 10^3/uL (1.5-8.5); NEUTROPHILS % 74.6 % (36.0-66.0); PLATELET COUNT, AUTOMATED 125 10^3/uL (150-450); RED BLOOD COUNT 3.41 10^6/uL (4.00-5.40); WHITE BLOOD COUNT 6.1 10^3/uL (4.0-10.0)
[2023-09-27 15:26] LABS: INR 1.13; PARTIAL THROMBOPLASTIN TIME 34.6 SECONDS (24.8-34.2); PROTHROMBIN TIME 14.2 SECONDS (12.5-14.5)
[2023-09-27] MEDS: ALBUTEROL SULFATE 2.5MG/0.5ML INH NEB SOLN NEB ONE (16:09)
[2023-09-27 16:11] LABS: ALBUMIN 2.9 G/DL (3.2-5.2); BILIRUBIN,DIRECT 0.2 MG/DL (<0.4); BILIRUBIN,TOTAL 0.4 MG/DL (0.3-1.2); CALCIUM LEVEL 7.8 MG/DL (8.3-10.6); CK-MB VALUE MASS 2.6 NG/ML (<3.6); CREATININE FOR GFR 8.3 MG/DL (0.55-1.30); FREE T4 0.94 NG/DL (0.89-1.76); GLOMERULAR FILTRATION RATE 5.2 (>45); MB/CK RELATIVE INDEX 3.56 (< OR =4); POTASSIUM SERUM 5.5 MMOL/L (3.5-5.1); THYROID STIMULATING HORMONE 28.245 uIU/ML (0.55-4.78); TOTAL PROTEIN 6.9 G/DL (5.7-8.2)
[2023-09-27 20:54] VITALS: BP 145/73; TEMP 96.7; O2SAT 98
[2023-09-27] MEDS: PATIROMER SORBITEX CALCIUM 8.4 GM POWDER PACKET (VELTASSA) PO ONE (21:23)
== END 2023-09-27 21:31 | disposition home or self-care (01) ==
LOC: M ED 11:17 → EDBD 11:17 → M ED 21:31
DX: R52 Pain, unspecified (principal); R26.89 Other abnormalities of gait and mobility; N18.6 End stage renal disease; M71.22 Synovial cyst of popliteal space [Baker], left knee; Z99.2 Dependence on renal dialysis; I50.9 Heart failure, unspecified; E11.9 Type 2 diabetes mellitus without complications; I10 Essential (primary) hypertension; E78.5 Hyperlipidemia, unspecified; J44.9 Chronic obstructive pulmonary disease, unspecified; K21.9 Gastro-esophageal reflux disease without esophagitis; K76.0 Fatty (change of) liver, not elsewhere classified; Z98.61 Coronary angioplasty status; Z79.4 Long term (current) use of insulin; Z79.82 Long term (current) use of aspirin; Z79.899 Other long term (current) drug therapy; Z88.2 Allergy status to sulfonamides; Z88.5 Allergy status to narcotic agent; Z88.6 Allergy status to analgesic agent; Z88.8 Allergy status to other drugs, medicaments and biological substances

== ENCOUNTER 2023-09-30 06:58 | Emergency (ER) | payer OTHER ==
[~2023-09-30] VITALS: Ht 170.2 cm; Wt 128.0 kg
[~2023-09-30 06:58] MED LIST changes: +DOXY-440 PO; -DOXY-444 PO; +FLUO-290 PO; -FLUO10CA18 PO
[2023-09-30 07:15] VITALS: TEMP 96.5
[2023-09-30] MEDS: ONDANSETRON 4MG 2ML VIAL IV ONE ×2 (09:35→23:07)
[2023-09-30 09:50] LABS: BASO # 0.1 10^3/uL (0.0-0.2); BASO % 1.5 % (0.0-1.0); EOS # 0.1 10^3/uL (0.0-0.5); EOS % 0.6 % (0.0-3.0); HEMATOCRIT 36.6 % (36.0-47.0); HEMOGLOBIN 12.4 g/dl (12.0-15.5); LYMPH # 0.8 10^3/uL (1.5-5.0); LYMPH % 9.8 % (24.0-44.0); MEAN CORPUSCULAR HEMOGLOBIN 33.3 pg (27.0-33.0); MEAN CORPUSCULAR HGB CONC 33.9 g/dl (32.0-36.5); MEAN CORPUSCULAR VOLUME 98.4 fl (80.0-96.0); MONO # 0.8 10^3/uL (0.0-0.8); MONO % 9.6 % (2.0-8.0); NEUTROPHILS # 6.4 10^3/uL (1.5-8.5); PLATELET COUNT, AUTOMATED 163 10^3/uL (150-450); RED BLOOD COUNT 3.72 10^6/uL (4.00-5.40); WHITE BLOOD COUNT 8.1 10^3/uL (4.0-10.0)
[2023-09-30 10:03] LABS: INR 1.36; PARTIAL THROMBOPLASTIN TIME 37.9 SECONDS (24.8-34.2); PROTHROMBIN TIME 16.4 SECONDS (12.5-14.5)
[2023-09-30] MEDS ORDERED: HOME MED LIST COMPLETE! XX SCH (10:10)
[2023-09-30] MEDS ORDERED: HEPARIN 1,000UNITS/ML 10ML VIAL (FOR RADIOLOGY & DIALYSIS ONLY) IV PRN (10:15)
[2023-09-30] MEDS ORDERED: LIDOCAINE 1% SDV 5ML VIAL SC PRN (10:15)
[2023-09-30] MEDS ORDERED: SODIUM CHLORIDE 0.9% 1000ML IV PRN (10:15)
[2023-09-30] MEDS ORDERED: HEPARIN 1,000UNITS/ML 10ML VIAL (FOR RADIOLOGY & DIALYSIS ONLY) XX SCH (10:15)
[2023-09-30 10:33] LABS: ALBUMIN 3.1 G/DL (3.2-5.2); BILIRUBIN,DIRECT 0.4 MG/DL (<0.4); BILIRUBIN,TOTAL 0.6 MG/DL (0.3-1.2); CALCIUM LEVEL 7.2 MG/DL (8.3-10.6); CK-MB VALUE MASS 5.3 NG/ML (<3.6); CREATININE FOR GFR 10.57 MG/DL (0.55-1.30); FREE T4 1.03 NG/DL (0.89-1.76); GLOMERULAR FILTRATION RATE 3.9 (>45); MB/CK RELATIVE INDEX 6.02 (< OR =4); POTASSIUM SERUM 6.9 MMOL/L (3.5-5.1); THYROID STIMULATING HORMONE 32.758 uIU/ML (0.55-4.78); TOTAL PROTEIN 7.2 G/DL (5.7-8.2)
[2023-09-30] MEDS: PATIROMER SORBITEX CALCIUM 8.4 GM POWDER PACKET (VELTASSA) PO ONE ×2 (11:01→18:41)
[2023-09-30] MEDS: SODIUM BICARBONATE 8.4% INJ 50ML SYRINGE IV ONE (11:02)
[2023-09-30] MEDS: CALCIUM GLUCONATE 1,000MG/10ML VIAL (100MG/ML) IV ONE (11:02)
[2023-09-30] MEDS: DEXTROSE 50% 50ML SYRINGE IV ONE (11:02)
[2023-09-30] MEDS: HumuLIN R (REGULAR) INSULIN (NovoLIN R) **100U/ML** PER UNIT IV ONE (11:02)
[2023-09-30 11:09] LABS: CK-MB VALUE MASS 5.1 NG/ML (<3.6)
[2023-09-30 11:10] LABS: MB/CK RELATIVE INDEX 5.54 (< OR =4)
[2023-09-30] MEDS: ALBUTEROL SULFATE 2.5MG/0.5ML INH NEB SOLN INH ONE (11:19)
[2023-09-30] MEDS ORDERED: ISOVUE-370 76% 100ML VIAL As Ordered ONE (12:59)
[2023-09-30] MEDS: HYDROMORPHONE HCL 0.5 MG/ 0.5 ML SYRINGE IV PRN (13:38)
[2023-09-30 13:47] LABS: CALCIUM LEVEL 6.9 MG/DL (8.3-10.6); CREATININE FOR GFR 10.53 MG/DL (0.55-1.30); POTASSIUM SERUM 5.9 MMOL/L (3.5-5.1)
[2023-09-30] MEDS: HumuLIN R (REGULAR) INSULIN (NovoLIN R) **100U/ML** PER UNIT IV STA ×2 (14:13→19:06)
[2023-09-30] MEDS: DEXTROSE 50% 50ML SYRINGE IV STA ×2 (14:13→18:40)
[2023-09-30] MEDS: FUROSEMIDE 100MG/10ML VIAL IV ONE ×2 (14:13→18:10)
[2023-09-30 17:52] LABS: ALBUMIN 2.7 G/DL (3.2-5.2); CALCIUM LEVEL 6.7 MG/DL (8.3-10.6); CREATININE FOR GFR 10.5 MG/DL (0.55-1.30); PHOSPHORUS LEVEL 11.4 MG/DL (2.4-5.1); POTASSIUM SERUM 6.1 MMOL/L (3.5-5.1)
[2023-09-30] MEDS ORDERED: HEPARIN SOD (PORCINE) 5000UNITS/ML 1ML VIAL/SYRINGE IV PRN (18:20)
[2023-09-30] MEDS: ALBUTEROL SULFATE 2.5MG/0.5ML INH NEB SOLN NEB ONE (18:28)
[2023-09-30] MEDS: CALCIUM GLUCONATE 1,000 MG in D5W MINI-BAG PLUS 100 ML IV SCH (18:29)
[2023-09-30] MEDS: HEPARIN SOD (PORCINE) 5000UNITS/ML 1ML VIAL/SYRINGE IV ONE (23:50)
[2023-09-30] MEDS: HEPARIN DRIP 25,000 UNITS in IV 1 EA IV SCH (23:54)
[2023-10-01] MEDS ORDERED: SENOKOT S TAB PO PRN (05:10)
[2023-10-01] MEDS: BISACODYL 10MG SUPP PR ONE (05:33)
[2023-10-01] MEDS: METOCLOPRAMIDE INJ 10MG/2ML VIAL IV ONE (05:34)
[2023-10-01] MEDS: HYDROMORPHONE HCL 0.5 MG/ 0.5 ML SYRINGE IV PRN (05:36)
[2023-10-01] MEDS ORDERED: LEVOTHYROXINE 50MCG TABLET (0.05MG) PO SCH (06:00)
[2023-10-01] MEDS ORDERED: LEVOTHYROXINE 125MCG TABLET (0.125MG) PO SCH (06:00)
[2023-10-01 06:26] VITALS: O2SAT 98
[2023-10-01] MEDS ORDERED: MOM 30ML SUSPENSION UDC PO PRN (07:15)
[2023-10-01] MEDS ORDERED: IPRATROPIUM 0.5MG/ALBUTEROL 2.5MG INH SOL UD 3ML (DUONEB) INH PRN (07:20)
[2023-10-01] MEDS ORDERED: GLUCAGON INJ 1MG VIAL SC PRN (07:25)
[2023-10-01] MEDS ORDERED: DEXTROSE 50% 50ML SYRINGE IV PRN (07:25)
[2023-10-01] MEDS ORDERED: GLUCOSE 4 GM CHEW PO PRN (07:25)
[2023-10-01] MEDS ORDERED: INSULIN LISPRO (NovoLOG) PER UNIT SC SCH ×2 (07:30→21:00)
[2023-10-01] MEDS ORDERED: (RENVELA) SEVELAMER **CARBONate** 800 MG TAB PO SCH (08:00)
[2023-10-01] MEDS ORDERED: BUDESONIDE 0.5 MG/2 ML INHALATION SUSPENSION INH SCH (08:00)
[2023-10-01] MEDS ORDERED: ADVAIR HFA 115/21MCG INHALER INH SCH (08:00)
[2023-10-01 08:44] VITALS: BP 151/65
[2023-10-01 08:48] LABS: HEMATOCRIT 33.9 % (36.0-47.0); HEMOGLOBIN 10.7 g/dl (12.0-15.5); MEAN CORPUSCULAR HEMOGLOBIN 31.2 pg (27.0-33.0); MEAN CORPUSCULAR HGB CONC 31.6 g/dl (32.0-36.5); MEAN CORPUSCULAR VOLUME 98.8 fl (80.0-96.0); PLATELET COUNT, AUTOMATED 160 10^3/uL (150-450); RED BLOOD COUNT 3.43 10^6/uL (4.00-5.40); WHITE BLOOD COUNT 9.3 10^3/uL (4.0-10.0)
[2023-10-01] MEDS ORDERED: NYSTATIN 100,000 UNITS/GM TOPICAL PWD 15GM TOP SCH (09:00)
[2023-10-01] MEDS ORDERED: **hydrALAZINE HCL** 25 MG TAB PO SCH (09:00)
[2023-10-01] MEDS ORDERED: TORSEMIDE 20 MG TAB PO SCH (09:00)
[2023-10-01] MEDS ORDERED: ASPIRIN 81MG ENTERIC TABLET PO SCH (09:00)
[2023-10-01] MEDS ORDERED: METOPROLOL SUCC (TopROL XL) 50MG **XL** TAB PO SCH (09:00)
[2023-10-01] MEDS ORDERED: CETIRIZINE (ZyrTEC) 10 MG TAB PO SCH (09:00)
[2023-10-01] MEDS ORDERED: CINACALCET 30 MG TAB (SENSIPAR) PO SCH (09:00)
[2023-10-01] MEDS ORDERED: DOCUSATE SODIUM 100MG CAPSULE PO SCH (09:00)
[2023-10-01 09:47] LABS: ALBUMIN 2.8 G/DL (3.2-5.2); CALCIUM LEVEL 6.8 MG/DL (8.3-10.6); CREATININE FOR GFR 10.81 MG/DL (0.55-1.30); GLOMERULAR FILTRATION RATE 3.8 (>45); PHOSPHORUS LEVEL 11.1 MG/DL (2.4-5.1); POTASSIUM SERUM 6.7 MMOL/L (3.5-5.1)
[2023-10-01] MEDS ORDERED: traMADol ER 100MG TABLET (ULTRAM ER) PO SCH (21:00)
[2023-10-13] MEDS ORDERED: BISA10SU27 PR (20:35)
[2023-10-13] MEDS ORDERED: TIZA10TA PO (20:35)
[2023-10-13] MEDS ORDERED: BISA1TAB PO (20:35)
[2023-10-13] MEDS ORDERED: LACT20EL PO (20:35)
[2023-10-13] MEDS ORDERED: ACET32TAB PO (20:35)
[2023-10-13] MEDS ORDERED: ENEMENE PR (20:35)
[2023-10-13] MEDS ORDERED: ALBU2.5V10 INH (20:35)
[2023-10-13] MEDS ORDERED: MELA5TAB58 PO (20:35)
[2023-10-13] MEDS ORDERED: ONDA-83 PO (20:35)
== END 2023-10-01 09:03 | disposition short-term general hospital (02) ==
LOC: M ED 06:58
DX: R06.02 Shortness of breath (principal); I70.201 Unspecified atherosclerosis of native arteries of extremities, right leg; E87.5 Hyperkalemia; Z91.199 Patient's noncompliance with other medical treatment and regimen due to unspecified reason; J90 Pleural effusion, not elsewhere classified; R18.8 Other ascites; R16.1 Splenomegaly, not elsewhere classified; I11.0 Hypertensive heart disease with heart failure; E11.9 Type 2 diabetes mellitus without complications; J44.9 Chronic obstructive pulmonary disease, unspecified; F41.9 Anxiety disorder, unspecified; N18.6 End stage renal disease; Z99.2 Dependence on renal dialysis; Z98.61 Coronary angioplasty status; Z99.81 Dependence on supplemental oxygen; Z79.4 Long term (current) use of insulin; Z79.82 Long term (current) use of aspirin; Z79.899 Other long term (current) drug therapy; Z88.2 Allergy status to sulfonamides; Z88.5 Allergy status to narcotic agent; Z88.6 Allergy status to analgesic agent; Z88.8 Allergy status to other drugs, medicaments and biological substances
CPT/HCPCS: 36415; 71045; 75635; 80048; 80069; 80076; 82550; 82553; 83605; 83690; 83880; 84439; 84443; 84484; 85025; 85027; 85610; 85730; 87040; 93005; 93041; 94640; 94760; 96365; 96366; 96367; 96375; 96376; 99285; J0612; J1170; J1815; J1940; J2405; J2765; Q9967

== ENCOUNTER 2023-11-10 23:54 | Emergency (ER) | payer MEDICAID, OTHER ==
[~2023-11-10] VITALS: Ht 172.7 cm; Wt 100.0 kg
[~2023-11-10 23:54] MED LIST changes: +ACET32TAB PO; +BISA10SU27 PR; +BISA1TAB PO; +ENEMENE PR; +LACT20EL PO; +MELA5TAB58 PO; +ONDA-83 PO; +TIZA10TA PO
[2023-11-11 00:13] VITALS: TEMP 99.2
[2023-11-11 01:01] LABS: ALBUMIN 2.9 G/DL (3.2-5.2); BILIRUBIN,DIRECT 0.3 MG/DL (<0.4); BILIRUBIN,TOTAL 0.6 MG/DL (0.3-1.2); CREATININE FOR GFR 6.91 MG/DL (0.55-1.30); GLOMERULAR FILTRATION RATE 6.4 (>45); POTASSIUM SERUM 4.8 MMOL/L (3.5-5.1); TOTAL PROTEIN 7.1 G/DL (5.7-8.2)
[2023-11-11 01:08] LABS: BASO % 0.5 % (0.0-1.0); EOS # 0.1 10^3/uL (0.0-0.5); EOS % 0.9 % (0.0-3.0); HEMATOCRIT 23.6 % (36.0-47.0); HEMOGLOBIN 8.1 g/dl (12.0-15.5); LYMPH # 0.5 10^3/uL (1.5-5.0); LYMPH % 7.1 % (24.0-44.0); MEAN CORPUSCULAR HEMOGLOBIN 32.1 pg (27.0-33.0); MEAN CORPUSCULAR HGB CONC 34.3 g/dl (32.0-36.5); MEAN CORPUSCULAR VOLUME 93.7 fl (80.0-96.0); MONO # 0.9 10^3/uL (0.0-0.8); MONO % 12.1 % (2.0-8.0); NEUTROPHILS # 5.9 10^3/uL (1.5-8.5); RED BLOOD COUNT 2.52 10^6/uL (4.00-5.40); WHITE BLOOD COUNT 7.5 10^3/uL (4.0-10.0)
[2023-11-11 01:28] LABS: PLATELET COUNT, AUTOMATED 98 10^3/uL (150-450)
[2023-11-11 01:45] VITALS: O2SAT 96
[2023-11-11] MEDS ORDERED: LevoFLOXacin IV 750 MG in IV 1 EA IV ONE (01:45)
[2023-11-11] MEDS ORDERED: PIPERACILLIN/TAZOBACTAM SOD 4.5 GM in D5W MINI-BAG PLUS 50 ML IV ONE (01:45)
[2023-11-11 01:46] VITALS: BP 124/60
[2023-11-11] MEDS ORDERED: LEVO1TAB39 PO (02:00)
[2023-11-11] MEDS: LevoFLOXacin 750 MG TABLET PO ONE (02:34)
[2023-11-11] MEDS ORDERED: HYDR-3363 PO (02:34)
[2023-11-11] MEDS ORDERED: BENZ200C70 PO (02:34)
[2023-11-11] MEDS ORDERED: PRED20TA PO (02:34)
[2023-11-11 03:20] LABS: PROCALCITONIN 0.76 ng/ml
[2023-11-11] MEDS ORDERED: INSU100I24 SQ (10:15)
[2023-11-11] MEDS ORDERED: BUDE0.5S6 INH (10:15)
[2023-11-11] MEDS ORDERED: FURO20TA2 PO (10:15)
[2023-11-11] MEDS ORDERED: VENTAER INH (10:15)
== END 2023-11-11 03:10 | disposition home or self-care (01) ==
LOC: M ED 23:54
DX: J18.9 Pneumonia, unspecified organism (principal); J44.1 Chronic obstructive pulmonary disease with (acute) exacerbation; E11.9 Type 2 diabetes mellitus without complications; I10 Essential (primary) hypertension; E78.5 Hyperlipidemia, unspecified; Z98.61 Coronary angioplasty status; Z79.82 Long term (current) use of aspirin; Z79.899 Other long term (current) drug therapy; Z88.2 Allergy status to sulfonamides; Z88.5 Allergy status to narcotic agent; Z88.6 Allergy status to analgesic agent; Z88.8 Allergy status to other drugs, medicaments and biological substances

== ENCOUNTER 2023-11-11 08:41 | Inpatient (IN) | payer OTHER ==
[~2023-11-11] VITALS: Ht 172.7 cm; Wt 100.6 kg
[~2023-11-11 08:41] MED LIST changes: +BENZ200C70 PO
[2023-11-11] MEDS: IPRATROPIUM 0.5MG/ALBUTEROL 2.5MG INH SOL UD 3ML (DUONEB) NEB SCH ×2 (09:29→17:46)
[2023-11-11 09:52] LABS: ABG BASE EXCESS 4.9 (-2.0-2.0); ABG HCO3 27.5 MMOL/L (22.0-26.0); ABG O2 SATURATION 97.4 % (95.0-99.0); ABG PARTIAL PRESSURE CO2 32.6 mmHg (35.0-45.0); ABG PARTIAL PRESSURE O2 91.9 mmHg (75.0-100.0); ABG STANDARD HCO3 28.9 MMOL/L. (22.0-26.0); ABG TOTAL CO2 28.5 MMOL/L (23.0-31.0); ABG pH (ARTERIAL) 7.544 UNITS (7.350-7.450)
[2023-11-11 09:54] LABS: VENOUS BASE EXCESS 6.7 (-2.0-2.0); VENOUS HCO3 29.1 MMOL/L (23.0-27.0); VENOUS O2 SATURATION 98.6 % (60.0-80.0); VENOUS PARTIAL PRESSURE CO2 33.2 mmHg (38.0-50.0); VENOUS PARTIAL PRESSURE O2 149.2 mmHg (30.0-50.0); VENOUS PH 7.561 UNITS (7.330-7.430); VENOUS STANDARD HCO3 30.6 MMOL/L; VENOUS TOTAL CO2 30.1 MMOL/L (24.0-28.0)
[2023-11-11] MEDS: methylPREDNISolone 125MG 2ML VIAL IV ONE (09:55)
[2023-11-11 10:00] LABS: BASO % 0.5 % (0.0-1.0); EOS # 0.1 10^3/uL (0.0-0.5); HEMATOCRIT 23.5 % (36.0-47.0); LYMPH # 0.3 10^3/uL (1.5-5.0); MEAN CORPUSCULAR HEMOGLOBIN 32.3 pg (27.0-33.0); MEAN CORPUSCULAR VOLUME 94.8 fl (80.0-96.0); MONO # 0.6 10^3/uL (0.0-0.8); MONO % 9.1 % (2.0-8.0); NEUTROPHILS # 5.3 10^3/uL (1.5-8.5); NEUTROPHILS % 83.9 % (36.0-66.0); RED BLOOD COUNT 2.48 10^6/uL (4.00-5.40); WHITE BLOOD COUNT 6.3 10^3/uL (4.0-10.0)
[2023-11-11] MEDS: ALPRAZolam 0.25 MG TAB PO ONE (10:04)
[2023-11-11 10:07] LABS: PLATELET COUNT, AUTOMATED 98 10^3/uL (150-450)
[2023-11-11] MEDS ORDERED: INSU100I24 SQ (10:15)
[2023-11-11] MEDS ORDERED: VENTAER INH (10:15)
[2023-11-11] MEDS ORDERED: FURO20TA2 PO (10:15)
[2023-11-11] MEDS ORDERED: BUDE0.5S6 INH (10:15)
[2023-11-11] MEDS ORDERED: HOME MED LIST COMPLETE! XX SCH (10:20)
[2023-11-11 10:32] LABS: ALBUMIN 2.8 G/DL (3.2-5.2); BILIRUBIN,DIRECT 0.2 MG/DL (<0.4); BILIRUBIN,TOTAL 0.6 MG/DL (0.3-1.2); CALCIUM LEVEL 9.6 MG/DL (8.3-10.6); CK-MB VALUE MASS 1.3 NG/ML (<3.6); CREATININE FOR GFR 4.76 MG/DL (0.55-1.30); GLOMERULAR FILTRATION RATE 9.9 (>45); POTASSIUM SERUM 4.1 MMOL/L (3.5-5.1); TOTAL PROTEIN 7.2 G/DL (5.7-8.2)
[2023-11-11 10:34] LABS: MB/CK RELATIVE INDEX 3.42 (< OR =4)
[2023-11-11] MEDS ORDERED: ALPRAZolam 0.5 MG TAB PO PRN (14:05)
[2023-11-11] MEDS: DOXYCYCLINE HYCLATE 100MG TABLET PO SCH (14:31)
[2023-11-11] MEDS: traMADol 50 MG TAB PO ONE (14:32)
[2023-11-11] MEDS: KETOROLAC 30 MG/ML 1ML VIAL IV ONE (14:32)
[2023-11-11 14:38] LABS: PERCENT SATURATION 22.2 % (13.2-45.0)
[2023-11-11 14:41] LABS: FERRITIN 744.6 NG/ML (7.3-270.7); FOLATE 8.34 NG/ML (>5.4)
[2023-11-11 15:14] VITALS: BP 133/74; TEMP 97.5; O2SAT 97
[2023-11-11] MEDS: **hydrALAZINE HCL** 25 MG TAB PO SCH (16:24)
[2023-11-11 17:29] VITALS: TEMP 101.4
[2023-11-11] MEDS ORDERED: GLUCOSE 4 GM CHEW PO PRN (18:20)
[2023-11-11] MEDS ORDERED: DEXTROSE 50% 50ML SYRINGE IV PRN (18:20)
[2023-11-11] MEDS ORDERED: GLUCAGON INJ 1MG VIAL SC PRN (18:20)
[2023-11-11] MEDS: INSULIN LISPRO (NovoLOG) PER UNIT SC SCH ×2 (18:48→21:15)
[2023-11-11] MEDS: SYMBICORT 160/4.5MCG INHALER 6GM INH SCH (19:54)
[2023-11-11 20:00] VITALS: BP 138/71; TEMP 97.9; O2SAT 96
[2023-11-11] MEDS: FUROSEMIDE 100MG/10ML VIAL IV ONE (21:15)
[2023-11-11] MEDS: methylPREDNISolone 40MG 1ML VIAL IV SCH (21:15)
[2023-11-11] MEDS: ATORVASTATIN 10 MG TAB PO SCH (21:16)
[2023-11-11] MEDS: DOCUSATE SODIUM 100MG CAPSULE PO SCH (21:16)
[2023-11-11] MEDS: traMADol 50 MG TAB PO SCH (21:17)
[2023-11-12] MEDS: LEVOTHYROXINE 150MCG TABLET (0.15MG) PO SCH (05:58)
[2023-11-12] MEDS: LEVOTHYROXINE 25MCG TABLET (0.025MG) PO SCH (05:59)
[2023-11-12 06:00] VITALS: BP 143/73; TEMP 97.9; O2SAT 100
[2023-11-12 06:12] VITALS: BP 144/75; TEMP 97.7; O2SAT 91
[2023-11-12 07:10] LABS: HEMATOCRIT 24.9 % (36.0-47.0); MEAN CORPUSCULAR HEMOGLOBIN 30.2 pg (27.0-33.0); MEAN CORPUSCULAR HGB CONC 32.1 g/dl (32.0-36.5); PLATELET COUNT, AUTOMATED 105 10^3/uL (150-450); RED BLOOD COUNT 2.65 10^6/uL (4.00-5.40); WHITE BLOOD COUNT 8.7 10^3/uL (4.0-10.0)
[2023-11-12] MEDS: METOPROLOL SUCC (TopROL XL) 50MG **XL** TAB PO SCH (07:48)
[2023-11-12] MEDS: ASPIRIN 81MG ENTERIC TABLET PO SCH (07:49)
[2023-11-12] MEDS: VENLAFAXINE **XR** 75MG CAPSULE PO SCH (07:49)
[2023-11-12 08:02] LABS: ALBUMIN 2.7 G/DL (3.2-5.2); BILIRUBIN,TOTAL 0.3 MG/DL (0.3-1.2); CALCIUM LEVEL 10.6 MG/DL (8.3-10.6); CREATININE FOR GFR 6.2 MG/DL (0.55-1.30); GLOMERULAR FILTRATION RATE 7.3 (>45); POTASSIUM SERUM 4.8 MMOL/L (3.5-5.1); TOTAL PROTEIN 7.1 G/DL (5.7-8.2)
[2023-11-12] MEDS ORDERED: SODIUM CHLORIDE 0.9% 1000ML IV PRN (08:10)
[2023-11-12] MEDS ORDERED: HEPARIN 1,000UNITS/ML 10ML VIAL (FOR RADIOLOGY & DIALYSIS ONLY) IV PRN (08:10)
[2023-11-12] MEDS ORDERED: LIDOCAINE 1% SDV 5ML VIAL SC PRN (08:10)
[2023-11-12] MEDS: LEVEMIR (INSULIN DETEMIR) 1 UNITS/0.01ML SC SCH (08:54)
[2023-11-12] MEDS ORDERED: EMLA CREAM 5GM TUBE (LIDOCAINE/PRILOCAINE) TOP SCH (09:40)
[2023-11-12] MEDS: HEPARIN 1,000UNITS/ML 10ML VIAL (FOR RADIOLOGY & DIALYSIS ONLY) XX SCH (11:37)
[2023-11-12 14:00] VITALS: BP 130/77; TEMP 98.1; O2SAT 98
[2023-11-12 14:30] LABS: INR 1.19; PARTIAL THROMBOPLASTIN TIME 29.9 SECONDS (24.8-34.2); PROTHROMBIN TIME 14.8 SECONDS (12.5-14.5)
[2023-11-12] MEDS: ACETAMINOPHEN TAB 650MG DOSE (2X325MG) PO PRN (17:33)
[2023-11-12 20:00] VITALS: BP 128/61; TEMP 97.7; O2SAT 99
[2023-11-12] MEDS: ARTIFICIAL TEARS DROPS 15ML BTL (VISINE DRY RELIEF) OU PRN (20:43)
[2023-11-12] MEDS: VANICREAM MOISTURIZING SKIN CREAM 113GM TUBE TOP SCH (20:45)
[2023-11-13 05:00] VITALS: BP 130/61; TEMP 97.9; O2SAT 98
[2023-11-13] MEDS ORDERED: LIDOCAINE 1% SDV 5ML VIAL SC PRN (06:00)
[2023-11-13] MEDS ORDERED: LEVOTHYROXINE 50MCG TABLET (0.05MG) PO SCH (06:00)
[2023-11-13] MEDS ORDERED: SODIUM CHLORIDE 0.9% 1000ML IV PRN (06:00)
[2023-11-13] MEDS ORDERED: LEVOTHYROXINE 125MCG TABLET (0.125MG) PO SCH (06:00)
[2023-11-13] MEDS: LEVEMIR (INSULIN DETEMIR) 1 UNITS/0.01ML SC SCH ×2 (09:04→20:29)
[2023-11-13 09:11] LABS: HEMATOCRIT 25.3 % (36.0-47.0); HEMOGLOBIN 8.2 g/dl (12.0-15.5); MEAN CORPUSCULAR HEMOGLOBIN 31.5 pg (27.0-33.0); MEAN CORPUSCULAR HGB CONC 32.4 g/dl (32.0-36.5); MEAN CORPUSCULAR VOLUME 97.3 fl (80.0-96.0); PLATELET COUNT, AUTOMATED 153 10^3/uL (150-450); WHITE BLOOD COUNT 10.4 10^3/uL (4.0-10.0)
[2023-11-13 09:43] LABS: ALBUMIN 2.8 G/DL (3.2-5.2); BILIRUBIN,TOTAL 0.3 MG/DL (0.3-1.2); CALCIUM LEVEL 10.4 MG/DL (8.3-10.6); CREATININE FOR GFR 4.4 MG/DL (0.55-1.30); GLOMERULAR FILTRATION RATE 10.8 (>45); POTASSIUM SERUM 3.8 MMOL/L (3.5-5.1); TOTAL PROTEIN 6.8 G/DL (5.7-8.2)
[2023-11-13] MEDS: HEPARIN 1,000UNITS/ML 10ML VIAL (FOR RADIOLOGY & DIALYSIS ONLY) XX SCH (11:41)
[2023-11-13 14:00] VITALS: BP 130/57; TEMP 97.9; O2SAT 99
[2023-11-13] MEDS ORDERED: ONDANSETRON 4MG TAB PO SCH (16:40)
[2023-11-13] MEDS: ONDANSETRON 4MG TAB PO PRN (17:16)
[2023-11-13 20:00] VITALS: BP 131/56; TEMP 98.1; O2SAT 98
[2023-11-14 05:30] VITALS: BP 128/56; TEMP 98; O2SAT 95
[2023-11-14 06:44] LABS: HEMATOCRIT 26.9 % (36.0-47.0); HEMOGLOBIN 8.6 g/dl (12.0-15.5); MEAN CORPUSCULAR HEMOGLOBIN 31.4 pg (27.0-33.0); MEAN CORPUSCULAR VOLUME 98.2 fl (80.0-96.0); PLATELET COUNT, AUTOMATED 152 10^3/uL (150-450); RED BLOOD COUNT 2.74 10^6/uL (4.00-5.40); WHITE BLOOD COUNT 7.7 10^3/uL (4.0-10.0)
[2023-11-14 07:06] LABS: ALBUMIN 2.6 G/DL (3.2-5.2); BILIRUBIN,TOTAL 0.2 MG/DL (0.3-1.2); CALCIUM LEVEL 10.4 MG/DL (8.3-10.6); CREATININE FOR GFR 3.68 MG/DL (0.55-1.30); GLOMERULAR FILTRATION RATE 13.3 (>45); POTASSIUM SERUM 3.6 MMOL/L (3.5-5.1); TOTAL PROTEIN 6.4 G/DL (5.7-8.2)
[2023-11-14] MEDS: predniSONE 20 MG TAB PO SCH (08:52)
[2023-11-14 12:35] VITALS: BP 132/60; TEMP 98.8; O2SAT 92
[2023-11-14 20:00] VITALS: BP 114/45; TEMP 98.3; O2SAT 96
[2023-11-14] MEDS: SODIUM CHLORIDE NASAL 0.65% SPRAY BTL (OCEAN) PRN (21:42)
[2023-11-15 05:35] VITALS: BP 140/60; TEMP 98.1; O2SAT 100
[2023-11-15] MEDS ORDERED: SODIUM CHLORIDE 0.9% 1000ML IV PRN (06:00)
[2023-11-15] MEDS ORDERED: LIDOCAINE 1% SDV 5ML VIAL SC PRN (06:00)
[2023-11-15 06:49] LABS: HEMATOCRIT 30.2 % (36.0-47.0); HEMOGLOBIN 9.6 g/dl (12.0-15.5); MEAN CORPUSCULAR HEMOGLOBIN 30.9 pg (27.0-33.0); MEAN CORPUSCULAR HGB CONC 31.8 g/dl (32.0-36.5); MEAN CORPUSCULAR VOLUME 97.1 fl (80.0-96.0); PLATELET COUNT, AUTOMATED 172 10^3/uL (150-450); RED BLOOD COUNT 3.11 10^6/uL (4.00-5.40); WHITE BLOOD COUNT 9.3 10^3/uL (4.0-10.0)
[2023-11-15 07:20] LABS: BILIRUBIN,TOTAL 0.2 MG/DL (0.3-1.2); CALCIUM LEVEL 10.5 MG/DL (8.3-10.6); CREATININE FOR GFR 5.41 MG/DL (0.55-1.30); GLOMERULAR FILTRATION RATE 8.5 (>45); POTASSIUM SERUM 3.7 MMOL/L (3.5-5.1); TOTAL PROTEIN 6.9 G/DL (5.7-8.2)
[2023-11-15] MEDS ORDERED: PRED20TA PO (07:26)
[2023-11-15] MEDS: HEPARIN 1,000UNITS/ML 10ML VIAL (FOR RADIOLOGY & DIALYSIS ONLY) XX SCH (08:37)
[2023-11-15] MEDS: ALPRAZolam 0.25 MG TAB PO PRN (10:58)
[2023-11-15] MEDS ORDERED: TOUJ1.2I SC (11:12)
[2023-11-15] MEDS: (RENVELA) SEVELAMER **CARBONate** 800 MG TAB PO SCH (12:48)
[2023-11-15 14:00] VITALS: BP 110/46; TEMP 98.1; O2SAT 100
[2023-11-15] MEDS ORDERED: HEPARIN 1,000UNITS/ML 10ML VIAL (FOR RADIOLOGY & DIALYSIS ONLY) XX SCH (14:05)
[2023-11-15] MEDS ORDERED: LANTINJ4 SC (19:23)
[2023-11-15 20:24] VITALS: BP 142/80; TEMP 98.2; O2SAT 98
[2023-11-16 05:10] VITALS: BP 133/65; TEMP 97.7; O2SAT 100
[2023-11-16 06:07] LABS: HEMATOCRIT 30.4 % (36.0-47.0); HEMOGLOBIN 9.7 g/dl (12.0-15.5); MEAN CORPUSCULAR HEMOGLOBIN 31.2 pg (27.0-33.0); MEAN CORPUSCULAR HGB CONC 31.9 g/dl (32.0-36.5); MEAN CORPUSCULAR VOLUME 97.7 fl (80.0-96.0); PLATELET COUNT, AUTOMATED 167 10^3/uL (150-450); RED BLOOD COUNT 3.11 10^6/uL (4.00-5.40); WHITE BLOOD COUNT 8.7 10^3/uL (4.0-10.0)
[2023-11-16 06:37] LABS: ALBUMIN 2.9 G/DL (3.2-5.2); ALKALINE PHOSPHATASE 170 U/L (46-116); ALT/SGPT < 9 U/L (7.0-40); AST/SGOT < 8 U/L (<34); BILIRUBIN,TOTAL 0.2 MG/DL (0.3-1.2); BLOOD UREA NITROGEN 39 MG/DL (9-23); CALCIUM LEVEL 10.6 MG/DL (8.3-10.6); CARBON DIOXIDE LEVEL 30 MMOL/L (20-31); CHLORIDE LEVEL 97 MMOL/L (98-107); CREATININE FOR GFR 4.04 MG/DL (0.55-1.30); GLOMERULAR FILTRATION RATE 11.9 (>45); GLUCOSE, FASTING 140 MG/DL (74-106); POTASSIUM SERUM 3.4 MMOL/L (3.5-5.1); SODIUM LEVEL 136 MMOL/L (136-145); TOTAL PROTEIN 6.7 G/DL (5.7-8.2)
[2023-11-16 08:08] VITALS: BP 139/70
== END 2023-11-16 10:23 | disposition home health service (06) | DRG 194 ==
LOC: EDBD 08:41 → M ED 08:41 → M ED INP 14:02 → M MSPAV 15:15
PROVIDERS: ADMIT Internal Medicine Nephrology; ATTEND Internal Medicine
PROC: 5A1D70Z Performance of Urinary Filtration, Intermittent, Less than 6 Hours Per Day (ICD-10-PCS; principal; 2023-11-13)
DX: I13.2 Hypertensive heart and chronic kidney disease with heart failure and with stage 5 chronic kidney disease, or end stage renal disease (principal); J96.11 Chronic respiratory failure with hypoxia; J18.9 Pneumonia, unspecified organism; N18.6 End stage renal disease; E11.22 Type 2 diabetes mellitus with diabetic chronic kidney disease; I27.20 Pulmonary hypertension, unspecified; J44.0 Chronic obstructive pulmonary disease with (acute) lower respiratory infection; Z99.81 Dependence on supplemental oxygen; J44.1 Chronic obstructive pulmonary disease with (acute) exacerbation; N25.81 Secondary hyperparathyroidism of renal origin; E66.01 Morbid (severe) obesity due to excess calories; G47.33 Obstructive sleep apnea (adult) (pediatric); I08.0 Rheumatic disorders of both mitral and aortic valves; D63.8 Anemia in other chronic diseases classified elsewhere; I25.10 Atherosclerotic heart disease of native coronary artery without angina pectoris; F32.A Depression, unspecified; F41.9 Anxiety disorder, unspecified; K21.9 Gastro-esophageal reflux disease without esophagitis; E03.9 Hypothyroidism, unspecified; Z90.79 Acquired absence of other genital organ(s); Z90.49 Acquired absence of other specified parts of digestive tract; Z79.82 Long term (current) use of aspirin; Z79.4 Long term (current) use of insulin; Z79.890 Hormone replacement therapy; Z79.899 Other long term (current) drug therapy; Z88.2 Allergy status to sulfonamides; Z88.5 Allergy status to narcotic agent; Z88.6 Allergy status to analgesic agent; Z88.8 Allergy status to other drugs, medicaments and biological substances; Z99.2 Dependence on renal dialysis; J98.11 Atelectasis; I50.33 Acute on chronic diastolic (congestive) heart failure

== ENCOUNTER 2023-11-22 11:10 | Emergency (ER) | payer OTHER ==
[~2023-11-22] VITALS: Ht 165.1 cm; Wt 101.7 kg
[~2023-11-22 11:10] MED LIST changes: +INSU100I24 SQ; +LANTINJ4 SC
[2023-11-22 11:11] VITALS: TEMP 98.1
[2023-11-22 13:21] LABS: VENOUS BASE EXCESS 6.4 (-2.0-2.0); VENOUS O2 SATURATION 99.3 % (60.0-80.0); VENOUS PARTIAL PRESSURE CO2 22.2 mmHg (38.0-50.0); VENOUS PARTIAL PRESSURE O2 187.2 mmHg (30.0-50.0); VENOUS PH 7.687 UNITS (7.330-7.430); VENOUS STANDARD HCO3 30.3 MMOL/L; VENOUS TOTAL CO2 26.7 MMOL/L (24.0-28.0)
[2023-11-22 13:50] LABS: CK-MB VALUE MASS 1.3 NG/ML (<3.6)
[2023-11-22 13:52] LABS: BILIRUBIN,DIRECT 0.3 MG/DL (<0.4); BILIRUBIN,TOTAL 0.8 MG/DL (0.3-1.2); CALCIUM LEVEL 9.9 MG/DL (8.3-10.6); CREATININE FOR GFR 3.79 MG/DL (0.55-1.30); GLOMERULAR FILTRATION RATE 12.9 (>45); MB/CK RELATIVE INDEX 6.19 (< OR =4); POTASSIUM SERUM 3.7 MMOL/L (3.5-5.1); TOTAL PROTEIN 6.7 G/DL (5.7-8.2)
[2023-11-22 14:13] LABS: BASO % 0.1 % (0.0-1.0); EOS # 0.1 10^3/uL (0.0-0.5); EOS % 0.9 % (0.0-3.0); HEMATOCRIT 28.1 % (36.0-47.0); HEMOGLOBIN 9.2 g/dl (12.0-15.5); LYMPH # 0.4 10^3/uL (1.5-5.0); LYMPH % 5.4 % (24.0-44.0); MEAN CORPUSCULAR HEMOGLOBIN 31.9 pg (27.0-33.0); MEAN CORPUSCULAR HGB CONC 32.7 g/dl (32.0-36.5); MEAN CORPUSCULAR VOLUME 97.6 fl (80.0-96.0); MONO # 0.8 10^3/uL (0.0-0.8); MONO % 11.2 % (2.0-8.0); NEUTROPHILS # 5.5 10^3/uL (1.5-8.5); NEUTROPHILS % 81.8 % (36.0-66.0); PLATELET COUNT, AUTOMATED 106 10^3/uL (150-450); RED BLOOD COUNT 2.88 10^6/uL (4.00-5.40); WHITE BLOOD COUNT 6.7 10^3/uL (4.0-10.0)
[2023-11-22] MEDS ORDERED: ISOVUE-370 76% 100ML VIAL As Ordered ONE (14:31)
[2023-11-22] MEDS: methylPREDNISolone 125MG 2ML VIAL IV ONE (14:33)
[2023-11-22 15:01] VITALS: BP 149/66
[2023-11-22] MEDS: IPRATROPIUM 0.5MG/ALBUTEROL 2.5MG INH SOL UD 3ML (DUONEB) NEB ONE (15:05)
[2023-11-22] MEDS: ALBUTEROL SULFATE 2.5MG/0.5ML INH NEB SOLN INH ONE (15:05)
[2023-11-22 15:06] LABS: CK-MB VALUE MASS 1.1 NG/ML (<3.6)
[2023-11-22 15:09] LABS: MB/CK RELATIVE INDEX 4.23 (< OR =4)
[2023-11-22 16:31] LABS: ABG BASE EXCESS 5.5 (-2.0-2.0); ABG HCO3 28.2 MMOL/L (22.0-26.0); ABG O2 SATURATION 88.8 % (95.0-99.0); ABG PARTIAL PRESSURE CO2 34.1 mmHg (35.0-45.0); ABG PARTIAL PRESSURE O2 53.8 mmHg (75.0-100.0); ABG STANDARD HCO3 29.3 MMOL/L. (22.0-26.0); ABG TOTAL CO2 29.2 MMOL/L (23.0-31.0); ABG pH (ARTERIAL) 7.535 UNITS (7.350-7.450)
[2023-11-22 17:16] VITALS: O2SAT 85
== END 2023-11-22 17:51 | disposition home or self-care (01) ==
LOC: M ED 11:10
DX: J44.1 Chronic obstructive pulmonary disease with (acute) exacerbation (principal); I11.0 Hypertensive heart disease with heart failure; E11.9 Type 2 diabetes mellitus without complications; J90 Pleural effusion, not elsewhere classified; I25.10 Atherosclerotic heart disease of native coronary artery without angina pectoris; N18.6 End stage renal disease; Z99.2 Dependence on renal dialysis; Z98.61 Coronary angioplasty status; Z79.4 Long term (current) use of insulin; Z79.82 Long term (current) use of aspirin; Z79.899 Other long term (current) drug therapy; Z88.2 Allergy status to sulfonamides; Z88.5 Allergy status to narcotic agent; Z88.6 Allergy status to analgesic agent; Z88.8 Allergy status to other drugs, medicaments and biological substances

== ENCOUNTER 2023-11-24 08:02 | Inpatient (IN) | payer OTHER ==
[~2023-11-24] VITALS: Ht 172.7 cm; Wt 101.0 kg
[~2023-11-24 08:02] MED LIST changes: +BUDESONIDE 0.5 MG/2 ML INHALATION SUSPENSION NEB SCH
[2023-11-24 08:50] LABS: BASO % 0.1 % (0.0-1.0); EOS # 0.1 10^3/uL (0.0-0.5); EOS % 0.5 % (0.0-3.0); HEMATOCRIT 28.6 % (36.0-47.0); HEMOGLOBIN 9.3 g/dl (12.0-15.5); LYMPH # 0.4 10^3/uL (1.5-5.0); MEAN CORPUSCULAR HEMOGLOBIN 31.3 pg (27.0-33.0); MEAN CORPUSCULAR HGB CONC 32.5 g/dl (32.0-36.5); MEAN CORPUSCULAR VOLUME 96.3 fl (80.0-96.0); MONO # 0.8 10^3/uL (0.0-0.8); MONO % 7.2 % (2.0-8.0); NEUTROPHILS # 9.7 10^3/uL (1.5-8.5); NEUTROPHILS % 87.5 % (36.0-66.0); PLATELET COUNT, AUTOMATED 133 10^3/uL (150-450); RED BLOOD COUNT 2.97 10^6/uL (4.00-5.40); VENOUS BASE EXCESS 0.2 (-2.0-2.0); VENOUS HCO3 22.3 MMOL/L (23.0-27.0); VENOUS PARTIAL PRESSURE CO2 27.8 mmHg (38.0-50.0); VENOUS PARTIAL PRESSURE O2 60.2 mmHg (30.0-50.0); VENOUS PH 7.523 UNITS (7.330-7.430); VENOUS STANDARD HCO3 24.6 MMOL/L; VENOUS TOTAL CO2 23.2 MMOL/L (24.0-28.0)
[2023-11-24 09:18] LABS: CK-MB VALUE MASS 2.3 NG/ML (<3.6)
[2023-11-24 09:20] LABS: CPK CREATINE PHOSPHOKINASE 24 U/L (34-145); MB/CK RELATIVE INDEX 9.58 (< OR =4)
[2023-11-24 09:22] LABS: THYROID STIMULATING HORMONE 16.399 uIU/ML (0.55-4.78); THYROXINE (T4) 7.6 UG/DL (4.5-10.9)
[2023-11-24 09:24] LABS: ALBUMIN 2.8 G/DL (3.2-5.2); ALKALINE PHOSPHATASE 102 U/L (46-116); ALT/SGPT 15 U/L (7.0-40); AST/SGOT < 8 U/L (<34); BILIRUBIN,DIRECT 0.2 MG/DL (<0.4); BILIRUBIN,TOTAL 0.6 MG/DL (0.3-1.2); BLOOD UREA NITROGEN 78 MG/DL (9-23); CALCIUM LEVEL 10.1 MG/DL (8.3-10.6); CARBON DIOXIDE LEVEL 28 MMOL/L (20-31); CHLORIDE LEVEL 96 MMOL/L (98-107); CREATININE FOR GFR 6.62 MG/DL (0.55-1.30); GLOMERULAR FILTRATION RATE 6.8 (>45); GLUCOSE, FASTING 170 MG/DL (74-106); POTASSIUM SERUM 4.7 MMOL/L (3.5-5.1); SODIUM LEVEL 134 MMOL/L (136-145); TOTAL PROTEIN 6.5 G/DL (5.7-8.2)
[2023-11-24 10:10] LABS: CK-MB VALUE MASS 2.4 NG/ML (<3.6)
[2023-11-24 10:12] LABS: MB/CK RELATIVE INDEX 10.9 (< OR =4)
[2023-11-24] MEDS ORDERED: TOUJ1.2I SC (11:21)
[2023-11-24] MEDS ORDERED: HYDR-3363 PO (11:25)
[2023-11-24] MEDS ORDERED: HOME MED LIST COMPLETE! XX SCH (11:25)
[2023-11-24] MEDS ORDERED: LEVO200T4 PO (11:25)
[2023-11-24] MEDS: traMADol 50 MG TAB PO ONE (11:44)
[2023-11-24] MEDS: FUROSEMIDE 100MG/10ML VIAL IV ONE (11:54)
[2023-11-24] MEDS: ALBUTEROL SULFATE 2.5MG/0.5ML INH NEB SOLN NEB SCH (12:15)
[2023-11-24 14:00] VITALS: BP 138/74; TEMP 97.3; O2SAT 95
[2023-11-24] MEDS: methylPREDNISolone 40MG 1ML VIAL IV SCH (14:07)
[2023-11-24] MEDS: oxyCODONE 5MG TAB PO PRN (14:41)
[2023-11-24] MEDS: **hydrALAZINE HCL** 25 MG TAB PO SCH (16:00)
[2023-11-24 20:07] VITALS: BP 122/50; TEMP 97.9; O2SAT 90
[2023-11-24] MEDS: ADVAIR HFA 230/21MCG INHALER INH SCH (20:47)
[2023-11-24] MEDS: BUDESONIDE 0.5 MG/2 ML INHALATION SUSPENSION NEB SCH (20:49)
[2023-11-24] MEDS: HEPARIN SOD (PORCINE) 5000UNITS/ML 1ML VIAL/SYRINGE SQ SCH (21:00)
[2023-11-24] MEDS: VANICREAM MOISTURIZING SKIN CREAM 113GM TUBE TOP SCH (21:23)
[2023-11-24] MEDS: INSULIN LISPRO (NovoLOG) PER UNIT SC ONE (22:00)
[2023-11-25] MEDS ORDERED: UNRESOLVED CLARIFICATION ENTRY XX SCH (00:01)
[2023-11-25 04:46] VITALS: BP 157/77; TEMP 97.9; O2SAT 95
[2023-11-25] MEDS: LEVOTHYROXINE 100MCG TABLET (0.1MG) PO SCH (05:29)
[2023-11-25] MEDS: EMLA CREAM 5GM TUBE (LIDOCAINE/PRILOCAINE) TOP PRN (05:42)
[2023-11-25] MEDS: INSULIN LISPRO (NovoLOG) PER UNIT SC ONE (06:15)
[2023-11-25] MEDS: TIOTROPIUM INHALER/CAPSULE (SPIRIVA) INH SCH (07:18)
[2023-11-25] MEDS: ASPIRIN 81MG ENTERIC TABLET PO SCH (08:21)
[2023-11-25] MEDS: METOPROLOL SUCC (TopROL XL) 50MG **XL** TAB PO SCH (08:21)
[2023-11-25] MEDS: VENLAFAXINE **XR** 75MG CAPSULE PO SCH (08:21)
[2023-11-25] MEDS: ATORVASTATIN 10 MG TAB PO SCH (08:22)
[2023-11-25] MEDS: LEVEMIR (INSULIN DETEMIR) 1 UNITS/0.01ML SC SCH (08:23)
[2023-11-25] MEDS ORDERED: DEXTROSE 50% 50ML SYRINGE IV PRN (08:45)
[2023-11-25] MEDS ORDERED: GLUCOSE 4 GM CHEW PO PRN (08:45)
[2023-11-25] MEDS ORDERED: GLUCAGON INJ 1MG VIAL SC PRN (08:45)
[2023-11-25] MEDS: INSULIN LISPRO (NovoLOG) PER UNIT SC SCH ×4 (09:20→20:25)
[2023-11-25 11:20] VITALS: O2SAT 95
[2023-11-25] MEDS ORDERED: LIDOCAINE 1% SDV 5ML VIAL SC PRN (11:45)
[2023-11-25] MEDS ORDERED: HEPARIN 1,000UNITS/ML 10ML VIAL (FOR RADIOLOGY & DIALYSIS ONLY) IV PRN (11:45)
[2023-11-25] MEDS ORDERED: SODIUM CHLORIDE 0.9% 1000ML IV PRN (11:45)
[2023-11-25] MEDS: ACETAMINOPHEN TAB 650MG DOSE (2X325MG) PO PRN (11:57)
[2023-11-25] MEDS: (RENVELA) SEVELAMER **CARBONate** 800 MG TAB PO SCH (12:12)
[2023-11-25] MEDS: HEPARIN 1,000UNITS/ML 10ML VIAL (FOR RADIOLOGY & DIALYSIS ONLY) XX SCH (15:31)
[2023-11-25 16:56] VITALS: BP 115/72; TEMP 98.1; O2SAT 95
[2023-11-25] MEDS: methylPREDNISolone 40MG 1ML VIAL IV SCH (17:02)
[2023-11-25] MEDS: EMLA CREAM 5GM TUBE (LIDOCAINE/PRILOCAINE) TOP ONE (19:40)
[2023-11-25 20:05] VITALS: BP 118/72; TEMP 98.6; O2SAT 93
[2023-11-26 04:33] VITALS: BP 131/76; TEMP 98.1; O2SAT 90
[2023-11-26] MEDS ORDERED: HEPARIN 1,000UNITS/ML 10ML VIAL (FOR RADIOLOGY & DIALYSIS ONLY) IV PRN (06:00)
[2023-11-26] MEDS ORDERED: LIDOCAINE 1% SDV 5ML VIAL SC PRN (06:00)
[2023-11-26] MEDS ORDERED: HEPARIN 1,000UNITS/ML 10ML VIAL (FOR RADIOLOGY & DIALYSIS ONLY) XX SCH (06:00)
[2023-11-26] MEDS ORDERED: SODIUM CHLORIDE 0.9% 1000ML IV PRN (06:00)
[2023-11-26] MEDS: traMADol 50 MG TAB PO SCH (07:50)
[2023-11-26 08:26] LABS: BASO % 0.1 % (0.0-1.0); HEMOGLOBIN 8.5 g/dl (12.0-15.5); LYMPH # 0.3 10^3/uL (1.5-5.0); LYMPH % 2.2 % (24.0-44.0); MEAN CORPUSCULAR HEMOGLOBIN 30.5 pg (27.0-33.0); MEAN CORPUSCULAR HGB CONC 31.5 g/dl (32.0-36.5); MEAN CORPUSCULAR VOLUME 96.8 fl (80.0-96.0); MONO # 0.5 10^3/uL (0.0-0.8); MONO % 4.6 % (2.0-8.0); NEUTROPHILS # 10.7 10^3/uL (1.5-8.5); NEUTROPHILS % 92.1 % (36.0-66.0); PLATELET COUNT, AUTOMATED 149 10^3/uL (150-450); RED BLOOD COUNT 2.79 10^6/uL (4.00-5.40); WHITE BLOOD COUNT 11.6 10^3/uL (4.0-10.0)
[2023-11-26 08:43] LABS: HEMOGLOBIN A1c 6.3 % (4.0-6.0)
[2023-11-26] MEDS: LEVEMIR (INSULIN DETEMIR) 1 UNITS/0.01ML SC ONE (08:48)
[2023-11-26 08:56] LABS: CREATININE FOR GFR 4.62 MG/DL (0.55-1.30); GLOMERULAR FILTRATION RATE 10.2 (>45); POTASSIUM SERUM 4.4 MMOL/L (3.5-5.1)
[2023-11-26 12:34] VITALS: BP 114/77; TEMP 97.7; O2SAT 93
[2023-11-26 20:19] VITALS: BP 172/81; TEMP 98.6; O2SAT 94
[2023-11-26] MEDS: traZODone 25MG PER 1/2 TABLET PO PRN (23:30)
[2023-11-27 04:35] VITALS: BP 148/52; TEMP 98.1; O2SAT 90
[2023-11-27] MEDS ORDERED: HEPARIN 1,000UNITS/ML 10ML VIAL (FOR RADIOLOGY & DIALYSIS ONLY) XX SCH (06:00)
[2023-11-27] MEDS ORDERED: SODIUM CHLORIDE 0.9% 1000ML IV PRN (06:00)
[2023-11-27] MEDS ORDERED: LIDOCAINE 1% SDV 5ML VIAL SC PRN (06:00)
[2023-11-27] MEDS: LEVEMIR (INSULIN DETEMIR) 1 UNITS/0.01ML SC SCH (07:38)
[2023-11-27] MEDS: HEPARIN 1,000UNITS/ML 10ML VIAL (FOR RADIOLOGY & DIALYSIS ONLY) IV PRN (10:59)
[2023-11-27] MEDS ORDERED: TRAM100T14 PO (12:43)
[2023-11-27 13:00] VITALS: BP 152/61; TEMP 98.1; O2SAT 97
[2023-11-27] MEDS: INSULIN LISPRO (NovoLOG) PER UNIT SC SCH (13:37)
[2023-11-27 14:58] LABS: CALCIUM LEVEL 9.9 MG/DL (8.3-10.6); CREATININE FOR GFR 1.9 MG/DL (0.55-1.30); GLOMERULAR FILTRATION RATE 28.5 (>45); POTASSIUM SERUM 4.3 MMOL/L (3.5-5.1)
[2023-11-27 15:12] LABS: BASO % 0.2 % (0.0-1.0); EOS % 0.2 % (0.0-3.0); HEMATOCRIT 29.8 % (36.0-47.0); LYMPH # 0.7 10^3/uL (1.5-5.0); LYMPH % 5.5 % (24.0-44.0); MEAN CORPUSCULAR HEMOGLOBIN 32.7 pg (27.0-33.0); MEAN CORPUSCULAR HGB CONC 33.6 g/dl (32.0-36.5); MEAN CORPUSCULAR VOLUME 97.4 fl (80.0-96.0); MONO # 0.6 10^3/uL (0.0-0.8); MONO % 4.8 % (2.0-8.0); NEUTROPHILS % 86.8 % (36.0-66.0); RED BLOOD COUNT 3.06 10^6/uL (4.00-5.40); WHITE BLOOD COUNT 12.6 10^3/uL (4.0-10.0)
[2023-11-27 15:29] LABS: PLATELET COUNT, AUTOMATED 147 10^3/uL (150-450)
[2023-11-28] MEDS: IPRATROPIUM 0.5MG/ALBUTEROL 2.5MG INH SOL UD 3ML (DUONEB) NEB PRN (00:36)
[2023-11-28 05:08] VITALS: BP 167/76; TEMP 97.7; O2SAT 99
[2023-11-28] MEDS ORDERED: LIDOCAINE 1% SDV 5ML VIAL SC PRN (08:10)
[2023-11-28] MEDS ORDERED: HEPARIN 1,000UNITS/ML 10ML VIAL (FOR RADIOLOGY & DIALYSIS ONLY) IV PRN (08:10)
[2023-11-28] MEDS ORDERED: SODIUM CHLORIDE 0.9% 1000ML IV PRN (08:10)
[2023-11-28] MEDS: LEVEMIR (INSULIN DETEMIR) 1 UNITS/0.01ML SC SCH (08:20)
[2023-11-28] MEDS: predniSONE 20 MG TAB PO SCH (09:00)
[2023-11-28] MEDS: HEPARIN 1,000UNITS/ML 10ML VIAL (FOR RADIOLOGY & DIALYSIS ONLY) XX SCH (09:23)
[2023-11-28 13:17] VITALS: BP 163/74; TEMP 97.5; O2SAT 97
[2023-11-28 19:54] VITALS: BP 128/52; TEMP 98.1; O2SAT 95
[2023-11-29 04:47] VITALS: BP 168/74; TEMP 97.6; O2SAT 99
[2023-11-29] MEDS ORDERED: SODIUM CHLORIDE 0.9% 1000ML IV PRN (06:00)
[2023-11-29] MEDS ORDERED: LIDOCAINE 1% SDV 5ML VIAL SC PRN (06:00)
[2023-11-29] MEDS ORDERED: HEPARIN 1,000UNITS/ML 10ML VIAL (FOR RADIOLOGY & DIALYSIS ONLY) IV PRN (06:00)
[2023-11-29 09:22] LABS: BASO % 0.1 % (0.0-1.0); EOS # 0.1 10^3/uL (0.0-0.5); EOS % 0.5 % (0.0-3.0); HEMATOCRIT 29.1 % (36.0-47.0); HEMOGLOBIN 9.2 g/dl (12.0-15.5); LYMPH # 0.2 10^3/uL (1.5-5.0); LYMPH % 2.2 % (24.0-44.0); MEAN CORPUSCULAR HGB CONC 31.6 g/dl (32.0-36.5); MONO # 0.4 10^3/uL (0.0-0.8); MONO % 4.1 % (2.0-8.0); NEUTROPHILS # 9.1 10^3/uL (1.5-8.5); PLATELET COUNT, AUTOMATED 119 10^3/uL (150-450); RED BLOOD COUNT 2.97 10^6/uL (4.00-5.40)
[2023-11-29 09:53] LABS: BLOOD UREA NITROGEN 31 MG/DL (9-23); CALCIUM LEVEL 8.9 MG/DL (8.3-10.6); CARBON DIOXIDE LEVEL 27 MMOL/L (20-31); CHLORIDE LEVEL 98 MMOL/L (98-107); GLUCOSE, FASTING 356 MG/DL (74-106); POTASSIUM SERUM 3.3 MMOL/L (3.5-5.1); SODIUM LEVEL 134 MMOL/L (136-145)
[2023-11-29] MEDS ORDERED: SODIUM CHLORIDE NASAL 0.65% SPRAY BTL (OCEAN) PRN (09:55)
[2023-11-29] MEDS: HEPARIN 1,000UNITS/ML 10ML VIAL (FOR RADIOLOGY & DIALYSIS ONLY) XX SCH (10:12)
[2023-11-29 12:45] LABS: CREATININE FOR GFR 3.43 MG/DL (0.55-1.30); GLOMERULAR FILTRATION RATE 14.4 (>45)
[2023-11-29 13:20] VITALS: BP 158/62; TEMP 97.8; O2SAT 96
[2023-11-29 20:21] VITALS: BP 150/59; TEMP 98.1; O2SAT 100
[2023-11-30] MEDS ORDERED: HEPARIN 1,000UNITS/ML 10ML VIAL (FOR RADIOLOGY & DIALYSIS ONLY) XX SCH (04:20)
[2023-11-30] MEDS ORDERED: SODIUM CHLORIDE 0.9% 1000ML IV PRN (04:20)
[2023-11-30] MEDS ORDERED: LIDOCAINE 1% SDV 5ML VIAL SC PRN (04:20)
[2023-11-30 05:03] VITALS: BP 155/80; TEMP 98.8; O2SAT 96
[2023-11-30] MEDS: HEPARIN 1,000UNITS/ML 10ML VIAL (FOR RADIOLOGY & DIALYSIS ONLY) IV PRN (08:25)
[2023-11-30] MEDS ORDERED: predniSONE 10MG TAB PO SCH (09:00)
[2023-11-30 11:50] LABS: HEPATITIS B SURFACE ANTIGEN NEGATIVE (NEGATIVE)
[2023-11-30 12:45] VITALS: BP 160/67; TEMP 97.5; O2SAT 100
[2023-11-30 20:03] VITALS: BP 146/59; TEMP 97.9; O2SAT 100
[2023-12-01 04:26] VITALS: BP 147/61; TEMP 97.9; O2SAT 95
[2023-12-01 12:00] VITALS: BP 125/60; TEMP 98.1; O2SAT 96
[2023-12-01 19:49] VITALS: BP 144/64; TEMP 98.1; O2SAT 98
[2023-12-02 04:13] VITALS: BP 140/65; TEMP 98.4; O2SAT 92
[2023-12-02] MEDS ORDERED: LIDOCAINE 1% SDV 5ML VIAL SC PRN (06:15)
[2023-12-02] MEDS ORDERED: SODIUM CHLORIDE 0.9% 1000ML IV PRN (06:15)
[2023-12-02] MEDS ORDERED: HEPARIN 1,000UNITS/ML 10ML VIAL (FOR RADIOLOGY & DIALYSIS ONLY) XX SCH (06:15)
[2023-12-02] MEDS: EMLA CREAM 5GM TUBE (LIDOCAINE/PRILOCAINE) TOP SCH (06:27)
[2023-12-02] MEDS: HEPARIN 1,000UNITS/ML 10ML VIAL (FOR RADIOLOGY & DIALYSIS ONLY) IV PRN (08:28)
[2023-12-02 08:52] LABS: HEMATOCRIT 27.2 % (36.0-47.0); HEMOGLOBIN 8.6 g/dl (12.0-15.5); MEAN CORPUSCULAR HEMOGLOBIN 30.6 pg (27.0-33.0); MEAN CORPUSCULAR HGB CONC 31.6 g/dl (32.0-36.5); MEAN CORPUSCULAR VOLUME 96.8 fl (80.0-96.0); RED BLOOD COUNT 2.81 10^6/uL (4.00-5.40); WHITE BLOOD COUNT 8.3 10^3/uL (4.0-10.0)
[2023-12-02 09:07] LABS: PLATELET COUNT, AUTOMATED 86 10^3/uL (150-450)
[2023-12-02 09:23] LABS: ALBUMIN 2.4 G/DL (3.2-5.2); CREATININE FOR GFR 5.11 MG/DL (0.55-1.30); GLOMERULAR FILTRATION RATE 9.1 (>45); PHOSPHORUS LEVEL 5.2 MG/DL (2.4-5.1); POTASSIUM SERUM 3.5 MMOL/L (3.5-5.1)
[2023-12-02] MEDS: DARBEPOETIN 100MCG/0.5ML *DIALYSIS* SYRINGE IV SCH (11:31)
[2023-12-02 19:23] VITALS: BP 152/58; TEMP 98.1; O2SAT 93
[2023-12-03 04:37] VITALS: BP 150/58; TEMP 97.9; O2SAT 94
[2023-12-03] MEDS ORDERED: SODIUM CHLORIDE 0.9% 1000ML IV PRN (07:05)
[2023-12-03] MEDS ORDERED: HEPARIN 1,000UNITS/ML 10ML VIAL (FOR RADIOLOGY & DIALYSIS ONLY) XX SCH (07:05)
[2023-12-03] MEDS ORDERED: LIDOCAINE 1% SDV 5ML VIAL SC PRN (07:05)
[2023-12-03 07:49] VITALS: BP 146/62
[2023-12-03 07:59] LABS: BASO % 0.1 % (0.0-1.0); EOS # 0.1 10^3/uL (0.0-0.5); HEMOGLOBIN 9.7 g/dl (12.0-15.5); LYMPH # 0.5 10^3/uL (1.5-5.0); LYMPH % 6.9 % (24.0-44.0); MEAN CORPUSCULAR HEMOGLOBIN 30.3 pg (27.0-33.0); MEAN CORPUSCULAR HGB CONC 31.3 g/dl (32.0-36.5); MEAN CORPUSCULAR VOLUME 96.9 fl (80.0-96.0); MONO # 0.7 10^3/uL (0.0-0.8); MONO % 10.5 % (2.0-8.0); NEUTROPHILS # 5.6 10^3/uL (1.5-8.5); NEUTROPHILS % 81.1 % (36.0-66.0); WHITE BLOOD COUNT 6.9 10^3/uL (4.0-10.0)
[2023-12-03 08:00] LABS: PLATELET COUNT, AUTOMATED 86 10^3/uL (150-450)
[2023-12-03 08:23] LABS: ALBUMIN 2.6 G/DL (3.2-5.2); CALCIUM LEVEL 9.4 MG/DL (8.3-10.6); CREATININE FOR GFR 4.27 MG/DL (0.55-1.30); GLOMERULAR FILTRATION RATE 11.2 (>45); MAGNESIUM LEVEL 2.3 MG/DL (1.8-2.4); PHOSPHORUS LEVEL 4.8 MG/DL (2.4-5.1); POTASSIUM SERUM 3.9 MMOL/L (3.5-5.1)
[2023-12-03] MEDS: HEPARIN 1,000UNITS/ML 10ML VIAL (FOR RADIOLOGY & DIALYSIS ONLY) IV PRN (08:44)
[2023-12-03 13:00] VITALS: BP 140/78; TEMP 97.7; O2SAT 100
[2023-12-03 15:15] VITALS: O2SAT 97
== END 2023-12-03 15:30 | disposition home or self-care (01) | DRG 194 ==
LOC: M ED 08:02 → EDBD 08:02 → M ED INP 12:10 → M MS5PR 13:45
PROVIDERS: ADMIT Internal Medicine Nephrology; ATTEND Internal Medicine
PROC: 5A1D70Z Performance of Urinary Filtration, Intermittent, Less than 6 Hours Per Day (ICD-10-PCS; 2023-11-26)
PROC: B246ZZZ Ultrasonography of Right and Left Heart (ICD-10-PCS; principal; 2023-11-27)
DX: I13.2 Hypertensive heart and chronic kidney disease with heart failure and with stage 5 chronic kidney disease, or end stage renal disease (principal); J96.11 Chronic respiratory failure with hypoxia; N18.6 End stage renal disease; E11.22 Type 2 diabetes mellitus with diabetic chronic kidney disease; I27.20 Pulmonary hypertension, unspecified; J44.1 Chronic obstructive pulmonary disease with (acute) exacerbation; Z99.81 Dependence on supplemental oxygen; E66.01 Morbid (severe) obesity due to excess calories; K76.0 Fatty (change of) liver, not elsewhere classified; G47.33 Obstructive sleep apnea (adult) (pediatric); I08.0 Rheumatic disorders of both mitral and aortic valves; I25.10 Atherosclerotic heart disease of native coronary artery without angina pectoris; F41.9 Anxiety disorder, unspecified; D64.9 Anemia, unspecified; E03.9 Hypothyroidism, unspecified; F32.A Depression, unspecified; K21.9 Gastro-esophageal reflux disease without esophagitis; G47.00 Insomnia, unspecified; R07.89 Other chest pain; M48.061 Spinal stenosis, lumbar region without neurogenic claudication; Z79.51 Long term (current) use of inhaled steroids; Z79.82 Long term (current) use of aspirin; Z79.4 Long term (current) use of insulin; Z79.890 Hormone replacement therapy; Z79.899 Other long term (current) drug therapy; Z88.1 Allergy status to other antibiotic agents; Z88.2 Allergy status to sulfonamides; Z88.5 Allergy status to narcotic agent; Z88.8 Allergy status to other drugs, medicaments and biological substances; Z86.711 Personal history of pulmonary embolism; Z99.2 Dependence on renal dialysis; Z90.79 Acquired absence of other genital organ(s); Z90.49 Acquired absence of other specified parts of digestive tract; Z87.891 Personal history of nicotine dependence; E21.1 Secondary hyperparathyroidism, not elsewhere classified; E78.5 Hyperlipidemia, unspecified; G89.29 Other chronic pain; I50.33 Acute on chronic diastolic (congestive) heart failure

== ENCOUNTER 2023-12-08 23:12 | Inpatient (IN) | payer OTHER ==
[~2023-12-08] VITALS: Ht 172.7 cm; Wt 101.7 kg
[~2023-12-08 23:12] MED LIST changes: -BUDESONIDE 0.5 MG/2 ML INHALATION SUSPENSION NEB SCH; +LEVO200T4 PO; +TRAM100T14 PO
[2023-12-09] VITALS (7 sets, daily range): BP systolic 125–159; BP diastolic 65–82; TEMP 98.1–98.6; O2SAT 88–97
[2023-12-09] MEDS ORDERED: FUROSEMIDE 100MG/10ML VIAL IV ONE (01:05)
[2023-12-09 01:22] LABS: BASO % 0.3 % (0.0-1.0); EOS # 0.1 10^3/uL (0.0-0.5); EOS % 1.2 % (0.0-3.0); HEMATOCRIT 27.2 % (36.0-47.0); HEMOGLOBIN 8.9 g/dl (12.0-15.5); LYMPH # 0.7 10^3/uL (1.5-5.0); LYMPH % 7.5 % (24.0-44.0); MEAN CORPUSCULAR HEMOGLOBIN 31.3 pg (27.0-33.0); MEAN CORPUSCULAR HGB CONC 32.7 g/dl (32.0-36.5); MEAN CORPUSCULAR VOLUME 95.8 fl (80.0-96.0); MONO # 0.7 10^3/uL (0.0-0.8); MONO % 7.6 % (2.0-8.0); NEUTROPHILS # 7.3 10^3/uL (1.5-8.5); NEUTROPHILS % 82.6 % (36.0-66.0); PLATELET COUNT, AUTOMATED 152 10^3/uL (150-450); RED BLOOD COUNT 2.84 10^6/uL (4.00-5.40); WHITE BLOOD COUNT 8.9 10^3/uL (4.0-10.0)
[2023-12-09] MEDS: IPRATROPIUM 0.5MG/ALBUTEROL 2.5MG INH SOL UD 3ML (DUONEB) NEB ONE ×2 (01:22→05:06)
[2023-12-09 01:44] LABS: CK-MB VALUE MASS 1.5 NG/ML (<3.6)
[2023-12-09 01:46] LABS: ALBUMIN 2.5 G/DL (3.2-5.2); ALKALINE PHOSPHATASE 119 U/L (46-116); ALT/SGPT 15 U/L (7.0-40); AST/SGOT < 8 U/L (<34); BILIRUBIN,DIRECT 0.2 MG/DL (<0.4); BILIRUBIN,TOTAL 0.5 MG/DL (0.3-1.2); BLOOD UREA NITROGEN 54 MG/DL (9-23); CARBON DIOXIDE LEVEL 30 MMOL/L (20-31); CHLORIDE LEVEL 98 MMOL/L (98-107); CPK CREATINE PHOSPHOKINASE 21 U/L (34-145); CREATININE FOR GFR 7.08 MG/DL (0.55-1.30); GLOMERULAR FILTRATION RATE 6.2 (>45); GLUCOSE, FASTING 139 MG/DL (74-106); MB/CK RELATIVE INDEX 7.14 (< OR =4); POTASSIUM SERUM 5.3 MMOL/L (3.5-5.1); SODIUM LEVEL 134 MMOL/L (136-145); TOTAL PROTEIN 6.5 G/DL (5.7-8.2)
[2023-12-09] MEDS ORDERED: HOME MED LIST COMPLETE! XX SCH (05:05)
[2023-12-09] MEDS ORDERED: ACETAMINOPHEN TAB 650MG DOSE (2X325MG) PO PRN (05:35)
[2023-12-09] MEDS ORDERED: DEXTROSE 50% 50ML SYRINGE IV PRN (05:35)
[2023-12-09] MEDS ORDERED: GLUCAGON INJ 1MG VIAL SC PRN (05:35)
[2023-12-09] MEDS ORDERED: GLUCOSE 4 GM CHEW PO PRN (05:35)
[2023-12-09] MEDS: TIOTROPIUM INHALER/CAPSULE (SPIRIVA) INH SCH (08:00)
[2023-12-09] MEDS: INSULIN LISPRO (NovoLOG) PER UNIT SC SCH ×2 (08:07→20:45)
[2023-12-09 08:27] LABS: CK-MB VALUE MASS 2.4 NG/ML (<3.6)
[2023-12-09 08:29] LABS: MB/CK RELATIVE INDEX 10.9 (< OR =4)
[2023-12-09] MEDS: HEPARIN SOD (PORCINE) 5000UNITS/ML 1ML VIAL/SYRINGE SC SCH ×2 (09:00→14:00)
[2023-12-09] MEDS: DOCUSATE SODIUM 100MG CAPSULE PO SCH (09:20)
[2023-12-09] MEDS ORDERED: LIDOCAINE 1% SDV 5ML VIAL SC PRN (10:00)
[2023-12-09] MEDS ORDERED: SODIUM CHLORIDE 0.9% 1000ML IV PRN (10:00)
[2023-12-09] MEDS ORDERED: HEPARIN 1,000UNITS/ML 10ML VIAL (FOR RADIOLOGY & DIALYSIS ONLY) IV PRN (10:00)
[2023-12-09] MEDS: DARBEPOETIN 200MCG/0.4ML *DIALYSIS* SYRINGE IV SCH (11:00)
[2023-12-09] MEDS ORDERED: ACETAMINOPHEN 325 MG TAB PO PRN (12:15)
[2023-12-09] MEDS ORDERED: BUDESONIDE 0.5 MG/2 ML INHALATION SUSPENSION INH PRN (12:15)
[2023-12-09] MEDS: (RENVELA) SEVELAMER **CARBONate** 800 MG TAB PO SCH (12:30)
[2023-12-09] MEDS: HEPARIN 1,000UNITS/ML 10ML VIAL (FOR RADIOLOGY & DIALYSIS ONLY) XX SCH (12:56)
[2023-12-09] MEDS: LEVOTHYROXINE 100MCG TABLET (0.1MG) PO SCH (14:50)
[2023-12-09] MEDS: ATORVASTATIN 10 MG TAB PO SCH (14:50)
[2023-12-09] MEDS: ASPIRIN 81MG ENTERIC TABLET PO SCH (14:51)
[2023-12-09] MEDS: FUROSEMIDE 20 MG TAB PO SCH (14:52)
[2023-12-09] MEDS: VENLAFAXINE **XR** 75MG CAPSULE PO SCH (14:52)
[2023-12-09] MEDS: METOPROLOL SUCC (TopROL XL) 50MG **XL** TAB PO SCH (14:52)
[2023-12-09] MEDS: traMADol ER 100MG TABLET (ULTRAM ER) PO PRN (14:56)
[2023-12-09] MEDS: **hydrALAZINE HCL** 25 MG TAB PO SCH (16:49)
[2023-12-09] MEDS: SYMBICORT 80/4.5MCG INHALER 6GM INH SCH (19:22)
[2023-12-09] MEDS: ALBUTEROL SULFATE 2.5MG/0.5ML INH NEB SOLN INH PRN (19:27)
[2023-12-09] MEDS: VANICREAM MOISTURIZING SKIN CREAM 113GM TUBE TOP SCH (20:45)
[2023-12-09] MEDS: ACETAMINOPHEN TAB 650MG DOSE (2X325MG) PO PRN (20:46)
[2023-12-09] MEDS: FLUTICASONE PROP 0.05% NASAL SPRAY 16 GM (FLONASE) NARES PRN (20:46)
[2023-12-10 04:00] VITALS: BP 153/64; TEMP 97.5; O2SAT 84; O2SAT 94
[2023-12-10] MEDS ORDERED: SODIUM CHLORIDE 0.9% 1000ML IV PRN (06:00)
[2023-12-10] MEDS ORDERED: HEPARIN 1,000UNITS/ML 10ML VIAL (FOR RADIOLOGY & DIALYSIS ONLY) IV PRN (06:00)
[2023-12-10] MEDS ORDERED: LIDOCAINE 1% SDV 5ML VIAL SC PRN (06:00)
[2023-12-10 06:09] LABS: HEMATOCRIT 31.2 % (36.0-47.0); HEMOGLOBIN 9.8 g/dl (12.0-15.5); MEAN CORPUSCULAR HEMOGLOBIN 30.2 pg (27.0-33.0); MEAN CORPUSCULAR HGB CONC 31.4 g/dl (32.0-36.5); MEAN CORPUSCULAR VOLUME 96.3 fl (80.0-96.0); PLATELET COUNT, AUTOMATED 186 10^3/uL (150-450); RED BLOOD COUNT 3.24 10^6/uL (4.00-5.40); WHITE BLOOD COUNT 8.3 10^3/uL (4.0-10.0)
[2023-12-10 06:39] LABS: ALBUMIN 2.7 G/DL (3.2-5.2); BILIRUBIN,TOTAL 0.5 MG/DL (0.3-1.2); CALCIUM LEVEL 10.6 MG/DL (8.3-10.6); CREATININE FOR GFR 5.05 MG/DL (0.55-1.30); GLOMERULAR FILTRATION RATE 9.2 (>45); MAGNESIUM LEVEL 2.4 MG/DL (1.8-2.4); POTASSIUM SERUM 4.3 MMOL/L (3.5-5.1); TOTAL PROTEIN 7.1 G/DL (5.7-8.2)
[2023-12-10] MEDS: HEPARIN 1,000UNITS/ML 10ML VIAL (FOR RADIOLOGY & DIALYSIS ONLY) XX SCH (11:34)
[2023-12-10 12:54] VITALS: BP 125/58; TEMP 97.3; O2SAT 100
[2023-12-10 20:25] VITALS: BP 105/61; TEMP 97.9; O2SAT 99
[2023-12-11] VITALS (8 sets, daily range): BP systolic 114–142; BP diastolic 51–76; TEMP 97.7–97.9; O2SAT 88–99
[2023-12-11] MEDS ORDERED: HEPARIN 1,000UNITS/ML 10ML VIAL (FOR RADIOLOGY & DIALYSIS ONLY) XX SCH (06:00)
[2023-12-11] MEDS ORDERED: SODIUM CHLORIDE 0.9% 1000ML IV PRN (06:00)
[2023-12-11] MEDS ORDERED: LIDOCAINE 1% SDV 5ML VIAL SC PRN (06:00)
[2023-12-11 06:47] LABS: HEMATOCRIT 27.5 % (36.0-47.0); HEMOGLOBIN 8.5 g/dl (12.0-15.5); MEAN CORPUSCULAR HEMOGLOBIN 29.7 pg (27.0-33.0); MEAN CORPUSCULAR HGB CONC 30.9 g/dl (32.0-36.5); MEAN CORPUSCULAR VOLUME 96.2 fl (80.0-96.0); PLATELET COUNT, AUTOMATED 197 10^3/uL (150-450); RED BLOOD COUNT 2.86 10^6/uL (4.00-5.40); WHITE BLOOD COUNT 7.6 10^3/uL (4.0-10.0)
[2023-12-11] MEDS: EMLA CREAM 5GM TUBE (LIDOCAINE/PRILOCAINE) TOP PRN (06:49)
[2023-12-11 07:17] LABS: ALBUMIN 2.4 G/DL (3.2-5.2); ALKALINE PHOSPHATASE 130 U/L (46-116); ALT/SGPT 13 U/L (7.0-40); AST/SGOT < 8 U/L (<34); BILIRUBIN,TOTAL 0.3 MG/DL (0.3-1.2); BLOOD UREA NITROGEN 18 MG/DL (9-23); CALCIUM LEVEL 10.6 MG/DL (8.3-10.6); CARBON DIOXIDE LEVEL 30 MMOL/L (20-31); CHLORIDE LEVEL 101 MMOL/L (98-107); CREATININE FOR GFR 3.89 MG/DL (0.55-1.30); GLOMERULAR FILTRATION RATE 12.5 (>45); GLUCOSE, FASTING 144 MG/DL (74-106); POTASSIUM SERUM 4.2 MMOL/L (3.5-5.1); SODIUM LEVEL 139 MMOL/L (136-145); TOTAL PROTEIN 6.6 G/DL (5.7-8.2)
[2023-12-11] MEDS ORDERED: METOPROLOL SUCC (TopROL XL) 50MG **XL** TAB PO ONE (08:15)
[2023-12-11] MEDS: HEPARIN 1,000UNITS/ML 10ML VIAL (FOR RADIOLOGY & DIALYSIS ONLY) IV PRN (10:50)
[2023-12-12 04:00] VITALS: BP 112/54; TEMP 97.5; O2SAT 98
[2023-12-12] MEDS ORDERED: LIDOCAINE 1% SDV 5ML VIAL SC PRN (06:00)
[2023-12-12] MEDS ORDERED: HEPARIN 1,000UNITS/ML 10ML VIAL (FOR RADIOLOGY & DIALYSIS ONLY) XX SCH (06:00)
[2023-12-12] MEDS ORDERED: SODIUM CHLORIDE 0.9% 1000ML IV PRN (06:00)
[2023-12-12] MEDS: HEPARIN 1,000UNITS/ML 10ML VIAL (FOR RADIOLOGY & DIALYSIS ONLY) IV PRN (08:48)
[2023-12-12 08:59] LABS: HEMATOCRIT 25.7 % (36.0-47.0); MEAN CORPUSCULAR HEMOGLOBIN 29.6 pg (27.0-33.0); MEAN CORPUSCULAR HGB CONC 31.1 g/dl (32.0-36.5); MEAN CORPUSCULAR VOLUME 95.2 fl (80.0-96.0); PLATELET COUNT, AUTOMATED 192 10^3/uL (150-450); WHITE BLOOD COUNT 6.8 10^3/uL (4.0-10.0)
[2023-12-12 09:00] VITALS: O2SAT 96
[2023-12-12 09:24] LABS: ALBUMIN 2.3 G/DL (3.2-5.2); ALKALINE PHOSPHATASE 127 U/L (46-116); ALT/SGPT 13 U/L (7.0-40); AST/SGOT < 8 U/L (<34); BILIRUBIN,TOTAL 0.3 MG/DL (0.3-1.2); BLOOD UREA NITROGEN 16 MG/DL (9-23); CALCIUM LEVEL 9.9 MG/DL (8.3-10.6); CARBON DIOXIDE LEVEL 28 MMOL/L (20-31); CHLORIDE LEVEL 98 MMOL/L (98-107); CREATININE FOR GFR 3.78 MG/DL (0.55-1.30); GLOMERULAR FILTRATION RATE 12.9 (>45); GLUCOSE, FASTING 323 MG/DL (74-106); POTASSIUM SERUM 3.5 MMOL/L (3.5-5.1); SODIUM LEVEL 135 MMOL/L (136-145); TOTAL PROTEIN 6.1 G/DL (5.7-8.2)
[2023-12-12 12:00] VITALS: BP 100/56; TEMP 97.5; O2SAT 93
[2023-12-12 12:17] VITALS: BP 100/56; TEMP 97.5; O2SAT 99
[2023-12-12 16:38] VITALS: BP 112/50; TEMP 97.7; O2SAT 96
[2023-12-12 21:00] VITALS: BP 114/48; TEMP 97.7; O2SAT 96
[2023-12-13 03:20] VITALS: BP 116/48; TEMP 97.7; O2SAT 94
[2023-12-13] MEDS ORDERED: SODIUM CHLORIDE 0.9% 1000ML IV PRN (06:55)
[2023-12-13] MEDS ORDERED: LIDOCAINE 1% SDV 5ML VIAL SC PRN (06:55)
[2023-12-13] MEDS: HEPARIN 1,000UNITS/ML 10ML VIAL (FOR RADIOLOGY & DIALYSIS ONLY) IV PRN (08:24)
[2023-12-13 12:15] VITALS: BP 124/60; TEMP 97.5; O2SAT 100
[2023-12-13] MEDS ORDERED: PROMETHAZINE 25MG/ML 1ML VIAL IV PRN (15:35)
[2023-12-13 15:50] VITALS: BP 125/59; TEMP 97.3; O2SAT 98
[2023-12-13] MEDS ORDERED: PROMETHAZINE 25MG SUPP PR PRN (16:30)
[2023-12-13 20:00] VITALS: BP_SYST 129; BP_SYST 130; BP_DIAS 60; TEMP 97.5; TEMP 97.7; O2SAT 100
[2023-12-13] MEDS: HEPARIN 1,000UNITS/ML 10ML VIAL (FOR RADIOLOGY & DIALYSIS ONLY) XX SCH (20:37)
[2023-12-14 04:00] VITALS: BP 128/99; TEMP 98.6; O2SAT 92
[2023-12-14] MEDS ORDERED: HEPARIN 1,000UNITS/ML 10ML VIAL (FOR RADIOLOGY & DIALYSIS ONLY) XX SCH (06:50)
[2023-12-14] MEDS ORDERED: LIDOCAINE 1% SDV 5ML VIAL SC PRN (06:50)
[2023-12-14] MEDS ORDERED: SODIUM CHLORIDE 0.9% 1000ML IV PRN (06:50)
[2023-12-14] MEDS: RIZATRIPTAN BENZOATE 10 MG TAB PO ONE (09:31)
[2023-12-14] MEDS: HEPARIN 1,000UNITS/ML 10ML VIAL (FOR RADIOLOGY & DIALYSIS ONLY) IV PRN (09:49)
[2023-12-14 12:18] VITALS: BP 129/64; TEMP 97.9; O2SAT 100
[2023-12-14] MEDS: NITROGLYCERIN 0.4MG SUBL TABLET SL STA (15:38)
[2023-12-14] MEDS: MORPHINE 2 MG/ML 1ML VIAL IV ONE (15:44)
[2023-12-14] MEDS: PANTOPRAZOLE 40MG VIAL IV ONE (15:45)
[2023-12-14] MEDS ORDERED: NITROGLYCERIN 0.4MG SUBL TABLET SL PRN (15:55)
[2023-12-14] MEDS: SUCRALFATE SUSP 1GM/10ML UD PO ONE (16:04)
[2023-12-14 17:08] LABS: CK-MB VALUE MASS 1.7 NG/ML (<3.6)
[2023-12-14 17:09] LABS: CPK CREATINE PHOSPHOKINASE < 15 U/L (34-145)
[2023-12-14] MEDS: RANOLAZINE 500MG ER TAB PO ONE (17:36)
[2023-12-14 20:00] VITALS: BP 100/40; TEMP 97.9; O2SAT 96
[2023-12-14 20:43] VITALS: BP 124/84; TEMP 97.7; O2SAT 100
[2023-12-14 22:19] LABS: CK-MB VALUE MASS 1.6 NG/ML (<3.6)
[2023-12-14 22:23] LABS: MB/CK RELATIVE INDEX 2.8 (< OR =4)
[2023-12-15 04:00] VITALS: BP 150/74; TEMP 97.7; O2SAT 95
[2023-12-15 04:06] LABS: CK-MB VALUE MASS 1.5 NG/ML (<3.6)
[2023-12-15 04:47] LABS: MB/CK RELATIVE INDEX 5.55 (< OR =4)
[2023-12-15 11:35] VITALS: BP 124/58; TEMP 97.7; O2SAT 100
[2023-12-15] MEDS: BENZONATATE 100MG CAPSULE PO SCH (15:44)
[2023-12-15 19:58] VITALS: BP 130/57; TEMP 97.7; O2SAT 98
[2023-12-15] MEDS: traZODone 25MG PER 1/2 TABLET PO ONE (23:04)
[2023-12-16 04:00] VITALS: BP 136/68; TEMP 98.1; O2SAT 97
[2023-12-16] MEDS ORDERED: LIDOCAINE 1% SDV 5ML VIAL SC PRN (06:00)
[2023-12-16] MEDS ORDERED: HEPARIN 1,000UNITS/ML 10ML VIAL (FOR RADIOLOGY & DIALYSIS ONLY) XX SCH (06:00)
[2023-12-16] MEDS ORDERED: SODIUM CHLORIDE 0.9% 1000ML IV PRN (06:00)
[2023-12-16 08:26] LABS: HEMATOCRIT 26.1 % (36.0-47.0); HEMOGLOBIN 8.2 g/dl (12.0-15.5); MEAN CORPUSCULAR HEMOGLOBIN 29.6 pg (27.0-33.0); MEAN CORPUSCULAR HGB CONC 31.4 g/dl (32.0-36.5); MEAN CORPUSCULAR VOLUME 94.2 fl (80.0-96.0); PLATELET COUNT, AUTOMATED 149 10^3/uL (150-450); RED BLOOD COUNT 2.77 10^6/uL (4.00-5.40); WHITE BLOOD COUNT 5.4 10^3/uL (4.0-10.0)
[2023-12-16 08:56] LABS: ALBUMIN 2.4 G/DL (3.2-5.2); CALCIUM LEVEL 9.6 MG/DL (8.3-10.6); CREATININE FOR GFR 5.73 MG/DL (0.55-1.30); PHOSPHORUS LEVEL 5.2 MG/DL (2.4-5.1); POTASSIUM SERUM 3.8 MMOL/L (3.5-5.1)
[2023-12-16] MEDS: HEPARIN 1,000UNITS/ML 10ML VIAL (FOR RADIOLOGY & DIALYSIS ONLY) IV PRN (09:09)
[2023-12-16 12:00] VITALS: BP 132/58; TEMP 97.7; O2SAT 100
[2023-12-16] MEDS: ARTIFICIAL TEARS DROPS 15ML BTL (VISINE DRY RELIEF) OU SCH (17:00)
[2023-12-16] MEDS ORDERED: OLOPATADINE 0.1% OPHTH SOL 5ML(PATANOL) OU SCH (17:00)
[2023-12-16 19:50] VITALS: BP 126/59; TEMP 98.1; O2SAT 100
[2023-12-16] MEDS: OLOPATADINE 0.1% OPHTH SOL 5ML(PATANOL) OU SCH (20:47)
[2023-12-17 03:53] VITALS: BP 136/67; TEMP 97.5; O2SAT 99
[2023-12-17] MEDS ORDERED: SODIUM CHLORIDE 0.9% 1000ML IV PRN (06:00)
[2023-12-17] MEDS ORDERED: HEPARIN 1,000UNITS/ML 10ML VIAL (FOR RADIOLOGY & DIALYSIS ONLY) IV PRN (06:00)
[2023-12-17] MEDS ORDERED: LIDOCAINE 1% SDV 5ML VIAL SC PRN (06:00)
[2023-12-17 10:00] LABS: CALCIUM LEVEL 10.5 MG/DL (8.3-10.6); CREATININE FOR GFR 4.42 MG/DL (0.55-1.30); GLOMERULAR FILTRATION RATE 10.8 (>45); MAGNESIUM LEVEL 2.5 MG/DL (1.8-2.4); POTASSIUM SERUM 4.1 MMOL/L (3.5-5.1)
[2023-12-17 12:00] VITALS: BP 140/67; TEMP 97.5; O2SAT 100
[2023-12-17] MEDS: HEPARIN 1,000UNITS/ML 10ML VIAL (FOR RADIOLOGY & DIALYSIS ONLY) XX SCH (14:08)
[2023-12-17 20:08] VITALS: BP 101/52; TEMP 97.9; O2SAT 100
[2023-12-18] MEDS ORDERED: LIDOCAINE 1% SDV 5ML VIAL SC PRN (00:35)
[2023-12-18] MEDS ORDERED: HEPARIN 1,000UNITS/ML 10ML VIAL (FOR RADIOLOGY & DIALYSIS ONLY) XX SCH (00:35)
[2023-12-18] MEDS ORDERED: SODIUM CHLORIDE 0.9% 1000ML IV PRN (00:35)
[2023-12-18 03:50] VITALS: BP 132/66; TEMP 97.5; O2SAT 100
[2023-12-18 06:25] LABS: CALCIUM LEVEL 10.7 MG/DL (8.3-10.6); CREATININE FOR GFR 3.75 MG/DL (0.55-1.30); MAGNESIUM LEVEL 2.4 MG/DL (1.8-2.4); POTASSIUM SERUM 4.1 MMOL/L (3.5-5.1)
[2023-12-18] MEDS: HEPARIN 1,000UNITS/ML 10ML VIAL (FOR RADIOLOGY & DIALYSIS ONLY) IV PRN (09:14)
[2023-12-18 13:01] VITALS: BP 115/68; TEMP 97.2; O2SAT 100
[2023-12-18 17:35] VITALS: BP 119/63; TEMP 97.7; O2SAT 100
[2023-12-18 20:00] VITALS: BP 94/46; TEMP 98.2; O2SAT 99
[2023-12-19 04:00] VITALS: BP 123/70; TEMP 97.7; O2SAT 100
[2023-12-19] MEDS ORDERED: MIRALAX *UNIT DOSE* 17GM PACKET PO PRN (06:50)
[2023-12-19 07:09] LABS: BASO % 0.6 % (0.0-1.0); EOS # 0.1 10^3/uL (0.0-0.5); EOS % 1.3 % (0.0-3.0); HEMATOCRIT 30.1 % (36.0-47.0); HEMOGLOBIN 9.5 g/dl (12.0-15.5); LYMPH # 0.7 10^3/uL (1.5-5.0); LYMPH % 13.2 % (24.0-44.0); MEAN CORPUSCULAR HEMOGLOBIN 29.4 pg (27.0-33.0); MEAN CORPUSCULAR HGB CONC 31.6 g/dl (32.0-36.5); MEAN CORPUSCULAR VOLUME 93.2 fl (80.0-96.0); MONO % 18.3 % (2.0-8.0); NEUTROPHILS # 3.6 10^3/uL (1.5-8.5); NEUTROPHILS % 65.7 % (36.0-66.0); PLATELET COUNT, AUTOMATED 169 10^3/uL (150-450); RED BLOOD COUNT 3.23 10^6/uL (4.00-5.40); WHITE BLOOD COUNT 5.5 10^3/uL (4.0-10.0)
[2023-12-19 07:34] LABS: CALCIUM LEVEL 10.4 MG/DL (8.3-10.6); CREATININE FOR GFR 3.79 MG/DL (0.55-1.30); GLOMERULAR FILTRATION RATE 12.9 (>45); MAGNESIUM LEVEL 2.3 MG/DL (1.8-2.4); POTASSIUM SERUM 4.1 MMOL/L (3.5-5.1)
[2023-12-19] MEDS: SENOKOT S TAB PO SCH (08:14)
[2023-12-19 12:00] VITALS: BP 133/60; TEMP 97.7; O2SAT 100
[2023-12-19 20:00] VITALS: BP 133/59; TEMP 97.7; O2SAT 100
[2023-12-20 04:00] VITALS: BP 144/72; TEMP 97.7; O2SAT 100
[2023-12-20] MEDS ORDERED: LIDOCAINE 1% SDV 5ML VIAL SC PRN (06:00)
[2023-12-20] MEDS ORDERED: HEPARIN 1,000UNITS/ML 10ML VIAL (FOR RADIOLOGY & DIALYSIS ONLY) IV PRN (06:00)
[2023-12-20] MEDS ORDERED: SODIUM CHLORIDE 0.9% 1000ML IV PRN (06:00)
[2023-12-20 06:34] LABS: CALCIUM LEVEL 10.6 MG/DL (8.3-10.6); CREATININE FOR GFR 5.65 MG/DL (0.55-1.30); GLOMERULAR FILTRATION RATE 8.1 (>45); MAGNESIUM LEVEL 2.7 MG/DL (1.8-2.4); POTASSIUM SERUM 4.4 MMOL/L (3.5-5.1)
[2023-12-20] MEDS: HEPARIN 1,000UNITS/ML 10ML VIAL (FOR RADIOLOGY & DIALYSIS ONLY) XX SCH (11:20)
[2023-12-20 12:56] VITALS: BP 147/70; TEMP 97.5; O2SAT 100
[2023-12-20 20:00] VITALS: BP 118/62; TEMP 97.7; O2SAT 98
[2023-12-21 03:57] VITALS: BP 137/71; TEMP 97.7; O2SAT 97
[2023-12-21] MEDS ORDERED: HEPARIN 1,000UNITS/ML 10ML VIAL (FOR RADIOLOGY & DIALYSIS ONLY) IV PRN (06:00)
[2023-12-21] MEDS ORDERED: SODIUM CHLORIDE 0.9% 1000ML IV PRN (06:00)
[2023-12-21] MEDS ORDERED: LIDOCAINE 1% SDV 5ML VIAL SC PRN (06:00)
[2023-12-21 08:31] LABS: BASO % 0.5 % (0.0-1.0); LYMPH # 0.5 10^3/uL (1.5-5.0); LYMPH % 12.2 % (24.0-44.0); MEAN CORPUSCULAR HEMOGLOBIN 29.6 pg (27.0-33.0); MEAN CORPUSCULAR HGB CONC 30.9 g/dl (32.0-36.5); MEAN CORPUSCULAR VOLUME 95.9 fl (80.0-96.0); MONO # 0.7 10^3/uL (0.0-0.8); MONO % 16.8 % (2.0-8.0); NEUTROPHILS # 2.7 10^3/uL (1.5-8.5); PLATELET COUNT, AUTOMATED 110 10^3/uL (150-450); RED BLOOD COUNT 1.96 10^6/uL (4.00-5.40); WHITE BLOOD COUNT 3.9 10^3/uL (4.0-10.0)
[2023-12-21 08:36] LABS: HEMATOCRIT 18.8 % (36.0-47.0); HEMOGLOBIN 5.8 g/dl (12.0-15.5)
[2023-12-21 08:57] LABS: CALCIUM LEVEL 10.1 MG/DL (8.3-10.6); CREATININE FOR GFR 4.34 MG/DL (0.55-1.30); MAGNESIUM LEVEL 2.4 MG/DL (1.8-2.4); POTASSIUM SERUM 3.7 MMOL/L (3.5-5.1)
[2023-12-21 09:24] LABS: BASO % 0.7 % (0.0-1.0); EOS # 0.1 10^3/uL (0.0-0.5); EOS % 1.1 % (0.0-3.0); HEMATOCRIT 30.5 % (36.0-47.0); LYMPH # 0.7 10^3/uL (1.5-5.0); LYMPH % 13.1 % (24.0-44.0); MEAN CORPUSCULAR HEMOGLOBIN 29.7 pg (27.0-33.0); MEAN CORPUSCULAR HGB CONC 31.5 g/dl (32.0-36.5); MEAN CORPUSCULAR VOLUME 94.4 fl (80.0-96.0); MONO # 0.9 10^3/uL (0.0-0.8); MONO % 16.1 % (2.0-8.0); NEUTROPHILS # 3.9 10^3/uL (1.5-8.5); NEUTROPHILS % 67.9 % (36.0-66.0); PLATELET COUNT, AUTOMATED 161 10^3/uL (150-450); RED BLOOD COUNT 3.23 10^6/uL (4.00-5.40); WHITE BLOOD COUNT 5.7 10^3/uL (4.0-10.0)
[2023-12-21 09:37] LABS: HEMOGLOBIN 9.6 g/dl (12.0-15.5)
[2023-12-21] MEDS: HEPARIN 1,000UNITS/ML 10ML VIAL (FOR RADIOLOGY & DIALYSIS ONLY) XX SCH (10:29)
[2023-12-21 12:00] VITALS: BP 136/69; TEMP 97.3; O2SAT 100
[2023-12-21 15:51] VITALS: BP 127/63
[2023-12-21 19:59] VITALS: BP 122/63; TEMP 97.5; O2SAT 100
[2023-12-22 04:00] VITALS: BP 124/64; TEMP 97.7; O2SAT 100
[2023-12-22 07:26] LABS: CALCIUM LEVEL 10.6 MG/DL (8.3-10.6); GLOMERULAR FILTRATION RATE 12.1 (>45); MAGNESIUM LEVEL 2.3 MG/DL (1.8-2.4); POTASSIUM SERUM 4.4 MMOL/L (3.5-5.1)
[2023-12-22 07:45] VITALS: BP 129/64; O2SAT 100
[2023-12-22 12:00] VITALS: BP 131/60; TEMP 97.5; O2SAT 100
[2023-12-22 20:20] VITALS: BP 145/61; TEMP 97.9; O2SAT 100
[2023-12-23 04:16] VITALS: BP 135/69; TEMP 98.1; O2SAT 97
[2023-12-23] MEDS ORDERED: LIDOCAINE 1% SDV 5ML VIAL SC PRN (06:00)
[2023-12-23] MEDS ORDERED: HEPARIN 1,000UNITS/ML 10ML VIAL (FOR RADIOLOGY & DIALYSIS ONLY) XX SCH (06:00)
[2023-12-23] MEDS ORDERED: SODIUM CHLORIDE 0.9% 1000ML IV PRN (06:00)
[2023-12-23 06:30] LABS: BASO # 0.1 10^3/uL (0.0-0.2); EOS # 0.1 10^3/uL (0.0-0.5); HEMATOCRIT 28.8 % (36.0-47.0); HEMOGLOBIN 8.9 g/dl (12.0-15.5); LYMPH # 0.7 10^3/uL (1.5-5.0); LYMPH % 12.3 % (24.0-44.0); MEAN CORPUSCULAR HEMOGLOBIN 29.2 pg (27.0-33.0); MEAN CORPUSCULAR HGB CONC 30.9 g/dl (32.0-36.5); MEAN CORPUSCULAR VOLUME 94.4 fl (80.0-96.0); MONO % 16.3 % (2.0-8.0); NEUTROPHILS # 4.1 10^3/uL (1.5-8.5); NEUTROPHILS % 68.4 % (36.0-66.0); PLATELET COUNT, AUTOMATED 154 10^3/uL (150-450); RED BLOOD COUNT 3.05 10^6/uL (4.00-5.40); WHITE BLOOD COUNT 5.9 10^3/uL (4.0-10.0)
[2023-12-23 06:36] VITALS: BP 129/70
[2023-12-23 07:01] LABS: CALCIUM LEVEL 10.5 MG/DL (8.3-10.6); CREATININE FOR GFR 5.87 MG/DL (0.55-1.30); GLOMERULAR FILTRATION RATE 7.8 (>45); MAGNESIUM LEVEL 2.6 MG/DL (1.8-2.4); POTASSIUM SERUM 4.2 MMOL/L (3.5-5.1)
[2023-12-23] MEDS: HEPARIN 1,000UNITS/ML 10ML VIAL (FOR RADIOLOGY & DIALYSIS ONLY) IV PRN (11:43)
== END 2023-12-23 14:09 | disposition short-term general hospital (02) | DRG 194 ==
LOC: M ED 23:12 → M ED INP 12-09 05:02 → M MSPAV 12-09 08:21
PROVIDERS: ADMIT Family Medicine; ATTEND Student in an Organized Health Care Education/Training Program
PROC: 5A1D70Z Performance of Urinary Filtration, Intermittent, Less than 6 Hours Per Day (ICD-10-PCS; principal; 2023-12-17)
DX: I13.2 Hypertensive heart and chronic kidney disease with heart failure and with stage 5 chronic kidney disease, or end stage renal disease (principal); N18.6 End stage renal disease; J96.11 Chronic respiratory failure with hypoxia; N25.81 Secondary hyperparathyroidism of renal origin; E11.22 Type 2 diabetes mellitus with diabetic chronic kidney disease; I27.20 Pulmonary hypertension, unspecified; E87.1 Hypo-osmolality and hyponatremia; J81.1 Chronic pulmonary edema; Z99.81 Dependence on supplemental oxygen; E66.01 Morbid (severe) obesity due to excess calories; K76.0 Fatty (change of) liver, not elsewhere classified; D63.1 Anemia in chronic kidney disease; E03.9 Hypothyroidism, unspecified; E78.5 Hyperlipidemia, unspecified; E87.70 Fluid overload, unspecified; F39 Unspecified mood [affective] disorder; G47.33 Obstructive sleep apnea (adult) (pediatric); G89.29 Other chronic pain; I25.10 Atherosclerotic heart disease of native coronary artery without angina pectoris; J44.9 Chronic obstructive pulmonary disease, unspecified; K21.9 Gastro-esophageal reflux disease without esophagitis; M48.061 Spinal stenosis, lumbar region without neurogenic claudication; M54.50 Low back pain, unspecified; Z68.32 Body mass index [BMI] 32.0-32.9, adult; Z79.4 Long term (current) use of insulin; I35.0 Nonrheumatic aortic (valve) stenosis; Z88.8 Allergy status to other drugs, medicaments and biological substances; Z88.2 Allergy status to sulfonamides; Z88.6 Allergy status to analgesic agent; Z88.5 Allergy status to narcotic agent; Z79.899 Other long term (current) drug therapy; Z79.82 Long term (current) use of aspirin; R91.8 Other nonspecific abnormal finding of lung field; Z87.891 Personal history of nicotine dependence